=== PATIENT | male | born 1945 | race Caucasian/White ===

== ENCOUNTER → 2018-01-12 | Outpatient (CLI) | payer OTHER ==
[~2018-01-12] MED LIST: ASPEC325 PO; ATOR-22 PO; COENZYME PO; GLC500 PO; MULT-506 PO; NSP500 PO; OMEG10007 PO
--- NOTE | 2018-01-12 10:37 | DIAGNOSTIC IMAGING REPORT ---
HEAD WITHOUT CONTRAST (CT) CLINICAL HISTORY: 72 years-old Male with UNSPECIFIED SYMPTOMS, R/O CVA. Acute strokelike symptoms with aphasia TECHNIQUE: Multiple axial CT images of the head were obtained without contrast. A dose lowering technique was utilized adhering to the principles of ALARA. CT DOSE: 788.63 mGycm COMPARISON: Head CT 03/02/2008. FINDINGS: No acute intracranial hemorrhage, midline shift, intracranial mass, hydrocephalus, territorial ischemia or abnormal extra-axial collection. Moderate degree of ill-defined areas of low-attenuation within the periventricular white matter of the cerebral hemispheres bilaterally have progressed from prior study and suggests chronic microvascular ischemic changes. Cerebral vascular calcifications are seen at the level of the skull base. The calvarium is intact. Small right mastoid effusion. Left mastoid air cells are clear. Mild mucoperiosteal thickening of the ethmoid air cells and maxillary sinuses. Soft tissues and orbits are unremarkable. IMPRESSION: 1. No acute intracranial abnormality identified. 2. Progressively worsened chronic microvascular ischemic changes. 3. Small right mastoid effusion. The above report was generated using voice recognition software. It may contain grammatical, syntax or spelling errors. Electronically signed by: Antonio Whipple M.D. 01/12/2018 10:36 AM Dictated Date/Time: 01/12/2018 10:34 AM
== END | disposition home or self-care (01) ==
LOC: C.CTS 10:17
PROVIDERS: ATTEND Student in an Organized Health Care Education/Training Program
DX: R29.90 Unspecified symptoms and signs involving the nervous system (principal); H93.91 Unspecified disorder of right ear

== ENCOUNTER 2019-11-11 18:52 | Inpatient (IN) ==
[2019-11-11] MEDS ORDERED: SODIUM CHLORIDE 0.9% 1000ML 1,000 ML IV SCH (19:30)
--- NOTE | 2019-11-11 19:51 | XRay Report ---
XR chest 1V portable CLINICAL HISTORY: weakness COMPARISON STUDY: 08/08/2018 FINDINGS: The cardiac and mediastinal contours are normal. There is no evidence of focal pulmonary co nsolidation. There is no evidence of failure. No pleural effusions are visualized.[There is a 4 mm ca lcified left upper lung zone granuloma. IMPRESSION: No active disease in the chest. ACT 112: Negative or not required by law. Electronically signed by: Gordo Green M.D. 11/11/2019 7:50 PM
[2019-11-11 20:08] LABS: Hematocrit (blood only) 41.5 % (42-52); Hemoglobin 14.7 g/dL (14.0-18.0); Mean Corpuscular Hemoglobin 30.9 pg (25-34); Mean Corpuscular Hgb Conc 35.4 g/dL (32-36); Mean Corpuscular Volume 87.4 fL (80-100); Mean Platelet Volume 10.6 fL (7.4-10.4); Platelet Count 133 K/uL (130-400); RDW Coefficient of Variation 12.6 % (11.5-14.5); RDW Standard Deviation 40.4 fL (36.4-46.3); Red Blood Count 4.75 M/uL (4.7-6.1); White Blood Count 13.16 K/uL (4.8-10.8)
[2019-11-11 20:26] LABS: Albumin Level 3.8 gm/dl (3.4-5.0); BUN Creatinine Ratio 8.6 (10-20); Calcium 9.3 mg/dl (8.5-10.1); Creatinine Clr Calc Pharmacy 28.3 ml/min; Est GFR (African American) 32.3; Est GFR (Non-African American) 27.9; Potassium 3.5 mmol/L (3.5-5.1)
--- NOTE | 2019-11-11 20:28 | CT Scan Report ---
CT head/brain wo con CLINICAL HISTORY: weakness, abnormal gait, COMPARISON STUDY: 04/10/2018 TECHNIQUE: Axial CT of the brain is performed from the vertex to the skull base. IV contrast was not administered for this examination. A dose lowering technique was utilized adhering to the principles of ALARA. CT DOSE: 624.14 mGycm FINDINGS: No intra or extra-axial mass lesions are visualized. There is no CT evidence of acute cortical infarc tion. There is no evidence of midline shift. There is no acute hemorrhage. No calvarial fractures ar e visualized. There are patchy white matter hypodensities likely on a small vessel basis. There is an old lacunar i nfarct within the deep white matter of the left parietal region There is no evidence of pathologic ventricular dilatation. There is no evidence of acute sinusitis IMPRESSION: No acute intracranial findings ACT 112: Negative or not required by law. Electronically signed by: Gordo Green M.D. 11/11/2019 8:27 PM
[2019-11-11 20:30] LABS: Basophils # (auto) 0.01 K/uL (0-0.2); Basophils % (auto) 0.1 %; Immature Granulocytes # (auto) 0.04 K/uL (0.00-0.02); Immature Granulocytes % (auto) 0.3 %; Lymphocytes # (auto) 0.51 K/uL (1.2-3.4); Lymphocytes % (auto) 3.9 %; Monocytes # (auto) 0.81 K/uL (0.11-0.59); Monocytes % (auto) 6.2 %; Neutrophils # (auto) 11.79 K/uL (1.4-6.5); Neutrophils % (auto) 89.5 %
[2019-11-11 20:45] LABS: Bilirubin,Total 0.7 mg/dl (0.2-1); Globulin 3.8 gm/dl (2.5-4.0); Thyroid Stimulating Hormone 1.07 uIu/ml (0.300-4.500); Total Protein 7.6 gm/dl (6.4-8.2); Troponin I 0.081 ng/ml (0-0.045)
[2019-11-11 21:23] LABS: Influenza A virus by PCR Neg for Influ A (Neg)
[2019-11-11 21:25] LABS: Appearance Urine Cloudy (Clear); Bacteria Urine Automated Negative (Negative); Bilirubin Urine Negative (Negative); Blood Urine 3+ (Negative); Color Urine Dark Yellow; Epithelial Cell Urine Auto 20-30 /lpf (0-5); Glucose Urine UA 2+ (Negative); Ketones Urine Trace (Negative); Leukocyte Esterase Urine Negative (Negative); Nitrite Urine Negative (Negative); Protein Urine 3+ (Negative); RBC Urine Automated 0-4 /hpf (0-4); Specific Gravity Urine 1.031 (1.000-1.030); Urobilinogen Urine Negative (Negative); pH Urine 5.5 (4.5-7.5)
--- NOTE | 2019-11-11 21:30 | Emergency Department Note ---
Entered by Millie Sloan acting as a scribe for History of Present Illness General Chief complaint: Illness Stated complaint: WEAKNESS,COUGH,FLU LIKE SYMTOMS Time Seen by Provider: 11/11/19 19:16 Source: patient and family Mode of arrival: ambulatory Limitations: no limitations History of Present Illness Provider complaint: Weakness Onset (ago): day(s) 5 Pain Consistency: + other (worsening) Quality: + other (weakness) Associated symptoms: + cough, + loss of appetite and + nausea/vomiting; no chest pain, no fever/chills and no shortness of breath Treatments prior to arrival: none The patient is a 73 year old male with a history of type 2 diabetes, atrial fibrillation on Coumadin, TIA in July 2018, GERD, hypertension, hypercholesterolemia, restless leg syndrome, and arterial stent who presents to the Emergency Room with complaints of worsening weakness starting 5 days ago. The patient reports that he is so weak that he can no longer get out of his chair. He states that he is normally very active, so this is unusual for him. He adds that he stopped taking his regular medication 3 days ago. The patient also complains of a loss of appetite and cough, and his daughter adds that he vomited when he tried to take his medications yesterday. The patient explains that he has still been able to sleep and notes that he feels better when he sleeps. He denies any fevers, shortness of breath, and chest pain, in addition to any recent falls and trauma. He reports that he is currently on Plavix and is a former smoker. He states that Dr. Brooks is his PCP. Home Medications Home Medications Medication Instructions Recorded Confirmed Type aspirin 81 mg PO DAILY 08/08/18 11/11/19 History clopidogrel 75 mg PO DAILY 08/08/18 11/11/19 History metformin 500 mg PO BID 08/08/18 11/11/19 History multivitamin 1 tab PO DAILY 08/08/18 11/11/19 History omeprazole 20 mg PO BID 08/08/18 11/11/19 History metoprolol tartrate 50 mg PO BID #60 tab 08/11/18 11/11/19 Rx niacin 1,000 mg PO DAILY #60 cap 08/11/18 11/11/19 Rx ropinirole 0.25 mg PO HS #0 tab 11/15/18 02/15/20 Rx amitriptyline 10 mg PO HS 11/11/19 11/11/19 History ezetimibe 10 mg PO DAILY 11/11/19 11/11/19 History fenofibrate nanocrystallized 145 mg PO DAILY 11/11/19 11/11/19 History [Tricor] losartan 25 mg PO DAILY 11/11/19 11/11/19 History vardenafil [Levitra] 20 mg PO UD PRN 11/11/19 11/11/19 History Allergies Allergy/AdvReac Type Severity Reaction Status Date / Time atorvastatin Allergy Unknown PER Unverified 09/14/18 14:03 [facility] lovastatin Allergy Unknown PER Unverified 09/14/18 14:03 [facility] niacin Allergy Unknown PER Unverified 08/08/18 23:31 [facility] Ossfamr-Rza-Xcu Reductase Allergy Unknown PER Unverified 09/14/18 14:03 Inhibitor [facility] telithromycin Allergy Unknown PER Unverified 09/14/18 14:03 [facility] STERIODS Allergy Unknown . Uncoded 09/14/18 14:03 Past Med/Surg History Medical History (Updated 11/11/19 @ 21:42 by Renee Duncan MD) GERD (gastroesophageal reflux disease) HTN (hypertension) Hypercholesteremia Mini stroke On Coumadin for atrial fibrillation Presence of arterial stent L leg, unable to relate exact location. TIA (transient ischemic attack) Type II diabetes mellitus Surgical History (Updated 11/11/19 @ 22:26 by Raul Mark MD) H/O vasectomy No significant past surgical history Social History Preferred Language: Macedonian Communication Ability: Effective Tobacco Wrapping Machine Tender Required: No Beliefs That Will Affect Care: None Current Living Situation: Alone Other Information That Helps Us Care for You: No Feels Safe at Home: Yes Safety Concerns: Feels Safe At This Time Smoking Status: Former smoker Hx Alcohol Use: Yes Alcohol type: beer Hx Substance Use: No Review of Systems See HPI for pertinent positives & negatives. and A total of 10 systems reviewed and were otherwise negative Physical Exam Vital Signs Vital Signs - 24 hr 11/11/19 20:53 11/11/19 20:58 11/11/19 21:23 Pulse Rate 113 H 108 H Pulse Rate [Right Finger] 105 H Pulse Rate from SpO2 Sensor 115 H 109 H Pulse Rhythm [Right Finger] Regular Respiratory Rate 26 H 20 24 Respiratory Effort / Characteristics Non-Labored Spontaneous Respiratory Depth Normal Blood Pressure 202/100 H 167/95 H Blood Pressure [Right Arm] 202/100 H Blood Pressure Mean 155 103 Blood Pressure Mean [Right Arm] 134 Pulse Oximetry 96 96 96 Oxygen Delivery Method Room Air Room Air 11/11/19 21:31 11/11/19 22:00 Pulse Rate 110 H 103 H Pulse Rate [Right Finger] Pulse Rate from SpO2 Sensor 110 H 103 H Pulse Rhythm [Right Finger] Respiratory Rate 26 H 26 H Respiratory Effort / Characteristics Respiratory Depth Blood Pressure 166/84 H Blood Pressure [Right Arm] Blood Pressure Mean 101 Blood Pressure Mean [Right Arm] Pulse Oximetry 95 98 Oxygen Delivery Method Room Air Vital signs reviewed. General: Well-appearing male, in no significant distress, generalized weakness. HEENT: No scleral icterus, PERRLA, neck supple. Atraumatic. Cardiovascular: Regular rate and rhythm, no extra sounds. Pulmonary: Clear to auscultation bilaterally, normal work of breathing. Abdomen: Soft, nontender, nondistended, positive bowel sounds. Musculoskeletal: Atraumatic, no peripheral edema. Neurologic: Patient awake alert and oriented x 3 Skin: Warm, dry, no rash Course Course 1920: The patient was evaluated in room B7, and a complete history and physical examination were performed. 2103: I reviewed the patient's case with Dr. Rose Guzman. Dr. Rose will evaluate the patient for further management. Consultations Consultation #1: I reviewed the patient's case with Dr. Rose Guzman. Dr. Rose will evaluate the patient for further management. Time: 21:04 Administered Medications Aspirin (Ecotrin Ectab) 81 mg PO DAILY [facility] Stop: 12/12/19 08:59 Last Admin: 11/12/19 08:35 Dose: 81 mg Documented by: [id number] Clopidogrel Bisulfate (Plavix) 75 mg PO DAILY [facility] Stop: 12/12/19 08:59 Last Admin: 11/12/19 08:35 Dose: 75 mg Documented by: [id number] Sodium Chloride (1/2 Nss) 1,000 mls @ 125 mls/hr IV .Q8H [facility] Stop: 12/12/19 00:00 Last Admin: 11/12/19 17:26 Dose: 125 mls/hr Documented by: [id number] Infusion: 11/12/19 17:26 Dose: 125 mls/hr Documented by: [id number] Admin: 11/12/19 09:44 Dose: 125 mls/hr Documented by: [id number] Infusion: 11/12/19 08:50 Dose: 0 mls/hr Documented by: [id number] Infusion: 11/12/19 00:46 Dose: 125 mls/hr Documented by: [id number] Infusion: 11/12/19 00:15 Dose: 0 mls/hr Documented by: [id number] Admin: 11/12/19 00:15 Dose: 125 mls/hr Documented by: [id number] Insulin Aspart (Novolog Flexpen) 0 units SC ACHS [facility] Stop: 12/12/19 00:00 Last Admin: 11/12/19 17:27 Dose: 2 units Documented by: [id number] Cosigned by: [id number] Admin: 11/12/19 12:11 Dose: Not Given Documented by: [id number] Cosigned by: [id number] Admin: 11/12/19 08:34 Dose: 6 units Documented by: [id number] Cosigned by: [id number] Admin: 11/12/19 00:18 Dose: Not Given Documented by: [id number] Cosigned by: [id number] Metoprolol Tartrate (Lopressor) 50 mg PO BID [facility] Stop: 12/11/19 23:24 Last Admin: 11/12/19 08:35 Dose: 50 mg Documented by: [id number] Admin: 11/12/19 00:11 Dose: 50 mg Documented by: [id number] Multivitamins (Multivitamin Tab) 1 tab PO DAILY [facility] Stop: 12/12/19 08:59 Last Admin: 11/12/19 08:35 Dose: 1 tab Documented by: [id number] Oseltamivir Phosphate (Tamiflu) 30 mg PO DAILY [facility]; Protocol Stop: 11/17/19 08:59 Last Admin: 11/12/19 08:35 Dose: 30 mg Documented by: [id number] Pantoprazole Sodium (Protonix) 40 mg PO BID [facility] Stop: 12/11/19 23:44 Last Admin: 11/12/19 08:35 Dose: 40 mg Documented by: [id number] Admin: 11/12/19 00:11 Dose: 40 mg Documented by: [id number] Discontinued Medications Sodium Chloride (Nss 1000ml) 1,000 mls @ 125 mls/hr IV .Q8H [facility] Stop: 11/12/19 03:29 Last Infusion: 11/11/19 23:38 Dose: 0 mls/hr Documented by: [id number] Admin: 11/11/19 19:55 Dose: 125 mls/hr Documented by: [id number] Sodium Chloride (Nss 1000ml) 500 mls @ 999 mls/hr IV .Q31M ONE Stop: 11/11/19 23:55 Last Infusion: 11/12/19 00:46 Dose: 0 mls/hr Documented by: [id number] Admin: 11/12/19 00:10 Dose: 999 mls/hr Documented by: [id number] Ceftriaxone Sodium 2,000 mg/ (Dextrose) 70 mls @ 100 mls/hr IV ONE ONE Stop: 11/12/19 00:26 Last Infusion: 11/12/19 01:27 Dose: 0 mls/hr Documented by: [id number] Admin: 11/12/19 00:10 Dose: 100 mls/hr Documented by: [id number] Doxycycline Hyclate 100 mg/ (Dextrose) 110 mls @ 50 mls/hr IV NOW STA Stop: 11/12/19 06:09 Last Infusion: 11/12/19 06:34 Dose: 0 mls/hr Documented by: [id number] Admin: 11/12/19 04:18 Dose: 50 mls/hr Documented by: [id number] Cefepime HCl 2,000 mg/ Syringe 20 mls @ 5 mls/min IV 0945 ONE Stop: 11/12/19 09:48 Last Admin: 11/12/19 09:44 Dose: 5 mls/min Documented by: [id number] Vancomycin HCl 2,000 mg/ (Sodium Chloride) 540 mls @ 200 mls/hr IV 1000 ONE Stop: 11/12/19 12:41 Last Infusion: 11/12/19 12:39 Dose: 0 mls/hr Documented by: [id number] Admin: 11/12/19 09:44 Dose: 200 mls/hr Documented by: [id number] Medical Decision Making Differential Diagnosis Differential diagnosis: Etiologies such as metabolic, infection, hypo/hyperglycemia, electrolyte abnormalities, cardiac sources, intracerebral event, toxicologic, neurologic, as well as others were entertained. Medical Records Attestation: I reviewed the patient's medical records. Home Medications Current Medication List: was personally reviewed by me Laboratory Data Attestation: I reviewed the patient's lab results. Result diagrams: 11/12/19 07:15 11/12/19 13:48 Lab Results 11/11/19 11/11/19 11/11/19 Range/Units 19:55 19:55 19:55 WBC 13.16 H (4.8-10.8) K/uL RBC 4.75 (4.7-6.1) M/uL Hgb 14.7 (14.0-18.0) g/dL Hct 41.5 L (42-52) % MCV 87.4 (80-100) fL MCH 30.9 (25-34) pg MCHC 35.4 (32-36) g/dL RDW Std Deviation 40.4 (36.4-46.3) fL RDW Coeff of Brice 12.6 (11.5-14.5) % Plt Count 133 (130-400) K/uL MPV 10.6 H (7.4-10.4) fL Immature Gran % (Auto) 0.3 % Neut % (Auto) 89.5 % Lymph % (Auto) 3.9 % Hardy % (Auto) 6.2 % Eos % (Auto) 0.0 % Baso % (Auto) 0.1 % Immature Gran # (Auto) 0.04 H (0.00-0.02) K/uL Neut # (Auto) 11.79 H (1.4-6.5) K/uL Lymph # (Auto) 0.51 L (1.2-3.4) K/uL Hardy # (Auto) 0.81 H (0.11-0.59) K/uL Eos # (Auto) 0.00 (0-0.5) K/uL Baso # (Auto) 0.01 (0-0.2) K/uL Sodium 137 (136-145) mmol/L Potassium 3.5 (3.5-5.1) mmol/L Chloride 103 (98-107) mmol/L Carbon Dioxide 23 (21-32) mmol/L Anion Gap 10.0 (3-11) BUN 19 H (7-18) mg/dl Creatinine 2.25 H (0.6-1.4) mg/dl Est Cr Clr Drug Dosing 28.3 ml/min Est GFR ( Amer) 32.3 Est GFR (Non-Af Amer) 27.9 BUN/Creatinine Ratio 8.6 L (10-20) Glucose 194 H (70-99) mg/dl Calcium 9.3 (8.5-10.1) mg/dl Total Bilirubin 0.7 (0.2-1) mg/dl AST 50 H (15-37) U/L ALT 41 (12-78) U/L Alkaline Phosphatase 61 (45-117) U/L Troponin I 0.081 H* (0-0.045) ng/ml Total Protein 7.6 (6.4-8.2) gm/dl Albumin 3.8 (3.4-5.0) gm/dl Globulin 3.8 (2.5-4.0) gm/dl Albumin/Globulin Ratio 1.0 (0.9-2) Procalcitonin 16.78 H (0-0.5) ng/ml TSH 1.070 (0.300-4.500) uIu/ml Urine Color Urine Appearance (Clear) Urine pH (4.5-7.5) Ur Specific Derwent (1.000-1.030) Urine Protein (Negative) Urine Glucose (UA) (Negative) Urine Ketones (Negative) Urine Blood (Negative) Urine Nitrite (Negative) Urine Bilirubin (Negative) Urine Urobilinogen (Negative) Ur Leukocyte Esterase (Negative) Urine WBC (Auto) (0-5) /hpf Urine RBC (Auto) (0-4) /hpf U Hyaline Cast (Auto) (0-5) /lpf U Epithel Cells (Auto) (0-5) /lpf Urine Bacteria (Auto) (Negative) Granular Casts (0) /lpf Influenza Type A (PCR) (Neg) Influenza Type B (PCR) (Neg) 11/11/19 11/11/19 Range/Units 20:35 20:55 WBC (4.8-10.8) K/uL RBC (4.7-6.1) M/uL Hgb (14.0-18.0) g/dL Hct (42-52) % MCV (80-100) fL MCH (25-34) pg MCHC (32-36) g/dL RDW Std Deviation (36.4-46.3) fL RDW Coeff of Brice (11.5-14.5) % Plt Count (130-400) K/uL MPV (7.4-10.4) fL Immature Gran % (Auto) % Neut % (Auto) % Lymph % (Auto) % Hardy % (Auto) % Eos % (Auto) % Baso % (Auto) % Immature Gran # (Auto) (0.00-0.02) K/uL Neut # (Auto) (1.4-6.5) K/uL Lymph # (Auto) (1.2-3.4) K/uL Hardy # (Auto) (0.11-0.59) K/uL Eos # (Auto) (0-0.5) K/uL Baso # (Auto) (0-0.2) K/uL Sodium (136-145) mmol/L Potassium (3.5-5.1) mmol/L Chloride (98-107) mmol/L Carbon Dioxide (21-32) mmol/L Anion Gap (3-11) BUN (7-18) mg/dl Creatinine (0.6-1.4) mg/dl Est Cr Clr Drug Dosing ml/min Est GFR ( Amer) Est GFR (Non-Af Amer) BUN/Creatinine Ratio (10-20) Glucose (70-99) mg/dl Calcium (8.5-10.1) mg/dl Total Bilirubin (0.2-1) mg/dl AST (15-37) U/L ALT (12-78) U/L Alkaline Phosphatase (45-117) U/L Troponin I (0-0.045) ng/ml Total Protein (6.4-8.2) gm/dl Albumin (3.4-5.0) gm/dl Globulin (2.5-4.0) gm/dl Albumin/Globulin Ratio (0.9-2) Procalcitonin (0-0.5) ng/ml TSH (0.300-4.500) uIu/ml Urine Color Dark Yellow Urine Appearance Cloudy A (Clear) Urine pH 5.5 (4.5-7.5) Ur Specific Derwent 1.031 H (1.000-1.030) Urine Protein 3+ H (Negative) Urine Glucose (UA) 2+ H (Negative) Urine Ketones Trace H (Negative) Urine Blood 3+ H (Negative) Urine Nitrite Negative (Negative) Urine Bilirubin Negative (Negative) Urine Urobilinogen Negative (Negative) Ur Leukocyte Esterase Negative (Negative) Urine WBC (Auto) 1-5 (0-5) /hpf Urine RBC (Auto) 0-4 (0-4) /hpf U Hyaline Cast (Auto) 1-5 (0-5) /lpf U Epithel Cells (Auto) 20-30 H (0-5) /lpf Urine Bacteria (Auto) Negative (Negative) Granular Casts 5-10 H (0) /lpf Influenza Type A (PCR) Neg for Influ A (Neg) Influenza Type B (PCR) Pos for Influ B A* (Neg) Imaging Data Radiologist's Impression: Radiology results as stated below per my review and the radiologist's interpretation: CT head/brain wo con CLINICAL HISTORY: weakness, abnormal gait, COMPARISON STUDY: 04/10/2018 TECHNIQUE: Axial CT of the brain is performed from the vertex to the skull base. IV contrast was not administered for this examination. A dose lowering technique was utilized adhering to the principles of ALARA. CT DOSE: 624.14 mGycm FINDINGS: No intra or extra-axial mass lesions are visualized. There is no CT evidence of acute cortical infarction. There is no evidence of midline shift. There is no acute hemorrhage. No calvarial fractures are visualized. There are patchy white matter hypodensities likely on a small vessel basis. There is an old lacunar infarct within the deep white matter of the left parietal region There is no evidence of pathologic ventricular dilatation. There is no evidence of acute sinusitis IMPRESSION: No acute intracranial findings ACT 112: Negative or not required by law. Electronically signed by: Gordo Green M.D. 11/11/2019 8:27 PM XR chest 1V portable CLINICAL HISTORY: weakness COMPARISON STUDY: 08/08/2018 FINDINGS: The cardiac and mediastinal contours are normal. There is no evidence of focal pulmonary consolidation. There is no evidence of failure. No pleural effusions are visualized.[There is a 4 mm calcified left upper lung zone granuloma. IMPRESSION: No active disease in the chest. ACT 112: Negative or not required by law. Electronically signed by: Gordo Green M.D. 11/11/2019 7:[address] SCAN OF THE ABDOMEN AND PELVIS WITHOUT CONTRAST CLINICAL HISTORY: Fever, malaise, flulike symptoms. A acute renal failure. COMPARISON STUDY: September 2011 TECHNIQUE: CT scan of the abdomen and pelvis was performed from the lung bases to the proximal femurs. Images are reviewed in the axial, sagittal, and coronal planes. IV contrast was not administered for this examination. A dose lowering technique was utilized adhering to the principles of ALARA. CT DOSE: 979.25 mGycm FINDINGS: Lower chest: There is mild lower lobe bronchial wall thickening with areas of mucous plugging. There are subtle right lower lobe and lingular nodular airspace opacities, statistically infectious/inflammatory Liver: There is hepatic steatosis. No focal hepatic masses are visualized. Gallbladder: Unremarkable. Spleen: Mildly enlarged measuring 14.5 cm. Pancreas: Unremarkable. 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 There is no h ydronephrosis. The right kidney measures 10.3 cm in length. The left kidney measures 7.1 cm in length. Bowel: There are no transition zones indicate bowel obstruction. There is no evidence of acute appendicitis. There is no evidence of acute diverticulitis. Peritoneum: There is no intraperitoneal free air or abdominal ascites. Vasculature: The abdominal aorta is normal in course and caliber. Adenopathy: None Pelvic viscera: There is mild prostatomegaly. Skeletal structures: No destructive osseous lesions are seen. IMPRESSION: 1. No evidence of bowel obstruction. No evidence of free air 2. Hepatic steatosis 3. Mild left renal atrophy. No evidence of hydronephrosis. 4. 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 Mild splenomegaly 6. Mild prostatomegaly 7. No evidence of acute appendicitis. No evidence of acute diverticulitis. 8. Mild lower lobe bronchial wall thickening. Subtle nodular airspace right lower lobe and lingular opacities, likely infectious/inflammatory ACT 112: Negative or not required by law. Electronically signed by: Gordo Green M.D. 11/11/2019 9:32 PM Dictated: 11/11/192123 Transcribed: 11/11/192123 ECG Data Attestation: I personally reviewed and interpreted this ECG as follows: Indication: + weakness Rate (beats per minute): 117 Rhythm: + sinus tachycardia ECG Intervals/blocks: + Prolonged QT (488) ECG Findings: + Other (likely previous anterior infarct, T-wave flattening inferiorly, nonspecific ST change laterally); no PACs and no PVCs Additional Comments: An order was placed for cardiac monitoring and the patient was found to be in a sinus tachycardia at 110 bpm Blood Pressure Blood Pressure Findings: Elevated blood pressure Blood Pressure Disposition: further management by hospitalist DAYANA Narrative This patient was evaluated and appeared to be in no significant distress. IV access was obtained and laboratory work was drawn. The patient was placed on the monitor car operator and found to be in a sinus tachycardia. Patient is noted to be hypertensive. Head CT was performed and reveals no evidence of acute intracranial abnormality. Chest x-ray is negative. Patient's creatinine is 2.26 with a troponin of 0.081 and a white blood cell count of 13.16. Patient was hydrated with normal saline solution. Noncontrast CT of the abdomen pelvis was performed and reveals no evidence of renal obstruction, there is concern over lower bronchial wall thickening and subtle infiltrate. The patient has tested positive for influenza B. Have discussed the case with the hospitalist service who will evaluate the patient for further management. Patient and daughter are aware of the plan and agree. Impression & Plan Acute renal failure, Elevated troponin, Influenza B Discharge Plan Visit Data *Final* Discharge Date/Time: 11/11/19 23:04 Chief Complaint: Illness Stated Complaint: WEAKNESS,COUGH,FLU LIKE SYMTOMS ED Provider: Renee Duncan Discharge Problem: Acute renal failure, Elevated troponin, Influenza B Patient Disposition: Admitted As Inpatient Condition: Good Discharge Instructions Interventions: ED Discharge Assessment Last Done: 11/11/19 23:04 Discharge Problem: Acute renal failure Qualifiers: Acute renal failure type: unspecified Qualified Code(s): N17.9 - Acute kidney failure, unspecified The scribe's documentation has been prepared under my direction and personally reviewed by me in its entirety. I confirm that the note above accurately reflects all work, treatment, procedures, and medical decision making performed by me.
--- NOTE | 2019-11-11 21:33 | CT Scan Report ---
CT SCAN OF THE ABDOMEN AND PELVIS WITHOUT CONTRAST CLINICAL HISTORY: Fever, malaise, flulike symptoms. A acute renal failure. COMPARISON STUDY: September 2011 TECHNIQUE: CT scan of the abdomen and pelvis was performed from the lung bases to the proximal femurs . Images are reviewed in the axial, sagittal, and coronal planes. IV contrast was not administered fo r this examination. A dose lowering technique was utilized adhering to the principles of ALARA. CT DOSE: 979.25 mGycm FINDINGS: Lower chest: There is mild lower lobe bronchial wall thickening with areas of mucous plugging. There are subtle right lower lobe and lingular nodular airspace opacities, statistically infectious/inflamm atory Liver: There is hepatic steatosis. No focal hepatic masses are visualized. Gallbladder: Unremarkable. Spleen: Mildly enlarged measuring 14.5 cm. Pancreas: Unremarkable. 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 There is no hydronephrosis. The right kidney measures 10.3 cm in length. The left kidney measures 7.1 cm in length. Bowel: There are no transition zones indicate bowel obstruction. There is no evidence of acute append icitis. There is no evidence of acute diverticulitis. Peritoneum: There is no intraperitoneal free air or abdominal ascites. Vasculature: The abdominal aorta is normal in course and caliber. Adenopathy: None Pelvic viscera: There is mild prostatomegaly. Skeletal structures: No destructive osseous lesions are seen. IMPRESSION: 1. No evidence of bowel obstruction. No evidence of free air 2. Hepatic steatosis 3. Mild left renal atrophy. No evidence of hydronephrosis. 4. 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 Mild splenomegaly 6. Mild prostatomegaly 7. No evidence of acute appendicitis. No evidence of acute diverticulitis. 8. Mild lower lobe bronchial wall thickening. Subtle nodular airspace right lower lobe and lingular o pacities, likely infectious/inflammatory ACT 112: Negative or not required by law. Electronically signed by: Gordo Green M.D. 11/11/2019 9:32 PM
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
[2019-11-11] MEDS ORDERED: DEXTROSE 50% 50 ML SYRINGE IV PRN (23:25)
[2019-11-11] MEDS ORDERED: GLUCOSE 40% GEL 15 GM TUBE PO PRN (23:25)
[2019-11-11] MEDS ORDERED: SODIUM CHLORIDE 0.9% 1000ML 500 ML IV ONE (23:25)
[2019-11-11] MEDS ORDERED: ACETAMINOPHEN 325 MG TAB PO PRN (23:25)
[2019-11-11] MEDS ORDERED: GLUCAGON FOR INJ 1 MG VIAL SQ PRN (23:25)
[2019-11-11] MEDS ORDERED: GLUCOSE 10 TABS/TUBE PO PRN (23:25)
[2019-11-11] MEDS ORDERED: CARBOHYDRATES FOR HYPOGLYCEMIA PO PRN (23:25)
[2019-11-11] MEDS ORDERED: ONDANSETRON INJ 2 MG/ML 2 ML VIAL IV PRN (23:25)
[2019-11-11] MEDS ORDERED: PNEUMOCOCCAL ADMINISTRATION CHARGE ONE (23:44)
[2019-11-11] MEDS ORDERED: PNEUMOCOCCAL POLYSACCHARIDES 25 MCG/0.5 ML VIAL/SYR IM ONE (23:44)
[2019-11-11] MEDS ORDERED: cefTRIAXone SODIUM 2,000 MG in DEXTROSE 5% 50 ML IV ONE (23:45)
[2019-11-11] MEDS ORDERED: PHARMACY GLYCEMIC MGMT CONSULT PRN (23:59)
[2019-11-12] MEDS: METOPROLOL TARTRATE 50 MG TAB PO SCH ×3 (00:11→20:09)
[2019-11-12] MEDS: PANTOprazole 40 MG TAB PO SCH ×3 (00:11→20:11)
[2019-11-12] MEDS: SODIUM CHLORIDE 0.45 % 1,000 ML IV SCH ×3 (00:15→17:26)
[2019-11-12] MEDS: INSULIN ASPART 100 UNITS/ML 3 ML PEN SC SCH ×5 (00:18→20:11)
--- NOTE | 2019-11-12 02:34 | Communication Note ---
Date of Service: November 12, 2019 Pt with a fall ambulating to restroom this evening. Denies hitting his head, but nursing was concerned this may not be accurate. Reports he felt tangled by the IV pole but was not lightheaded/dizzy. On exam no abrasions/hematoma, A&Ox3 and appearing unchanged. On reassessment 1 hours later pt was confused, and was oriented but with some bizzare behavior (putting watch over IV site) and not following commands as well. No focal neuro deficits, PERLAA. CT-noncon ordered for evaluation. Given positive procal and concern for superimposed PNA, non urg ent CT-chest also ordered.
[2019-11-12] MEDS ORDERED: DOXYCYCLINE HYCLATE 100 MG in DEXTROSE 5% 100 ML IV STA (03:58)
--- NOTE | 2019-11-12 05:15 | Billing Data ---
Date of Service November 11, 2019 Coding Level of Care Code 96438 Initial Inpt Care Lvl 3
--- NOTE | 2019-11-12 07:20 | CT Scan Report ---
CT SCAN OF THE CHEST WITHOUT IV CONTRAST CLINICAL HISTORY: Fall. Generalized weakness. Pneumonia. COMPARISON STUDY: Chest x-ray dated 11/11/2019. Abdominal CT dated 11/11/2019. TECHNIQUE: CT scan of the thorax was performed from the thoracic inlet to the upper abdomen. Images are reviewed in the axial, sagittal, and coronal planes. IV contrast was not administered for this ex amination as per the referring clinician. A dose lowering technique was utilized adhering to the [place] of [place]. CT DOSE: 479.63 mGycm FINDINGS: Thyroid: Imaged portions of the thyroid gland are normal in size and attenuation. Thoracic aorta: There is atherosclerotic calcification of the thoracic aorta. The ascending thoracic aorta is mildly ectatic measuring up to 3.7 cm in diameter. The remainder of the thoracic aorta is no rmal in caliber and the arch demonstrates standard 3-vessel anatomy. Heart: The heart is top normal in size and without pericardial effusion. The coronary arteries are de nsely calcified. Lungs and pleural spaces: There is dense airspace consolidation in the right lower lobe. Milder patch y groundglass consolidation is identified throughout the right upper lobe. Minimal patchy consolidati ve changes seen throughout the left upper lobe and at the left lung base. No pleural effusion is seen . The trachea and central airways are clear. Mild diffuse peribronchial thickening is observed. A lar ge calcified granuloma is again seen at the left apex. Mediastinum: Scattered subcentimeter mediastinal lymph nodes are not pathologically enlarged by size criteria. Aaliyah: Not well assessed without IV contrast. Axillae: There is no axillary lymphadenopathy. Upper abdomen: There is a small hiatal hernia. There is evidence of hepatic steatosis. The partially imaged spleen is enlarged measuring at least 14 cm in length. Skeletal structures: The skeletal structures are osteopenic. No lytic or blastic bony lesions are see n. IMPRESSION: 1. Findings are typical for multifocal pneumonia. This has significantly progressed at the right lung base as compared yesterday's abdominal CT. 2. No pleural effusion is identified. 3. Hepatic steatosis and splenomegaly. 4. Additional findings as above. ACT 112: Negative or not required by law. Electronically signed by: Bryant Graves M.D. 11/12/2019 7:18 AM
--- NOTE | 2019-11-12 07:24 | CT Scan Report ---
CT SCAN OF THE BRAIN WITHOUT IV CONTRAST CLINICAL HISTORY: Fall. Change in mental status. COMPARISON STUDY: CT of the brain dated 11/11/2019. TECHNIQUE: Unenhanced axial CT scan of the brain is performed from the vertex to the skull base. A do se lowering technique was utilized adhering to the principles of ALARA. CT DOSE: 788.63 mGycm FINDINGS: Brain parenchyma: There are age-related involutional changes noting moderate confluent subcortical a nd periventricular microangiopathic change. There is no hemorrhage, mass effect, or evidence of acute territorial ischemia by CT criteria. Chin-white matter differentiation is preserved. No extra-axial fluid collection is seen. Ventricles, sulci, cisterns: Prominent secondary to involutional change. Intracranial vasculature: There is atherosclerotic calcification of the cavernous carotid and vertebr al arteries. Calvarium: Unremarkable. Sinuses and mastoids: There is evidence of previous paranasal sinus surgery. The visualized paranasal sinuses are clear. The mastoid air cells are well pneumatized. Orbits: The bony orbits are grossly intact. IMPRESSION: There is no hemorrhage, mass effect, or evidence of acute territorial ischemia by CT daisy keller. ACT 112: Negative or not required by law. Electronically signed by: Bryant Graves M.D. 11/12/2019 7:23 AM
[2019-11-12 07:39] LABS: Hematocrit (blood only) 38.6 % (42-52); Hemoglobin 13.5 g/dL (14.0-18.0); Mean Corpuscular Hemoglobin 31.3 pg (25-34); Mean Corpuscular Volume 89.4 fL (80-100); Mean Platelet Volume 10.9 fL (7.4-10.4); Platelet Count 108 K/uL (130-400); RDW Coefficient of Variation 12.8 % (11.5-14.5); RDW Standard Deviation 41.6 fL (36.4-46.3); Red Blood Count 4.32 M/uL (4.7-6.1)
[2019-11-12 08:05] LABS: BUN Creatinine Ratio 9.5 (10-20); Calcium 8.8 mg/dl (8.5-10.1); Creatinine Clr Calc Pharmacy 33.3 ml/min; Est GFR (African American) 39.4; Potassium 3.3 mmol/L (3.5-5.1)
[2019-11-12 08:15] LABS: Basophils # (auto) 0.01 K/uL (0-0.2); Basophils % (auto) 0.1 %; Immature Granulocytes # (auto) 0.03 K/uL (0.00-0.02); Immature Granulocytes % (auto) 0.3 %; Lymphocytes % (auto) 8.5 %; Monocytes # (auto) 0.45 K/uL (0.11-0.59); Monocytes % (auto) 4.2 %; Neutrophils # (auto) 9.21 K/uL (1.4-6.5); Neutrophils % (auto) 86.9 %
[2019-11-12] MEDS: MULTIVITAMIN TAB PO SCH (08:35)
[2019-11-12] MEDS: OSELTAMIVIR PHOSPHATE SUSP 30 MG/5 ML UDP PO SCH (08:35)
[2019-11-12] MEDS: CLOPIDOGREL BISULFATE 75 MG TAB PO SCH (08:35)
[2019-11-12] MEDS: ASPIRIN 81 MG ECTAB PO SCH (08:35)
[2019-11-12] MEDS ORDERED: VANCOMYCIN CONSULT ACTIVE PRN ×2 (09:20)
[2019-11-12] MEDS ORDERED: CEFEPIME CONSULT ACTIVE PRN (09:22)
[2019-11-12] MEDS ORDERED: CEFEPIME 2,000 MG in SYRINGE 7.5 ML IV ONE (09:45)
[2019-11-12] MEDS ORDERED: CEFEPIME 2,000 MG/20 ML VIAL IV ONE (09:45)
--- NOTE | 2019-11-12 09:46 | Pharmacy Report ---
Pharmacy Abx Initial Consult - Date of Service November 12, 2019 - Pharmacy Dosing Scope Date of Consult: 11/12/19 Consultation requested by: Dr. Greenberg Pharmacy is consulted to initiate Vancomycin + Cefepim IV dosing therapy, order appropriate labs and adjust drug dose/frequency. - Subjective The patient is a 73 year old M admitted on 11/11/19 22:34. - Objective Height: 5 ft 8 in Weight: 81.6 kg Vital Signs (Past 12hrs): Vital Signs Temp Pulse Pulse Resp BP BP Pulse Ox 11/12/19 07:22 37.3 C 108 H 20 130/77 94 11/12/19 02:01 37.2 C 90 18 175/95 H 93 11/11/19 23:31 36.9 C 103 H 20 189/100 H 96 11/11/19 22:00 103 H 26 H 166/84 H 98 Lab Results (24hrs): Laboratory Tests (24 Hours) 11/12/19 11/12/19 11/11/19 07:15 07:15 19:55 WBC 10.60 Neut # (Auto) 9.21 H Creatinine 1.91 H D Est Cr Clr Drug Dosing 33.3 Procalcitonin 16.78 H 11/11/19 11/11/19 19:55 19:55 WBC 13.16 H Neut # (Auto) 11.79 H Creatinine 2.25 H Est Cr Clr Drug Dosing 28.3 Procalcitonin Micro Results: 11/12/19 07:15 Aerobic Blood Culture - Pending Blood Anaerobic Blood Culture - Pending 11/12/19 00:00 Aerobic Blood Culture - Pending Blood Anaerobic Blood Culture - Pending - Assessment & Plan Assessment 73 year old M with +Flu B and superimposed PNA. Initially ordered doxycycline but therapy broadened to Vanco + Cefepime today. Scr significantly elevated from baseline (1-1.1mg/dl). Scr improving but not yet at baseline. Will start with vanco load and conservative maintenance dose- adjust dose/interval as renal function continues to improve. Plan Vancomycin IV * Modified AUC dosing- will adjust as renal function improves * Loading dose: 2,000 mg (25 mg/kg) * Maintenance dose: 1,500 mg IV (18 mg/kg) every 24 hours * Goal trough level for Pulmonary : 15 to 20 mcg/mL * Will order a trough level once renal function and dose stabilize Cefepime * Target dose is 2gm IV Q8hrs. * For CrCl 30-60 ml.min --> reduce dosing to 2,000mg IV Q12hrs. Pharmacy will continue to follow and will adjust dose/frequency as necessary. Thank you.
[2019-11-12] MEDS ORDERED: VANCOMYCIN HCL 2,000 MG in SODIUM CHLORIDE 0.9% 500 ML IV ONE (10:00)
--- NOTE | 2019-11-12 10:18 | Pharmacy Report ---
Glycemic Control Consultation - Date of Service November 12, 2019 - Scope Scope: Glycemic Pharmacist consulted by Dr Mark on 11/12/19 for glycemic control and to write orders per [facility] inpatient glycemic control protocol - Objective Weight: 81.6 kg Accuchecks BSG (last 24hrs): 11/11/19 11/11/19 11/12/19 19:55 23:27 07:15 Glucose 194 H 130 H POC Glucose 135 H 11/12/19 07:42 Glucose POC Glucose 126 H Laboratory Data (last 24hrs): 11/11/19 11/12/19 19:55 07:15 Potassium 3.5 3.3 L Carbon Dioxide 23 21 Anion Gap 10.0 11.0 Creatinine 2.25 H 1.91 H D Est Cr Clr Drug Dosing 28.3 33.3 - Recent Pertinent Medications Outpatient Anti-diabetic Regimen: * Metformin 500mg PO BID * A1c = 6.3 % 07/2018, updated A1c ordered Risk Factors for Insulin Resistance: * Infection:Influenza B + PNA, IV Vancomycin, Cefepime, Tamiflu * Diet: Type 2 DM - Assessment & Plan Assessment & Plan: ASSESSMENT: * 73-year-old male PMH of TIA, hyperlipidemia, GERD, hypertension, type 2DM, admitted with influenza B and superimposed pneumonia. * Pt is maintained on oral antidiabetic agents as an outpatient * Oral agents are not recommended for inpatient use d/t drug interactions, changing PO intake, and difficulty titrating for acute hyper/hypoglycemia. ADA recommends re-initiating outpatient oral agents 1-2 days prior to discharge if/when appropriate if they were held on admission. * Will hold oral agents for admission and utilize SQ bolus insulin regimen which is the recommended regimen for inpatient glycemic control. * Will initiate weight based insulin dosing for insulin debra patient and titrate based on BSG trends. * Patient euglycemic at this time, will add basal insulin if blood sugars trend up. * ADA & AACE recommend a goal blood sugar range 140-180 mg/dl for the majority of critically ill & non-critically ill patients. However, more stringent targets may be selected in individual cases. Will utilize more stringent goal of 110-140mg/dl based on patient age & comorbidities. Additionally, tighter glycemic control is warranted to facilitate wound/infection healing. PLAN FOR INPATIENT GLYCEMIC CONTROL: * Holding outpatient oral diabetes medications * Bolus insulin * NovoLog per scale ACHS or Q6hrs while NPO * Goal Range: Low 110 mg/dL - High 140 mg/dL * Correction Factor: 30 mg/dL/unit * Nutritional / Prandial insulin per carb ratio of 1 unit per 10 grams CHO consumed * Please note that the plan above was derived based on current level of insulin resistance and hospital stress. These recommendations are appropriate for inpatient admission only. Plan of care upon discharge will need to be reassessed to avoid potential outpatient hypo/hyperglycemia. Thank you.
--- NOTE | 2019-11-12 10:53 | Hospitalist Progress Note ---
Date of Service November 12, 2019 Assessment & Plan (1) Influenza B: Shailesh is a 73-year-old male who was admitted on 11/11/19 for Influenza B and superimposed multifocal bacterial PNA. Metabolic encephalopathy secondary to Influenza B Infection with Superimposed bacterial PNA - Nasal swap + for influenza B on admission (negative for A) CXR on admission negative for consolidation, however Chest CT on 11/12 showed multifocal consolidation indicative of superimposed bacterial PNA - WBC mildly elevated to 13 on admission, procal elevated to 16. WBC normalized to 10 today 11/12 - blood cultures pending - patient received one dose of Rocephin in ED - doxycycline d/c in favor of broad spectrum coverage in the setting of co- influenza infection (and elevated risk for MRD organisms): IV vancomycin and IV cefepime - continue Tamiflu 30 mg daily, dose adjusted for renal function - normal respiratory rate, not requiring supplemental O2 - continue 1/ normal saline at 125 cc/hr - Droplet precautions Acute renal failure Cr elevated to 2.25 on admission; down to 1.97 on 11/12 - baseline creatinine (from 2017) was ~ 1. 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 continue IVF for volume replacement renal dosing of tamiflu and antibiotics; holding home losartan BMP daily Type 2 diabetes, not insulin-dependent Glucose checks AC/at bedtime Hold home oral anti-glycemic's Insulin sliding scale Hypertension BP currently at 130/77 continue metoprolol tartrate 50 mg p.o. twice daily Holding losartan for ARF History of TIA Continue aspirin/Plavix Patient intolerant of statins due to myalgias; on zetia and tricor No focal neuro deficits on exam Hyper triglyceridemia/hyperlipidemia Continue zetia 10 mg daily Continue TriCor 145 mg daily GERD Continue home prtonix DVT prophylaxis: Heparin 5000 sq twice daily Diet: Type II diabetic Disposition: Med/surg Code: Full (2) Acute renal failure: (3) Elevated troponin: (4) TIA (transient ischemic attack): (5) Hypertriglyceridemia: (6) Restless leg syndrome: (7) GERD (gastroesophageal reflux disease): Admission and Anticipated Discharge Date Admission Date: November 11, 2019 Supervising Physician Co-Signing Physician Notes Resident Physician Supervision Note: I independently interviewed and examined the patient and verified the morrison history and physical, reviewed labs and image studies, discussed the case with the resident Dr. Greenberg and agree with the findings and care plan. Subjective No acute events since admission. Patient reports feeling extremely weak. He did have influenza vaccine this season. Review of Systems Review of Systems: All systems reviewed & are unremarkable except as noted in HPI & below Physical Exam Constitutional: WD/WN, vitals as above + ill appearing and cooperative + weakness (patient require assistance to sit up in bed) Eyes: + anicteric sclerae ENMT: external ear and nose normal, oropharynx normal Neck: normal visual inspection and trachea midline Respiratory: normal respiratory effort and symmetric chest movement; no respiratory distress, no labored breathing and not tachypneic Auscultation: + rales (RLL ); no wheezes Cardiovascular: RRR, no murmur, no edema Heart Sounds: normal S1 and normal S2 Gastrointestinal (Abdomen): normal bowel sounds, soft, nontender, no hepatosplenomegaly Inspection/Auscultation: + abdomen distended Skin: no rashes, warm and dry Psychiatric: A+Ox3, euthymic affect Results & Data ([facility]) Vital Signs (Past 12 Hours) Vital Signs Temp Pulse Resp BP Pulse Ox 11/12/19 07:22 37.3 C 108 H 20 130/77 94 11/12/19 02:01 37.2 C 90 18 175/95 H 93 11/11/19 23:31 36.9 C 103 H 20 189/100 H 96 Resident Activity Tracking Resident Involvement: Resident Care Provided Care Provided: Adult Hospital Medicine (1) Acute renal failure Acute renal failure type: unspecified Qualified Code(s): N17.9 - Acute kidney failure, unspecified
--- NOTE | 2019-11-12 14:15 | Electrocardiogram Report ---
Test Reason : Blood Pressure : / mmHG Vent. Rate : 117 BPM Atrial Rate : 117 BPM P-R Int : 136 ms QRS Dur : 086 ms QT Int : 350 ms P-R-T Axes : 037 -02 030 degrees QTc Int : 488 ms Poor data quality, interpretation may be adversely affected Sinus tachycardia Otherwise normal ECG When compared with ECG of 09-AUG-2018 01:25, Vent. rate has increased BY 44 BPM Confirmed by Dax Adkins ([id number]) on 11/12/2019 2:15:16 PM Referred By: REFERRED SELF Confirmed By:Dax Adkins
[2019-11-12 14:17] LABS: BUN Creatinine Ratio 9.3 (10-20); Calcium 8.2 mg/dl (8.5-10.1); Creatinine Clr Calc Pharmacy 32.3 ml/min; Est GFR (Non-African American) 32.7; Potassium 3.3 mmol/L (3.5-5.1)
[2019-11-12] MEDS ORDERED: DOXYCYCLINE HYCLATE 100 MG in DEXTROSE 5% 100 ML IV SCH (16:00)
[2019-11-12] MEDS: ROPINIROLE HCL 0.25 MG TABLET PO SCH (20:09)
[2019-11-12] MEDS: AMITRIPTYLINE HCL 10 MG TAB PO SCH (20:09)
[2019-11-12] MEDS: CEFEPIME 2,000 MG in SYRINGE 7.5 ML IV SCH (21:13)
[2019-11-13] MEDS: SODIUM CHLORIDE 0.45 % 1,000 ML IV SCH ×4 (01:56→20:20)
[2019-11-13] MEDS: HydrALAZINE 10 MG TAB PO PRN (05:57)
[2019-11-13 06:00] LABS: Hemoglobin 11.7 g/dL (14.0-18.0); Mean Corpuscular Hemoglobin 30.7 pg (25-34); Mean Corpuscular Hgb Conc 34.4 g/dL (32-36); Mean Corpuscular Volume 89.2 fL (80-100); RDW Standard Deviation 42.2 fL (36.4-46.3); Red Blood Count 3.81 M/uL (4.7-6.1); White Blood Count 7.79 K/uL (4.8-10.8)
[2019-11-13 06:03] LABS: Estimated Average Glucose 148 mg/dl; Hemoglobin A1C 6.8 % (4.5-5.6)
[2019-11-13 06:23] LABS: Mean Platelet Volume 11.4 fL (7.4-10.4); Platelet Count 98 K/uL (130-400)
[2019-11-13 06:24] LABS: Dohle Bodies Occasional; Immature Granulocytes # (auto) 0.02 K/uL (0.00-0.02); Immature Granulocytes % (auto) 0.3 %; Lymphocytes # (auto) 0.64 K/uL (1.2-3.4); Lymphocytes % (auto) 8.2 %; Monocytes # (auto) 0.38 K/uL (0.11-0.59); Monocytes % (auto) 4.9 %; Neutrophils # (auto) 6.75 K/uL (1.4-6.5); Neutrophils % (auto) 86.6 %; Platelet Estimate Decreased (Normal)
[2019-11-13 06:34] LABS: BUN Creatinine Ratio 10.4 (10-20); Calcium 8.6 mg/dl (8.5-10.1); Creatinine Clr Calc Pharmacy 33.5 ml/min; Est GFR (African American) 39.7; Est GFR (Non-African American) 34.2; Potassium 3.1 mmol/L (3.5-5.1)
[2019-11-13] MEDS: ASPIRIN 81 MG ECTAB PO SCH (08:34)
[2019-11-13] MEDS: METOPROLOL TARTRATE 50 MG TAB PO SCH ×2 (08:34→21:10)
[2019-11-13] MEDS: PANTOprazole 40 MG TAB PO SCH ×2 (08:34→21:10)
[2019-11-13] MEDS: CLOPIDOGREL BISULFATE 75 MG TAB PO SCH (08:35)
[2019-11-13] MEDS: MULTIVITAMIN TAB PO SCH (08:35)
[2019-11-13] MEDS ORDERED: VANCOMYCIN HCL 1,500 MG in SODIUM CHLORIDE 0.9% 500 ML IV SCH (09:00)
--- NOTE | 2019-11-13 09:00 | Pharmacy Report ---
Pharmacy Glycemic Short Note 2 - Date of Service November 13, 2019 - Glycemic Short BSG Results (Last 24 hours): 11/12/19 11/12/19 11/12/19 11:45 13:48 16:48 Glucose 124 H POC Glucose 122 H 119 H 11/12/19 11/13/19 11/13/19 20:04 05:13 08:33 Glucose 105 H POC Glucose 114 H 120 H OUTPATIENT ANTIDIABETIC REGIMEN: * Metformin 500 mg PO BIDM * HbA1c (11/13/19): 6.8% ASSESSMENT: * BSGs well controlled yesterday - ranging 114-135 mg/dL * Patient received 8 units of insulin - all of which was prandial insulin (no basal or correctional insulin administered) * Continues on vancomycin and cefepime for possible bacterial pneumonia in addition to influenza B infection PLAN FOR INPATIENT GLYCEMIC CONTROL: * Hold outpatient oral diabetes medications * Basal insulin * Continue to hold * Bolus insulin * NovoLog per scale ACHS or Q6hrs while NPO * Goal Range: Low 110 mg/dL - High 140 mg/dL * Correction Factor: 30 mg/dL/unit * Nutritional / Prandial insulin per carb ratio of 1 unit per 10 grams CHO consumed PLAN FOR DISCHARGE: * A1c of 6.9% is at goal for patient (less than 7%) * Reasonable to continue outpatient regimen
[2019-11-13] MEDS: OSELTAMIVIR PHOSPHATE SUSP 30 MG/5 ML UDP PO SCH (10:02)
[2019-11-13] MEDS: CEFEPIME 2,000 MG in SYRINGE 7.5 ML IV SCH ×2 (10:04→21:10)
[2019-11-13] MEDS: INSULIN ASPART 100 UNITS/ML 3 ML PEN SC SCH ×4 (10:16→21:58)
--- NOTE | 2019-11-13 16:27 | Hospitalist Progress Note ---
Date of Service November 13, 2019 Assessment & Plan (1) Influenza B: Shailesh is a 73-year-old male who was admitted on 11/11/19 for Influenza B and superimposed multifocal bacterial PNA. Influenza B Infection with Superimposed bacterial PNA: - Nasal swap + for influenza B on admission (negative for A) - continue Tamiflu 30 mg daily, dose adjusted for renal function - CXR on admission negative for consolidation; Chest CT on 11/12 showed multifocal consolidation indicative of superimposed bacterial PNA - procal elevated to 16.78 on admission; repeat today 18.24 - concern that this rise in pro-anne represents non-treatment of underlying atypical pneumonia; repeat pro-anne in AM - nasal MRSA swab negative - continue IV vancomycin and IV cefepime - continue 1/2 normal saline at 125 cc/hr Acute renal failure: - likely pre-renal in origin from reduction in PO intake prior to admission CT of abdomen 11/11 shows 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 continue IVF for volume replacement renal dosing of tamiflu and antibiotics; hold home losartan Type 2 diabetes, not insulin-dependent: Glucose checks AC/at bedtime Hold home oral anti-glycemic's Insulin sliding scale Hypertension: continue metoprolol tartrate 50 mg p.o. twice daily Hold losartan as above History of TIA: Continue aspirin/Plavix Patient intolerant of statins due to myalgias; on zetia and tricor No focal neuro deficits on exam Hyper triglyceridemia/hyperlipidemia: Continue zetia 10 mg daily Continue TriCor 145 mg daily GERD: Continue home prtonix Diet: Carb consistent DVT prophylaxis: Heparin 5000 sq twice daily Code: Full (2) Acute renal failure: (3) Elevated troponin: (4) TIA (transient ischemic attack): (5) Hypertriglyceridemia: (6) Restless leg syndrome: (7) GERD (gastroesophageal reflux disease): Admission and Anticipated Discharge Date Admission Date: November 11, 2019 Supervising Physician Co-Signing Physician Notes I personally examined the patient and verified all morrison points of history and exam, discussed case, and agree with decision making with Dr Hernandez. Feeling better. Back does hurt and he is a little bit of a odd feeling across the top of his head. Otherwise no new complaints. Still has a cough. Vitals noted, in general he is awake and alert pleasant no distress. HEENT normocephalic atraumatic mucous membranes moist. Breathing is unlabored no accessory muscle use good effort. Skin shows no rashes no pallor or icterus. Influenza complicated by secondary overgrowth pneumoniaclinically appears to be improving on current regimen of Tamiflu vancomycin and cefepime. Procalcitonin slightly higher than before, but there was a time. In between that it may have been worsening and is now on the way back down. Continue to follow. Hopefully with ongoing improvement we can look towards home in the next day or so. PT/OT eval and treat. Acute renal failurerelated to aboveimproving nicely, continue p.o. fluids. Hold losartan for now. DVT prophylaxisambulationheparin subcu was considered, but with his platelets being somewhat low and trending down, would hesitate to add anything that could muddy the clinical picture. His thrombocytopenia is likely nonspecific and related to his infections, versus medication side effect, but will follow. Subjective Patient continues to feel improved on a day to day basis; feels like his body aches and strength have returned slowly as he has increased the amount of food and water that he consumes on a daily basis; early on when he got sick, he started to avoid food as it seemed to upset his stomach and did not improve how he was feeling. When he has eaten throughout the day today, the things that were least bothersome to his throat felt the best for how he was doing overall. Review of Systems Review of Systems: All systems reviewed & are unremarkable except as noted in Subjective Physical Exam Constitutional: WD/WN, vitals as above Eyes: PERRL, conjunctivae normal, anicteric sclerae ENMT: external ear and nose normal, oropharynx normal Respiratory: normal respiratory effort; no respiratory distress and no labored breathing Auscultation: + crackles (RLL); no rales and no wheezes Cardiovascular: Rate/Rhythm: regular rate and regular rhythm Heart Sounds: normal S1 and normal S2; no gallop, no murmur and no cardiac rub Vessels: no JVD Gastrointestinal (Abdomen): normal bowel sounds, soft, nontender, no hepatosplenomegaly Results & Data ([facility]) Vital Signs (Past 12 Hours) Vital Signs Temp Pulse Resp BP BP Pulse Ox 11/13/19 15:27 36.8 C 75 17 163/94 H 96 11/13/19 07:08 36.7 C 84 16 177/84 H 95 11/13/19 05:45 83 192/85 H 197/90 H 11/13/19 05:00 37 C 82 16 171/90 H 178/101 H 96 Laboratory Results 11/13/19 11/13/19 11/13/19 Range/Units 12:15 08:33 07:45 WBC (4.8-10.8) K/uL RBC (4.7-6.1) M/uL Hgb (14.0-18.0) g/dL Hct (42-52) % MCV (80-100) fL MCH (25-34) pg MCHC (32-36) g/dL RDW Std Deviation (36.4-46.3) fL RDW Coeff of Brice (11.5-14.5) % Plt Count (130-400) K/uL MPV (7.4-10.4) fL Immature Gran % (Auto) % Neut % (Auto) % Lymph % (Auto) % [place] % (Auto) % Eos % (Auto) % Baso % (Auto) % Immature Gran # (Auto) (0.00-0.02) K/uL Neut # (Auto) (1.4-6.5) K/uL Lymph # (Auto) (1.2-3.4) K/uL [place] # (Auto) (0.11-0.59) K/uL Eos # (Auto) (0-0.5) K/uL Baso # (Auto) (0-0.2) K/uL Dohle Bodies Platelet Estimate (Normal) Sodium (136-145) mmol/L Potassium (3.5-5.1) mmol/L Chloride (98-107) mmol/L Carbon Dioxide (21-32) mmol/L Anion Gap (3-11) BUN (7-18) mg/dl Creatinine (0.6-1.4) mg/dl Est Cr Clr Drug Dosing ml/min Est GFR ( Amer) Est GFR (Non-Af Amer) BUN/Creatinine Ratio (10-20) Glucose (70-99) mg/dl POC Glucose 127 H 120 H (70-99) mg/dl Estimat Average Glucose mg/dl Hemoglobin A1c (4.5-5.6) % Calcium (8.5-10.1) mg/dl Procalcitonin 18.24 H (0-0.5) ng/ml 11/13/19 11/13/19 11/13/19 Range/Units 05:13 05:13 05:13 WBC 7.79 (4.8-10.8) K/uL RBC 3.81 L (4.7-6.1) M/uL Hgb 11.7 L (14.0-18.0) g/dL Hct 34.0 L (42-52) % MCV 89.2 (80-100) fL MCH 30.7 (25-34) pg MCHC 34.4 (32-36) g/dL RDW Std Deviation 42.2 (36.4-46.3) fL RDW Coeff of Brice 13.0 (11.5-14.5) % Plt Count 98 L (130-400) K/uL MPV 11.4 H (7.4-10.4) fL Immature Gran % (Auto) 0.3 % Neut % (Auto) 86.6 % Lymph % (Auto) 8.2 % [place] % (Auto) 4.9 % Eos % (Auto) 0.0 % Baso % (Auto) 0.0 % Immature Gran # (Auto) 0.02 (0.00-0.02) K/uL Neut # (Auto) 6.75 H (1.4-6.5) K/uL Lymph # (Auto) 0.64 L (1.2-3.4) K/uL [place] # (Auto) 0.38 (0.11-0.59) K/uL Eos # (Auto) 0.00 (0-0.5) K/uL Baso # (Auto) 0.00 (0-0.2) K/uL Dohle Bodies Occasional Platelet Estimate Decreased L (Normal) Sodium 137 (136-145) mmol/L Potassium 3.1 L (3.5-5.1) mmol/L Chloride 107 (98-107) mmol/L Carbon Dioxide 22 (21-32) mmol/L Anion Gap 9.0 (3-11) BUN 20 H (7-18) mg/dl Creatinine 1.90 H (0.6-1.4) mg/dl Est Cr Clr Drug Dosing 33.5 ml/min Est GFR ( Amer) 39.7 Est GFR (Non-Af Amer) 34.2 BUN/Creatinine Ratio 10.4 (10-20) Glucose 105 H (70-99) mg/dl POC Glucose (70-99) mg/dl Estimat Average Glucose 148 mg/dl Hemoglobin A1c 6.8 H (4.5-5.6) % Calcium 8.6 (8.5-10.1) mg/dl Procalcitonin (0-0.5) ng/ml 11/12/19 11/12/19 Range/Units 20:04 16:48 WBC (4.8-10.8) K/uL RBC (4.7-6.1) M/uL Hgb (14.0-18.0) g/dL Hct (42-52) % MCV (80-100) fL MCH (25-34) pg MCHC (32-36) g/dL RDW Std Deviation (36.4-46.3) fL RDW Coeff of Brice (11.5-14.5) % Plt Count (130-400) K/uL MPV (7.4-10.4) fL Immature Gran % (Auto) % Neut % (Auto) % Lymph % (Auto) % [place] % (Auto) % Eos % (Auto) % Baso % (Auto) % Immature Gran # (Auto) (0.00-0.02) K/uL Neut # (Auto) (1.4-6.5) K/uL Lymph # (Auto) (1.2-3.4) K/uL [place] # (Auto) (0.11-0.59) K/uL Eos # (Auto) (0-0.5) K/uL Baso # (Auto) (0-0.2) K/uL Dohle Bodies Platelet Estimate (Normal) Sodium (136-145) mmol/L Potassium (3.5-5.1) mmol/L Chloride (98-107) mmol/L Carbon Dioxide (21-32) mmol/L Anion Gap (3-11) BUN (7-18) mg/dl Creatinine (0.6-1.4) mg/dl Est Cr Clr Drug Dosing ml/min Est GFR ( Amer) Est GFR (Non-Af Amer) BUN/Creatinine Ratio (10-20) Glucose (70-99) mg/dl POC Glucose 114 H 119 H (70-99) mg/dl Estimat Average Glucose mg/dl Hemoglobin A1c (4.5-5.6) % Calcium (8.5-10.1) mg/dl Procalcitonin (0-0.5) ng/ml Medications Administered Current Inpatient Medications Acetaminophen (Tylenol) 650 mg PO Q4H PRN PRN Reason: pain/fever Stop: 12/11/19 23:24 Amitriptyline HCl (Elavil) 10 mg PO HS RUPINDER Stop: 12/12/19 20:59 Last Admin: 11/12/19 20:09 Dose: 10 mg Documented by: Aspirin (Ecotrin Ectab) 81 mg PO DAILY RUPINDER Stop: 12/12/19 08:59 Last Admin: 11/13/19 08:34 Dose: 81 mg Documented by: Clopidogrel Bisulfate (Plavix) 75 mg PO DAILY RUPINDER Stop: 12/12/19 08:59 Last Admin: 11/13/19 08:35 Dose: 75 mg Documented by: Dextrose (Dextrose 50%) 25 - 50 ml IV UD PRN; Protocol PRN Reason: Hypoglycemia Protocol Stop: 12/11/19 23:24 Glucagon (Glucagen) 1 mg SQ UD PRN; Protocol PRN Reason: Hypoglycemia Protocol Stop: 12/11/19 23:24 Glucose (Dex4 Glucose) 4 - 8 tabs PO UD PRN; Protocol PRN Reason: Hypoglycemia Protocol Stop: 12/11/19 23:24 Glucose (Glucose 40%) 15 - 30 gm PO UD PRN; Protocol PRN Reason: Hypoglycemia Protocol Stop: 12/11/19 23:24 Hydralazine HCl (Apresoline) 10 mg PO Q6H PRN PRN Reason: hypertension Stop: 12/13/19 05:44 Last Admin: 11/13/19 05:57 Dose: 10 mg Documented by: Sodium Chloride (1/2 Nss) 1,000 mls @ 125 mls/hr IV .Q8H RUPINDER Stop: 12/12/19 00:00 Last Infusion: 11/13/19 14:29 Dose: 125 mls/hr Documented by: Vancomycin HCl 1,500 mg/ (Sodium Chloride) 530 mls @ 200 mls/hr IV DAILY RUPINDER Stop: 11/20/19 08:59 Last Infusion: 11/13/19 14:19 Dose: Infused Documented by: Cefepime HCl 2,000 mg/ Syringe 20 mls @ 5 mls/min IV Q12H [facility]; Protocol Stop: 11/19/19 21:59 Last Admin: 11/13/19 10:04 Dose: 5 mls/min Documented by: Insulin Aspart (Novolog Flexpen) 0 units SC ACHS RUPINDER Stop: 12/12/19 00:00 Last Admin: 11/13/19 13:19 Dose: 5 units Documented by: Metoprolol Tartrate (Lopressor) 50 mg PO BID RUPINDER Stop: 12/11/19 23:24 Last Admin: 11/13/19 08:34 Dose: 50 mg Documented by: Miscellaneous (Carbohydrates For Hypoglycemia) 15 - 30 gm PO UD PRN PRN Reason: Hypoglycemia Protocol Stop: 12/11/19 23:24 Miscellaneous Information (Consult Glycemic Management Pharmacy) 1 ea N/A UD PRN; Protocol PRN Reason: Consult Stop: 12/11/19 23:58 Miscellaneous Information (Consult) 1 ea N/A UD PRN PRN Reason: Consult Stop: 12/12/19 09:19 Miscellaneous Information (Cefepime Consult Active) 1 ea N/A UD PRN PRN Reason: Consult Stop: 12/12/19 09:21 Multivitamins (Multivitamin Tab) 1 tab PO DAILY RUPINDER Stop: 12/12/19 08:59 Last Admin: 11/13/19 08:35 Dose: 1 tab Documented by: Ondansetron HCl (Zofran) 4 mg IV Q6H PRN PRN Reason: Nausea Stop: 12/11/19 23:24 Oseltamivir Phosphate (Tamiflu) 30 mg PO DAILY [facility]; Protocol Stop: 11/17/19 08:59 Last Admin: 11/13/19 10:02 Dose: 30 mg Documented by: Pantoprazole Sodium (Protonix) 40 mg PO BID [facility] Stop: 12/11/19 23:44 Last Admin: 11/13/19 08:34 Dose: 40 mg Documented by: Ropinirole HCl (Requip) 0.25 mg PO HS [facility] Stop: 12/12/19 20:59 Last Admin: 11/12/19 20:09 Dose: 0.25 mg Documented by: Resident Activity Tracking Resident Involvement: Resident Care Provided Care Provided: Adult Hospital Medicine (1) Acute renal failure Acute renal failure type: unspecified Qualified Code(s): N17.9 - Acute kidney failure, unspecified
--- NOTE | 2019-11-13 18:15 | Billing Data ---
Date of Service November 13, 2019 Coding Level of Care Code 06843 Subseq Hosp Care Lvl 3
[2019-11-13] MEDS ORDERED: HEPARIN SOD 5,000 UNIT/0.5 ML VIAL SQ SCH (21:00)
[2019-11-13] MEDS: ROPINIROLE HCL 0.25 MG TABLET PO SCH (21:10)
[2019-11-13] MEDS: AMITRIPTYLINE HCL 10 MG TAB PO SCH (21:10)
[2019-11-14] MEDS: SODIUM CHLORIDE 0.45 % 1,000 ML IV SCH ×3 (03:44→21:51)
[2019-11-14] MEDS: HydrALAZINE 10 MG TAB PO PRN ×3 (04:04→23:31)
[2019-11-14 07:03] LABS: Hematocrit (blood only) 31.9 % (42-52); Hemoglobin 11.1 g/dL (14.0-18.0); Mean Corpuscular Hemoglobin 30.6 pg (25-34); Mean Corpuscular Hgb Conc 34.8 g/dL (32-36); Mean Corpuscular Volume 87.9 fL (80-100); Mean Platelet Volume 10.9 fL (7.4-10.4); Platelet Count 123 K/uL (130-400); RDW Coefficient of Variation 12.6 % (11.5-14.5); RDW Standard Deviation 40.5 fL (36.4-46.3); Red Blood Count 3.63 M/uL (4.7-6.1)
[2019-11-14 07:30] LABS: Basophils # (auto) 0.01 K/uL (0-0.2); Basophils % (auto) 0.1 %; Eosinophils # (auto) 0.02 K/uL (0-0.5); Eosinophils % (auto) 0.3 %; Est GFR (African American) 40.2; Est GFR (Non-African American) 34.7; Immature Granulocytes # (auto) 0.03 K/uL (0.00-0.02); Immature Granulocytes % (auto) 0.4 %; Lymphocytes # (auto) 0.78 K/uL (1.2-3.4); Lymphocytes % (auto) 9.8 %; Monocytes # (auto) 0.62 K/uL (0.11-0.59); Monocytes % (auto) 7.8 %; Neutrophils # (auto) 6.54 K/uL (1.4-6.5); Neutrophils % (auto) 81.6 %; Potassium 3.1 mmol/L (3.5-5.1)
[2019-11-14 07:31] LABS: BUN Creatinine Ratio 11.1 (10-20); Calcium 8.5 mg/dl (8.5-10.1); Creatinine Clr Calc Pharmacy 33.9 ml/min
[2019-11-14] MEDS ORDERED: POTASSIUM CHLORIDE 20 MEQ TABCR PO STA (07:40)
[2019-11-14] MEDS: CLOPIDOGREL BISULFATE 75 MG TAB PO SCH (08:09)
[2019-11-14] MEDS: PANTOprazole 40 MG TAB PO SCH ×2 (08:09→21:54)
[2019-11-14] MEDS: MULTIVITAMIN TAB PO SCH (08:09)
[2019-11-14] MEDS: OSELTAMIVIR PHOSPHATE SUSP 30 MG/5 ML UDP PO SCH (08:09)
[2019-11-14] MEDS: METOPROLOL TARTRATE 50 MG TAB PO SCH ×2 (08:09→21:53)
[2019-11-14] MEDS: ASPIRIN 81 MG ECTAB PO SCH (08:09)
[2019-11-14] MEDS ORDERED: VANCOMYCIN TROUGH ONE (08:30)
[2019-11-14] MEDS: INSULIN ASPART 100 UNITS/ML 3 ML PEN SC SCH ×4 (09:06→22:49)
[2019-11-14] MEDS: CEFEPIME 2,000 MG in SYRINGE 7.5 ML IV SCH (10:39)
[2019-11-14 12:26] LABS: Appearance Urine Clear (Clear); Bacteria Urine Automated Negative (Negative); Bilirubin Urine Negative (Negative); Blood Urine 2+ (Negative); Cast Urine Automated 0 /lpf (0-5); Color Urine Yellow; Glucose Urine UA Negative (Negative); Ketones Urine Negative (Negative); Leukocyte Esterase Urine Negative (Negative); Nitrite Urine Negative (Negative); Protein Urine 1+ (Negative); RBC Urine Automated 0-4 /hpf (0-4); Specific Gravity Urine 1.013 (1.000-1.030); Urobilinogen Urine Negative (Negative)
--- NOTE | 2019-11-14 15:25 | Hospitalist Progress Note ---
Date of Service November 14, 2019 Assessment & Plan (1) Influenza B: Shailesh is a 73-year-old male who was admitted on 11/11/19 for Influenza B and superimposed multifocal bacterial PNA. Influenza B Infection with Superimposed bacterial PNA: - Nasal swap + for influenza B on admission (negative for A) - continue Tamiflu 30 mg daily, dose adjusted for renal function - CXR on admission negative for consolidation; Chest CT on 11/12 showed multifocal consolidation indicative of superimposed bacterial PNA - procal elevated to 16.78 on admission; repeat today 18.24 - nasal MRSA swab negative - started Cefuroxime 500mg BID - continue 1/2 normal saline at 125 cc/hr Acute renal failure: - Cr improved today to 1.88, but not back to baseline; looks like baseline is about 1.0 - continue IVF for volume replacement Type 2 diabetes, not insulin-dependent: Glucose checks AC/at bedtime Hold home oral anti-glycemic's Insulin sliding scale Hypertension: continue metoprolol tartrate 50 mg p.o. twice daily Hold losartan as above History of TIA: Continue aspirin/Plavix Patient intolerant of statins due to myalgias; on zetia and tricor No focal neuro deficits on exam Hyper triglyceridemia/hyperlipidemia: Continue zetia 10 mg daily Continue TriCor 145 mg daily GERD: Continue home prtonix Diet: Carb consistent DVT prophylaxis: Heparin 5000 sq twice daily Code: Full (2) Acute renal failure: (3) Elevated troponin: (4) TIA (transient ischemic attack): (5) Hypertriglyceridemia: (6) Restless leg syndrome: (7) GERD (gastroesophageal reflux disease): Admission and Anticipated Discharge Date Admission Date: November 11, 2019 Supervising Physician Co-Signing Physician Notes I personally examined the patient and verified all morrison points of history and exam, discussed case, and agree with decision making with Dr Hernandez. feeling ok. ongoing headache. otherwise feeling better. discussed labs/renal fxn and plan - expressed understanding. Vitals noted, in general he is awake and alert pleasant no distress. HEENT normocephalic atraumatic mucous membranes moist. Breathing is unlabored no accessory muscle use good effort. Skin shows no rashes no pallor or icterus. Influenza complicated by secondary overgrowth pneumoniaclinically improving. off vanco. finish tamiflu. cefepime -> transition to PO 3rd gen ceph and follow. Acute renal failurerelated to aboveimprovement plateaued - UA and FeNa most c/w mild degree of ATN, although med related nephritis also possible. either way anticipate improvement w fluids/supportive care/time. off all nephrotoxic meds DVT prophylaxisambulationheparin subcu was considered, but with his platelets being somewhat low and trending down, would hesitate to add anything that could muddy the clinical picture. His thrombocytopenia is likely nonspecific and related to his infections, versus medication side effect, but will follow. did trend up today. Subjective Patient continues to feel improved on a day to day basis; was able to get up and walk around with therapists previously and does not continue to feel weak or need additional help with moving around. [place] considerably better after he was able to clean himself up. Review of Systems Review of Systems: All systems reviewed & are unremarkable except as noted in Subjective Physical Exam Constitutional: WD/WN, vitals as above Eyes: PERRL, conjunctivae normal, anicteric sclerae ENMT: external ear and nose normal, oropharynx normal Respiratory: normal respiratory effort; no respiratory distress and no labored breathing Auscultation: + crackles (RLL); no rales and no wheezes Cardiovascular: Rate/Rhythm: regular rate and regular rhythm Heart Sounds: normal S1 and normal S2; no gallop, no murmur and no cardiac rub Vessels: no JVD Gastrointestinal (Abdomen): normal bowel sounds, soft, nontender, no hepatosplenomegaly Results & Data ([facility]) Vital Signs (Past 12 Hours) Vital Signs Temp Pulse Resp BP Pulse Ox 11/14/19 07:10 37.0 C 77 16 160/78 H 97 Laboratory Results 11/14/19 11/14/19 11/14/19 Range/Units 12:27 12:10 12:10 WBC (4.8-10.8) K/uL RBC (4.7-6.1) M/uL Hgb (14.0-18.0) g/dL Hct (42-52) % MCV (80-100) fL MCH (25-34) pg MCHC (32-36) g/dL RDW Std Deviation (36.4-46.3) fL RDW Coeff of Brice (11.5-14.5) % Plt Count (130-400) K/uL MPV (7.4-10.4) fL Immature Gran % (Auto) % Neut % (Auto) % Lymph % (Auto) % [place] % (Auto) % Eos % (Auto) % Baso % (Auto) % Immature Gran # (Auto) (0.00-0.02) K/uL Neut # (Auto) (1.4-6.5) K/uL Lymph # (Auto) (1.2-3.4) K/uL [place] # (Auto) (0.11-0.59) K/uL Eos # (Auto) (0-0.5) K/uL Baso # (Auto) (0-0.2) K/uL Sodium (136-145) mmol/L Potassium (3.5-5.1) mmol/L Chloride (98-107) mmol/L Carbon Dioxide (21-32) mmol/L Anion Gap (3-11) BUN (7-18) mg/dl Creatinine (0.6-1.4) mg/dl Est Cr Clr Drug Dosing ml/min Est GFR ( Amer) Est GFR (Non-Af Amer) BUN/Creatinine Ratio (10-20) Glucose (70-99) mg/dl POC Glucose 120 H (70-99) mg/dl Calcium (8.5-10.1) mg/dl Procalcitonin (0-0.5) ng/ml Urine Color Yellow Urine Appearance Clear (Clear) Urine pH 6.0 (4.5-7.5) Ur Specific Morris 1.013 (1.000-1.030) Urine Protein 1+ H (Negative) Urine Glucose (UA) Negative (Negative) Urine Ketones Negative (Negative) Urine Blood 2+ H (Negative) Urine Nitrite Negative (Negative) Urine Bilirubin Negative (Negative) Urine Urobilinogen Negative (Negative) Ur Leukocyte Esterase Negative (Negative) Urine WBC (Auto) 1-5 (0-5) /hpf Urine RBC (Auto) 0-4 (0-4) /hpf U Hyaline Cast (Auto) 0 (0-5) /lpf U Epithel Cells (Auto) 5-10 H (0-5) /lpf Urine Bacteria (Auto) Negative (Negative) Ur Random Creatinine mg/dl Ur Random Sodium 70 mmol/L 11/14/19 11/14/19 11/14/19 Range/Units 12:10 08:23 06:53 WBC (4.8-10.8) K/uL RBC (4.7-6.1) M/uL Hgb (14.0-18.0) g/dL Hct (42-52) % MCV (80-100) fL MCH (25-34) pg MCHC (32-36) g/dL RDW Std Deviation (36.4-46.3) fL RDW Coeff of Brice (11.5-14.5) % Plt Count (130-400) K/uL MPV (7.4-10.4) fL Immature Gran % (Auto) % Neut % (Auto) % Lymph % (Auto) % [place] % (Auto) % Eos % (Auto) % Baso % (Auto) % Immature Gran # (Auto) (0.00-0.02) K/uL Neut # (Auto) (1.4-6.5) K/uL Lymph # (Auto) (1.2-3.4) K/uL Florence # (Auto) (0.11-0.59) K/uL Eos # (Auto) (0-0.5) K/uL Baso # (Auto) (0-0.2) K/uL Sodium (136-145) mmol/L Potassium (3.5-5.1) mmol/L Chloride (98-107) mmol/L Carbon Dioxide (21-32) mmol/L Anion Gap (3-11) BUN (7-18) mg/dl Creatinine (0.6-1.4) mg/dl Est Cr Clr Drug Dosing ml/min Est GFR ( Amer) Est GFR (Non-Af Amer) BUN/Creatinine Ratio (10-20) Glucose (70-99) mg/dl POC Glucose 116 H (70-99) mg/dl Calcium (8.5-10.1) mg/dl Procalcitonin 9.14 H (0-0.5) ng/ml Urine Color Urine Appearance (Clear) Urine pH (4.5-7.5) Ur Specific Morris (1.000-1.030) Urine Protein (Negative) Urine Glucose (UA) (Negative) Urine Ketones (Negative) Urine Blood (Negative) Urine Nitrite (Negative) Urine Bilirubin (Negative) Urine Urobilinogen (Negative) Ur Leukocyte Esterase (Negative) Urine WBC (Auto) (0-5) /hpf Urine RBC (Auto) (0-4) /hpf U Hyaline Cast (Auto) (0-5) /lpf U Epithel Cells (Auto) (0-5) /lpf Urine Bacteria (Auto) (Negative) Ur Random Creatinine 60.3 mg/dl Ur Random Sodium mmol/L 11/14/19 11/14/19 11/13/19 Range/Units 06:53 06:53 20:38 WBC 8.00 (4.8-10.8) K/uL RBC 3.63 L (4.7-6.1) M/uL Hgb 11.1 L (14.0-18.0) g/dL Hct 31.9 L (42-52) % MCV 87.9 (80-100) fL MCH 30.6 (25-34) pg MCHC 34.8 (32-36) g/dL RDW Std Deviation 40.5 (36.4-46.3) fL RDW Coeff of Brice 12.6 (11.5-14.5) % Plt Count 123 L (130-400) K/uL MPV 10.9 H (7.4-10.4) fL Immature Gran % (Auto) 0.4 % Neut % (Auto) 81.6 % Lymph % (Auto) 9.8 % [place] % (Auto) 7.8 % Eos % (Auto) 0.3 % Baso % (Auto) 0.1 % Immature Gran # (Auto) 0.03 H (0.00-0.02) K/uL Neut # (Auto) 6.54 H (1.4-6.5) K/uL Lymph # (Auto) 0.78 L (1.2-3.4) K/uL [place] # (Auto) 0.62 H (0.11-0.59) K/uL Eos # (Auto) 0.02 (0-0.5) K/uL Baso # (Auto) 0.01 (0-0.2) K/uL Sodium 139 (136-145) mmol/L Potassium 3.1 L (3.5-5.1) mmol/L Chloride 109 H (98-107) mmol/L Carbon Dioxide 22 (21-32) mmol/L Anion Gap 8.0 (3-11) BUN 21 H (7-18) mg/dl Creatinine 1.88 H (0.6-1.4) mg/dl Est Cr Clr Drug Dosing 33.9 ml/min Est GFR ( Amer) 40.2 Est GFR (Non-Af Amer) 34.7 BUN/Creatinine Ratio 11.1 (10-20) Glucose 109 H (70-99) mg/dl POC Glucose 133 H (70-99) mg/dl Calcium 8.5 (8.5-10.1) mg/dl Procalcitonin (0-0.5) ng/ml Urine Color Urine Appearance (Clear) Urine pH (4.5-7.5) Ur Specific Morris (1.000-1.030) Urine Protein (Negative) Urine Glucose (UA) (Negative) Urine Ketones (Negative) Urine Blood (Negative) Urine Nitrite (Negative) Urine Bilirubin (Negative) Urine Urobilinogen (Negative) Ur Leukocyte Esterase (Negative) Urine WBC (Auto) (0-5) /hpf Urine RBC (Auto) (0-4) /hpf U Hyaline Cast (Auto) (0-5) /lpf U Epithel Cells (Auto) (0-5) /lpf Urine Bacteria (Auto) (Negative) Ur Random Creatinine mg/dl Ur Random Sodium mmol/L 11/13/19 Range/Units 17:01 WBC (4.8-10.8) K/uL RBC (4.7-6.1) M/uL Hgb (14.0-18.0) g/dL Hct (42-52) % MCV (80-100) fL MCH (25-34) pg MCHC (32-36) g/dL RDW Std Deviation (36.4-46.3) fL RDW Coeff of Brice (11.5-14.5) % Plt Count (130-400) K/uL MPV (7.4-10.4) fL Immature Gran % (Auto) % Neut % (Auto) % Lymph % (Auto) % [place] % (Auto) % Eos % (Auto) % Baso % (Auto) % Immature Gran # (Auto) (0.00-0.02) K/uL Neut # (Auto) (1.4-6.5) K/uL Lymph # (Auto) (1.2-3.4) K/uL [place] # (Auto) (0.11-0.59) K/uL Eos # (Auto) (0-0.5) K/uL Baso # (Auto) (0-0.2) K/uL Sodium (136-145) mmol/L Potassium (3.5-5.1) mmol/L Chloride (98-107) mmol/L Carbon Dioxide (21-32) mmol/L Anion Gap (3-11) BUN (7-18) mg/dl Creatinine (0.6-1.4) mg/dl Est Cr Clr Drug Dosing ml/min Est GFR ( Amer) Est GFR (Non-Af Amer) BUN/Creatinine Ratio (10-20) Glucose (70-99) mg/dl POC Glucose 145 H (70-99) mg/dl Calcium (8.5-10.1) mg/dl Procalcitonin (0-0.5) ng/ml Urine Color Urine Appearance (Clear) Urine pH (4.5-7.5) Ur Specific [place] (1.000-1.030) Urine Protein (Negative) Urine Glucose (UA) (Negative) Urine Ketones (Negative) Urine Blood (Negative) Urine Nitrite (Negative) Urine Bilirubin (Negative) Urine Urobilinogen (Negative) Ur Leukocyte Esterase (Negative) Urine WBC (Auto) (0-5) /hpf Urine RBC (Auto) (0-4) /hpf U Hyaline Cast (Auto) (0-5) /lpf U Epithel Cells (Auto) (0-5) /lpf Urine Bacteria (Auto) (Negative) Ur Random Creatinine mg/dl Ur Random Sodium mmol/L Medications Administered Current Inpatient Medications Acetaminophen (Tylenol) 650 mg PO Q4H PRN PRN Reason: pain/fever Stop: 12/11/19 23:24 Amitriptyline HCl (Elavil) 10 mg PO HS REPLACED BY [facility] Stop: 12/12/19 20:59 Last Admin: 11/13/19 21:10 Dose: 10 mg Documented by: Aspirin (Ecotrin Ectab) 81 mg PO DAILY REPLACED BY [facility] Stop: 12/12/19 08:59 Last Admin: 11/14/19 08:09 Dose: 81 mg Documented by: Clopidogrel Bisulfate (Plavix) 75 mg PO DAILY REPLACED BY [facility] Stop: 12/12/19 08:59 Last Admin: 11/14/19 08:09 Dose: 75 mg Documented by: Dextrose (Dextrose 50%) 25 - 50 ml IV UD PRN; Protocol PRN Reason: Hypoglycemia Protocol Stop: 12/11/19 23:24 Glucagon (Glucagen) 1 mg SQ UD PRN; Protocol PRN Reason: Hypoglycemia Protocol Stop: 12/11/19 23:24 Glucose (Dex4 Glucose) 4 - 8 tabs PO UD PRN; Protocol PRN Reason: Hypoglycemia Protocol Stop: 12/11/19 23:24 Glucose (Glucose 40%) 15 - 30 gm PO UD PRN; Protocol PRN Reason: Hypoglycemia Protocol Stop: 12/11/19 23:24 Hydralazine HCl (Apresoline) 10 mg PO Q6H PRN PRN Reason: hypertension Stop: 12/13/19 05:44 Last Admin: 11/14/19 04:04 Dose: 10 mg Documented by: Sodium Chloride (1/2 Nss) 1,000 mls @ 125 mls/hr IV .Q8H RUPINDER Stop: 12/12/19 00:00 Last Admin: 11/14/19 12:48 Dose: 125 mls/hr Documented by: Cefepime HCl 2,000 mg/ Syringe 20 mls @ 5 mls/min IV DAILY@0900 REPLACED BY [facility]; Protocol Stop: 11/19/19 21:59 Insulin Aspart (Novolog Flexpen) 0 units SC ACHS REPLACED BY [facility] Stop: 12/12/19 00:00 Last Admin: 11/14/19 12:53 Dose: 3 units Documented by: Metoprolol Tartrate (Lopressor) 50 mg PO BID REPLACED BY [facility] Stop: 12/11/19 23:24 Last Admin: 11/14/19 08:09 Dose: 50 mg Documented by: Miscellaneous (Carbohydrates For Hypoglycemia) 15 - 30 gm PO UD PRN PRN Reason: Hypoglycemia Protocol Stop: 12/11/19 23:24 Miscellaneous Information (Consult Glycemic Management Pharmacy) 1 ea N/A UD PRN; Protocol PRN Reason: Consult Stop: 12/11/19 23:58 Miscellaneous Information (Cefepime Consult Active) 1 ea N/A UD PRN PRN Reason: Consult Stop: 12/12/19 09:21 Multivitamins (Multivitamin Tab) 1 tab PO DAILY RUPINDER Stop: 12/12/19 08:59 Last Admin: 11/14/19 08:09 Dose: 1 tab Documented by: Ondansetron HCl (Zofran) 4 mg IV Q6H PRN PRN Reason: Nausea Stop: 12/11/19 23:24 Oseltamivir Phosphate (Tamiflu) 30 mg PO DAILY REPLACED BY [facility]; Protocol Stop: 11/17/19 08:59 Last Admin: 11/14/19 08:09 Dose: 30 mg Documented by: Pantoprazole Sodium (Protonix) 40 mg PO BID REPLACED BY [facility] Stop: 12/11/19 23:44 Last Admin: 11/14/19 08:09 Dose: 40 mg Documented by: Ropinirole HCl (Requip) 0.25 mg PO HS REPLACED BY [facility] Stop: 12/12/19 20:59 Last Admin: 11/13/19 21:10 Dose: 0.25 mg Documented by: Resident Activity Tracking Resident Involvement: Resident Care Provided Care Provided: Adult Hospital Medicine (1) Acute renal failure Acute renal failure type: unspecified Qualified Code(s): N17.9 - Acute kidney failure, unspecified
--- NOTE | 2019-11-14 16:50 | Billing Data ---
Date of Service November 14, 2019 Coding Level of Care Code 48110 Subseq Hosp Care Lvl 3
[2019-11-14] MEDS: cefUROXime axetil 500 MG TAB PO SCH (20:20)
[2019-11-14] MEDS: AMITRIPTYLINE HCL 10 MG TAB PO SCH (21:53)
[2019-11-14] MEDS: ROPINIROLE HCL 0.25 MG TABLET PO SCH (21:54)
[2019-11-15] MEDS ORDERED: OLANZAPINE 2.5 MG TAB PO STA (01:20)
[2019-11-15] MEDS: SODIUM CHLORIDE 0.45 % 1,000 ML IV SCH (05:51)
[2019-11-15 08:18] LABS: BUN Creatinine Ratio 11.3 (10-20); Creatinine Clr Calc Pharmacy 35.6 ml/min; Est GFR (African American) 42.6; Est GFR (Non-African American) 36.8; Potassium 3.2 mmol/L (3.5-5.1)
[2019-11-15] MEDS: METOPROLOL TARTRATE 50 MG TAB PO SCH ×2 (08:57→21:31)
[2019-11-15] MEDS: cefUROXime axetil 500 MG TAB PO SCH ×2 (08:58→21:32)
[2019-11-15] MEDS: ASPIRIN 81 MG ECTAB PO SCH (08:58)
[2019-11-15] MEDS: PANTOprazole 40 MG TAB PO SCH ×2 (08:58→21:32)
[2019-11-15] MEDS: MULTIVITAMIN TAB PO SCH (08:59)
[2019-11-15] MEDS: CLOPIDOGREL BISULFATE 75 MG TAB PO SCH (08:59)
[2019-11-15] MEDS ORDERED: CEFEPIME 2,000 MG in SYRINGE 7.5 ML IV SCH (09:00)
[2019-11-15] MEDS: INSULIN ASPART 100 UNITS/ML 3 ML PEN SC SCH ×4 (09:02→21:21)
[2019-11-15] MEDS: OSELTAMIVIR PHOSPHATE SUSP 30 MG/5 ML UDP PO SCH (09:06)
--- NOTE | 2019-11-15 11:15 | Hospitalist Progress Note ---
Date of Service November 15, 2019 Assessment & Plan (1) Influenza B: Shailesh is a 73-year-old male who was admitted on 11/11/19 for Influenza B and superimposed multifocal bacterial PNA. Influenza B Infection with Superimposed bacterial PNA: - Nasal swap + for influenza B on admission (negative for A) - completed Tamiflu 30 mg today - CXR on admission negative for consolidation; Chest CT on 11/12 showed multifocal consolidation indicative of superimposed bacterial PNA - procal elevated to 16.78 on admission; down trending on antibiotics - nasal MRSA swab negative - continue Cefuroxime 500mg BID; started Doxycycline 100mg BID - started normal saline at 100 cc/hr Acute renal failure: - Cr improved today to 1.79, but not back to baseline; looks like baseline is about 1.0 - continue IVF for volume replacement - seems likely this change is due to multi-factorial Acute tubular necrosis Type 2 diabetes, not insulin-dependent: - Glucose checks AC/at bedtime - Hold home oral anti-glycemic's - Insulin sliding scale Hypertension: - continue metoprolol tartrate 50 mg p.o. twice daily - started on Norvasc 5mg Daily History of TIA: - Continue aspirin/Plavix - No focal neuro deficits on exam Hyper triglyceridemia/hyperlipidemia: - Continue zetia 10 mg daily - Continue TriCor 145 mg daily GERD: Continue home prtonix Diet: Carb consistent DVT prophylaxis: Heparin 5000 sq twice daily Code: Full (2) Acute renal failure: (3) Elevated troponin: (4) TIA (transient ischemic attack): (5) Hypertriglyceridemia: (6) Restless leg syndrome: (7) GERD (gastroesophageal reflux disease): Admission and Anticipated Discharge Date Admission Date: November 11, 2019 Supervising Physician Co-Signing Physician Notes Resident Physician Supervision Note: I was present with Dr. Garfield Hernandez during the history and exam. I discussed the case with the resident and agree with the findings and plan as documented in the note. Any exceptions or clarifications are listed here: patient mildly confused during our visit. Knew the day of the week but could not tell me the months backwards. c/o weakness. Appetite fair only. Still w/ cough. exam: gen - weak-appearing but NAD and nontoxic heart - RRR, s1 s2 lungs - rales right base, scattered rales left base, no wheeze, no increased work of breathing abd - soft NT ND BS+ ext - no edema psych - oriented x 2 A/P: 1. fluB infection - resolving; finished tamiflu course. 2. b/l community-acquired pneumonia in setting of #1 - resolving; currently on cephalosporin; would add doxy for atypical coverage 3. acute kidney injury - likely ATN in setting of #1, #2 - improving; BMP am 4. thrombocytopenia - recheck CBC in am; likely viral suppression from #1 5. metabolic encephalopathy - 2nd to #1, #2 - supportive care, serial exams, avoid sedatives and benzos 6. HTN - cont to hold ARB; would use amlodipine in shannan cont PT, OT cleared for home, but ideally someone should stay with him for 5-7 days post=d/c as he recovers from the illness hold off on discharge home today potentially d/c home tomorrow Documented By: Chidi Riddle MD Subjective Patient continues to feel improved on a day to day basis; had some reported confusion early on when waking up with nursing staff this morning. Feels like he has not been able to consistently sleep throughout the night, and isn't sure if that is why he is more "groggy" early in the morning. Conversation with daughter Miriam, he is not usually confused early in the morning but previously when he hasn't slept soundly he would have more "groggy days" where he would do much less outside of the house. Review of Systems Review of Systems: All systems reviewed & are unremarkable except as noted in Subjective Physical Exam Constitutional: WD/WN, vitals as above Eyes: PERRL, conjunctivae normal, anicteric sclerae ENMT: external ear and nose normal, oropharynx normal Respiratory: normal respiratory effort; no respiratory distress and no labored breathing Auscultation: + crackles (RLL); no rales and no wheezes Cardiovascular: Rate/Rhythm: regular rate and regular rhythm Heart Sounds: normal S1 and normal S2; no gallop, no murmur and no cardiac rub Vessels: no JVD Gastrointestinal (Abdomen): normal bowel sounds, soft, nontender, no hepatosplenomegaly Psychiatric: Orientation: alert, oriented to person, oriented to place and cooperative; + not oriented to time Thought Process: + clanging (slowed answers, with long deliberations) Results & Data ([facility]) Vital Signs (Past 12 Hours) Vital Signs Temp Pulse Resp BP Pulse Ox 11/15/19 07:10 36.8 C 68 16 177/87 H 96 11/15/19 01:11 82 183/95 H Laboratory Results 11/15/19 11/15/19 11/15/19 Range/Units 11:56 08:19 07:34 Sodium 139 (136-145) mmol/L Potassium 3.2 L (3.5-5.1) mmol/L Chloride 111 H (98-107) mmol/L Carbon Dioxide 20 L (21-32) mmol/L Anion Gap 9.0 (3-11) BUN 20 H (7-18) mg/dl Creatinine 1.79 H (0.6-1.4) mg/dl Est Cr Clr Drug Dosing 35.6 ml/min Est GFR ( Amer) 42.6 Est GFR (Non-Af Amer) 36.8 BUN/Creatinine Ratio 11.3 (10-20) Glucose 102 H (70-99) mg/dl POC Glucose 181 H 116 H (70-99) mg/dl Calcium 9.0 (8.5-10.1) mg/dl Urine Color Urine Appearance (Clear) Urine pH (4.5-7.5) Ur Specific [place] (1.000-1.030) Urine Protein (Negative) Urine Glucose (UA) (Negative) Urine Ketones (Negative) Urine Blood (Negative) Urine Nitrite (Negative) Urine Bilirubin (Negative) Urine Urobilinogen (Negative) Ur Leukocyte Esterase (Negative) Urine WBC (Auto) (0-5) /hpf Urine RBC (Auto) (0-4) /hpf U Hyaline Cast (Auto) (0-5) /lpf U Epithel Cells (Auto) (0-5) /lpf Urine Bacteria (Auto) (Negative) Ur Random Creatinine mg/dl Ur Random Sodium mmol/L 11/14/19 11/14/19 11/14/19 Range/Units 21:19 17:11 12:27 Sodium (136-145) mmol/L Potassium (3.5-5.1) mmol/L Chloride (98-107) mmol/L Carbon Dioxide (21-32) mmol/L Anion Gap (3-11) BUN (7-18) mg/dl Creatinine (0.6-1.4) mg/dl Est Cr Clr Drug Dosing ml/min Est GFR ( Amer) Est GFR (Non-Af Amer) BUN/Creatinine Ratio (10-20) Glucose (70-99) mg/dl POC Glucose 120 H 112 H 120 H (70-99) mg/dl Calcium (8.5-10.1) mg/dl Urine Color Urine Appearance (Clear) Urine pH (4.5-7.5) Ur Specific [place] (1.000-1.030) Urine Protein (Negative) Urine Glucose (UA) (Negative) Urine Ketones (Negative) Urine Blood (Negative) Urine Nitrite (Negative) Urine Bilirubin (Negative) Urine Urobilinogen (Negative) Ur Leukocyte Esterase (Negative) Urine WBC (Auto) (0-5) /hpf Urine RBC (Auto) (0-4) /hpf U Hyaline Cast (Auto) (0-5) /lpf U Epithel Cells (Auto) (0-5) /lpf Urine Bacteria (Auto) (Negative) Ur Random Creatinine mg/dl Ur Random Sodium mmol/L 11/14/19 11/14/19 11/14/19 Range/Units 12:10 12:10 12:10 Sodium (136-145) mmol/L Potassium (3.5-5.1) mmol/L Chloride (98-107) mmol/L Carbon Dioxide (21-32) mmol/L Anion Gap (3-11) BUN (7-18) mg/dl Creatinine (0.6-1.4) mg/dl Est Cr Clr Drug Dosing ml/min Est GFR ( Amer) Est GFR (Non-Af Amer) BUN/Creatinine Ratio (10-20) Glucose (70-99) mg/dl POC Glucose (70-99) mg/dl Calcium (8.5-10.1) mg/dl Urine Color Yellow Urine Appearance Clear (Clear) Urine pH 6.0 (4.5-7.5) Ur Specific [place] 1.013 (1.000-1.030) Urine Protein 1+ H (Negative) Urine Glucose (UA) Negative (Negative) Urine Ketones Negative (Negative) Urine Blood 2+ H (Negative) Urine Nitrite Negative (Negative) Urine Bilirubin Negative (Negative) Urine Urobilinogen Negative (Negative) Ur Leukocyte Esterase Negative (Negative) Urine WBC (Auto) 1-5 (0-5) /hpf Urine RBC (Auto) 0-4 (0-4) /hpf U Hyaline Cast (Auto) 0 (0-5) /lpf U Epithel Cells (Auto) 5-10 H (0-5) /lpf Urine Bacteria (Auto) Negative (Negative) Ur Random Creatinine 60.3 mg/dl Ur Random Sodium 70 mmol/L Medications Administered Current Inpatient Medications Acetaminophen (Tylenol) 650 mg PO Q4H PRN PRN Reason: pain/fever Stop: 12/11/19 23:24 Amitriptyline HCl (Elavil) 10 mg PO HS [facility] Stop: 12/12/19 20:59 Last Admin: 11/14/19 21:53 Dose: 10 mg Documented by: Amlodipine Besylate (Norvasc) 5 mg PO QAM [facility] Stop: 12/15/19 11:29 Aspirin (Ecotrin Ectab) 81 mg PO DAILY [facility] Stop: 12/12/19 08:59 Last Admin: 11/15/19 08:58 Dose: 81 mg Documented by: Cefuroxime Axetil (Ceftin) 500 mg PO BID [facility]; Protocol Stop: 11/21/19 20:59 Last Admin: 11/15/19 08:58 Dose: 500 mg Documented by: Clopidogrel Bisulfate (Plavix) 75 mg PO DAILY [facility] Stop: 12/12/19 08:59 Last Admin: 11/15/19 08:59 Dose: 75 mg Documented by: Dextrose (Dextrose 50%) 25 - 50 ml IV UD PRN; Protocol PRN Reason: Hypoglycemia Protocol Stop: 12/11/19 23:24 Doxycycline Hyclate (Vibramycin) 100 mg PO BID [facility] Stop: 11/22/19 11:59 Glucagon (Glucagen) 1 mg SQ UD PRN; Protocol PRN Reason: Hypoglycemia Protocol Stop: 12/11/19 23:24 Glucose (Dex4 Glucose) 4 - 8 tabs PO UD PRN; Protocol PRN Reason: Hypoglycemia Protocol Stop: 12/11/19 23:24 Glucose (Glucose 40%) 15 - 30 gm PO UD PRN; Protocol PRN Reason: Hypoglycemia Protocol Stop: 12/11/19 23:24 Hydralazine HCl (Apresoline) 10 mg PO Q6H PRN PRN Reason: hypertension Stop: 12/13/19 05:44 Last Admin: 11/14/19 23:31 Dose: 10 mg Documented by: Sodium Chloride (Nss 1000ml) 1,000 mls @ 100 mls/hr IV .Q10H [facility] Stop: 12/15/19 11:14 Last Admin: 11/15/19 11:53 Dose: 100 mls/hr Documented by: Insulin Aspart (Novolog Flexpen) 0 units SC ACHS [facility] Stop: 12/12/19 00:00 Last Admin: 11/15/19 09:02 Dose: 4 units Documented by: Metoprolol Tartrate (Lopressor) 50 mg PO BID [facility] Stop: 12/11/19 23:24 Last Admin: 11/15/19 08:57 Dose: 50 mg Documented by: Miscellaneous (Carbohydrates For Hypoglycemia) 15 - 30 gm PO UD PRN PRN Reason: Hypoglycemia Protocol Stop: 12/11/19 23:24 Miscellaneous Information (Consult Glycemic Management Pharmacy) 1 ea N/A UD PRN; Protocol PRN Reason: Consult Stop: 12/11/19 23:58 Multivitamins (Multivitamin Tab) 1 tab PO DAILY [facility] Stop: 12/12/19 08:59 Last Admin: 11/15/19 08:59 Dose: 1 tab Documented by: Ondansetron HCl (Zofran) 4 mg IV Q6H PRN PRN Reason: Nausea Stop: 12/11/19 23:24 Oseltamivir Phosphate (Tamiflu) 30 mg PO DAILY [facility]; Protocol Stop: 11/17/19 08:59 Last Admin: 11/15/19 09:06 Dose: 30 mg Documented by: Pantoprazole Sodium (Protonix) 40 mg PO BID [facility] Stop: 12/11/19 23:44 Last Admin: 11/15/19 08:58 Dose: 40 mg Documented by: Ropinirole HCl (Requip) 0.25 mg PO HS [facility] Stop: 12/12/19 20:59 Last Admin: 11/14/19 21:54 Dose: 0.25 mg Documented by: Resident Activity Tracking Resident Involvement: Resident Care Provided Care Provided: Adult Hospital Medicine (1) Acute renal failure Acute renal failure type: unspecified Qualified Code(s): N17.9 - Acute kidney failure, unspecified
[2019-11-15] MEDS ORDERED: POTASSIUM CHLORIDE 20 MEQ TABCR PO STA (11:19)
[2019-11-15] MEDS: SODIUM CHLORIDE 0.9% 1000ML 1,000 ML IV SCH ×2 (11:53→21:31)
[2019-11-15] MEDS: AMLODIPINE BESYLATE 5 MG TAB PO SCH (12:10)
[2019-11-15] MEDS: DOXYCYCLINE HYCLATE 100 MG CAP PO SCH ×2 (12:10→21:32)
--- NOTE | 2019-11-15 12:16 | Pharmacy Report ---
Pharmacy Glycemic Sign Off Nt - Date of Service November 15, 2019 - Assessment & Plan ASSESSMENT: * BSG's ranging 105-145 mg/dL over last 48 hours * No basal insulin needed * No changes to Novolog made * No anticipated changes in stressors * Pharmacy signing off now - OK per Dr. Riddle PLAN FOR INPATIENT GLYCEMIC CONTROL: No changes needed to current regimen. * Continue NovoLog per scale ACHS/Q6hrs while NPO * Goal range = 110-140 mg/dl * CF = 30 mg/dl/unit * CR = 1 unit for ever 10 g CHO consumed * Pharmacy is signing off of glycemic consult and will no longer be making adjustments to inpatient regimen. Please feel free to re-consult if needed. Thank you. DISCHARGE RECOMMENDATIONS: * A1c 6.8 % on 11/13/19 * Resume home metformin, assuming renal function adequate
--- NOTE | 2019-11-15 20:48 | Billing Data ---
Date of Service November 15, 2019 Coding Level of Care Code 44218 Subseq Hosp Care Lvl 3
[2019-11-15] MEDS: AMITRIPTYLINE HCL 10 MG TAB PO SCH (21:32)
[2019-11-15] MEDS: ROPINIROLE HCL 0.25 MG TABLET PO SCH (21:32)
[2019-11-16 06:03] LABS: Basophils # (auto) 0.02 K/uL (0-0.2); Basophils % (auto) 0.3 %; Eosinophils # (auto) 0.13 K/uL (0-0.5); Eosinophils % (auto) 1.8 %; Hematocrit (blood only) 33.5 % (42-52); Hemoglobin 11.3 g/dL (14.0-18.0); Immature Granulocytes # (auto) 0.12 K/uL (0.00-0.02); Immature Granulocytes % (auto) 1.7 %; Lymphocytes # (auto) 0.94 K/uL (1.2-3.4); Lymphocytes % (auto) 13.1 %; Mean Corpuscular Hemoglobin 30.1 pg (25-34); Mean Corpuscular Hgb Conc 33.7 g/dL (32-36); Mean Corpuscular Volume 89.3 fL (80-100); Mean Platelet Volume 11.1 fL (7.4-10.4); Monocytes # (auto) 0.81 K/uL (0.11-0.59); Monocytes % (auto) 11.3 %; Neutrophils # (auto) 5.14 K/uL (1.4-6.5); Neutrophils % (auto) 71.8 %; Platelet Count 178 K/uL (130-400); RDW Coefficient of Variation 12.7 % (11.5-14.5); RDW Standard Deviation 41.2 fL (36.4-46.3); Red Blood Count 3.75 M/uL (4.7-6.1); White Blood Count 7.16 K/uL (4.8-10.8)
[2019-11-16 06:35] LABS: BUN Creatinine Ratio 11.3 (10-20); Creatinine Clr Calc Pharmacy 36.4 ml/min; Est GFR (African American) 43.8; Est GFR (Non-African American) 37.8; Potassium 3.7 mmol/L (3.5-5.1)
[2019-11-16] MEDS: SODIUM CHLORIDE 0.9% 1000ML 1,000 ML IV SCH (07:30)
[2019-11-16] MEDS: ASPIRIN 81 MG ECTAB PO SCH (07:32)
[2019-11-16] MEDS: MULTIVITAMIN TAB PO SCH (07:32)
[2019-11-16] MEDS: METOPROLOL TARTRATE 50 MG TAB PO SCH (07:32)
[2019-11-16] MEDS: CLOPIDOGREL BISULFATE 75 MG TAB PO SCH (07:32)
[2019-11-16] MEDS: AMLODIPINE BESYLATE 5 MG TAB PO SCH (07:32)
[2019-11-16] MEDS: PANTOprazole 40 MG TAB PO SCH (07:33)
[2019-11-16] MEDS: cefUROXime axetil 500 MG TAB PO SCH (07:33)
[2019-11-16] MEDS: DOXYCYCLINE HYCLATE 100 MG CAP PO SCH (07:34)
[2019-11-16] MEDS: OSELTAMIVIR PHOSPHATE SUSP 30 MG/5 ML UDP PO SCH (07:38)
[2019-11-16] MEDS: INSULIN ASPART 100 UNITS/ML 3 ML PEN SC SCH ×2 (08:59→13:32)
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
== END 2019-11-16 17:15 | disposition home or self-care (01) | DRG 193 ==
LOC: ED 18:52 → 2W 22:34 → SUATTDRO 22:34 → 2W 23:04 → 3N 11-13 04:55

== ENCOUNTER 2020-09-23 01:53 | Inpatient (IN) ==
[2020-09-23] MEDS ORDERED: NITROGLYCERIN 2% OINTMENT 30GM TUBE EXT STA (02:08)
--- NOTE | 2020-09-23 02:15 | Emergency Department Note ---
History of Present Illness General Chief complaint: Chest Pain Stated complaint: CHEST PAIN Time Seen by Provider: 09/23/20 02:03 Source: patient Mode of arrival: EMS Limitations: no limitations History of Present Illness Provider complaint: Chest pain Onset (ago): week(s) Location: chest Radiation: non-radiation Severity: moderate Pain Consistency: + intermittent Relieved By: + rest and + other (Nitro) Exacerbated By: + movement Associated symptoms: + denies other symptoms Treatments prior to arrival: other (Nitro) This is a 74-year-old male who presents with worsening chest pain. Patient has been having intermittent chest pain over the last month, initially evaluated by his family doctor as an outpatient with echo which was abnormal which led to a stress test. After he had an abnormal stress test he underwent a cardiac catheterization on 09/18/2020 which showed severe three-vessel disease. The cath note reads that the patient should be referred to a tertiary care facility for CABG. Patient states this had not yet been arranged, and patient has no contact done at [facility] what was suggested he go. Patient states he has been having central and nonradiating chest pain with exertion, that is now getting worse and he had pain at rest this evening also. Patient states following the cardiac catheterization he was given metoprolol to take every night at bedtime, as well as given nitro tablets to use as needed. Patient states throughout the day today he used 5-6 nitro tablets. On EMS arrival, they gave him an additional nitro tablet and 4 ASA 81mg. Patient states if he sits or lays totally still he has no pain or discomfort. Patient denies any accompanying symptoms including shortness of breath, dizziness, diaphoresis, nausea or vomiting. Patient denies any accompanying neck or back pain, abdominal pain, or leg swelling. No recent change in bowel or bladder function, no known sick contacts or exposure to Covid. EMR list patient used to be taking blood thinners, he states he has not taken them in quite some time and does not recall why he was taking them. Patient's medication list also includes Levitra, he states he has not taken this in at least a year. Pt seen during a time of high acuity and national emergency pandemic while wearing PPE. Home Medications Medication Instructions Recorded Confirmed Type aspirin 81 mg PO DAILY 08/08/18 09/23/20 History metformin 500 mg PO BID 08/08/18 09/23/20 History multivitamin 1 tab PO DAILY 08/08/18 09/23/20 History omeprazole 20 mg PO BID 08/08/18 09/23/20 History ropinirole 0.25 mg PO HS #0 tab 08/11/18 09/23/20 Rx ezetimibe 10 mg PO DAILY 11/11/19 09/23/20 History fenofibrate nanocrystallized 145 mg PO DAILY 11/11/19 09/23/20 History [Tricor] vardenafil [Levitra] 20 mg PO UD PRN 11/11/19 09/23/20 History amlodipine 10 mg PO DAILY 09/18/20 09/23/20 History cyclobenzaprine 10 mg PO TID PRN 09/18/20 09/23/20 History fluoxetine 10 mg PO DAILY 09/18/20 09/23/20 History isosorbide mononitrate 30 mg PO DAILY #30 tab 09/18/20 09/23/20 Rx lisinopril 10 mg PO DAILY 09/18/20 09/23/20 History metoprolol succinate [Toprol XL] 25 mg PO DAILY #30 tab 09/18/20 09/23/20 Rx nitroglycerin [Nitrostat] 0.4 mg SUBLINGUAL Q5M PRN 09/18/20 09/23/20 History clopidogrel 75 mg PO DAILY 09/23/20 09/23/20 History Allergies Allergy/AdvReac Type Severity Reaction Status Date / Time atorvastatin Allergy Unknown PER Verified 09/23/20 03:42 [facility] lovastatin Allergy Unknown PER Verified 09/23/20 03:42 [facility] niacin Allergy Unknown PER Verified 09/23/20 03:42 [facility] [id number] Reductase Allergy Unknown PER Verified 09/23/20 03:42 Inhibitor [facility] telithromycin Allergy Unknown PER Verified 09/23/20 03:42 [facility] STERIODS Allergy Unknown . Uncoded 09/23/20 03:42 Past Med/Surg History Medical History GERD (gastroesophageal reflux disease) HTN (hypertension) Hypercholesteremia Mini stroke On Coumadin for atrial fibrillation Presence of arterial stent L leg, unable to relate exact location. 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 and A total of 10 systems reviewed and were otherwise negative Physical Exam Vital Signs Vital Signs - 24 hr 09/23/20 01:53 09/23/20 02:00 09/23/20 02:14 Temperature 37.1 C Temperature Source Oral Pulse Rate 76 73 Respiratory Rate 18 20 Blood Pressure 158/85 H 158/85 H Blood Pressure Mean 109 97 Pulse Oximetry 98 98 Oxygen Delivery Method Room Air Sepsis Recent Fever Within 48 Hours No Sepsis New/Unexplained Change in Mental Status No Sepsis Action Taken by Nursing No Action Required 09/23/20 02:30 09/23/20 03:00 09/23/20 03:30 Temperature Temperature Source Pulse Rate 70 62 60 Respiratory Rate 17 18 21 Blood Pressure 140/69 121/72 140/74 Blood Pressure Mean 86 88 89 Pulse Oximetry 98 97 96 Oxygen Delivery Method Sepsis Recent Fever Within 48 Hours Sepsis New/Unexplained Change in Mental Status Sepsis Action Taken by Nursing 09/23/20 04:00 Temperature Temperature Source Pulse Rate 61 Respiratory Rate 21 Blood Pressure 141/73 H Blood Pressure Mean 105 Pulse Oximetry 98 Oxygen Delivery Method Sepsis Recent Fever Within 48 Hours Sepsis New/Unexplained Change in Mental Status Sepsis Action Taken by Nursing GENERAL: alert, well appearing, well nourished, no distress, non-toxic, tattoos EYE EXAM: normal conjunctiva, PERRL and EOM's grossly intact OROPHARYNX: no exudate, no erythema, lips, buccal mucosa, and tongue normal and mucous membranes are moist NECK: supple, no nuchal rigidity, no adenopathy, non-tender LUNGS: Clear to auscultation. Normal chest wall mechanics, no w/r/r HEART: no murmurs, S1 normal and S2 normal, no reproducible chest wall tenderness ABDOMEN: abdomen soft, non-tender, normo-active bowel sounds, no masses, no rebound or guarding. BACK: Back is symmetrical on inspection and there is no deformity, no midline tenderness, no CVA tenderness. SKIN: no rashes and no bruising UPPER EXTREMITIES: upper extremities are grossly normal. FROM, nml pulses b/l. LOWER EXTREMITIES: No pitting edema. FROM, nml pulses b/l. NEURO EXAM: Normal sensorium, cranial nerves II-XII grossly intact, normal speech, no gross weakness of arms, no gross weakness of legs. Gross sensation intact. Course Course 0220: In review of EMR, patient underwent cardiac cath on 09/18/2020 after patrickin emmanuel a positive stress test. Patient found to have severe three-vessel coronary artery disease, 95% proximal LAD, diffuse mid LAD up to 80%, 90% proximal large OM 2, focal 60 to 70% mid RCA. Normal intracardiac filling pressures. Recommendation was for patient to be referred to cardiac surgery for CABG evaluation. Patient's beta-suyapa was increased in the interim, he was to stop taking Plavix however continue his aspirin and statin. 0320: Pt updated on results. 0340: Discussed with Dr. Lynch. Administered Medications Heparin Sodium/Dextrose (Heparin Sodium/Dextrose) 25,000 units in 500 mls @ 0.02 mls/hr IV .Q24H [facility]; Protocol Stop: 10/23/20 03:14 Last Admin: 09/23/20 03:31 Dose: 850 units/hr, 17 mls/hr Documented by: [id number] Cosigned by: [id number] Discontinued Medications Heparin Sodium/Dextrose (Heparin Iv Low Dose *No* Bolus) 1 ea N/A ONE ONE; Protocol Stop: 09/23/20 03:08 Last Admin: 09/23/20 03:31 Dose: Not Given Documented by: [id number] Nitroglycerin (Nitroglycerin 2% Ointment 30gm Tube) 1 inch EXT NOW STA Stop: 09/23/20 02:09 Last Admin: 09/23/20 02:11 Dose: 1 inch Documented by: [id number] Critical Care Time Critical Care Time: Yes Total Critical Care Time: 39 Critical care of 39 min performed to assess and manage high likelihood of life-threatening ACS, involving labs and imaging performed with assessment to evaluate ACS diagnosis with frequent reassessment. This time includes bedside time, treatment discussions with patient/family/consultants, documentation time and excludes procedure time. Medical Decision Making Differential Diagnosis Differential diagnoses includes but is not limited to acute coronary syndrome, myocardial infarction, pericarditis, pulmonary embolus, aortic dissection, pneumonia, pneumothorax, musculoskeletal, shingles, esophageal. Medical Records Attestation: I reviewed the patient's medical records. Home Medications Current Medication List: was personally reviewed by me Laboratory Data Attestation: I reviewed the patient's lab results. Result diagrams: 09/23/20 02:06 09/23/20 02:06 Lab Results 09/23/20 09/23/20 09/23/20 Range/Units 02:06 02:06 02:06 WBC 9.06 (4.8-10.8) K/uL RBC 4.19 L (4.7-6.1) M/uL Hgb 12.7 L (14.0-18.0) g/dL Hct 36.7 L (42-52) % MCV 87.6 (80-100) fL MCH 30.3 (25-34) pg MCHC 34.6 (32-36) g/dL RDW Std Deviation 41.5 (36.4-46.3) fL RDW Coeff of Brice 12.8 (11.5-14.5) % Plt Count 222 (130-400) K/uL MPV 11.3 H (7.4-10.4) fL Immature Gran % (Auto) 0.3 % Neut % (Auto) 67.7 % Lymph % (Auto) 22.8 % Peach % (Auto) 6.8 % Eos % (Auto) 1.8 % Baso % (Auto) 0.6 % Neut # (Auto) 6.13 (1.4-6.5) K/uL Lymph # (Auto) 2.07 (1.2-3.4) K/uL [place]ach # (Auto) 0.62 H (0.11-0.59) K/uL Eos # (Auto) 0.16 (0-0.5) K/uL Baso # (Auto) 0.05 (0-0.2) K/uL Immature Gran # (Auto) 0.03 H (0.00-0.02) K/uL PT 11.0 (9.0-12.0) Seconds INR 1.0 (0.9-1.1) APTT (21.0-31.0) Seconds PTT Ratio Sodium 140 (136-145) mmol/L Potassium 3.4 L (3.5-5.1) mmol/L Chloride 109 H (98-107) mmol/L Carbon Dioxide 23 (21-32) mmol/L Anion Gap 8.0 (3-11) BUN 19 H (7-18) mg/dl Creatinine 1.80 H (0.6-1.4) mg/dl Est Cr Clr Drug Dosing 36.5 ml/min Est GFR ( Amer) 42.0 Est GFR (Non-Af Amer) 36.3 BUN/Creatinine Ratio 10.5 (10-20) Glucose 133 H (70-99) mg/dl Calcium 8.5 (8.5-10.1) mg/dl Magnesium 2.1 (1.8-2.4) mg/dl Total Bilirubin 0.4 (0.2-1) mg/dl AST 22 (15-37) U/L ALT 29 (12-78) U/L Alkaline Phosphatase 65 (45-117) U/L Troponin I < 0.015 (0-0.045) ng/ml NT-Pro-B Natriuret Pep 167 (0-900) pg/ml Total Protein 7.1 (6.4-8.2) gm/dl Albumin 3.7 (3.4-5.0) gm/dl Globulin 3.4 (2.5-4.0) gm/dl Albumin/Globulin Ratio 1.1 (0.9-2) Lipase 326 (73-393) U/L SARS-CoV-2 Ag (Rapid) (Negative) 09/23/20 09/23/20 Range/Units 02:06 03:48 WBC (4.8-10.8) K/uL RBC (4.7-6.1) M/uL Hgb (14.0-18.0) g/dL Hct (42-52) % MCV (80-100) fL MCH (25-34) pg MCHC (32-36) g/dL RDW Std Deviation (36.4-46.3) fL RDW Coeff of Brice (11.5-14.5) % Plt Count (130-400) K/uL MPV (7.4-10.4) fL Immature Gran % (Auto) % Neut % (Auto) % Lymph % (Auto) % [place] % (Auto) % Eos % (Auto) % Baso % (Auto) % Neut # (Auto) (1.4-6.5) K/uL Lymph # (Auto) (1.2-3.4) K/uL [place] # (Auto) (0.11-0.59) K/uL Eos # (Auto) (0-0.5) K/uL Baso # (Auto) (0-0.2) K/uL Immature Gran # (Auto) (0.00-0.02) K/uL PT (9.0-12.0) Seconds INR (0.9-1.1) APTT 28.6 (21.0-31.0) Seconds PTT Ratio 1.0 Sodium (136-145) mmol/L Potassium (3.5-5.1) mmol/L Chloride (98-107) mmol/L Carbon Dioxide (21-32) mmol/L Anion Gap (3-11) BUN (7-18) mg/dl Creatinine (0.6-1.4) mg/dl Est Cr Clr Drug Dosing ml/min Est GFR ( Amer) Est GFR (Non-Af Amer) BUN/Creatinine Ratio (10-20) Glucose (70-99) mg/dl Calcium (8.5-10.1) mg/dl Magnesium (1.8-2.4) mg/dl Total Bilirubin (0.2-1) mg/dl AST (15-37) U/L ALT (12-78) U/L Alkaline Phosphatase (45-117) U/L Troponin I (0-0.045) ng/ml NT-Pro-B Natriuret Pep (0-900) pg/ml Total Protein (6.4-8.2) gm/dl Albumin (3.4-5.0) gm/dl Globulin (2.5-4.0) gm/dl Albumin/Globulin Ratio (0.9-2) Lipase (73-393) U/L SARS-CoV-2 Ag (Rapid) Negative (Negative) Imaging Data My Impression: X-ray: I interpreted the following studies. Chest: A single view study of the chest was reviewed and was negative for cardiomegaly, focal infiltrate, effusion, pulmonary edema, or wide mediastinum. ECG Data Attestation: I personally reviewed and interpreted this ECG as follows: Indication: + chest pain Rate (beats per minute): 61 Rhythm: + normal sinus ECG Intervals/blocks: + Normal QRS and + Normal QT ECG [place]: + Normal ECG ST segments: + Normal ST segments Blood Pressure Blood Pressure Findings: Elevated blood pressure Blood Pressure Disposition: further management by hospitalist DAYANA King This is a 74-year-old male with a recent outpatient evaluation of chest pain resulting in a cardiac catheterization several days ago. Patient was found to have significant three-vessel disease, however was sent home with metoprolol and nitro, and told to call to [facility] this coming week to try and arrange evaluation for possible CABG. Patient states in the interim he has been taking nitro tablets daily, has pain with any movement or exertion, and tonight rolled over in bed and developed pain again also which prompted him to call 911. By the time he arrived in the emergency room, patient was pain-free after receiving aspirin and nitro from EMS. Patient's EKG did not reveal any acute or concerning changes. Chest x-ray performed, labs drawn and sent. I did review EMR including the patient's recent cardiac cath. Patient is not currently scheduled for any evaluation at a tertiary care facility for CABG. It is unclear why this did not take place after the abnormal cardiac cath. Patient hemodynamically stable here. Nitropaste added as a precaution although patient without pain, patient started on a heparin drip, and hospitalist contacted. Patient's troponin negative, a second EKG was performed and also negative. Case discussed with hospitalist here in order to monitor patient's symptoms and kush l signs given he has high risk for dysrhythmia, acute PR, and other complications, in the hopes that cardiology can help arrange evaluation for CABG at a tertiary care facility and likely eventual transfer. At this time I do not suspect occult infectious etiology including pneumonia, pericarditis/m yocarditis, pericardial effusion. I do not suspect PE, dissection, ascending aneurysm, hypertensive emergency. Given patient's recent evaluation and description of symptoms I am concerned he is transitioning from a stable angina to an unstable angina. An order was placed for continuous cardiac monitoring. The monitor shows a rate of 64_ with _normal sinus_ rhythm. Impression & Plan Chest pain, Unstable angina pectoris, CAD (coronary artery disease) Discharge Plan Visit Data Chief Complaint: Chest Pain Stated Complaint: CHEST PAIN ED Provider: Rosmery Celis Discharge Problem: Chest pain, Unstable angina pectoris, CAD (coronary artery disease) Forms Stand Alone Forms: [facility] [place] 1d4 Pty Prescriptions Prescriptions: No Action cyclobenzaprine 10 mg Tablet 10 mg PO TID PRN (Reason: Restless Leg(S)) RF: 0 amlodipine 10 mg Tablet 10 mg PO DAILY RF: 0 lisinopril 10 mg Tablet 10 mg PO DAILY RF: 0 fluoxetine 10 mg Capsule 10 mg PO DAILY RF: 0 nitroglycerin [Nitrostat] 0.4 mg Tablet, Sublingual 0.4 mg sublingual Q5M PRN (Reason: Chest Pain) RF: 0 isosorbide mononitrate 30 mg tablet extended release 24 hr 30 mg PO DAILY Qty: 30 RF: 0 metoprolol succinate [Toprol XL] 25 mg tablet extended release 24 hr 25 mg PO DAILY Qty: 30 RF: 1 multivitamin Tablet 1 tab PO DAILY RF: 0 metformin 500 mg tablet 500 mg PO BID RF: 0 aspirin 81 mg Tablet,Delayed Release (Dr/Ec) 81 mg PO DAILY RF: 0 omeprazole 20 mg capsule,delayed release(DR/EC) 20 mg PO BID RF: 0 ropinirole 0.25 mg tablet 0.25 mg PO HS Qty: 0 RF: 0 ezetimibe 10 mg tablet 10 mg PO DAILY RF: 0 vardenafil [Levitra] 20 mg tablet 20 mg PO UD PRN (Reason: ..) RF: 0 fenofibrate nanocrystallized [Tricor] 145 mg tablet 145 mg PO DAILY RF: 0 clopidogrel 75 mg tablet 75 mg PO DAILY RF: 0 Discharge Problem: Chest pain Qualifiers: Chest pain type: chest pain due to myocardial ischemia Ischemic chest pain type: unstable angina pectoris Qualified Code(s): I20.0 - Unstable angina CAD (coronary artery disease) Qualifiers: Coronary Disease-Associated Artery/Lesion type: [place] artery [place] vs. transplanted heart: [place] heart Associated angina: with unstable angina Qualified Code(s): I25.110 - Atherosclerotic heart disease of [place] coronary artery with unstable angina pectoris
[2020-09-23 02:21] LABS: Basophils # (auto) 0.05 K/uL (0-0.2); Basophils % (auto) 0.6 %; Eosinophils # (auto) 0.16 K/uL (0-0.5); Eosinophils % (auto) 1.8 %; Hematocrit (blood only) 36.7 % (42-52); Hemoglobin 12.7 g/dL (14.0-18.0); Immature Granulocytes # (auto) 0.03 K/uL (0.00-0.02); Immature Granulocytes % (auto) 0.3 %; Lymphocytes # (auto) 2.07 K/uL (1.2-3.4); Lymphocytes % (auto) 22.8 %; Mean Corpuscular Hemoglobin 30.3 pg (25-34); Mean Corpuscular Hgb Conc 34.6 g/dL (32-36); Mean Corpuscular Volume 87.6 fL (80-100); Mean Platelet Volume 11.3 fL (7.4-10.4); Monocytes # (auto) 0.62 K/uL (0.11-0.59); Monocytes % (auto) 6.8 %; Neutrophils # (auto) 6.13 K/uL (1.4-6.5); Neutrophils % (auto) 67.7 %; Platelet Count 222 K/uL (130-400); RDW Coefficient of Variation 12.8 % (11.5-14.5); RDW Standard Deviation 41.5 fL (36.4-46.3); Red Blood Count 4.19 M/uL (4.7-6.1); White Blood Count 9.06 K/uL (4.8-10.8)
[2020-09-23 02:37] LABS: Alanine Aminotransferase 29 U/L (12-78); Albumin Level 3.7 gm/dl (3.4-5.0); Aspartate Aminotransferase 22 U/L (15-37); BUN Creatinine Ratio 10.5 (10-20); Blood Urea Nitrogen 19 mg/dl (7-18); Calcium 8.5 mg/dl (8.5-10.1); Carbon Dioxide 23 mmol/L (21-32); Chloride 109 mmol/L (98-107); Creatinine Clr Calc Pharmacy 36.5 ml/min; Est GFR (Non-African American) 36.3; Glucose 133 mg/dl (70-99); Lipase 326 U/L (73-393); Magnesium 2.1 mg/dl (1.8-2.4); Potassium 3.4 mmol/L (3.5-5.1); Sodium 140 mmol/L (136-145)
[2020-09-23 02:43] LABS: Albumin Globulin Ratio 1.1 (0.9-2); Alkaline Phosphatase 65 U/L (45-117); Bilirubin,Total 0.4 mg/dl (0.2-1); Globulin 3.4 gm/dl (2.5-4.0); NT Pro B Type Natriuretic Pept 167 pg/ml (0-900); Total Protein 7.1 gm/dl (6.4-8.2); Troponin I < 0.015 ng/ml (0-0.045)
[2020-09-23] MEDS ORDERED: Heparin IV Low Dose *NO* Bolus ONE (03:07)
[2020-09-23] MEDS: HEPARIN SODIUM/DEXTROSE 25,000 UNITS/500 ML BAG IV SCH (03:31)
[2020-09-23 03:41] LABS: Partial Thromboplastin Time 28.6 Seconds (21.0-31.0)
--- NOTE | 2020-09-23 04:34 | History & Physical Report ---
Date of Service September 23, 2020 Assessment & Plan (1) Unstable angina pectoris: Shailesh Antonio is a 74 year old man with a past medical history significant for DMII, HTN, HLD, PAD and newly discovered CAD who presents with new unstable angina Unstable Angina Patient presents with sensation of severe central chest pain identical to his previous exertional chest pain relieved by nitroglycerin No ecg changes, troponin levels negative in ED labwork and vitals otherwise unremarkable. Patient with known three vessel disease, anticipate patient will need to be transferred to tertiary care center for CABG Heparin drip started, continuing asa, ramesh inhibitor, and beta suyapa, holding clopidogrel for possible imminent procedure Nitro for chest pain, morphine for severe chest pain, will get ECG with any new chest pain as unstable angina with dynamic ECG changes or positive troponin would prompt more urgent management. HLD Statin intolerance continuing home fibrate and ezetimibe HTN Continuing home amlodipine lisinopril and metoprolol DVT PPx: Heparin drip F/E/N: NPO for possible emergent management of patients chest pain Dispo: Admit for further evaluation of chest pain and will contact cardiology emergently with any ECG changes or troponin elevation and possible transfer to tertiary care facility for CABG Full Code (2) CAD (coronary artery disease): (3) Abnormal stress test: (4) Chest pain: History of Present Illness Chief Complaint: Chest pain at rest Primary Care Provider: Alejandrina Brooks DO By CMS guidelines, a determination that the admission or continued stay is not medically necessary has been made by a member of the UR committee and a physician for this hospital stay, therefore a Code 44 will be completed and the Inpatient admission will be changed to outpatient. Shailesh Antonio is a 71 year old man with a past medical history significant for HTN, HLD, DMII, TIA, peripheral arterial disease (s/p stenting of mid popliteal artery [place] [address] Conti), and newly discovered CAD (Three vessel disease discovered after outpatient catheterization following abnormal echocardiogram ordered by primary care provider for worsening anginal chest pain with exertion). Patient has been having chest pain for some time with exertion, this year he finds he is able to do much less than ever before. He tried to mow his lawn in the fall and could not do it due to crushing substernal chest pain. His primary care provider ordered an echocardiogram which showed left ventricular wall motion abnormality in distribution of LAD. At that time he had never had any resting symptoms. Cardiac catheterization at [facility] on 09/18 showing severe three vessel disease 95% proximal LAD stenosis diffuse mid LAD up to 80%, 90% large OM2 and focal 60-70% mid RCA. Patient was to have elective CABG at [facility] but they have not been able to schedule an appointment for any elective procedures yet. After the catheterization patient was given metoprolol to take nightly and nitroglycerin tablets to take with chest pain. Today he has required about 6 nitro tablets and tonight he started to have symptoms at rest. He describes the pain as a sharp pressure in the center of his chest. He feels this is identical to his usual symptoms when he is exerting himself. He dialed 911 and when paramedics arrived they gave him ASA 324 mg and 1 more nitro, on arrival to ED he was pain free if he stayed completely still, ECG was negative troponins were negative vitals WNL. call out operator cardiollogist was contacted who recommended starting patient on heparin and admitting to our hospital. At time of my visit patient did begin experiencing chest pain just with conversation with me and I obtained a repeat ECG that was negative. He denies shortness of breath, nausea, vomiting, sweating, syncope or pre syncope, or radiation of his pain. He denies any other symptoms on full review of systems. He is a former cigar smoker and does not drink alcohol except on very rare occasions and denies drug use. Allergies Allergy/AdvReac Type Severity Reaction Status Date / Time atorvastatin Allergy Unknown PER Verified 09/23/20 03:42 [facility] lovastatin Allergy Unknown PER Verified 09/23/20 03:42 [facility] niacin Allergy Unknown PER Verified 09/23/20 03:42 [facility] Nwsgnzj-[id number]-Ibf Reductase Allergy Unknown PER Verified 09/23/20 03:42 Inhibitor [facility] telithromycin Allergy Unknown PER Verified 09/23/20 03:42 [facility] STERIODS Allergy Unknown . Uncoded 09/23/20 03:42 Home Medications Medication Instructions Recorded Confirmed Type aspirin 81 mg PO DAILY 08/08/18 09/23/20 History multivitamin 1 tab PO DAILY 08/08/18 09/23/20 History omeprazole 20 mg PO BID 08/08/18 09/23/20 History ropinirole 0.25 mg PO HS #0 tab 08/11/18 09/23/20 Rx ezetimibe 10 mg PO DAILY 11/11/19 09/23/20 History fenofibrate nanocrystallized 145 mg PO DAILY 11/11/19 09/23/20 History [Tricor] amlodipine 10 mg PO DAILY 09/18/20 09/23/20 History fluoxetine 10 mg PO DAILY 09/18/20 09/23/20 History isosorbide mononitrate 30 mg PO DAILY #30 tab 09/18/20 09/23/20 Rx lisinopril 10 mg PO DAILY 09/18/20 09/23/20 History metoprolol succinate [Toprol XL] 25 mg PO DAILY #30 tab 09/18/20 09/23/20 Rx nitroglycerin [Nitrostat] 0.4 mg SUBLINGUAL Q5M PRN 09/18/20 09/23/20 History Past Med/Surg History Medical History GERD (gastroesophageal reflux disease) HTN (hypertension) Hypercholesteremia Mini stroke On Coumadin for atrial fibrillation Presence of arterial stent L leg, unable to relate exact location. TIA (transient ischemic attack) Type II diabetes mellitus Surgical History H/O knee surgery stent behind left knee 2017 H/O vasectomy Hx of colonoscopy 2017 No significant past surgical history Family History Grandfather Colorectal cancer Mother Diabetes Hypertension Brother Stroke Social History Smoking Status: Never smoker Hx Alcohol Use: No Hx Substance Use: No Preferred Language: Samoan Communication Ability: Effective [employer] Supervisor Required: No Beliefs That Will Affect Care: None Current Living Situation: Alone current occupational status: retired Feels Safe at Home: Yes Assistive Devices: Glasses Review of Systems Review of Systems: All systems reviewed & are unremarkable except as noted in HPI & below Physical Exam Physical Exam: Constitutional: Patient appears clearly uncomfortable and has hand over center of his chest, he is able to converse with me but grimaces from time to time. Eyes: PERRLA, EOMMI bilaterally Respiratory: Lung sounds vesicular to auscultation bilaterally, no increased work of breathing Cardiovascular: Heart sounds dual, no murmurs rubs skips or gallops, No lower limb edema, pulses strong and equal bilaterally GI: Abdomen soft non tender, no pulsatile mass appreciated MSK: NAD Neuro: No focal deficits appreciated Results & Data Results & Data ([facility]) Vital Signs (Past 12 Hours) Vital Signs Temp Pulse Resp BP Pulse Ox 09/23/20 04:00 61 21 141/73 H 98 09/23/20 03:30 60 21 140/74 96 09/23/20 03:00 62 18 121/72 97 09/23/20 02:30 70 17 140/69 98 09/23/20 02:00 73 20 158/85 H 98 09/23/20 01:53 37.1 C 76 18 158/85 H 98 Supervising Physician Co-Signing Physician Notes Attending addendum: I have physically seen this patient, have supervised the medical residents activities, and agree with the H&P unless as otherwise noted. Assessment and Plan: Unstable angina/severe three-vessel CAD/hypertension- Nitropaste 1 inch anterior chest wall every 6 hours Continue amlodipine, lisinopril and metoprolol Aspirin 81 mg every morning Continue heparin drip begun in the ED Clopidogrel on hold since cardiac catheterization in anticipation of CABG. Unable to take high-dose statin due to intolerance Daytime team to work on transfer to tertiary care center for CABG Consult cardiology Hyperlipidemia- Continue fenofibrate and Zetia Remainder of orders and notations as noted Resident Activity Tracking Resident Involvement: Resident Care Provided Care Provided: Adult Hospital Medicine (1) CAD (coronary artery disease) Associated angina: with unstable angina Coronary Disease-Associated Artery/Lesion type: [place] artery [place] vs. transplanted heart: [place] heart Qualified Code(s): I25.110 - Atherosclerotic heart disease of [place] coronary artery with unstable angina pectoris (2) Chest pain Chest pain type: chest pain due to myocardial ischemia Ischemic chest pain type: unstable angina pectoris Qualified Code(s): I20.0 - Unstable angina
[2020-09-23] MEDS ORDERED: CARBOHYDRATES FOR HYPOGLYCEMIA PO PRN (05:43)
[2020-09-23] MEDS ORDERED: DEXTROSE 50% 50 ML SYRINGE IV PRN (05:43)
[2020-09-23] MEDS ORDERED: MoRPHine SULFATE 2 MG/ML CARP IV PRN (05:43)
[2020-09-23] MEDS ORDERED: GLUCAGON FOR INJ 1 MG VIAL SQ PRN (05:43)
[2020-09-23] MEDS ORDERED: POLYETHYLENE (MIRALAX) 17 GM PACK PO PRN (05:43)
[2020-09-23] MEDS ORDERED: ACETAMINOPHEN 325 MG TAB PO PRN (05:43)
[2020-09-23] MEDS ORDERED: GLUCOSE 40% GEL 15 GM TUBE PO PRN (05:43)
[2020-09-23] MEDS ORDERED: NITROGLYCERIN SL 0.4 MG/TAB TAB SL PRN (05:43)
[2020-09-23] MEDS ORDERED: ONDANSETRON INJ 2 MG/ML 2 ML VIAL IV PRN (05:43)
[2020-09-23] MEDS ORDERED: GLUCOSE 10 TABS/TUBE PO PRN (05:43)
[2020-09-23] MEDS ORDERED: DC ALL PREVIOUSLY ORDERED DIABETES MEDS ONE (05:43)
[2020-09-23] MEDS ORDERED: Nursing to Pharmacy Communication SCH ×2 (06:00→23:30)
[2020-09-23] MEDS ORDERED: CYCLOBENZAPRINE HCL 10 MG TAB PO PRN (06:03)
[2020-09-23] MEDS: INSULIN ASPART 100 UNITS/ML 3 ML PEN SC SCH ×4 (06:10→23:17)
[2020-09-23] MEDS: PANTOprazole 40 MG TAB PO SCH ×2 (07:51→20:40)
[2020-09-23] MEDS: amLODIPine BESYLATE 5 MG TAB PO SCH (07:51)
[2020-09-23] MEDS: FENOFIBRATE NANOCRYSTALLIZED 145 MG TABLET PO SCH (07:52)
[2020-09-23] MEDS: MULTIVITAMIN TAB PO SCH (07:52)
[2020-09-23] MEDS: METOPROLOL SUCC 25MG EXT REL TAB PO SCH (07:52)
[2020-09-23] MEDS: EZETIMIBE 10 MG TABLET PO SCH (07:52)
[2020-09-23] MEDS: lisinopril 10 MG TAB PO SCH (07:52)
[2020-09-23] MEDS: ISOSORBIDE MONO EXTENDED REL 30 MG TABCR PO SCH (07:52)
[2020-09-23] MEDS: FLUoxetine HCL 10 MG CAP PO SCH (07:52)
[2020-09-23] MEDS: ASPIRIN 81 MG ECTAB PO SCH (07:52)
--- NOTE | 2020-09-23 08:06 | XRay Report ---
XR chest 1V portable CLINICAL HISTORY: Atypical chest pain COMPARISON STUDY: No previous studies for comparison. FINDINGS: The cardiac and mediastinal contours are normal. There is no evidence of focal pulmonary co nsolidation. There is no evidence of failure. No pleural effusions are visualized.[There is a left up per lung zone calcified granuloma. IMPRESSION: No active disease in the chest. ACT 112: Negative or not required by law. Electronically signed by: Gordo Green M.D. 09/23/2020 8:04 AM
--- NOTE | 2020-09-23 08:41 | Hospitalist Progress Note ---
Date of Service September 23, 2020 Assessment & Plan (1) Unstable angina pectoris: Shailesh Antonio is a 74 year old man with a past medical history significant for DMII, HTN, HLD, PAD and newly discovered CAD who presents with unstable angina Patient left heart cath September 18 which showed 95% LAD with a large 80% lesion but distal vasculature was stenosis free. Percent obtuse marginal 2 and a 70% RCA with preserved EF. Recommendation is to transfer to [facility] for revascularization were made by Dr. Agudelo. However at the time the patient states he wanted to go home and try to wait till after the holidays but since he got home he has had almost daily anginal symptoms which are debilitating for him Heparin drip continues, continuing asa, ramesh inhibitor, and beta suyapa, holding clopidogrel for possible imminent procedure Nitro for chest pain, morphine for severe chest pain, elevation in troponin as of this time HLD Statin intolerance continuing home fibrate and ezetimibe HTN Continuing home amlodipine lisinopril and metoprolol Accepting physician at [facility] is Dr. Zamudio, will await for bed availability and transfer via ambulance Full Code (2) CAD (coronary artery disease): (3) Abnormal stress test: (4) Chest pain: Admission and Anticipated Discharge Date Admission Date: September 23, 2020 Subjective Patient an episode of chest discomfort in the a.m. relieved by morphine. He continues on heparin and Nitropaste. He is known have three-vessel coronary disease after a left heart cath September 18. I did personally speak to [facility] and received accepting physician Dr. Zamudio for consideration of revascularization currently we are awaiting bed availability Review of Systems Review of Systems: Mild distress and fatigue no headache, blurry or double vision no speech or swallowing issues no chest pain, pressure or palpitations no shortness of breath, cough or wheezes no abdominal pain, nausea or vomiting, diarrhea or constipation no dysuria, hematuria or frequency no focal joint pain or swelling no back pain, CVA tenderness or radicular pain no bruising, bleeding or rashes no focal signs of weakness or numbness or altered sensation no complaints of anxiety or depression.. Physical Exam Physical Exam: The patient appeared well nourished and normally developed. Vital signs as documented. Head exam is normocephalic atraumatic no scleral icterus Neck is without JVD, thyromegaly, or carotid bruits. Lungs are clear to auscultation, no focal loss of breath sounds Cardiac exam, Rhythm is regular.. No murmurs, rubs or gallops. Abdominal exam reveals normal bowel sounds, soft non tender, no masses Extremities are nonedematous and both pedal pulses are present Neurologic exam is alert and oriented, no focal loss of strength or sensation Skin is without bruises or rashes Psychologically is without concerns for anxiety or depression. Results & Data Results & Data ([facility]) Vital Signs (Past 12 Hours) Vital Signs Temp Pulse Pulse Pulse Resp BP BP 09/23/20 06:49 98.1 F 70 19 112/51 L 09/23/20 05:30 97.9 F 60 20 157/76 H 09/23/20 05:00 63 21 135/73 09/23/20 04:30 59 L 18 134/77 09/23/20 04:00 61 21 141/73 H 09/23/20 03:30 60 21 140/74 09/23/20 03:00 62 18 121/72 09/23/20 02:30 70 17 140/69 09/23/20 02:00 73 20 158/85 H 09/23/20 01:53 98.8 F 76 18 158/85 H Pulse Ox 09/23/20 06:49 97 09/23/20 05:30 97 09/23/20 05:00 97 09/23/20 04:30 96 09/23/20 04:00 98 09/23/20 03:30 96 09/23/20 03:00 97 09/23/20 02:30 98 09/23/20 02:00 98 09/23/20 01:53 98 PG Care Time/CCT Total # of Minutes Spent Total Time Spent with Patient: Total time spent is greater than 50% in coordination of care (as documented) at patient's floor/unit and/or counseling patient: Coding Level of Care Code 50803 Subseq Hosp Care Lvl 3 Diagnoses Unstable angina pectoris I20.0 CAD (coronary artery disease) I25.110 Associated angina: with unstable angina Coronary Disease-Associated Artery/Lesion type: [place] artery [place] vs. transplanted heart: [place] heart Abnormal stress test R94.39 Chest pain I20.0 Chest pain type: chest pain due to myocardial ischemia Ischemic chest pain type: unstable angina pectoris (1) CAD (coronary artery disease) Associated angina: with unstable angina Coronary Disease-Associated Artery/Lesion type: [place] artery [place] vs. transplanted heart: [place] heart Qualified Code(s): I25.110 - Atherosclerotic heart disease of [place] coronary artery with unstable angina pectoris (2) Chest pain Chest pain type: chest pain due to myocardial ischemia Ischemic chest pain type: unstable angina pectoris Qualified Code(s): I20.0 - Unstable angina
[2020-09-23 09:59] LABS: Partial Thromboplastin Ratio 1.4; Partial Thromboplastin Time 39.3 Seconds (21.0-31.0)
--- NOTE | 2020-09-23 11:05 | Communication Note ---
Date of Service: September 23, 2020 By CMS guidelines, a determination that the admission or continued stay is not medically necessary has been made by a member of the UR committee and a physician for this hospital stay, therefore a Code 44 will be completed and the Inpatient admission will be changed to outpatient. Chidi Riddle MD Member, Utilization Review Committee
[2020-09-23] MEDS ORDERED: HEPARIN IV BOLUS 3,000 UNITS in SYRINGE 0 ML IV ONE (12:52)
--- NOTE | 2020-09-23 16:23 | Discharge Summary ---
Date of Service September 24, 2020 Admission HPI Per Admitting Provider By CMS guidelines, a determination that the admission or continued stay is not medically necessary has been made by a member of the UR committee and a physician for this hospital stay, therefore a Code 44 will be completed and the Inpatient admission will be changed to outpatient. Shailesh Antonio is a 71 year old man with a past medical history significant for HTN, HLD, DMII, TIA, peripheral arterial disease (s/p stenting of mid popliteal artery [place] [address] Conti), and newly discovered CAD (Three vessel disease discovered after outpatient catheterization following abnormal echocardiogram ordered by primary care provider for worsening anginal chest pain with exertion). Patient has been having chest pain for some time with exertion, this year he finds he is able to do much less than ever before. He tried to mow his lawn in the fall and could not do it due to crushing substernal chest pain. His primary care provider ordered an echocardiogram which showed left ventricular wall motion abnormality in distribution of LAD. At that time he had never had any resting symptoms. Cardiac catheterization at [facility] on 09/18 showing severe three vessel disease 95% proximal LAD stenosis diffuse mid LAD up to 80%, 90% large OM2 and focal 60-70% mid RCA. Patient was to have elective CABG at [place] but they have not been able to schedule an appointment for any elective pr ocedures yet. After the catheterization patient was given metoprolol to take nightly and nitroglycerin tablets to take with chest pain. Today he has required about 6 nitro tablets and tonight he started to have symptoms at rest. He describes the pain as a sharp pressure in the center of his chest. He feels this is identical to his usual symptoms when he is exerting himself. He dialed 911 and when paramedics arrived they gave him ASA 324 mg and 1 more nitro, on arrival to ED he was pain free if he stayed completely still, ECG was negative troponins were negative vitals WNL. call center support consultant cardiollogist was contacted who recommended starting patient on heparin and admitting to our hospital. At time of my visit patient did begin experiencing chest pain just with conversation with me and I obtained a repeat ECG that was negative. He denies shortness of breath, nausea, vomiting, sweating, syncope or pre syncope, or radiation of his pain. He denies any other symptoms on full review of systems. He is a former cigar smoker and does not drink alcohol except on very rare occasions and denies drug use. Principal Diagnosis Unstable angina Three-vessel coronary disease Discharge Exam The patient appeared well Vital signs as documented. Lungs are clear to auscultation and appear unlabored Cardiac exam, Rhythm is regular.. No murmurs, rubs or gallops. Abdominal exam reveals normal bowel sounds, soft non tender, no masses Extremities are nonedematous and both pedal pulses are normal. Neurologic exam is alert and oriented, no focal loss of strength or sensation Skin is without bruises or rashes Psychologically is without concerns for anxiety or depression. Discharge Data Allergies Allergy/AdvReac Type Severity Reaction Status Date / Time atorvastatin Allergy Unknown PER Verified 09/23/20 03:42 [facility] lovastatin Allergy Unknown PER Verified 09/23/20 03:42 [facility] niacin Allergy Unknown PER Verified 09/23/20 03:42 [facility] [employer] Reductase Allergy Unknown PER Verified 09/23/20 03:42 Inhibitor [facility] telithromycin Allergy Unknown PER Verified 09/23/20 03:42 [facility] STERIODS Allergy Unknown . Uncoded 09/23/20 03:42 Consultations 09/23/20 03:39 ED Decision to Admit Stat 09/23/20 05:43 Consult Cardiology Routine 09/23/20 11:18 Burn CD for patient Stat Hospital Course (1) Unstable angina pectoris: Shailesh Antonio is a 74 year old man with a past medical history significant for DMII, HTN, HLD, PAD and newly discovered CAD who presents with unstable angina Patient left heart cath September 18 which showed 95% LAD with a large 80% lesion but distal vasculature was stenosis free. Percent obtuse marginal 2 and a 70% RCA with preserved EF. Recommendation is to transfer to [facility] for revascularization were made by Dr. Agudelo. However at the time the patient states he wanted to go home and try to wait till after the holidays but since he got home he has had almost daily anginal symptoms which are debilitating for him Heparin drip continues, continuing asa, ramesh inhibitor, and beta suyapa, holding clopidogrel for possible imminent procedure Nitro for chest pain, morphine for severe chest pain, elevation in troponin as of this time HLD Statin intolerance continuing home fibrate and ezetimibe HTN Continuing home amlodipine lisinopril and metoprolol Accepting physician at [facility] is Dr. Zamudio, will await for bed availability and transfer via ambulance Full Code (2) CAD (coronary artery disease): (3) Abnormal stress test: (4) Chest pain: Total Time Total Time Spent Total Time Spent (In Minutes): It required greater than 30 minutes to prepare this patient for discharge Discharge Plan Discharge Items Patient Disposition: Transfer Acute Care Hospital Reason For Visit: UNSTABLE ANGINA Discharge Diagnosis: unstable angina, 3v CAD Activity: Per Instructions section Non-emergency contact: Primary Care Provider and Operational Trainer Call non-emergency contact if: you have any medication questions and your symptoms worsen Follow-up/Referrals: Alejandrina Brooks DO [Primary Care Provider] - Diet: Carb Consistent or DM2 Addtl Attending Provider Instructions: please follow up as directed upon discharge from [facility] Pending Studies at Discharge: No Stand-Alone Forms: [employer] Skilled Items Patient informed of condition?: Yes DNR: No Discharge Level of Care: Other Communicable Disease: No Discharge Prognosis: Other Lines: Peripheral IV Urinary Catheter: No Medications and DC Order Prescriptions: Continued amlodipine 10 mg Tablet 10 mg PO DAILY RF: 0 lisinopril 10 mg Tablet 10 mg PO DAILY RF: 0 fluoxetine 10 mg Capsule 10 mg PO DAILY RF: 0 nitroglycerin [Nitrostat] 0.4 mg Tablet, Sublingual 0.4 mg sublingual Q5M PRN (Reason: Chest Pain) RF: 0 isosorbide mononitrate 30 mg tablet extended release 24 hr 30 mg PO DAILY Qty: 30 RF: 0 metoprolol succinate [Toprol XL] 25 mg tablet extended release 24 hr 25 mg PO DAILY Qty: 30 RF: 1 multivitamin Tablet 1 tab PO DAILY RF: 0 aspirin 81 mg Tablet,Delayed Release (Dr/Ec) 81 mg PO DAILY RF: 0 omeprazole 20 mg capsule,delayed release(DR/EC) 20 mg PO BID RF: 0 ropinirole 0.25 mg tablet 0.25 mg PO HS Qty: 0 RF: 0 ezetimibe 10 mg tablet 10 mg PO DAILY RF: 0 fenofibrate nanocrystallized [Tricor] 145 mg tablet 145 mg PO DAILY RF: 0 Discontinued cyclobenzaprine 10 mg Tablet 10 mg PO TID PRN (Reason: Restless Leg(S)) RF: 0 metformin 500 mg tablet 500 mg PO BID RF: 0 vardenafil [Levitra] 20 mg tablet 20 mg PO UD PRN (Reason: ..) RF: 0 clopidogrel 75 mg tablet 75 mg PO DAILY RF: 0 Discharge Orders: Discharge Order (Routine); Ordered 09/23/20 Ordered By: Shailesh Cutler/Other Patient Handouts: High Blood Sugar (Hyperglycemia), Hypoglycemia (Low Blood Sugar), Managing Type 2 Diabetes, A1C Admission Data Admit Date/Time: 09/23/20 04:41 Attending Provider: Shailesh Peters Admit Provider: Brady Ambrose Primary Care Provider: Alejandrina Brooks Other Providers: Duran Lynch ; Jose M Mcpherson Coding Level of Care Code D/C Day Management >30 mins Diagnoses Unstable angina pectoris I20.0 CAD (coronary artery disease) I25.110 Associated angina: with unstable angina Coronary Disease-Associated Artery/Lesion type: [place] artery [place] vs. transplanted heart: [place] heart Abnormal stress test R94.39 Chest pain I20.0 Chest pain type: chest pain due to myocardial ischemia Ischemic chest pain type: unstable angina pectoris
--- NOTE | 2020-09-23 18:29 | Electrocardiogram Report ---
Test Reason : Blood Pressure : / mmHG Vent. Rate : 071 BPM Atrial Rate : 071 BPM P-R Int : 154 ms QRS Dur : 090 ms QT Int : 402 ms P-R-T Axes : 043 -02 057 degrees QTc Int : 436 ms Normal sinus rhythm Normal ECG When compared with ECG of 11-NOV-2019 20:33, Vent. rate has decreased BY 46 BPM Confirmed by Inocente Mcpherson ([id number]) on 09/23/2020 6:29:32 PM Referred By: REFERRED SELF Confirmed By:Mahad Mcpherson
--- NOTE | 2020-09-23 18:29 | Electrocardiogram Report ---
Test Reason : Blood Pressure : / mmHG Vent. Rate : 061 BPM Atrial Rate : 061 BPM P-R Int : 120 ms QRS Dur : 086 ms QT Int : 432 ms P-R-T Axes : -06 -14 023 degrees QTc Int : 434 ms Normal sinus rhythm Normal ECG When compared with ECG of 23-SEP-2020 01:59, (unconfirmed) No significant change was found Confirmed by Inocente Mcpherson ([id number]) on 09/23/2020 6:29:41 PM Referred By: REFERRED SELF Confirmed By:Mahad Mcpherson
[2020-09-23 19:20] LABS: Partial Thromboplastin Ratio 1.6
[2020-09-23] MEDS: POTASSIUM CHLORIDE CRTAB 20 MEQ TABCR PO SCH (20:41)
[2020-09-23] MEDS ORDERED: rOPINIRole HCL 0.25 MG TABLET PO SCH (21:00)
[2020-09-24 03:26] LABS: Basophils # (auto) 0.04 K/uL (0-0.2); Basophils % (auto) 0.5 %; Eosinophils % (auto) 2.6 %; Hematocrit (blood only) 34.9 % (42-52); Hemoglobin 11.6 g/dL (14.0-18.0); Immature Granulocytes # (auto) 0.02 K/uL (0.00-0.02); Immature Granulocytes % (auto) 0.3 %; Lymphocytes % (auto) 33.1 %; Mean Corpuscular Hemoglobin 29.6 pg (25-34); Mean Corpuscular Hgb Conc 33.2 g/dL (32-36); Mean Platelet Volume 11.1 fL (7.4-10.4); Monocytes # (auto) 0.45 K/uL (0.11-0.59); Neutrophils # (auto) 4.34 K/uL (1.4-6.5); Neutrophils % (auto) 57.5 %; Platelet Count 190 K/uL (130-400); RDW Standard Deviation 41.6 fL (36.4-46.3); Red Blood Count 3.92 M/uL (4.7-6.1); White Blood Count 7.55 K/uL (4.8-10.8)
[2020-09-24] MEDS: HEPARIN SODIUM/DEXTROSE 25,000 UNITS/500 ML BAG IV SCH (03:42)
[2020-09-24 03:44] LABS: BUN Creatinine Ratio 9.1 (10-20); Calcium 8.4 mg/dl (8.5-10.1); Creatinine Clr Calc Pharmacy 28.6 ml/min; Est GFR (African American) 34.5; Est GFR (Non-African American) 29.8; Potassium 3.9 mmol/L (3.5-5.1)
[2020-09-24 03:54] LABS: Partial Thromboplastin Ratio 1.7
[2020-09-24 05:19] LABS: Partial Thromboplastin Time 47.2 Seconds (21.0-31.0)
[2020-09-24 05:47] LABS: Estimated Average Glucose 146 mg/dl; Hemoglobin A1C 6.7 % (4.5-5.6)
[2020-09-24] MEDS: FLUoxetine HCL 10 MG CAP PO SCH (08:03)
[2020-09-24] MEDS: PANTOprazole 40 MG TAB PO SCH (08:03)
[2020-09-24] MEDS: lisinopril 10 MG TAB PO SCH (08:03)
[2020-09-24] MEDS: ISOSORBIDE MONO EXTENDED REL 30 MG TABCR PO SCH (08:03)
[2020-09-24] MEDS: ASPIRIN 81 MG ECTAB PO SCH (08:03)
[2020-09-24] MEDS: MULTIVITAMIN TAB PO SCH (08:03)
[2020-09-24] MEDS: POTASSIUM CHLORIDE CRTAB 20 MEQ TABCR PO SCH (08:03)
[2020-09-24] MEDS: amLODIPine BESYLATE 5 MG TAB PO SCH (08:03)
[2020-09-24] MEDS: EZETIMIBE 10 MG TABLET PO SCH (08:03)
[2020-09-24] MEDS: METOPROLOL SUCC 25MG EXT REL TAB PO SCH (08:03)
[2020-09-24] MEDS: INSULIN ASPART 100 UNITS/ML 3 ML PEN SC SCH ×3 (08:04→17:13)
[2020-09-24] MEDS ORDERED: NORMOSOL-R 1,000 ML IV SCH (09:45)
[2020-09-24] MEDS: FENOFIBRATE NANOCRYSTALLIZED 145 MG TABLET PO SCH (10:22)
[2020-09-24] MEDS ORDERED: MECLIZINE HCL 25 MG TAB PO ONE (17:30)
--- NOTE | 2020-09-24 17:35 | CT Scan Report ---
CT head/brain wo con CLINICAL HISTORY: double vision, dizzy on heparin. EVALUATE FOR HEMORRHAGE COMPARISON STUDY: 11/12/2019 TECHNIQUE: Axial CT of the brain is performed from the vertex to the skull base. IV contrast was not administered for this examination. A dose lowering technique was utilized adhering to the principles of ALARA. CT DOSE: 614.27 mGy.cm FINDINGS: No intra or extra-axial mass lesions are visualized. There is no CT evidence of acute cortical infarc tion. There is no evidence of midline shift. There is no acute hemorrhage. No calvarial fractures ar e visualized. There are moderate white matter hypodensities likely on a small vessel basis. There is no evidence of pathologic ventricular dilatation. There is no evidence of acute sinusitis IMPRESSION: No acute intracranial findings ACT 112: Negative or not required by law. Electronically signed by: Gordo Green M.D. 09/24/2020 5:33 PM
--- NOTE | 2020-09-25 10:50 | Billing Data ---
Date of Service September 25, 2020 Coding Level of Care Code 46615 OBS Care - Level 3
== END 2020-09-24 19:38 | disposition short-term general hospital (02) | DRG 303 ==
LOC: ED 01:53 → SUATTDRO 04:41 → 2S 04:41

== ENCOUNTER 2020-10-10 16:48 | Observation (INO) ==
--- NOTE | 2020-10-10 17:22 | Emergency Department Note ---
Impression & Plan Accidental drug overdose, Fall, Light-headed, Hypotension ED Provider Note NAME: CAIN NAZARIO AGE: 74 SEX: M : 1945 ARRIVES VIA: Ambulance INFORMANT: Patient ED PROVIDER(S): Holger Saleh DO CHIEF COMPLAINT: Dizziness HPI: Patient is a 74-year-old male who presents to the ER for lightheadedness and dizziness. This started earlier today after taking his medications. He was just discharged following bypass and spending about 2 weeks in [place]. He was discharged last night around 7 PM. He got home and he was feeling fine. He woke up he could not keep his new medication bottles open so he took his old medications. He only took 3 pills. Since then he has been lightheaded with changing positions. He denies any focal weakness or numbness. No chest pain or shortness of breath. No belly pain, nausea, vomiting or diarrhea. No dysuria, urgency or frequency. He is supposed to have in-home rehab start tomorrow. ROS: See above HPI for pertinent positives & negatives. A total of 10 systems reviewed and were otherwise negative. PAST MEDICAL HISTORY:See Below PAST SURGICAL HISTORY:See Below FAMILY HISTORY:See Below SOCIAL HISTORY:See Below HOME MEDICATIONS:See Below ALLERGIES:See Below VITALS:See Below PHYSICAL EXAMINATION: GENERAL: Sitting up in bed, alert, well appearing, well nourished, no distress, non-toxic EYE EXAM: normal conjunctiva. OROPHARYNX: mask in place CHEST: Midsternal incisions and ports are clean dry and intact LUNGS: Clear to auscultation. Normal chest wall mechanics HEART: no murmurs, S1 normal and S2 normal ABDOMEN: abdomen soft, non-tender, normo-active bowel sounds, no masses, no rebound or guarding. BACK: Back is symmetrical on inspection and there is no deformity, no midline tenderness, no CVA tenderness. SKIN: no rashes and no bruising UPPER EXTREMITIES: upper extremities are grossly normal. LOWER EXTREMITIES: No pitting edema. Calves are equal bilateral NEURO EXAM: Normal sensorium, cranial nerves II-XII grossly intact, normal speech, no gross weakness of arms, no gross weakness of legs. MEDICAL DECISION MAKING: Patient is a 74-year-old male who was just discharged within the past 24 hours from her she is status post CABG.He got home and he was unable to open his new medication bottles and consequently he took his old. Following this he has felt lightheaded with changing positions. IV was established blood work was obtained and shows a mild leukocytosis. No significant anemia. INR unremarkable. BMP with creatinine LFTs bilirubin troponin was negative. Lipase was elevated at 1500. Covid was negative. Chest x-ray with atelectasis. Patient's pressure upon arrival was 90s. He took 3 medications of his old which he is unsure. The significant changes where the lisinopril has been decreased from 10 to 5 mg per his new medication and he is off of the nitrates which was an extended release. I do favor that he likely took that. Discussed with her she cardiovascular service. They agree with admission and observation. Discussed with hospitalist for further evaluation. Triage Nursing notes reviewed. Limited review of prior medical records performed Vital Signs: reviewed and remarkable for no significant abnormalities Differential diagnosis: Differential diagnosis includes etiologies such as benign positional vertigo, dehydration, hypovolemia, anemia, tumor, infection, hypoglycemia, electrolyte abnormalities, cardiac sources, intracerebral event, toxicologic, neurological, as well as others were entertained. ER treatment provided: See below Diagnostics interpreted by me: ECG: Sinus rhythm rate of 91 Normal axis No PVCs Slightly prolonged QTC Cardiac Monitoring: An order was placed for continuous cardiac monitoring. The monitor shows a rate of 90 with sinus rhythm. Laboratory studies: As stated above and show below. Imaging studies: Chest x-ray as discussed above Consultation(s): Discussed with cardiothoracic surgery at [facility] as stated above discussed with the fellow Discussed with the hospitalist for further evaluation Procedures: none Critical Care: None Past Med/Surg History Medical History GERD (gastroesophageal reflux disease) HTN (hypertension) Hypercholesteremia Mini stroke On Coumadin for atrial fibrillation Presence of arterial stent L leg, unable to relate exact location. TIA (transient ischemic attack) Type II diabetes mellitus Surgical History H/O knee surgery stent behind left knee 2017 H/O vasectomy Hx of colonoscopy 2017 No significant past surgical history Family History Grandfather Colorectal cancer Mother Diabetes Hypertension Brother Stroke Social History Smoking Status: Never smoker Hx Alcohol Use: No Hx Substance Use: No Preferred Language: Wallisian Communication Ability: Effective Coloring Room Man Required: No Beliefs That Will Affect Care: None Current Living Situation: Alone current occupational status: retired Other Information That Helps Us Care for You: No Feels Safe at Home: Yes Safety Concerns: Feels Safe At This Time Assistive Devices: Glasses and Hearing Aid - Bilateral Allergies Allergies Allergy/AdvReac Type Severity Reaction Status Date / Time niacin Allergy Unknown ARTHRALGIAS Verified 10/10/20 18:07 FROM ADVICOR telithromycin Allergy Unknown ARTHRALGIAS Verified 10/10/20 18:07 FROM ADVICOR atorvastatin AdvReac Intermediate Muscle Pain Verified 10/10/20 18:07 lovastatin AdvReac Intermediate ARTHRALGIAS Verified 10/10/20 18:07 FROM ADVICOR [id number] Reductase AdvReac Intermediate Muscle Pain Verified 10/10/20 18:07 Inhibitor STERIODS Allergy Unknown Unknown Uncoded 10/10/20 18:07 Home Meds Home Medications Medication Instructions Recorded Confirmed aspirin 81 mg PO DAILY 08/08/18 10/10/20 multivitamin 1 tab PO DAILY 08/08/18 10/10/20 omeprazole 40 mg PO DAILY 08/08/18 10/10/20 ezetimibe 10 mg PO DAILY 11/11/19 10/10/20 fenofibrate nanocrystallized 145 mg PO DAILY 11/11/19 10/10/20 [Tricor] amlodipine 10 mg PO DAILY 09/18/20 10/10/20 fluoxetine 10 mg PO DAILY 09/18/20 10/10/20 acetaminophen [Tylenol Extra 1,000 mg PO Q6H PRN 10/10/20 10/10/20 Strength] apixaban [Eliquis] 5 mg PO BID 10/10/20 10/10/20 carboxymethylcellulose sodium 1 drp OPL HS 10/10/20 10/10/20 [Refresh] cyclobenzaprine 10 mg PO TID PRN 10/10/20 10/10/20 gabapentin 300 mg PO TID 10/10/20 10/10/20 lisinopril 5 mg PO DAILY 10/10/20 10/10/20 metoprolol tartrate 25 mg PO TID 10/10/20 10/10/20 prednisone 40 mg PO DAILY 10/10/20 10/10/20 Previous Rx's Medication Instructions Recorded ropinirole 0.25 mg PO HS #0 tab 08/11/18 Results & Data (ED) Vital Signs Vital Signs - 24 hr 10/10/20 16:56 Temperature 36.7 C Temperature Source Oral Pulse Rate 97 H Pulse Rhythm Regular Pulse Strength Normal Respiratory Rate 21 Respiratory Effort / Characteristics Non-Labored Respiratory Depth Normal Respiratory Pattern Regular Blood Pressure 125/74 Blood Pressure Mean 91 Blood Pressure Position Lying Pulse Oximetry 96 Oxygen Delivery Method Room Air Sepsis Recent Fever Within 48 Hours No Sepsis New/Unexplained Change in Mental Status N/A Sepsis Action Taken by Nursing No Action Required Laboratory Data Result diagrams: 10/10/20 17:00 10/10/20 17:00 Lab Results 10/10/20 10/10/20 10/10/20 Range/Units 17:00 17:00 17:00 WBC 13.92 H (4.8-10.8) K/uL RBC 3.79 L (4.7-6.1) M/uL Hgb 11.4 L (14.0-18.0) g/dL Hct 33.9 L (42-52) % MCV 89.4 (80-100) fL MCH 30.1 (25-34) pg MCHC 33.6 (32-36) g/dL RDW Std Deviation 43.0 (36.4-46.3) fL RDW Coeff of Brice 13.3 (11.5-14.5) % Plt Count 563 H (130-400) K/uL MPV 10.7 H (7.4-10.4) fL Immature Gran % (Auto) 1.2 % Neut % (Auto) 73.8 % Lymph % (Auto) 17.9 % Gregory % (Auto) 5.7 % Eos % (Auto) 1.0 % Baso % (Auto) 0.4 % Neut # (Auto) 10.27 H (1.4-6.5) K/uL Lymph # (Auto) 2.49 (1.2-3.4) K/uL Gregory # (Auto) 0.80 H (0.11-0.59) K/uL Eos # (Auto) 0.14 (0-0.5) K/uL Baso # (Auto) 0.05 (0-0.2) K/uL Immature Gran # (Auto) 0.17 H (0.00-0.02) K/uL PT 11.9 (9.0-12.0) Seconds INR 1.1 (0.9-1.1) APTT 29.8 (21.0-31.0) Seconds PTT Ratio 1.1 Sodium 137 (136-145) mmol/L Potassium 3.9 (3.5-5.1) mmol/L Chloride 106 (98-107) mmol/L Carbon Dioxide 22 (21-32) mmol/L Anion Gap 9.0 (3-11) BUN 35 H (7-18) mg/dl Creatinine 1.71 H (0.6-1.4) mg/dl Est Cr Clr Drug Dosing 35.4 ml/min Est GFR ( Amer) 44.7 Est GFR (Non-Af Amer) 38.6 BUN/Creatinine Ratio 20.7 H (10-20) Glucose 154 H (70-99) mg/dl Calcium 9.2 (8.5-10.1) mg/dl Total Bilirubin 0.4 (0.2-1) mg/dl AST 46 H (15-37) U/L ALT 78 (12-78) U/L Alkaline Phosphatase 136 H (45-117) U/L Troponin I 0.019 (0-0.045) ng/ml Total Protein 7.3 (6.4-8.2) gm/dl Albumin 3.3 L (3.4-5.0) gm/dl Globulin 4.0 (2.5-4.0) gm/dl Albumin/Globulin Ratio 0.8 L (0.9-2) Lipase 1535 H (73-393) U/L Administered Medications Apixaban (Apixaban 5 Mg Tablet) 5 mg PO BID RUPINDER Stop: 11/09/20 22:14 Last Admin: 10/10/20 22:33 Dose: 5 mg Documented by: [id number] Gabapentin (Gabapentin 300 Mg Cap) 300 mg PO TID RUPINDER Stop: 11/09/20 22:29 Last Admin: 10/10/20 22:33 Dose: 300 mg Documented by: [id number] Sodium Chloride (Nss 1000ml) 1,000 mls @ 75 mls/hr IV .[id number] [facility] Stop: 11/09/20 21:58 Last Admin: 10/10/20 22:31 Dose: 75 mls/hr Documented by: [id number] Metoprolol Tartrate (Metoprolol Tartrate 25 Mg Tab) 25 mg PO TID [facility] Stop: 11/09/20 22:29 Last Admin: 10/10/20 22:33 Dose: 25 mg Documented by: [id number] Ropinirole HCl (Ropinirole Hcl 0.25 Mg Tablet) 0.25 mg PO DAILY@1900 [facility] Stop: 11/09/20 22:29 Last Admin: 10/10/20 22:33 Dose: 0.25 mg Documented by: [id number] Discontinued Medications Sodium Chloride (Nss 1000ml) 500 mls @ 999 mls/hr IV .Q31M ONE Stop: 10/10/20 18:09 Last Infusion: 10/10/20 18:26 Dose: 0 mls/hr Documented by: [id number] Admin: 10/10/20 17:53 Dose: 999 mls/hr Documented by: [id number] Discharge Plan Visit Data Chief Complaint: Illness Stated Complaint: DIZZINESS, FALL ED Provider: Holger Saleh Discharge Problem: Accidental drug overdose, Fall, Light-headed, Hypotension Patient Disposition: Admitted As Inpatient Discharge Instructions Interventions: ED Discharge Assessment Last Done: 10/10/20 21:20 Discharge Problem: Accidental drug overdose Qualifiers: Encounter type: initial encounter Qualified Code(s): T50.901A - Poisoning by unspecified drugs, medicaments and biological substances, accidental (unintentional), initial encounter Fall Qualifiers: Encounter type: initial encounter Qualified Code(s): W19.XXXA - Unspecified fall, initial encounter Hypotension Qualifiers: Hypotension type: unspecified hypotension type Qualified Code(s): I95.9 - Hypotension, unspecified
[2020-10-10 17:25] LABS: Basophils # (auto) 0.05 K/uL (0-0.2); Basophils % (auto) 0.4 %; Eosinophils # (auto) 0.14 K/uL (0-0.5); Hematocrit (blood only) 33.9 % (42-52); Hemoglobin 11.4 g/dL (14.0-18.0); Immature Granulocytes # (auto) 0.17 K/uL (0.00-0.02); Immature Granulocytes % (auto) 1.2 %; Lymphocytes # (auto) 2.49 K/uL (1.2-3.4); Lymphocytes % (auto) 17.9 %; Mean Corpuscular Hemoglobin 30.1 pg (25-34); Mean Corpuscular Hgb Conc 33.6 g/dL (32-36); Mean Corpuscular Volume 89.4 fL (80-100); Mean Platelet Volume 10.7 fL (7.4-10.4); Monocytes % (auto) 5.7 %; Neutrophils # (auto) 10.27 K/uL (1.4-6.5); Neutrophils % (auto) 73.8 %; Platelet Count 563 K/uL (130-400); RDW Coefficient of Variation 13.3 % (11.5-14.5); Red Blood Count 3.79 M/uL (4.7-6.1); White Blood Count 13.92 K/uL (4.8-10.8)
[2020-10-10] MEDS ORDERED: SODIUM CHLORIDE 0.9% 1000ML 500 ML IV ONE (17:39)
[2020-10-10 17:40] LABS: INR 1.1 (0.9-1.1); Partial Thromboplastin Ratio 1.1; Partial Thromboplastin Time 29.8 Seconds (21.0-31.0); Prothrombin Time 11.9 Seconds (9.0-12.0)
[2020-10-10 17:47] LABS: Albumin Level 3.3 gm/dl (3.4-5.0); BUN Creatinine Ratio 20.7 (10-20); Calcium 9.2 mg/dl (8.5-10.1); Creatinine Clr Calc Pharmacy 35.4 ml/min; Est GFR (African American) 44.7; Est GFR (Non-African American) 38.6; Potassium 3.9 mmol/L (3.5-5.1)
[2020-10-10 17:51] LABS: Albumin Globulin Ratio 0.8 (0.9-2); Bilirubin,Total 0.4 mg/dl (0.2-1); Total Protein 7.3 gm/dl (6.4-8.2); Troponin I 0.019 ng/ml (0-0.045)
--- NOTE | 2020-10-10 17:53 | XRay Report ---
XR chest 1V portable CLINICAL HISTORY: Chest Pain COMPARISON STUDY: Chest radiograph September 23, 2020. FINDINGS: There is mild elevation of the left hemidiaphragm. Interval median sternotomy is noted. The re are mediastinal surgical clips. Note is made of mild cardiomegaly. A small left pleural effusion i s noted. There is left basilar consolidation. Pulmonary vascular congestion. No pneumothorax is prese nt. Calcified granuloma within the left upper lobe is incidentally noted. There may be mild right bas ilar opacity. IMPRESSION: 1. Interval median sternotomy. Small left pleural effusion. Left basilar opacity which is suspicious for consolidation although atelectasis could appear similar. Right basilar opacity which may reflect consolidation or atelectasis. Radiographic follow up is recommended. 2. Pulmonary vascular congestion without overt pulmonary edema. ACT 112: Negative or not required by law. Electronically signed by: Ronny Sanderson M.D. 10/10/2020 5:51 PM
--- NOTE | 2020-10-10 18:15 | CT Scan Report ---
CT OF THE HEAD WITHOUT CONTRAST CLINICAL HISTORY: dizzy COMPARISON STUDY: Head CT September 24, 2020. CT DOSE: 537.48 mGy.cm TECHNIQUE: Helical axial images of the head were obtained without IV contrast. Automated exposure con trol was utilized for the study. A dose lowering technique was utilized adhering to the principles o f ALARA. FINDINGS: No acute intracranial hemorrhage, midline shift or mass effect is present. White matter hyp odensities are unchanged. The ventricular system is unremarkable. The basal cisterns are patent. No e xtra-axial collections are present. There are no findings to suggest acute dural sinus thrombosis or acute territorial infarct. No significant calvarial abnormalities are present. Visualized portions of the sinuses and mastoid air cells are clear. IMPRESSION: No acute intracranial findings. No change in appearance of the brain. ACT 112: Negative or not required by law. Electronically signed by: Ronny Sanderson M.D. 10/10/2020 6:13 PM
--- NOTE | 2020-10-10 19:06 | History & Physical Report ---
Date of Service October 10, 2020 Assessment & Plan (1) Fall: I suspect the patient's fall is from hypotension due to taking the incorrect blood pressure medications-it is suspected he continue to take his usual dose of lisinopril 10 mg daily as well as his previous isosorbide which was discontinued at [facility]. We will therefore proceed as follows: Patient be placed in the hospital as an observation. We will provide gentle hydration. Monitor his vitals as well as check orthostatic vitals For blood pressure the patient now takes lisinopril 5 mg daily as well as metoprolol 25 mg 3 times daily. In addition he takes amlodipine 10 mg daily. For the present time we will only continue his metoprolol we will hold the other 2 medications until we are certain his blood pressure remains stable. We will obtain physical and Occupational Therapy consultations as well as involve discharge planning to ensure safe disposition. Left pleural effusion that is small as noted on his chest x-ray. I suspect this is likely due to to the harvesting of his left internal mammary artery from his recent surgery. Tomorrow may be prudent to ask pulmonary to review the chest x- ray to see if this effusion is large enough to warrant thoracentesis. Patient takes Eliquis so no further DVT prevention will be needed Discussed CODE STATUS with this man in the event of cardiopulmonary arrest he wishes to be a level 1 full code (2) Postoperative atrial fibrillation: During postoperative period from CABG Continue metoprolol 25 3 times daily and Eliquis 5 mg p.o. twice daily Follow-up with cardiology Is in a sinus rhythm here on ECG (3) Restless leg syndrome: Continue home ropinirole (4) Hypertriglyceridemia: Continue home Zetia and TriCor Lipase is elevated here, but he has no abdominal pain whatsoever (5) DM (diabetes mellitus): Hemoglobin A1c 6.7% in 08/2020 Accu-Cheks and NovoLog sliding scale here especially as he is on a short course of prednisone He previously was on metformin but this is not on his home medication list- suspect because creatinine is 1.7 at baseline now Need to consider further medication as an outpatient with PCP (6) CKD (chronic kidney disease) stage 3, GFR 30-59 ml/min: Creatinine baseline 1.7 which is where he is at now -Avoid nephrotoxins -renally dose meds when appropriate -follow BMP in the morning (7) CAD (coronary artery disease): Status post recent three-vessel CABG Continue aspirin, metoprolol, Eliquis He is intolerant of statins Continue Zetia and TriCor (8) GERD (gastroesophageal reflux disease): Continue PPI (9) HTN (hypertension): Blood pressures were low upon arrival as noted above Holding home amlodipine and lisinopril for now but can restart in the morning if blood pressures become elevated Continue metoprolol titrate 25 mg p.o. 3 times daily (10) Depression: Continue fluoxetine (11) S/P CABG x 3: With recent prolonged hospitalization status post CABG Doing much better now, wound is healing Continue on short course of prednisone and gabapentin both of which were prescribed upon discharge from [facility] yesterday presumably for pain, but question if is being treated for pericarditis? (12) Elevated lipase: Lipase elevated at 1500 and LFTs mildly elevated He has no abdominal pain at all, no nausea and Likely secondary to recent cardiothoracic surgery Follow lipase in the morning (13) DVT prophylaxis: Dianaquis Disposition admit to medical floor with telemetry on observation PT/OT consultations Likely discharge to home versus rehab tomorrow History of Present Illness Chief Complaint: I fell down at home Primary Care Provider: Alejandrina Brooks, This is a 74-year-old male who recently underwent coronary artery bypass grafting [facility]. Patient says that his procedure was performed on September 26, 2020. He notes he was in the hospital for approximately 2 weeks. He reported that his postoperative course was complicated by atrial fibrillation and there is also concern that he may have had a stroke but he notes after further testing this was not the case. He was discharged home on October 09, 2020. He presented to [facility] emergency department after suffering a fall earlier today. Patient says that he became confused with his prescribed medications and thinks he may have taken the incorrect blood pressure medicines. He could not tell me exactly which medicines he took. Prior to falling he says he barely became lightheaded. He said the room was not spinning, he did not suffer any chest pain, he was not short of breath, and he did not experience any palpitations. Denied any strokelike symptoms such as visual loss or extremity weakness. He also did not experience any dysarthria. He presented to the emergency department where CT scan of the head showed that he had no acute intracranial process. Chest x-ray was performed that showed previous median sternotomy, no evidence of pneumonia or CHF, however a small left pleural effusion was noted. Labs revealed a white blood cell count of 13.9, hemoglobin and hematocrit were 11.4 and 33.9, platelet count was noted to be 563,000. Coagulation studies were noted to be normal. Chemistry profile showed sodium was 137 and potassium was 3.9. His BUN and creatinine was noted to be 35 and 1.7. Upon review of records his creatinine was noted to be near baseline. The treating emergency room physician did discuss with the cardiothoracic fellow at [facility]. He noted that there were some changes made in the patient's blood pressure medications and in light of the patient's history felt that he may have taken the incorrect blood pressure medications resulting in the symptoms he experienced. The emergency room physician did report the patient's blood pressure improved with administration of IV fluids. Was further reported that at [facility] they recommended acute inpatient rehab however the patient opted to be discharged home with home rehab. At the time of my exam the patient was resting comfortably in bed in no distress. Allergies Allergy/AdvReac Type Severity Reaction Status Date / Time niacin Allergy Unknown ARTHRALGIAS Verified 10/10/20 18:07 FROM ADVICOR telithromycin Allergy Unknown ARTHRALGIAS Verified 10/10/20 18:07 FROM ADVICOR atorvastatin AdvReac Intermediate Muscle Pain Verified 10/10/20 18:07 lovastatin AdvReac Intermediate ARTHRALGIAS Verified 10/10/20 18:07 FROM ADVICOR Voklvhg-Mki-Wip Reductase AdvReac Intermediate Muscle Pain Verified 10/10/20 18:07 Inhibitor STERIODS Allergy Unknown Unknown Uncoded 10/10/20 18:07 Home Medications Medication Instructions Recorded Confirmed Type aspirin 81 mg PO DAILY 08/08/18 10/10/20 History multivitamin 1 tab PO DAILY 08/08/18 10/10/20 History omeprazole 40 mg PO DAILY 08/08/18 10/10/20 History ropinirole 0.25 mg PO HS #0 tab 08/11/18 10/10/20 Rx ezetimibe 10 mg PO DAILY 11/11/19 10/10/20 History fenofibrate nanocrystallized 145 mg PO DAILY 11/11/19 10/10/20 History [Tricor] amlodipine 10 mg PO DAILY 09/18/20 10/10/20 History fluoxetine 10 mg PO DAILY 09/18/20 10/10/20 History acetaminophen [Tylenol Extra 1,000 mg PO Q6H PRN 10/10/20 10/10/20 History Strength] apixaban [Eliquis] 5 mg PO BID 10/10/20 10/10/20 History carboxymethylcellulose sodium 1 drp OPL HS 10/10/20 10/10/20 History [Refresh] cyclobenzaprine 10 mg PO TID PRN 10/10/20 10/10/20 History gabapentin 300 mg PO TID 10/10/20 10/10/20 History lisinopril 5 mg PO DAILY 10/10/20 10/10/20 History metoprolol tartrate 25 mg PO TID 10/10/20 10/10/20 History prednisone 40 mg PO DAILY 10/10/20 10/10/20 History Past Med/Surg History Medical History (Updated 10/10/20 @ 23:30 by Geneva Hernandez MD) CAD (coronary artery disease) CKD (chronic kidney disease) stage 3, GFR 30-59 ml/min Depression DM (diabetes mellitus) GERD (gastroesophageal reflux disease) HTN (hypertension) Hypercholesteremia Hypertriglyceridemia Mini stroke Postoperative atrial fibrillation Presence of arterial stent L leg, unable to relate exact location. Restless leg syndrome TIA (transient ischemic attack) Type II diabetes mellitus Surgical History (Updated 10/10/20 @ 23:28 by Geneva Hernandez MD) H/O knee surgery stent behind left knee 2017 H/O vasectomy History of angioplasty of peripheral vessel LLE angiogram with BUSINESS SUPPORT ADMINISTRATOR popliteal 05/23/2018 Hx of colonoscopy 2017 S/P CABG x 3 Family History Grandfather Colorectal cancer Mother Diabetes Hypertension Brother Stroke Social History Smoking Status: Never smoker Hx Alcohol Use: No Hx Substance Use: No Preferred Language: Romanian Communication Ability: Effective Assistant 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 Required: No Beliefs That Will Affect Care: None Current Living Situation: Alone current occupational status: retired Other Information That Helps Us Care for You: No Feels Safe at Home: Yes Safety Concerns: Feels Safe At This Time Assistive Devices: Glasses and Hearing Aid - Bilateral Review of Systems Constitutional: no fever and no body aches Eyes: no diplopia Ear, Nose, Mouth, Throat: no ear pain Respiratory: no cough and no dyspnea Cardiovascular: no chest pain, no palpitations and no syncope Gastrointestinal: no abdominal pain, no nausea and no vomiting Genitourinary: no dysuria Musculoskeletal: no back pain Integumentary: no rash Neurologic: no localized weakness Physical Exam Physical Exam: Patient sternum is grossly stable by exam. His median sternotomy incision is healing well without signs of infection Constitutional: well developed and well nourished; no acute distress Eyes: no conjunctival abnormality ENMT: Ears: no hearing impairment Neck: trachea midline Respiratory: normal respiratory effort; no respiratory distress and no labored breathing Breath sounds are decreased at left base Cardiovascular: Rate/Rhythm: regular rate and regular rhythm Gastrointestinal (Abdomen): Percussion/Palpation: abdomen soft; abdomen nontender Musculoskeletal: No calf tenderness. Patient has several well-healing longitudinal incisions on his left lower extremity from saphenous vein harvest sites Skin: normal turgor Neurologic: CN's II-XI intact bilaterally and moves all extremities Psychiatric: A+Ox3, euthymic affect Results & Data Results & Data ([facility]) Vital Signs (Past 12 Hours) Vital Signs Temp Pulse Resp BP Pulse Ox 10/10/20 16:56 36.7 C 97 H 21 125/74 96 Laboratory Results 10/10/20 10/10/20 10/10/20 Range/Units 21:54 19:55 19:55 WBC (4.8-10.8) K/uL RBC (4.7-6.1) M/uL Hgb (14.0-18.0) g/dL Hct (42-52) % MCV (80-100) fL MCH (25-34) pg MCHC (32-36) g/dL RDW Std Deviation (36.4-46.3) fL RDW Coeff of Brice (11.5-14.5) % Plt Count (130-400) K/uL MPV (7.4-10.4) fL Immature Gran % (Auto) % Neut % (Auto) % Lymph % (Auto) % [place] % (Auto) % Eos % (Auto) % Baso % (Auto) % Neut # (Auto) (1.4-6.5) K/uL Lymph # (Auto) (1.2-3.4) K/uL [place] # (Auto) (0.11-0.59) K/uL Eos # (Auto) (0-0.5) K/uL Baso # (Auto) (0-0.2) K/uL Immature Gran # (Auto) (0.00-0.02) K/uL PT (9.0-12.0) Seconds INR (0.9-1.1) APTT (21.0-31.0) Seconds PTT Ratio Sodium (136-145) mmol/L Potassium (3.5-5.1) mmol/L Chloride (98-107) mmol/L Carbon Dioxide (21-32) mmol/L Anion Gap (3-11) BUN (7-18) mg/dl Creatinine (0.6-1.4) mg/dl Est Cr Clr Drug Dosing ml/min Est GFR ( Amer) Est GFR (Non-Af Amer) BUN/Creatinine Ratio (10-20) Glucose (70-99) mg/dl POC Glucose 166 H (70-99) mg/dl Calcium (8.5-10.1) mg/dl Total Bilirubin (0.2-1) mg/dl AST (15-37) U/L ALT (12-78) U/L Alkaline Phosphatase (45-117) U/L Troponin I (0-0.045) ng/ml Total Protein (6.4-8.2) gm/dl Albumin (3.4-5.0) gm/dl Globulin (2.5-4.0) gm/dl Albumin/Globulin Ratio (0.9-2) Lipase (73-393) U/L COVID-19 Eval Order Covid19 IDNow [facility] SARS-CoV-2, RNA, NAAT NEGATIVE (NEGATIVE) 10/10/20 10/10/20 10/10/20 Range/Units 17:00 17:00 17:00 WBC 13.92 H (4.8-10.8) K/uL RBC 3.79 L (4.7-6.1) M/uL Hgb 11.4 L (14.0-18.0) g/dL Hct 33.9 L (42-52) % MCV 89.4 (80-100) fL MCH 30.1 (25-34) pg MCHC 33.6 (32-36) g/dL RDW Std Deviation 43.0 (36.4-46.3) fL RDW Coeff of Brice 13.3 (11.5-14.5) % Plt Count 563 H (130-400) K/uL MPV 10.7 H (7.4-10.4) fL Immature Gran % (Auto) 1.2 % Neut % (Auto) 73.8 % Lymph % (Auto) 17.9 % [place] % (Auto) 5.7 % Eos % (Auto) 1.0 % Baso % (Auto) 0.4 % Neut # (Auto) 10.27 H (1.4-6.5) K/uL Lymph # (Auto) 2.49 (1.2-3.4) K/uL [place] # (Auto) 0.80 H (0.11-0.59) K/uL Eos # (Auto) 0.14 (0-0.5) K/uL Baso # (Auto) 0.05 (0-0.2) K/uL Immature Gran # (Auto) 0.17 H (0.00-0.02) K/uL PT 11.9 (9.0-12.0) Seconds INR 1.1 (0.9-1.1) APTT 29.8 (21.0-31.0) Seconds PTT Ratio 1.1 Sodium 137 (136-145) mmol/L Potassium 3.9 (3.5-5.1) mmol/L Chloride 106 (98-107) mmol/L Carbon Dioxide 22 (21-32) mmol/L Anion Gap 9.0 (3-11) BUN 35 H (7-18) mg/dl Creatinine 1.71 H (0.6-1.4) mg/dl Est Cr Clr Drug Dosing 35.4 ml/min Est GFR ( Amer) 44.7 Est GFR (Non-Af Amer) 38.6 BUN/Creatinine Ratio 20.7 H (10-20) Glucose 154 H (70-99) mg/dl POC Glucose (70-99) mg/dl Calcium 9.2 (8.5-10.1) mg/dl Total Bilirubin 0.4 (0.2-1) mg/dl AST 46 H (15-37) U/L ALT 78 (12-78) U/L Alkaline Phosphatase 136 H (45-117) U/L Troponin I 0.019 (0-0.045) ng/ml Total Protein 7.3 (6.4-8.2) gm/dl Albumin 3.3 L (3.4-5.0) gm/dl Globulin 4.0 (2.5-4.0) gm/dl Albumin/Globulin Ratio 0.8 L (0.9-2) Lipase 1535 H (73-393) U/L COVID-19 Eval Order SARS-CoV-2, RNA, NAAT (NEGATIVE) Diagnostic Findings CT OF THE HEAD WITHOUT CONTRAST CLINICAL HISTORY: dizzy COMPARISON STUDY: Head CT September 24, 2020. CT DOSE: 537.48 mGy.cm TECHNIQUE: Helical axial images of the head were obtained without IV contrast. Automated exposure control was utilized for the study. A dose lowering technique was utilized adhering to the principles of ALARA. FINDINGS: No acute intracranial hemorrhage, midline shift or mass effect is present. White matter hypodensities are unchanged. The ventricular system is unremarkable. The basal cisterns are patent. No extra-axial collections are present. There are no findings to suggest acute dural sinus thrombosis or acute territorial infarct. No significant calvarial abnormalities are present. Visualized portions of the sinuses and mastoid air cells are clear. IMPRESSION: No acute intracranial findings. No change in appearance of the brain. XR chest 1V portable CLINICAL HISTORY: Chest Pain COMPARISON STUDY: Chest radiograph September 23, 2020. FINDINGS: There is mild elevation of the left hemidiaphragm. Interval median sternotomy is noted. There are mediastinal surgical clips. Note is made of mild cardiomegaly. A small left pleural effusion is noted. There is left basilar consolidation. Pulmonary vascular congestion. No pneumothorax is present. Calcified granuloma within the left upper lobe is incidentally noted. There may be mild right basilar opacity. IMPRESSION: 1. Interval median sternotomy. Small left pleural effusion. Left basilar opacity which is suspicious for consolidation although atelectasis could appear similar. Right basilar opacity which may reflect consolidation or atelectasis. Radiographic follow up is recommended. 2. Pulmonary vascular congestion without overt pulmonary edema. Supervising Physician Co-Signing Physician Notes PA Supervision Note: I personally saw and examined the patient. I verified all morrison points and agree with SHAUN Marquez with the following exceptions and/or additions: This patient is a 74-year-old male with a history of recent CABG in 2 weeks stay at [facility] after surgery for postoperative complications. Records not available for review but patient reports a possible stroke as well as postoperative atrial fibrillation. He is also on prednisone and gabapentin which suggest perhaps he had a bit of a postoperative pericarditis and chest pain. He presents to the ER after feeling very lightheaded after not being able to take his new medications, he opened up bottles of his old medications and took them. During his hospitalization, his isosorbide and lisinopril were either discontinued or decreased in dose and is thought that perhaps he took these doses instead. He was given gentle IV fluids in the ER and had significant improvement. He was extremely frustrated that he had to stay in the hospital and was hoping to be sent home, however given recent prolonged hospitalization for serious illness status post CABG, it was best to bring him in on observation he was finally agreeable to this. He denies any chest pain other than some soreness in a musculoskeletal sense from his CABG. He denies any shortness of breath or cough. No fevers. No abdominal pains or diarrhea. History and ROS reviewed in depth Vitals reviewed Gen: AAOx3, NAD HEENT: Anicteric sclerae, EOMI CV: RRR intermittent possible rub auscultated, no murmur, nl S1S2 Pulm: CTAB no wcr except some diminished lung sounds at the left base Abd: +BS soft NT ND no masses or hernias Ext: No edema, 2+ DP pulses Skin: No rashes, warm/dry Neuro: Full strength throughout After eval is reviewed Radiology studies reviewed ECG reviewed 74-year-old male with history as above, here with lightheadedness and hypotension likely secondary to accidental overdose on antihypertensives. Already much improved with gentle IV fluids, but bring in on observation due to multiple comorbidities and recent prolonged hospital stay. Check orthostatics Gently hydrate with IV fluids and holding lisinopril and amlodipine as above Continue other home medications. He does have a possible pericardial rub auscultated on examination-suspect he may have had some sort of Leighann syndrome given that he is on prednisone? Fortunately, blood pressures are now much improved We will obtain limited echo to assess for pericardial effusion and consult cardiology Monitor on telemetry PG Care Time/CCT Total # of Minutes Spent Total Time Spent with Patient: Total time spent is greater than 50% in coordination of care (as documented) at patient's floor/unit and/or counseling patient: Coding Level of Care Code 78164 OBS Care - Level 3 Diagnoses Fall W19.XXXA Postoperative atrial fibrillation I97.89; I48.91 Restless leg syndrome G25.81 Hypertriglyceridemia E78.1 DM (diabetes mellitus) E11.9 CKD (chronic kidney disease) stage 3, GFR 30-59 ml/min N18.30 CAD (coronary artery disease) I25.110 Associated angina: with unstable angina Coronary Disease-Associated Artery/Lesion type: [place] artery [place] vs. transplanted heart: [place] heart GERD (gastroesophageal reflux disease) K21.9 HTN (hypertension) I10 Depression F32.9 S/P CABG x 3 Z95.1 Elevated lipase R74.8 DVT prophylaxis Z29.9 (1) CAD (coronary artery disease) Associated angina: with unstable angina Coronary Disease-Associated Artery/Lesion type: [place] artery [place] vs. transplanted heart: [place] heart Qualified Code(s): I25.110 - Atherosclerotic heart disease of [place] coronary artery with unstable angina pectoris
[2020-10-10] MEDS ORDERED: SODIUM CHLORIDE 0.9% 1000ML 1,000 ML IV SCH (21:59)
[2020-10-10] MEDS ORDERED: CYCLOBENZAPRINE HCL 10 MG TAB PO PRN (22:03)
[2020-10-10] MEDS ORDERED: ACETAMINOPHEN 500 MG TAB PO PRN (22:06)
[2020-10-10] MEDS ORDERED: rOPINIRole HCL 0.25 MG TABLET PO SCH (22:30)
[2020-10-10] MEDS: APIXABAN 5 MG TABLET PO SCH (22:33)
[2020-10-10] MEDS: GABAPENTIN 300 MG CAP PO SCH (22:33)
[2020-10-10] MEDS: METOPROLOL TARTRATE 25 MG TAB PO SCH (22:33)
[2020-10-10] MEDS ORDERED: GLUCOSE 40% GEL 15 GM TUBE PO PRN (23:26)
[2020-10-10] MEDS ORDERED: CARBOHYDRATES FOR HYPOGLYCEMIA PO PRN (23:26)
[2020-10-10] MEDS ORDERED: DEXTROSE 50% 50 ML SYRINGE IV PRN (23:26)
[2020-10-10] MEDS ORDERED: GLUCOSE 10 TABS/TUBE PO PRN (23:26)
[2020-10-10] MEDS ORDERED: GLUCAGON FOR INJ 1 MG VIAL SQ PRN (23:26)
[2020-10-11] MEDS ORDERED: MELATONIN 3 MG TAB PO PRN (01:33)
[2020-10-11 07:23] LABS: Basophils # (auto) 0.07 K/uL (0-0.2); Basophils % (auto) 0.5 %; Eosinophils # (auto) 0.23 K/uL (0-0.5); Eosinophils % (auto) 1.7 %; Hemoglobin 10.4 g/dL (14.0-18.0); Immature Granulocytes # (auto) 0.16 K/uL (0.00-0.02); Immature Granulocytes % (auto) 1.2 %; Lymphocytes # (auto) 2.58 K/uL (1.2-3.4); Lymphocytes % (auto) 18.6 %; Mean Corpuscular Hemoglobin 29.4 pg (25-34); Mean Corpuscular Hgb Conc 32.5 g/dL (32-36); Mean Corpuscular Volume 90.4 fL (80-100); Mean Platelet Volume 10.5 fL (7.4-10.4); Monocytes # (auto) 1.02 K/uL (0.11-0.59); Monocytes % (auto) 7.3 %; Neutrophils # (auto) 9.84 K/uL (1.4-6.5); Neutrophils % (auto) 70.7 %; Platelet Count 404 K/uL (130-400); RDW Coefficient of Variation 13.4 % (11.5-14.5); Red Blood Count 3.54 M/uL (4.7-6.1)
[2020-10-11] MEDS ORDERED: INSULIN ASPART 100 UNITS/ML 3 ML PEN SC SCH ×2 (07:30→08:00)
[2020-10-11] MEDS ORDERED: PERFLUTREN LIPID MICROSPHERE (DEFINITY) IV ONE (07:51)
[2020-10-11 07:55] LABS: Albumin Level 2.7 gm/dl (3.4-5.0); BUN Creatinine Ratio 20.1 (10-20); Calcium 8.9 mg/dl (8.5-10.1); Creatinine Clr Calc Pharmacy 40.9 ml/min; Est GFR (African American) 53.3; Magnesium 1.9 mg/dl (1.8-2.4); Potassium 4.3 mmol/L (3.5-5.1)
[2020-10-11 08:04] LABS: Albumin Globulin Ratio 0.8 (0.9-2); Bilirubin,Total 0.4 mg/dl (0.2-1); Globulin 3.3 gm/dl (2.5-4.0)
[2020-10-11] MEDS: APIXABAN 5 MG TABLET PO SCH (08:24)
[2020-10-11] MEDS: GABAPENTIN 300 MG CAP PO SCH (08:25)
[2020-10-11] MEDS: METOPROLOL TARTRATE 25 MG TAB PO SCH (08:32)
--- NOTE | 2020-10-11 08:49 | Cardiology Consultation ---
Date of Consultation Patient was admitted to the hospital secondary to a fall after taking too much blood pressure medicine. He was discharged from [facility] on the and took medicine not only from his discharge but also what he was taking before his discharge. He had orthostatic symptoms if he was not sitting or laying down. He did stand up and have a fall and hit his head while on apixaban. This led to his family bring him to the hospital. This morning he is feeling much better he denies any lightheadedness or dizziness. Denies any shortness of breath talking in sentences. He denies any orthopnea. He does have some chest discomfort when he takes a deep breath or if he coughs or sneezes. His appetite remains so-so as would be expected 2 weeks post open heart surgery. He has no lower extremity edema or abdominal distention. He is awake alert and oriented x3 he is in no acute distress. HEENT 2+ carotid upstrokes no evidence of carotid bruits Lungs: Decreased breath sounds in the bases bilaterally no rales rhonchi or wheezing Heart regular rate and rhythm no appreciable murmurs rubs or gallops Abdomen soft nontender nondistended positive bowel sounds Extremities no clubbing cyanosis or edema Psychiatric his affect appeared appropriate Skin his median sternotomy incision and chest tube sites are well-healed without erythema or drainage Cardiac catheterization August 2020 1. Severe three-vessel coronary artery disease -95% proximal LAD, diffuse mid LAD up to 80% 90% proximal large OM 2 Focal 60 to 70% mid RCA (FFR 0.80). 2. Normal intracardiac filling pressure EKG this admission was reviewed sinus rhythm PACs no acute ST-T changes His chest x-ray was reviewed which reveals a small postoperative pleural effusion which is expected His labs from this admission were reviewed Impressions: 1. Hypotension secondary to taking too much blood pressure medicine 2. Status post coronary bypass grafting x3 at [facility] 09/26/2020 3. Normal LV systolic function postoperatively with an EF in the range of 60 to 65% 4 postoperative atrial fibrillation maintaining sinus rhythm 5. Chronic kidney disease stage III with a baseline creatinine of 1.7 6. 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 Diabetes mellitus type 2 8. Hyperlipidemia intolerant of statins on Zetia 9. Hypertriglyceridemia on fenofibrate (we will need to adjust the dose for his renal function in the office in 2 weeks) You can stop his IV fluids which I already did. He can ambulate in the hallway and as long as he ambulates safely he can be discharged home. I would try to simplify his medical regimen from a blood pressure standpoint and would prefer that his blood pressure be actually on the higher side than the lower side at this point. I am already scheduled to see him in the office in 12 days and impressed upon him if he has any issues with his medications or concerns to let us know. He should continue with his prednisone dosing through October 16 and then it can be discontinued. this was not prescribed for pericarditis but rather Salinas's palsy. There was a concern he may have had a stroke while at [facility] but an MRI of his head was negative. From a blood pressure medicine standpoint I would discharge him on metoprolol 25 mg 3 times daily along with lisinopril 5 mg daily. he will remain on apixaban 5 mg twice daily his Zetia 10 mg daily and his fenofibrate. I would not continue his amlodipine for now it can reinitiated as his appetite improves and as we need to add blood pressure medicine as an outpatient. All this was discussed with the nursing staff as well as the primary service October 11, 2020 History of Present Illness Attending Physician: Faith Bush MD Allergies Allergy/AdvReac Type Severity Reaction Status Date / Time niacin Allergy Unknown ARTHRALGIAS Verified 10/10/20 18:07 FROM ADVICOR telithromycin Allergy Unknown ARTHRALGIAS Verified 10/10/20 18:07 FROM ADVICOR atorvastatin AdvReac Intermediate Muscle Pain Verified 10/10/20 18:07 lovastatin AdvReac Intermediate ARTHRALGIAS Verified 10/10/20 18:07 FROM ADVICOR Xksahvw-Uzq-Eau Reductase AdvReac Intermediate Muscle Pain Verified 10/10/20 18:07 Inhibitor STERIODS Allergy Unknown Unknown Uncoded 10/10/20 18:07 Home Medications Medication Instructions Recorded Confirmed Type aspirin 81 mg PO DAILY 08/08/18 10/10/20 History multivitamin 1 tab PO DAILY 08/08/18 10/10/20 History omeprazole 40 mg PO DAILY 08/08/18 10/10/20 History ropinirole 0.25 mg PO HS #0 tab 08/11/18 10/10/20 Rx ezetimibe 10 mg PO DAILY 11/11/19 10/10/20 History fenofibrate nanocrystallized 145 mg PO DAILY 11/11/19 10/10/20 History [Tricor] amlodipine 10 mg PO DAILY 09/18/20 10/10/20 History fluoxetine 10 mg PO DAILY 09/18/20 10/10/20 History acetaminophen [Tylenol Extra 1,000 mg PO Q6H PRN 10/10/20 10/10/20 History Strength] apixaban [Eliquis] 5 mg PO BID 10/10/20 10/10/20 History carboxymethylcellulose sodium 1 drp OPL HS 10/10/20 10/10/20 History [Refresh] cyclobenzaprine 10 mg PO TID PRN 10/10/20 10/10/20 History gabapentin 300 mg PO TID 10/10/20 10/10/20 History lisinopril 5 mg PO DAILY 10/10/20 10/10/20 History metoprolol tartrate 25 mg PO TID 10/10/20 10/10/20 History prednisone 40 mg PO DAILY 10/10/20 10/10/20 History Patient History Medical History CAD (coronary artery disease) CKD (chronic kidney disease) stage 3, GFR 30-59 ml/min Depression DM (diabetes mellitus) GERD (gastroesophageal reflux disease) HTN (hypertension) Hypercholesteremia Hypertriglyceridemia Mini stroke Postoperative atrial fibrillation Presence of arterial stent L leg, unable to relate exact location. Restless leg syndrome TIA (transient ischemic attack) Type II diabetes mellitus Surgical History H/O knee surgery stent behind left knee 2017 H/O vasectomy History of angioplasty of peripheral vessel LLE angiogram with CONSULTANT DIETITIAN popliteal 05/23/2018 Hx of colonoscopy 2017 S/P CABG x 3 Family History Grandfather Colorectal cancer Mother Diabetes Hypertension Brother Stroke Social History Smoking Status: Never smoker Hx Alcohol Use: No Hx Substance Use: No Preferred Language: Malay Communication Ability: Effective Transfer Man Required: No Beliefs That Will Affect Care: None Current Living Situation: Alone current occupational status: retired Other Information That Helps Us Care for You: No Feels Safe at Home: Yes Safety Concerns: Feels Safe At This Time Assistive Devices: Glasses and Hearing Aid - Bilateral Results & Data ([facility]) Vital Signs (Past 12 Hours) Vital Signs Temp Pulse Pulse Resp BP Pulse Ox 10/11/20 07:00 36.5 C 69 18 132/63 98 10/11/20 03:17 36.6 C 68 17 118/75 94 10/10/20 23:22 36.8 C 101 H 18 94/54 L 96 10/10/20 21:45 36.5 C 101 H 20 150/82 H 97
[2020-10-11] MEDS ORDERED: MULTIVITAMIN TAB PO SCH (09:00)
[2020-10-11] MEDS ORDERED: FENOFIBRATE NANOCRYSTALLIZED 145 MG TABLET PO SCH (09:00)
[2020-10-11] MEDS ORDERED: FLUoxetine HCL 10 MG CAP PO SCH (09:00)
[2020-10-11] MEDS ORDERED: ASPIRIN 81 MG ECTAB PO SCH (09:00)
[2020-10-11] MEDS ORDERED: PANTOprazole 40 MG TAB PO SCH (09:00)
[2020-10-11] MEDS ORDERED: EZETIMIBE 10 MG TABLET PO SCH (09:00)
[2020-10-11] MEDS ORDERED: predniSONE 20 MG TAB PO SCH (09:00)
--- NOTE | 2020-10-11 09:50 | XCELERA ---
[id number]
--- NOTE | 2020-10-11 11:26 | Med Student Discharge Summary ---
Date of Service October 11, 2020 Admission HPI Per Admitting Provider This is a 74-year-old male who recently underwent coronary artery bypass grafting [facility]. Patient says that his procedure was performed on September 26, 2020. He notes he was in the hospital for approximately 2 weeks. He reported that his postoperative course was complicated by atrial fibrillation and there is also concern that he may have had a stroke but he notes after further testing this was not the case. He was discharged home on October 09, 2020. He presented to [facility] emergency department after suffering a fall earlier today. Patient says that he became confused with his prescribed medications and thinks he may have taken the incorrect blood pressure medicines. He could not tell me exactly which medicines he took. Prior to falling he says he barely became lightheaded. He said the room was not spinning, he did not suffer any chest pain, he was not short of breath, and he did not experience any palpitations. Denied any strokelike symptoms such as visual loss or extremity weakness. He also did not experience any dysarthria. He presented to the emergency department where CT scan of the head showed that he had no acute intracranial process. Chest x-ray was performed that showed previous median sternotomy, no evidence of pneumonia or CHF, however a small left pleural effusion was noted. Labs revealed a white blood cell count of 13.9, hemoglobin and hematocrit were 11.4 and 33.9, platelet count was noted to be 563,000. Coagulation studies were noted to be normal. Chemistry profile showed sodium was 137 and potassium was 3.9. His BUN and creatinine was noted to be 35 and 1.7. Upon review of records his creatinine was noted to be near baseline. The treating emergency room physician did discuss with the cardiothoracic fellow at [facility]. He noted that there were some changes made in the patient's blood pressure medications and in light of the patient's history felt that he may have taken the incorrect blood pressure medications resulting in the symptoms he experienced. The emergency room physician did report the patient's blood pressure improved with administration of IV fluids. Was further reported that at [facility] they recommended acute inpatient rehab however the patient opted to be discharged home with home rehab. At the time of my exam the patient was resting comfortably in bed in no di stress. Admission Exam (Per Admitting) Constitutional ADMITTING EXAM: Constitutional: well developed and well nourished; no acute distress Eyes: no conjunctival abnormality ENMT: Ears: no hearing impairment Neck: trachea midline Respiratory: normal respiratory effort; no respiratory distress and no labored breathing Breath sounds are decreased at left base Cardiovascular: Rate/Rhythm: regular rate and regular rhythm Gastrointestinal (Abdomen): Percussion/Palpation: abdomen soft; abdomen nontender Musculoskeletal: No calf tenderness. Patient has several well-healing longitudinal incisions on his left lower extremity from saphenous vein harvest sites Skin: normal turgor Neurologic: CN's II-XI intact bilaterally and moves all extremities Psychiatric: A+Ox3, euthymic affect DISCHARGE EXAM: General: well developed, well nourished, NAD, lying comfortably in hospital bed, conversational Respiratory: Clear to auscultation b/l, no wheezes, rhonchi or rales, no labored breathing with good air movement Cardiovascular: RRR, no murmurs, gallops or rubs, no lower extremity edema, no JVD Abdomen: Soft, nontender, nondistended Skin: warm, dry, midsternal vertical incisions clean dry and intact Neuro: Alert and oriented X3 Psych: speech nl rate and volume, thought process linear, appropriate affect Discharge Data Consultations 10/10/20 18:16 ED Decision to Admit Stat 10/10/20 21:59 Consult Case Management - Discharge Planning Stat 10/10/20 22:59 Consult Case Management - Discharge Planning Routine 10/10/20 23:36 Consult Cardiology Routine Hospital Course (1) Hypotension: Mr. Antonio is a 50-gd[age]-yto-male with a pmhx of multivessel CAD (s/p CABG 09/25/20), post-op afib, [place] palsy (dx 10/07) HTN, HLD, TIA CKD stage III, DM II, GERD, depression, and RLS who presented on 10/11 for an episode of dizziness and a fall (no LOC) at home most likely secondary to a hypotensive episode from confusion over recent change to blood pressure medications. # Dizziness/Fall -When pt got home from [facility] he had trouble opening his new pill bottles so ended up taking his old medications. -D/c'd from [facility] on 10/09 after prolonged hospital stay for CABG after complications where he developed afib and concerns of stroke though MRI was negative. -Upon d/c from [facility] his Lisinopril was changed from 10 mg->5mg and Nitroglycerin was stopped. Pt was also d/c'd with Metoprolol 25 mg TID, Amlodipine 10 mg, Eliquis 5 mg BID, and Asprin 81 mg, Prednisone 40 mg X7 days (started on 10/07 for [place] Palsy s/p CABG) -In the ED, he was found to be hypotensive at 94/54, and had afib which converted to normal sinus rhythm overnight. He was given fluids and is now normotensive. -There was initial concern of pericarditis but clinical sx are not suggestive of this and ECHO was done which should no effusion. EKG sinus rhythm PACs no acute ST-T changes -COVID negative, X-ray small effusion which expected s/p CABG, elevated lipases but no abdominal sx and downtrending. WBC mildly elevated. -Cardiology was consulted and recommended to hold Amlodipine for now given hypotensive episode. Will reassess in outpatient Cardiology visit. -Pt feeling well this am with hypotensive sx resolved (10/11) and is able to ambulate -Daughter has set up home nursing and PT/OT who can help with administering medication -To follow up with Dr. Brooks and Dr. Small as outpatient. Pt. has scheduled appointments. #Afib Developed afib s/p CABG. Found to have afib on this admission that converted to sinus rhythm overnight (10/10) -Continue Metoprolol 25 mg TID and Eliquis 5 mg BID Discharge Plan Discharge Items Patient Disposition: Home - Home Health Services Reason For Visit: SYNCOPE Discharge Diagnosis: syncope Activity: Per Instructions section Non-emergency contact: Primary Care Provider and [facility] Call non-emergency contact if: you have any medication questions and your symptoms worsen Follow-up/Referrals: Bebo Small DO [Physician] - (Scheduled for appointment in 12 days) Alejandrina Brooks DO [Primary Care Provider] - (Scheduled for 10/16/20) Diet: Carb Consistent or DM2 and Heart Healthy Addtl Attending Provider Instructions: You were admitted to the hospital for lightheadedness and syncope. You were held overnight to monitor your heart rate and blood pressure since you just had heart surgery not too long ago. Some of your blood pressure medications were held, and your blood pressure improved. It is likely that you passed out at home due to blood pressure medications, so we made some changes to your medicines for your discharge. You will continue your metoprolol, 25 milligrams every 8 hours. You will continue your lisinopril 5 milligrams once daily in the morning. You should not take your amlodipine until you talk about it with Dr. Brooks and Dr. Small. Please have the home health nurses check your blood pressure and check this document for your medication list for discharge. Make sure you stay hydrated and eat a Heart Healthy diet at home to help prevent low blood pressure when standing and walking. You should continue your prednisone 40 milligrams daily for your Salinas's palsy; this medication will stop on 10/16. You will continue your aspirin and Eliquis medications. Of note, you did have an elevated lipase while admitted, which can be a marker of pancreas inflammation. You did not have any belly pain or GI issues, so this is something that your primary care doctor can follow up on when you see her on the . If you have recurrence of your symptoms, or chest pain, trouble breathing, ple ase call your [facility] and seek urgent medical evaluation. Pending Studies at Discharge: No Stand-Alone Forms: [facility] [employer], Smoking Cessation Medications and DC Order Prescriptions: Continued fluoxetine 10 mg Capsule 10 mg PO DAILY RF: 0 cyclobenzaprine 10 mg Tablet 10 mg PO TID PRN (Reason: MUSCLE SPASMS) RF: 0 prednisone 20 mg tablet 40 mg PO DAILY RF: 0 acetaminophen [Tylenol Extra Strength] 500 mg Tablet 1,000 mg PO Q6H PRN (Reason: Pain) RF: 0 gabapentin 300 mg Capsule 300 mg PO TID RF: 0 lisinopril 5 mg Tablet 5 mg PO DAILY RF: 0 carboxymethylcellulose sodium 1 % Drops, Liquid Gel 1 drp OPL HS RF: 0 metoprolol tartrate 25 mg Tablet 25 mg PO TID RF: 0 Eliquis 5 mg Tablet 5 mg PO BID RF: 0 multivitamin Tablet 1 tab PO DAILY RF: 0 aspirin 81 mg Tablet,Delayed Release (Dr/Ec) 81 mg PO DAILY RF: 0 omeprazole 20 mg capsule,delayed release(DR/EC) 40 mg PO DAILY RF: 0 ropinirole 0.25 mg tablet 0.25 mg PO HS Qty: 0 RF: 0 ezetimibe 10 mg tablet 10 mg PO DAILY RF: 0 fenofibrate nanocrystallized [Tricor] 145 mg tablet 145 mg PO DAILY RF: 0 Discontinued amlodipine 10 mg Tablet 10 mg PO DAILY RF: 0 Discharge Orders: Discharge Order (Routine); Ordered 10/11/20 Ordered By: Sonia Joseph Admission Data Admit Date/Time: 10/10/20 19:18 Attending Provider: Faith Bush Admit Provider: Geneva Hernandez Primary Care Provider: Alejandrina Brooks Other Providers: Geneva Hernandez ; Bebo Small Other Interventions: Discharge Summary Assessment (RN) Last Done: 10/11/20 11:05 Supervising Attestation Medical Student Supervision Note: I was personally present during medical student patient encounter and independently interviewed and examined the patient and verified the morrison history and physical, reviewed labs and image studies, discussed the case with Mary Silva and agree with the findings and care plan. Feeling at baseline on discharge. Ambulated with walker - baseline before admission. Transient a fib episode. converted spontaneously - continue b suyapa and anticoagulation. d/susi amlodipine to avoid hypotension.
[2020-10-11] MEDS ORDERED: ARTIFICIAL TEARS OPL SCH (21:00)
--- NOTE | 2020-10-11 22:43 | Electrocardiogram Report ---
Test Reason : Blood Pressure : / mmHG Vent. Rate : 091 BPM Atrial Rate : 091 BPM P-R Int : 144 ms QRS Dur : 086 ms QT Int : 360 ms P-R-T Axes : 045 -10 067 degrees QTc Int : 443 ms Sinus rhythm with Premature supraventricular complexes Possible Left atrial enlargement Abnormal ECG When compared with ECG of 23-SEP-2020 04:21, Premature supraventricular complexes are now Present Vent. rate has increased BY 30 BPM T wave amplitude has increased in Anterior leads Confirmed by Jayesh Randolph ([id number]) on 10/11/2020 10:42:59 PM Referred By: REFERRED SELF Confirmed By:Jayesh Randolph
[2020-10-12] MEDS ORDERED: lisinopril 5 MG TAB PO SCH (09:00)
== END 2020-10-11 12:03 | disposition home health service (06) ==
LOC: 2S 16:48 → ED 16:48 → SUATTDRO 19:18 → 2S 21:20

== ENCOUNTER 2020-10-21 20:12 | Observation (INO) ==
--- NOTE | 2020-10-21 20:19 | Emergency Department Note ---
Impression & Plan Atrial fibrillation with rapid ventricular response, Acute dehydration ED Provider Note NAME: CAIN NAZARIO AGE: 74 SEX: M : 1945 ARRIVES VIA: Ambulance INFORMANT: Patient, ED PROVIDER(S): Severo Garcia MD Chief Complaint: Fall, dizziness HPI: Patient does present after some dizziness and associated fall just prior to arrival. Patient states that he had taken his evening medicines and eventually got dizzy sometime later to where he had a fall striking the left side of his head. Patient did have a recent CABG completed at [facility] at the end of August. The patient denies any chest pains but has had some shortness of breath is felt increasing thirst. Patient denies any nausea vomiting or chest pains. The patient denies lower extremity swelling. Patient does admit to not feeling so well over the last 2 to 3 days. The patient denies loss of taste or smell. Patient denies any recent travel with the exception of his time at [place] for his procedure. Patient denies any palpitations. The patient states he has been compliant with his medications. Patient did have an a recent admission on October 10 and subsequent discharged on the due to concern for fall and lightheadedness. Patient did have an echocardiogram completed which showed normal LV function with some mild aortic valve sclerosis. No evidence of any pericardial effusion at that time. Patient was to hold his amlodipine at the time of discharge. Patient only recently developed A. fib status post CABG currently anticoagulated on Eliquis 5 mg twice dailyto be taken metoprolol 25 3 times daily. The patient did not take his evening medications. ROS: See HPI for pertinent positives and negatives. A total of 10 systems were reviewed and otherwise negative. Past medical history: See below Surgical history: See below Social history: See below Physical Exam: GENERAL: Mildly ill in appearance, wearing glasses and a mask. EYE EXAM: Normal conjunctiva. PERRL, no anisocoria and EOM's grossly intact w/o pain. Head: Abrasion to left side of head no active bleeding. Chest: Healing midline sternotomy scar without drainage crepitus erythema or fluctuance. NECK: Supple, no nuchal rigidity, no adenopathy, non-tender. No signs of meningismus. LUNGS: Clear to auscultation. Normal chest wall mechanics. HEART: Tachycardic and irregularly irregular, no MRG. ABDOMEN: Abdomen soft, non-tender, normo-active bowel sounds, no masses, no rebound or guarding. BACK: No CVA TTP. SKIN: No rashes and no bruising. UPPER EXTREMITIES: Upper extremities are grossly normal. LOWER EXTREMITIES: Grossly normal, no edema. Negative Homans' sign bilaterally. NEURO EXAM: A&O x3, cranial nerves II-XII grossly intact, normal speech, moves all 4 extremities on command w/o issue. Differential diagnoses: Benign positional vertigo, dehydration, hypovolemia, anemia, tumor, infection, hypoglycemia, electrolyte abnormalities, cardiac sources, intracerebral event, toxicologic, neurologic, as well as other pathologies. Course: Patient was seen and evaluated the bedside. Full history physical exam was performed. EKG: Indication: Dizziness A. fib with RVR, rate 112, normal QRS. Normal axis. Imaging Studies: Radiology results as stated below per my review in the radiologist's interpretation: CT OF THE HEAD WITHOUT CONTRAST CLINICAL HISTORY: s/p fall to L side COMPARISON STUDY: Head CT October 10, 2020. CT DOSE: 537.48 mGy.cm TECHNIQUE: Helical axial images of the head were obtained without IV contrast. Automated exposure control was utilized for the study. A dose lowering technique was utilized adhering to the principles of ALARA. FINDINGS: No acute intracranial hemorrhage, midline shift or mass effect is present. The ventricular system is unremarkable. The basal cisterns are patent. No extra-axial collections are present. White matter hypodensities are unchanged. There are no findings to suggest acute dural sinus thrombosis or acute territorial infarct. No significant calvarial abnormalities are present. Visualized portions of the sinuses and mastoid air cells are clear. IMPRESSION: 1. No acute intracranial findings. No change in appearance of the brain. 2. No calvarial fracture. ACT 112: Negative or not required by law. Electronically signed by: Ronny Sanderson M.D. 10/21/2020 9:09 PM Dictated: 10/21/202102 Transcribed: 10/21/202102 Cardiac monitoring: An order was placed for continuous cardiac monitoring. The monitor shows a rate of 115 with irregularly regular rhythm. MDM: Patient was seen due to concern for dizziness and fall. Blood work is obtained the patient was given IV fluids. EKG troponin BMP obtained along with CT the head. Patient's EKG does show A. fib with RVR. Given the patient's feeling of thirst and clear breath sounds with no lower extremity swelling the patient was ordered IV fluids. The patient does have white count of 18's the patient was empirically ordered antibiotics with a lactate. Chest x-ray appears unchanged from prior. Patient does have very mild LUDWIN but kidney function at virtual baseline. Troponin is detectable but not elevated. BNP is elevated but the patient clinically does appear dry. This may be related to the patient's A. fib. Lactate of 2.6. Flu RSV and Covid negative. Did speak the on-call hospitalist Dr. Velez. The patient was admitted to the medicine service. Upon reassessment the patient was looking and feeling improved. Medicine team has started the patient on amiodarone. Past Med/Surg History Medical History Accidental drug overdose CAD (coronary artery disease) CKD (chronic kidney disease) stage 3, GFR 30-59 ml/min Depression DM (diabetes mellitus) GERD (gastroesophageal reflux disease) HTN (hypertension) Hypercholesteremia Hypertriglyceridemia Hypotension Mini stroke Postoperative atrial fibrillation Presence of arterial stent L leg, unable to relate exact location. Restless leg syndrome TIA (transient ischemic attack) Type II diabetes mellitus Surgical History H/O knee surgery stent behind left knee 2017 H/O vasectomy History of angioplasty of peripheral vessel LLE angiogram with [employer] popliteal 05/23/2018 Hx of colonoscopy 2017 S/P CABG x 3 Family History Grandfather Colorectal cancer Mother Diabetes Hypertension Brother Stroke Social History Smoking Status: Former smoker Tobacco Type: Cigars Hx Alcohol Use: No Hx Substance Use: No Preferred Language: Sinhala Communication Ability: Effective Medical Researcher Required: No Beliefs That Will Affect Care: None Current Living Situation: Alone current occupational status: retired Feels Safe at Home: Yes Assistive Devices: Glasses and Hearing Aid - Bilateral Allergies Allergies Allergy/AdvReac Type Severity Reaction Status Date / Time niacin Allergy Unknown ARTHRALGIAS Verified 10/10/20 18:07 FROM ADVICOR telithromycin Allergy Unknown ARTHRALGIAS Verified 10/10/20 18:07 FROM ADVICOR atorvastatin AdvReac Intermediate Muscle Pain Verified 10/10/20 18:07 lovastatin AdvReac Intermediate ARTHRALGIAS Verified 10/10/20 18:07 FROM ADVICOR Iklamis-Cwp-Grd Reductase AdvReac Intermediate Muscle Pain Verified 10/10/20 18:07 Inhibitor STERIODS Allergy Unknown Unknown Uncoded 10/10/20 18:07 Home Meds Home Medications Medication Instructions Recorded Confirmed aspirin 81 mg PO DAILY 08/08/18 10/21/20 multivitamin 1 tab PO DAILY 08/08/18 10/21/20 omeprazole 40 mg PO DAILY 08/08/18 10/21/20 ezetimibe 10 mg PO DAILY 11/11/19 10/21/20 fenofibrate nanocrystallized 145 mg PO DAILY 11/11/19 10/21/20 [Tricor] fluoxetine 10 mg PO DAILY 09/18/20 10/21/20 Eliquis 5 mg PO BID 10/10/20 10/21/20 acetaminophen [Tylenol Extra 1,000 mg PO Q6H PRN 10/10/20 10/21/20 Strength] carboxymethylcellulose sodium 1 drp OPL HS 10/10/20 10/21/20 cyclobenzaprine 10 mg PO TID PRN 10/10/20 10/21/20 gabapentin 300 mg PO TID 10/10/20 10/21/20 lisinopril 5 mg PO DAILY 10/10/20 10/21/20 metoprolol tartrate 25 mg PO TID 10/10/20 10/21/20 Previous Rx's Medication Instructions Recorded ropinirole 0.25 mg PO HS #0 tab 08/11/18 Results & Data (ED) Vital Signs Vital Signs - 24 hr 10/21/20 20:20 10/21/20 20:22 10/21/20 20:25 Temperature Temperature Source Pulse Rate 129 H 105 H 139 H Pulse Rate from SpO2 Sensor 100 H Pulse Rhythm Irregular Respiratory Rate 23 33 H 25 H Respiratory Effort / Characteristics Spontaneous Short of Breath SOB on Exertion Respiratory Pattern Regular Blood Pressure 101/70 101/70 Blood Pressure Mean 80 80 Blood Pressure Position Lying Pulse Oximetry 99 99 Oxygen Delivery Method Room Air Room Air Room Air Sepsis Recent Fever Within 48 Hours No Sepsis New/Unexplained Change in Mental Status N/A Sepsis Action Taken by Nursing Physician Notified 10/21/20 20:28 10/21/20 20:30 10/21/20 20:40 Temperature Temperature Source Pulse Rate 120 H 126 H Pulse Rate from SpO2 Sensor 90 114 H Pulse Rhythm Respiratory Rate 34 H 35 H Respiratory Effort / Characteristics Respiratory Pattern Blood Pressure Blood Pressure Mean Blood Pressure Position Pulse Oximetry 99 99 99 Oxygen Delivery Method Room Air Room Air Room Air Sepsis Recent Fever Within 48 Hours Sepsis New/Unexplained Change in Mental Status Sepsis Action Taken by Nursing 10/21/20 20:50 10/21/20 21:03 10/21/20 21:10 Temperature Temperature Source Pulse Rate 86 119 H 132 H Pulse Rate from SpO2 Sensor 102 H Pulse Rhythm Respiratory Rate 33 H 15 32 H Respiratory Effort / Characteristics Respiratory Pattern Blood Pressure Blood Pressure Mean Blood Pressure Position Pulse Oximetry 99 Oxygen Delivery Method Room Air Room Air Room Air Sepsis Recent Fever Within 48 Hours Sepsis New/Unexplained Change in Mental Status Sepsis Action Taken by Nursing 10/21/20 21:20 10/21/20 21:25 10/21/20 21:30 Temperature Temperature Source Pulse Rate 88 145 H 95 H Pulse Rate from SpO2 Sensor 87 117 H 73 Pulse Rhythm Respiratory Rate 16 33 H 26 H Respiratory Effort / Characteristics Respiratory Pattern Blood Pressure 116/82 128/77 Blood Pressure Mean 93 94 Blood Pressure Position Pulse Oximetry 99 100 99 Oxygen Delivery Method Room Air Room Air Room Air Sepsis Recent Fever Within 48 Hours Sepsis New/Unexplained Change in Mental Status Sepsis Action Taken by Nursing 10/21/20 21:31 10/21/20 22:00 10/21/20 22:01 Temperature Temperature Source Pulse Rate 82 127 H 118 H Pulse Rate from SpO2 Sensor 82 122 H 110 H Pulse Rhythm Respiratory Rate 31 H 24 24 Respiratory Effort / Characteristics Respiratory Pattern Blood Pressure 119/88 Blood Pressure Mean 98 Blood Pressure Position Pulse Oximetry 99 99 99 Oxygen Delivery Method Sepsis Recent Fever Within 48 Hours Sepsis New/Unexplained Change in Mental Status Sepsis Action Taken by Nursing 10/21/20 22:13 10/21/20 22:30 10/21/20 22:31 Temperature 36.4 C L Temperature Source Oral Pulse Rate 78 124 H Pulse Rate from SpO2 Sensor 80 116 H Pulse Rhythm Respiratory Rate 28 H 24 Respiratory Effort / Characteristics Respiratory Pattern Blood Pressure 123/74 Blood Pressure Mean 90 Blood Pressure Position Pulse Oximetry 100 99 Oxygen Delivery Method Sepsis Recent Fever Within 48 Hours Sepsis New/Unexplained Change in Mental Status Sepsis Action Taken by Nursing 10/21/20 23:00 10/21/20 23:01 10/21/20 23:30 Temperature Temperature Source Pulse Rate 120 H 108 H 130 H Pulse Rate from SpO2 Sensor 93 H 110 H 120 H Pulse Rhythm Respiratory Rate 25 H 23 22 Respiratory Effort / Characteristics Respiratory Pattern Blood Pressure 121/63 124/87 Blood Pressure Mean 82 99 Blood Pressure Position Pulse Oximetry 100 100 98 Oxygen Delivery Method Sepsis Recent Fever Within 48 Hours Sepsis New/Unexplained Change in Mental Status Sepsis Action Taken by Usp Medications Current Medication List: was personally reviewed by me Laboratory Data Attestation: I reviewed the patient's lab results. Result diagrams: 10/21/20 20:44 10/21/20 20:44 Lab Results 10/21/20 10/21/20 10/21/20 Range/Units 20:44 20:44 20:44 WBC 18.47 H (4.8-10.8) K/uL RBC 4.72 (4.7-6.1) M/uL Hgb 14.2 (14.0-18.0) g/dL Hct 41.9 L (42-52) % MCV 88.8 (80-100) fL MCH 30.1 (25-34) pg MCHC 33.9 (32-36) g/dL RDW Std Deviation 45.9 (36.4-46.3) fL RDW Coeff of Brice 14.2 (11.5-14.5) % Plt Count 270 (130-400) K/uL MPV 12.0 H (7.4-10.4) fL Immature Gran % (Auto) 1.0 % Neut % (Auto) 79.5 % Lymph % (Auto) 11.4 % Lucas % (Auto) 6.7 % Eos % (Auto) 1.2 % Baso % (Auto) 0.2 % Neut # (Auto) 14.69 H (1.4-6.5) K/uL Lymph # (Auto) 2.10 (1.2-3.4) K/uL Lucas # (Auto) 1.23 H (0.11-0.59) K/uL Eos # (Auto) 0.23 (0-0.5) K/uL Baso # (Auto) 0.04 (0-0.2) K/uL Immature Gran # (Auto) 0.18 H (0.00-0.02) K/uL PT 11.9 (9.0-12.0) Seconds INR 1.1 (0.9-1.1) Sodium 135 L (136-145) mmol/L Potassium 4.0 (3.5-5.1) mmol/L Chloride 103 (98-107) mmol/L Carbon Dioxide 21 (21-32) mmol/L Anion Gap 11.0 (3-11) BUN 28 H (7-18) mg/dl Creatinine 1.95 H (0.6-1.4) mg/dl Est Cr Clr Drug Dosing 31.1 ml/min Est GFR ( Amer) 38.2 Est GFR (Non-Af Amer) 32.9 BUN/Creatinine Ratio 14.3 (10-20) Glucose 154 H (70-99) mg/dl Lactate (0.4-2.0) mmol/L Calcium 9.4 (8.5-10.1) mg/dl Phosphorus 2.9 (2.5-4.9) mg/dl Magnesium 2.0 (1.8-2.4) mg/dl Total Bilirubin 0.5 (0.2-1) mg/dl AST 19 (15-37) U/L ALT 37 (12-78) U/L Alkaline Phosphatase 110 (45-117) U/L Troponin I 0.026 (0-0.045) ng/ml NT-Pro-B Natriuret Pep 2261 H (0-900) pg/ml Total Protein 7.2 (6.4-8.2) gm/dl Albumin 3.5 (3.4-5.0) gm/dl Globulin 3.7 (2.5-4.0) gm/dl Albumin/Globulin Ratio 1.0 (0.9-2) TSH 2.150 (0.300-4.500) uIu/ml COVID-19 Eval Order SARS-CoV-2 (PCR) (Negative) Influenza Type A (PCR) (Neg) Influenza Type B (PCR) (Neg) RSV (RT-PCR) (Neg) 10/21/20 10/21/20 10/21/20 Range/Units 21:27 21:27 21:36 WBC (4.8-10.8) K/uL RBC (4.7-6.1) M/uL Hgb (14.0-18.0) g/dL Hct (42-52) % MCV (80-100) fL MCH (25-34) pg MCHC (32-36) g/dL RDW Std Deviation (36.4-46.3) fL RDW Coeff of Brice (11.5-14.5) % Plt Count (130-400) K/uL MPV (7.4-10.4) fL Immature Gran % (Auto) % Neut % (Auto) % Lymph % (Auto) % Lucas % (Auto) % Eos % (Auto) % Baso % (Auto) % Neut # (Auto) (1.4-6.5) K/uL Lymph # (Auto) (1.2-3.4) K/uL Lucas # (Auto) (0.11-0.59) K/uL Eos # (Auto) (0-0.5) K/uL Baso # (Auto) (0-0.2) K/uL Immature Gran # (Auto) (0.00-0.02) K/uL PT (9.0-12.0) Seconds INR (0.9-1.1) Sodium (136-145) mmol/L Potassium (3.5-5.1) mmol/L Chloride (98-107) mmol/L Carbon Dioxide (21-32) mmol/L Anion Gap (3-11) BUN (7-18) mg/dl Creatinine (0.6-1.4) mg/dl Est Cr Clr Drug Dosing ml/min Est GFR ( Amer) Est GFR (Non-Af Amer) BUN/Creatinine Ratio (10-20) Glucose (70-99) mg/dl Lactate 2.6 H* (0.4-2.0) mmol/L Calcium (8.5-10.1) mg/dl Phosphorus (2.5-4.9) mg/dl Magnesium (1.8-2.4) mg/dl Total Bilirubin (0.2-1) mg/dl AST (15-37) U/L ALT (12-78) U/L Alkaline Phosphatase (45-117) U/L Troponin I (0-0.045) ng/ml NT-Pro-B Natriuret Pep (0-900) pg/ml Total Protein (6.4-8.2) gm/dl Albumin (3.4-5.0) gm/dl Globulin (2.5-4.0) gm/dl Albumin/Globulin Ratio (0.9-2) TSH (0.300-4.500) uIu/ml COVID-19 Eval Order CovFluRsv at [facility] SARS-CoV-2 (PCR) NEGATIVE (Negative) Influenza Type A (PCR) Negative (Neg) Influenza Type B (PCR) Negative (Neg) RSV (RT-PCR) Negative (Neg) Administered Medications Amiodarone HCl/Dextrose (Nexterone / D5w) 360 mg in 200 mls @ 33.333 mls/hr IV ONE ONE Stop: 10/22/20 05:44 Last Admin: 10/21/20 23:44 Dose: 33.3 mls/hr Documented by: [id number] Cosigned by: [id number] Discontinued Medications Sodium Chloride (Nss) 500 mls @ 999 mls/hr IV .Q31M RUPINDER Stop: 10/21/20 21:00 Last Infusion: 10/21/20 23:22 Dose: 0 mls/hr Documented by: [id number] Admin: 10/21/20 22:43 Dose: 999 mls/hr Documented by: [id number] Vancomycin HCl 2,000 mg/ (Sodium Chloride) 540 mls @ 200 mls/hr IV NOW ONE Stop: 10/21/20 23:42 Last Admin: 10/21/20 22:42 Dose: 200 mls/hr Documented by: [id number] Piperacillin Sod/Tazobactam Sod (Zosyn) 4.5 gm in 120 mls @ 240 mls/hr IV NOW ONE Stop: 10/21/20 21:30 Last Infusion: 10/21/20 22:53 Dose: 0 mls/hr Documented by: [id number] Admin: 10/21/20 22:11 Dose: 240 mls/hr Documented by: [id number] Sodium Chloride (Nss 1000ml) 1,000 mls @ 999 mls/hr IV .Q1H1M ONE Stop: 10/21/20 22:01 Last Infusion: 10/21/20 22:39 Dose: 0 mls/hr Documented by: [id number] Admin: 10/21/20 21:32 Dose: 999 mls/hr Documented by: [id number] Sodium Chloride (Nss) 500 mls @ 999 mls/hr IV .Q31M ONE Stop: 10/21/20 21:31 Last Infusion: 10/21/20 23:22 Dose: 0 mls/hr Documented by: [id number] Admin: 10/21/20 22:43 Dose: 999 mls/hr Documented by: [id number] Amiodarone HCl/Dextrose (Nexterone / D5w) 150 mg in 100 mls @ 600 mls/hr IV NOW STA Stop: 10/21/20 23:44 Last Admin: 10/21/20 23:44 Dose: 600 mls/hr Documented by: [id number] Cosigned by: [id number] Discharge Plan Visit Data Chief Complaint: Fall Stated Complaint: FALL/DIZZY ED Provider: Severo Garcia Discharge Problem: Atrial fibrillation with rapid ventricular response, Acute dehydration Forms Stand Alone Forms: [facility] Prescriptions Prescriptions: No Action fluoxetine 10 mg Capsule 10 mg PO DAILY RF: 0 cyclobenzaprine 10 mg Tablet 10 mg PO TID PRN (Reason: Muscle Spasm) RF: 0 acetaminophen [Tylenol Extra Strength] 500 mg Tablet 1,000 mg PO Q6H PRN (Reason: Pain) RF: 0 gabapentin 300 mg Capsule 300 mg PO TID RF: 0 lisinopril 5 mg Tablet 5 mg PO DAILY RF: 0 carboxymethylcellulose sodium 1 % Drops, Liquid Gel 1 drp OPL HS RF: 0 metoprolol tartrate 25 mg Tablet 25 mg PO TID RF: 0 Eliquis 5 mg Tablet 5 mg PO BID RF: 0 multivitamin Tablet 1 tab PO DAILY RF: 0 aspirin 81 mg Tablet,Delayed Release (Dr/Ec) 81 mg PO DAILY RF: 0 omeprazole 20 mg capsule,delayed release(DR/EC) 40 mg PO DAILY RF: 0 ropinirole 0.25 mg tablet 0.25 mg PO HS Qty: 0 RF: 0 ezetimibe 10 mg tablet 10 mg PO DAILY RF: 0 fenofibrate nanocrystallized [Tricor] 145 mg tablet 145 mg PO DAILY RF: 0
[2020-10-21] MEDS ORDERED: SODIUM CHLORIDE 0.9% 500 ML IV SCH (20:30)
[2020-10-21 20:54] LABS: Basophils # (auto) 0.04 K/uL (0-0.2); Basophils % (auto) 0.2 %; Eosinophils # (auto) 0.23 K/uL (0-0.5); Eosinophils % (auto) 1.2 %; Hematocrit (blood only) 41.9 % (42-52); Hemoglobin 14.2 g/dL (14.0-18.0); Immature Granulocytes # (auto) 0.18 K/uL (0.00-0.02); Lymphocytes % (auto) 11.4 %; Mean Corpuscular Hemoglobin 30.1 pg (25-34); Mean Corpuscular Hgb Conc 33.9 g/dL (32-36); Mean Corpuscular Volume 88.8 fL (80-100); Monocytes # (auto) 1.23 K/uL (0.11-0.59); Monocytes % (auto) 6.7 %; Neutrophils # (auto) 14.69 K/uL (1.4-6.5); Neutrophils % (auto) 79.5 %; Platelet Count 270 K/uL (130-400); RDW Coefficient of Variation 14.2 % (11.5-14.5); RDW Standard Deviation 45.9 fL (36.4-46.3); Red Blood Count 4.72 M/uL (4.7-6.1); White Blood Count 18.47 K/uL (4.8-10.8)
[2020-10-21] MEDS ORDERED: PIPERACILL/TAZOBAC CONSULT ACTIVE PRN (21:01)
[2020-10-21] MEDS ORDERED: PIPERACILLIN/TAZOBACTAM 4.5 GM/120 ML BAG IV ONE (21:01)
[2020-10-21] MEDS ORDERED: VANCOMYCIN HCL 2,000 MG in SODIUM CHLORIDE 0.9% 500 ML IV ONE (21:01)
[2020-10-21] MEDS ORDERED: VANCOMYCIN CONSULT ACTIVE PRN (21:01)
[2020-10-21] MEDS ORDERED: SODIUM CHLORIDE 0.9% 1000ML 1,000 ML IV ONE (21:01)
[2020-10-21] MEDS ORDERED: SODIUM CHLORIDE 0.9% 500 ML IV ONE (21:01)
[2020-10-21 21:06] LABS: INR 1.1 (0.9-1.1); Prothrombin Time 11.9 Seconds (9.0-12.0)
--- NOTE | 2020-10-21 21:10 | CT Scan Report ---
CT OF THE HEAD WITHOUT CONTRAST CLINICAL HISTORY: s/p fall to L side COMPARISON STUDY: Head CT October 10, 2020. CT DOSE: 537.48 mGy.cm TECHNIQUE: Helical axial images of the head were obtained without IV contrast. Automated exposure con trol was utilized for the study. A dose lowering technique was utilized adhering to the principles o f ALARA. FINDINGS: No acute intracranial hemorrhage, midline shift or mass effect is present. The ventricular system is unremarkable. The basal cisterns are patent. No extra-axial collections are present. White matter hypodensities are unchanged. There are no findings to suggest acute dural sinus thrombosis or acute territorial infarct. No significant calvarial abnormalities are present. Visualized portions of the sinuses and mastoid air cells are clear. IMPRESSION: 1. No acute intracranial findings. No change in appearance of the brain. 2. No calvarial fracture. ACT 112: Negative or not required by law. Electronically signed by: Ronny Sanderson M.D. 10/21/2020 9:09 PM
[2020-10-21 21:18] LABS: Albumin Level 3.5 gm/dl (3.4-5.0); BUN Creatinine Ratio 14.3 (10-20); Calcium 9.4 mg/dl (8.5-10.1); Creatinine Clr Calc Pharmacy 31.1 ml/min; Est GFR (African American) 38.2; Est GFR (Non-African American) 32.9
[2020-10-21 21:28] LABS: Bilirubin,Total 0.5 mg/dl (0.2-1); Globulin 3.7 gm/dl (2.5-4.0); Phosphorus 2.9 mg/dl (2.5-4.9); Thyroid Stimulating Hormone 2.15 uIu/ml (0.300-4.500); Total Protein 7.2 gm/dl (6.4-8.2); Troponin I 0.026 ng/ml (0-0.045)
[2020-10-21 22:20] LABS: Influenza A virus by PCR Negative (Neg); Influenza B virus by PCR Negative (Neg); RSV by PCR Negative (Neg); SARS CoV2 RNA(COVID-19) InHosp NEGATIVE (Negative)
--- NOTE | 2020-10-21 23:18 | History & Physical Report ---
Date of Service October 21, 2020 Assessment & Plan (1) Atrial flutter with rapid ventricular response: Atrial flutter with rapid ventricular response noted in ED tonight/postop A. fib status post CABG x3/CAD/hypertension- Patient had been placed on metoprolol tartrate 25 mg p.o. 3 times daily for rate control for postop A. fib in August. We will continue with hold parameters. Hold lisinopril 5 mg p.o. daily Patient symptoms of generalized weakness since surgery, and tendency toward fal ling, may be secondary to being in and out of atrial flutter with RVR. Place on amiodarone bolus then drip per protocol. Continue Eliquis 5 mg p.o. twice daily and aspirin 81 mg daily We will consult cardiology in a.m. Present on Admission?: Yes (2) Postoperative atrial fibrillation: See above Present on Admission?: Yes (3) S/P CABG x 3: See above Status post surgery end of August Present on Admission?: Yes (4) CAD (coronary artery disease): See above Present on Admission?: Yes (5) HTN (hypertension): See above Present on Admission?: Yes (6) Acute dehydration: Received 1.5 L normal saline in ED. Present on Admission?: Yes (7) Hypertriglyceridemia: Continue Zetia and TriCor Present on Admission?: Yes (8) GERD (gastroesophageal reflux disease): Change omeprazole to pantoprazole per formulary interchange Present on Admission?: Yes History of Present Illness Chief Complaint: The patient presents to the emergency department with generalized weakness, dizziness and a fall just prior to arrival. Primary Care Provider: Alejandrina Brooks DO The patient is a 74-year-old male with a past medical history including atrial fibrillation with RVR that began status post CABG, status post CABG x3, depression, TIA, restless leg syndrome, hypertriglyceridemia, diabetes mellitus, CKD stage III, CAD, GERD and hypertension. The patient was admitted for similar symptoms from October 10-October 11, 2020, and at that time was thought to be due to confusion regarding timing of medications. While in the emergency department, it was noted that patient was in and out of atrial flutter with RVR with rates variable from 80-140, and decision was made to start the patient on amiodarone bolus/drip at that time. Patient was COVID-19 negative while in the ED this evening. Allergies Allergy/AdvReac Type Severity Reaction Status Date / Time niacin Allergy Unknown ARTHRALGIAS Verified 10/10/20 18:07 FROM ADVICOR telithromycin Allergy Unknown ARTHRALGIAS Verified 10/10/20 18:07 FROM ADVICOR atorvastatin AdvReac Intermediate Muscle Pain Verified 10/10/20 18:07 lovastatin AdvReac Intermediate ARTHRALGIAS Verified 10/10/20 18:07 FROM ADVICOR Qmbbowm-Eba-Rej Reductase AdvReac Intermediate Muscle Pain Verified 10/10/20 18:07 Inhibitor STERIODS Allergy Unknown Unknown Uncoded 10/10/20 18:07 Home Medications Medication Instructions Recorded Confirmed Type aspirin 81 mg PO DAILY 08/08/18 10/21/20 History multivitamin 1 tab PO DAILY 08/08/18 10/21/20 History omeprazole 40 mg PO DAILY 08/08/18 10/21/20 History ropinirole 0.25 mg PO HS #0 tab 08/11/18 10/21/20 Rx ezetimibe 10 mg PO DAILY 11/11/19 10/21/20 History fenofibrate nanocrystallized 145 mg PO DAILY 11/11/19 10/21/20 History [Tricor] fluoxetine 10 mg PO DAILY 09/18/20 10/21/20 History Eliquis 5 mg PO BID 10/10/20 10/21/20 History acetaminophen [Tylenol Extra 1,000 mg PO Q6H PRN 10/10/20 10/21/20 History Strength] carboxymethylcellulose sodium 1 drp OPL HS 10/10/20 10/21/20 History cyclobenzaprine 10 mg PO TID PRN 10/10/20 10/21/20 History gabapentin 300 mg PO TID 10/10/20 10/21/20 History lisinopril 5 mg PO DAILY 10/10/20 10/21/20 History metoprolol tartrate 25 mg PO TID 10/10/20 10/21/20 History Past Med/Surg History Medical History Accidental drug overdose CAD (coronary artery disease) CKD (chronic kidney disease) stage 3, GFR 30-59 ml/min Depression DM (diabetes mellitus) GERD (gastroesophageal reflux disease) HTN (hypertension) Hypercholesteremia Hypertriglyceridemia Hypotension Mini stroke Postoperative atrial fibrillation Presence of arterial stent L leg, unable to relate exact location. Restless leg syndrome TIA (transient ischemic attack) Type II diabetes mellitus Surgical History H/O knee surgery stent behind left knee 2017 H/O vasectomy History of angioplasty of peripheral vessel LLE angiogram with CAR PRE COOLER popliteal 05/23/2018 Hx of colonoscopy 2017 S/P CABG x 3 Family History Grandfather Colorectal cancer Mother Diabetes Hypertension Brother Stroke Social History Smoking Status: Never smoker Tobacco Type: Cigars Hx Alcohol Use: No Hx Substance Use: No Preferred Language: Sinhala Communication Ability: Effective Medical Record Technician Required: No Beliefs That Will Affect Care: None Current Living Situation: Alone current occupational status: retired Other Information That Helps Us Care for You: No Feels Safe at Home: Yes Safety Concerns: Feels Safe At This Time Assistive Devices: Glasses and Hearing Aid - Bilateral Review of Systems Review of Systems: The patient denies chest pain, palpitations, shortness of breath, dyspnea on exertion, cough, lower extremity swelling, sore throat, fevers, chills, sweats, nausea, vomiting, diarrhea , constipation, abdominal pain, pelvic pain, blood in urine or stool, dysuria, urinary frequency or urgency, memory loss, loss of consciousness, rash, abnormal bruising or bleeding, focal weakness, numbness or tingling in arms or legs, generalized arthralgias or myalgias, back or neck pain, or night sweats. The review of systems is otherwise negative other than for that already noted above, and at least 10 systems have been reviewed. Physical Exam Physical Exam: The patient is awake, alert and oriented 3, well developed and well nourished, normocephalic and atraumatic, lying in bed and in no acute distress. HEENT--PERRL, EOMI, mucous membranes and oropharynx dry. Neck--supple. No JVD. No bruits. Thyroid normal, trachea midline, no adenopathy. Heart--intermittently tachycardic and regular. No murmurs, rubs or gallops. Lungs--decreased breath sounds at bases, left greater than right. No respiratory distress, no accessory muscle use. Abdomen--normal bowel sounds and soft. Nontender. Nondistended, no hernias or masses, no organomegaly. Extremities--no cyanosis or clubbing. No edema. Dermatologic--normal skin turgor, normal color, no abnormal lymph nodes, no rash. Neurologic--cranial nerves II through XII grossly intact. Rheumatologic--normal range of motion. Psychiatric--normal affect. Results & Data Results & Data ([facility]) Vital Signs (Past 12 Hours) Vital Signs Temp Pulse Resp BP Pulse Ox 10/21/20 22:13 97.5 F L 10/21/20 21:30 95 H 26 H 128/77 99 10/21/20 21:25 145 H 33 H 116/82 100 10/21/20 21:20 88 16 99 10/21/20 21:10 132 H 32 H 99 10/21/20 21:03 119 H 15 10/21/20 20:50 86 33 H 10/21/20 20:40 126 H 35 H 99 10/21/20 20:30 120 H 34 H 99 10/21/20 20:28 99 10/21/20 20:25 139 H 25 H 101/70 99 10/21/20 20:22 105 H 33 H 99 10/21/20 20:20 129 H 23 101/70 Laboratory Results Laboratory Results WBC 18.47 K/uL (4.8-10.8) H 10/21/20 20:44 RBC 4.72 M/uL (4.7-6.1) 10/21/20 20:44 Hgb 14.2 g/dL (14.0-18.0) 10/21/20 20:44 Hct 41.9 % (42-52) L 10/21/20 20:44 MCV 88.8 fL (80-100) 10/21/20 20:44 MCH 30.1 pg (25-34) 10/21/20 20:44 MCHC 33.9 g/dL (32-36) 10/21/20 20:44 RDW Std Deviation 45.9 fL (36.4-46.3) 10/21/20 20:44 RDW Coeff of Brice 14.2 % (11.5-14.5) 01/25/21 20:44 Plt Count 270 K/uL (130-400) 10/21/20 20:44 MPV 12.0 fL (7.4-10.4) H 10/21/20 20:44 Immature Gran % (Auto) 1.0 % 10/21/20 20:44 Neut % (Auto) 79.5 % 10/21/20 20:44 Lymph % (Auto) 11.4 % 10/21/20 20:44 [place] % (Auto) 6.7 % 10/21/20 20:44 Eos % (Auto) 1.2 % 10/21/20 20:44 Baso % (Auto) 0.2 % 10/21/20 20:44 Neut # (Auto) 14.69 K/uL (1.4-6.5) H 10/21/20 20:44 Lymph # (Auto) 2.10 K/uL (1.2-3.4) 10/21/20 20:44 [place] # (Auto) 1.23 K/uL (0.11-0.59) H 10/21/20 20:44 Eos # (Auto) 0.23 K/uL (0-0.5) 10/21/20 20:44 Baso # (Auto) 0.04 K/uL (0-0.2) 10/21/20 20:44 Immature Gran # (Auto) 0.18 K/uL (0.00-0.02) H 10/21/20 20:44 PT 11.9 Seconds (9.0-12.0) 10/21/20 20:44 INR 1.1 (0.9-1.1) 10/21/20 20:44 Sodium 135 mmol/L (136-145) L 10/21/20 20:44 Potassium 4.0 mmol/L (3.5-5.1) 10/21/20 20:44 Chloride 103 mmol/L (98-107) 10/21/20 20:44 Carbon Dioxide 21 mmol/L (21-32) 10/21/20 20:44 Anion Gap 11.0 (3-11) 10/21/20 20:44 BUN 28 mg/dl (7-18) H 10/21/20 20:44 Creatinine 1.95 mg/dl (0.6-1.4) H 10/21/20 20:44 Est Cr Clr Drug Dosing 31.1 ml/min 10/21/20 20:44 Est GFR ( Amer) 38.2 10/21/20 20:44 Est GFR (Non-Af Amer) 32.9 10/21/20 20:44 BUN/Creatinine Ratio 14.3 (10-20) 10/21/20 20:44 Glucose 154 mg/dl (70-99) H 10/21/20 20:44 Lactate 1.9 mmol/L (0.4-2.0) 10/21/20 23:33 Calcium 9.4 mg/dl (8.5-10.1) 10/21/20 20:44 Phosphorus 2.9 mg/dl (2.5-4.9) 10/21/20 20:44 Magnesium 2.0 mg/dl (1.8-2.4) 10/21/20 20:44 Total Bilirubin 0.5 mg/dl (0.2-1) 10/21/20 20:44 AST 19 U/L (15-37) 10/21/20 20:44 ALT 37 U/L (12-78) 10/21/20 20:44 Alkaline Phosphatase 110 U/L (45-117) 10/21/20 20:44 Troponin I 0.026 ng/ml (0-0.045) 10/21/20 20:44 NT-Pro-B Natriuret Pep 2261 pg/ml (0-900) H 10/21/20 20:44 Total Protein 7.2 gm/dl (6.4-8.2) 10/21/20 20:44 Albumin 3.5 gm/dl (3.4-5.0) 10/21/20 20:44 Globulin 3.7 gm/dl (2.5-4.0) 10/21/20 20:44 Albumin/Globulin Ratio 1.0 (0.9-2) 10/21/20 20:44 TSH 2.150 uIu/ml (0.300-4.500) 10/21/20 20:44 COVID-19 Eval Order CovFluRsv at [facility] 10/21/20 21: SARS-CoV-2 (PCR) NEGATIVE (Negative) 10/21/20 21: Influenza Type A (PCR) Negative (Neg) 10/21/20 21:27 Influenza Type B (PCR) Negative (Neg) 10/21/20 21:27 RSV (RT-PCR) Negative (Neg) 10/21/20 21:27 Diagnostic Findings [facility], [id number] CT Scan Report Patient: CAIN NAZARIO EAdmit Date: 10/21/20MR#: [id number]: [id number] RDAcct ID:[id number]: Date: 1945[facility] Zip: [place], [place] [address]Lax: 74Location: EDSex: MRoom/Bed:Att Phy:Diagnosis: FALL/DIZZYPri Phy: Alejandrina BrooksDOlegOOlegService Date: 10/21/20Fa Phy:Interpreting Phy: Ronny Sanderson MDAdmit Phy: Ordering Phy: Severo Garcia MD cc: ~ CT OF THE HEAD WITHOUT CONTRAST CLINICAL HISTORY: s/p fall to L side COMPARISON STUDY: Head CT October 10, 2020. CT DOSE: 537.48 mGy.cm TECHNIQUE: Helical axial images of the head were obtained without IV contrast. Automated exposure control was utilized for the study. A dose lowering technique was utilized adhering to the principles of ALARA. FINDINGS: No acute intracranial hemorrhage, midline shift or mass effect is present. The ventricular system is unremarkable. The basal cisterns are patent. No extra-axial collections are present. White matter hypodensities are unchanged. There are no findings to suggest acute dural sinus thrombosis or acute territorial infarct. No significant calvarial abnormalities are present. Visualized portions of the sinuses and mastoid air cells are clear. IMPRESSION: 1. No acute intracranial findings. No change in appearance of the brain. 2. No calvarial fracture. ACT 112: Negative or not required by law. Electronically signed by: Ronny Sanderson M.D. 10/21/2020 9:09 PM Dictated: 10/21/202102Transcribed: 10/21/202102 Code Status & VTE Plan Code Status Full code VTE Prophylaxis Plan VTE Prophylaxis will be ordered: Yes PG Care Time/CCT Total # of Minutes Spent Total Time Spent with Patient: Total time spent is greater than 50% in coordination of care (as documented) at patient's floor/unit and/or counseling patient: Coding Level of Care Code 14002 Initial Inpt Care Lvl 3 Diagnoses Atrial flutter with rapid ventricular response I48.92 Postoperative atrial fibrillation I97.89; I48.91 S/P CABG x 3 Z95.1 CAD (coronary artery disease) I25.110 Associated angina: with unstable angina Coronary Disease-Associated Artery/Lesion type: [place] artery [place] vs. transplanted heart: [place] heart HTN (hypertension) I10 Acute dehydration E86.0 Hypertriglyceridemia E78.1 GERD (gastroesophageal reflux disease) K21.9 (1) CAD (coronary artery disease) Associated angina: with unstable angina Coronary Disease-Associated Artery/Lesion type: [place] artery [place] vs. transplanted heart: [place] heart Qualified Code(s): I25.110 - Atherosclerotic heart disease of [place] coronary artery with unstable angina pectoris
[2020-10-21] MEDS ORDERED: 0.2 MICRON FILTER SET 1 EA IV ONE (23:20)
[2020-10-21] MEDS ORDERED: AMIODARONE IV BOLUS & DRIP IV STA (23:20)
[2020-10-21] MEDS ORDERED: STAT IV Infusion **Titration per Protocol STA (23:20)
[2020-10-21] MEDS ORDERED: AMIODARONE / D5W 150 MG/100 ML BAG IV STA (23:35)
[2020-10-21] MEDS ORDERED: AMIODARONE / D5W 360 MG/200 ML BAG IV ONE (23:45)
[2020-10-22] MEDS ORDERED: ONDANSETRON INJ 2 MG/ML 2 ML VIAL IV PRN (00:15)
[2020-10-22] MEDS ORDERED: CYCLOBENZAPRINE HCL 10 MG TAB PO PRN (00:15)
[2020-10-22] MEDS ORDERED: ACETAMINOPHEN 325 MG TAB PO PRN (00:15)
[2020-10-22] MEDS: APIXABAN 5 MG TABLET PO SCH ×3 (02:55→21:40)
[2020-10-22 03:21] LABS: Appearance Urine Clear (Clear); Bacteria Urine Automated Negative (Negative); Bilirubin Urine Negative (Negative); Blood Urine Negative (Negative); Color Urine Yellow; Glucose Urine UA Negative (Negative); Ketones Urine Negative (Negative); Leukocyte Esterase Urine Negative (Negative); Nitrite Urine Negative (Negative); Protein Urine 1+ (Negative); RBC Urine Automated 0-4 /hpf (0-4); Specific Gravity Urine 1.022 (1.000-1.030); Urobilinogen Urine Negative (Negative)
[2020-10-22] MEDS: AMIODARONE / D5W 360 MG/200 ML BAG IV SCH ×2 (05:21→16:42)
[2020-10-22 05:33] LABS: Basophils # (auto) 0.04 K/uL (0-0.2); Basophils % (auto) 0.3 %; Eosinophils # (auto) 0.24 K/uL (0-0.5); Eosinophils % (auto) 1.7 %; Hematocrit (blood only) 36.8 % (42-52); Hemoglobin 12.3 g/dL (14.0-18.0); Immature Granulocytes # (auto) 0.16 K/uL (0.00-0.02); Immature Granulocytes % (auto) 1.2 %; Lymphocytes # (auto) 2.41 K/uL (1.2-3.4); Lymphocytes % (auto) 17.5 %; Mean Corpuscular Hemoglobin 29.8 pg (25-34); Mean Corpuscular Hgb Conc 33.4 g/dL (32-36); Mean Corpuscular Volume 89.1 fL (80-100); Mean Platelet Volume 11.6 fL (7.4-10.4); Monocytes # (auto) 0.95 K/uL (0.11-0.59); Monocytes % (auto) 6.9 %; Neutrophils # (auto) 10.01 K/uL (1.4-6.5); Neutrophils % (auto) 72.4 %; Platelet Count 186 K/uL (130-400); RDW Coefficient of Variation 14.3 % (11.5-14.5); RDW Standard Deviation 46.5 fL (36.4-46.3); Red Blood Count 4.13 M/uL (4.7-6.1); White Blood Count 13.81 K/uL (4.8-10.8)
[2020-10-22 06:06] LABS: Albumin Level 2.9 gm/dl (3.4-5.0); BUN Creatinine Ratio 14.4 (10-20); Calcium 8.1 mg/dl (8.5-10.1); Creatinine Clr Calc Pharmacy 36.1 ml/min; Est GFR (African American) 45.7; Est GFR (Non-African American) 39.4; Potassium 3.7 mmol/L (3.5-5.1)
[2020-10-22 06:12] LABS: Albumin Globulin Ratio 0.9 (0.9-2); Bilirubin,Total 0.5 mg/dl (0.2-1); Globulin 3.1 gm/dl (2.5-4.0); Troponin I 0.024 ng/ml (0-0.045)
--- NOTE | 2020-10-22 07:41 | XRay Report ---
SINGLE VIEW CHEST CLINICAL HISTORY: Generalized weakness. FINDINGS: An AP, portable, upright chest radiograph is compared to study dated 10/10/2020 and correlat ed with chest CT dated 11/12/2019. The examination is degraded by portable technique and patient rotat ion. The patient is status post midline sternotomy. The heart is enlarged noting atherosclerotic calc ification of the thoracic aorta. The pulmonary vasculature is noncongested a calcified granuloma is a gain seen in the left upper lobe. There is elevation of the left hemidiaphragm. There is left basilar consolidation and a small left pleural effusion. The right lung appears clear. Apical scarring is ob served. No pneumothorax is seen. The skeletal structures are osteopenic. The bony thorax is grossly i ntact. IMPRESSION: 1. Cardiomegaly without radiographic evidence of congestive failure. 2. There is left basilar consolidation and a small left pleural effusion. Correlate clinically for ev idence of pneumonia/aspiration pneumonitis. This has modestly cleared as compared to 10/10/2020. Tato nued follow-up to complete resolution is recommended. ACT 112: Negative or not required by law. Electronically signed by: Bryant Graves M.D. 10/22/2020 7:39 AM
[2020-10-22] MEDS: EZETIMIBE 10 MG TABLET PO SCH (08:12)
[2020-10-22] MEDS: GABAPENTIN 300 MG CAP PO SCH ×3 (08:12→21:41)
[2020-10-22] MEDS: PANTOprazole 40 MG TAB PO SCH (08:12)
[2020-10-22] MEDS: ASPIRIN 81 MG ECTAB PO SCH (08:12)
[2020-10-22] MEDS: MULTIVITAMIN TAB PO SCH (08:12)
[2020-10-22] MEDS: METOPROLOL TARTRATE 25 MG TAB PO SCH ×3 (08:12→16:24)
[2020-10-22] MEDS: FLUoxetine HCL 10 MG CAP PO SCH (08:12)
[2020-10-22] MEDS ORDERED: FENOFIBRATE NANOCRYSTALLIZED 145 MG TABLET PO SCH (09:00)
[2020-10-22] MEDS ORDERED: POTASSIUM CHLORIDE CRTAB 20 MEQ TABCR PO STA (09:03)
--- NOTE | 2020-10-22 09:59 | Cardiology Consultation ---
Date of Consultation The patient did not sleep at all all night. He was sleeping very soundly this morning and I did not wake him because of that. I was able to perform an exam without him waking. The history is therefore obtained from the nursing staff as well as the chart. He had recurrent lightheadedness and dizziness and hit his head similar to what he had in his previous admission earlier this month. 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 He appears prerenal on his laboratory studies it is unclear as to whether he just does not have an appetite. In addition I believe he is living on his own although he has family locally to assist him. His episode of lightheadedness and dizziness previously was thought to be the fact that he took too much blood pressure medicine which he admits to. October 22, 2020 History of Present Illness Attending Physician: Geneva Hernandez MD Allergies Allergy/AdvReac Type Severity Reaction Status Date / Time niacin Allergy Unknown ARTHRALGIAS Verified 10/10/20 18:07 FROM ADVICOR telithromycin Allergy Unknown ARTHRALGIAS Verified 10/10/20 18:07 FROM ADVICOR atorvastatin AdvReac Intermediate Muscle Pain Verified 10/10/20 18:07 lovastatin AdvReac Intermediate ARTHRALGIAS Verified 10/10/20 18:07 FROM ADVICOR Cihiehv-Zfo-Vey Reductase AdvReac Intermediate Muscle Pain Verified 10/10/20 18:07 Inhibitor STERIODS Allergy Unknown Unknown Uncoded 10/10/20 18:07 Home Medications Medication Instructions Recorded Confirmed Type aspirin 81 mg PO DAILY 08/08/18 10/21/20 History multivitamin 1 tab PO DAILY 08/08/18 10/21/20 History omeprazole 40 mg PO DAILY 08/08/18 10/21/20 History ropinirole 0.25 mg PO HS #0 tab 08/11/18 10/21/20 Rx ezetimibe 10 mg PO DAILY 11/11/19 10/21/20 History fenofibrate nanocrystallized 145 mg PO DAILY 11/11/19 10/21/20 History [Tricor] fluoxetine 10 mg PO DAILY 09/18/20 10/21/20 History Eliquis 5 mg PO BID 10/10/20 10/21/20 History acetaminophen [Tylenol Extra 1,000 mg PO Q6H PRN 10/10/20 10/21/20 History Strength] carboxymethylcellulose sodium 1 drp OPL HS 10/10/20 10/21/20 History cyclobenzaprine 10 mg PO TID PRN 10/10/20 10/21/20 History gabapentin 300 mg PO TID 10/10/20 10/21/20 History lisinopril 5 mg PO DAILY 10/10/20 10/21/20 History metoprolol tartrate 25 mg PO TID 10/10/20 10/21/20 History Patient History Medical History Accidental drug overdose CAD (coronary artery disease) CKD (chronic kidney disease) stage 3, GFR 30-59 ml/min Depression DM (diabetes mellitus) GERD (gastroesophageal reflux disease) HTN (hypertension) Hypercholesteremia Hypertriglyceridemia Hypotension Mini stroke Postoperative atrial fibrillation Presence of arterial stent L leg, unable to relate exact location. Restless leg syndrome TIA (transient ischemic attack) Type II diabetes mellitus Surgical History H/O knee surgery stent behind left knee 2017 H/O vasectomy History of angioplasty of peripheral vessel LLE angiogram with NEEDLE STRAIGHTENER popliteal 05/23/2018 Hx of colonoscopy 2017 S/P CABG x 3 Family History Grandfather Colorectal cancer Mother Diabetes Hypertension Brother Stroke Social History Smoking Status: Never smoker Tobacco Type: Cigars Hx Alcohol Use: No Hx Substance Use: No Preferred Language: Malay Communication Ability: Effective Special Events Manager Required: No Beliefs That Will Affect Care: None Current Living Situation: Alone current occupational status: retired Feels Safe at Home: Yes Assistive Devices: Glasses and Hearing Aid - Bilateral Results & Data ([facility]) Vital Signs (Past 12 Hours) Vital Signs Temp Pulse Pulse Resp BP BP Pulse Ox 10/22/20 08:00 36.8 C 70 70 20 164/90 H 95 10/22/20 03:01 36.8 C 101 H 24 120/71 99 10/22/20 00:49 100 H 10/22/20 00:17 36.4 C L 115 H 23 149/76 H 99 10/21/20 23:30 130 H 22 124/87 98 10/21/20 23:01 108 H 23 100 10/21/20 23:00 120 H 25 H 121/63 100 10/21/20 22:31 124 H 24 99 10/21/20 22:30 78 28 H 123/74 100 10/21/20 22:13 36.4 C L 10/21/20 22:01 118 H 24 99 10/21/20 22:00 127 H 24 119/88 99 HEENT 2+ carotid upstrokes no evidence of carotid bruits Lungs: Decreased breath sounds in the bases bilaterally no rales rhonchi or wheezing Heart regular rate and rhythm no appreciable murmurs rubs or gallops Abdomen soft nontender nondistended positive bowel sounds Extremities no clubbing cyanosis or edema Psychiatric his affect appeared appropriate Skin his median sternotomy incision and chest tube sites are well-healed without erythema or drainage Cardiac catheterization August 2020 1. Severe three-vessel coronary artery disease -95% proximal LAD, diffuse mid LAD up to 80% 90% proximal large OM 2 Focal 60 to 70% mid RCA (FFR 0.80). 2. Normal intracardiac filling pressure His EKG was reviewed His chest x-ray was reviewed His labs from this admission were reviewed Impressions: 1. Hypotension secondary to dehydration and atrial flutter 2. Status post coronary bypass grafting x3 at [facility] 09/26/2020 3. Normal LV systolic function postoperatively with an EF in the range of 60 to 65% 4 postoperative atrial fibrillation maintaining sinus rhythm 5. Chronic kidney disease stage III with a baseline creatinine of 1.7 6. 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 Diabetes mellitus type 2 8. Hyperlipidemia intolerant of statins on Zetia 9. Hypertriglyceridemia on fenofibrate--with his renal function the dose should be reduced to 54 mg He is back in sinus rhythm this morning. I would continue with IV amiodarone for the next 24 hours. We will start p.o. amiodarone today and overlap for the 24-hour. We will have to watch though if he is having nausea at home and not eating and drinking well amiodarone very well may make this worse. He needs a social work program coordinator consult determine how well he is living on his own and recovering post bypass surgery I think there is some limitations to him being on his own and being successful with that. He may need to live with family until he recovers. He can remain on the rest of his medical regiment. At this point he is on anticoagulation. with the fact that he hit his head twice (negative CT scans of his head x2) and in sinus rhythm with amiodarone we will have to weigh the long- term risks and benefits of anticoagulation and the risk of falls. If his blood pressure is low I would stop his lisinopril. He should remain on a PPI with his aspirin and his anticoagulation.
[2020-10-22] MEDS ORDERED: AMIODARONE 200 MG TAB PO ONE (10:15)
--- NOTE | 2020-10-22 10:35 | Electrocardiogram Report ---
Test Reason : Blood Pressure : / mmHG Vent. Rate : 112 BPM Atrial Rate : 111 BPM P-R Int : 000 ms QRS Dur : 092 ms QT Int : 400 ms P-R-T Axes : 000 000 100 degrees QTc Int : 546 ms Atrial fibrillation with rapid ventricular response Prolonged QT Abnormal ECG When compared with ECG of 10-OCT-2020 16:53, Atrial fibrillation has replaced Sinus rhythm Confirmed by Inocente Mcpherson ([id number]) on 10/22/2020 10:35:00 AM Referred By: REFERRED SELF Confirmed By:Mahad Mcpherson
--- NOTE | 2020-10-22 11:27 | Electrocardiogram Report ---
Test Reason : Blood Pressure : / mmHG Vent. Rate : 073 BPM Atrial Rate : 073 BPM P-R Int : 146 ms QRS Dur : 146 ms QT Int : 524 ms P-R-T Axes : 060 -07 -12 degrees QTc Int : 577 ms Normal sinus rhythm Possible Left atrial enlargement Left ventricular hypertrophy with QRS widening Inferior infarct , age undetermined Abnormal ECG Confirmed by Inocente Mcpherson ([id number]) on 10/22/2020 11:26:37 AM Referred By: REFERRED SELF Confirmed By:Mahad Mcpherson
--- NOTE | 2020-10-22 15:32 | CT Scan Report ---
CT OF THE CHEST WITHOUT IV CONTRAST CLINICAL HISTORY: f/u LLL opacity,effusion,s/p CABG 3 weeks ago COMPARISON STUDY: Chest CT November 12, 2019. Chest radiograph October 21, 2020. CT DOSE: 419.98 mGy.cm TECHNIQUE: Axial images of the chest were obtained without IV contrast. Images were reviewed in the axial, sagittal, and coronal planes. IV contrast was not administered for this examination. Automat ed exposure control was utilized for the study. A dose lowering technique was utilized adhering to t he principles of ALARA. FINDINGS: Note is made of median sternotomy wires and postoperative findings consistent with bypass grafting. Mild infiltration within the operative bed is expected in the early postoperative setting. There is mild cardiomegaly. There is no significant pericardial effusion. No pneumothorax is present. A small left pleural effusion is noted. Note is made of extensive left lower lobe airspace opacity w ith volume loss. There is elevation of the left hemidiaphragm. There is also lingular airspace opacit y. These findings favor atelectasis. There are mild groundglass opacities within the right lung, most pronounced within the right upper lobe. Central airways are patent. There is no right pleural effusi on. No thoracic lymphadenopathy is present. There are no suspicious lesions within the bony thorax. A calcified granuloma within the left upper lobe is incidentally noted. A 3 mm right upper lobe nodule on image [id number] of July 12, 2020. This is likely benign. Visualized portions of the upper abdomen are unremarkable on this unenhanced exam IMPRESSION: 1. Small left pleural effusion with left lower lobe airspace opacity with volume loss. This favors at electasis. 2. Minimal groundglass opacities within the right lung which favor an infectious process. 3. Status post median sternotomy and coronary artery bypass grafting. Minimal infiltration and fluid within the operative bed which is within normal limits in the early postoperative setting. ACT 112: Negative or not required by law. Electronically signed by: Ronny Sanderson M.D. 10/22/2020 3:31 PM
[2020-10-22] MEDS: AMIODARONE 200 MG TAB PO SCH (16:43)
--- NOTE | 2020-10-22 17:14 | Hospitalist Progress Note ---
Date of Service October 22, 2020 Assessment & Plan (1) Atrial flutter with rapid ventricular response: Pt is 3.5 weeks postop CABG x3, had post-op Afib in [place] as well and placed on Eliquis at that time. Patient had been placed on metoprolol tartrate 25 mg p.o. 3 times daily for rate control Patient symptoms of generalized weakness since surgery, and tendency toward falling, may be secondary to being in and out of atrial flutter with RVR vs dehydration? Was started on amiodarone bolus/gtt and now converted to sinus rhythm Was given IVFs but now stopped -Appreciate Cardiology consultation -start po amiodarone 400bid and continue gtt for 24 more hours -Continue Eliquis 5 mg p.o. twice daily -can dc lisinopril if BPs too low -Changed metoprolol tartrate to 25 bid -continue tele monitoring (2) Postoperative atrial fibrillation: Postoperative atrial fibrillation/flutter, a complication of care (3) S/P CABG x 3: See above Status post surgery end of August With small left pleural effusion and possible paralysis of the left phrenic nerve with associated atelectasis most likely Follow-up with cardiothoracic surgery as planned (4) CAD (coronary artery disease): Status post CABG Continue aspirin, Eliquis, fenofibrate, metoprolol Intolerant of statins (5) HTN (hypertension): Blood pressures low upon arrival but now increased after receiving IV fluids Continue metoprolol Holding home lisinopril Of note, his amlodipine was discontinued upon last admission (6) Acute dehydration: Received 1.5 L normal saline in ED, BUN and creatinine are now improved No further IV fluids needed Likely contributed to hypotension and fall (7) Fall: Likely due to hypotension, dehydration Sustained a hematoma and abrasion to the left side of the scalp CT head negative PT/OT consults ordered (8) Hypertriglyceridemia: Continue fenofibrate but lower the dose for renal dosing (9) GERD (gastroesophageal reflux disease): Continue PPI (10) 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 Causing significant left lower lobe and left lingula atelectasis Follow-up with the cardiothoracic surgery Pulmonology consulted-recommends hypertonic saline, incentive spirometry, albuterol nebulizers Opacity is atelectasis and not pneumonia-no further antibiotics indicated espec ially as procalcitonin is negative Leukocytosis is improved and likely was due to stress response (11) Pleural effusion, left: Noted above, no suspicion of parapneumonic effusion Expected postoperative from CABG (12) CKD (chronic kidney disease) stage 3, GFR 30-59 ml/min: Acute kidney failure, POA, resolving/resolved Creatinine down to 1.6 which is around his baseline from 1.9 on admission Resolved with IV fluid hydration -Avoid nephrotoxins -renally dose meds when appropriate -follow BMP (13) DM (diabetes mellitus): Hemoglobin A1c 6.7% here He is not on medication for this at home Follow-up with PCP (14) Restless leg syndrome: No new issues Continue home Requip (15) Depression: No new issues Continue home fluoxetine 10 mg daily (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 Had an MRI of the brain that was reportedly normal at that time also Check Lyme titer (17) Leukocytosis: 18,000 on admission now reduced to 13,000 Procalcitonin is negative, remains afebrile Was treated with 1 dose of Zosyn and vancomycin for possible pneumonia upon admission but this has been discontinued Follow CBC in the morning (18) Metabolic acidosis: Serum bicarbonate is mildly low at 19-he runs chronically low normal Lactate was elevated upon admission which is now improved with IV fluid hydration Follow BMP in the morning (19) DVT prophylaxis: Eliquis Disposition-continued stay in PCU PT/OT consultations Admission and Anticipated Discharge Date Admission Date: October 21, 2020 Subjective Pt c/p being very tired. but denies any chest pain or SOB. He reports yesterday he felt very lightheaded when his heart was racing and he also felt SOB at that time. He denies any fevers/chills/sweats at home. I noted his left face to be drooping a bit today and he said that is the side of his face that he had Salinas's Palsy on 2 weeks ago at [facility]. Doesn't feel weak in his cheek and he no longer is dribbling fluids out the left side of his mouth when he drinks like before. Denies any headache or lighheadedness now. BPs are now slightly increased. He reports he was drinking 4 water bottles a day at home and does not think he was dehydrated. He has a home visiting RN that helped him organize his pills after discharge last time. Tele with Afib-converted to NSR this AM in which he remains. I discussed his care with the PULM. Review of Systems Review of Systems: All systems reviewed & are unremarkable except as noted in HPI & below moved his bowels this AM but had been constipated x 3 days Physical Exam Constitutional: WD/WN, vitals as above Eyes: + anicteric sclerae and EOM intact bilaterally ENMT: external ear and nose normal, oropharynx normal Neck: trachea midline, no thyromegaly Respiratory: normal respiratory effort Auscultation: + diminished lung sounds (at left lower lung field); no crackles and no wheezes Cardiovascular: RRR, no murmur, no edema Chest (Breasts): Chest: + abnormal inspection of chest (mid-sternal wound scabbed over,no erythema) Gastrointestinal (Abdomen): normal bowel sounds, soft, nontender, no hepatosplenomegaly Musculoskeletal: Extremities: extremities normal to inspection; no cyanosis and no clubbing Skin: no rashes, warm and dry Neurologic: moves all extremities and awake; + CN's not intact (very mild left 7th nerve palsy) and no focal motor deficits (full strength throughout all extremities) Motor/Sensory: no tremor Psychiatric: A+Ox3, euthymic affect Lymphatic: no lymphedema Results & Data Results & Data ([facility]) Vital Signs (Past 12 Hours) Vital Signs Temp Pulse Pulse Resp BP Pulse Ox 10/22/20 16:00 36.6 C 56 L 54 L 20 124/66 96 10/22/20 11:00 37.0 C 70 64 20 163/83 H 96 10/22/20 08:00 36.8 C 70 70 20 164/90 H 95 Laboratory Results 10/22/20 10/22/20 10/22/20 Range/Units Unknown 14:57 14:57 WBC (4.8-10.8) K/uL RBC (4.7-6.1) M/uL Hgb (14.0-18.0) g/dL Hct (42-52) % MCV (80-100) fL MCH (25-34) pg MCHC (32-36) g/dL RDW Std Deviation (36.4-46.3) fL RDW Coeff of Brice (11.5-14.5) % Plt Count (130-400) K/uL MPV (7.4-10.4) fL Immature Gran % (Auto) % Neut % (Auto) % Lymph % (Auto) % [place] % (Auto) % Eos % (Auto) % Baso % (Auto) % Neut # (Auto) (1.4-6.5) K/uL Lymph # (Auto) (1.2-3.4) K/uL [place] # (Auto) (0.11-0.59) K/uL Eos # (Auto) (0-0.5) K/uL Baso # (Auto) (0-0.2) K/uL Immature Gran # (Auto) (0.00-0.02) K/uL PT (9.0-12.0) Seconds INR (0.9-1.1) Sodium (136-145) mmol/L Potassium (3.5-5.1) mmol/L Chloride (98-107) mmol/L Carbon Dioxide (21-32) mmol/L Anion Gap (3-11) BUN (7-18) mg/dl Creatinine (0.6-1.4) mg/dl Est Cr Clr Drug Dosing ml/min Est GFR ( Amer) Est GFR (Non-Af Amer) BUN/Creatinine Ratio (10-20) Glucose (70-99) mg/dl Lactate (0.4-2.0) mmol/L Calcium (8.5-10.1) mg/dl Phosphorus (2.5-4.9) mg/dl Magnesium (1.8-2.4) mg/dl Total Bilirubin (0.2-1) mg/dl AST (15-37) U/L ALT (12-78) U/L Alkaline Phosphatase (45-117) U/L Troponin I (0-0.045) ng/ml NT-Pro-B Natriuret Pep (0-900) pg/ml Total Protein (6.4-8.2) gm/dl Albumin (3.4-5.0) gm/dl Globulin (2.5-4.0) gm/dl Albumin/Globulin Ratio (0.9-2) Procalcitonin (0-0.5) ng/ml TSH (0.300-4.500) uIu/ml Urine Color Yellow Urine Appearance Clear (Clear) Urine pH 7.0 (4.5-7.5) Ur Specific Surveyor 1.022 (1.000-1.030) Urine Protein 1+ H (Negative) Urine Glucose (UA) Negative (Negative) Urine Ketones Negative (Negative) Urine Blood Negative (Negative) Urine Nitrite Negative (Negative) Urine Bilirubin Negative (Negative) Urine Urobilinogen Negative (Negative) Ur Leukocyte Esterase Negative (Negative) Urine WBC (Auto) 1-5 (0-5) /hpf Urine RBC (Auto) 0-4 (0-4) /hpf U Hyaline Cast (Auto) 1-5 (0-5) /lpf U Epithel Cells (Auto) 5-10 H (0-5) /lpf Urine Bacteria (Auto) Negative (Negative) Nasal Screen MRSA (PCR) (Negative) Lyme Disease IgG Ab Negative (Negative) Lyme IgG (Western Blot) Pending Lyme IgG 18 kDa Band Pending Lyme IgG 23 kDa Band Pending Lyme IgG 28 kDa Band Pending Lyme IgG 30 kDa Band Pending Lyme IgG 39 kDa Band Pending Lyme IgG 41 kDa Band Pending Lyme IgG 45 kDa Band Pending Lyme IgG 58 kDa Band Pending Lyme IgG 66 kDa Band Pending Lyme IgG 93 kDa Band Pending Lyme IgM Ab (WB) Pending Lyme Disease IgM Ab Equivocal A (Negative) Lyme IgM 23 kDa Band Pending Lyme IgM 39 kDa Band Pending Lyme IgM 41 kDa Band Pending COVID-19 Eval Order SARS-CoV-2 (PCR) (Negative) Hepatitis C Ab Screen (Neg) Influenza Type A (PCR) (Neg) Influenza Type B (PCR) (Neg) RSV (RT-PCR) (Neg) 10/22/20 10/22/20 10/22/20 Range/Units 14:57 14:57 12:47 WBC (4.8-10.8) K/uL RBC (4.7-6.1) M/uL Hgb (14.0-18.0) g/dL Hct (42-52) % MCV (80-100) fL MCH (25-34) pg MCHC (32-36) g/dL RDW Std Deviation (36.4-46.3) fL RDW Coeff of Brice (11.5-14.5) % Plt Count (130-400) K/uL MPV (7.4-10.4) fL Immature Gran % (Auto) % Neut % (Auto) % Lymph % (Auto) % [place] % (Auto) % Eos % (Auto) % Baso % (Auto) % Neut # (Auto) (1.4-6.5) K/uL Lymph # (Auto) (1.2-3.4) K/uL [place] # (Auto) (0.11-0.59) K/uL Eos # (Auto) (0-0.5) K/uL Baso # (Auto) (0-0.2) K/uL Immature Gran # (Auto) (0.00-0.02) K/uL PT (9.0-12.0) Seconds INR (0.9-1.1) Sodium (136-145) mmol/L Potassium (3.5-5.1) mmol/L Chloride (98-107) mmol/L Carbon Dioxide (21-32) mmol/L Anion Gap (3-11) BUN (7-18) mg/dl Creatinine (0.6-1.4) mg/dl Est Cr Clr Drug Dosing ml/min Est GFR ( Amer) Est GFR (Non-Af Amer) BUN/Creatinine Ratio (10-20) Glucose (70-99) mg/dl Lactate 1.6 (0.4-2.0) mmol/L Calcium (8.5-10.1) mg/dl Phosphorus (2.5-4.9) mg/dl Magnesium (1.8-2.4) mg/dl Total Bilirubin (0.2-1) mg/dl AST (15-37) U/L ALT (12-78) U/L Alkaline Phosphatase (45-117) U/L Troponin I 0.017 (0-0.045) ng/ml NT-Pro-B Natriuret Pep (0-900) pg/ml Total Protein (6.4-8.2) gm/dl Albumin (3.4-5.0) gm/dl Globulin (2.5-4.0) gm/dl Albumin/Globulin Ratio (0.9-2) Procalcitonin 0.07 (0-0.5) ng/ml TSH (0.300-4.500) uIu/ml Urine Color Urine Appearance (Clear) Urine pH (4.5-7.5) Ur Specific Surveyor (1.000-1.030) Urine Protein (Negative) Urine Glucose (UA) (Negative) Urine Ketones (Negative) Urine Blood (Negative) Urine Nitrite (Negative) Urine Bilirubin (Negative) Urine Urobilinogen (Negative) Ur Leukocyte Esterase (Negative) Urine WBC (Auto) (0-5) /hpf Urine RBC (Auto) (0-4) /hpf U Hyaline Cast (Auto) (0-5) /lpf U Epithel Cells (Auto) (0-5) /lpf Urine Bacteria (Auto) (Negative) Nasal Screen MRSA (PCR) (Negative) Lyme Disease IgG Ab (Negative) Lyme IgG (Western Blot) Lyme IgG 18 kDa Band Lyme IgG 23 kDa Band Lyme IgG 28 kDa Band Lyme IgG 30 kDa Band Lyme IgG 39 kDa Band Lyme IgG 41 kDa Band Lyme IgG 45 kDa Band Lyme IgG 58 kDa Band Lyme IgG 66 kDa Band Lyme IgG 93 kDa Band Lyme IgM Ab (WB) Lyme Disease IgM Ab (Negative) Lyme IgM 23 kDa Band Lyme IgM 39 kDa Band Lyme IgM 41 kDa Band COVID-19 Eval Order SARS-CoV-2 (PCR) (Negative) Hepatitis C Ab Screen (Neg) Influenza Type A (PCR) (Neg) Influenza Type B (PCR) (Neg) RSV (RT-PCR) (Neg) 10/22/20 10/22/20 10/22/20 Range/Units 04:40 04:40 04:40 WBC 13.81 H (4.8-10.8) K/uL RBC 4.13 L (4.7-6.1) M/uL Hgb 12.3 L (14.0-18.0) g/dL Hct 36.8 L (42-52) % MCV 89.1 (80-100) fL MCH 29.8 (25-34) pg MCHC 33.4 (32-36) g/dL RDW Std Deviation 46.5 H (36.4-46.3) fL RDW Coeff of Brice 14.3 (11.5-14.5) % Plt Count 186 (130-400) K/uL MPV 11.6 H (7.4-10.4) fL Immature Gran % (Auto) 1.2 % Neut % (Auto) 72.4 % Lymph % (Auto) 17.5 % [place] % (Auto) 6.9 % Eos % (Auto) 1.7 % Baso % (Auto) 0.3 % Neut # (Auto) 10.01 H (1.4-6.5) K/uL Lymph # (Auto) 2.41 (1.2-3.4) K/uL [place] # (Auto) 0.95 H (0.11-0.59) K/uL Eos # (Auto) 0.24 (0-0.5) K/uL Baso # (Auto) 0.04 (0-0.2) K/uL Immature Gran # (Auto) 0.16 H (0.00-0.02) K/uL PT (9.0-12.0) Seconds INR (0.9-1.1) Sodium 138 (136-145) mmol/L Potassium 3.7 (3.5-5.1) mmol/L Chloride 109 H (98-107) mmol/L Carbon Dioxide 19 L (21-32) mmol/L Anion Gap 10.0 (3-11) BUN 24 H (7-18) mg/dl Creatinine 1.68 H (0.6-1.4) mg/dl Est Cr Clr Drug Dosing 36.1 ml/min Est GFR ( Amer) 45.7 Est GFR (Non-Af Amer) 39.4 BUN/Creatinine Ratio 14.4 (10-20) Glucose 128 H (70-99) mg/dl Lactate (0.4-2.0) mmol/L Calcium 8.1 L (8.5-10.1) mg/dl Phosphorus (2.5-4.9) mg/dl Magnesium 2.0 (1.8-2.4) mg/dl Total Bilirubin 0.5 (0.2-1) mg/dl AST 17 (15-37) U/L ALT 28 (12-78) U/L Alkaline Phosphatase 90 (45-117) U/L Troponin I 0.024 (0-0.045) ng/ml NT-Pro-B Natriuret Pep (0-900) pg/ml Total Protein 6.0 L (6.4-8.2) gm/dl Albumin 2.9 L (3.4-5.0) gm/dl Globulin 3.1 (2.5-4.0) gm/dl Albumin/Globulin Ratio 0.9 (0.9-2) Procalcitonin (0-0.5) ng/ml TSH (0.300-4.500) uIu/ml Urine Color Urine Appearance (Clear) Urine pH (4.5-7.5) Ur Specific Surveyor (1.000-1.030) Urine Protein (Negative) Urine Glucose (UA) (Negative) Urine Ketones (Negative) Urine Blood (Negative) Urine Nitrite (Negative) Urine Bilirubin (Negative) Urine Urobilinogen (Negative) Ur Leukocyte Esterase (Negative) Urine WBC (Auto) (0-5) /hpf Urine RBC (Auto) (0-4) /hpf U Hyaline Cast (Auto) (0-5) /lpf U Epithel Cells (Auto) (0-5) /lpf Urine Bacteria (Auto) (Negative) Nasal Screen MRSA (PCR) (Negative) Lyme Disease IgG Ab (Negative) Lyme IgG (Western Blot) Lyme IgG 18 kDa Band Lyme IgG 23 kDa Band Lyme IgG 28 kDa Band Lyme IgG 30 kDa Band Lyme IgG 39 kDa Band Lyme IgG 41 kDa Band Lyme IgG 45 kDa Band Lyme IgG 58 kDa Band Lyme IgG 66 kDa Band Lyme IgG 93 kDa Band Lyme IgM Ab (WB) Lyme Disease IgM Ab (Negative) Lyme IgM 23 kDa Band Lyme IgM 39 kDa Band Lyme IgM 41 kDa Band COVID-19 Eval Order SARS-CoV-2 (PCR) (Negative) Hepatitis C Ab Screen Neg (Neg) Influenza Type A (PCR) (Neg) Influenza Type B (PCR) (Neg) RSV (RT-PCR) (Neg) 10/21/20 10/21/20 10/21/20 Range/Units 23:55 23:33 21:36 WBC (4.8-10.8) K/uL RBC (4.7-6.1) M/uL Hgb (14.0-18.0) g/dL Hct (42-52) % MCV (80-100) fL MCH (25-34) pg MCHC (32-36) g/dL RDW Std Deviation (36.4-46.3) fL RDW Coeff of Brice (11.5-14.5) % Plt Count (130-400) K/uL MPV (7.4-10.4) fL Immature Gran % (Auto) % Neut % (Auto) % Lymph % (Auto) % [place] % (Auto) % Eos % (Auto) % Baso % (Auto) % Neut # (Auto) (1.4-6.5) K/uL Lymph # (Auto) (1.2-3.4) K/uL [place] # (Auto) (0.11-0.59) K/uL Eos # (Auto) (0-0.5) K/uL Baso # (Auto) (0-0.2) K/uL Immature Gran # (Auto) (0.00-0.02) K/uL PT (9.0-12.0) Seconds INR (0.9-1.1) Sodium (136-145) mmol/L Potassium (3.5-5.1) mmol/L Chloride (98-107) mmol/L Carbon Dioxide (21-32) mmol/L Anion Gap (3-11) BUN (7-18) mg/dl Creatinine (0.6-1.4) mg/dl Est Cr Clr Drug Dosing ml/min Est GFR ( Amer) Est GFR (Non-Af Amer) BUN/Creatinine Ratio (10-20) Glucose (70-99) mg/dl Lactate 1.9 2.6 H* (0.4-2.0) mmol/L Calcium (8.5-10.1) mg/dl Phosphorus (2.5-4.9) mg/dl Magnesium (1.8-2.4) mg/dl Total Bilirubin (0.2-1) mg/dl AST (15-37) U/L ALT (12-78) U/L Alkaline Phosphatase (45-117) U/L Troponin I (0-0.045) ng/ml NT-Pro-B Natriuret Pep (0-900) pg/ml Total Protein (6.4-8.2) gm/dl Albumin (3.4-5.0) gm/dl Globulin (2.5-4.0) gm/dl Albumin/Globulin Ratio (0.9-2) Procalcitonin (0-0.5) ng/ml TSH (0.300-4.500) uIu/ml Urine Color Urine Appearance (Clear) Urine pH (4.5-7.5) Ur Specific Surveyor (1.000-1.030) Urine Protein (Negative) Urine Glucose (UA) (Negative) Urine Ketones (Negative) Urine Blood (Negative) Urine Nitrite (Negative) Urine Bilirubin (Negative) Urine Urobilinogen (Negative) Ur Leukocyte Esterase (Negative) Urine WBC (Auto) (0-5) /hpf Urine RBC (Auto) (0-4) /hpf U Hyaline Cast (Auto) (0-5) /lpf U Epithel Cells (Auto) (0-5) /lpf Urine Bacteria (Auto) (Negative) Nasal Screen MRSA (PCR) Negative (Negative) Lyme Disease IgG Ab (Negative) Lyme IgG (Western Blot) Lyme IgG 18 kDa Band Lyme IgG 23 kDa Band Lyme IgG 28 kDa Band Lyme IgG 30 kDa Band Lyme IgG 39 kDa Band Lyme IgG 41 kDa Band Lyme IgG 45 kDa Band Lyme IgG 58 kDa Band Lyme IgG 66 kDa Band Lyme IgG 93 kDa Band Lyme IgM Ab (WB) Lyme Disease IgM Ab (Negative) Lyme IgM 23 kDa Band Lyme IgM 39 kDa Band Lyme IgM 41 kDa Band COVID-19 Eval Order SARS-CoV-2 (PCR) (Negative) Hepatitis C Ab Screen (Neg) Influenza Type A (PCR) (Neg) Influenza Type B (PCR) (Neg) RSV (RT-PCR) (Neg) 10/21/20 10/21/20 10/21/20 Range/Units 21:27 21:27 20:44 WBC (4.8-10.8) K/uL RBC (4.7-6.1) M/uL Hgb (14.0-18.0) g/dL Hct (42-52) % MCV (80-100) fL MCH (25-34) pg MCHC (32-36) g/dL RDW Std Deviation (36.4-46.3) fL RDW Coeff of Brice (11.5-14.5) % Plt Count (130-400) K/uL MPV (7.4-10.4) fL Immature Gran % (Auto) % Neut % (Auto) % Lymph % (Auto) % [place] % (Auto) % Eos % (Auto) % Baso % (Auto) % Neut # (Auto) (1.4-6.5) K/uL Lymph # (Auto) (1.2-3.4) K/uL [place] # (Auto) (0.11-0.59) K/uL Eos # (Auto) (0-0.5) K/uL Baso # (Auto) (0-0.2) K/uL Immature Gran # (Auto) (0.00-0.02) K/uL PT (9.0-12.0) Seconds INR (0.9-1.1) Sodium 135 L (136-145) mmol/L Potassium 4.0 (3.5-5.1) mmol/L Chloride 103 (98-107) mmol/L Carbon Dioxide 21 (21-32) mmol/L Anion Gap 11.0 (3-11) BUN 28 H (7-18) mg/dl Creatinine 1.95 H (0.6-1.4) mg/dl Est Cr Clr Drug Dosing 31.1 ml/min Est GFR ( Amer) 38.2 Est GFR (Non-Af Amer) 32.9 BUN/Creatinine Ratio 14.3 (10-20) Glucose 154 H (70-99) mg/dl Lactate (0.4-2.0) mmol/L Calcium 9.4 (8.5-10.1) mg/dl Phosphorus 2.9 (2.5-4.9) mg/dl Magnesium 2.0 (1.8-2.4) mg/dl Total Bilirubin 0.5 (0.2-1) mg/dl AST 19 (15-37) U/L ALT 37 (12-78) U/L Alkaline Phosphatase 110 (45-117) U/L Troponin I 0.026 (0-0.045) ng/ml NT-Pro-B Natriuret Pep 2261 H (0-900) pg/ml Total Protein 7.2 (6.4-8.2) gm/dl Albumin 3.5 (3.4-5.0) gm/dl Globulin 3.7 (2.5-4.0) gm/dl Albumin/Globulin Ratio 1.0 (0.9-2) Procalcitonin (0-0.5) ng/ml TSH 2.150 (0.300-4.500) uIu/ml Urine Color Urine Appearance (Clear) Urine pH (4.5-7.5) Ur Specific Surveyor (1.000-1.030) Urine Protein (Negative) Urine Glucose (UA) (Negative) Urine Ketones (Negative) Urine Blood (Negative) Urine Nitrite (Negative) Urine Bilirubin (Negative) Urine Urobilinogen (Negative) Ur Leukocyte Esterase (Negative) Urine WBC (Auto) (0-5) /hpf Urine RBC (Auto) (0-4) /hpf U Hyaline Cast (Auto) (0-5) /lpf U Epithel Cells (Auto) (0-5) /lpf Urine Bacteria (Auto) (Negative) Nasal Screen MRSA (PCR) (Negative) Lyme Disease IgG Ab (Negative) Lyme IgG (Western Blot) Lyme IgG 18 kDa Band Lyme IgG 23 kDa Band Lyme IgG 28 kDa Band Lyme IgG 30 kDa Band Lyme IgG 39 kDa Band Lyme IgG 41 kDa Band Lyme IgG 45 kDa Band Lyme IgG 58 kDa Band Lyme IgG 66 kDa Band Lyme IgG 93 kDa Band Lyme IgM Ab (WB) Lyme Disease IgM Ab (Negative) Lyme IgM 23 kDa Band Lyme IgM 39 kDa Band Lyme IgM 41 kDa Band COVID-19 Eval Order CovFluRsv at [facility] SARS-CoV-2 (PCR) NEGATIVE (Negative) Hepatitis C Ab Screen (Neg) Influenza Type A (PCR) Negative (Neg) Influenza Type B (PCR) Negative (Neg) RSV (RT-PCR) Negative (Neg) 10/21/20 10/21/20 Range/Units 20:44 20:44 WBC 18.47 H (4.8-10.8) K/uL RBC 4.72 (4.7-6.1) M/uL Hgb 14.2 (14.0-18.0) g/dL Hct 41.9 L (42-52) % MCV 88.8 (80-100) fL MCH 30.1 (25-34) pg MCHC 33.9 (32-36) g/dL RDW Std Deviation 45.9 (36.4-46.3) fL RDW Coeff of Brice 14.2 (11.5-14.5) % Plt Count 270 (130-400) K/uL MPV 12.0 H (7.4-10.4) fL Immature Gran % (Auto) 1.0 % Neut % (Auto) 79.5 % Lymph % (Auto) 11.4 % [place] % (Auto) 6.7 % Eos % (Auto) 1.2 % Baso % (Auto) 0.2 % Neut # (Auto) 14.69 H (1.4-6.5) K/uL Lymph # (Auto) 2.10 (1.2-3.4) K/uL [place] # (Auto) 1.23 H (0.11-0.59) K/uL Eos # (Auto) 0.23 (0-0.5) K/uL Baso # (Auto) 0.04 (0-0.2) K/uL Immature Gran # (Auto) 0.18 H (0.00-0.02) K/uL PT 11.9 (9.0-12.0) Seconds INR 1.1 (0.9-1.1) Sodium (136-145) mmol/L Potassium (3.5-5.1) mmol/L Chloride (98-107) mmol/L Carbon Dioxide (21-32) mmol/L Anion Gap (3-11) BUN (7-18) mg/dl Creatinine (0.6-1.4) mg/dl Est Cr Clr Drug Dosing ml/min Est GFR ( Amer) Est GFR (Non-Af Amer) BUN/Creatinine Ratio (10-20) Glucose (70-99) mg/dl Lactate (0.4-2.0) mmol/L Calcium (8.5-10.1) mg/dl Phosphorus (2.5-4.9) mg/dl Magnesium (1.8-2.4) mg/dl Total Bilirubin (0.2-1) mg/dl AST (15-37) U/L ALT (12-78) U/L Alkaline Phosphatase (45-117) U/L Troponin I (0-0.045) ng/ml NT-Pro-B Natriuret Pep (0-900) pg/ml Total Protein (6.4-8.2) gm/dl Albumin (3.4-5.0) gm/dl Globulin (2.5-4.0) gm/dl Albumin/Globulin Ratio (0.9-2) Procalcitonin (0-0.5) ng/ml TSH (0.300-4.500) uIu/ml Urine Color Urine Appearance (Clear) Urine pH (4.5-7.5) Ur Specific Surveyor (1.000-1.030) Urine Protein (Negative) Urine Glucose (UA) (Negative) Urine Ketones (Negative) Urine Blood (Negative) Urine Nitrite (Negative) Urine Bilirubin (Negative) Urine Urobilinogen (Negative) Ur Leukocyte Esterase (Negative) Urine WBC (Auto) (0-5) /hpf Urine RBC (Auto) (0-4) /hpf U Hyaline Cast (Auto) (0-5) /lpf U Epithel Cells (Auto) (0-5) /lpf Urine Bacteria (Auto) (Negative) Nasal Screen MRSA (PCR) (Negative) Lyme Disease IgG Ab (Negative) Lyme IgG (Western Blot) Lyme IgG 18 kDa Band Lyme IgG 23 kDa Band Lyme IgG 28 kDa Band Lyme IgG 30 kDa Band Lyme IgG 39 kDa Band Lyme IgG 41 kDa Band Lyme IgG 45 kDa Band Lyme IgG 58 kDa Band Lyme IgG 66 kDa Band Lyme IgG 93 kDa Band Lyme IgM Ab (WB) Lyme Disease IgM Ab (Negative) Lyme IgM 23 kDa Band Lyme IgM 39 kDa Band Lyme IgM 41 kDa Band COVID-19 Eval Order SARS-CoV-2 (PCR) (Negative) Hepatitis C Ab Screen (Neg) Influenza Type A (PCR) (Neg) Influenza Type B (PCR) (Neg) RSV (RT-PCR) (Neg) Diagnostic Findings CT OF THE CHEST WITHOUT IV CONTRAST CLINICAL HISTORY: f/u LLL opacity,effusion,s/p CABG 3 weeks ago COMPARISON STUDY: Chest CT November 12, 2019. Chest radiograph October 21, 2020. CT DOSE: 419.98 mGy.cm TECHNIQUE: Axial images of the chest were obtained without IV contrast. Images were reviewed in the axial, sagittal, and coronal planes. IV contrast was not administered for this examination. Automated exposure control was utilized for the study. A dose lowering technique was utilized adhering to the principles of ALARA. FINDINGS: Note is made of median sternotomy wires and postoperative findings consistent with bypass grafting. Mild infiltration within the operative bed is expected in the early postoperative setting. There is mild cardiomegaly. There is no significant pericardial effusion. No pneumothorax is present. A small left pleural effusion is noted. Note is made of extensive left lower lobe airspace opacity with volume loss. There is elevation of the left hemidiaphragm. There is also lingular airspace opacity. These findings favor atelectasis. There are mild groundglass opacities within the right lung, most pronounced within the right upper lobe. Central airways are patent. There is no right pleural effusion. No thoracic lymphadenopathy is present. There are no suspicious lesions within the bony thorax. A calcified granuloma within the left upper lobe is incidentally noted. A 3 mm right upper lobe nodule on image [id number] of July 12, 2020. This is likely benign. Visualized portions of the upper abdomen are unremarkable on this unenhanced exam IMPRESSION: 1. Small left pleural effusion with left lower lobe airspace opacity with volume loss. This favors atelectasis. 2. Minimal groundglass opacities within the right lung which favor an infectious process. 3. Status post median sternotomy and coronary artery bypass grafting. Minimal infiltration and fluid within the operative bed which is within normal limits in the early postoperative setting. PG Care Time/CCT Total # of Minutes Spent Total Time Spent with Patient: Total time spent is greater than 50% in coordination of care (as documented) at patient's floor/unit and/or counseling patient: Coding Level of Care Code 13937 Subseq Hosp Care Lvl 3 Diagnoses Atrial flutter with rapid ventricular response I48.92 Postoperative atrial fibrillation I97.89; I48.91 S/P CABG x 3 Z95.1 CAD (coronary artery disease) I25.110 Associated angina: with unstable angina Coronary Disease-Associated Artery/Lesion type: rampart artery [place] vs. 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 transplanted heart: rampart heart Qualified Code(s): I25.110 - Atherosclerotic heart disease of rampart coronary artery with unstable angina pectoris
--- NOTE | 2020-10-22 17:56 | Pulmonary Consultation ---
Date of Consultation October 22, 2020 Assessment & Plan (1) Diaphragmatic paralysis: I suspect the patient's left lower lobe atelectasis is related to his paretic left hemidiaphragm. This is likely secondary to his recent coronary artery bypass grafting. There are no specific interventions for unilateral hemidiaphragmatic paralysis. I would recommend utilizing incentive spirometry, flutter valve and increasing ambulation. I am going to order hypertonic nebulization twice daily to help improve his airway clearance. I would recommend having a follow-up chest x-ray in 2 to 3 weeks to make certain there is not an increasing pleural effusion. The pleural effusion currently is very small and likely not contributing to symptoms significantly. I am not concerned of infection at this time as his procalcitonin is within normal limits. He does not look septic. I would recommend following up with his cardiothoracic surgeon at [facility] regarding his heavy diaphragmatic paralysis. Additionally I am going to order 5 mg nightly melatonin. We discussed appropriate sleep hygiene. I personally discussed the case with the bedside RN and the hospitalist. Pulmonary will continue to follow along with you. Thank you for the consult. (2) Atelectasis of left lung: (3) Pleural effusion, left: (4) Atrial flutter with rapid ventricular response: (5) Atrial fibrillation with rapid ventricular response: (6) S/P CABG x 3: History of Present Illness Reason for Consultation: Hypoxia with left-sided infiltrate Requesting Physician: Dr. Geneva Hernandez Attending Physician: Geneva Hernandez MD History of Present Illness 74-year-old male with a past medical history CABG x3 in August 2020, atrial fibrillation, TIA, restless leg syndrome, insomnia, hypertriglyceridemia, diabetes mellitus, GERD and history of tobacco abuse presenting to the hospital due to palpitations and shortness of breath. He was admitted yesterday on 10/21/2020. Patient notes that he was very anxious yesterday and short of breath. He feels that his breath is very shallow. He denies any cough. He denies any fevers or chills. He feels his breathing has improved substantially today. He is currently on an amiodarone drip and his heart rate is better contr olled with a heart rate has 59. He is in atrial fibrillation currently. Additionally he has had recurrent lightheadedness dizziness. He had a fall at home and hit the left side of his head. CT head was negative. Pulmonary is consulted for a left-sided infiltrate on chest x-ray. I recommended a CT chest which was completed. CT chest demonstrated left lower lobe atelectasis and a small pleural effusion on the left. He notes that after his coronary artery bypass grafting, he was given an pillow and was encouraged to cough frequently. He was using an incentive spirometer at home intermittently. He notes that his sleep has been very poor lately and he has had trouble falling asleep. This was particularly problematic during his hospitalization at [facility] after his coronary artery bypass grafting. Patient notes he has a history of smoking cigars for 20 years. He quit several years ago. 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 He also was in the serving in the branch of the [employer]. He was never deployed outside [facility]. Procalcitonin was obtained and was within normal limits. WBC count today is 13,800. Creatinine is 1.68. Lactate was 2.6 on presentation and has normalized. UA on 10/22/2019 with no evidence of UTI. Allergies Allergy/AdvReac Type Severity Reaction Status Date / Time niacin Allergy Unknown ARTHRALGIAS Verified 10/10/20 18:07 FROM ADVICOR telithromycin Allergy Unknown ARTHRALGIAS Verified 10/10/20 18:07 FROM ADVICOR atorvastatin AdvReac Intermediate Muscle Pain Verified 10/10/20 18:07 lovastatin AdvReac Intermediate ARTHRALGIAS Verified 10/10/20 18:07 FROM ADVICOR Shjckks-Pzt-Lug Reductase AdvReac Intermediate Muscle Pain Verified 10/10/20 18:07 Inhibitor STERIODS Allergy Unknown Unknown Uncoded 10/10/20 18:07 Home Medications Medication Instructions Recorded Confirmed Type aspirin 81 mg PO DAILY 08/08/18 10/21/20 History multivitamin 1 tab PO DAILY 08/08/18 10/21/20 History omeprazole 40 mg PO DAILY 08/08/18 10/21/20 History ropinirole 0.25 mg PO HS #0 tab 08/11/18 10/21/20 Rx ezetimibe 10 mg PO DAILY 11/11/19 10/21/20 History fenofibrate nanocrystallized 145 mg PO DAILY 11/11/19 10/21/20 History [Tricor] fluoxetine 10 mg PO DAILY 09/18/20 10/21/20 History Eliquis 5 mg PO BID 10/10/20 10/21/20 History acetaminophen [Tylenol Extra 1,000 mg PO Q6H PRN 10/10/20 10/21/20 History Strength] carboxymethylcellulose sodium 1 drp OPL HS 10/10/20 10/21/20 History cyclobenzaprine 10 mg PO TID PRN 10/10/20 10/21/20 History gabapentin 300 mg PO TID 10/10/20 10/21/20 History lisinopril 5 mg PO DAILY 10/10/20 10/21/20 History metoprolol tartrate 25 mg PO TID 10/10/20 10/21/20 History Patient History Medical History Accidental drug overdose CAD (coronary artery disease) CKD (chronic kidney disease) stage 3, GFR 30-59 ml/min Depression DM (diabetes mellitus) GERD (gastroesophageal reflux disease) HTN (hypertension) Hypercholesteremia Hypertriglyceridemia Hypotension Mini stroke Postoperative atrial fibrillation Presence of arterial stent L leg, unable to relate exact location. Restless leg syndrome TIA (transient ischemic attack) Type II diabetes mellitus Surgical History H/O knee surgery stent behind left knee 2017 H/O vasectomy History of angioplasty of peripheral vessel LLE angiogram with [employer] popliteal 05/23/2018 Hx of colonoscopy 2017 S/P CABG x 3 Family History Grandfather Colorectal cancer Mother Diabetes Hypertension Brother Stroke Social History Smoking Status: Never smoker Tobacco Type: Cigars Hx Alcohol Use: No Hx Substance Use: No Preferred Language: Ukrainian Communication Ability: Effective Hand Cigar Making Supervisor Required: No Beliefs That Will Affect Care: None Current Living Situation: Alone current occupational status: retired Feels Safe at Home: Yes Assistive Devices: Glasses and Hearing Aid - Bilateral Review of Systems Review of Systems: All systems reviewed & are unremarkable except as noted in HPI & below Physical Exam Constitutional: WD/WN, vitals as above Eyes: PERRL, conjunctivae normal, anicteric sclerae ENMT: external ear and nose normal, oropharynx normal Neck: trachea midline, no thyromegaly Respiratory: Diminished lung sounds at the left lung base. Otherwise clear. Cardiovascular: Rate/Rhythm: + bradycardic and + irregularly irregular Heart Sounds: normal S1 and normal S2 Healing surgical incision in the midline noted. Gastrointestinal (Abdomen): normal bowel sounds, soft, nontender, no hepatosplenomegaly Musculoskeletal: no cyanosis or clubbing, extremities motor strength 5/5 Skin: no rashes, warm and dry Neurologic: PERRL, EOMI, accommodation nl, no face palsy, no dysarthria Psychiatric: A+Ox3, euthymic affect Results & Data Results & Data ([facility]) Vital Signs (Past 12 Hours) Vital Signs Temp Pulse Pulse Resp BP Pulse Ox 10/22/20 16:00 97.9 F 56 L 54 L 20 124/66 96 10/22/20 11:00 98.6 F 70 64 20 163/83 H 96 10/22/20 08:00 98.2 F 70 70 20 164/90 H 95 I personally reviewed his vital signs, labs. I personally reviewed his chest x- ray and CT chest which demonstrated left-sided lower lobe atelectasis with effusion. Sternal wires noted as well. PG Care Time/CCT Total # of Minutes Spent Total Time Spent with Patient: Total time spent is greater than 50% in coordination of care (as documented) at patient's floor/unit and/or counseling patient: Coding Level of Care Code 67447 Inpt Consult Level 5 Diagnoses Diaphragmatic paralysis J98.6 Atelectasis of left lung J98.11 Pleural effusion, left J90 Atrial flutter with rapid ventricular response I48.92 Atrial fibrillation with rapid ventricular response I48.91 S/P CABG x 3 Z95.1
[2020-10-22] MEDS ORDERED: MELATONIN 3 MG TAB PO PRN (18:02)
[2020-10-22 18:15] LABS: Lyme Ab IgG w/WB Rflx Negative (Negative)
[2020-10-22 18:27] LABS: Lyme Ab IgM w/WB Rflx Equivocal (Negative)
[2020-10-22] MEDS ORDERED: ALBUT/IPRATROP 3MG/0.5MG NEB 3 ML VIAL ONE (19:07)
[2020-10-22] MEDS: SODIUM CHLOR 7% 4 ML NEB NEB SCH (19:39)
[2020-10-22] MEDS: ALBUT/IPRATROP 3MG/0.5MG NEB 3 ML VIAL NEB SCH (19:46)
[2020-10-22] MEDS ORDERED: MELATONIN 3 MG TAB PO SCH (21:00)
[2020-10-22] MEDS ORDERED: rOPINIRole HCL 0.25 MG TABLET PO SCH (21:00)
[2020-10-22] MEDS ORDERED: ARTIFICIAL TEARS OP SCH (21:00)
[2020-10-23 05:02] LABS: Basophils # (auto) 0.04 K/uL (0-0.2); Basophils % (auto) 0.3 %; Eosinophils # (auto) 0.38 K/uL (0-0.5); Eosinophils % (auto) 2.8 %; Hemoglobin 11.3 g/dL (14.0-18.0); Immature Granulocytes # (auto) 0.08 K/uL (0.00-0.02); Immature Granulocytes % (auto) 0.6 %; Lymphocytes # (auto) 1.98 K/uL (1.2-3.4); Lymphocytes % (auto) 14.6 %; Mean Corpuscular Hemoglobin 29.4 pg (25-34); Mean Corpuscular Hgb Conc 32.3 g/dL (32-36); Mean Corpuscular Volume 90.9 fL (80-100); Mean Platelet Volume 11.8 fL (7.4-10.4); Monocytes # (auto) 0.79 K/uL (0.11-0.59); Monocytes % (auto) 5.8 %; Neutrophils # (auto) 10.31 K/uL (1.4-6.5); Neutrophils % (auto) 75.9 %; Platelet Count 172 K/uL (130-400); RDW Coefficient of Variation 14.6 % (11.5-14.5); RDW Standard Deviation 48.1 fL (36.4-46.3); Red Blood Count 3.85 M/uL (4.7-6.1); White Blood Count 13.58 K/uL (4.8-10.8)
[2020-10-23] MEDS: AMIODARONE / D5W 360 MG/200 ML BAG IV SCH (05:17)
[2020-10-23 05:28] LABS: Albumin Level 2.9 gm/dl (3.4-5.0); BUN Creatinine Ratio 10.6 (10-20); Calcium 8.4 mg/dl (8.5-10.1); Creatinine Clr Calc Pharmacy 38.6 ml/min; Est GFR (African American) 49.6; Est GFR (Non-African American) 42.8; Magnesium 2.1 mg/dl (1.8-2.4); Potassium 4.1 mmol/L (3.5-5.1)
[2020-10-23 05:30] LABS: Bilirubin,Total 0.4 mg/dl (0.2-1); Total Protein 5.9 gm/dl (6.4-8.2)
[2020-10-23] MEDS: SODIUM CHLOR 7% 4 ML NEB NEB SCH (07:45)
[2020-10-23] MEDS: ALBUT/IPRATROP 3MG/0.5MG NEB 3 ML VIAL NEB SCH (07:45)
[2020-10-23] MEDS: GABAPENTIN 300 MG CAP PO SCH ×2 (07:53→13:38)
[2020-10-23] MEDS: AMIODARONE 200 MG TAB PO SCH ×2 (07:53→17:14)
[2020-10-23] MEDS: FLUoxetine HCL 10 MG CAP PO SCH (07:53)
[2020-10-23] MEDS: EZETIMIBE 10 MG TABLET PO SCH (07:53)
[2020-10-23] MEDS: MULTIVITAMIN TAB PO SCH (07:53)
[2020-10-23] MEDS: APIXABAN 5 MG TABLET PO SCH (07:53)
[2020-10-23] MEDS: ASPIRIN 81 MG ECTAB PO SCH (07:54)
[2020-10-23] MEDS: PANTOprazole 40 MG TAB PO SCH (07:54)
--- NOTE | 2020-10-23 08:10 | Cardiology Progress Note ---
Date of Service October 23, 2020 Assessment & Plan Admission and Anticipated Discharge Date Admission Date: October 21, 2020 Subjective He is feeling much better this morning. He has an appetite. He notes at home has been very constipated and has not been eating although he has been drinking. Even with the amount of fluids he has been taking any notes that his urine has been concentrated. He does describe the other night feeling relatively well he all of a sudden stood up and did not feel well and had to sit down. I do wonder if this was initiation of his atrial flutter and with the loss of his atrial kick he became symptomatic. He remains in sinus rhythm he denies any palpitations or fluttering or feeling his heart racing. He has no chest pain or chest pressure. He denies any shortness of breath. He has no lower extremity edema. Results & Data ([facility]) Vital Signs (Past 12 Hours) Vital Signs Temp Pulse Resp BP Pulse Ox 10/23/20 07:49 80 20 92 10/23/20 04:00 36.9 C 58 L 18 147/77 H 97 HEENT 2+ carotid upstrokes no evidence of carotid bruits Lungs: Decreased breath sounds in the left base, no rales rhonchi or wheezing Heart regular rate and rhythm no appreciable murmurs rubs or gallops Abdomen soft nontender nondistended positive bowel sounds Extremities no clubbing cyanosis or edema Psychiatric his affect appeared appropriate Cardiac catheterization August 2020 1. Severe three-vessel coronary artery disease -95% proximal LAD, diffuse mid LAD up to 80% 90% proximal large OM 2 Focal 60 to 70% mid RCA (FFR 0.80). 2. Normal intracardiac filling pressure His EKG was reviewed His chest x-ray was reviewed His labs were reviewed Impressions: 1. Hypotension secondary to dehydration and atrial flutter 2. Status post coronary bypass grafting x3 at [facility] 09/26/2020 3. Normal LV systolic function postoperatively with an EF in the range of 60 to 65% 4 postoperative atrial fibrillation and atrial flutter 5. Chronic kidney disease stage III with a baseline creatinine of 1.7 6. Postoperative Salinas's palsy which has resolved 7. Diabetes mellitus type 2 8. Hyperlipidemia intolerant of statins on Zetia 9. Hypertriglyceridemia on fenofibrate--with his renal function the dose should be reduced to 48 mg He is maintaining sinus rhythm on on a combination of IV and p.o. amiodarone. His IV amiodarone can be discontinued once his current bag finishes out. He should remain on 400 mg of amiodarone twice daily for 4 additional days and then reduce the dose to 400 mg daily times a month and then 200 mg thereafter. He will remain on his Eliquis. I did reduce his beta-blockers as he was on the Toprol tartrate 3 times daily at home 25 mg I reduced it to 25 mg twice daily as 1 can expect bradycardia associated with amiodarone. We did discuss a bowel regimen if he has additional constipation we also discussed the need to stay well-hydrated and if his urine is anything more than light yellow he is not drinking enough. He was supposed to be seen in the office today we will cancel that appointment and arrange for a follow-up in the next 7 to 10 days. If he is ambulating this afternoon and feels well as he has home care in place and plans to spend the weekend with his family he could be discharged home from my standpoint.
[2020-10-23] MEDS ORDERED: METOPROLOL TARTRATE 25 MG TAB PO SCH (09:00)
[2020-10-23] MEDS ORDERED: FENOFIBRATE NANOCRYSTALLIZED 48 MG TABLET PO SCH (09:00)
--- NOTE | 2020-10-23 10:00 | Electrocardiogram Report ---
Test Reason : Blood Pressure : / mmHG Vent. Rate : 069 BPM Atrial Rate : 069 BPM P-R Int : 156 ms QRS Dur : 094 ms QT Int : 450 ms P-R-T Axes : 036 -08 053 degrees QTc Int : 483 ms Normal sinus rhythm Possible Left atrial enlargement Prolonged QT Abnormal ECG When compared with ECG of 22-OCT-2020 07:02, Significant changes have occurred Confirmed by Inocente Mcpherson ([id number]) on 10/23/2020 9:59:36 AM Referred By: REFERRED SELF Confirmed By:Mahad Mcpherson
[2020-10-23] MEDS ORDERED: DOXYCYCLINE HYCLATE 100 MG CAP PO SCH (13:30)
--- NOTE | 2020-10-23 13:44 | Discharge Summary ---
Date of Service October 23, 2020 Admission HPI Per Admitting Provider The patient is a 74-year-old male with a past medical history including atrial fibrillation with RVR that began status post CABG, status post CABG x3, depression, TIA, restless leg syndrome, hypertriglyceridemia, diabetes mellitus, CKD stage III, CAD, GERD and hypertension. The patient was admitted for similar symptoms from October 10-October 11, 2020, and at that time was thought to be due to confusion regarding timing of medications. While in the emergency department, it was noted that patient was in and out of atrial flutter with RVR with rates variable from 80-140, and decision was made to start the patient on amiodarone bolus/drip at that time. Patient was COVID-19 negative while in the ED this evening. Principal Diagnosis Rapid atrial flutter/fibrillation, Fall, Dehydration Salinas's Palsy, Suspected Lyme Disease Discharge Exam Constitutional WD/WN, vitals as above Eyes + anicteric sclerae and EOM intact bilaterally ENMT external ear and nose normal, oropharynx normal Neck trachea midline, no thyromegaly Respiratory normal respiratory effort Auscultation: + diminished lung sounds (at left lower lung field); no crackles and no wheezes Cardiovascular RRR, no murmur, no edema Chest (Breasts) Chest: + abnormal inspection of chest (mid-sternal wound scabbed over,no erythema) Gastrointestinal (Abdomen) normal bowel sounds, soft, nontender, no hepatosplenomegaly Musculoskeletal Extremities: extremities normal to inspection; no cyanosis and no clubbing Skin no rashes, warm and dry Neurologic moves all extremities and awake; + CN's not intact (very mild left 7th nerve palsy) and no focal motor deficits (full strength throughout all extremities) Motor/Sensory: no tremor Psychiatric A+Ox3, euthymic affect Lymphatic no lymphedema Discharge Data Allergies Allergy/AdvReac Type Severity Reaction Status Date / Time niacin Allergy Unknown ARTHRALGIAS Verified 10/10/20 18:07 FROM ADVICOR telithromycin Allergy Unknown ARTHRALGIAS Verified 10/10/20 18:07 FROM ADVICOR atorvastatin AdvReac Intermediate Muscle Pain Verified 10/10/20 18:07 lovastatin AdvReac Intermediate ARTHRALGIAS Verified 10/10/20 18:07 FROM ADVICOR Zghbpxj-Amq-Buw Reductase AdvReac Intermediate Muscle Pain Verified 10/10/20 18:07 Inhibitor STERIODS Allergy Unknown Unknown Uncoded 10/10/20 18:07 Consultations 10/22/20 00:15 Consult Cardiology Routine Consult Case Management - Discharge Planning Routine 10/22/20 10:09 Consult Case Management - Discharge Planning Routine 10/22/20 14:36 Consult Pulmonology Routine Ordered Studies 10/21/20 20:30 CT head/brain wo con Stat 10/22/20 14:34 CT chest diagnostic wo con Urgent CXR ECHO Hospital Course (1) Atrial flutter with rapid ventricular response: Pt is 3.5 weeks postop CABG x3, had post-op Afib in [place] as well and placed on Eliquis at that time. Patient had been placed on metoprolol tartrate 25 mg p.o. 3 times daily for rate control Patient symptoms of generalized weakness since surgery, and tendency toward falling, may be secondary to being in and out of atrial flutter with RVR vs dehydration? Was started on amiodarone bolus/gtt and converted to sinus rhythm Was given IVFs but then stopped. He is tolerating po intake and no longer dehydrated -Appreciate Cardiology consultation -started po amiodarone 400bid and transitioned off amiodarone gtt -continue 400 bid x 4 more days, then 400mg qday x 1 month, then drop down to 200mg once daily -Continue Eliquis 5 mg p.o. twice daily -can dc lisinopril as was causing BPs to be too low -Changed metoprolol tartrate to 25 bid (down from tid) F/u outpt Cardiology (2) Postoperative atrial fibrillation: Postoperative atrial fibrillation/flutter, a complication of care (3) S/P CABG x 3: See above Status post surgery end of August With small left pleural effusion and possible paralysis of the left phrenic nerve with associated atelectasis most likely Follow-up with cardiothoracic surgery as planned tomorrow for virtual visit (4) CAD (coronary artery disease): Status post CABG, no chest pains here, troponin neg Continue aspirin, Eliquis, fenofibrate, metoprolol Intolerant of statins (5) HTN (hypertension): Blood pressures low upon arrival but now increased after receiving IV fluids Continue metoprolol at lower dose dc home lisinopril Of note, his amlodipine was discontinued upon last admission (6) Acute dehydration: Received 1.5 L normal saline in ED, BUN and creatinine are now improved No further IV fluids needed Likely contributed to hypotension and fall (7) Fall: Likely due to hypotension, dehydration Sustained a hematoma and abrasion to the left side of the scalp CT head negative PT/OT consults ordered and ok with home with home PT/OT (8) Hypertriglyceridemia: Continue fenofibrate but lower the dose for renal dosing (9) GERD (gastroesophageal reflux disease): Continue PPI (10) 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 Causing significant left lower lobe and left lingula atelectasis Follow-up with the cardiothoracic surgery Pulmonology consulted-recommends hypertonic saline, incentive spirometry, albuterol nebulizers given x 1 day Opacity is atelectasis and not pneumonia-no further antibiotics indicated especially as procalcitonin is negative Leukocytosis is improved and likely was due to stress response He is not SOB, no hypoxia (11) Pleural effusion, left: Noted above, no suspicion of parapneumonic effusion Expected postoperative from CABG (12) CKD (chronic kidney disease) stage 3, GFR 30-59 ml/min: Acute kidney failure, POA, resolving/resolved Creatinine down to 1.57 which is around his baseline from 1.9 on admission Resolved with IV fluid hydration -Avoid nephrotoxins -renally dose meds when appropriate -follow BMP -dcd lisinopril (13) DM (diabetes mellitus): Hemoglobin A1c 6.7% here He is not on medication for this at home Follow-up with PCP (14) Restless leg syndrome: No new issues Continue home Requip (15) Depression: No new issues Continue home fluoxetine 10 mg daily (16) 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 Had an MRI of the brain that was reportedly normal at that time also Check Lyme titer--> equivocal IgM -start doxy 100mg po bid and f/u on outpt Western Blot with PCP (17) Leukocytosis: 18,000 on admission now reduced to 13,000 Procalcitonin is negative, remains afebrile Was treated with 1 dose of Zosyn and vancomycin for possible pneumonia upon admission but this has been discontinued Follow CBC as an outpt May be residual from recent steroid burst too fo rBell's Palsy? (18) Metabolic acidosis: Serum bicarbonate is mildly low at 19-he runs chronically low normal Lactate was elevated upon admission which is now improved with IV fluid hydration now resolved (19) DVT prophylaxis: Claire Disposition-stable for dc to home with home health, he plans on living with his daughter for a short stay Total Time Total Time Spent Total Time Spent (In Minutes): 45 min Total Time Includes: Examination of the Patient, Discharge Planning, Medication Reconciliation, Communication With Other Providers (Cardiology) and Other Discharge Plan Discharge Items Patient Disposition: Home - Home Health Services Reason For Visit: WEAKNESS, FALL, POST CABG A-FIB, PAROXYSMAL A-FL Discharge Diagnosis: Rapid atrial flutter/fibrillation, Dehydration, Fall, Salinas's Palsy, suspected Lyme disease Condition on Discharge: Good Activity: As commented below Exercise/Sports: Gradually increase as tolerated Exercise Comment: with home PT/OT Non-emergency contact: Primary Care Provider Call non-emergency contact if: you have any medication questions and your symptoms worsen Follow-up/Referrals: Alejandrina Brooks DO [Primary Care Provider] - 10/28/20 10:30 am Diet: Carb Consistent or DM2 and Heart Healthy Addtl Attending Provider Instructions: You were admitted with a fall likely from rapid atrial flutter/fibrillation and dehydration. Please try to stay hydrated, keep your bowels moving after discharge. You were started on a new medication to keep your heart in a normal rhythm called amiodarone. This is to be taken 400mg twice a day x 4 more days, then 400mg once daily x 1 month, then down to 200mg once daily. Your metoprolol dose was lowered to just twice a day from 3 times a day. Your lisinopril will be STOPPED for now to prevent low blood pressure. Your Salinas's palsy is still present and your Lyme disease test came back borderline positive. A confirmatory test for Lyme disease is pending and will take about a week to come back. In the meantime, you will be prescribed doxycycline as an antibiotic to treat Lyme. If your Lyme test comes back negative, then you can stop the doxycycline. Follow up with your Whiskey Filterer and PCP within 1-2 weeks. Pending Studies at Discharge: Yes Stand-Alone Forms: My [facility] Medications and DC Order Prescriptions: New doxycycline hyclate 100 mg Capsule 100 mg PO BID Qty: 60 RF: 0 fenofibrate nanocrystallized 48 mg Tablet 48 mg PO DAILY Qty: 30 RF: 0 amiodarone 200 mg Tablet 400 mg PO BIDM Qty: 38 RF: 0 melatonin 3 mg Tablet 3 mg PO HS PRN (Reason: sleep) Qty: 30 RF: 0 docusate sodium 100 mg capsule 100 mg PO BID Qty: 60 RF: 0 polyethylene glycol 3350 [Miralax] 17 gram/dose powder 17 g PO DAILY Qty: 119 RF: 0 Continued fluoxetine 10 mg Capsule 10 mg PO DAILY RF: 0 acetaminophen [Tylenol Extra Strength] 500 mg Tablet 1,000 mg PO Q6H PRN (Reason: Pain) RF: 0 gabapentin 300 mg Capsule 300 mg PO TID RF: 0 carboxymethylcellulose sodium 1 % Drops, Liquid Gel 1 drp OPL HS RF: 0 Eliquis 5 mg Tablet 5 mg PO BID RF: 0 multivitamin Tablet 1 tab PO DAILY RF: 0 aspirin 81 mg Tablet,Delayed Release (Dr/Ec) 81 mg PO DAILY RF: 0 omeprazole 20 mg capsule,delayed release(DR/EC) 40 mg PO DAILY RF: 0 ropinirole 0.25 mg tablet 0.25 mg PO HS Qty: 0 RF: 0 ezetimibe 10 mg tablet 10 mg PO DAILY RF: 0 Changed metoprolol tartrate 25 mg Tablet 25 mg PO BID Qty: 0 RF: 0 Discontinued cyclobenzaprine 10 mg Tablet 10 mg PO TID PRN (Reason: Muscle Spasm) RF: 0 lisinopril 5 mg Tablet 5 mg PO DAILY RF: 0 fenofibrate nanocrystallized [Tricor] 145 mg tablet 145 mg PO DAILY RF: 0 Discharge Orders: Discharge Order (Routine); Ordered 10/23/20 Ordered By: Geneva Hernandez Admission Data Admit Date/Time: 10/21/20 23:17 Attending Provider: Geneva Hernandez Admit Provider: Duran Lynch Primary Care Provider: Alejandrina Brooks Other Providers: Bebo Small ; [place] ; Anderson Jordan Coding Level of Care Code D/C Day Management >30 mins Diagnoses Atrial flutter with rapid ventricular response I48.92 Postoperative atrial fibrillation I97.89; I48.91 S/P CABG x 3 Z95.1 CAD (coronary artery disease) I25.110 Associated angina: with unstable angina Coronary Disease-Associated Artery/Lesion type: [place] artery [place] vs. 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
[2020-10-23 15:21] VITALS: TEMP 97.5; O2SAT 97
[2020-10-23 17:23] VITALS: BP 126/71; PULSE 62
[2020-10-25 06:47] LABS: 18KDIGG Band NON-REACTIVE; 23KDIGG Band NON-REACTIVE; 23KDIGM Band NON-REACTIVE; 28KDIGG Band NON-REACTIVE; 30KDIGG Band REACTIVE; 39KDIGG Band NON-REACTIVE; 39KDIGM Band NON-REACTIVE; 41KDIGG Band REACTIVE; 41KDIGM Band NON-REACTIVE; 45KDIGG Band REACTIVE; 58KDIGG Band NON-REACTIVE; 66KDIGG Band NON-REACTIVE; 93KDIGG Band NON-REACTIVE; Lyme Antibodies, WB IgG NEGATIVE (NEGATIVE); Lyme Antibodies, WB IgM NEGATIVE (NEGATIVE)
== END 2020-10-23 19:05 | disposition home health service (06) ==
LOC: ED 20:12 → SUATTDRO 23:17 → INTOOBSV 23:17 → 1E 23:17 → 2S 10-23 11:26
DX: I25.110 Atherosclerotic heart disease of native coronary artery with unstable angina pectoris; G25.81 Restless legs syndrome; E86.0 Dehydration; I25.10 Atherosclerotic heart disease of native coronary artery without angina pectoris; E11.22 Type 2 diabetes mellitus with diabetic chronic kidney disease; G51.0 Bell's palsy; Z79.01 Long term (current) use of anticoagulants; Z20.822 Contact with and (suspected) exposure to COVID-19; E87.2 Acidosis; J98.6 Disorders of diaphragm; I95.9 Hypotension, unspecified; Z88.8 Allergy status to other drugs, medicaments and biological substances; E78.00 Pure hypercholesterolemia, unspecified; K21.9 Gastro-esophageal reflux disease without esophagitis; I12.9 Hypertensive chronic kidney disease with stage 1 through stage 4 chronic kidney disease, or unspecified chronic kidney disease; I97.89 Other postprocedural complications and disorders of the circulatory system, not elsewhere classified; J98.11 Atelectasis; Z87.891 Personal history of nicotine dependence; Z79.899 Other long term (current) drug therapy; D72.829 Elevated white blood cell count, unspecified; Z86.73 Personal history of transient ischemic attack (TIA), and cerebral infarction without residual deficits; N18.30 Chronic kidney disease, stage 3 unspecified; Z95.5 Presence of coronary angioplasty implant and graft; E78.1 Pure hyperglyceridemia; I48.92 Unspecified atrial flutter; Z79.82 Long term (current) use of aspirin; I48.91 Unspecified atrial fibrillation

== ENCOUNTER 2021-01-16 23:46 | Inpatient (IN) ==
--- NOTE | 2021-01-17 00:02 | Emergency Department Note ---
Impression & Plan Acute left-sided weakness ED Provider Note NAME: CAIN NAZARIO AGE: 75 SEX: M : 1945 ARRIVES VIA: Walk-In INFORMANT: Patient, ED PROVIDER(S): Amando Winslow MD CHIEF COMPLAINT: weakness HPI: This is a 75-year-old male who presents emergency department over concerns of the patient was weak this evening. The patient reports he called his daughter who came over to the house and noticed that the patient was using a walker to get around which she notes is not normal. The patient reports left- sided weakness. He reports a history of TIAs as well as CABG. He is currently on Eliquis. ROS: See above HPI for pertinent positives & negatives. A total of 10 systems reviewed and were otherwise negative. PAST MEDICAL HISTORY: See Below PAST SURGICAL HISTORY: See Below FAMILY HISTORY: See Below SOCIAL HISTORY: See Below HOME MEDICATIONS: See Below ALLERGIES: See Below VITALS: See Below PHYSICAL EXAMINATION: VITAL SIGNS - Vital signs and nursing notes were reviewed. GENERAL - 75-year-old male appearing stated age who is in no acute distress. Communicates well with provider and answers questions appropriately. SKIN - Without rashes. HEAD - NC/AT. EYES - PERRL with EOMI bilaterally. Sclera anicteric. Palpebral conjunctiva pink and moist with no injection noted. EARS - No deformities of external structures noted on gross examination bilaterally. NOSE - Midline and without cyanosis. No epistaxis or purulent drainage noted. Septum midline without deviation or septal hematoma noted. MOUTH/OROPHARYNX - Without perioral cyanosis. Buccal mucosa pink and moist and without leukoplakia. Tongue midline with equal elevation of palate bilaterally. No tonsillar hypertrophy, erythema, or exudates noted. NECK - Neck with FROM. Supple to palpation. No nuchal rigidity. LUNGS - Chest wall symmetric without accessory muscle use, intercostals retractions, or central cyanosis. Normal vesicular breath sounds CTA B/L. No wheezes, rales, or rhonchi appreciated. CARDIAC - RRR with S1/S2. No murmur, rubs, or gallops appreciated. ABDOMEN - Abdominal contour without pulsations or visible masses. BS normoactive all four quadrants. No tenderness, palpable masses, h epatosplenomegaly, or ascites noted. EXTREMITIES - No clubbing or peripheral cyanosis. No pretibial edema present. +3/5 radial, posterior tibial, and dorsalis pedis pulses palpated throughout. +5/5 strength noted in UE/LE bilaterally. NEUROLOGIC - Cranial nerves II through XII grossly intact. Sensory intact to light touch throughout. Patellar reflexes +2/4. PSYCH - A&Ox3 and cooperates fully with examiner. Pt is very pleasant and interacts well with examiner. MEDICAL DECISION MAKING: Patient was seen and evaluated as above in room A11. Review was performed of nursing notes and vital signs. I did review pertinent previous visits and patient history. After obtaining a thorough history and physical examination the above work up was performed. This 75-year-old male who presents emergency department complaining of left- sided weakness. He reports the left-sided weakness has been ongoing since 8 PM last evening. A stroke alert was initiated however the patient's symptoms are very low and I do not feel he would benefit from TPA. CT of the head and CTA of the head did not show any evidence of acute CVA. Based on the patient's symptoms as well as the CTA I did discuss the case with the hospitalist service who did agree to admit patient. While in the department, I personally reevaluated the patient several times and each time the patient was found to be resting comfortably. The patient was educated upon management, educated upon todays findings/results, educated upon importance of follow up from today's visit, educated upon symptoms in which to return, had questions answered prior to discharge, verbalized understanding, and was discharged home in good condition. An order was placed for continuous cardiac monitoring. The monitor shows a rate of 94 with Normal SInus rhythm. The patient was evaluated during a period of high volume and high acuity during the global COVID-19 pandemic, and that diagnosis was suspected/considered upon their initial presentation. Their evaluation, treatment and testing was consistent with current guidelines for patients who present with complaints or symptoms that may be related to COVID-19. Patient was seen while provider was wearing PPE. Triage Nursing notes reviewed. Prior medical records reviewed Vital Signs: reviewed and remarkable for no significant abnormalities Differential diagnosis: Infection, dehydration, metabolic abnormality, hypo/hyperglycemia, electrolyte disturbance, anemia, hypoxia, cardiac sources, intracerebral event, toxicologic, neurologic, as well as other pathologies. ER treatment provided: See below Diagnostics interpreted by me: ECG: EKG shows a normal sinus rhythm inferior infarct no ST elevation or depression QTC is 474 ventricular rate is 100 when compared to EKG 11/27/2020 it is unchanged. Laboratory studies: As stated above and show below. Imaging studies: See below Consultation(s): Stroke Neurology Hospitalist service Past Med/Surg History Medical History Accidental drug overdose Atelectasis 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 Restless leg syndrome TIA (transient ischemic attack) Type II diabetes mellitus Surgical History H/O knee surgery stent behind left knee 2017 H/O vasectomy History of angioplasty of peripheral vessel LLE angiogram with WHEEL INSPECTOR popliteal 05/23/2018 Hx of colonoscopy 2017 S/P CABG x 3 Family History Grandfather Colorectal cancer Mother Diabetes Hypertension Brother Stroke Social History Smoking Status: Former smoker Tobacco Type: Cigarettes Second Hand Exposure: No; Do You Dip or Chew Tobacco: No; Hx Alcohol Use: Yes Alcohol type: beer Hx Substance Use: No Preferred Language: Welsh Communication Ability: Effective Traffic Engineer Required: No Beliefs That Will Affect Care: None marital status: Single Current Living Situation: Alone current occupational status: retired Other Information That Helps Us Care for You: No Feels Safe at Home: Yes Safety Concerns: Feels Safe At This Time Assistive Devices: Glasses Allergies Allergies Allergy/AdvReac Type Severity Reaction Status Date / Time niacin Allergy Unknown ARTHRALGIAS Verified 01/17/21 00:14 FROM ADVICOR telithromycin Allergy Unknown ARTHRALGIAS Verified 01/17/21 00:14 FROM ADVICOR atorvastatin AdvReac Intermediate Muscle Pain Verified 01/17/21 00:14 lovastatin AdvReac Intermediate ARTHRALGIAS Verified 01/17/21 00:14 FROM ADVICOR [id number] Reductase AdvReac Intermediate Muscle Pain Verified 01/17/21 00:14 Inhibitor STERIODS Allergy Unknown Unknown Uncoded 01/17/21 00:14 Home Meds Home Medications Medication Instructions Recorded Confirmed aspirin 81 mg PO QAM 08/08/18 01/17/21 multivitamin 1 tab PO QAM 08/08/18 01/17/21 ezetimibe 10 mg PO QAM 11/11/19 01/17/21 fenofibrate nanocrystallized 48 mg PO QAM 11/27/20 01/17/21 apixaban [Eliquis] 5 mg PO BID 01/17/21 01/17/21 ferrous sulfate 325 mg PO QAM 01/17/21 01/17/21 lisinopril 20 mg PO QAM 01/17/21 01/17/21 metoprolol succinate 25 mg PO QPM 01/17/21 01/17/21 omeprazole 20 mg PO QAM 01/17/21 01/17/21 ropinirole 0.5 mg PO QPM 01/17/21 01/17/21 Results & Data (ED) Vital Signs Vital Signs - 24 hr 01/16/21 23:49 01/17/21 00:29 01/17/21 00:36 Temperature 36.7 C Temperature Source Temporal Artery Scan Pulse Rate 113 H Pulse Rate [Right] 94 H Pulse Rhythm [Right] Regular Pulse Strength [Right] Normal Respiratory Rate 16 16 Respiratory Effort / Characteristics Non-Labored Spontaneous Non-Labored Spontaneous Respiratory Depth Normal Normal Blood Pressure 125/79 Blood Pressure [Right Arm] 131/73 Blood Pressure Mean 94 Blood Pressure Mean [Right Arm] 92 Blood Pressure Position [Right Arm] Lying Pulse Oximetry 98 98 98 Oxygen Delivery Method Room Air Room Air Room Air Sepsis Recent Fever Within 48 Hours No Sepsis New/Unexplained Change in Mental Status No Sepsis Action Taken by Nursing No Action Required Laboratory Data Result diagrams: 01/19/21 06:15 01/19/21 06:15 Lab Results 01/17/21 01/17/21 01/17/21 Range/Units 00:13 00:14 00:14 WBC 9.23 (4.8-10.8) K/uL RBC 4.75 (4.7-6.1) M/uL Hgb 14.4 (14.0-18.0) g/dL Hct 41.7 L (42-52) % MCV 87.8 (80-100) fL MCH 30.3 (25-34) pg MCHC 34.5 (32-36) g/dL RDW Std Deviation 46.8 H (36.4-46.3) fL RDW Coeff of Brice 14.4 (11.5-14.5) % Plt Count 187 (130-400) K/uL MPV 11.3 H (7.4-10.4) fL Immature Gran % (Auto) 0.7 % Neut % (Auto) 70.3 % Lymph % (Auto) 18.6 % Meagher % (Auto) 8.2 % Eos % (Auto) 1.8 % Baso % (Auto) 0.4 % Neut # (Auto) 6.48 (1.4-6.5) K/uL Lymph # (Auto) 1.72 (1.2-3.4) K/uL Meagher # (Auto) 0.76 H (0.11-0.59) K/uL Eos # (Auto) 0.17 (0-0.5) K/uL Baso # (Auto) 0.04 (0-0.2) K/uL Immature Gran # (Auto) 0.06 H (0.00-0.02) K/uL PT 10.6 (9.0-12.0) Seconds INR 1.0 (0.9-1.1) APTT 29.3 (21.0-31.0) Seconds PTT Ratio 1.1 Sodium 140 (136-145) mmol/L Potassium 4.1 (3.5-5.1) mmol/L Chloride 112 H (98-107) mmol/L Carbon Dioxide 23 (21-32) mmol/L Anion Gap 6.0 (3-11) BUN 24 H (7-18) mg/dl Creatinine 2.00 H (0.6-1.4) mg/dl Est Cr Clr Drug Dosing 29.8 ml/min Est GFR ( Amer) 36.7 Est GFR (Non-Af Amer) 31.7 BUN/Creatinine Ratio 12.0 (10-20) Glucose 170 H (70-99) mg/dl POC Glucose (70-99) mg/dl Estimat Average Glucose mg/dl Hemoglobin A1c (4.5-5.6) % Calcium 9.0 (8.5-10.1) mg/dl Phosphorus 3.1 (2.5-4.9) mg/dl Magnesium 2.2 (1.8-2.4) mg/dl Total Bilirubin 0.3 (0.2-1) mg/dl AST 16 (15-37) U/L ALT 25 (12-78) U/L Alkaline Phosphatase 67 (45-117) U/L Total Creatine Kinase 79 (39-308) U/L CK-MB (CK-2) 1.2 (0.5-3.6) ng/ml CK/CKMB % Calc 1.5 (0-3.0) Troponin I < 0.015 (0-0.045) ng/ml Total Protein 6.8 (6.4-8.2) gm/dl Albumin 3.7 (3.4-5.0) gm/dl Globulin 3.1 (2.5-4.0) gm/dl Albumin/Globulin Ratio 1.2 (0.9-2) Triglycerides (0-150) mg/dl Cholesterol (0-200) mg/dl LDL Cholesterol, Calc mg/dl VLDL Cholesterol, Calc mg/dl HDL Cholesterol mg/dl Cholesterol/HDL Ratio Lipase 204 (73-393) U/L Urine Color Urine Appearance (Clear) Urine pH (4.5-7.5) Ur Specific [place] (1.000-1.030) Urine Protein (Negative) Urine Glucose (UA) (Negative) Urine Ketones (Negative) Urine Blood (Negative) Urine Nitrite (Negative) Urine Bilirubin (Negative) Urine Urobilinogen (Negative) Ur Leukocyte Esterase (Negative) Nasal Screen MRSA (PCR) (Negative) COVID-19 Eval Order SARS-CoV-2 (PCR) (Negative) Influenza Type A (PCR) (Neg) Influenza Type B (PCR) (Neg) RSV (RT-PCR) (Neg) 01/17/21 01/17/21 01/17/21 Range/Units 00:19 00:19 01:21 WBC (4.8-10.8) K/uL RBC (4.7-6.1) M/uL Hgb (14.0-18.0) g/dL Hct (42-52) % MCV (80-100) fL MCH (25-34) pg MCHC (32-36) g/dL RDW Std Deviation (36.4-46.3) fL RDW Coeff of Brice (11.5-14.5) % Plt Count (130-400) K/uL MPV (7.4-10.4) fL Immature Gran % (Auto) % Neut % (Auto) % Lymph % (Auto) % Meagher % (Auto) % Eos % (Auto) % Baso % (Auto) % Neut # (Auto) (1.4-6.5) K/uL Lymph # (Auto) (1.2-3.4) K/uL Meagher # (Auto) (0.11-0.59) K/uL Eos # (Auto) (0-0.5) K/uL Baso # (Auto) (0-0.2) K/uL Immature Gran # (Auto) (0.00-0.02) K/uL PT (9.0-12.0) Seconds INR (0.9-1.1) APTT (21.0-31.0) Seconds PTT Ratio Sodium (136-145) mmol/L Potassium (3.5-5.1) mmol/L Chloride (98-107) mmol/L Carbon Dioxide (21-32) mmol/L Anion Gap (3-11) BUN (7-18) mg/dl Creatinine (0.6-1.4) mg/dl Est Cr Clr Drug Dosing ml/min Est GFR ( Amer) Est GFR (Non-Af Amer) BUN/Creatinine Ratio (10-20) Glucose (70-99) mg/dl POC Glucose (70-99) mg/dl Estimat Average Glucose mg/dl Hemoglobin A1c (4.5-5.6) % Calcium (8.5-10.1) mg/dl Phosphorus (2.5-4.9) mg/dl Magnesium (1.8-2.4) mg/dl Total Bilirubin (0.2-1) mg/dl AST (15-37) U/L ALT (12-78) U/L Alkaline Phosphatase (45-117) U/L Total Creatine Kinase (39-308) U/L CK-MB (CK-2) (0.5-3.6) ng/ml CK/CKMB % Calc (0-3.0) Troponin I (0-0.045) ng/ml Total Protein (6.4-8.2) gm/dl Albumin (3.4-5.0) gm/dl Globulin (2.5-4.0) gm/dl Albumin/Globulin Ratio (0.9-2) Triglycerides (0-150) mg/dl Cholesterol (0-200) mg/dl LDL Cholesterol, Calc mg/dl VLDL Cholesterol, Calc mg/dl HDL Cholesterol mg/dl Cholesterol/HDL Ratio Lipase (73-393) U/L Urine Color Yellow Urine Appearance Clear (Clear) Urine pH 5.5 (4.5-7.5) Ur Specific [place] > 1.045 H (1.000-1.030) Urine Protein Negative (Negative) Urine Glucose (UA) Negative (Negative) Urine Ketones Negative (Negative) Urine Blood Negative (Negative) Urine Nitrite Negative (Negative) Urine Bilirubin Negative (Negative) Urine Urobilinogen Negative (Negative) Ur Leukocyte Esterase Negative (Negative) Nasal Screen MRSA (PCR) (Negative) COVID-19 Eval Order [facility]sv at [facility] SARS-CoV-2 (PCR) NEGATIVE (Negative) Influenza Type A (PCR) Negative (Neg) Influenza Type B (PCR) Negative (Neg) RSV (RT-PCR) Negative (Neg) 01/17/21 01/17/21 01/17/21 Range/Units 02:25 04:38 04:38 WBC 8.17 (4.8-10.8) K/uL RBC 4.35 L (4.7-6.1) M/uL Hgb 13.0 L (14.0-18.0) g/dL Hct 38.2 L (42-52) % MCV 87.8 (80-100) fL MCH 29.9 (25-34) pg MCHC 34.0 (32-36) g/dL RDW Std Deviation 46.4 H (36.4-46.3) fL RDW Coeff of Brice 14.3 (11.5-14.5) % Plt Count 167 (130-400) K/uL MPV 11.6 H (7.4-10.4) fL Immature Gran % (Auto) 0.5 % Neut % (Auto) 63.4 % Lymph % (Auto) 25.5 % Meagher % (Auto) 7.3 % Eos % (Auto) 2.8 % Baso % (Auto) 0.5 % Neut # (Auto) 5.18 (1.4-6.5) K/uL Lymph # (Auto) 2.08 (1.2-3.4) K/uL Meagher # (Auto) 0.60 H (0.11-0.59) K/uL Eos # (Auto) 0.23 (0-0.5) K/uL Baso # (Auto) 0.04 (0-0.2) K/uL Immature Gran # (Auto) 0.04 H (0.00-0.02) K/uL PT (9.0-12.0) Seconds INR (0.9-1.1) APTT (21.0-31.0) Seconds PTT Ratio Sodium 140 (136-145) mmol/L Potassium 4.4 (3.5-5.1) mmol/L Chloride 112 H (98-107) mmol/L Carbon Dioxide 24 (21-32) mmol/L Anion Gap 4.0 (3-11) BUN 23 H (7-18) mg/dl Creatinine 1.77 H (0.6-1.4) mg/dl Est Cr Clr Drug Dosing 33.7 ml/min Est GFR ( Amer) 42.6 Est GFR (Non-Af Amer) 36.8 BUN/Creatinine Ratio 13.1 (10-20) Glucose 103 H (70-99) mg/dl POC Glucose (70-99) mg/dl Estimat Average Glucose mg/dl Hemoglobin A1c (4.5-5.6) % Calcium 8.4 L (8.5-10.1) mg/dl Phosphorus (2.5-4.9) mg/dl Magnesium (1.8-2.4) mg/dl Total Bilirubin (0.2-1) mg/dl AST (15-37) U/L ALT (12-78) U/L Alkaline Phosphatase (45-117) U/L Total Creatine Kinase (39-308) U/L CK-MB (CK-2) (0.5-3.6) ng/ml CK/CKMB % Calc (0-3.0) Troponin I (0-0.045) ng/ml Total Protein (6.4-8.2) gm/dl Albumin (3.4-5.0) gm/dl Globulin (2.5-4.0) gm/dl Albumin/Globulin Ratio (0.9-2) Triglycerides 544 H (0-150) mg/dl Cholesterol 174 (0-200) mg/dl LDL Cholesterol, Calc mg/dl VLDL Cholesterol, Calc mg/dl HDL Cholesterol 22 mg/dl Cholesterol/HDL Ratio 8 Lipase (73-393) U/L Urine Color Urine Appearance (Clear) Urine pH (4.5-7.5) Ur Specific [place] (1.000-1.030) Urine Protein (Negative) Urine Glucose (UA) (Negative) Urine Ketones (Negative) Urine Blood (Negative) Urine Nitrite (Negative) Urine Bilirubin (Negative) Urine Urobilinogen (Negative) Ur Leukocyte Esterase (Negative) Nasal Screen MRSA (PCR) Negative (Negative) COVID-19 Eval Order SARS-CoV-2 (PCR) (Negative) Influenza Type A (PCR) (Neg) Influenza Type B (PCR) (Neg) RSV (RT-PCR) (Neg) 01/17/21 01/17/21 01/17/21 Range/Units 04:38 07:41 11:11 WBC (4.8-10.8) K/uL RBC (4.7-6.1) M/uL Hgb (14.0-18.0) g/dL Hct (42-52) % MCV (80-100) fL MCH (25-34) pg MCHC (32-36) g/dL RDW Std Deviation (36.4-46.3) fL RDW Coeff of Brice (11.5-14.5) % Plt Count (130-400) K/uL MPV (7.4-10.4) fL Immature Gran % (Auto) % Neut % (Auto) % Lymph % (Auto) % Meagher % (Auto) % Eos % (Auto) % Baso % (Auto) % Neut # (Auto) (1.4-6.5) K/uL Lymph # (Auto) (1.2-3.4) K/uL Meagher # (Auto) (0.11-0.59) K/uL Eos # (Auto) (0-0.5) K/uL Baso # (Auto) (0-0.2) K/uL Immature Gran # (Auto) (0.00-0.02) K/uL PT (9.0-12.0) Seconds INR (0.9-1.1) APTT (21.0-31.0) Seconds PTT Ratio Sodium (136-145) mmol/L Potassium (3.5-5.1) mmol/L Chloride (98-107) mmol/L Carbon Dioxide (21-32) mmol/L Anion Gap (3-11) BUN (7-18) mg/dl Creatinine (0.6-1.4) mg/dl Est Cr Clr Drug Dosing ml/min Est GFR ( Amer) Est GFR (Non-Af Amer) BUN/Creatinine Ratio (10-20) Glucose (70-99) mg/dl POC Glucose 130 H 116 H (70-99) mg/dl Estimat Average Glucose 148 mg/dl Hemoglobin A1c 6.8 H (4.5-5.6) % Calcium (8.5-10.1) mg/dl Phosphorus (2.5-4.9) mg/dl Magnesium (1.8-2.4) mg/dl Total Bilirubin (0.2-1) mg/dl AST (15-37) U/L ALT (12-78) U/L Alkaline Phosphatase (45-117) U/L Total Creatine Kinase (39-308) U/L CK-MB (CK-2) (0.5-3.6) ng/ml CK/CKMB % Calc (0-3.0) Troponin I (0-0.045) ng/ml Total Protein (6.4-8.2) gm/dl Albumin (3.4-5.0) gm/dl Globulin (2.5-4.0) gm/dl Albumin/Globulin Ratio (0.9-2) Triglycerides (0-150) mg/dl Cholesterol (0-200) mg/dl LDL Cholesterol, Calc mg/dl VLDL Cholesterol, Calc mg/dl HDL Cholesterol mg/dl Cholesterol/HDL Ratio Lipase (73-393) U/L Urine Color Urine Appearance (Clear) Urine pH (4.5-7.5) Ur Specific [place] (1.000-1.030) Urine Protein (Negative) Urine Glucose (UA) (Negative) Urine Ketones (Negative) Urine Blood (Negative) Urine Nitrite (Negative) Urine Bilirubin (Negative) Urine Urobilinogen (Negative) Ur Leukocyte Esterase (Negative) Nasal Screen MRSA (PCR) (Negative) COVID-19 Eval Order SARS-CoV-2 (PCR) (Negative) Influenza Type A (PCR) (Neg) Influenza Type B (PCR) (Neg) RSV (RT-PCR) (Neg) 01/17/21 01/17/21 01/18/21 Range/Units 16:47 20:14 05:37 WBC 8.75 (4.8-10.8) K/uL RBC 4.60 L (4.7-6.1) M/uL Hgb 13.8 L (14.0-18.0) g/dL Hct 40.1 L (42-52) % MCV 87.2 (80-100) fL MCH 30.0 (25-34) pg MCHC 34.4 (32-36) g/dL RDW Std Deviation 46.2 (36.4-46.3) fL RDW Coeff of Brice 14.5 (11.5-14.5) % Plt Count 167 (130-400) K/uL MPV 11.6 H (7.4-10.4) fL Immature Gran % (Auto) 0.3 % Neut % (Auto) 71.3 % Lymph % (Auto) 17.0 % Meagher % (Auto) 7.4 % Eos % (Auto) 3.7 % Baso % (Auto) 0.3 % Neut # (Auto) 6.23 (1.4-6.5) K/uL Lymph # (Auto) 1.49 (1.2-3.4) K/uL Meagher # (Auto) 0.65 H (0.11-0.59) K/uL Eos # (Auto) 0.32 (0-0.5) K/uL Baso # (Auto) 0.03 (0-0.2) K/uL Immature Gran # (Auto) 0.03 H (0.00-0.02) K/uL PT (9.0-12.0) Seconds INR (0.9-1.1) APTT (21.0-31.0) Seconds PTT Ratio Sodium (136-145) mmol/L Potassium (3.5-5.1) mmol/L Chloride (98-107) mmol/L Carbon Dioxide (21-32) mmol/L Anion Gap (3-11) BUN (7-18) mg/dl Creatinine (0.6-1.4) mg/dl Est Cr Clr Drug Dosing ml/min Est GFR ( Amer) Est GFR (Non-Af Amer) BUN/Creatinine Ratio (10-20) Glucose (70-99) mg/dl POC Glucose 128 H 141 H (70-99) mg/dl Estimat Average Glucose mg/dl Hemoglobin A1c (4.5-5.6) % Calcium (8.5-10.1) mg/dl Phosphorus (2.5-4.9) mg/dl Magnesium (1.8-2.4) mg/dl Total Bilirubin (0.2-1) mg/dl AST (15-37) U/L ALT (12-78) U/L Alkaline Phosphatase (45-117) U/L Total Creatine Kinase (39-308) U/L CK-MB (CK-2) (0.5-3.6) ng/ml CK/CKMB % Calc (0-3.0) Troponin I (0-0.045) ng/ml Total Protein (6.4-8.2) gm/dl Albumin (3.4-5.0) gm/dl Globulin (2.5-4.0) gm/dl Albumin/Globulin Ratio (0.9-2) Triglycerides (0-150) mg/dl Cholesterol (0-200) mg/dl LDL Cholesterol, Calc mg/dl VLDL Cholesterol, Calc mg/dl HDL Cholesterol mg/dl Cholesterol/HDL Ratio Lipase (73-393) U/L Urine Color Urine Appearance (Clear) Urine pH (4.5-7.5) Ur Specific [place] (1.000-1.030) Urine Protein (Negative) Urine Glucose (UA) (Negative) Urine Ketones (Negative) Urine Blood (Negative) Urine Nitrite (Negative) Urine Bilirubin (Negative) Urine Urobilinogen (Negative) Ur Leukocyte Esterase (Negative) Nasal Screen MRSA (PCR) (Negative) COVID-19 Eval Order SARS-CoV-2 (PCR) (Negative) Influenza Type A (PCR) (Neg) Influenza Type B (PCR) (Neg) RSV (RT-PCR) (Neg) 01/18/21 01/18/21 01/18/21 Range/Units 05:37 07:15 11:15 WBC (4.8-10.8) K/uL RBC (4.7-6.1) M/uL Hgb (14.0-18.0) g/dL Hct (42-52) % MCV (80-100) fL MCH (25-34) pg MCHC (32-36) g/dL RDW Std Deviation (36.4-46.3) fL RDW Coeff of Brice (11.5-14.5) % Plt Count (130-400) K/uL MPV (7.4-10.4) fL Immature Gran % (Auto) % Neut % (Auto) % Lymph % (Auto) % Meagher % (Auto) % Eos % (Auto) % Baso % (Auto) % Neut # (Auto) (1.4-6.5) K/uL Lymph # (Auto) (1.2-3.4) K/uL Meagher # (Auto) (0.11-0.59) K/uL Eos # (Auto) (0-0.5) K/uL Baso # (Auto) (0-0.2) K/uL Immature Gran # (Auto) (0.00-0.02) K/uL PT (9.0-12.0) Seconds INR (0.9-1.1) APTT (21.0-31.0) Seconds PTT Ratio Sodium 140 (136-145) mmol/L Potassium 4.1 (3.5-5.1) mmol/L Chloride 112 H (98-107) mmol/L Carbon Dioxide 22 (21-32) mmol/L Anion Gap 6.0 (3-11) BUN 21 H (7-18) mg/dl Creatinine 1.56 H (0.6-1.4) mg/dl Est Cr Clr Drug Dosing 38.3 ml/min Est GFR ( Amer) 49.6 Est GFR (Non-Af Amer) 42.8 BUN/Creatinine Ratio 13.6 (10-20) Glucose 126 H (70-99) mg/dl POC Glucose 115 H 148 H (70-99) mg/dl Estimat Average Glucose mg/dl Hemoglobin A1c (4.5-5.6) % Calcium 8.8 (8.5-10.1) mg/dl Phosphorus (2.5-4.9) mg/dl Magnesium (1.8-2.4) mg/dl Total Bilirubin (0.2-1) mg/dl AST (15-37) U/L ALT (12-78) U/L Alkaline Phosphatase (45-117) U/L Total Creatine Kinase (39-308) U/L CK-MB (CK-2) (0.5-3.6) ng/ml CK/CKMB % Calc (0-3.0) Troponin I (0-0.045) ng/ml Total Protein (6.4-8.2) gm/dl Albumin (3.4-5.0) gm/dl Globulin (2.5-4.0) gm/dl Albumin/Globulin Ratio (0.9-2) Triglycerides (0-150) mg/dl Cholesterol (0-200) mg/dl LDL Cholesterol, Calc mg/dl VLDL Cholesterol, Calc mg/dl HDL Cholesterol mg/dl Cholesterol/HDL Ratio Lipase (73-393) U/L Urine Color Urine Appearance (Clear) Urine pH (4.5-7.5) Ur Specific [place] (1.000-1.030) Urine Protein (Negative) Urine Glucose (UA) (Negative) Urine Ketones (Negative) Urine Blood (Negative) Urine Nitrite (Negative) Urine Bilirubin (Negative) Urine Urobilinogen (Negative) Ur Leukocyte Esterase (Negative) Nasal Screen MRSA (PCR) (Negative) COVID-19 Eval Order SARS-CoV-2 (PCR) (Negative) Influenza Type A (PCR) (Neg) Influenza Type B (PCR) (Neg) RSV (RT-PCR) (Neg) Administered Medications Apixaban (Apixaban 5 Mg Tablet) 5 mg PO BID [facility] Stop: 02/17/21 20:59 Last Admin: 01/20/21 08:59 Dose: 5 mg Documented by: [id number] Admin: 01/19/21 20:30 Dose: 5 mg Documented by: [id number] Admin: 01/19/21 07:52 Dose: 5 mg Documented by: [id number] Admin: 01/18/21 20:35 Dose: 5 mg Documented by: [id number] Aspirin (Aspirin 81 Mg Ectab) [facility] [place]: 02/16/21 08:59 Last Admin: 01/20/21 09:00 Dose: 81 mg Documented by: [id number] Admin: 01/19/21 07:52 Dose: 81 mg Documented by: [id number] Admin: 01/18/21 08:15 Dose: 81 mg Documented by: [id number] Admin: 01/17/21 08:13 Dose: 81 mg Documented by: [id number] Ezetimibe (Ezetimibe 10 Mg Tablet) 10 mg PO [facility] Stop: 02/16/21 08:59 Last Admin: 01/20/21 09:00 Dose: 10 mg Documented by: [id number] Admin: 01/19/21 07:52 Dose: 10 mg Documented by: [id number] Admin: 01/18/21 08:15 Dose: 10 mg Documented by: [id number] Admin: 01/17/21 08:13 Dose: 10 mg Documented by: [id number] Fenofibrate (Fenofibrate Nanocrystallized 48 Mg Tablet) 48 mg PO [facility] Stop: 02/16/21 08:59 Last Admin: 01/20/21 08:59 Dose: 48 mg Documented by: [id number] Admin: 01/19/21 07:52 Dose: 48 mg Documented by: [id number] Admin: 01/18/21 08:15 Dose: 48 mg Documented by: [id number] Admin: 01/17/21 08:13 Dose: 48 mg Documented by: [id number] Ferrous Sulfate (Ferrous Sulfate 325 Mg Tab) 325 mg PO [facility] Stop: 02/19/21 10:59 Last Admin: 01/20/21 11:30 Dose: 325 mg Documented by: [id number] Insulin Aspart (Insulin Aspart 100 Units/Ml 3 Ml Pen) 0 units SC [facility] Stop: 02/16/21 07:29 Last Admin: 01/20/21 12:16 Dose: 5 units Documented by: [id number] Cosigned by: [id number] Admin: 01/20/21 09:02 Dose: 2 units Documented by: [id number] Cosigned by: [id number] Admin: 01/19/21 21:02 Dose: 1 units Documented by: [id number] Cosigned by: [id number] Admin: 01/19/21 17:29 Dose: Not Given Documented by: [id number] Admin: 01/19/21 11:50 Dose: Not Given Documented by: [id number] Admin: 01/19/21 07:58 Dose: Not Given Documented by: [id number] Admin: 01/18/21 20:57 Dose: Not Given Documented by: [id number] Cosigned by: [id number] Admin: 01/18/21 17:22 Dose: Not Given Documented by: [id number] Admin: 01/18/21 12:17 Dose: Not Given Documented by: [id number] Admin: 01/18/21 08:22 Dose: Not Given Documented by: [id number] Admin: 01/17/21 21:45 Dose: Not Given Documented by: [id number] Cosigned by: [id number] Admin: 01/17/21 18:04 Dose: Not Given Documented by: [id number] Admin: 01/17/21 14:10 Dose: Not Given Documented by: [id number] Admin: 01/17/21 07:53 Dose: Not Given Documented by: [id number] Melatonin (Melatonin 3 Mg Tab) 3 mg PO HS PRN PRN Reason: Sleep Stop: 02/16/21 21:55 Last Admin: 01/19/21 00:06 Dose: 3 mg Documented by: [id number] Admin: 01/17/21 23:39 Dose: 3 mg Documented by: [id number] Metoprolol Tartrate (Metoprolol Tartrate 25 Mg Tab) 25 mg PO BID RUPINDER Stop: 02/18/21 20:59 Last Admin: 01/20/21 08:59 Dose: 25 mg Documented by: [id number] Admin: 01/19/21 21:02 Dose: 25 mg Documented by: [id number] Pantoprazole Sodium (Pantoprazole 40 Mg Tab) 40 mg PO QAM RUPINDER Stop: 02/16/21 08:59 Last Admin: 01/20/21 09:00 Dose: 40 mg Documented by: [id number] Admin: 01/19/21 07:52 Dose: 40 mg Documented by: [id number] Admin: 01/18/21 08:15 Dose: 40 mg Documented by: [id number] Admin: 01/17/21 08:13 Dose: 40 mg Documented by: [id number] Polyethylene Glycol (Polyethylene (Miralax) 17 Gm Pack) 17 gm PO DAILY PRN PRN Reason: Constipation Stop: 02/18/21 15:45 Last Admin: 01/19/21 16:46 Dose: 17 gm Documented by: [id number] Ropinirole HCl (Ropinirole Hcl 0.25 Mg Tablet) 0.5 mg PO QPM RUPINDER Stop: 02/16/21 20:59 Last Admin: 01/19/21 20:30 Dose: 0.5 mg Documented by: [id number] Admin: 01/18/21 20:34 Dose: 0.5 mg Documented by: [id number] Admin: 01/17/21 21:25 Dose: 0.5 mg Documented by: [id number] Discontinued Medications Gadobutrol (Gadobutrol 65ml Vial) 7.5 ml IV ONCE ONE Stop: 01/17/21 09:41 Last Admin: 01/17/21 09:40 Dose: 7.5 ml Documented by: [id number] Magnesium Sulfate/Dextrose (Magnesium Sulfate / D5w) 1 gm in 100 mls @ 100 mls/hr IV NOW STA Stop: 01/17/21 01:11 Last Infusion: 01/17/21 01:04 Dose: 0 mls/hr Documented by: [id number] Admin: 01/17/21 00:38 Dose: 100 mls/hr Documented by: [id number] Sodium Chloride (Nss) 500 mls @ 999 mls/hr IV .Q31M ONE Stop: 01/17/21 00:42 Last Infusion: 01/17/21 01:04 Dose: 0 mls/hr Documented by: [id number] Admin: 01/17/21 00:38 Dose: 999 mls/hr Documented by: [id number] Lorazepam (Ativan) 0.5 mg in 1 mls @ 1 mls/min IV NOW STA Stop: 01/17/21 08:27 Last Admin: 01/17/21 08:52 Dose: 1 mls/min Documented by: [id number] Ioversol (Optiray 350 500ml) 125 ml IV ONCE ONE Stop: 01/17/21 00:14 Last Admin: 01/17/21 00:14 Dose: 119 ml Documented by: [id number] Lisinopril (Lisinopril 5 Mg Tab) [facility] Stop: 02/19/21 08:59 Last Admin: 01/20/21 08:59 Dose: 5 mg Documented by: [id number] Lisinopril (Lisinopril 5 Mg Tab) 5 mg PO NOW ONE Stop: 01/20/21 10:53 Last Admin: 01/20/21 11:30 Dose: 5 mg Documented by: [id number] Ropinirole HCl (Ropinirole Hcl 0.25 Mg Tablet) 0.5 mg PO NOW STA Stop: 01/17/21 02:07 Last Admin: 01/17/21 02:19 Dose: 0.5 mg Documented by: [id number] Discharge Plan Visit Data Chief Complaint: Chest Pain Stated Complaint: CHEST PAIN,LEFT ARM AND NECK HARD TO MOVE ED Provider: Amando Winslow Discharge Problem: Acute left-sided weakness Patient Disposition: Admitted As Inpatient Discharge Instructions Interventions: ED Discharge Assessment Last Done: 01/17/21 02:17
[2021-01-17] MEDS ORDERED: MAGNESIUM SULFATE / D5W 1 GM/100 ML BAG IV STA (00:12)
[2021-01-17] MEDS ORDERED: SODIUM CHLORIDE 0.9% 500 ML IV ONE (00:12)
[2021-01-17] MEDS ORDERED: OPTIRAY 350 500ml IV ONE (00:13)
[2021-01-17 00:21] LABS: Basophils # (auto) 0.04 K/uL (0-0.2); Basophils % (auto) 0.4 %; Eosinophils # (auto) 0.17 K/uL (0-0.5); Eosinophils % (auto) 1.8 %; Hematocrit (blood only) 41.7 % (42-52); Hemoglobin 14.4 g/dL (14.0-18.0); Immature Granulocytes # (auto) 0.06 K/uL (0.00-0.02); Immature Granulocytes % (auto) 0.7 %; Lymphocytes # (auto) 1.72 K/uL (1.2-3.4); Lymphocytes % (auto) 18.6 %; Mean Corpuscular Hemoglobin 30.3 pg (25-34); Mean Corpuscular Hgb Conc 34.5 g/dL (32-36); Mean Corpuscular Volume 87.8 fL (80-100); Mean Platelet Volume 11.3 fL (7.4-10.4); Monocytes # (auto) 0.76 K/uL (0.11-0.59); Monocytes % (auto) 8.2 %; Neutrophils # (auto) 6.48 K/uL (1.4-6.5); Neutrophils % (auto) 70.3 %; Platelet Count 187 K/uL (130-400); RDW Coefficient of Variation 14.4 % (11.5-14.5); RDW Standard Deviation 46.8 fL (36.4-46.3); Red Blood Count 4.75 M/uL (4.7-6.1); White Blood Count 9.23 K/uL (4.8-10.8)
[2021-01-17 00:39] LABS: Alanine Aminotransferase 25 U/L (12-78); Albumin Level 3.7 gm/dl (3.4-5.0); Aspartate Aminotransferase 16 U/L (15-37); Blood Urea Nitrogen 24 mg/dl (7-18); Carbon Dioxide 23 mmol/L (21-32); Chloride 112 mmol/L (98-107); Creatinine Clr Calc Pharmacy 29.8 ml/min; Est GFR (African American) 36.7; Est GFR (Non-African American) 31.7; Glucose 170 mg/dl (70-99); Lipase 204 U/L (73-393); Potassium 4.1 mmol/L (3.5-5.1); Sodium 140 mmol/L (136-145)
[2021-01-17 00:44] LABS: Albumin Globulin Ratio 1.2 (0.9-2); Alkaline Phosphatase 67 U/L (45-117); Bilirubin,Total 0.3 mg/dl (0.2-1); Creatine Kinase 79 U/L (39-308); Creatine Kinase MB 1.2 ng/ml (0.5-3.6); Globulin 3.1 gm/dl (2.5-4.0); Total Protein 6.8 gm/dl (6.4-8.2); Troponin I < 0.015 ng/ml (0-0.045)
[2021-01-17 00:59] LABS: Partial Thromboplastin Ratio 1.1; Partial Thromboplastin Time 29.3 Seconds (21.0-31.0); Prothrombin Time 10.6 Seconds (9.0-12.0)
[2021-01-17 01:24] LABS: Influenza A virus by PCR Negative (Neg); Influenza B virus by PCR Negative (Neg); RSV by PCR Negative (Neg); SARS CoV2 RNA(COVID-19) InHosp NEGATIVE (Negative)
[2021-01-17 01:30] LABS: Appearance Urine Clear (Clear); Bilirubin Urine Negative (Negative); Blood Urine Negative (Negative); Color Urine Yellow; Glucose Urine UA Negative (Negative); Ketones Urine Negative (Negative); Leukocyte Esterase Urine Negative (Negative); Nitrite Urine Negative (Negative); Protein Urine Negative (Negative); Specific Gravity Urine > 1.045 (1.000-1.030); Urobilinogen Urine Negative (Negative); pH Urine 5.5 (4.5-7.5)
[2021-01-17] MEDS ORDERED: rOPINIRole HCL 0.25 MG TABLET PO STA (02:06)
--- NOTE | 2021-01-17 02:27 | History & Physical Report ---
Date of Service January 17, 2021 Assessment & Plan (1) Left-sided weakness: Patient with weakness of LUE that began at appx 20:30 last night. Symptoms are waxing and waning. Also states that his "legs feel rubbery", bilaterally. History of CAD s/p CABG, HTN/HLP/DM/CKD and prior TIA -Admit to medical with telemetry -Check MRI brain, 2 D echo -PT/OT evaluation -Neuro consultation appreciated Case was discussed with Neurology team at [facility] - Dr. Padilla who thinks patient may be a candidate for neuro-intervention in the future. Case to be discussed with interventionalist, Dr. Justice. Present on Admission?: Yes (2) HTN (hypertension): Blood pressure well controlled at present -Hold Lisinopril and Metoprolol to allow for permissive hypertension -Continue to monitor Present on Admission?: Yes (3) GERD (gastroesophageal reflux disease): Chronic. Stable -Continue Omeprazole Present on Admission?: Yes (4) CAD (coronary artery disease): Patient with CAD s/p CABG x 3V performed at [facility] in August 2020 (MUNIZ to LAD and SVG to RCA and SVG to OM). Patient has seen Cardiology at [facility] in followup on 10/30/20. He denies chest pain, palpitations. Troponin is negative. EKG with NSR, no acute ischemic changes. -Admission to medical with telemetry monitoring -Continue ASA 81mg po daily -Continue Ezetimibe and Fenofibrate -Hold Lisinopril and Metoprolol for now to allow for permissive hypertension in setting of possible TIA/CVA -2D echo as above Present on Admission?: Yes (5) CKD (chronic kidney disease) stage 3, GFR 30-59 ml/min: BUN=24, Cr=2 which is near baseline -Avoid nephrotoxic agents -Monitor renal function Present on Admission?: Yes (6) DM (diabetes mellitus): Diet controlled. HgBA1C in August 2020 = 6.7. Blood sugar currently within target range - 120 -ISS -Goal blood sugar 140 - 180 Present on Admission?: Yes (7) Hypertriglyceridemia: Chronic. Patient is statin-intolerant -Continue Fenofibrate -Continue Ezetimibe Present on Admission?: Yes (8) Restless leg syndrome: Chronic. Patient states that his symptoms have been very severe lately -Continue Ropinirole, consider increased dosing Present on Admission?: Yes (9) Atrial fibrillation: Patient with post-operative atrial flutter previously on Amiodarone which has since been discontinued. Currently in NSR. Anticoagulated with Eliquis 5mg po BID -Hold Eliquis 5mg po BID for now -Holding Metoprolol for now F/E/N - Heplock. Electrolytes WNL, check Mg and PO4 x 1 and replete as needed, Heart heatlhy/AHA diet as tolerated Ppx - Patient on Apixaban Code - Full per discussion with patient Dispo -Admit to medical with telemetry Present on Admission?: Yes History of Present Illness Chief Complaint: LUE weakness Primary Care Provider: DO Shailesh Muñoz Marisela is a pleasant 75yo C male with history of CAD s/p CABG x 3V performed August 2020 at [facility], TIA x 2, CKD/DM/HTN/HLP. Patient was watching TV this evening at tried to corn picker the remote with his LUE and states that it felt heavy and poorly coordinated. He has had intermittent weakness of the LUE. Also states that his legs felt "rubbery" and he had unsteady balance. He has pain in the left neck. He denies MERAZ, visual disturbance No additional complaints at this time. Allergies Allergy/AdvReac Type Severity Reaction Status Date / Time niacin Allergy Unknown ARTHRALGIAS Verified 01/17/21 00:14 FROM ADVICOR telithromycin Allergy Unknown ARTHRALGIAS Verified 01/17/21 00:14 FROM ADVICOR atorvastatin AdvReac Intermediate Muscle Pain Verified 01/17/21 00:14 lovastatin AdvReac Intermediate ARTHRALGIAS Verified 01/17/21 00:14 FROM ADVICOR [id number]-[id number]-Mzp Reductase AdvReac Intermediate Muscle Pain Verified 01/17/21 00:14 Inhibitor STERIODS Allergy Unknown Unknown Uncoded 01/17/21 00:14 Home Medications Medication Instructions Recorded Confirmed Type aspirin 81 mg PO QAM 08/08/18 01/17/21 History multivitamin 1 tab PO QAM 08/08/18 01/17/21 History ezetimibe 10 mg PO QAM 11/11/19 01/17/21 History fenofibrate nanocrystallized 48 mg PO QAM 11/27/20 01/17/21 History apixaban [Eliquis] 5 mg PO BID 01/17/21 01/17/21 History ferrous sulfate 325 mg PO QAM 01/17/21 01/17/21 History lisinopril 20 mg PO QAM 01/17/21 01/17/21 History metoprolol succinate 25 mg PO QPM 01/17/21 01/17/21 History omeprazole 20 mg PO QAM 01/17/21 01/17/21 History ropinirole 0.5 mg PO QPM 01/17/21 01/17/21 History Past Med/Surg History Medical History Accidental drug overdose Atelectasis 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 Restless leg syndrome TIA (transient ischemic attack) Type II diabetes mellitus Surgical History H/O knee surgery stent behind left knee 2017 H/O vasectomy History of angioplasty of peripheral vessel LLE angiogram with [facility] popliteal 05/23/2018 Hx of colonoscopy 2017 S/P CABG x 3 Family History Grandfather Colorectal cancer Mother Diabetes Hypertension Brother Stroke Social History Smoking Status: Former smoker Tobacco Type: Cigarettes Second Hand Exposure: No; Do You Dip or Chew Tobacco: No; Hx Alcohol Use: Yes Alcohol type: beer Hx Substance Use: No Preferred Language: Lithuanian Communication Ability: Effective Popcorn Vendor Required: No Beliefs That Will Affect Care: None marital status: / Current Living Situation: Alone current occupational status: retired Other Information That Helps Us Care for You: No Feels Safe at Home: Yes Safety Concerns: Feels Safe At This Time Assistive Devices: Glasses, Hearing Aid - Left and Hearing Aid - Right Review of Systems Review of Systems: All systems reviewed & are unremarkable except as noted in HPI & below Denies MERAZ, visual disturbance, speech difficulty Denies CP/Palpitations/Abdominal pain/nausea/vomiting/diarrhea/constipation Physical Exam Physical Exam: General: patient resting comfortably, NAD, non-toxic in appearance, AA&O x 4, anxious Skin: warm, dry, intact, no rashes or lesions HEENT: NC/AT, PERRL, EOMI, anicteric sclera, conjunctiva without injection, external ear normal to inspection and nontender, nares patent, moist mucus membranes, dentition intact, no oropharyngeal lesions, neck supple, trachea midline, no LAD, no thyromegaly, no JVD Heart: +S1/S2, regular, no m/r/g, well healed sternotomy scar with stable sternum on palpation Lungs: equal air entry bilaterally, no rales/rhonchi/wheezes Abd: +BS, soft, NT/ND, no masses/organomegaly/ascites Ext: warm, 2+ pulses in UE/LE bilaterally, no clubbing/cyanosis or edema Neuro: Pt AA&O x 4, speech clear, no facial droop, CN II - XII initact, sensation to light touch intact, MS in LUE diminished 4/5, [id number] LUE with dysmetria, +Left drift Results & Data Results & Data ([facility]) Vital Signs (Past 12 Hours) Vital Signs Temp Pulse Pulse Resp BP BP Pulse Ox 01/17/21 01:01 89 18 138/68 99 01/17/21 00:36 94 H 16 131/73 98 01/17/21 00:29 98 01/16/21 23:49 36.7 C 113 H 16 125/79 98 Laboratory Results Lab Results 01/17/21 01/17/21 01/17/21 Range/Units 00:13 00:14 00:14 WBC 9.23 (4.8-10.8) K/uL RBC 4.75 (4.7-6.1) M/uL Hgb 14.4 (14.0-18.0) g/dL Hct 41.7 L (42-52) % MCV 87.8 (80-100) fL MCH 30.3 (25-34) pg MCHC 34.5 (32-36) g/dL RDW Std Deviation 46.8 H (36.4-46.3) fL RDW Coeff of Brice 14.4 (11.5-14.5) % Plt Count 187 (130-400) K/uL MPV 11.3 H (7.4-10.4) fL Immature Gran % (Auto) 0.7 % Neut % (Auto) 70.3 % Lymph % (Auto) 18.6 % [place] % (Auto) 8.2 % Eos % (Auto) 1.8 % Baso % (Auto) 0.4 % Neut # (Auto) 6.48 (1.4-6.5) K/uL Lymph # (Auto) 1.72 (1.2-3.4) K/uL [place] # (Auto) 0.76 H (0.11-0.59) K/uL Eos # (Auto) 0.17 (0-0.5) K/uL Baso # (Auto) 0.04 (0-0.2) K/uL Immature Gran # (Auto) 0.06 H (0.00-0.02) K/uL PT 10.6 (9.0-12.0) Seconds INR 1.0 (0.9-1.1) APTT 29.3 (21.0-31.0) Seconds PTT Ratio 1.1 Sodium 140 (136-145) mmol/L Potassium 4.1 (3.5-5.1) mmol/L Chloride 112 H (98-107) mmol/L Carbon Dioxide 23 (21-32) mmol/L Anion Gap 6.0 (3-11) BUN 24 H (7-18) mg/dl Creatinine 2.00 H (0.6-1.4) mg/dl Est Cr Clr Drug Dosing 29.8 ml/min Est GFR ( Amer) 36.7 Est GFR (Non-Af Amer) 31.7 BUN/Creatinine Ratio 12.0 (10-20) Glucose 170 H (70-99) mg/dl Calcium 9.0 (8.5-10.1) mg/dl Total Bilirubin 0.3 (0.2-1) mg/dl AST 16 (15-37) U/L ALT 25 (12-78) U/L Alkaline Phosphatase 67 (45-117) U/L Total Creatine Kinase 79 (39-308) U/L CK-MB (CK-2) 1.2 (0.5-3.6) ng/ml CK/CKMB % Calc 1.5 (0-3.0) Troponin I < 0.015 (0-0.045) ng/ml Total Protein 6.8 (6.4-8.2) gm/dl Albumin 3.7 (3.4-5.0) gm/dl Globulin 3.1 (2.5-4.0) gm/dl Albumin/Globulin Ratio 1.2 (0.9-2) Lipase 204 (73-393) U/L Urine Color Urine Appearance (Clear) Urine pH (4.5-7.5) Ur Specific [place] (1.000-1.030) Urine Protein (Negative) Urine Glucose (UA) (Negative) Urine Ketones (Negative) Urine Blood (Negative) Urine Nitrite (Negative) Urine Bilirubin (Negative) Urine Urobilinogen (Negative) Ur Leukocyte Esterase (Negative) COVID-19 Eval Order SARS-CoV-2 (PCR) (Negative) Influenza Type A (PCR) (Neg) Influenza Type B (PCR) (Neg) RSV (RT-PCR) (Neg) 01/17/21 01/17/21 01/17/21 Range/Units 00:19 00:19 01:21 WBC (4.8-10.8) K/uL RBC (4.7-6.1) M/uL Hgb (14.0-18.0) g/dL Hct (42-52) % MCV (80-100) fL MCH (25-34) pg MCHC (32-36) g/dL RDW Std Deviation (36.4-46.3) fL RDW Coeff of Brice (11.5-14.5) % Plt Count (130-400) K/uL MPV (7.4-10.4) fL Immature Gran % (Auto) % Neut % (Auto) % Lymph % (Auto) % [place] % (Auto) % Eos % (Auto) % Baso % (Auto) % Neut # (Auto) (1.4-6.5) K/uL Lymph # (Auto) (1.2-3.4) K/uL [place] # (Auto) (0.11-0.59) K/uL Eos # (Auto) (0-0.5) K/uL Baso # (Auto) (0-0.2) K/uL Immature Gran # (Auto) (0.00-0.02) K/uL PT (9.0-12.0) Seconds INR (0.9-1.1) APTT (21.0-31.0) Seconds PTT Ratio Sodium (136-145) mmol/L Potassium (3.5-5.1) mmol/L Chloride (98-107) mmol/L Carbon Dioxide (21-32) mmol/L Anion Gap (3-11) BUN (7-18) mg/dl Creatinine (0.6-1.4) mg/dl Est Cr Clr Drug Dosing ml/min Est GFR ( Amer) Est GFR (Non-Af Amer) BUN/Creatinine Ratio (10-20) Glucose (70-99) mg/dl Calcium (8.5-10.1) mg/dl Total Bilirubin (0.2-1) mg/dl AST (15-37) U/L ALT (12-78) U/L Alkaline Phosphatase (45-117) U/L Total Creatine Kinase (39-308) U/L CK-MB (CK-2) (0.5-3.6) ng/ml CK/CKMB % Calc (0-3.0) Troponin I (0-0.045) ng/ml Total Protein (6.4-8.2) gm/dl Albumin (3.4-5.0) gm/dl Globulin (2.5-4.0) gm/dl Albumin/Globulin Ratio (0.9-2) Lipase (73-393) U/L Urine Color Yellow Urine Appearance Clear (Clear) Urine pH 5.5 (4.5-7.5) Ur Specific [place] > 1.045 H (1.000-1.030) Urine Protein Negative (Negative) Urine Glucose (UA) Negative (Negative) Urine Ketones Negative (Negative) Urine Blood Negative (Negative) Urine Nitrite Negative (Negative) Urine Bilirubin Negative (Negative) Urine Urobilinogen Negative (Negative) Ur Leukocyte Esterase Negative (Negative) COVID-19 Eval Order [facility]Rsv at [facility] SARS-CoV-2 (PCR) NEGATIVE (Negative) Influenza Type A (PCR) Negative (Neg) Influenza Type B (PCR) Negative (Neg) RSV (RT-PCR) Negative (Neg) Diagnostic Findings CT Head: no acute intracranial hemorrhage. Severe confluent white matter hypoattenuation is similar to prior, likely related to chronic small vessel ischemic disease. CTA Head: No evidence of vessel occlusion. Moderate to severe stenosis of bilaterl MCA M1 segments and left MCA M2 inferior division. [place] anterior cerebral artery and there is moderate to severe stenosis at its distal A2 segment. Moderate stenosis of basilar artery. These stenoses are new or significantly progressed from prior. Severe stenosis of right posterior cerebral artery P1/P2 segment is improved from prior. Severe stenosis of left posterior cerebral artery P1 segment similar to prior. Mural calcifications of bilateral cavernous and supraclinoid internal carotid arteries and of the left vertebral artery. Mild resulting stenosis of the supraclinoid segments and moderate stenosis of th eleft vertebral artery V4 segment. CTA Neck: No evidence of vascular occlusion. Atherosclerotic plaque of the carotid bifurcations w/o HD significant stenosis. Mural calcifications at bilateral vertebral artery origins with mild resulting stenosis on right posterior sternotomy. Biapical scarring calcified granuloma in JUNAID PG Care Time/CCT Total # of Minutes Spent Total Time Spent with Patient: Total time spent is greater than 50% in coordination of care (as documented) at patient's floor/unit and/or counseling patient: Coding Level of Care Code 97852 OBS Care - Level 3 Diagnoses Left-sided weakness R53.1 HTN (hypertension) I10 Hypertension type: essential hypertension GERD (gastroesophageal reflux disease) K21.9 Esophagitis presence: esophagitis presence not specified CAD (coronary artery disease) I25.110 Associated angina: with unstable angina Coronary Disease-Associated Artery/Lesion type: [place] artery [place] vs. transplanted heart: [place] heart CKD (chronic kidney disease) stage 3, GFR 30-59 ml/min N18.30 Chronic kidney disease stage 3 subtype: unspecified whether 3a or 3b DM (diabetes mellitus) E11.9 Diabetes mellitus complication status: without complication Diabetes mellitus terminal clerk insulin use: without terminal clerk use Diabetes mellitus type: type 2 Hypertriglyceridemia E78.1 Restless leg syndrome G25.81 Atrial fibrillation I48.0 Atrial fibrillation type: paroxysmal (1) DM (diabetes mellitus) Diabetes mellitus complication status: without complication Diabetes mellitus terminal clerk insulin use: without terminal clerk use Diabetes mellitus type: type 2 Qualified Code(s): E11.9 - Type 2 diabetes mellitus without complications (2) CKD (chronic kidney disease) stage 3, GFR 30-59 ml/min Chronic kidney disease stage 3 subtype: unspecified whether 3a or 3b Qualified Code(s): N18.30 - Chronic kidney disease, stage 3 unspecified (3) CAD (coronary artery disease) Associated angina: with unstable angina Coronary Disease-Associated Artery/Lesion type: [place] artery [place] vs. transplanted heart: [place] heart Qualified Code(s): I25.110 - Atherosclerotic heart disease of [place] coronary artery with unstable angina pectoris (4) Atrial fibrillation Atrial fibrillation type: paroxysmal Qualified Code(s): I48.0 - Paroxysmal atrial fibrillation (5) GERD (gastroesophageal reflux disease) Esophagitis presence: esophagitis presence not specified Qualified Code(s): K21.9 - Gastro-esophageal reflux disease without esophagitis (6) HTN (hypertension) Hypertension type: essential hypertension Qualified Code(s): I10 - Essential (primary) hypertension
[2021-01-17] MEDS ORDERED: CARBOHYDRATES FOR HYPOGLYCEMIA PO PRN (02:39)
[2021-01-17] MEDS ORDERED: ACETAMINOPHEN 325 MG TAB PO PRN (02:39)
[2021-01-17] MEDS ORDERED: GLUCOSE 10 TABS/TUBE PO PRN (02:39)
[2021-01-17] MEDS ORDERED: ONDANSETRON INJ 2 MG/ML 2 ML VIAL IV PRN (02:39)
[2021-01-17] MEDS ORDERED: GLUCOSE 40% GEL 15 GM TUBE PO PRN (02:39)
[2021-01-17] MEDS ORDERED: DEXTROSE 50% 50 ML SYRINGE IV PRN (02:39)
[2021-01-17] MEDS ORDERED: GLUCAGON FOR INJ 1 MG VIAL SQ PRN (02:39)
[2021-01-17 03:00] LABS: Magnesium 2.2 mg/dl (1.8-2.4); Phosphorus 3.1 mg/dl (2.5-4.9)
[2021-01-17 04:56] LABS: Basophils # (auto) 0.04 K/uL (0-0.2); Basophils % (auto) 0.5 %; Eosinophils # (auto) 0.23 K/uL (0-0.5); Eosinophils % (auto) 2.8 %; Hematocrit (blood only) 38.2 % (42-52); Immature Granulocytes # (auto) 0.04 K/uL (0.00-0.02); Immature Granulocytes % (auto) 0.5 %; Lymphocytes # (auto) 2.08 K/uL (1.2-3.4); Lymphocytes % (auto) 25.5 %; Mean Corpuscular Hemoglobin 29.9 pg (25-34); Mean Corpuscular Volume 87.8 fL (80-100); Mean Platelet Volume 11.6 fL (7.4-10.4); Monocytes % (auto) 7.3 %; Neutrophils # (auto) 5.18 K/uL (1.4-6.5); Neutrophils % (auto) 63.4 %; Platelet Count 167 K/uL (130-400); RDW Coefficient of Variation 14.3 % (11.5-14.5); RDW Standard Deviation 46.4 fL (36.4-46.3); Red Blood Count 4.35 M/uL (4.7-6.1); White Blood Count 8.17 K/uL (4.8-10.8)
[2021-01-17 05:14] LABS: BUN Creatinine Ratio 13.1 (10-20); Calcium 8.4 mg/dl (8.5-10.1); Creatinine Clr Calc Pharmacy 33.7 ml/min; Est GFR (African American) 42.6; Est GFR (Non-African American) 36.8; Potassium 4.4 mmol/L (3.5-5.1)
[2021-01-17 06:23] LABS: Estimated Average Glucose 148 mg/dl; Hemoglobin A1C 6.8 % (4.5-5.6)
--- NOTE | 2021-01-17 06:54 | CT Scan Report ---
CT head/brain wo con CLINICAL HISTORY: Stroke Like Symptoms COMPARISON STUDY: 10/21/2020 TECHNIQUE: Axial CT of the brain is performed from the vertex to the skull base. IV contrast was not administered for this examination. A dose lowering technique was utilized adhering to the principles of ALARA. CT DOSE: FINDINGS: No intra or extra-axial mass lesions are visualized. There is no CT evidence of acute cortical infarc tion. There is no evidence of midline shift. There is no acute hemorrhage. No calvarial fractures ar e visualized. There are moderate white matter hypodensities likely on a small vessel basis. There is no evidence of pathologic ventricular dilatation. There is no evidence of acute sinusitis IMPRESSION: No acute intracranial findings ACT 112: Negative or not required by law. Electronically signed by: Gordo Green M.D. 01/17/2021 6:53 AM
--- NOTE | 2021-01-17 07:14 | CT Scan Report ---
CT angio neck with con CLINICAL HISTORY: Stroke Like Symptoms COMPARISON STUDY: 08/09/2018 TECHNIQUE: CT angiography was performed from the aortic arch to the skull base. MIP imaging was perfo rmed. The patient was scanned in a dynamic helical fashion during intravenous administration of 119 c c of Optiray. A dose lowering technique was utilized adhering to the principles of ALARA. CT DOSE: 1353.81 mGy.cm Technique: CT angiogram of the carotid and vertebral arteries was obtained using intravenous contrast and 3-D reconstruction. NASCET criteria was utilized. Findings: There is a 45% diameter stenosis of the right internal carotid artery at the skull base. This remain similar to the prior study. There is no dissection or occlusion. The left carotid revealed no evidence of hemodynamic significant stenosis. There is no evidence of an eurysm. There is no evidence of dissection. There is calcific plaque at the level of the left carotid bifurcation without evidence of a hemodynamically significant stenosis There are bilateral distal vertebral artery stenoses, similar to the prior study. There is a proximal basilar artery stenosis. IMPRESSION: 1. Stable 45% diameter stenosis of the distal right internal carotid the level the skull base 2. Persistent bilateral distal vertebral artery stenotic lesions. 3. Proximal basilar artery stenosis. ACT 112: Negative or not required by law. Electronically signed by: Gordo Green M.D. 01/17/2021 7:13 AM
--- NOTE | 2021-01-17 07:25 | CT Scan Report ---
HEAD CTA HISTORY: Left-sided weakness. Stroke Like Symptoms TECHNIQUE: Multiaxial CT images of the head were performed both before and after the intravenous admi nistration of contrast to evaluate the major cerebral vessels. Maximum intensity projection images we re also obtained. A dose lowering technique was utilized adhering to the principles of ALARA. COMPARISON: Head CT 08/09/2018. FINDINGS: There is no mass, hematoma, midline shift, or acute infarct. There is moderate focal stenos is within the mid basilar artery. Moderate to severe stenosis within the distal right vertebral arter y and moderate stenosis within the distal left vertebral artery. Moderate focal stenosis seen within the distal A2 segment. Moderate to severe stenosis within the proximal bilateral M1 segments and at t he takeoff of the left MCA M2 inferior division. These are new or progressed compared to prior studie s. Severe stenosis within the left P1 segment, similar to prior. Calcifications within the bilateral carotid siphons are again noted. Focal area of incomplete filling within the right transverse sinus. However, the remaining dural venous sinuses are patent. No definite thrombus at this location. This i s likely transient. IMPRESSION: Multifocal areas of stenosis within the redding of [place] and distal vertebral arteries as described a barbara. This has progressed in the interval. No areas of focal vascular occlusion. ACT 112: Negative or not required by law. Electronically signed by: Chris Oliveira M.D. 01/17/2021 7:23 AM
--- NOTE | 2021-01-17 07:40 | XRay Report ---
XR chest 1V portable HISTORY: Atypical Chest Pain COMPARISON: 11/27/2020. FINDINGS: No pneumothorax. No change in the trace left pleural effusion and left basilar linear densi ties. This suggests subsegmental atelectasis or scarring. There are low lung volumes with slight elev ation the left hemidiaphragm, unchanged. The heart remains mildly enlarged. There are poststernotomy changes. Stable calcified granuloma within the left upper lobe. No evidence for pulmonary edema. The right lung is clear. IMPRESSION: No significant change compared to the prior study. Stable left basilar density/effusion. ACT 112: Negative or not required by law. Electronically signed by: Chris Oliveira M.D. 01/17/2021 7:39 AM
[2021-01-17] MEDS: INSULIN ASPART 100 UNITS/ML 3 ML PEN SC SCH ×4 (07:53→21:45)
[2021-01-17] MEDS: PANTOprazole 40 MG TAB PO SCH (08:13)
[2021-01-17] MEDS: ASPIRIN 81 MG ECTAB PO SCH (08:13)
[2021-01-17] MEDS: FENOFIBRATE NANOCRYSTALLIZED 48 MG TABLET PO SCH (08:13)
[2021-01-17] MEDS: EZETIMIBE 10 MG TABLET PO SCH (08:13)
--- NOTE | 2021-01-17 08:20 | Hospitalist Progress Note ---
Date of Service January 17, 2021 Assessment & Plan (1) Left-sided weakness: Patient with weakness of LUE that began at appx 20:30 last night. Symptoms are waxing and waning. Also states that his "legs feel rubbery", bilaterally. History of CAD s/p CABG, HTN/HLP/DM/CKD and prior TIA CTA 01/16/21 IMPRESSION: Multifocal areas of stenosis within the [place] of [place] and distal vertebral arteries as described above. This has progressed in the interval. No areas of focal vascular occlusion. 1. Stable 45% diameter stenosis of the distal right internal carotid the level the skull base 2. Persistent bilateral distal vertebral artery stenotic lesions. 3. Proximal basilar artery stenosis. MRI brain, IMPRESSION: 1. There is a 1.6 cm focus of restricted diffusion in the right smith radiata consistent with acute to subacute ischemia. 2. No additional foci of restricted diffusion are identified. 3. There is no hemorrhage or mass effect. 4. Senescent changes as above Echo relatively normal no parodoxicall embolism -PT/OT evaluation -Neuro consultation appreciated Case was discussed with Neurology [place] [facility] [place] Padilla who thinks patient may be a candidate for neuro-intervention in the future. Case to be discussed with interventionalist, Dr. Justice. (2) HTN (hypertension): Blood pressure well controlled at present -Hold Lisinopril and Metoprolol to allow for permissive hypertension -Continue to monitor (3) GERD (gastroesophageal reflux disease): Chronic. Stable -Continue Omeprazole (4) CAD (coronary artery disease): Patient with CAD s/p CABG x 3V performed at [facility] [place] (MUNIZ to LAD and SVG to RCA and SVG to OM). Patient has seen Cardiology at [facility] in followup on 10/30/20. He denies chest pain, palpitations. Troponin is negative. EKG with NSR, no acute ischemic changes. -Admission to medical with telemetry monitoring -Continue ASA 81mg po daily -Continue Ezetimibe and Fenofibrate -Hold Lisinopril and Metoprolol for now to allow for permissive hypertension in setting of possible TIA/CVA (5) CKD (chronic kidney disease) stage 3, GFR 30-59 ml/min: BUN=24, Cr=2 which is near baseline -Avoid nephrotoxic agents -Monitor renal function (6) DM (diabetes mellitus): Diet controlled. HgBA1C in August 2020 = 6.7. Blood sugar currently within target range - 120 -ISS -Goal blood sugar 140 - 180 (7) Hypertriglyceridemia: Chronic. Patient is statin-intolerant -Continue Fenofibrate -Continue Ezetimibe (8) Restless leg syndrome: Chronic. Patient states that his symptoms have been very severe lately -Continue Ropinirole, consider increased dosing (9) Atrial fibrillation: Patient with post-operative atrial flutter previously on Amiodarone which has since been discontinued. Currently in NSR. Anticoagulated with Eliquis 5mg po BID -Hold Eliquis 5mg po BID for now -Holding Metoprolol for now F/E/N - Heplock. Electrolytes WNL, check Mg and PO4 x 1 and replete as needed, Heart heatlhy/AHA diet as tolerated Ppx - Patient on Apixaban Code - Full per discussion with patient Dispo -Admit to medical with telemetry Admission and Anticipated Discharge Date Admission Date: January 17, 2021 Review of Systems Review of Systems: Mild distress and fatigue no headache, blurry or double vision mild speech changes no swallowing issues no chest pain, pressure or palpitations no shortness of breath, cough or wheezes no abdominal pain, nausea or vomiting, diarrhea or constipation no dysuria, hematuria or frequency no focal joint pain or swelling no back pain, CVA tenderness or radicular pain no bruising, bleeding or rashes focal weakness of left side no complaints of anxiety or depression. Physical Exam Physical Exam: The patient appeared well nourished and normally developed. Vital signs as documented. Head exam is normocephalic atraumatic no scleral icterus no facial drooping Neck is without JVD, thyromegaly, or carotid bruits. Lungs are clear to auscultation, no focal loss of breath sounds Cardiac exam, Rhythm is regular.. No murmurs, rubs or gallops. Abdominal exam reveals normal bowel sounds, soft non tender, no masses Extremities are nonedematous and both pedal pulses are present Neurologic exam is alert and oriented, left hand and leg weakness, dischronation and some mild speech issues Skin is without bruises or rashes Psychologically is without concerns for anxiety or depression Results & Data Results & Data ([facility]) Vital Signs (Past 12 Hours) Vital Signs Temp Pulse Pulse Resp BP BP Pulse Ox 01/17/21 02:34 97.7 F 75 20 149/97 H 98 01/17/21 02:14 86 18 100/64 94 01/17/21 01:01 89 18 138/68 99 01/17/21 00:36 94 H 16 131/73 98 01/17/21 00:29 98 01/16/21 23:49 98.1 F 113 H 16 125/79 98 PG Care Time/CCT Total # of Minutes Spent Total Time Spent with Patient: Total time spent is greater than 50% in cook house supervisor rdination of care (as documented) at patient's floor/unit and/or counseling patient: Coding Level of Care Code 95613 Subseq Hosp Care Lvl 3 Diagnoses Left-sided weakness R53.1 HTN (hypertension) I10 Hypertension type: essential hypertension GERD (gastroesophageal reflux disease) K21.9 Esophagitis presence: esophagitis presence not specified CAD (coronary artery disease) I25.110 Associated angina: with unstable angina Coronary Disease-Associated Artery/Lesion type: [place] artery [place] vs. transplanted heart: [place] heart CKD (chronic kidney disease) stage 3, GFR 30-59 ml/min N18.30 Chronic kidney disease stage 3 subtype: unspecified whether 3a or 3b DM (diabetes mellitus) E11.9 Diabetes mellitus complication status: without complication Diabetes mellitus halfway insulin use: without emt intermediate use Diabetes mellitus type: type 2 Hypertriglyceridemia E78.1 Restless leg syndrome G25.81 Atrial fibrillation I48.0 Atrial fibrillation type: paroxysmal (1) DM (diabetes mellitus) Diabetes mellitus complication status: without complication Diabetes mellitus emt intermediate insulin use: without emt intermediate use Diabetes mellitus type: type 2 Qualified Code(s): E11.9 - Type 2 diabetes mellitus without complications (2) CKD (chronic kidney disease) stage 3, GFR 30-59 ml/min Chronic kidney disease stage 3 subtype: unspecified whether 3a or 3b Qualified Code(s): N18.30 - Chronic kidney disease, stage 3 unspecified (3) CAD (coronary artery disease) Associated angina: with unstable angina Coronary Disease-Associated Artery/Lesion type: [place] artery [place] vs. transplanted heart: [place] heart Qualified Code(s): I25.110 - Atherosclerotic heart disease of [place] coronary artery with unstable angina pectoris (4) Atrial fibrillation Atrial fibrillation type: paroxysmal Qualified Code(s): I48.0 - Paroxysmal atrial fibrillation (5) GERD (gastroesophageal reflux disease) Esophagitis presence: esophagitis presence not specified Qualified Code(s): K21.9 - Gastro-esophageal reflux disease without esophagitis (6) HTN (hypertension) Hypertension type: essential hypertension Qualified Code(s): I10 - Essential (primary) hypertension
[2021-01-17] MEDS ORDERED: LORazepam 0.5 MG/1 ML VIAL IV STA (08:26)
[2021-01-17] MEDS ORDERED: GADOBUTROL 65ML VIAL IV ONE (09:40)
--- NOTE | 2021-01-17 09:49 | Magnetic Resonance Report ---
MRI OF THE BRAIN COMBO CLINICAL HISTORY: Strokelike symptoms. Left upper extremity weakness. Left-sided neck pain. COMPARISON STUDY: CT of the brain dated 01/17/2021 TECHNIQUE: MRI of the brain was performed utilizing various T1 and T2-weighted sequences in the axial , sagittal, and coronal planes. Contrast-enhanced sequences were acquired following the administratio n of 7.5 cc of Gadavist. The examination is degraded by motion artifact. FINDINGS: Brain parenchyma: There is a 1.6 cm focus of restricted diffusion identified in the right smith radi kenneth consistent with acute to subacute ischemia. No additional foci of restricted diffusion are identi fied. There is age-related involutional change noting advanced confluent subcortical and periventricu lar microangiopathic disease. A small chronic infarct is noted in the left cerebellar hemisphere. The re is no hemorrhage or mass effect. No enhancing mass lesion is identified on the postcontrast images . Chin-white matter differentiation is preserved. No extra-axial fluid collection is seen. The cerebe llar tonsils are normal in configuration. Ventricles, sulci, and cisterns: Prominent secondary to involutional change. Pituitary and sella: Unremarkable. Intracranial vasculature: Normal flow voids are maintained at the skull base. Orbits: The bony orbits are grossly intact. Orbital contents are normal in appearance. Sinuses and mastoids: Clear. Calvarium: Unremarkable. Cervical cord: Partially visualized cervical spinal cord is normal in morphology and signal intensity . IMPRESSION: 1. There is a 1.6 cm focus of restricted diffusion in the right smith radiata consistent with acute to subacute ischemia. 2. No additional foci of restricted diffusion are identified. 3. There is no hemorrhage or mass effect. 4. Senescent changes as above. ACT 112: Negative or not required by law. Electronically signed by: Bryant Graves M.D. 01/17/2021 9:47 AM
--- NOTE | 2021-01-17 10:46 | Neurology Consultation ---
Date of Consultation January 17, 2021 Assessment & Plan (1) Stroke: (2) Cerebrovascular disease: Acute ischemic stroke within the right smith radiata presenting with a mild to moderate left hemiparesis. Patient has a stable 45% stenosis of the distal right internal carotid artery at the skull base as well as significant intracranial cerebrovascular disease. History also notable for atrial fibrillation, on Eliquis, coronary artery disease, diabetes mellitus, and hypertriglyceridemia. He is also taking daily low-dose aspirin and Zetia. Would continue with Eliquis, daily low-dose aspirin, and Zetia. Consultation with PT/OT/speech therapy. Would recommend outpatient consultation with the stroke specialist at [facility], Dr. Padilla, as it was suggested that he may be an appropriate candidate for procedural intervention going forward. The 45% stenosis of the right internal carotid artery would not require surgical intervention at this time. Angioplasty and stenting of intracranial vessels is considered experimental and decisions should be made on a [id number] basis at a qualified stroke center. No further immediate recommendations. History of Present Illness Reason for Consultation: Stroke Requesting Physician: Kim Giang DO Attending Physician: Shailesh Peters MD History of Present Illness The patient is a 75-year-old male with a chief complaint of mild to moderate left-sided weakness that began last night. The symptom was initially intermittent but has become more persistent. He has had some associated difficulty with walking. No associated vision disturbance or change in speech. Past medical history notable for atrial fibrillation, on Eliquis, diabetes mellitus, coronary artery disease and hypertension. Patient is also prescribed daily low-dose aspirin and Zetia. A CT of the head was unremarkable. A CT angiogram of the head reveals multifocal stenosis within the [place] of [place] and distal vertebral arteries. A CTA of the neck reveals a 45% stenosis of the distal right internal carotid artery at the skull base. There is bilateral distal vertebral artery stenosis and a proximal basilar artery stenosis as well. The patient did not qualify for TPA. The admitting physician had discussed his case with the stroke specialist at [facility]. He may be considered an appropriate candidate for a procedural intervention at [facility] going forward. If follow-up brain MRI completed this morning reveals an acute 1.6 cm infarct within the right smith radiata. I reviewed the corresponding images and agree. Allergies Allergy/AdvReac Type Severity Reaction Status Date / Time niacin Allergy Unknown ARTHRALGIAS Verified 01/17/21 00:14 FROM ADVICOR telithromycin Allergy Unknown ARTHRALGIAS Verified 01/17/21 00:14 FROM ADVICOR atorvastatin AdvReac Intermediate Muscle Pain Verified 01/17/21 00:14 lovastatin AdvReac Intermediate ARTHRALGIAS Verified 01/17/21 00:14 FROM ADVICOR [id number] Reductase AdvReac Intermediate Muscle Pain Verified 01/17/21 00:14 Inhibitor STERIODS Allergy Unknown Unknown Uncoded 01/17/21 00:14 Home Medications Medication Instructions Recorded Confirmed Type aspirin 81 mg PO QAM 08/08/18 01/17/21 History multivitamin 1 tab PO QAM 08/08/18 01/17/21 History ezetimibe 10 mg PO QAM 11/11/19 01/17/21 History fenofibrate nanocrystallized 48 mg PO QAM 11/27/20 01/17/21 History apixaban [Eliquis] 5 mg PO BID 01/17/21 01/17/21 History ferrous sulfate 325 mg PO QAM 01/17/21 01/17/21 History lisinopril 20 mg PO QAM 01/17/21 01/17/21 History metoprolol succinate 25 mg PO QPM 01/17/21 01/17/21 History omeprazole 20 mg PO QAM 01/17/21 01/17/21 History ropinirole 0.5 mg PO QPM 01/17/21 01/17/21 History Patient History Medical History Accidental drug overdose Atelectasis 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 Restless leg syndrome TIA (transient ischemic attack) Type II diabetes mellitus Surgical History H/O knee surgery stent behind left knee 2017 H/O vasectomy History of angioplasty of peripheral vessel LLE angiogram with [facility] popliteal 05/23/2018 Hx of colonoscopy 2017 S/P CABG x 3 Family History Grandfather Colorectal cancer Mother Diabetes Hypertension Brother Stroke Social History Smoking Status: Former smoker Tobacco Type: Cigarettes Second Hand Exposure: No; Hx Alcohol Use: Yes Alcohol type: beer Hx Substance Use: No Preferred Language: Green[place]ic Communication Ability: Effective Commission Auditor Required: No Beliefs That Will Affect Care: None marital status: / Current Living Situation: Alone current occupational status: retired Feels Safe at Home: Yes Assistive Devices: Glasses Review of Systems Constitutional: no fever and no chills Eyes: no blind spots and no diplopia Ear, Nose, Mouth, Throat: no hearing loss Respiratory: no cough and no dyspnea Cardiovascular: no chest pain and no palpitations Gastrointestinal: no nausea and no vomiting Genitourinary: no dysuria Musculoskeletal: no myalgia Integumentary: no rash and no lesions Neurologic: as per Subjective / HPI Psychiatric: no depression and no anxiety Hematologic / Lymphatic: no easy bleeding and no easy bruising Exam (Neuro) Constitutional: well developed and well nourished; no acute distress Eyes: normal visual cardona by confrontation, PERRL, normal accommodation and EOM intact bilaterally; no fundoscopic abnormality, no nystagmus and no papilledema Cardiovascular: Vessels: normal carotid upstroke; no carotid bruit Neurologic: Oriented to:: Person, Place and Time Memory: Short Term Intact and Remote Intact Attention: Span Intact and Concentration Intact Language: Naming Objects and Repeating Phrases Speech Fluency: negative Dysarthria Speech Aphasia: negative Aphasia Fund of Knowledge: Current Events, Past History and Vocabulary Cranial Nerves: Normal II (Visual cardona full to confrontation, visual acuity normal), III, IV, (Pupils equal round reactive to light and accommodation, eye movements normal), V (Facial sensation intact), VIII (Hearing intact), IX, X (Palate elevates to midline), XI (Shoulder shrug intact) and XII (Tongue protrudes to midline); Abnorm VII (There is slight left lower facial weakness noted) Motor Strength: Pronator Drift and Hemiparesis (Mild) Laterality: Left; negative Normal Lower Extremities and Normal Upper Extremities Motor Tone: Normal Lower Extremities and Normal Upper Extremities Muscle Bulk/Involuntary Movements: No Involuntary Mo vements; negative Muscle Atrophy Sensation: Light Touch Intact, Pain/Temperature Intact, Vibration Intact and Proprioception Intact Co ordination: Normal; negative Limited Balance, Dysdiadochokinesia, Finger-Nose Abnormal (Left) and Heel-Christensen Abnormal (Left) Deep Tendon Reflexes: Rt Triceps: 2+, Lt Triceps: 2+, Rt Biceps: 2+, Lt Biceps: 2+, Rt Brachioradialis: 2+, Lt Brachioradialis: 2+, Rt Patellar: 2+, Lt Patellar: 2+, Rt Ankle: 1+ and Lt Ankle: 1+ Special Tests: negative Babinski Present Details: Gait not tested in the context of patient's current medical/neurological status. Results & Data ([facility]) Vital Signs (Past 12 Hours) Vital Signs Temp Pulse Pulse Resp BP BP Pulse Ox 01/17/21 08:00 36.6 C 75 70 16 138/75 94 01/17/21 07:45 73 15 01/17/21 07:30 78 14 01/17/21 07:15 75 16 01/17/21 07:00 72 21 01/17/21 02:34 36.5 C 75 20 149/97 H 98 01/17/21 02:14 86 18 100/64 94 01/17/21 01:01 89 18 138/68 99 01/17/21 00:36 94 H 16 131/73 98 01/17/21 00:29 98 01/16/21 23:49 36.7 C 113 H 16 125/79 98 Laboratory Results WBC 8.17, hemoglobin 13.0, hematocrit 38.2, platelet count 167, sodium 140, potassium 4.4, BUN 23, creatinine 1.77, glucose 103, hemoglobin A1c 6.8, total CK 79, troponin less than 0.015, triglycerides 544, cholesterol 174, HDL 22, TSH 3.[address] of the head negative for hemorrhage or acute process. CTA of the head reveals moderate focal stenosis within the mid basilar artery, moderate to sev ere stenosis within the distal right vertebral artery and moderate stenosis within the distal left vertebral artery. There is moderate focal stenosis seen within the distal A2 segment. Moderate to severe stenosis within the proximal bilateral M1 segments and at the takeoff of the left MCA M2 inferior division. The stenoses are progressive compared with a prior study done in 2018. There is severe stenosis within the left P1 segment, similar to prior. CTA of the neck reveals a stable 45% stenosis of the distal right internal carotid artery at the level of the skull base, persistent bilateral distal vertebral artery stenotic lesions, and a proximal basilar artery stenosis. MRI of the brain reveals a 1.6 cm focus of restricted diffusion within the right smith radiata consistent with an acute to subacute infarct. There is chronic subcortical and periventricular microangiopathic disease. There is a small chronic infarct within the left cerebellar hemisphere. These findings were observed by the interpreting radiologist. I reviewed the images as well and agree. An electrocardiogram reveals a normal sinus rhythm, 87 bpm, possible left atrial enlargement. An echocardiogram completed October 11, 2020 reveals normal left ventricular systolic function, mild sclerosis of the aortic valve, normal left and right atrial sizes. Coding Level of Care Code 46277 Initial In Care Lvl 3 Diagnoses Stroke I63.9 Cerebrovascular disease I67.9
--- NOTE | 2021-01-17 12:07 | XCELERA ---
[id number]
--- NOTE | 2021-01-17 16:17 | Electrocardiogram Report ---
Test Reason : Blood Pressure : / mmHG Vent. Rate : 100 BPM Atrial Rate : 100 BPM P-R Int : 148 ms QRS Dur : 090 ms QT Int : 368 ms P-R-T Axes : 027 -04 056 degrees QTc Int : 474 ms Normal sinus rhythm possible Inferior infarct (cited on or before 27-NOV-2020) Abnormal ECG When compared with ECG of 27-NOV-2020 14:55, No significant change was found Confirmed by Inocente Mcpherson ([id number]) on 01/17/2021 4:17:18 PM Referred By: REFERRED SELF Confirmed By:Mahad Mcpherson
[2021-01-17] MEDS: rOPINIRole HCL 0.25 MG TABLET PO SCH (21:25)
[2021-01-17] MEDS: MELATONIN 3 MG TAB PO PRN (23:39)
[2021-01-18 05:55] LABS: Basophils # (auto) 0.03 K/uL (0-0.2); Basophils % (auto) 0.3 %; Eosinophils # (auto) 0.32 K/uL (0-0.5); Eosinophils % (auto) 3.7 %; Hematocrit (blood only) 40.1 % (42-52); Hemoglobin 13.8 g/dL (14.0-18.0); Immature Granulocytes # (auto) 0.03 K/uL (0.00-0.02); Immature Granulocytes % (auto) 0.3 %; Lymphocytes # (auto) 1.49 K/uL (1.2-3.4); Mean Corpuscular Hgb Conc 34.4 g/dL (32-36); Mean Corpuscular Volume 87.2 fL (80-100); Mean Platelet Volume 11.6 fL (7.4-10.4); Monocytes # (auto) 0.65 K/uL (0.11-0.59); Monocytes % (auto) 7.4 %; Neutrophils # (auto) 6.23 K/uL (1.4-6.5); Neutrophils % (auto) 71.3 %; Platelet Count 167 K/uL (130-400); RDW Coefficient of Variation 14.5 % (11.5-14.5); RDW Standard Deviation 46.2 fL (36.4-46.3); White Blood Count 8.75 K/uL (4.8-10.8)
[2021-01-18 06:30] LABS: BUN Creatinine Ratio 13.6 (10-20); Calcium 8.8 mg/dl (8.5-10.1); Creatinine Clr Calc Pharmacy 38.3 ml/min; Est GFR (African American) 49.6; Est GFR (Non-African American) 42.8; Potassium 4.1 mmol/L (3.5-5.1)
[2021-01-18] MEDS: PANTOprazole 40 MG TAB PO SCH (08:15)
[2021-01-18] MEDS: FENOFIBRATE NANOCRYSTALLIZED 48 MG TABLET PO SCH (08:15)
[2021-01-18] MEDS: ASPIRIN 81 MG ECTAB PO SCH (08:15)
[2021-01-18] MEDS: EZETIMIBE 10 MG TABLET PO SCH (08:15)
[2021-01-18] MEDS: INSULIN ASPART 100 UNITS/ML 3 ML PEN SC SCH ×4 (08:22→20:57)
--- NOTE | 2021-01-18 16:48 | Hospitalist Progress Note ---
Date of Service January 18, 2021 Assessment & Plan (1) Left-sided weakness: Patient with weakness of LUE that began at appx 20:30 last night. Symptoms are waxing and waning. Also states that his "legs feel rubbery", bilaterally. History of CAD s/p CABG, HTN/HLP/DM/CKD and prior TIA CTA 01/16/21 IMPRESSION: Multifocal areas of stenosis within the [place] of [place] and distal vertebral arteries as described above. This has progressed in the interval. No areas of focal vascular occlusion. 1. Stable 45% diameter stenosis of the distal right internal carotid the level the skull base 2. Persistent bilateral distal vertebral artery stenotic lesions. 3. Proximal basilar artery stenosis. MRI brain, IMPRESSION: 1. There is a 1.6 cm focus of restricted diffusion in the right smith radiata consistent with acute to subacute ischemia. 2. No additional foci of restricted diffusion are identified. 3. There is no hemorrhage or mass effect. 4. Senescent changes as above Echo relatively normal no parodoxicall embolism -PT/OT evaluation patient will persist with PT OT evaluation likely home with outpatient rehabilitation recommended -Neuro consultation appreciated Case was discussed with Neurology team at [facility] - Dr. Padilla who thinks patient may be a candidate for neuro-intervention in the future. Case to be discussed with interventionalist, Dr. Justice. (2) HTN (hypertension): Blood pressure well controlled at present -Hold Lisinopril and Metoprolol to allow for permissive hypertension -Continue to monitor (3) GERD (gastroesophageal reflux disease): Chronic. Stable -Continue Omeprazole (4) CAD (coronary artery disease): Patient with CAD s/p CABG x 3V performed at [facility] in August 2020 (MUNIZ to LAD and SVG to RCA and SVG to OM). Patient has seen Cardiology at [facility] in followup on 10/30/20. He denies chest pain, palpitations. Troponin is negative. EKG with NSR, no acute ischemic changes. -Admission to medical with telemetry monitoring -Continue ASA 81mg po daily -Continue Ezetimibe and Fenofibrate -Hold Lisinopril and Metoprolol for now to allow for permissive hypertension in setting of possible TIA/CVA (5) CKD (chronic kidney disease) stage 3, GFR 30-59 ml/min: BUN=24, Cr=2 which is near baseline -Avoid nephrotoxic agents -Monitor renal function (6) DM (diabetes mellitus): Diet controlled. HgBA1C in August 2020 = 6.7. Blood sugar currently within target range - 120 -ISS -Goal blood sugar 140 - 180 (7) Hypertriglyceridemia: Chronic. Patient is statin-intolerant -Continue Fenofibrate -Continue Ezetimibe (8) Restless leg syndrome: Chronic. Patient states that his symptoms have been very severe lately -Continue Ropinirole, consider increased dosing (9) Atrial fibrillation: Patient with post-operative atrial flutter previously on Amiodarone which has since been discontinued. Currently in NSR. Anticoagulated with Eliquis 5mg po BID -Hold Eliquis 5mg po BID for now -Holding Metoprolol for now F/E/N - Heplock. Electrolytes WNL, check Mg and PO4 x 1 and replete as needed, Heart heatlhy/AHA diet as tolerated Ppx - Patient on Apixaban Code - Full per discussion with patient Dispo -Admit to medical with telemetry Admission and Anticipated Discharge Date Admission Date: January 17, 2021 Subjective Patient is much more fluent speech today is still bothered by left hand clumsiness and left leg weakness. He is to come to the fact he may go to his daughter's house for rehabilitation afterwards but he wishes not to go to an inpatient rehab center. He will participate in outpatient rehab center Review of Systems Review of Systems: Mild distress and persistent fatigue no headache, blurry or double vision no speech or swallowing issues no chest pain, pressure or palpitations no shortness of breath, cough or wheezes no abdominal pain, nausea or vomiting, diarrhea or constipation no dysuria, hematuria or frequency no focal joint pain or swelling no back pain, CVA tenderness or radicular pain no bruising, bleeding or rashes Patient notes no clumsiness or endpoint dysmetria of his left hand and arm and also clumsiness of his left leg no complaints of anxiety or depression.. Physical Exam Physical Exam: The patient appeared well nourished and normally developed. Is obvious is he has got left-sided weakness but no facial drooping Vital signs as documented. Head exam is normocephalic atraumatic no scleral icterus Neck is without JVD, thyromegaly, or carotid bruits. Lungs are clear to auscultation, no focal loss of breath sounds Cardiac exam, Rhythm is regular.. No murmurs, rubs or gallops. Abdominal exam reveals normal bowel sounds, soft non tender, no masses Extremities are nonedematous and both pedal pulses are present Neurologic exam is alert and oriented, his hand strength is good against gravity but probably 4/5 he has difficulty with end point discrimination when trying to do [id number] or actually point or grab things. His left foot is also weekend as well as his general left leg muscles. Skin is without bruises or rashes Psychologically is without concerns for anxiety or depression Results & Data Results & Data ([facility]) Vital Signs (Past 12 Hours) Vital Signs Temp Pulse Pulse Resp BP Pulse Ox 01/18/21 15:03 109 H 01/18/21 15:00 96.4 F L 92 H 20 160/90 H 96 01/18/21 11:51 97.9 F 92 H 20 152/84 H 94 01/18/21 07:41 97.5 F L 67 100 H 20 137/77 96 PG Care Time/CCT Total # of Minutes Spent Total Time Spent with Patient: Total time spent is greater than 50% in coordination of care (as documented) at patient's floor/unit and/or counseling patient: Coding Level of Care Code 25201 Subseq Hosp Care Lvl 2 Diagnoses Left-sided weakness R53.1 HTN (hypertension) I10 Hypertension type: essential hypertension GERD (gastroesophageal reflux disease) K21.9 Esophagitis presence: esophagitis presence not specified CAD (coronary artery disease) I25.110 Associated angina: with unstable angina Coronary Disease-Associated Artery/Lesion type: [place] artery [place] vs. transplanted heart: [place] heart CKD (chronic kidney disease) stage 3, GFR 30-59 ml/min N18.30 Chronic kidney disease stage 3 subtype: unspecified whether 3a or 3b DM (diabetes mellitus) E11.9 Diabetes mellitus type: type 2 Diabetes mellitus care home insulin use: without manager intermediate use Diabetes mellitus complication status: without complication Hypertriglyceridemia E78.1 Restless leg syndrome G25.81 Atrial fibrillation I48.0 Atrial fibrillation type: paroxysmal (1) HTN (hypertension) Hypertension type: essential hypertension Qualified Code(s): I10 - Essential (primary) hypertension (2) GERD (gastroesophageal reflux disease) Esophagitis presence: esophagitis presence not specified Qualified Code(s): K21.9 - Gastro-esophageal reflux disease without esophagitis (3) CAD (coronary artery disease) Associated angina: with unstable angina Coronary Disease-Associated Artery/Lesion type: [place] artery [place] vs. transplanted heart: [place] heart Qualified Code(s): I25.110 - Atherosclerotic heart disease of [place] coronary artery with unstable angina pectoris (4) CKD (chronic kidney disease) stage 3, GFR 30-59 ml/min Chronic kidney disease stage 3 subtype: unspecified whether 3a or 3b Qualified Code(s): N18.30 - Chronic kidney disease, stage 3 unspecified (5) DM (diabetes mellitus) Diabetes mellitus type: type 2 Diabetes mellitus care home insulin use: without care home use Diabetes mellitus complication status: without complication Qualified Code(s): E11.9 - Type 2 diabetes mellitus without co mplications (6) Atrial fibrillation Atrial fibrillation type: paroxysmal Qualified Code(s): I48.0 - Paroxysmal atrial fibrillation
[2021-01-18] MEDS: rOPINIRole HCL 0.25 MG TABLET PO SCH (20:34)
[2021-01-18] MEDS: APIXABAN 5 MG TABLET PO SCH (20:35)
[2021-01-19] MEDS: MELATONIN 3 MG TAB PO PRN (00:06)
[2021-01-19 06:27] LABS: Basophils # (auto) 0.05 K/uL (0-0.2); Basophils % (auto) 0.6 %; Eosinophils # (auto) 0.32 K/uL (0-0.5); Eosinophils % (auto) 3.8 %; Hematocrit (blood only) 41.9 % (42-52); Hemoglobin 14.2 g/dL (14.0-18.0); Immature Granulocytes # (auto) 0.03 K/uL (0.00-0.02); Immature Granulocytes % (auto) 0.4 %; Lymphocytes # (auto) 1.88 K/uL (1.2-3.4); Lymphocytes % (auto) 22.4 %; Mean Corpuscular Hemoglobin 29.6 pg (25-34); Mean Corpuscular Hgb Conc 33.9 g/dL (32-36); Mean Corpuscular Volume 87.3 fL (80-100); Mean Platelet Volume 11.4 fL (7.4-10.4); Monocytes # (auto) 0.66 K/uL (0.11-0.59); Monocytes % (auto) 7.8 %; Neutrophils # (auto) 5.47 K/uL (1.4-6.5); Platelet Count 155 K/uL (130-400); RDW Coefficient of Variation 14.1 % (11.5-14.5); White Blood Count 8.41 K/uL (4.8-10.8)
[2021-01-19 06:58] LABS: BUN Creatinine Ratio 13.4 (10-20); Creatinine Clr Calc Pharmacy 34.7 ml/min; Est GFR (African American) 44.1; Potassium 3.9 mmol/L (3.5-5.1)
[2021-01-19] MEDS: EZETIMIBE 10 MG TABLET PO SCH (07:52)
[2021-01-19] MEDS: ASPIRIN 81 MG ECTAB PO SCH (07:52)
[2021-01-19] MEDS: FENOFIBRATE NANOCRYSTALLIZED 48 MG TABLET PO SCH (07:52)
[2021-01-19] MEDS: PANTOprazole 40 MG TAB PO SCH (07:52)
[2021-01-19] MEDS: APIXABAN 5 MG TABLET PO SCH ×2 (07:52→20:30)
[2021-01-19] MEDS: INSULIN ASPART 100 UNITS/ML 3 ML PEN SC SCH ×4 (07:58→21:02)
--- NOTE | 2021-01-19 09:30 | Neurology Progress Note ---
Date of Service January 19, 2021 Assessment & Plan (1) Stroke: Acute ischemic stroke within the right smith radiata resulting in a persistent mild to moderate left hemiparesis, arm greater than leg, occurring in the context of atrial fibrillation on Eliquis, diabetes mellitus, coronary artery disease, and hypertension, also on daily low-dose aspirin and medication for dyslipidemia. Patient has significant intracranial cerebrovascular disease as well which has been progressive over the past few years based on recent CT angiography of the head and neck. He also has a 45% stenosis of the distal right internal carotid artery at the skull base. His case was reviewed by the stroke specialist at [facility] at the time of presentation and it was suggested that he may benefit from a procedure/intervention going forward. Intracranial cerebrovascular disease can be treated on the case by case basis. Medical management remains the standard of care, however. Continue medical management. Plan for outpatient consultation with stroke specialist at [facility] for additional recommendations regarding potential intervention/treatment of intracranial cerebrovascular disease. PT/OT No further immediate recommendations. Admission and Anticipated Discharge Date Admission Date: January 18, 2021 Subjective Follow-up for stroke The patient continues to complain of of a moderate degree of left-sided weakness affecting the arm and leg, actually feels slightly worse this morning, no headache, slurred speech, vision change, or other associated neurologic symptoms. Does have an acute right smith radiata ischemic infarct identified on recent brain MRI. Also has a 45% stenosis of the distal right internal carotid artery at the skull base and significant intracranial cerebrovascular disease, atrial fibrillation, on Eliquis, CAD, diabetes mellitus, and hypertriglyceridemia. Patient is on Eliquis, daily low-dose aspirin, and medication for dyslipidemia. His echocardiogram was negative for cardioembolic source. Review of Systems Eyes: no blind spots and no diplopia Neurologic: + localized weakness and + restless legs; no headache(s) Results & Data ([facility]) Vital Signs (Past 12 Hours) Vital Signs Temp Pulse Pulse Resp BP BP Pulse Ox 01/19/21 07:31 99 H 01/19/21 07:00 36.8 C 88 18 144/94 H 95 01/19/21 03:00 37 C 90 20 119/77 97 01/19/21 01:26 99 H 01/18/21 23:00 37.2 C 101 H 20 135/79 94 Exam (Neuro) Neurologic: Oriented to:: Person, Place and Time Memory: Short Term Intact and Remote Intact Attention: Span Intact and Concentration Intact Speech Fluency: negative Dysarthria Speech Aphasia: negative Aphasia Fund of Knowledge: Current Events, Past History and Vocabulary Cranial Nerves: Normal II and III, IV, ; Abnorm VII (Flattening of the left nasolabial fold) Motor Strength: Hemiparesis (Moderate) Laterality: Left; negative Normal Lower Extremities and Normal Upper Extremities Muscle Bulk/Involuntary Movements: No Involuntary Movements Coordination: Finger-Nose Abnormal Laterality: Left and Heel-Christensen Abnormal Laterality: Left Coding Level of Care Code 50640 Subseq Hosp Care Lvl 2 Diagnoses Stroke I63.9
[2021-01-19] MEDS ORDERED: POLYETHYLENE (MIRALAX) 17 GM PACK PO PRN (15:46)
--- NOTE | 2021-01-19 16:04 | Hospitalist Progress Note ---
Date of Service January 19, 2021 Assessment & Plan (1) Left-sided weakness: Patient with weakness of LUE that began at appx 20:30 last night. Symptoms are waxing and waning. Also states that his "legs feel rubbery", bilaterally. History of CAD s/p CABG, HTN/HLP/DM/CKD and prior TIA CTA 01/16/21 IMPRESSION: Multifocal areas of stenosis within the [place] of [place] and distal vertebral arteries as described above. This has progressed in the interval. No areas of focal vascular occlusion. 1. Stable 45% diameter stenosis of the distal right internal carotid the level the skull base 2. Persistent bilateral distal vertebral artery stenotic lesions. 3. Proximal basilar artery stenosis. MRI brain, IMPRESSION: 1. There is a 1.6 cm focus of restricted diffusion in the right smith radiata consistent with acute to subacute ischemia. 2. No additional foci of restricted diffusion are identified. 3. There is no hemorrhage or mass effect. 4. Senescent changes as above Echo relatively normal no patent foramrnparodoxicall embolism -PT/OT evaluation patient will persist with PT OT evaluation likely home with outpatient rehabilitation recommended -Neuro consultation appreciated Case was discussed with Neurology team [place] [facility] [place]. Padilla who thinks patient may be a candidate for neuro-intervention in the future. Case to be discussed with interventionalist, Dr. Justice. (2) HTN (hypertension): Blood pressure creeping up will restart metoprolol and consider lisinopril starting 01/20/21 (3) GERD (gastroesophageal reflux disease): Chronic. Stable -Continue Omeprazole (4) CAD (coronary artery disease): Patient with CAD s/p CABG x 3V performed at [facility] [place] August 2020 (MUNIZ to LAD and SVG to RCA and SVG to OM). Patient has seen Cardiology at [facility] in followup on 10/30/20. He denies chest pain, palpitations. Troponin is negative. EKG with NSR, no acute ischemic changes. -Admission to medical with telemetry monitoring -Continue ASA 81mg po daily -Continue Ezetimibe and Fenofibrate -resume blood pressure control for secondary risk prevention (5) CKD (chronic kidney disease) stage 3, GFR 30-59 ml/min: BUN=24, Cr=2 which is near baseline -Avoid nephrotoxic agents -Monitor renal function (6) DM (diabetes mellitus): Diet controlled. HgBA1C in August 2020 = 6.7. Blood sugar currently within target range - 120 -ISS -Goal blood sugar 140 - 180 (7) Hypertriglyceridemia: Chronic. Patient is statin-intolerant -Continue Fenofibrate -Continue Ezetimibe (8) Restless leg syndrome: Chronic. Patient states that his symptoms have been very severe lately -Continue Ropinirole, (9) Atrial fibrillation: Patient with post-operative atrial flutter previously on Amiodarone which has since been discontinued. Currently in NSR. Anticoagulated with Eliquis 5mg po BID -Hold Eliquis 5mg po BID for now -Holding Metoprolol for now F/E/N - Heplock. Electrolytes WNL, check Mg and PO4 x 1 and replete as needed, Heart heatlhy/AHA diet as tolerated Ppx - Patient on Apixaban Code - Full per discussion with patient Dispo -pts poor ambulation status limits him going to [facility] for rehab in the past the family states he was denied for acute rehab, I suggest we re try in this case Admission and Anticipated Discharge Date Admission Date: January 18, 2021 Subjective Follow-up for stroke, blood pressure is not well controlled The patient continues to complain of of a moderate degree of left-sided weakness affecting the arm and leg, actually feels slightly worse this morning, no headache, slurred speech, vision change, or other associated neurologic symptoms. Does have an acute right smith radiata ischemic infarct identified on recent brain MRI. Also has a 45% stenosis of the distal right internal carotid artery at the skull base and significant intracranial cerebrovascular disease, atrial fibrillation, on Eliquis, CAD, diabetes mellitus, and hypertriglyceridemia. Patient is on Eliquis, daily low-dose aspirin, and medication for dyslipidemia. His echocardiogram was negative for cardioembolic source. Review of Systems Review of Systems: Mild distress and persistent fatigue no headache, blurry or double vision no speech or swallowing issues no chest pain, pressure or palpitations no shortness of breath, cough or wheezes no abdominal pain, nausea or vomiting, diarrhea or constipation no dysuria, hematuria or frequency no focal joint pain or swelling no back pain, CVA tenderness or radicular pain no bruising, bleeding or rashes Patient notes no clumsiness or endpoint dysmetria of his left hand and arm and also clumsiness of his left leg no complaints of anxiety or depression.. Physical Exam Physical Exam: The patient appeared well nourished and normally developed. Is obvious is he has got left-sided weakness but no facial drooping Vital signs as documented. Head exam is normocephalic atraumatic no scleral icterus Neck is without JVD, thyromegaly, or carotid bruits. Lungs are clear to auscultation, no focal loss of breath sounds Cardiac exam, Rhythm is regular.. No murmurs, rubs or gallops. Abdominal exam reveals normal bowel sounds, soft non tender, no masses Extremities are nonedematous and both pedal pulses are present Neurologic exam is alert and oriented, his hand strength is good against gravity but probably 4/5 he has difficulty with end point discrimination when trying to do [id number] or actually point or grab things. His left foot is also weekend as well as his general left leg muscles. Skin is without bruises or rashes Psychologically is without concerns for anxiety or depression Results & Data Results & Data ([facility]) Vital Signs (Past 12 Hours) Vital Signs Temp Pulse Pulse Pulse Resp BP Pulse Ox 01/19/21 15:00 97.3 F L 103 H 18 162/95 H 97 01/19/21 11:00 97.7 F 109 H 18 142/90 H 97 01/19/21 07:31 99 H 01/19/21 07:00 98.2 F 88 18 144/94 H 95 PG Care Time/CCT Total # of Minutes Spent Total Time Spent with Patient: Total time spent is greater than 50% in coordinat ion of care (as documented) at patient's floor/unit and/or counseling patient: Coding Level of Care Code 76555 Subseq Hosp Care Lvl 3 Diagnoses Left-sided weakness R53.1 HTN (hypertension) I10 Hypertension type: essential hypertension GERD (gastroesophageal reflux disease) K21.9 Esophagitis presence: esophagitis presence not specified CAD (coronary artery disease) I25.110 Associated angina: with unstable angina Coronary Disease-Associated Artery/Lesion type: [place] artery [place] vs. transplanted heart: [place] heart CKD (chronic kidney disease) stage 3, GFR 30-59 ml/min N18.30 Chronic kidney disease stage 3 subtype: unspecified whether 3a or 3b DM (diabetes mellitus) E11.9 Diabetes mellitus type: type 2 Diabetes mellitus mcfp insulin use: without mcfp use Diabetes mellitus complication status: without complication Hypertriglyceridemia E78.1 Restless leg syndrome G25.81 Atrial fibrillation I48.0 Atrial fibrillation type: paroxysmal (1) HTN (hypertension) Hypertension type: essential hypertension Qualified Code(s): I10 - Essential (primary) hypertension (2) GERD (gastroesophageal reflux disease) Esophagitis presence: esophagitis presence not specified Qualified Code(s): K21.9 - Gastro-esophageal reflux disease without esophagitis (3) CAD (coronary artery disease) Associated angina: with unstable angina Coronary Disease-Associated Artery/Lesion type: [place] artery [place] vs. transplanted heart: [place] heart Qualified Code(s): I25.110 - Atherosclerotic heart disease of [place] coronary artery with unstable angina pectoris (4) CKD (chronic kidney disease) stage 3, GFR 30-59 ml/min Chronic kidney disease stage 3 subtype: unspecified whether 3a or 3b Qualified Code(s): N18.30 - Chronic kidney disease, stage 3 unspecified (5) DM (diabetes mellitus) Diabetes mellitus type: type 2 Diabetes mellitus mcfp insulin use: without mcfp use Diabetes mellitus complication status: without complication Qualified Code(s): E11.9 - Type 2 diabetes mellitus without complications (6) Atrial fibrillation Atrial fibrillation type: paroxysmal Qualified Code(s): I48.0 - Paroxysmal atrial fibrillation
[2021-01-19] MEDS: rOPINIRole HCL 0.25 MG TABLET PO SCH (20:30)
[2021-01-19] MEDS: METOPROLOL TARTRATE 25 MG TAB PO SCH (21:02)
[2021-01-20] MEDS: METOPROLOL TARTRATE 25 MG TAB PO SCH ×2 (08:59→20:55)
[2021-01-20] MEDS: FENOFIBRATE NANOCRYSTALLIZED 48 MG TABLET PO SCH (08:59)
[2021-01-20] MEDS: APIXABAN 5 MG TABLET PO SCH ×2 (08:59→20:55)
[2021-01-20] MEDS: ASPIRIN 81 MG ECTAB PO SCH (09:00)
[2021-01-20] MEDS: PANTOprazole 40 MG TAB PO SCH (09:00)
[2021-01-20] MEDS ORDERED: lisinopril 5 MG TAB PO SCH (09:00)
[2021-01-20] MEDS: EZETIMIBE 10 MG TABLET PO SCH (09:00)
[2021-01-20] MEDS: INSULIN ASPART 100 UNITS/ML 3 ML PEN SC SCH ×4 (09:02→20:55)
[2021-01-20] MEDS ORDERED: lisinopril 5 MG TAB PO ONE (10:52)
--- NOTE | 2021-01-20 10:53 | Hospitalist Progress Note ---
Date of Service January 20, 2021 Assessment & Plan (1) Left-sided weakness: Patient with weakness of LUE that began at appx 20:30 last night. Symptoms are waxing and waning. Also states that his "legs feel rubbery", bilaterally. History of CAD s/p CABG, HTN/HLP/DM/CKD and prior TIA #Left-sided weakness diagnosed with acute ischemic stroke within the right smith radiata He was in his normal state of health and experience letter personally with his extremity weakness subsequently was brought to the hospital CT demonstrating moderate white matter hypodensities in no acute intracranial findings, CTA demonstrating multifocal areas of stenosis within the [place] and 45% stenosis distal right internal carotid artery, MRI demonstrating a 1.6 cm focus of restricted diffusion in the right smith radiata consistent with persistent acute ischemia. The patient did not qualify for TPA and was admitted for further evaluation and management. patient with history of significant intracranial cerebrovascular disease has been progressive over the past few years.Also with 45% stenosis of distal right internal carotid artery, case was reviewed with stroke specialist at [facility] recommending outpatient consultation for potential intervention in the future. Echo demonstrated no acute abnormalities, no patent foramen ovale, no paradoxical embolism. Neurology was consulted recommending outpatient consultation with [facility]. PT OT consulted recommending SNF on discharge -Neurology consulted following recommendations -PT OT speech consulted following herniations -Supportive care anticipate SNF on discharge #Hypertension Long history of, blood pressures been creeping up while hospitalized, metoprolol restarted, -10 mg of lisinopril today -> adequate control, will continue at 10 for now #GERD Chronic. Stable -Continue Omeprazole #CAD Patient with CAD s/p CABG x 3V performed at [facility] in August 2020 (MUNIZ to LAD and SVG to RCA and SVG to OM). Patient has seen Cardiology at [facility] in followup on 10/30/20. He denies chest pain, palpitations. Troponin is negative. EKG with NSR, no acute ischemic changes. -Admission to medical with telemetry monitoring -Continue ASA 81mg po daily -Continue Ezetimibe and Fenofibrate -resume blood pressure control for secondary risk prevention #CKD BUN=24, Cr=2 which is near baseline -CR:2->1.77->1.56->1.72 -Avoid nephrotoxic agents -Monitor renal function #DM Diet controlled. HgBA1C in August 2020 = 6.7. Blood sugar currently within target range - 120 -ISS -Goal blood sugar 140 - 180 #Hypertriglyceridemia Chronic. Patient is statin-intolerant -Continue Fenofibrate -Continue Ezetimibe #Restless leg syndrome Chronic. Patient states that his symptoms have been very severe lately -Continue Ropinirole, #Atrial fibrillation Patient with post-operative atrial flutter previously on Amiodarone which has since been discontinued. Currently in NSR. Anticoagulated with Eliquis 5mg po BID -Resumed Eliquis 5 mg p.o. twice daily per neuro recs FENa: Heart healthy diet Code Status: Full code DVT PPX: Apixaban PT/OT: Ordered recommending SNF Dispo: Pending placement Luis Giang MD PGY 2, FCM This chart was completed utilizing [employer] voice recognition software. Grammatical errors, random word insertions, pronoun errors, and in complete sentences are an occasional consequence of the system. Any questions or concerns about the content, text, or information contained within the body of this dictation should be addressed directly to the physician for clarification. (2) HTN (hypertension): (3) GERD (gastroesophageal reflux disease): (4) CAD (coronary artery disease): (5) CKD (chronic kidney disease) stage 3, GFR 30-59 ml/min: (6) DM (diabetes mellitus): (7) Hypertriglyceridemia: (8) Restless leg syndrome: (9) Atrial fibrillation: Admission and Anticipated Discharge Date Admission Date: January 18, 2021 Supervising Physician Co-Signing Physician Notes I personally examined the patient and verified all morrison points of history and exam, discussed case, and agree with decision making with Dr Giang. Feeling about the sameongoing left-sided weakness. No new symptomslater in the day has a little bit of waxing and waning of left arm symptoms, but all in t he same distribution. Vitals noted, in general he is awake and alert pleasant no distress. HEENT normocephalic atraumatic mucous membranes moist. Neuro shows left-sided weakness. He notes this is not new. Strokesecondary risk reduction and rehab. Stable for rehab once bed available. Subjective Patient sitting up in bed this morning in no acute distress. Patient is tolerating his diet, voiding, stooling slept well overnight. Patient is to continue to progress forward with his care, agreeable to rehab. All questions answered, acute concerns related to rehab placement. Physical Exam Physical Exam: General: In no acute distress, left-sided hemiparalysis arm greater than leg HEENT: Normocephalic atraumatic Neck: Normal visual inspection, trachea midline Cardiac: Regular rate and rhythm I did not appreciate significant murmurs rubs or gallops, normal S1, normal S2 Respiratory: Clear to auscultation bilaterally with symmetrical chest management Neuro: Alert and oriented x4 answering 4-5 some difficulty with [id number] crampings left foot weak with generalized leg muscle weakness as well, CN II through XII grossly intact Psych: Alert and oriented x4, calm and cooperative with the interview Results & Data Results & Data ([facility]) Vital Signs (Past 12 Hours) Vital Signs Temp Pulse Pulse Resp BP Pulse Ox 01/20/21 08:40 73 01/20/21 06:49 36.8 C 72 20 146/88 H 96 01/20/21 03:58 36.5 C 71 18 136/77 96 01/19/21 23:58 84 01/19/21 22:56 36.7 C 90 18 168/101 H 95 Laboratory Results 01/20/21 01/19/21 01/19/21 Range/Units 07:24 20:01 16:56 POC Glucose 118 H 181 H 118 H (70-99) mg/dl 01/19/21 Range/Units 11:39 POC Glucose 151 H (70-99) mg/dl Medications Administered Current Inpatient Medications Acetaminophen (Acetaminophen 325 Mg Tab) 650 mg PO Q4H PRN PRN Reason: pain/fever Stop: 02/16/21 02:38 Apixaban (Apixaban 5 Mg Tablet) 5 mg PO BID RUPINDER Stop: 02/17/21 20:59 Last Admin: 01/20/21 08:59 Dose: 5 mg Documented by: Aspirin (Aspirin 81 Mg Ectab) 81 mg PO QAM RUPINDER Stop: 02/16/21 08:59 Last Admin: 01/20/21 09:00 Dose: 81 mg Documented by: Dextrose (Dextrose 50% 50 Ml Syringe) 25 - 50 ml IV UD PRN; Protocol PRN Reason: Hypoglycemia Protocol Stop: 02/16/21 02:38 Ezetimibe (Ezetimibe 10 Mg Tablet) 10 mg PO QAM [facility] Stop: 02/16/21 08:59 Last Admin: 01/20/21 09:00 Dose: 10 mg Documented by: Fenofibrate (Fenofibrate Nanocrystallized 48 Mg Tablet) 48 mg PO QAM [facility] Stop: 02/16/21 08:59 Last Admin: 01/20/21 08:59 Dose: 48 mg Documented by: Glucagon (Glucagon For Inj 1 Mg Vial) 1 mg SQ UD PRN; Protocol PRN Reason: Hypoglycemia Protocol Stop: 02/16/21 02:38 Glucose (Glucose 10 Tabs/Tube) 4 - 8 tabs PO UD PRN; Protocol PRN Reason: Hypoglycemia Protocol Stop: 02/16/21 02:38 Glucose (Glucose 40% Gel 15 Gm Tube) 15 - 30 gm PO UD PRN; Protocol PRN Reason: Hypoglycemia Protocol Stop: 02/16/21 02:38 Insulin Aspart (Insulin Aspart 100 Units/Ml 3 Ml Pen) 0 units SC ACHS [facility] Stop: 02/16/21 07:29 Last Admin: 01/20/21 09:02 Dose: 2 units Documented by: Lisinopril (Lisinopril 5 Mg Tab) [facility] [place] Stop: 02/19/21 08:59 Last Admin: 01/20/21 08:59 Dose: 5 mg Documented by: Melatonin (Melatonin 3 Mg Tab) 3 mg PO HS PRN PRN Reason: Sleep Stop: 02/16/21 21:55 Last Admin: 01/19/21 00:06 Dose: 3 mg Documented by: Metoprolol Tartrate (Metoprolol Tartrate 25 Mg Tab) 25 mg PO BID [facility] Stop: 02/18/21 20:59 Last Admin: 01/20/21 08:59 Dose: 25 mg Documented by: Miscellaneous (Carbohydrates For Hypoglycemia ) 15 - 30 gm PO UD PRN PRN Reason: Hypoglycemia Protocol Stop: 02/16/21 02:38 Ondansetron HCl (Ondansetron Inj 2 Mg/Ml 2 Ml Vial) 4 mg IV Q6H PRN PRN Reason: Nausea Stop: 02/16/21 02:38 Pantoprazole Sodium (Pantoprazole 40 Mg Tab) 40 [facility] [place] Stop: 02/16/21 08:59 Last Admin: 01/20/21 09:00 Dose: 40 mg Documented by: Polyethylene Glycol (Polyethylene (Miralax) 17 Gm Pack) 17 gm PO DAILY PRN PRN Reason: Constipation Stop: 02/18/21 15:45 Last Admin: 01/19/21 16:46 Dose: 17 gm Documented by: Ropinirole HCl (Ropinirole Hcl 0.25 Mg Tablet) 0.5 mg PO QPM RUPINDER Stop: 02/16/21 20:59 Last Admin: 01/19/21 20:30 Dose: 0.5 mg Documented by: Resident Activity Tracking Resident Involvement: Resident Care Provided Care Provided: Adult Hospital Medicine (1) DM (diabetes mellitus) Diabetes mellitus complication status: without complication Diabetes mellitus retirement insulin use: without retirement use Diabetes mellitus type: type 2 Qualified Code(s): E11.9 - Type 2 diabetes mellitus without complications (2) CKD (chronic kidney disease) stage 3, GFR 30-59 ml/min Chronic kidney disease stage 3 subtype: unspecified whether 3a or 3b Qualified Code(s): N18.30 - Chronic kidney disease, stage 3 unspecified (3) CAD (coronary artery disease) Associated angina: with unstable angina Coronary Disease-Associated Artery/Lesion type: [place] artery [place] vs. transplanted heart: [place] heart Qualified Code(s): I25.110 - Atherosclerotic heart disease of [place] coronary artery with unstable angina pectoris (4) Atrial fibrillation Atrial fibrillation type: paroxysmal Qualified Code(s): I48.0 - Paroxysmal atrial fibrillation (5) GERD (gastroesophageal reflux disease) Esophagitis presence: esophagitis presence not specified Qualified Code(s): K21.9 - Gastro-esophageal reflux disease without esophagitis (6) HTN (hypertension) Hypertension type: essential hypertension Qualified Code(s): I10 - Essential (primary) hypertension
[2021-01-20] MEDS: FERROUS SULFATE 325 MG TAB PO SCH (11:30)
--- NOTE | 2021-01-20 17:48 | Billing Data ---
Date of Service January 20, 2021 Coding Level of Care Code 85308 Subseq Hosp Care Lvl 3
--- NOTE | 2021-01-20 20:05 | CT Scan Report ---
CT head/brain wo con CLINICAL HISTORY: 75 years-old Male with worsening left hemiparesis. Acute strokelike symptoms TECHNIQUE: Multiple axial CT images of the head were obtained without contrast. A dose lowering tech nique was utilized adhering to the principles of ALARA. CT DOSE: 853.38 mGy.cm COMPARISON: Head CT 01/17/2021, 10/21/2020 FINDINGS: No acute intracranial hemorrhage, midline shift, intracranial mass, hydrocephalus, territorial ischem ia or abnormal extra-axial collection. Age-related involutional changes. Patchy white matter hypodens ities suggestive of chronic microvascular ischemic disease. Ill-defined area of decreased attenuation in the right frontal lobe smith radiata measures 1.5 cm image 19 series 2 which has progressed from comparison. Cerebral vascular calcifications. The calvarium is intact. The paranasal sinuses, mastoid air cells, and middle ear cavities are clear . IMPRESSION: 1. No acute intracranial hemorrhage or midline shift. 2. Ill-defined 1.5 cm focus of decreased attenuation within the smith radiata of the right frontal l obe is suggestive of a small acute infarct. ACT 112: Negative or not required by law. The above report was generated using voice recognition software. It may contain grammatical, syntax o r spelling errors. Electronically signed by: Antonio Whipple M.D. 01/20/2021 8:04 PM
[2021-01-20] MEDS: rOPINIRole HCL 0.25 MG TABLET PO SCH (20:55)
[2021-01-21] MEDS: FENOFIBRATE NANOCRYSTALLIZED 48 MG TABLET PO SCH (07:52)
[2021-01-21] MEDS: lisinopril 10 MG TAB PO SCH (07:52)
[2021-01-21] MEDS: EZETIMIBE 10 MG TABLET PO SCH (07:52)
[2021-01-21] MEDS: FERROUS SULFATE 325 MG TAB PO SCH (07:53)
[2021-01-21] MEDS: PANTOprazole 40 MG TAB PO SCH (07:53)
[2021-01-21] MEDS: APIXABAN 5 MG TABLET PO SCH ×2 (07:53→20:40)
[2021-01-21] MEDS: METOPROLOL TARTRATE 25 MG TAB PO SCH ×2 (07:53→20:40)
[2021-01-21] MEDS: ASPIRIN 81 MG ECTAB PO SCH (07:53)
[2021-01-21] MEDS: INSULIN ASPART 100 UNITS/ML 3 ML PEN SC SCH ×4 (07:54→20:41)
[2021-01-21 07:57] LABS: Basophils # (auto) 0.05 K/uL (0-0.2); Basophils % (auto) 0.6 %; Eosinophils # (auto) 0.21 K/uL (0-0.5); Eosinophils % (auto) 2.4 %; Hematocrit (blood only) 44.1 % (42-52); Immature Granulocytes # (auto) 0.03 K/uL (0.00-0.02); Immature Granulocytes % (auto) 0.3 %; Lymphocytes # (auto) 1.79 K/uL (1.2-3.4); Lymphocytes % (auto) 20.2 %; Mean Corpuscular Hemoglobin 29.6 pg (25-34); Mean Platelet Volume 11.4 fL (7.4-10.4); Monocytes # (auto) 0.62 K/uL (0.11-0.59); Neutrophils # (auto) 6.17 K/uL (1.4-6.5); Neutrophils % (auto) 69.5 %; Platelet Count 166 K/uL (130-400); RDW Coefficient of Variation 14.4 % (11.5-14.5); RDW Standard Deviation 45.2 fL (36.4-46.3); Red Blood Count 5.07 M/uL (4.7-6.1); White Blood Count 8.87 K/uL (4.8-10.8)
--- NOTE | 2021-01-21 08:18 | Hospitalist Progress Note ---
Date of Service January 21, 2021 Assessment & Plan (1) Left-sided weakness: Patient with weakness of LUE that began at appx 20:30 last night. Symptoms are waxing and waning. Also states that his "legs feel rubbery", bilaterally. History of CAD s/p CABG, HTN/HLP/DM/CKD and prior TIA #Left-sided weakness diagnosed with acute ischemic stroke within the right smith radiata He was in his normal state of health and experience letter personally with his extremity weakness subsequently was brought to the hospital CT demonstrating moderate white matter hypodensities in no acute intracranial findings, CTA demonstrating multifocal areas of stenosis within the [place] and 45% stenosis distal right internal carotid artery, MRI demonstrating a 1.6 cm focus of restricted diffusion in the right smith radiata consistent with persistent acute ischemia. The patient did not qualify for TPA and was admitted for further evaluation and management. patient with history of significant intracranial cerebrovascular disease has been progressive over the past few years.Also with 45% stenosis of distal right internal carotid artery, case was reviewed with stroke specialist at [facility] [place] outpatient consultation for potential intervention in the future. Echo demonstrated no acute abnormalities, no patent foramen ovale, no paradoxical embolism. Neurology was consulted recommending outpatient consultation with [facility]. PT OT consulted recommending SNF on discharge. 01/20 patient endorsing left-sided weakness that which waxes and wanes in nature, patient was repeatedly reassessed throughout the day demonstrating a waxing and waning nature of his left-sided weakness. CT scan obtained in the evening demonstrated no from prior CT scan. -Neurology consulted following recommendations -PT OT speech consulted following herniations -Supportive care anticipate SNF on discharge #Hypertension Long history of, blood pressures been creeping up while hospitalized, metoprolol restarted, -10 mg of lisinopril today -> adequate control, will continue at 10 for now #GERD Chronic. Stable -Continue Omeprazole #CAD Patient with CAD s/p CABG x 3V performed at [facility] [place] August [place] (MUNIZ to LAD and SVG to RCA and SVG to OM). Patient has seen Cardiology at [facility] in followup on 10/30/20. He denies chest pain, palpitations. Troponin is negative. EKG with NSR, no acute ischemic changes. -Admission to medical with telemetry monitoring -Continue ASA 81mg po daily -Continue Ezetimibe and Fenofibrate -resume blood pressure control for secondary risk prevention #CKD BUN=24, Cr=2 which is near baseline -CR:2->1.77->1.56->1.72->1.83 -Avoid nephrotoxic agents -Monitor renal function #DM Diet controlled. HgBA1C in August 2020 = 6.7. Blood sugar currently within target range - 120 -ISS -Goal blood sugar 140 - 180 #Hypertriglyceridemia Chronic. Patient is statin-intolerant -Continue Fenofibrate -Continue Ezetimibe #Restless leg syndrome Chronic. Patient states that his symptoms have been very severe lately -Continue Ropinirole, #Atrial fibrillation Patient with post-operative atrial flutter previously on Amiodarone which has since been discontinued. Currently in NSR. Anticoagulated with Eliquis 5mg po BID -Resumed Eliquis 5 mg p.o. twice daily per neuro recs FENa: Heart healthy diet Code Status: Full code DVT PPX: Apixaban PT/OT: Ordered recommending SNF Dispo: Pending placement Luis Giang MD PGY 2, FCM This chart was completed utilizing [employer] voice recognition software. Grammatical errors, random word insertions, pronoun errors, and in complete sentences are an occasional consequence of the system. Any questions or concerns about the content, text, or information contained within the body of this dictation should be addressed directly to the physician for clarification. (2) HTN (hypertension): (3) GERD (gastroesophageal reflux disease): (4) CAD (coronary artery disease): (5) CKD (chronic kidney disease) stage 3, GFR 30-59 ml/min: (6) DM (diabetes mellitus): (7) Hypertriglyceridemia: (8) Restless leg syndrome: (9) Atrial fibrillation: Admission and Anticipated Discharge Date Admission Date: January 18, 2021 Supervising Physician Co-Signing Physician Notes I personally examined the patient and verified all morrison points of history and exam, discussed case, and agree with decision making with Dr Giang. feeling about the same w L sided weakness. frustrated but also looking forward to rehab - really wants to get started nacho. Vitals noted, in general he is awake and alert pleasant no distress. HEENT normocephalic atraumatic mucous membranes moist. Neuro shows left-sided weakness - ~1-2/5 at foot/toes, nearly absent at knee flex/ex, ~1/5 hip flex. fingers ~2/5 arm absent. sensation intact throughout. strokesecondary risk reduction and rehab. encouraged to try to do as much as he can/work with weakened areas as best he can. rehab once approved. Subjective Patient lying in bed this morning in no acute distress. Patient is having significant denial about his stroke. We have reviewed his stroke symptoms several times, likely future course, how his symptoms will wax and wane, and how a likely take weeks to months before he achieves a semblance of normal function. When I attempted to use the teach back method and had the patient explain to me his understanding of our conversation he was unable to verbalize that he had a stroke. I am concerned about his ongoing denial, however I am hopeful upon discharge to SNF and participation rehab there will be improvement. All questions answered, acute concerns relate placement Physical Exam Physical Exam: General: In no acute distress, left-sided hemiparalysis arm greater than leg HEENT: Normocephalic atraumatic Neck: Normal visual inspection, trachea midline Cardiac: Regular rate and rhythm I did not appreciate significant murmurs rubs or gallops, normal S1, normal S2 Respiratory: Clear to auscultation bilaterally with symmetrical chest management Neuro: alert and oriented x4, left-sided hemiparesis with waxing and waning severity, at times able to resist gravity, at times flaccid paralysis. Psych: calm and cooperative with the interview Results & Data Results & Data ([facility]) Vital Signs (Past 12 Hours) Vital Signs Temp Pulse Pulse Resp BP BP Pulse Ox 01/21/21 07:36 36.5 C 56 L 16 112/73 98 01/21/21 03:16 36.6 C 66 17 110/62 94 01/21/21 00:00 87 Resident Activity Tracking Resident Involvement: Resident Care Provided Care Provided: Adult Hospital Medicine (1) DM (diabetes mellitus) Diabetes mellitus complication status: without complication Diabetes mellitus fdc insulin use: without predatory animal exterminator use Diabetes mellitus type: type 2 Qualified Code(s): E11.9 - Type 2 diabetes mellitus without complications (2) CKD (chronic kidney disease) stage 3, GFR 30-59 ml/min Chronic kidney disease stage 3 subtype: unspecified whether 3a or 3b Qualified Code(s): N18.30 - Chronic kidney disease, stage 3 unspecified (3) CAD (coronary artery disease) Associated angina: with unstable angina Coronary Disease-Associated Arter y/Lesion type: [place] artery [place] vs. transplanted heart: [place] heart Qualified Code(s): I25.110 - Atherosclerotic heart disease of [place] coronary artery with unstable angina pectoris (4) Atrial fibrillation Atrial fibrillation type: paroxysmal Qualified Code(s): I48.0 - Paroxysmal atrial fibrillation (5) GERD (gastroesophageal reflux disease) Esophagitis presence: esophagitis presence not specified Qualified Code(s): K21.9 - Gastro-esophageal reflux disease without esophagitis (6) HTN (hypertension) Hypertension type: essential hypertension Qualified Code(s): I10 - Essential (primary) hypertension
[2021-01-21 08:21] LABS: BUN Creatinine Ratio 12.8 (10-20); Calcium 9.4 mg/dl (8.5-10.1); Creatinine Clr Calc Pharmacy 32.6 ml/min; Est GFR (African American) 40.9; Est GFR (Non-African American) 35.3; Potassium 3.7 mmol/L (3.5-5.1)
[2021-01-21] MEDS ORDERED: lisinopril 20 MG TAB PO SCH (09:00)
--- NOTE | 2021-01-21 17:57 | Billing Data ---
Date of Service January 21, 2021 Coding Level of Care Code 90461 Subseq Hosp Care Lvl 2
[2021-01-21] MEDS: rOPINIRole HCL 0.25 MG TABLET PO SCH (20:41)
--- NOTE | 2021-01-22 08:21 | Hospitalist Progress Note ---
Date of Service January 22, 2021 Assessment & Plan (1) Left-sided weakness: Patient with weakness of LUE that began at appx 20:30 last night. Symptoms are waxing and waning. Also states that his "legs feel rubbery", bilaterally. History of CAD s/p CABG, HTN/HLP/DM/CKD and prior TIA #Left-sided weakness diagnosed with acute ischemic stroke within the right smith radiata He was in his normal state of health and experience letter personally with his extremity weakness subsequently was brought to the hospital CT demonstrating moderate white matter hypodensities in no acute intracranial findings, CTA demonstrating multifocal areas of stenosis within the [place] and 45% stenosis distal right internal carotid artery, MRI demonstrating a 1.6 cm focus of restricted diffusion in the right smith radiata consistent with persistent acute ischemia. The patient did not qualify for TPA and was admitted for further evaluation and management. patient with history of significant intracranial cerebrovascular disease has been progressive over the past few years.Also with 45% stenosis of distal right internal carotid artery, case was reviewed with stroke specialist at [facility] recommending outpatient consultation for potential intervention in the future. Echo demonstrated no acute abnormalities, no patent foramen ovale, no paradoxical embolism. Neurology was consulted recommending outpatient consultation with [facility]. PT OT consulted recommending SNF on discharge. 01/20 patient endorsing left-sided weakness that which waxes and wanes in nature, patient was repeatedly reassessed throughout the day demonstrating a waxing and waning nature of his left-sided weakness. CT scan obtained in the evening demonstrated no from prior CT scan. -Neurology consulted following recommendations -appreciate reassment -PT OT speech consulted following herniations -Supportive care anticipate SNF on discharge #Hypertension Long history of, blood pressures been creeping up while hospitalized, metoprolol restarted, -10 mg of lisinopril today -> adequate control, will continue at 10 for now #GERD Chronic. Stable -Continue Omeprazole #CAD Patient with CAD s/p CABG x 3V performed at [facility] in August 2020 (MUNIZ to LAD and SVG to RCA and SVG to OM). Patient has seen Cardiology at [facility] in followup on 10/30/20. He denies chest pain, palpitations. Troponin is negative. EKG with NSR, no acute ischemic changes. -Admission to medical with telemetry monitoring -Continue ASA 81mg po daily -Continue Ezetimibe and Fenofibrate -resume blood pressure control for secondary risk prevention #CKD BUN=24, Cr=2 which is near baseline -CR:2->1.77->1.56->1.72->1.83 -Avoid nephrotoxic agents -Monitor renal function #DM Diet controlled. HgBA1C in August 2020 = 6.7. Blood sugar currently within target range - 120 -ISS -Goal blood sugar 140 - 180 #Hypertriglyceridemia Chronic. Patient is statin-intolerant -Continue Fenofibrate -Continue Ezetimibe #Restless leg syndrome Chronic. Patient states that his symptoms have been very severe lately. Reported leg spasms left lower extremity last night question whether is related to restless leg syndrome versus recent neurological insult. -Continue Ropinirole, #Atrial fibrillation Patient with post-operative atrial flutter previously on Amiodarone which has since been discontinued. Currently in NSR. Anticoagulated with Eliquis 5mg po BID -Resumed Eliquis 5 mg p.o. twice daily per neuro recs #Constipation Patient reporting constipation. -Twice daily MiraLAX scheduled FENa: Heart healthy diet Code Status: Full code DVT PPX: Apixaban PT/OT: Ordered recommending SNF Dispo: Pending placement Luis Giang MD PGY 2, FCM This chart was completed utilizing [employer] voice recognition software. Grammatical errors, random word insertions, pronoun errors, and in complete sentences are an occasional consequence of the system. Any questions or concerns about the content, text, or information contained within the body of this dictation should be addressed directly to the physician for clarification. (2) HTN (hypertension): (3) GERD (gastroesophageal reflux disease): (4) CAD (coronary artery disease): (5) CKD (chronic kidney disease) stage 3, GFR 30-59 ml/min: (6) DM (diabetes mellitus): (7) Hypertriglyceridemia: (8) Restless leg syndrome: (9) Atrial fibrillation: Admission and Anticipated Discharge Date Admission Date: January 18, 2021 Supervising Physician Co-Signing Physician Notes I personally examined the patient and verified all morrison points of history and exam, discussed case, and agree with decision making with Dr Giang. Left-sided weakness worse today. Also has a bit of a facial droop. May be slightly thicker speech. Has had no difficulty eating, no coughing or choking. Vitals noted, in general he is awake and alert pleasant no distress. HEENT normocephalic atraumatic mucous membranes moist. Breathing unlabored no accessory muscle use good effort. Skin shows no rashes no pallor or icterus. Neuro shows left-sided facial droop that does not really correct, left arm and leg now with very dense weakness and not even really any voluntary muscle twitch, sensation is still intact everywhere. strokegiven distribution of stroke, and evolution of symptoms, I suspect either waxing and waning in the same vascular distribution, or possibly even a degree of silvio-infarct edema causing slightly worse silvio-infarct appearing deficits. Unfortunately there does not appear to be a lot that we can do to remedy the situation, as much is help him through it. We will ask neurology to see him again just to ensure there is nothing else that we could be doing to help. Continue anticoagulation and antiplatelet, continue PT/OT, work towards rehab once approved. Subjective Patient lying in bed this morning in no acute distress, reporting some pain in his left lower extremity last night describing as a muscle spasm. Patient tolerating his diet, voiding, reporting constipation, Slept well overnight. Acute concerns related to placement, all questions answered. Physical Exam Physical Exam: General: In no acute distress, left-sided hemiparalysis arm gr eater than leg HEENT: Normocephalic atraumatic Neck: Normal visual inspection, trachea midline Cardiac: Regular rate and rhythm I did not appreciate significant murmurs rubs or gallops, normal S1, normal S2 Respiratory: Clear to auscultation bilaterally with symmetrical chest management Neuro: alert and oriented x4, left-sided hemiparesis with waxing and waning severity, at times able to resist gravity, at times flaccid paralysis. Psych: calm and cooperative with the interview Results & Data Results & Data ([facility]) Vital Signs (Past 12 Hours) Vital Signs Temp Pulse Pulse Resp BP BP Pulse Ox 01/22/21 07:29 76 01/22/21 07:28 36.8 C 67 18 121/79 94 01/22/21 03:24 36.7 C 70 18 103/58 L 96 01/21/21 23:41 70 01/21/21 22:48 36.8 C 74 17 115/67 95 Laboratory Results 01/22/21 01/21/21 01/21/21 Range/Units 07:38 20:14 16:21 Sodium (136-145) mmol/L Potassium (3.5-5.1) mmol/L Chloride (98-107) mmol/L Carbon Dioxide (21-32) mmol/L Anion Gap (3-11) BUN (7-18) mg/dl Creatinine (0.6-1.4) mg/dl Est Cr Clr Drug Dosing ml/min Est GFR ( Amer) Est GFR (Non-Af Amer) BUN/Creatinine Ratio (10-20) Glucose (70-99) mg/dl POC Glucose 120 H 139 H 144 H (70-99) mg/dl Calcium (8.5-10.1) mg/dl 01/21/21 01/21/21 Range/Units 11:22 07:23 Sodium 137 (136-145) mmol/L Potassium 3.7 (3.5-5.1) mmol/L Chloride 109 H (98-107) mmol/L Carbon Dioxide 21 (21-32) mmol/L Anion Gap 8.0 (3-11) BUN 24 H (7-18) mg/dl Creatinine 1.83 H (0.6-1.4) mg/dl Est Cr Clr Drug Dosing 32.6 ml/min Est GFR ( Amer) 40.9 Est GFR (Non-Af Amer) 35.3 BUN/Creatinine Ratio 12.8 (10-20) Glucose 117 H (70-99) mg/dl POC Glucose 166 H (70-99) mg/dl Calcium 9.4 (8.5-10.1) mg/dl Medications Administered Current Inpatient Medications Acetaminophen (Acetaminophen 325 Mg Tab) 650 mg PO Q4H PRN PRN Reason: pain/fever Stop: 02/16/21 02:38 Apixaban (Apixaban 5 Mg Tablet) 5 mg PO BID RUPINDER Stop: 02/17/21 20:59 Last Admin: 01/21/21 20:40 Dose: 5 mg Documented by: Aspirin (Aspirin 81 Mg Ectab) 81 mg PO QAM [facility] Stop: 02/16/21 08:59 Last Admin: 01/21/21 07:53 Dose: 81 mg Documented by: Dextrose (Dextrose 50% 50 Ml Syringe) 25 - 50 ml IV UD PRN; Protocol PRN Reason: Hypoglycemia Protocol Stop: 02/16/21 02:38 Ezetimibe ([facility]im[facility] 10 Mg Tablet) [facility]: 02/16/21 08:59 Last Admin: 01/21/21 07:52 Dose: 10 mg Documented by: Fenofibrate (Fenofibrate Nanocrystallized 48 Mg Tablet) 48 mg PO QAM [facility] Stop: 02/16/21 08:59 Last Admin: 01/21/21 07:52 Dose: 48 mg Documented by: Ferrous Sulfate (Ferrous Sulfate 325 Mg Tab) 325 mg PO QAM [facility] Stop: 02/19/21 10:59 Last Admin: 01/21/21 07:53 Dose: 325 mg Documented by: Glucagon (Glucagon For Inj 1 Mg Vial) 1 mg SQ UD PRN; Protocol PRN Reason: Hypoglycemia Protocol Stop: 02/16/21 02:38 Glucose (Glucose 10 Tabs/Tube) 4 - 8 tabs PO UD PRN; Protocol PRN Reason: Hypoglycemia Protocol Stop: 02/16/21 02:38 Glucose (Glucose 40% Gel 15 Gm Tube) 15 - 30 gm PO UD PRN; Protocol PRN Reason: Hypoglycemia Protocol Stop: 02/16/21 02:38 Insulin Aspart (Insulin Aspart 100 Units/Ml 3 Ml Pen) 0 units SC ACHS [facility] Stop: 02/16/21 07:29 Last Admin: 01/21/21 20:41 Dose: Not Given Documented by: Lisinopril (Lisinopril 10 Mg Tab) [facility] Stop: 02/20/21 08:59 Last Admin: 01/21/21 07:52 Dose: 10 mg Documented by: Melatonin (Melatonin 3 Mg Tab) 3 mg PO HS PRN PRN Reason: Sleep Stop: 02/16/21 21:55 Last Admin: 01/19/21 00:06 Dose: 3 mg Documented by: Metoprolol Tartrate (Metoprolol Tartrate 25 Mg Tab) 25 mg PO BID [facility] Stop: 02/18/21 20:59 Last Admin: 01/21/21 20:40 Dose: 25 mg Documented by: Miscellaneous (Carbohydrates For Hypoglycemia ) 15 - 30 gm PO UD PRN PRN Reason: Hypoglycemia Protocol Stop: 02/16/21 02:38 Ondansetron HCl (Ondansetron Inj 2 Mg/Ml 2 Ml Vial) 4 mg IV Q6H PRN PRN Reason: Nausea Stop: 02/16/21 02:38 Pantoprazole Sodium (Pantoprazole 40 Mg Tab) 40 mg PO QAM RUPINDER Stop: 02/16/21 08:59 Last Admin: 01/21/21 07:53 Dose: 40 mg Documented by: Polyethylene Glycol (Polyethylene (Miralax) 17 Gm Pack) 17 gm PO DAILY PRN PRN Reason: Constipation Stop: 02/18/21 15:45 Last Admin: 01/19/21 16:46 Dose: 17 gm Documented by: Polyethylene Glycol (Polyethylene (Miralax) 17 Gm Pack) 17 gm PO BID RUPINDER Stop: 02/21/21 08:59 Ropinirole HCl (Ropinirole Hcl 0.25 Mg Tablet) 0.5 mg PO QPM RUPINDER Stop: 02/16/21 20:59 Last Admin: 01/21/21 20:41 Dose: 0.5 mg Documented by: Resident Activity Tracking Resident Involvement: Resident Care Provided Care Provided: Adult [facility] Medicine (1) DM (diabetes mellitus) Diabetes mellitus complication status: without complication Diabetes mellitus termite exterminator insulin use: without termite exterminator use Diabetes mellitus type: type 2 Qualified Code(s): E11.9 - Type 2 diabetes mellitus without complications (2) CKD (chronic kidney disease) stage 3, GFR 30-59 ml/min Chronic kidney disease stage 3 subtype: unspecified whether 3a or 3b Qualified Code(s): N18.30 - Chronic kidney disease, stage 3 unspecified (3) CAD (coronary artery disease) Associated angina: with unstable angina Coronary Disease-Associated Artery/Lesion type: [place] artery [place] vs. transplanted heart: [place] heart Qualified Code(s): I25.110 - Atherosclerotic heart disease of [place] coronary artery with unstable angina pectoris (4) Atrial fibrillation Atrial fibrillation type: paroxysmal Qualified Code(s): I48.0 - Paroxysmal atrial fibrillation (5) GERD (gastroesophageal reflux disease) Esophagitis presence: esophagitis presence not specified Qualified Code(s): K21.9 - Gastro-esophageal reflux disease without esophagitis (6) HTN (hypertension) Hypertension type: essential hypertension Qualified Code(s): I10 - Essential (primary) hypertension
[2021-01-22] MEDS: ASPIRIN 81 MG ECTAB PO SCH (08:44)
[2021-01-22] MEDS: EZETIMIBE 10 MG TABLET PO SCH (08:44)
[2021-01-22] MEDS: FERROUS SULFATE 325 MG TAB PO SCH (08:44)
[2021-01-22] MEDS: FENOFIBRATE NANOCRYSTALLIZED 48 MG TABLET PO SCH (08:44)
[2021-01-22] MEDS: PANTOprazole 40 MG TAB PO SCH (08:45)
[2021-01-22] MEDS: lisinopril 10 MG TAB PO SCH (08:45)
[2021-01-22] MEDS: APIXABAN 5 MG TABLET PO SCH ×2 (08:45→20:21)
[2021-01-22] MEDS: METOPROLOL TARTRATE 25 MG TAB PO SCH ×2 (08:45→20:21)
[2021-01-22] MEDS: INSULIN ASPART 100 UNITS/ML 3 ML PEN SC SCH ×4 (08:47→20:40)
[2021-01-22] MEDS: POLYETHYLENE (MIRALAX) 17 GM PACK PO SCH ×2 (10:38→20:24)
[2021-01-22] MEDS ORDERED: BACLOFEN 10 MG TAB PO PRN (16:00)
--- NOTE | 2021-01-22 16:02 | Neurology Progress Note ---
Date of Service January 22, 2021 Assessment & Plan (1) Acute left-sided weakness: (2) Stroke: Shailesh Antonio is a 75 yo man w/ PMH of DM, HTN, HLD, GERD, CAD s/p CABG, h/o TIA, CKDIII, and Afib on apixaban who p/t [facility] on 01/17/21 with acute onset of left sided weakness. [employer] ~8pm on 01/16/21. Symptom localization: right centrum semiovale Stroke mechanism: cardioembolic vs lacunar/lipohyalinosis, cannot rule out hypercoagulable given stroke occurred while on apixaban (lacunar strokes are oft en stuttering with waxing/waning symptoms over several days before plateauing) Stroke WorkUp: - CT head: initial showed no hemorrhage or hypodensity. Repeat on 01/20 shows new hypodensities in the right centrum semiovale/smith radiata and right parietal lobes. - CTA head/neck: mild right ICA stenosis, diffuse intracranial atherosclerosis of both anterior and posterior circulation - MRI brain: subacute infarct in the right centrum semiovale/smith radiata, old infarct in the left cerebellum - TTE: EF 60-65%, mild aortic sclerosis without aortic stenosis, no intra-atrial shunt - Telemetry: Afib - A1c: 6.8 - FLP: unable to calculate 2/2 hyperTG - Troponin, TSH: negative, WNL Stroke Management: - Continuous cardiac monitoring - Vitals, Neurochecks, NIHSS per unit routine - BP parameters: SBP CAP 220, hold home anti-hypertensives for permissive HTN, IV Labetalol/Hydralazine PRN - Repeat MRI brain w/o to r/o new stroke as there does appear to be another hypodensity on the most recent CTH not seen on the MRI brain (requests PO sedation for this, imaging ordered) - Consult speech, PT, OT for supportive management - Will treatment counselor concerning stroke education, smoking cessation, healthy diet, physical activity, weight loss - Follow up with PCP for assistance with outpatient goals (BP <130/80, LDL <70, A1c <7) - Follow up in neurology clinic in 6-8 weeks with SHAUN Stovall - For post-stroke spasms, can start baclofen 10mg qhs to see if this is helpful for him and consider a knee/foot brace to help with positioning while in the bed as the angle his leg is in is causing him pain (baclofen ordered prn) Secondary Stroke Prevention: - Antiplatelet: ASA 81mg po daily (due to cardiac history) - Anticoagulation: continue apixaban - Statin: continue ezetimibe/fenofibrate. Consider starting vascepa and/or Repatha for hyperTG/HLD given diffuse intracranial atherosclerosis to maximize medical therapy HTN: - BP parameters, as above - Restart home medications with goal of lowering BP to normotension over next 1- 2 days FEN/GI: - Diet: Cardiac HH diet and PO meds given absence of bulbar signs or symptoms - Monitor lytes and replete PRN Glucose Control: - Sliding scale insulin and accuchecks per primary team to avoid hyperglycemia Thank you for this interesting consult. Plan of care was discussed with primary team. Please call with any questions. (3) Atrial fibrillation: Admission and Anticipated Discharge Date Admission Date: January 18, 2021 Subjective NAEs overnight. He reports that his left sided symptoms have fluctuated the last few days but now notes left sided facial droop and left sided weakness that has been persistent. Also reports having muscle spasms in his LLE that were painful and kept him awake last night. Review of Systems Review of Systems: 14 point review of systems completed and negative except as in HPI. Results & Data ([facility]) Vital Signs (Past 12 Hours) Vital Signs Temp Pulse Pulse Resp BP Pulse Ox 01/22/21 11:14 36.4 C L 71 18 109/69 96 01/22/21 07:29 76 01/22/21 07:28 36.8 C 67 18 121/79 94 Exam (Neuro) 2 Physical Exam: General Exam: GEN: NAD, sitting down in examination bed. HEENT: No conjunctival injection, no rhinorrhea. CV: RRR on monitor, no significant edema. PULM: Nonlabored respirations on room air. Neuro Exam: MS: Awake and Alert. Oriented to person, place, and date. Speech fluent and appropriate without dysarthria or paraphasic errors. Language intact including naming, comprehension, repetition. Cognition and memory grossly intact. Attention intact. No neglect. CN: Visual rankin full, + blink to threat bilaterally. No extinction to double simultaneous stimuli. PERRLA OU. EOMI without nystagmus. Facial sensation intact to LT. Left FP. Hearing intact to conversation. Shoulder shrug normal in the right, minimal in the left. MOTOR: Normal bulk, flaccid tone in LUE/LLE. RUE strength 5/5 at deltoids, biceps, triceps, wrist flexors and extensors; LUE flaccid. RLE strength 5/5 at iliopsoas, hamstrings, quadriceps, tibialis anterior, and gastrocnemius; LLE flaccid. REFLEXES: 1+ at biceps, triceps, brachioradialis, 1+ patella, and absent Achilles bilaterally. Flexor plantar responses bilaterally. SENSORY: Intact to LT throughout, no extinction to double simultaneous stimuli. COORDINATION: No dysmetria or ataxia on [id number] in the RUE. GAIT: Deferred due to physical status. NIH STROKE SCALE 1A. Level of Consciousness (0-3) = 0 1B. LOC Questions (0-2) = 0 1C. LOC Commands (0-2) = 0 2. Best Horizontal Gaze (0-2) = 0 3. Visual Rankin (0-3) = 0 4. Facial Palsy (0-3) = 3 5. Motor Arm Right (0-4) = 0 Left (0-4) = 4 6. Motor Leg Right (0-4) = 0 Left (0-4) = 4 7. Limb Ataxia (0-2) = 0 8. Sensory (0-2) = 0 9. Best Language (0-3) = 0 10. Dysarthria (0-2) = 0 11. Extinction and Inattention (0-2) = 0 NIHSS TOTAL = 11 PG Care Time/CCT Total # of Minutes Spent Total Time Spent with Patient: Total time spent is greater than 50% in coordination of care (as documented) at patient's floor/unit and/or counseling patient: Coding Level of Care Code 55634 Subseq Hosp Care Lvl 3 Diagnoses Acute left-sided weakness R53.1 Stroke I63.9 Atrial fibrillation I48.0 Atrial fibrillation type: paroxysmal (1) Atrial fibrillation Atrial fibrillation type: paroxysmal Qualified Code(s): I48.0 - Paroxysmal atrial fibrillation
--- NOTE | 2021-01-22 16:23 | Billing Data ---
Date of Service January 22, 2021 Coding Level of Care Code 24546 Subseq Hosp Care Lvl 3
[2021-01-22] MEDS: rOPINIRole HCL 0.25 MG TABLET PO SCH (20:21)
[2021-01-22] MEDS ORDERED: LORazepam 0.5 MG TAB PO PRN (21:02)
--- NOTE | 2021-01-23 07:51 | Discharge Summary ---
Date of Service January 23, 2021 Admission HPI Per Admitting Provider Shailesh Antonio is a pleasant 75yo C male with history of CAD s/p CABG x 3V performed August 2020 at [facility], TIA x 2, CKD/DM/HTN/HLP. 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 He has had intermittent weakness of the LUE. Also states that his legs felt "rubbery" and he had unsteady balance. He has pain in the left neck. He denies MERAZ, visual disturbance No additional complaints at this time. Admission Exam Per Admitting Provider General: patient resting comfortably, NAD, non-toxic in appearance, AA&O x 4, anxious Skin: warm, dry, intact, no rashes or lesions HEENT: NC/AT, PERRL, EOMI, anicteric sclera, conjunctiva without injection, external ear normal to inspection and nontender, nares patent, moist mucus membranes, dentition intact, no oropharyngeal lesions, neck supple, trachea midline, no LAD, no thyromegaly, no JVD Heart: +S1/S2, regular, no m/r/g, well healed sternotomy scar with stable sternum on palpation Lungs: equal air entry bilaterally, no rales/rhonchi/wheezes Abd: +BS, soft, NT/ND, no masses/organomegaly/ascites Ext: warm, 2+ pulses in UE/LE bilaterally, no clubbing/cyanosis or edema Neuro: Pt AA&O x 4, speech clear, no facial droop, CN II - XII initact, sensation to light touch intact, MS in LUE diminished 4/5, [id number] LUE with dysmetria, +Left drift Principal Diagnosis Stroke Discharge Exam General: In no acute distress, left-sided hemiparalysis arm greater than leg HEENT: Normocephalic atraumatic Neck: Normal visual inspection, trachea midline Cardiac: Regular rate and rhythm I did not appreciate significant murmurs rubs or gallops, normal S1, normal S2 Respiratory: Clear to auscultation bilaterally with symmetrical chest management Neuro: alert and oriented x4, left-sided hemiparesis with waxing and waning severity, at times able to resist gravity, at times flaccid paralysis. Psych: calm and cooperative with the interview Discharge Data Allergies Allergy/AdvReac Type Severity Reaction Status Date / Time niacin Allergy Unknown ARTHRALGIAS Verified 01/17/21 00:14 FROM ADVICOR telithromycin Allergy Unknown ARTHRALGIAS Verified 01/17/21 00:14 FROM ADVICOR atorvastatin AdvReac Intermediate Muscle Pain Verified 01/17/21 00:14 lovastatin AdvReac Intermediate ARTHRALGIAS Verified 01/17/21 00:14 FROM ADVICOR Ivsujge-Wlx-Lcm Reductase AdvReac Intermediate Muscle Pain Verified 01/17/21 00:14 Inhibitor STERIODS Allergy Unknown Unknown Uncoded 01/17/21 00:14 Consultations 01/17/21 01:36 ED Decision to Admit Stat 01/17/21 02:39 Consult Neurology Routine Ordered Studies 01/17/21 00:10 CT angio head w con Urgent CT angio neck with con Urgent CT head/brain wo con Urgent 01/17/21 02:39 MR brain wo/w con Routine 01/20/21 19:07 CT head/brain wo con Stat 01/22/21 16:01 MR brain wo con Routine Hospital Course (1) Left-sided weakness: *Outpatient PCP to follow-up on FELICITA and antiphospholipid labs. ensure routine screening exams have been performed* Patient with weakness of LUE that began at appx 20:30 last night. Symptoms are waxing and waning. Also states that his "legs feel rubbery", bilaterally. History of CAD s/p CABG, HTN/HLP/DM/CKD and prior TIA #Left-sided weakness diagnosed with acute ischemic stroke within the right co david radiata He was in his normal state of health and experience letter personally with his extremity weakness subsequently was brought to the hospital CT demonstrating moderate white matter hypodensities in no acute intracranial findings, CTA demonstrating multifocal areas of stenosis within the [place] and 45% stenosis distal right internal carotid artery, MRI demonstrating a 1.6 cm focus of restricted diffusion in the right smith radiata consistent with persistent acute ischemia. The patient did not qualify for TPA and was admitted for further evaluation and management. patient with history of significant intracranial cerebrovascular disease has been progressive over the past few years.Also with 45% stenosis of distal right internal carotid artery, case was reviewed with stroke specialist at [facility] recommending outpatient consultation for potential intervention in the future. Echo demonstrated no acute abnormalities, no patent foramen ovale, no paradoxical embolism. Neurology was consulted recommending outpatient consultation with [facility]. PT OT consulted recommending SNF on discharge. 01/20 patient endorsing left-sided weakness that which waxes and wanes in nature, patient was repeatedly reassessed throughout the day demonstrating a waxing and waning nature of his left-sided weakness. Neurology consulted on 01/22 with fluctuating symptoms. Recommending baclofen for lower legs spasms and repeat brain MRI. -Neurology consulted following recommendations -Baclofen for spasms -MRI Demonstrated increase in the extent of 1.9 cm acute to subacute infarct within the right smith radiata, otherwise unchanged appearance of the brain, extensive small vessel disease. -PT OT speech consulted #Hypertension Long history of, blood pressures been creeping up while hospitalized, metoprolol restarted, -10 mg of lisinopril daily #GERD Chronic. Stable -Continue Omeprazole #CAD Patient with CAD s/p CABG x 3V performed at [facility] in August 2020 (MUNIZ to LAD and SVG to RCA and SVG to OM). Patient has seen Cardiology at [facility] in followup on 10/30/20. He denies chest pain, palpitations. Troponin is negative. EKG with NSR, no acute ischemic changes. -Monitored on telemetry without acute event -Continue ASA 81mg po daily -Continue Ezetimibe and Fenofibrate -resume blood pressure control for secondary risk prevention #CKD BUN=24, Cr=2 which is near baseline -CR:2->1.77->1.56->1.72->1.83 -Avoid nephrotoxic agents -Monitor renal function #DM Diet controlled. HgBA1C in August 2020 = 6.7. Blood sugar currently within target range - 120 -ISS -Goal blood sugar 140 - 180 #Hypertriglyceridemia Chronic. Patient is statin-intolerant -Continue Fenofibrate -Continue Ezetimibe #Restless leg syndrome Chronic. Patient states that his symptoms have been very severe lately. Reported leg spasms left lower extremity last night question whether is related to restless leg syndrome versus recent neurological insult. -Continue Ropinirole, #Atrial fibrillation Patient with post-operative atrial flutter previously on Amiodarone which has since been discontinued. Currently in NSR. Anticoagulated with Eliquis 5mg po BID -Resumed Eliquis 5 mg p.o. twice daily per neuro recs #Constipation Patient reporting constipation. -Twice daily MiraLAX scheduled FENa: Heart healthy diet Code Status: Full code DVT PPX: Apixaban PT/OT: Ordered recommending SNF Dispo: Pending placement Luis Giang MD PGY 2, FCM This chart was completed utilizing [employer] voice recognition software. Grammatical errors, random word insertions, pronoun errors, and in complete sentences are an occasional consequence of the system. Any questions or concerns about the content, text, or information contained within the body of this dictation should be addressed directly to the physician for clarification. (2) HTN (hypertension): (3) GERD (gastroesophageal reflux disease): (4) CAD (coronary artery disease): (5) CKD (chronic kidney disease) stage 3, GFR 30-59 ml/min: (6) DM (diabetes mellitus): (7) Hypertriglyceridemia: (8) Restless leg syndrome: (9) Atrial fibrillation: Total Time Total Time Spent Total Time Spent (In Minutes): <30 Discharge Plan Discharge Items Patient Disposition: Transfer Inpatient Rehab Fac Reason For Visit: ? TIA VS CVA Discharge Diagnosis: Stroke Activity: Resume your previous activity Non-emergency contact: Primary Care Provider and Neurologist Call non-emergency contact if: you have any medication questions, your pain is not controlled and your temperature is above 101 Follow-up/Referrals: Alejandrina Brooks DO [Primary Care Provider] - Diet: Carb Consistent or DM2 and Heart Healthy Addtl Attending Provider Instructions: Patient with weakness of LUE that began at appx 20:30 last night. Symptoms are waxing and waning. Also states that his "legs feel rubbery", bilaterally. History of CAD s/p CABG, HTN/HLP/DM/CKD and prior TIA #Left-sided weakness diagnosed with acute ischemic stroke within the right smith radiata He was in his normal state of health and experience letter personally with his extremity weakness subsequently was brought to the hospital CT demonstrating moderate white matter hypodensities in no acute intracranial findings, CTA demonstrating multifocal areas of stenosis within the [place] and 45% stenosis distal right internal carotid artery, MRI demonstrating a 1.6 cm focus of restricted diffusion in the right smith radiata consistent with persistent acute ischemia. The patient did not qualify for TPA and was admitted for further evaluation and management. patient with history of significant intrac ranial cerebrovascular disease has been progressive over the past few years.Also with 45% stenosis of distal right internal carotid artery, case was reviewed with stroke specialist at [facility] recommending outpatient consultation for potential intervention in the future. Echo demonstrated no acute abnormalities, no patent foramen ovale, no paradoxical embolism. Neurology was consulted recommending ou tpatient consultation with [facility]. PT OT consulted recommending SNF on discharge. 01/20 patient endorsing left-sided weakness that which waxes and wanes in nature, patient was repeatedly reassessed throughout the day demonstrating a waxing and waning nature of his left-sided weakness. Neurology consulted on 01/22 with fluctuating symptoms. Recommending baclofen for lower legs spasms and repeat brain MRI. -Neurology consulted following recommendations -Baclofen for spasms -MRI Demonstrated -PT OT speech consulted #Hypertension Long history of, blood pressures been creeping up while hospitalized, metoprolol restarted, -10 mg of lisinopril daily #GERD Chronic. Stable -Continue Omeprazole #CAD Patient with CAD s/p CABG x 3V performed at [facility] in August 2020 (MUNIZ to LAD and SVG to RCA and SVG to OM). Patient has seen Cardiology at [facility] in followup on 10/30/20. He denies chest pain, palpitations. Troponin is negative. EKG with NSR, no acute ischemic changes. -Monitored on telemetry without acute event -Continue ASA 81mg po daily -Continue Ezetimibe and Fenofibrate -resume blood pressure control for secondary risk prevention #CKD BUN=24, Cr=2 which is near baseline -CR:2->1.77->1.56->1.72->1.83 -Avoid nephrotoxic agents -Monitor renal function #DM Diet controlled. HgBA1C in August 2020 = 6.7. Blood sugar currently within target range - 120 -ISS -Goal blood sugar 140 - 180 #Hypertriglyceridemia Chronic. Patient is statin-intolerant -Continue Fenofibrate -Continue Ezetimibe #Restless leg syndrome Chronic. Patient states that his symptoms have been very severe lately. Reported leg spasms left lower extremity last night question whether is related to restless leg syndrome versus recent neurological insult. -Continue Ropinirole, #Atrial fibrillation Patient with post-operative atrial flutter previously on Amiodarone which has since been discontinued. Currently in NSR. Anticoagulated with Eliquis 5mg po BID -Resumed Eliquis 5 mg p.o. twice daily per neuro recs #Constipation Patient reporting constipation. -Twice daily MiraLAX scheduled FENa: Heart healthy diet Code Status: Full code DVT PPX: Apixaban PT/OT: Ordered recommending SNF Dispo: Pending placement Luis Giang MD PGY 2, FCM This chart was completed utilizing [employer] voice recognition software. Grammatical errors, random word insertions, pronoun errors, and in complete sentences are an occasional consequence of the system. Any questions or concerns about the content, text, or information contained within the body of this dictation should be addressed directly to the physician for clarification. Pending Studies at Discharge: No Stand-Alone Forms: My [facility] Skilled Items Patient informed of condition?: Yes DNR: No Discharge Level of Care: Skilled Communicable Disease: No Discharge Prognosis: Improving Lines: None Urinary Catheter: No Medications and DC Order Prescriptions: New baclofen 10 mg Tablet 10 mg PO QPM PRN (Reason: spasm) Qty: 30 RF: 0 Continued multivitamin Tablet 1 tab PO QAM RF: 0 aspirin 81 mg Tablet,Delayed Release (Dr/Ec) 81 mg PO QAM RF: 0 ezetimibe 10 mg tablet 10 mg PO QAM RF: 0 fenofibrate nanocrystallized 48 mg tablet 48 mg PO QAM RF: 0 metoprolol succinate 25 mg tablet extended release 24 hr 25 mg PO QPM RF: 0 ropinirole 0.25 mg tablet 0.5 mg PO QPM RF: 0 ferrous sulfate 325 mg (65 mg iron) Tablet 325 mg PO QAM RF: 0 omeprazole 20 mg capsule,delayed release(DR/EC) 20 mg PO QAM RF: 0 Eliquis 5 mg tablet 5 mg PO BID RF: 0 Changed lisinopril 20 mg tablet 10 mg PO QAM Qty: 0 RF: 0 Discharge Orders: Discharge Order (Routine); Ordered 01/23/21 Ordered By: Luis Cutler/Other Patient Handouts: High Blood Sugar (Hyperglycemia), Hypoglycemia (Low Blood Sugar), Managing Type 2 Diabetes, 5 Steps for Eating Healthier, Managing Diabetes: The A1C Test Admission Data Admit Date/Time: 01/18/21 16:48 Attending Provider: Holger Rowland Admit Provider: Kim Giang Primary Care Provider: Alejandrina Brooks Other Providers: Kim Giang ; Jj Napoles ; Shailesh Peters ; [facility] Other Interventions: Discharge Summary Assessment (RN) Last Done: 01/23/21 15:13 Supervising Physician Co-Signing Physician Notes I personally examined the patient and verified all morrison points of history and exam, discussed case, and agree with decision making with Dr Giang. Feeling about the same as far as left-sided weakness. No other new complaints. MRI noted, neuro input noted. Finally approved for rehab. Vitals noted, in general he is awake and alert pleasant no distress. HEENT normocephalic atraumatic mucous membranes moist. Breathing unlabored no accessory muscle use good effort. Skin shows no rashes no pallor or icterus. Neuro shows left-sided facial droop that does not really correct, left arm and leg with very dense weakness, sensation is still intact everywhere. strokecontinue secondary risk reduction with anticoagulation, antiplatelets. Given that he seems to have had a stroke breakthrough, agree with neurology that secondary work-up, while likely low yield given his high probability of just having intracranial atherosclerosis, he is worthwhile. Outpatient work-up as relates to malignancy screening, and antiphospholipid antibodies. Continue current care, stable for rehab. Otherwise as above Resident Activity Tracking Resident Involvement: Resident Care Provided Care Provided: Adult Hospital Medicine
[2021-01-23] MEDS: EZETIMIBE 10 MG TABLET PO SCH (08:31)
[2021-01-23] MEDS: PANTOprazole 40 MG TAB PO SCH (08:31)
[2021-01-23] MEDS: METOPROLOL TARTRATE 25 MG TAB PO SCH (08:32)
[2021-01-23] MEDS: FENOFIBRATE NANOCRYSTALLIZED 48 MG TABLET PO SCH (08:32)
[2021-01-23] MEDS: FERROUS SULFATE 325 MG TAB PO SCH (08:32)
[2021-01-23] MEDS: lisinopril 10 MG TAB PO SCH (08:32)
[2021-01-23] MEDS: ASPIRIN 81 MG ECTAB PO SCH (08:32)
[2021-01-23] MEDS: INSULIN ASPART 100 UNITS/ML 3 ML PEN SC SCH ×2 (08:33→13:04)
[2021-01-23] MEDS: APIXABAN 5 MG TABLET PO SCH (08:33)
[2021-01-23] MEDS: POLYETHYLENE (MIRALAX) 17 GM PACK PO SCH (08:37)
[2021-01-23 11:19] LABS: Basophils # (auto) 0.05 K/uL (0-0.2); Basophils % (auto) 0.6 %; Eosinophils # (auto) 0.17 K/uL (0-0.5); Eosinophils % (auto) 1.9 %; Hemoglobin 14.6 g/dL (14.0-18.0); Immature Granulocytes # (auto) 0.02 K/uL (0.00-0.02); Immature Granulocytes % (auto) 0.2 %; Lymphocytes # (auto) 1.59 K/uL (1.2-3.4); Lymphocytes % (auto) 17.8 %; Mean Corpuscular Hemoglobin 29.5 pg (25-34); Mean Corpuscular Volume 86.9 fL (80-100); Mean Platelet Volume 11.7 fL (7.4-10.4); Monocytes # (auto) 0.57 K/uL (0.11-0.59); Monocytes % (auto) 6.4 %; Neutrophils # (auto) 6.51 K/uL (1.4-6.5); Neutrophils % (auto) 73.1 %; Platelet Count 179 K/uL (130-400); RDW Coefficient of Variation 14.5 % (11.5-14.5); RDW Standard Deviation 45.6 fL (36.4-46.3); Red Blood Count 4.95 M/uL (4.7-6.1); White Blood Count 8.91 K/uL (4.8-10.8)
[2021-01-23 11:41] LABS: BUN Creatinine Ratio 18.5 (10-20); Calcium 9.1 mg/dl (8.5-10.1); Creatinine Clr Calc Pharmacy 30.9 ml/min; Est GFR (African American) 38.4; Est GFR (Non-African American) 33.1
--- NOTE | 2021-01-23 12:30 | Magnetic Resonance Report ---
MRI OF THE BRAIN WITHOUT CONTRAST CLINICAL HISTORY: f/u stroke. COMPARISON STUDY: MRI of the brain January 17, 2021. Head CT January 20, 2021. TECHNIQUE: Utilizing a 1.5 Lila magnet and dedicated coil, multiplanar, multiecho imaging of the bra in was performed without IV contrast. FINDINGS: A 1.9 cm round focus of restricted diffusion within the right smith radiata has increased in extent since MRI of January 17, 2021 when measured 1.6 cm. Associated T2 hyperintensity consistent w ith cytotoxic edema has increased. There is no mass effect. There is no hemorrhage. No additional acu te to subacute infarcts are present. Ventricular system is stable. Basilar cisterns are patent. There are nodular axial collections. No intracranial masses are identified on this unenhanced exam. Extens dyllan white matter T2 hyperintense foci are unchanged since previous MRI. These suggest small vessel di sease. Probable old lacunar infarcts within left cerebellar hemisphere are noted. Calvarial signal is normal. Orbits are unremarkable on this unenhanced exam. There is no evidence for sinusitis. There a re postoperative findings within the sinuses. IMPRESSION: 1. Increase in extent of a 1.9 cm acute to subacute infarct within the right smith radiata since MRI of January 17, 2021. 2. Otherwise, unchanged appearance of the brain. Extensive small vessel disease. ACT 112: Negative or not required by law. Electronically signed by: Ronny Sanderson M.D. 01/23/2021 12:29 PM
--- NOTE | 2021-01-23 13:03 | Neurology Progress Note ---
Date of Service January 23, 2021 Assessment & Plan (1) Acute left-sided weakness: (2) Stroke: Shailesh Antonio is a 75 yo man w/ PMH of DM, HTN, HLD, GERD, CAD s/p CABG, h/o TIA, CKDIII, and Afib on apixaban who p/t [facility] on 01/17/21 with acute onset of left sided weakness. BOTTLER ~8pm on 01/16/21. Symptom localization: right centrum semiovale Stroke mechanism: cardioembolic vs lacunar/lipohyalinosis, cannot rule out hypercoagulable given stroke occurred while on apixaban (lacunar strokes are oft en stuttering with waxing/waning symptoms over several days before plateauing) Stroke WorkUp: - CT head: initial showed no hemorrhage or hypodensity. Repeat on 01/20 shows new hypodensities in the right centrum semiovale/smith radiata and right parietal lobes. - CTA head/neck: mild right ICA stenosis, diffuse intracranial atherosclerosis of both anterior and posterior circulation - MRI brain: subacute infarct in the right centrum semiovale/smith radiata, old infarct in the left cerebellum. Repeat MRI brain shows slight extension of known right CS/CR infarct, no new infarcts. - TTE: EF 60-65%, mild aortic sclerosis without aortic stenosis, no intra-atrial shunt - Telemetry: Afib - A1c: 6.8 - FLP: unable to calculate 2/2 hyperTG - Troponin, TSH: negative, WNL - Hypercoagulability panel: pending - Outpatient malignancy workup (skin cancer screening, colon cancer screening): pending Stroke Management: - Continuous cardiac monitoring - Vitals, Neurochecks, NIHSS per unit routine - BP parameters: SBP CAP 180, restart home anti-hypertensives for goal normotension - Consult speech, PT, OT for supportive management - Will outreach counselor concerning stroke education, smoking cessation, healthy diet, physical activity, weight loss - Follow up with PCP for assistance with outpatient goals (BP <130/80, LDL <70, A1c <7) - Follow up in neurology clinic in 6-8 weeks with SHAUN Stovall - For post-stroke spasms, can start baclofen 10mg qhs to see if this is helpful for him and consider a knee/foot brace to help with positioning while in the bed as the angle his leg is in is causing him pain (baclofen ordered prn) Secondary Stroke Prevention: - Antiplatelet: ASA 81mg po daily (due to cardiac history) - Anticoagulation: continue apixaban - Statin: continue ezetimibe/fenofibrate. Consider starting vascepa and/or Repatha for hyperTG/HLD given diffuse intracranial atherosclerosis to maximize medical therapy HTN: - BP parameters, as above - Restart home medications with goal of lowering BP to normotension over next 1- 2 days FEN/GI: - Diet: Cardiac HH diet and PO meds given absence of bulbar signs or symptoms - Monitor lytes and replete PRN Glucose Control: - Sliding scale insulin and accuchecks per primary team to avoid hyperglycemia Thank you for this interesting consult. Plan of care was discussed with primary team. Please call with any questions. (3) Atrial fibrillation: Admission and Anticipated Discharge Date Admission Date: January 18, 2021 Subjective NAEs overnight. Very drowsy this afternoon after getting sedation for his MRI. Review of Systems Review of Systems: Difficult to assess 2/2 drowsiness Results & Data ([facility]) Vital Signs (Past 12 Hours) Vital Signs Temp Pulse Pulse Pulse Resp BP Pulse Ox 01/23/21 11:30 36.6 C 64 18 115/75 97 01/23/21 07:30 36.3 C L 75 18 153/80 H 95 01/23/21 07:09 58 L 01/23/21 04:08 36.7 C 56 L 18 118/59 L 96 Exam (Neuro) Physical Exam: General Exam: GEN: NAD, sitting down in examination bed. HEENT: No conjunctival injection, no rhinorrhea. CV: RRR on monitor, no significant edema. PULM: Nonlabored respirations on room air. Neuro Exam: MS: Drowsy, required frequent stimulation to stay awake that he attributed to getting sedation for the MRI. Speech fluent and appropriate without dysarthria or paraphasic errors. Language intact including naming, comprehension, repetition. CN: Left FP. Hearing intact to conversation. Shoulder shrug normal in the right, minimal in the left. MOTOR: Normal bulk, flaccid tone in LUE/LLE. RUE strength 5/5 at deltoids, biceps, triceps, wrist flexors and extensors; LUE flaccid. RLE strength 5/5 at iliopsoas, hamstrings, quadriceps, tibialis anterior, and gastrocnemius; LLE flaccid. REFLEXES: 1+ at biceps, triceps, brachioradialis, 1+ patella, and absent Achilles bilaterally. Flexor plantar responses bilaterally. SENSORY: Intact to LT throughout, no extinction to double simultaneous stimuli. COORDINATION: No dysmetria or ataxia on [id number] in the RUE. GAIT: Deferred due to physical status. NIH STROKE SCALE 1A. Level of Consciousness (0-3) = 0 1B. LOC Questions (0-2) = 0 1C. LOC Commands (0-2) = 0 2. Best Horizontal Gaze (0-2) = 0 3. Visual Rankin (0-3) = 0 4. Facial Palsy (0-3) = 3 5. Motor Arm Right (0-4) = 0 Left (0-4) = 4 6. Motor Leg Right (0-4) = 0 Left (0-4) = 4 7. Limb Ataxia (0-2) = 0 8. Sensory (0-2) = 0 9. Best Language (0-3) = 0 10. Dysarthria (0-2) = 0 11. Extinction and Inattention (0-2) = 0 NIHSS TOTAL = 11 PG Care Time/CCT Total # of Minutes Spent Total Time Spent with Patient: Total time spent is greater than 50% in coordination of care (as documented) at patient's floor/unit and/or counseling patient: Coding Level of Care Code 75271 Subseq Hosp Care Lvl 2 Diagnoses Acute left-sided weakness R53.1 Stroke I63.9 Atrial fibrillation I48.0 Atrial fibrillation type: paroxysmal (1) Atrial fibrillation Atrial fibrillation type: paroxysmal Qualified Code(s): I48.0 - Paroxysmal atrial fibrillation
--- NOTE | 2021-01-23 16:19 | Billing Data ---
Date of Service January 23, 2021 Coding Level of Care Code D/C Day Management <30 mins
[2021-01-28 10:52] LABS: Anti Nuclear Antibody Screen POSITIVE (NEGATIVE); B2 Glycoprotein IgA <9 SAU (<=20); B2 Glycoprotein IgG <9 SGU (<=20); B2 Glycoprotein IgM <9 SMU (<=20); Phosphatidylserine IgG <10 U/mL (<10); Phosphatidylserine IgM <25 U/mL (<25)
[2021-01-28 14:31] LABS: DRVVT Neutralization (Reflex) Negative (Negative)
[2021-01-28 14:36] LABS: ANA Titer 1:40 titer
== END 2021-01-23 16:59 | DRG 65 ==
LOC: ED 23:46 → 1E 23:46 → SUATTDRO 01-17 01:52 → 2N 01-17 01:53 → 1E 01-17 02:17 → SUATTDRO 01-18 16:48

== ENCOUNTER 2021-01-27 10:39 | Observation (INO) ==
[~2021-01-27 10:39] MED LIST changes: -ASPEC325 PO; -ATOR-22 PO; -COENZYME PO; -GLC500 PO; -MULT-506 PO; -NSP500 PO; -OMEG10007 PO; +OPTIRAY 350 500ml IV ONE
--- NOTE | 2021-01-27 11:11 | CT Scan Report ---
CT head/brain wo con, CT angio neck with con, CT angio head w con CLINICAL HISTORY: 75 years-old Male with Stroke Like Symptoms. Acute strokelike symptoms TECHNIQUE: Multiple axial CT images of the head were obtained without contrast. CTA head and neck was also obtained following the intravenous administration of 120 mL Optiray 320. 3-D coronal and sagitt al MIPS were obtained from the axial data set and were symmetric for review. All measurements were ob tained according to NASCET criteria. A dose lowering technique was utilized adhering to the principle s of ALARA. CT DOSE: 1241.44 mGy.cm COMPARISON: CTA head and neck of same day, head CT 01/20/2021, brain MRI 01/23/2021, CTA head and neck 01/17/2021. 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 Cerebral vascular calcifications. The calvarium is intact. Trace right mastoid effusion. Left mastoid air cells are clear. Unremarkabl e orbits. CTA HEAD AND NECK: Imaged opacified pulmonary artery is unremarkable. Moderate mixed plaque of the thoracic aorta and pr oximal great vessels. Small shoulder plaque involves the proximal aspect of the left subclavian arter y. Innominate and imaged subclavian arteries are patent. Mild atheromatous plaque of the distal commo n carotid arteries. Moderate mixed plaque of the carotid bulbs and proximal cervical segments of the internal carotid arteries, left greater than right results in less than 50% stenosis bilaterally. The re is unchanged multifocal luminal irregularity of the distal cervical segment and proximal petrous s egment of the right internal carotid artery resulting in approximately 50% stenosis on image 343. Abilio cified plaque of the cavernous and supraclinoid segments. Mild and moderate multifocal luminal narrow ing of the middle and anterior cerebral arteries is unchanged. Dominant left vertebral artery. Multif ocal luminal narrowing of the distal vertebral arteries is also stable. Moderate narrowing of the mid basilar artery is stable. Unchanged mild to moderate multifocal luminal narrowing of the posterior c erebral arteries. No aneurysm, dissection, high-grade stenosis or arterial occlusion identified. Cere bral venous sinuses are patent. No abnormal intracranial enhancement. No pneumothorax. Prior median sternotomy with incomplete bony healing of the sternotomy site. Unremar kable soft tissues. Multilevel degenerative changes of the spine. IMPRESSION: 1. No acute intracranial abnormality. 2. Expected evolutionary changes of the small subacute infarct of the smith radiata right frontal lo be. 3. Age-related involutional changes with chronic microvascular ischemic disease. 4. Unchanged CTA of the head and neck which is stable from the 01/17/2021 exam with multifocal mild an d moderate luminal narrowing. No new high-grade stenosis or arterial occlusion identified. ACT 112: Negative or not required by law. The above report was generated using voice recognition software. It may contain grammatical, syntax o r spelling errors. Electronically signed by: Antonio Whipple M.D. 01/27/2021 11:10 AM
--- NOTE | 2021-01-27 11:13 | XRay Report ---
XR chest 1V portable CLINICAL HISTORY: Stroke Like Symptoms COMPARISON STUDY: 01/17/2021 FINDINGS: There are postsurgical changes of a midline sternotomy. The heart is the upper limits of no rmal in size. There is no acute parenchymal consolidation. There is stable subsegmental left lower lo be atelectatic changes. There is a calcified left upper lung zone granuloma.[There are no significant pleural effusions. IMPRESSION: No significant change from the prior study. Stable left basilar opacities, likely represe nting subsegmental atelectasis ACT 112: Negative or not required by law. Electronically signed by: Gordo Green M.D. 01/27/2021 11:12 AM
[2021-01-27 11:19] LABS: Basophils # (auto) 0.04 K/uL (0-0.2); Basophils % (auto) 0.6 %; Eosinophils # (auto) 0.08 K/uL (0-0.5); Eosinophils % (auto) 1.1 %; Hematocrit (blood only) 43.1 % (42-52); Hemoglobin 14.5 g/dL (14.0-18.0); Immature Granulocytes # (auto) 0.02 K/uL (0.00-0.02); Immature Granulocytes % (auto) 0.3 %; Lymphocytes # (auto) 0.99 K/uL (1.2-3.4); Lymphocytes % (auto) 13.9 %; Mean Corpuscular Hemoglobin 29.5 pg (25-34); Mean Corpuscular Hgb Conc 33.6 g/dL (32-36); Mean Corpuscular Volume 87.6 fL (80-100); Mean Platelet Volume 11.5 fL (7.4-10.4); Monocytes # (auto) 0.58 K/uL (0.11-0.59); Monocytes % (auto) 8.1 %; Neutrophils # (auto) 5.43 K/uL (1.4-6.5); Platelet Count 164 K/uL (130-400); RDW Coefficient of Variation 14.4 % (11.5-14.5); RDW Standard Deviation 46.1 fL (36.4-46.3); Red Blood Count 4.92 M/uL (4.7-6.1); White Blood Count 7.14 K/uL (4.8-10.8)
[2021-01-27 11:32] LABS: INR 1.2 (0.9-1.1); Partial Thromboplastin Ratio 1.3; Prothrombin Time 11.8 Seconds (9.0-12.0)
[2021-01-27 11:37] LABS: Alanine Aminotransferase 22 U/L (12-78); Albumin Level 3.7 gm/dl (3.4-5.0); Aspartate Aminotransferase 12 U/L (15-37); BUN Creatinine Ratio 20.8 (10-20); Blood Urea Nitrogen 41 mg/dl (7-18); Calcium 8.9 mg/dl (8.5-10.1); Carbon Dioxide 23 mmol/L (21-32); Chloride 107 mmol/L (98-107); Est GFR (African American) 37.4; Est GFR (Non-African American) 32.3; Glucose 154 mg/dl (70-99); Magnesium 2.5 mg/dl (1.8-2.4); Potassium 4.6 mmol/L (3.5-5.1); Sodium 136 mmol/L (136-145)
[2021-01-27 11:42] LABS: Albumin Globulin Ratio 1.2 (0.9-2); Alkaline Phosphatase 70 U/L (45-117); Bilirubin,Total 0.4 mg/dl (0.2-1); Globulin 3.1 gm/dl (2.5-4.0); Total Protein 6.8 gm/dl (6.4-8.2); Troponin I < 0.015 ng/ml (0-0.045)
--- NOTE | 2021-01-27 11:47 | Emergency Department Note ---
Impression & Plan Acute CVA (cerebrovascular accident), Acute alteration in mental status ED Provider Note NAME: CAIN NAZARIO AGE: 75 SEX: M : 1945 ARRIVES VIA: Ambulance INFORMANT: Patient, the patient's daughter, EMS ED PROVIDER(S): Horacio Erwin DO CHIEF COMPLAINT: Strokelike symptoms HPI: The patient is a 75-year-old male who presented to the emergency department for an evaluation of strokelike symptoms. The patient was recently our facility and diagnosed with a stroke. He was discharged to [facility] for inpatient rehab. The patient's last known well time was 4 AM. He was checked on at that time and given morning medications and appeared to be at his baseline. The patient was checked on again later in the morning. The patient was found to be very obtunded and did not appear to be able to answer questions. 911 was called and the patient was presenting to the emergency department. The patient was made a stroke alert prior to arrival after the prehospital personnel called and the patient went directly to CAT scan. Upon my evaluation the patient was able to follow commands but appears to have significant difficulty speaking. He denies having any headache or chest pain. He denies having any recent trauma. The patient has been compliant with his outpatient medication regimen which includes Eliquis. ROS: See above HPI for pertinent positives & negatives. A total of 10 systems reviewed and were otherwise negative. PAST MEDICAL HISTORY: See Below PAST SURGICAL HISTORY: See Below FAMILY HISTORY: See Below SOCIAL HISTORY: See Below HOME MEDICATIONS: See Below ALLERGIES: See Below VITALS: See Below PHYSICAL EXAMINATION: GENERAL: The patient is awake to loud verbal commands. He is slow to answer questions and only answers yes or no questions. He does not appear to be able t o speak full sentences. EYES: The conjunctivae are clear. The pupils are round and reactive. EARS, NOSE, MOUTH AND THROAT: The nose is without any evidence of any deformity. NECK: The neck is nontender and supple. RESPIRATORY: Normal respiratory effort is noted there is no evidence of wheezing rhonchi or rales CARDIOVASCULAR: Regular rate and rhythm noted there no murmurs rubs or gallops normal S1 normal S2. GASTROINTESTINAL: The abdomen is soft. Abdomen is nontender. MUSCULOSKELETAL/EXTREMITIES: There is no evidence of gross deformity full range of motion is noted in the hips and shoulders. SKIN: There is no obvious evidence of any rash. There are no petechiae, pallor or cyanosis noted. NEUROLOGIC: The patient is awake to verbal commands. He has no gaze preference. He has significant left-sided weakness compared to the right. This appears to be in his upper and lower extremities. MEDICAL DECISION MAKING: The patient is a 75-year-old male who presented to the emergency department as a stroke alert. The patient had a stroke last week and presented to our facility at that time. The patient does take oral anticoagulation. The patient was discharged from our facility. He did have some evolution of his stroke noted on MRI prior to discharge. The patient's last known well time was 4:00 this morning when he was checked on and given morning medications. The patient was reevaluated in the later afternoon he was found to be obtunded and had significant difficulty speaking. The patient was made a stroke alert prior to arrival and taken directly to CAT scan. The patient was found to be near aphasic but was able to answer very simple yes/no questions. His weakness on his left side appears to be consistent with his previous stroke. The patient had no gaze preference. The patient's daughter came to the emergency department and states that his aphasia is new compared to previous. The patient's CAT scan shows no acute disease including no hemorrhagic component or new stroke. CT angiography did not show any new occlusion but does show some mild to moderate stenosis. I discussed the patient's condition with the on-call [facility] hospitalist group. They were able to determine the patient was started on baclofen and some of this could be due to medication reaction as the patient's symptoms were slowly improving while he was in the emergency department. At this time further neuro imaging is pending. Triage Nursing notes reviewed. Prior medical records reviewed Vital Signs: reviewed and remarkable for elevated blood pressure. Differential diagnosis: Infection, dehydration, metabolic abnormality, hypo/hyperglycemia, electrolyte disturbance, anemia, hypoxia, cardiac sources, intracerebral event, toxicologic, neurologic, as well as other pathologies. ER treatment provided: See below Diagnostics interpreted by me: ECG: EKG was obtained in the emergency department. My interpretation is normal sinus rhythm at 87 bpm. There is no ectopy. There is no acute ST segment abnormalities noted. This was compared to a tracing from January 162020. No significant changes were noted. Cardiac Monitoring: An order was placed for continuous cardiac monitoring. The monitor shows a rate of 89 bpm with sinus rhythm. Laboratory studies: As stated above and show below. Imaging studies: See below Consultation(s): I discussed this case with Dr. Hernandez who is on-call for the [facility] hospitalist group. They will evaluate the patient in the emergency department. ED COURSE: The patient was made a stroke alert prior to arrival. He was not a TPA candidate given his current use of Eliquis. He was also not inside the 3-hour window and does have a history of a recent ischemic stroke. He was also not found to have a large vessel occlusion. Angiography appears unchanged from previous. He does not appear to be a candidate for mechanical thrombectomy. Past Med/Surg History Medical History Accidental drug overdose Atelectasis 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 Restless leg syndrome TIA (transient ischemic attack) Type II diabetes mellitus Surgical History H/O knee surgery stent behind left knee 2017 H/O vasectomy History of angioplasty of peripheral vessel LLE angiogram with [employer] popliteal 05/23/2018 Hx of colonoscopy 2017 S/P CABG x 3 Family History Grandfather Colorectal cancer Mother Diabetes Hypertension Brother Stroke Social History Smoking Status: Unknown if ever smoked Tobacco Type: Cigarettes Second Hand Exposure: No; Hx Alcohol Use: Yes Alcohol type: beer Hx Substance Use: No Preferred Language: Bermudian Communication Ability: Effective 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 Required: No Beliefs That Will Affect Care: None marital status: Single Current Living Situation: Alone current occupational status: retired Feels Safe at Home: Yes Assistive Devices: None Allergies Allergies Allergy/AdvReac Type Severity Reaction Status Date / Time niacin Allergy Unknown ARTHRALGIAS Verified 01/27/21 13:55 FROM ADVICOR telithromycin Allergy Unknown ARTHRALGIAS Verified 01/27/21 13:55 FROM ADVICOR atorvastatin AdvReac Intermediate Muscle Pain Verified 01/27/21 13:55 lovastatin AdvReac Intermediate ARTHRALGIAS Verified 01/27/21 13:55 FROM ADVICOR [id number] Reductase AdvReac Intermediate Muscle Pain Verified 01/27/21 13:55 Inhibitor STERIODS Allergy Unknown Unknown Uncoded 01/27/21 13:55 Home Meds Home Medications Medication Instructions Recorded Confirmed aspirin 81 mg PO QAM 08/08/18 01/27/21 multivitamin 1 tab PO QAM 08/08/18 01/27/21 ezetimibe 10 mg PO QAM 11/11/19 01/27/21 fenofibrate nanocrystallized 48 mg PO QAM 11/27/20 01/27/21 Eliquis 5 mg PO BID 01/17/21 01/27/21 ferrous sulfate 325 mg PO QAM 01/17/21 01/27/21 metoprolol succinate 25 mg PO QPM 01/17/21 01/27/21 omeprazole 20 mg PO QAM 01/17/21 01/27/21 ropinirole 0.5 mg PO QPM 01/17/21 01/27/21 cholecalciferol (vitamin D3) 2,000 unit PO QAM 01/27/21 01/27/21 [Vitamin D3] docusate sodium 100 mg PO BID 01/27/21 01/27/21 insulin regular human [Humulin R 1 sliding scale dose SUBCUT 01/27/21 01/27/21 Regular U-100 Insuln] USEASDIRECTD pantoprazole 40 mg PO QAM 01/27/21 01/27/21 Previous Rx's Medication Instructions Recorded baclofen 10 mg PO QPM PRN #30 tab 01/23/21 lisinopril 10 mg PO QAM #0 tab 01/23/21 Results & Data (ED) Vital Signs Vital Signs - 24 hr 01/27/21 10:39 01/27/21 10:57 01/27/21 11:17 Pulse Rate 82 82 61 Pulse Rate from SpO2 Sensor 82 61 Respiratory Rate 18 18 23 Respiratory Effort / Characteristics Non-Labored Spontaneous Respiratory Depth Normal Respiratory Pattern Regular Blood Pressure 179/89 H 179/89 H 171/94 H Blood Pressure Mean 119 119 119 Pulse Oximetry 99 98 97 Oxygen Delivery Method Room Air Sepsis Recent Fever Within 48 Hours No Sepsis New/Unexplained Change in Mental Status No Sepsis Action Taken by Nursing No Action Required 01/27/21 11:30 01/27/21 11:46 01/27/21 12:16 Pulse Rate 61 63 60 Pulse Rate from SpO2 Sensor 61 62 61 Respiratory Rate 21 24 20 Respiratory Effort / Characteristics Respiratory Depth Respiratory Pattern Blood Pressure 165/88 H 169/60 H 122/67 Blood Pressure Mean 113 96 85 Pulse Oximetry 98 100 99 Oxygen Delivery Method Sepsis Recent Fever Within 48 Hours Sepsis New/Unexplained Change in Mental Status Sepsis Action Taken by Nursing 01/27/21 12:31 01/27/21 12:46 Pulse Rate 59 L 62 Pulse Rate from SpO2 Sensor 58 L 62 Respiratory Rate 17 17 Respiratory Effort / Characteristics Respiratory Depth Respiratory Pattern Blood Pressure 146/66 H 125/79 Blood Pressure Mean 92 94 Pulse Oximetry 99 98 Oxygen Delivery Method Sepsis Recent Fever Within 48 Hours Sepsis New/Unexplained Change in Mental Status Sepsis Action Taken by Jail Medications Current Medication List: was personally reviewed by me Laboratory Data Attestation: I reviewed the patient's lab results. Result diagrams: 01/27/21 11:06 01/27/21 11:06 Lab Results 01/27/21 01/27/21 01/27/21 Range/Units 11:06 11:06 11:06 WBC 7.14 (4.8-10.8) K/uL RBC 4.92 (4.7-6.1) M/uL Hgb 14.5 (14.0-18.0) g/dL Hct 43.1 (42-52) % MCV 87.6 (80-100) fL MCH 29.5 (25-34) pg MCHC 33.6 (32-36) g/dL RDW Std Deviation 46.1 (36.4-46.3) fL RDW Coeff of Brice 14.4 (11.5-14.5) % Plt Count 164 (130-400) K/uL MPV 11.5 H (7.4-10.4) fL Immature Gran % (Auto) 0.3 % Neut % (Auto) 76.0 % Lymph % (Auto) 13.9 % [place] % (Auto) 8.1 % Eos % (Auto) 1.1 % Baso % (Auto) 0.6 % Neut # (Auto) 5.43 (1.4-6.5) K/uL Lymph # (Auto) 0.99 L (1.2-3.4) K/uL [place] # (Auto) 0.58 (0.11-0.59) K/uL Eos # (Auto) 0.08 (0-0.5) K/uL Baso # (Auto) 0.04 (0-0.2) K/uL Immature Gran # (Auto) 0.02 (0.00-0.02) K/uL PT 11.8 (9.0-12.0) Seconds INR 1.2 H (0.9-1.1) APTT 34.0 H (21.0-31.0) Seconds PTT Ratio 1.3 Sodium 136 (136-145) mmol/L Potassium 4.6 (3.5-5.1) mmol/L Chloride 107 (98-107) mmol/L Carbon Dioxide 23 (21-32) mmol/L Anion Gap 6.0 (3-11) BUN 41 H (7-18) mg/dl Creatinine 1.97 H (0.6-1.4) mg/dl Est Cr Clr Drug Dosing Not Reportable Est GFR ( Amer) 37.4 Est GFR (Non-Af Amer) 32.3 BUN/Creatinine Ratio 20.8 H (10-20) Glucose 154 H (70-99) mg/dl POC Glucose (70-99) mg/dl Calcium 8.9 (8.5-10.1) mg/dl Magnesium 2.5 H (1.8-2.4) mg/dl Total Bilirubin 0.4 (0.2-1) mg/dl AST 12 L (15-37) U/L ALT 22 (12-78) U/L Alkaline Phosphatase 70 (45-117) U/L Troponin I < 0.015 (0-0.045) ng/ml Total Protein 6.8 (6.4-8.2) gm/dl Albumin 3.7 (3.4-5.0) gm/dl Globulin 3.1 (2.5-4.0) gm/dl Albumin/Globulin Ratio 1.2 (0.9-2) Urine Color Urine Appearance (Clear) Urine pH (4.5-7.5) Ur Specific [place] (1.000-1.030) Urine Protein (Negative) Urine Glucose (UA) (Negative) Urine Ketones (Negative) Urine Blood (Negative) Urine Nitrite (Negative) Urine Bilirubin (Negative) Urine Urobilinogen (Negative) Ur Leukocyte Esterase (Negative) COVID-19 Eval Order SARS-CoV-2 (PCR) (Negative) Influenza Type A (PCR) (Neg) Influenza Type B (PCR) (Neg) RSV (RT-PCR) (Neg) 01/27/21 01/27/21 01/27/21 Range/Units 11:07 11:45 11:45 WBC (4.8-10.8) K/uL RBC (4.7-6.1) M/uL Hgb (14.0-18.0) g/dL Hct (42-52) % MCV (80-100) fL MCH (25-34) pg MCHC (32-36) g/dL RDW Std Deviation (36.4-46.3) fL RDW Coeff of Brice (11.5-14.5) % Plt Count (130-400) K/uL MPV (7.4-10.4) fL Immature Gran % (Auto) % Neut % (Auto) % Lymph % (Auto) % [place] % (Auto) % Eos % (Auto) % Baso % (Auto) % Neut # (Auto) (1.4-6.5) K/uL Lymph # (Auto) (1.2-3.4) K/uL [place] # (Auto) (0.11-0.59) K/uL Eos # (Auto) (0-0.5) K/uL Baso # (Auto) (0-0.2) K/uL Immature Gran # (Auto) (0.00-0.02) K/uL PT (9.0-12.0) Seconds INR (0.9-1.1) APTT (21.0-31.0) Seconds PTT Ratio Sodium (136-145) mmol/L Potassium (3.5-5.1) mmol/L Chloride (98-107) mmol/L Carbon Dioxide (21-32) mmol/L Anion Gap (3-11) BUN (7-18) mg/dl Creatinine (0.6-1.4) mg/dl Est Cr Clr Drug Dosing Est GFR ( Amer) Est GFR (Non-Af Amer) BUN/Creatinine Ratio (10-20) Glucose (70-99) mg/dl POC Glucose 153 H (70-99) mg/dl Calcium (8.5-10.1) mg/dl Magnesium (1.8-2.4) mg/dl Total Bilirubin (0.2-1) mg/dl AST (15-37) U/L ALT (12-78) U/L Alkaline Phosphatase (45-117) U/L Troponin I (0-0.045) ng/ml Total Protein (6.4-8.2) gm/dl Albumin (3.4-5.0) gm/dl Globulin (2.5-4.0) gm/dl Albumin/Globulin Ratio (0.9-2) Urine Color Urine Appearance (Clear) Urine pH (4.5-7.5) Ur Specific [place] (1.000-1.030) Urine Protein (Negative) Urine Glucose (UA) (Negative) Urine Ketones (Negative) Urine Blood (Negative) Urine Nitrite (Negative) Urine Bilirubin (Negative) Urine Urobilinogen (Negative) Ur Leukocyte Esterase (Negative) COVID-19 Eval Order [facility]Rsv at [facility] SARS-CoV-2 (PCR) NEGATIVE (Negative) Influenza Type A (PCR) Negative (Neg) Influenza Type B (PCR) Negative (Neg) RSV (RT-PCR) Negative (Neg) 01/27/21 Range/Units 12:15 WBC (4.8-10.8) K/uL RBC (4.7-6.1) M/uL Hgb (14.0-18.0) g/dL Hct (42-52) % MCV (80-100) fL MCH (25-34) pg MCHC (32-36) g/dL RDW Std Deviation (36.4-46.3) fL RDW Coeff of Brice (11.5-14.5) % Plt Count (130-400) K/uL MPV (7.4-10.4) fL Immature Gran % (Auto) % Neut % (Auto) % Lymph % (Auto) % [place] % (Auto) % Eos % (Auto) % Baso % (Auto) % Neut # (Auto) (1.4-6.5) K/uL Lymph # (Auto) (1.2-3.4) K/uL [place] # (Auto) (0.11-0.59) K/uL Eos # (Auto) (0-0.5) K/uL Baso # (Auto) (0-0.2) K/uL Immature Gran # (Auto) (0.00-0.02) K/uL PT (9.0-12.0) Seconds INR (0.9-1.1) APTT (21.0-31.0) Seconds PTT Ratio Sodium (136-145) mmol/L Potassium (3.5-5.1) mmol/L Chloride (98-107) mmol/L Carbon Dioxide (21-32) mmol/L Anion Gap (3-11) BUN (7-18) mg/dl Creatinine (0.6-1.4) mg/dl Est Cr Clr Drug Dosing Est GFR ( Amer) Est GFR (Non-Af Amer) BUN/Creatinine Ratio (10-20) Glucose (70-99) mg/dl POC Glucose (70-99) mg/dl Calcium (8.5-10.1) mg/dl Magnesium (1.8-2.4) mg/dl Total Bilirubin (0.2-1) mg/dl AST (15-37) U/L ALT (12-78) U/L Alkaline Phosphatase (45-117) U/L Troponin I (0-0.045) ng/ml Total Protein (6.4-8.2) gm/dl Albumin (3.4-5.0) gm/dl Globulin (2.5-4.0) gm/dl Albumin/Globulin Ratio (0.9-2) Urine Color Yellow Urine Appearance Clear (Clear) Urine pH 5.0 (4.5-7.5) Ur Specific [place] > 1.045 H (1.000-1.030) Urine Protein Negative (Negative) Urine Glucose (UA) Negative (Negative) Urine Ketones Negative (Negative) Urine Blood Negative (Negative) Urine Nitrite Negative (Negative) Urine Bilirubin Negative (Negative) Urine Urobilinogen Negative (Negative) Ur Leukocyte Esterase Negative (Negative) COVID-19 Eval Order SARS-CoV-2 (PCR) (Negative) Influenza Type A (PCR) (Neg) Influenza Type B (PCR) (Neg) RSV (RT-PCR) (Neg) Administered Medications Discontinued Medications Aspirin (Aspirin 300 Mg Supp) 300 mg SC ONE ONE Stop: 01/27/21 12:52 Last Admin: 01/27/21 13:43 Dose: 300 mg Documented by: [id number] Ioversol (Optiray 350 500ml) 120 ml IV ONCE ONE Stop: 01/27/21 10:38 Last Admin: 01/27/21 10:38 Dose: 120 ml Documented by: [id number] Imaging Data Radiologist's Impression: Chest X-Ray 01/27/21 10:33 XR chest 1V portable CLINICAL HISTORY: Stroke Like Symptoms COMPARISON STUDY: 01/17/2021 FINDINGS: There are postsurgical changes of a midline sternotomy. The heart is the upper limits of normal in size. There is no acute parenchymal consolidation. There is stable subsegmental left lower lobe atelectatic changes. There is a calcified left upper lung zone granuloma.[There are no significant pleural effusions. IMPRESSION: No significant change from the prior study. Stable left basilar opacities, likely representing subsegmental atelectasis ACT 112: Negative or not required by law. Electronically signed by: Gordo Green M.D. 01/27/2021 11:[address] 01/27/21 10:33 CT head/brain wo con, CT angio neck with con, CT angio head w con CLINICAL HISTORY: 75 years-old Male with Stroke Like Symptoms. Acute strokelike symptoms TECHNIQUE: Multiple axial CT images of the head were obtained without contrast. CTA head and neck was also obtained following the intravenous administration of 120 mL Optiray 320. 3-D coronal and sagittal MIPS were obtained from the axial data set and were symmetric for review. All measurements were obtained according to NASCET criteria. A dose lowering technique was utilized adhering to the principles of ALARA. CT DOSE: 1241.44 mGy.cm COMPARISON: CTA head and neck of same day, head CT 01/20/2021, brain MRI , CTA head and neck 01/17/2021. FINDINGS: CT HEAD: No acute intracranial hemorrhage, midline shift, intracranial mass, hydrocepha louis, acute territorial infarct or abnormal extra-axial collection.Subacute infarct of the smith radiata right frontal lobe measure 1.6 cm demonstrates expected evolutionary changes. Age-related involutional changes with chronic microvascular ischemic disease. Cerebral vascular calcifications. The calvarium is intact. Trace right mastoid effusion. Left mastoid air cells are clear. Unremarkable orbits. CTA HEAD AND NECK: Imaged opacified pulmonary artery is unremarkable. Moderate mixed plaque of the thoracic aorta and proximal great vessels. Small shoulder plaque involves the proximal aspect of the left subclavian artery. Innominate and imaged subclavian arteries are patent. Mild atheromatous plaque of the distal common carotid arteries. Moderate mixed plaque of the carotid bulbs and proximal cervical segments of the internal carotid arteries, left greater than right results in less than 50% stenosis bilaterally. There is unchanged multifocal luminal irregularity of the distal cervical segment and proximal petrous segment of the right internal carotid artery resulting in approximately 50% stenosis on image 343. Calcified plaque of the cavernous and supraclinoid segments. Mild and moderate multifocal luminal narrowing of the middle and anterior cerebral arteries is unchanged. Dominant left vertebral artery. Multifocal luminal narrowing of the distal vertebral arteries is also stable. Moderate narrowing of the mid basilar artery is stable. Unchanged mild to moderate multifocal luminal narrowing of the posterior cerebral arteries. No aneurysm, dissection, high- grade stenosis or arterial occlusion identified. Cerebral venous sinuses are patent. No abnormal intracranial enhancement. No pneumothorax. Prior median sternotomy with incomplete bony healing of the sternotomy site. Unremarkable soft tissues. Multilevel degenerative changes of the spine. IMPRESSION: 1. No acute intracranial abnormality. 2. Expected evolutionary changes of the small subacute infarct of the smith radiata right frontal lobe. 3. Age-related involutional changes with chronic microvascular ischemic disease. 4. Unchanged CTA of the head and neck which is stable from the 01/17/2021 exam with multifocal mild and moderate luminal narrowing. No new high-grade stenosis or arterial occlusion identified. ACT 112: Negative or not required by law. The above report was generated using voice recognition software. It may contain grammatical, syntax or spelling errors. Electronically signed by: Antonio Whipple M.D. 01/27/2021 11:10 AM Head CTA 01/27/21 10:33 CT head/brain wo con, CT angio neck with con, CT angio head w con CLINICAL HISTORY: 75 years-old Male with Stroke Like Symptoms. Acute strokelike symptoms TECHNIQUE: Multiple axial CT images of the head were obtained without contrast. CTA head and neck was also obtained following the intravenous administration of 120 mL Optiray 320. 3-D coronal and sagittal MIPS were obtained from the axial data set and were symmetric for review. All measurements were obtained according to NASCET criteria. A dose lowering technique was utilized adhering to the principles of ALARA. CT DOSE: 1241.44 mGy.cm COMPARISON: CTA head and neck of same day, head CT 01/20/2021, brain MRI 01/23/2021, CTA head and neck 01/17/2021. 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 Age-related involutional changes with chronic microvascular ischemic disease. Cerebral vascular calcifications. The calvarium is intact. Trace right mastoid effusion. Left mastoid air cells are clear. Unremarkable orbits. CTA HEAD AND NECK: Imaged opacified pulmonary artery is unremarkable. Moderate mixed plaque of the thoracic aorta and proximal great vessels. Small shoulder plaque involves the proximal aspect of the left subclavian artery. Innominate and imaged subclavian arteries are patent. Mild atheromatous plaque of the distal common carotid arteries. Moderate mixed plaque of the carotid bulbs and proximal cervical segments of the internal carotid arteries, left greater than right results in less than 50% stenosis bilaterally. There is unchanged multifocal luminal irregularity of the distal cervical segment and proximal petrous segment of the right internal carotid artery resulting in approximately 50% stenosis on image 343. Calcified plaque of the cavernous and supraclinoid segments. Mild and moderate multifocal luminal narrowing of the middle and anterior cerebral arteries is unchanged. Dominant left vertebral artery. Multifocal luminal narrow ing of the distal vertebral arteries is also stable. Moderate narrowing of the mid basilar artery is stable. Unchanged mild to moderate multifocal luminal narrowing of the posterior cerebral arteries. No aneurysm, dissection, high- grade stenosis or arterial occlusion identified. Cerebral venous sinuses are patent. No abnormal intracranial enhancement. No pneumothorax. Prior median sternotomy with incomplete bony healing of the sternotomy site. Unremarkable soft tissues. Multilevel degenerative changes of the spine. IMPRESSION: 1. No acute intracranial abnormality. 2. Expected evolutionary changes of the small subacute infarct of the smith radiata right frontal lobe. 3. Age-related involutional changes with chronic microvascular ischemic disease. 4. Unchanged CTA of the head and neck which is stable from the 01/17/2021 exam with multifocal mild and moderate luminal narrowing. No new high-grade stenosis or arterial occlusion identified. ACT 112: Negative or not required by law. The above report was generated using voice recognition software. It may contain grammatical, syntax or spelling errors. Electronically signed by: Antonio Whipple M.D. 01/27/2021 11:10 AM Neck CTA 01/27/21 10:33 CT head/brain wo con, CT angio neck with con, CT angio head w con CLINICAL HISTORY: 75 years-old Male with Stroke Like Symptoms. Acute strokelike symptoms TECHNIQUE: Multiple axial CT images of the head were obtained without contrast. CTA head and neck was also obtained following the intravenous administration of 120 mL Optiray 320. 3-D coronal and sagittal MIPS were obtained from the axial data set and were symmetric for review. All measurements were obtained according to NASCET criteria. A dose lowering technique was utilized adhering to the principles of ALARA. CT DOSE: 1241.44 mGy.cm COMPARISON: CTA head and neck of same day, head CT 01/20/2021, brain MRI 01/23/2021, CTA head and neck 01/17/2021. 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 Age-related involutional changes with chronic microvascular ischemic disease. Cerebral vascular calcifications. The calvarium is intact. Trace right mastoid effusion. Left mastoid air cells are clear. Unremarkable orbits. CTA HEAD AND NECK: Imaged opacified pulmonary artery is unremarkable. Moderate mixed plaque of the thoracic aorta and proximal great vessels. Small shoulder plaque involves the proximal aspect of the left subclavian artery. Innominate and imaged subclavian arteries are patent. Mild atheromatous plaque of the distal common carotid arteries. Moderate mixed plaque of the carotid bulbs and proximal cervical segments of the internal carotid arteries, left greater than right results in less than 50% stenosis bilaterally. There is unchanged multifocal luminal irreg ularity of the distal cervical segment and proximal petrous segment of the right internal carotid artery resulting in approximately 50% stenosis on image 343. Calcified plaque of the cavernous and supraclinoid segments. Mild and moderate multifocal luminal narrowing of the middle and anterior cerebral arteries is unchanged. Dominant left vertebral artery. Multifocal luminal narrowing of the distal vertebral arteries is also stable. Moderate narrowing of the mid basilar artery is stable. Unchanged mild to moderate multifocal luminal narrowing of the posterior cerebral arteries. No aneurysm, dissection, high-grade stenosis or arterial occlusion identified. Cerebral venous sinuses are patent. No abnormal intracranial enhancement. No pneumothorax. Prior median sternotomy with incomplete bony healing of the sternotomy site. Unremarkable soft tissues. Multilevel degenerative changes of the spine. IMPRESSION: 1. No acute intracranial abnormality. 2. Expected evolutionary changes of the small subacute infarct of the smith radiata right frontal lobe. 3. Age-related involutional changes with chronic microvascular ischemic disease. 4. Unchanged CTA of the head and neck which is stable from the 01/17/2021 exam with multifocal mild and moderate luminal narrowing. No new high-grade stenosis or arterial occlusion identified. ACT 112: Negative or not required by law. The above report was generated using voice recognition software. It may contain grammatical, syntax or spelling errors. Electronically signed by: Antonio Whipple M.D. 01/27/2021 11:10 AM Discharge Plan Visit Data Chief Complaint: Stroke Alert Stated Complaint: STROKE ALERT ED Provider: Horacio Erwin Discharge Problem: Acute CVA (cerebrovascular accident), Acute alteration in mental status Patient Disposition: Admitted As Inpatient Condition: Good Discharge Instructions Interventions: ED Discharge Assessment Last Done: 01/27/21 14:55
[2021-01-27 12:26] LABS: Appearance Urine Clear (Clear); Bilirubin Urine Negative (Negative); Blood Urine Negative (Negative); Color Urine Yellow; Glucose Urine UA Negative (Negative); Ketones Urine Negative (Negative); Leukocyte Esterase Urine Negative (Negative); Nitrite Urine Negative (Negative); Protein Urine Negative (Negative); Specific Gravity Urine > 1.045 (1.000-1.030); Urobilinogen Urine Negative (Negative)
--- NOTE | 2021-01-27 12:30 | History & Physical Report ---
Date of Service January 27, 2021 Assessment & Plan (1) Encephalopathy: Acute- likely related to polypharmacy - Baclofen held as this is likely the offending agent in the setting of LUDWIN - Will need to re-evaluate his leg pain and RLS - Hold Ropinirole as well - Neurological exam improving and clearing of drowsiness - no evidence of hypoxia - bicarb normal with no gap - normal glucose (2) Stroke: As per HPI- exam more consistent with polypharmacy - will get MRI of the brain to ensure no extension of CVA - rectal aspirin until cleared by speech - Hold LIZZIE - Continue Metoprolol for rate and rhythm control - currently NSR (3) CKD (chronic kidney disease) stage 3, GFR 30-59 ml/min: (4) LUDWIN (acute kidney injury): LUDWIN stage II on CKD III - baseline BUN 20-36, MOVING CONSULTANT 1.5-1.9 - Hold LIZZIE- UA pending follow protein and RBC - Appears pre-renal at this time. D5LR at 80 cc per hour - avoid further nephrotoxic agents and if needed minimize exposure time - support with IVF until able to take PO (5) Left-sided weakness: Appears at his baseline - after patient mentation improved, he was able to participate better in exam - left leg and left arm still unable to resist past gravity (6) Atrial fibrillation: Currently in NSR - Continue Eliquis- speech therapy to clear swallow screen (7) Depression: Patient was tearful on exam because he was concerned about 's care - Once his mentation improves consider further evaluation and treatment (8) Restless leg syndrome: Follow during hospitalization- no acute needs at this time (9) Hypertriglyceridemia: Statin intolerant- Consider starting Vascepa and/or Repatha with neurology recommendations: - Patient is now at [facility]- continue avenues through PCP (10) DM (diabetes mellitus): Most recent hemoglobin A1c 6.8% Check glucose every 6 while n.p.o. and add supplemental insulin if becomes hyperglycemic Is currently n.p.o. (11) HTN (hypertension): Blood pressures are mildly elevated Holding home lisinopril for LUDWIN Continue Toprol-XL 25 mg (12) GERD (gastroesophageal reflux disease): Continue PPI (13) CAD (coronary artery disease): History of CABG, no acute issues Continue TX aspirin, metoprolol, intolerant of statins History of Present Illness Primary Care Provider: Alejandrina Brooks, DO 75 YOM recently discharged for acute CVA to [facility]. He was found this morning confused, weak, and out of his bed. His past medical history of CAD with 3V CABG, AFIB on Eliquis (is in NSR) CKD III, GERD, HTN, HLD, hypotension, TIA, RLS, DM II. His most recent CVA right centrum semiovale/smith radiata, old infarct in the left cerebellum, and post CVA mri brain imaging showed slight extension of known right CS/CR infarct. Patient was started on ropinirole and baclofen prior to discharge for his restless legs and spasms of the left side. As above the patient was brought to the emergency room via EMS for alteration/obtundation and worsening weakness. The patient is accompanied by his daughter. She states that his speech has been getting more slow and interrupted since discharge from the hospital. She noticed it more on Wednesday. On Wednesday the patient was also confused and disoriented on where he was and why he was there. She also reports that he has been so tired that he has been falling asleep while at rehab. The patient was drowsy and falling asleep during my examination. He had a CT of the head and CTA of the neck done in the emergency room which shows no changes from previous week's imaging. Patient will be admitted for medication adjustment, repeat MRI of the brain, Neurology consult, and optimize medical management. Allergies Allergy/AdvReac Type Severity Reaction Status Date / Time niacin Allergy Unknown ARTHRALGIAS Verified 01/27/21 13:55 FROM ADVICOR telithromycin Allergy Unknown ARTHRALGIAS Verified 01/27/21 13:55 FROM ADVICOR atorvastatin AdvReac Intermediate Muscle Pain Verified 01/27/21 13:55 lovastatin AdvReac Intermediate ARTHRALGIAS Verified 01/27/21 13:55 FROM ADVICOR Oaimpqa-Zar-Xaj Reductase AdvReac Intermediate Muscle Pain Verified 01/27/21 13:55 Inhibitor STERIODS Allergy Unknown Unknown Uncoded 01/27/21 13:55 Home Medications Medication Instructions Recorded Confirmed Type aspirin 81 mg PO QAM 08/08/18 01/27/21 History multivitamin 1 tab PO QAM 08/08/18 01/27/21 History ezetimibe 10 mg PO QAM 11/11/19 01/27/21 History fenofibrate nanocrystallized 48 mg PO QAM 11/27/20 01/27/21 History Eliquis 5 mg PO BID 01/17/21 01/27/21 History ferrous sulfate 325 mg PO QAM 01/17/21 01/27/21 History metoprolol succinate 25 mg PO QPM 01/17/21 01/27/21 History omeprazole 20 mg PO QAM 01/17/21 01/27/21 History ropinirole 0.5 mg PO QPM 01/17/21 01/27/21 History baclofen 10 mg PO QPM PRN #30 tab 01/23/21 01/27/21 Rx lisinopril 10 mg PO QAM #0 tab 01/23/21 01/27/21 Rx cholecalciferol (vitamin D3) 2,000 unit PO QAM 01/27/21 01/27/21 History [Vitamin D3] docusate sodium 100 mg PO BID 01/27/21 01/27/21 History insulin regular human [Humulin R 1 sliding scale dose SUBCUT 01/27/21 01/27/21 History Regular U-100 Insuln] USEASDIRECTD pantoprazole 40 mg PO QAM 01/27/21 01/27/21 History Past Med/Surg History Medical History Accidental drug overdose Atelectasis 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 Restless leg syndrome TIA (transient ischemic attack) Type II diabetes mellitus Surgical History H/O knee surgery stent behind left knee 2017 H/O vasectomy History of angioplasty of peripheral vessel LLE angiogram with COMPLIANCE SPEC popliteal 05/23/2018 Hx of colonoscopy 2017 S/P CABG x 3 Family History Grandfather Colorectal cancer Mother Diabetes Hypertension Brother Stroke Social History Smoking Status: Former smoker Tobacco Type: Cigarettes Second Hand Exposure: No; Do You Dip or Chew Tobacco: No; Tobacco Cessation Education Requested by Patient: No Hx Alcohol Use: Yes Alcohol type: beer Hx Substance Use: No Preferred Language: Slovak Communication Ability: Effective Geospatial Scientist Required: No Beliefs That Will Affect Care: None marital status: Single Current Living Situation: Alone current occupational status: retired Other Information That Helps Us Care for You: No Feels Safe at Home: Yes Assistive Devices: None Review of Systems Review of Systems: REVIEW OF SYSTEMS: Constitutional: (+) fatigue and drowsiness, No fever, sweats or chills Eyes: No diplopia, no worsening or blurred vision ENT: normal hearing, no trouble swallowing Respiratory: No cough, sputum, dyspnea at rest or on exertion Cardiovascular: No chest pain, tightness or palpitations Abdomen: No pain, nausea, vomiting, diarrhea or constipation Musculoskeletal: (+) left sided weakness. No joint pain, calf pain, swelling Neurologic: (+) weakness, numbness/tingling, balance problems Psychiatric: (+) depression, No anxiety Skin: No rash or itch Physical Exam Physical Exam: PHYSICAL EXAM: General: drowsy, alert when awake, no apparent distress Head: Normocephalic, atraumatic ENT: no pharyngeal exudate, mucous membranes moist Neuro: NIHSS-8, PERRLA, EOMI, AAO x 3, speech slow, slurred, but is appropriate, strength intact right upper and lower 5/5, left side 1/5, sensation intact and equal all extremities and dermatomes, left sided drift, finger to nose on right side no overshoot, but is delayed, unable to perform on left side. Sensation is present and intact bilateral left and right to all dermatomes. No neglect Chest: equal rise and fall of the chest, no accessory muscle use, no heaves or thrills, Clear to auscultation, on room air, Cardiac: Regular rate and rhythm, telemetry reviewed, S1S2 with systolic murmur, skin warm dry, cap refill <3 seconds, peripheral pulses +2 no JVD, no JVD, no edema, no carotid bruit GI: NABS x 4 quadrants, soft, nontender to palpation, no rebound, guarding or tenderness : Spontaneously voiding, no pain, no CVA tenderness, Extremities: Normal inspection, no peripheral edema or erythema, calfs nontender to palpation Psych: Normal mood and affect Skin: no rash or erythema Results & Data Results & Data ([facility]) Vital Signs (Past 12 Hours) Vital Signs Pulse Resp BP Pulse Ox 01/27/21 12:16 60 20 122/67 99 01/27/21 11:46 63 24 169/60 H 100 01/27/21 11:30 61 21 165/88 H 98 01/27/21 11:17 61 23 171/94 H 97 01/27/21 10:57 82 18 179/89 H 98 01/27/21 10:39 82 18 179/89 H 99 Laboratory Results Abnormal lab results 01/27/21 01/27/21 01/27/21 Range/Units 11:06 11:06 11:06 MPV 11.5 H (7.4-10.4) fL Lymph # (Auto) 0.99 L (1.2-3.4) K/uL INR 1.2 H (0.9-1.1) APTT 34.0 H (21.0-31.0) Seconds BUN 41 H (7-18) mg/dl Creatinine 1.97 H (0.6-1.4) mg/dl BUN/Creatinine Ratio 20.8 H (10-20) Glucose 154 H (70-99) mg/dl POC Glucose (70-99) mg/dl Magnesium 2.5 H (1.8-2.4) mg/dl AST 12 L (15-37) U/L Ur Specific [place] (1.000-1.030) 01/27/21 01/27/21 Range/Units 11:07 12:15 MPV (7.4-10.4) fL Lymph # (Auto) (1.2-3.4) K/uL INR (0.9-1.1) APTT (21.0-31.0) Seconds BUN (7-18) mg/dl Creatinine (0.6-1.4) mg/dl BUN/Creatinine Ratio (10-20) Glucose (70-99) mg/dl POC Glucose 153 H (70-99) mg/dl Magnesium (1.8-2.4) mg/dl AST (15-37) U/L Ur Specific [place] > 1.045 H (1.000-1.030) Diagnostic Findings MRI OF THE BRAIN WITHOUT CONTRAST---01/23/21 CLINICAL HISTORY: f/u stroke. COMPARISON STUDY: MRI of the brain January 17, 2021. Head CT January 20, 2021. TECHNIQUE: Utilizing a 1.5 Lila magnet and dedicated coil, multiplanar, multiecho imaging of the brain was performed without IV contrast. FINDINGS: A 1.9 cm round focus of restricted diffusion within the right smith radiata has increased in extent since MRI of January 17, 2021 when measured 1.6 cm. Associated T2 hyperintensity consistent with cytotoxic edema has increased. There is no mass effect. There is no hemorrhage. No additional acute to subacute infarcts are present. Ventricular system is stable. Basilar cisterns are patent. There are nodular axial collections. No intracranial masses are identified on this unenhanced exam. Extensive white matter T2 hyperintense foci are unchanged since previous MRI. These suggest small vessel disease. Probable old lacunar infarcts within left cerebellar hemisphere are noted. Calvarial signal is normal. Orbits are unremarkable on this unenhanced exam. There is no evidence for sinusitis. There are postoperative findings within the sinuses. IMPRESSION: 1. Increase in extent of a 1.9 cm acute to subacute infarct within the right smith radiata since MRI of January 17, 2021. 2. Otherwise, unchanged appearance of the brain. Extensive small vessel disease. CT head/brain wo con, CT angio neck with con, CT angio head w con CLINICAL HISTORY: 75 years-old Male with Stroke Like Symptoms. Acute strokelike symptoms TECHNIQUE: Multiple axial CT images of the head were obtained without contrast. CTA head and neck was also obtained following the intravenous administration of 120 mL Optiray 320. 3-D coronal and sagittal MIPS were obtained from the axial data set and were symmetric for review. All measurements were obtained according to NASCET criteria. A dose lowering technique was utilized adhering to the principles of ALARA. CT DOSE: 1241.44 mGy.cm COMPARISON: CTA head and neck of same day, head CT 01/20/2021, brain MRI 01/23/2021, CTA head and neck 01/17/2021. 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 Age-related involutional changes with chronic microvascular ischemic disease. Cerebral vascular calcifications. The calvarium is intact. Trace right mastoid effusion. Left mastoid air cells are clear. Unremarkable orbits. CTA HEAD AND NECK: Imaged opacified pulmonary artery is unremarkable. Moderate mixed plaque of the thoracic aorta and proximal great vessels. Small shoulder plaque involves the proximal aspect of the left subclavian artery. Innominate and imaged subclavian arteries are patent. Mild atheromatous plaque of the distal common carotid arteries. Moderate mixed plaque of the carotid bulbs and proximal cervical segments of the internal carotid arteries, left greater than right results in less than 50% stenosis bilaterally. There is unchanged multifocal luminal irregularity of the distal cervical segment and proximal petrous segment of the right internal carotid artery resulting in approximately 50% stenosis on image 343. Calcified plaque of the cavernous and supraclinoid segments. Mild and moderate multifocal luminal narrowing of the middle and anterior cerebral arteries is unchanged. Dominant left vertebral artery. Multifocal luminal narrowing of the distal vertebral arteries is also stable. Moderate narrowing of the mid basilar artery is stable. Unchanged mild to moderate multifocal luminal narrowing of the posterior cerebral arteries. No aneurysm, dissection, high- grade stenosis or arterial occlusion identified. Cerebral venous sinuses are patent. No abnormal intracranial enhancement. No pneumothorax. Prior median sternotomy with incomplete bony healing of the sternotomy site. Unremarkable soft tissues. Multilevel degenerative changes of the spine. IMPRESSION: 1. No acute intracranial abnormality. 2. Expected evolutionary changes of the small subacute infarct of the smith radiata right frontal lobe. 3. Age-related involutional changes with chronic microvascular ischemic disease. 4. Unchanged CTA of the head and neck which is stable from the 01/17/2021 exam with multifocal mild and moderate luminal narrowing. No new high-grade stenosis or arterial occlusion identified. XR chest 1V portable CLINICAL HISTORY: Stroke Like Symptoms COMPARISON STUDY: 01/17/2021 FINDINGS: There are postsurgical changes of a midline sternotomy. The heart is the upper limits of normal in size. There is no acute parenchymal consolidation. There is stable subsegmental left lower lobe atelectatic changes. There is a calcified left upper lung zone granuloma.[There are no significant pleural effusions. IMPRESSION: No significant change from the prior study. Stable left basilar opacities, likely representing subsegmental atelectasis CLINICAL HISTORY: Stroke Like Symptoms COMPARISON STUDY: 01/17/2021 FINDINGS: There are postsurgical changes of a midline sternotomy. The heart is the upper limits of normal in size. There is no acute parenchymal consolidation. There is stable subsegmental left lower lobe atelectatic changes. There is a calcified left upper lung zone granuloma.[There are no significant pleural effusions. IMPRESSION: No significant change from the prior study. Stable left basilar opacities, likely representing subsegmental atelectasis Medications Administered Discontinued Medications Ioversol (Optiray 350 500ml) 120 ml IV ONCE ONE Stop: 01/27/21 10:38 Last Admin: 01/27/21 10:38 Dose: 120 ml Documented by: [id number] ECG Additional Comments: Test Reason : Blood Pressure : / mmHG Vent. Rate : 087 BPM Atrial Rate : 087 BPM P-R Int : 172 ms QRS Dur : 094 ms QT Int : 408 ms P-R-T Axes : 033 -15 028 degrees QTc Int : 490 ms Normal sinus rhythm Normal ECG When compared with ECG of 16-JAN-2021 23:57, No significant change was found Confirmed by Scar Strauss ([id number]) on 01/27/2021 12:41:21 PM Code Status & VTE Plan Code Status CODE: FULL VTE: SCD's, Eliquis Supervising Physician Co-Signing Physician Notes QUALITY CONTROL DIRECTOR Supervision note: I have personally seen and examined the patient and discussed and verified the morrison points of the history and physical along with the plan with STACEY Roberts with the following exceptions and/or additions: Patient presents to the ER with lethargy and as a stroke alert. His left-sided weakness is the same as it has been since discharge from the hospital. He recently has been increased on baclofen dosing to 3 times daily and Requip was also a new drug added within the last week. He has been at [facility] for rehab after his recent stroke. Denies any pain or shortness of breath, no other issues. When I saw him, he was alert and awake, conversing, and even recalled that I had seen him previously and he remembered that I was a doctor in the [place]. Apparently when he first came in, he was obtunded. History and ROS reviewed as above Vitals reviewed Gen: AAOx3, NAD HEENT: Anicteric sclerae, EOMI CV: RRR no mgr nl S1S2 Pulm: CTAB no wcr Abd: +BS soft NT ND no masses or hernias Ext: No edema, 2+ DP pulses Skin: No rashes, warm/dry Neuro: 1/5 strength throughout upper and lower extremity on the left, sensation intact to light touch and temperature throughout upper and lower extremities, CN II through XII intact Laboratory values and imaging reviewed ECG reviewed with normal sinus rhythm 75-year-old male with recent CVA with history of CAD, CKD stage III, atrial fibrillation on Eliquis, HTN, GERD, RLS, PAD status post angioplasty and stent of popliteal artery, here with acute likely toxic encephalopathy secondary to baclofen in the setting of acute kidney injury. Seems to be improved since admission but remains somewhat lethargic -Discontinue baclofen and hold ropinirole as well Continue with gentle hydration, keep n.p.o. until consistently more alert and able to swallow Repeat brain MRI to assess for recurrent stroke although focal weakness on the left side seems at baseline compared to last admission as per patient and his daughter Consult neurology PG Care Time/CCT Total # of Minutes Spent Total Time Spent with Patient: Total time spent is greater than 50% in coordination of care (as documented) at patient's floor/unit and/or counseling patient: Coding Level of Care Code 27132 Initial Inpt Care Lvl 3 Diagnoses Encephalopathy G93.40 Stroke I63.49 CVA mechanism: embolism Precerebral and cerebral artery: other cerebral artery CKD (chronic kidney disease) stage 3, GFR 30-59 ml/min N18.30 Chronic kidney disease stage 3 subtype: unspecified whether 3a or 3b LUDWIN (acute kidney injury) N17.9 Left-sided weakness R53.1 Atrial fibrillation I48.0 Atrial fibrillation type: paroxysmal Depression F32.9 Depression Type: unspecified Restless leg syndrome G25.81 Hypertriglyceridemia E78.1 DM (diabetes mellitus) E11.9 Diabetes mellitus type: type 2 Diabetes mellitus terminal operations supervisor insulin use: without senior care use Diabetes mellitus complication status: without complication HTN (hypertension) I10 Hypertension type: essential hypertension GERD (gastroesophageal reflux disease) K21.9 Esophagitis presence: esophagitis presence not specified CAD (coronary artery disease) I25.110 Associated angina: with unstable angina Coronary Disease-Associated Artery/Lesion type: [place] artery [place] vs. transplanted heart: [place] heart (1) CKD (chronic kidney disease) stage 3, GFR 30-59 ml/min Chronic kidney disease stage 3 subtype: unspecified whether 3a or 3b Qualified Code(s): N18.30 - Chronic kidney disease, stage 3 unspecified (2) Atrial fibrillation Atrial fibrillation type: paroxysmal Qualified Code(s): I48.0 - Paroxysmal atrial fibrillation (3) Depression Depression Type: unspecified Qualified Code(s): F32.9 - Major depressive disorder, single episode, unspecified (4) Stroke CVA mechanism: embolism Precerebral and cerebral artery: other cerebral artery Qualified Code(s): I63.49 - Cerebral infarction due to embolism of other cerebral artery (5) DM (diabetes mellitus) Diabetes mellitus type: type 2 Diabetes mellitus senior care insulin use: without terminal operations supervisor use Diabetes mellitus complication status: without co mplication Qualified Code(s): E11.9 - Type 2 diabetes mellitus without complications (6) HTN (hypertension) Hypertension type: essential hypertension Qualified Code(s): I10 - Essential (primary) hypertension (7) GERD (gastroesophageal reflux disease) Esophagitis presence: esophagitis presence not specified Qualified Code(s): K21.9 - Gastro-esophageal reflux disease without esophagitis (8) CAD (coronary artery disease) Associated angina: with unstable angina Coronary Disease-Associated Artery/Lesion type: [place] artery [place] vs. transplanted heart: [place] heart Qualified Code(s): I25.110 - Atherosclerotic heart disease of [place] coronary artery with unstable angina pectoris
--- NOTE | 2021-01-27 12:41 | Electrocardiogram Report ---
Test Reason : Blood Pressure : / mmHG Vent. Rate : 087 BPM Atrial Rate : 087 BPM P-R Int : 172 ms QRS Dur : 094 ms QT Int : 408 ms P-R-T Axes : 033 -15 028 degrees QTc Int : 490 ms Normal sinus rhythm Normal ECG When compared with ECG of 16-JAN-2021 23:57, No significant change was found Confirmed by Scar Strauss ([id number]) on 01/27/2021 12:41:21 PM Referred By: REFERRED SELF Confirmed By:Scar Strauss
[2021-01-27] MEDS ORDERED: ASPIRIN 300 MG SUPP PR ONE (12:51)
[2021-01-27 12:56] LABS: Influenza A virus by PCR Negative (Neg); Influenza B virus by PCR Negative (Neg); RSV by PCR Negative (Neg); SARS CoV2 RNA(COVID-19) InHosp NEGATIVE (Negative)
[2021-01-27] MEDS ORDERED: GLUCOSE 40% GEL 15 GM TUBE PO PRN (15:15)
[2021-01-27] MEDS ORDERED: POLYETHYLENE (MIRALAX) 17 GM PACK PO PRN (15:15)
[2021-01-27] MEDS ORDERED: ONDANSETRON INJ 2 MG/ML 2 ML VIAL IV PRN (15:15)
[2021-01-27] MEDS ORDERED: DEXTROSE 50% 50 ML SYRINGE IV PRN (15:15)
[2021-01-27] MEDS ORDERED: CARBOHYDRATES FOR HYPOGLYCEMIA PO PRN (15:15)
[2021-01-27] MEDS ORDERED: GLUCOSE 10 TABS/TUBE PO PRN (15:15)
[2021-01-27] MEDS ORDERED: GLUCAGON FOR INJ 1 MG VIAL SQ PRN (15:15)
[2021-01-27] MEDS ORDERED: PHARMACIST DISCHARGE MED REC CONSULT PRN (15:15)
[2021-01-27] MEDS ORDERED: D5W AND LACTATED RINGERS 1,000 ML IV ONE (15:30)
[2021-01-27] MEDS ORDERED: LORazepam 0.25 MG/0.5 ML VIAL IV PRN (19:25)
[2021-01-27] MEDS ORDERED: rOPINIRole HCL 0.25 MG TABLET PO SCH (21:00)
[2021-01-27] MEDS: METOPROLOL SUCC 25MG EXT REL TAB PO SCH (21:10)
[2021-01-27] MEDS: APIXABAN 5 MG TABLET PO SCH (21:10)
[2021-01-28] MEDS ORDERED: D5W AND LACTATED RINGERS 1,000 ML IV SCH (05:30)
[2021-01-28 06:34] LABS: Basophils # (auto) 0.05 K/uL (0-0.2); Basophils % (auto) 0.7 %; Eosinophils # (auto) 0.22 K/uL (0-0.5); Eosinophils % (auto) 2.9 %; Hemoglobin 15.1 g/dL (14.0-18.0); Immature Granulocytes # (auto) 0.02 K/uL (0.00-0.02); Immature Granulocytes % (auto) 0.3 %; Lymphocytes # (auto) 1.32 K/uL (1.2-3.4); Lymphocytes % (auto) 17.7 %; Mean Corpuscular Hemoglobin 29.4 pg (25-34); Mean Corpuscular Hgb Conc 33.6 g/dL (32-36); Mean Corpuscular Volume 87.5 fL (80-100); Mean Platelet Volume 11.9 fL (7.4-10.4); Monocytes # (auto) 0.65 K/uL (0.11-0.59); Monocytes % (auto) 8.7 %; Neutrophils # (auto) 5.21 K/uL (1.4-6.5); Neutrophils % (auto) 69.7 %; Platelet Count 157 K/uL (130-400); RDW Coefficient of Variation 14.6 % (11.5-14.5); Red Blood Count 5.14 M/uL (4.7-6.1); White Blood Count 7.47 K/uL (4.8-10.8)
[2021-01-28 06:42] LABS: INR 1.1 (0.9-1.1); Prothrombin Time 11.2 Seconds (9.0-12.0)
[2021-01-28 07:21] LABS: BUN Creatinine Ratio 18.7 (10-20); Calcium 9.1 mg/dl (8.5-10.1); Est GFR (African American) 45.4; Est GFR (Non-African American) 39.1; Magnesium 2.3 mg/dl (1.8-2.4)
--- NOTE | 2021-01-28 08:01 | Magnetic Resonance Report ---
MR brain wo con HISTORY: 75 years-old Male CVA vs. TIA acute strokelike symptoms COMPARISON: CT head, CTA head and neck 01/27/2021, brain MRI 01/23/2021 TECHNIQUE: Multiplanar multisequence MRI of the brain was obtained without the use of IV contrast. FINDINGS: Subacute infarct of the smith radiata right frontal lobe measures 1.9 x 1.4 cm on image 15 with pers istent mildly decreased signal on ADC map and increased T2/FLAIR signal. This is unchanged in size fr om the most recent comparison. No new acute or subacute infarct identified. Age-related involutional changes. Extensive white matter T2 hyperintense foci are unchanged suggestive of advanced chronic sylwia rovascular ischemic disease. No acute intracranial hemorrhage, midline shift, abnormal extra axial co llection, hydrocephalus or intracranial mass. Study is mildly motion degraded. Cerebral venous sinuse s and major arterial flow voids are patent. The skull, orbits and soft tissues are unremarkable. IMPRESSION: 1. Unchanged size and appearance of the subacute infarct of the right frontal lobe smith radiata, 1. 9 x 1.4 cm. 2. Age-related involutional changes with chronic microvascular ischemic disease. ACT 112: Negative or not required by law. The above report was generated using voice recognition software. It may contain grammatical, syntax o r spelling errors. Electronically signed by: Antonio Whipple M.D. 01/28/2021 7:59 AM
--- NOTE | 2021-01-28 08:56 | Hospitalist Progress Note ---
Date of Service January 28, 2021 Assessment & Plan (1) Encephalopathy: Acute- likely related to polypharmacy/toxic encephalopathy - Baclofen held as this is likely the offending agent in the setting of LUDWIN - Will need to re-evaluate his leg pain and RLS will use low-dose diazepam and B complex vitamins. B complex vitamin C take a while to work - Hold Ropinirole as well - Neurological exam improving and clearing of drowsiness -Patient's glucose is elevated however he wishes not to be on a diabetic diet he is on sliding scale insulin at this time (2) Stroke: MRI of the brain 01/27/21 IMPRESSION: 1. Unchanged size and appearance of the subacute infarct of the right frontal lobe smith radiata, 1.9 x 1.4 cm. 2. Age-related involutional changes with chronic microvascular ischemic disease. - rectal aspirin until cleared by speech - Hold LIZZIE - Continue Metoprolol for rate and rhythm control - currently NSR (3) CKD (chronic kidney disease) stage 3, GFR 30-59 ml/min: (4) LUDWIN (acute kidney injury): LUDWIN stage II on CKD III resolved - - Hold LIZZIE- D5LR at 80 cc per hour DC IV fluids in the evening of 01/28/2021, as patient is taking p.o. well - avoid further nephrotoxic agents and if needed minimize exposure time (5) Left-sided weakness: Appears at his baseline - after patient mentation improved, he was able to participate better in exam - left leg and left arm still unable to resist past gravity (6) Atrial fibrillation: Currently in NSR - Continue Eliquis- speech therapy to clear swallow screen (7) Depression: This has resolved when he found out he has no further worsening of his stroke (8) Restless leg syndrome: Follow during hospitalization-initiating vitamin B complex and as needed diazepam for severe spasm (9) Hypertriglyceridemia: Statin intolerant- Consider starting Vascepa and/or Repatha with neurology recommendations: - [facility] is [facility]- [facility] through PCP (10) DM (diabetes mellitus): Most recent hemoglobin A1c 6.8% Check glucose every 6 while n.p.o. sliding scale insulin was begun patient refuses diabetic diet (11) HTN (hypertension): Blood pressures are mildly elevated Held home lisinopril for LUDWIN Continue Toprol-XL 25 mg (12) GERD (gastroesophageal reflux disease): Continue PPI (13) CAD (coronary artery disease): History of CABG, Patient with CAD s/p CABG x [place] [facility]MUNIZ to LAD and SVG to RCA and SVG to OM). Patient has seen Cardiology [place] [facility] [place] 10/30/20. no acute issues Continue AK aspirin, metoprolol, intolerant of statins Admission and Anticipated Discharge Date Admission Date: January 27, 2021 Subjective Patient is been his usual self he continues to be complains of restless leg issues and leg cramping which likely led to some of the medications use which led to some of the toxic encephalopathy he had on presentation. To this end we will try low-dose of diazepam as needed and B complex vitamins. Voiding baclofen in the future Review of Systems Review of Systems: Mild distress and fatigue no headache, blurry or double vision no speech or swallowing issues no chest pain, pressure or palpitations no shortness of breath, cough or wheezes no abdominal pain, nausea or vomiting, diarrhea or constipation no dysuria, hematuria or frequency no focal joint pain or swelling no back pain, CVA tenderness or radicular pain no bruising, bleeding or rashes Left hemiparesis and left facial drooping are still present no complaints of anxiety or depression.. Physical Exam Physical Exam: The patient appeared well nourished and normally developed. Vital signs as documented. Head exam is normocephalic atraumatic Neck is without JVD, thyromegaly, or carotid bruits. Lungs are clear to auscultation, no focal loss of breath sounds Cardiac exam, Rhythm is regular.. No murmurs, rubs or gallops. Abdominal exam reveals normal bowel sounds, soft non tender, no masses Extremities are nonedematous and both pedal pulses are present Neurologic exam is alert and oriented, left hemiparesis and left facial drooping with patient has no issues with swallowing and was cleared by speech Skin is without bruises or rashes Psychologically is without concerns for anxiety or depression Results & Data Results & [facility] ([facility]) Vital Signs (Past 12 Hours) Vital Signs Temp Pulse Pulse Resp BP Pulse Ox 01/28/21 07:10 70 01/28/21 06:19 141/94 H 01/28/21 06:11 97.3 F L 76 25 H 180/120 H 97 01/28/21 03:08 97.5 F L 60 18 130/78 97 01/27/21 23:34 62 01/27/21 23:28 98.2 F 60 18 138/80 92 PG Care Time/CCT Total # of Minutes Spent Total Time Spent with Patient: Total time spent is greater than 50% in coordination of care (as documented) at patient's floor/unit and/or counseling patient: Coding Level of Care Code 68112 Subseq Hosp Care Lvl 3 Diagnoses Encephalopathy G93.40 Stroke I63.49 CVA mechanism: embolism Precerebral and cerebral artery: other cerebral artery CKD (chronic kidney disease) stage 3, GFR 30-59 ml/min N18.30 Chronic kidney disease stage 3 subtype: unspecified whether 3a or 3b LUDWIN (acute kidney injury) N17.9 Left-sided weakness R53.1 Atrial fibrillation I48.0 Atrial fibrillation type: paroxysmal Depression F32.9 Depression Type: unspecified Restless leg syndrome G25.81 Hypertriglyceridemia E78.1 DM (diabetes mellitus) E11.9 Diabetes mellitus complication status: without complication Diabetes mellitus jail insulin use: without jail use Diabetes mellitus type: type 2 HTN (hypertension) I10 Hypertension type: essential hypertension GERD (gastroesophageal reflux disease) K21.9 Esophagitis presence: esophagitis presence not specified CAD (coronary artery disease) I25.110 Associated angina: with unstable angina Coronary Disease-Associated Artery/Lesion type: [place] artery [place] vs. 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 transplanted heart: [place] heart Qualified Code(s): I25.110 - Atherosclerotic heart disease of [place] coronary artery with unstable angina pectoris (4) Atrial fibrillation Atrial fibrillation type: paroxysmal Qualified Code(s): I48.0 - Paroxysmal atrial fibrillation (5) Depression Depression Type: unspecified Qualified Code(s): F32.9 - Major depressive disorder, single episode, unspecified (6) GERD (gastroesophageal reflux disease) Esophagitis presence: esophagitis presence not specified Qualified Code(s): K21.9 - Gastro-esophageal reflux disease without esophagitis (7) HTN (hypertension) Hypertension type: essential hypertension Qualified Code(s): I10 - Essential (primary) hypertension (8) Stroke CVA mechanism: embolism Precerebral and cerebral artery: other cerebral artery Qualified Code(s): I63.49 - Cerebral infarction due to embolism of other cerebral artery
[2021-01-28] MEDS ORDERED: ASPIRIN 81 MG ECTAB PO SCH (09:00)
[2021-01-28] MEDS: PANTOprazole 40 MG TAB PO SCH (09:56)
[2021-01-28] MEDS: EZETIMIBE 10 MG TABLET PO SCH (09:56)
[2021-01-28] MEDS: FENOFIBRATE NANOCRYSTALLIZED 48 MG TABLET PO SCH (09:56)
[2021-01-28] MEDS: FERROUS SULFATE 325 MG TAB PO SCH (09:56)
[2021-01-28] MEDS: APIXABAN 5 MG TABLET PO SCH ×2 (09:57→20:34)
--- NOTE | 2021-01-28 09:59 | Neurology Consultation ---
Date of Consultation January 28, 2021 Assessment & Plan (1) Acute CVA (cerebrovascular accident): (2) Left hemiplegia: (3) Salinas's palsy: (4) Cerebrovascular disease: (5) Acute alteration in mental status: this patient had acute right centrum semiovale stroke January 17. He has left hemiplegia secondary to this , but currently no other neurologic deficits including sensory, vision, speech, or mentation. The patient had this stroke despite Eliquis and aspirin. He has had atrial fibrillation in the past but he has been in normal sinus rhythm since January 17. The patient has significant stroke risk factors including hypertension, diabetes, and dyslipidemia. He quit cigarette smoking in the past. More importantly, currently, he has multiple, significant stenoses in the major cerebral vessels bilaterally (middle, anterior, and posterior cerebral arteries). Patient had a history of left Salinas's palsy early this year. He has some left over slight weakness of the forehead and corner of the mouth but does not have synkinesis present. I believe the patient's alteration in mental status has to do with cerebral perfusion. If he gets hypotensive he will have altered mental status easily given his vasculopathy and stenoses. Hypertension could do the same thing with vasospasm. At least currently his mental status is at baseline. Recommendations: 1. discontinue aspirin and initiate clopidogrel 75 mg daily. 2. Continue Eliquis. 3. Increase activity as able and continue speech, physical, and occupational therapy. The patient continues to be a rehab hospital candidate. Unfortunately has not made much improvement with his hemiplegia. 4. consider mild permissive hypertension (mean arterial pressure of 100-105) 5. Consider 2nd opinion at [facility] stroke program to see if there is anything can be done by about his intracranial vascular issues. Overall I spent a total of 120 minutes with this case including review of records, review of MRI filled, direct evaluation the patient at bedside, and discussion of the case with the patient and RN at bedside and Dr. Peters, including differential diagnosis and treatment options. History of Present Illness Reason for Consultation: Patient is a 75-year-old, who I was asked to see at the request of Dr. Hernandez, neurologic consultation regarding previous stroke acute confusion. This patient has a longstanding history of hypertension, dyslipidemia, and type 2 diabetes (for 3-4 years. Addition patient had peripheral arterial disease post left popliteal angioplasty for claudication in April of 2018. In January of 2018 he was having episodes of confusion that were labeled as "TIAs. He had artery been on 81 mg aspirin tablet a day and clopidogrel was added to this. By July of 2018 he was admitted with acute confusion and speech issue. He was given IV tPA but MRI of the brain showed no stroke. He had some hypertension was discharged on aspirin and Plavix. Over time I believe the Plavix was discontinued and he remained on aspirin alone. In August of 2020 the patient was admitted with chest pain and was noted to have coronary artery disease. On September 26, 2020 he had a 3 vessel coronary artery bypass graft at [facility]. During that hospitalization it was complicated by atrial fibrillation and a left Salinas's palsy. MRI did not show a stroke apparently. He was discharged on October 09. On October 10 he was admitted to our hospital for a fall. He was noted to have hypotension and was in normal sinus rhythm. BRADFORD was unremarkable. On October 21 he was noted be in atrial fibrillation and was given amiodarone. I believe he has been in normal sinus rhythm ever since. The patient did quite well following this and was very active in November and early December including being outside cutting the grass. He was on Eliquis and aspirin. On January 17, he was sitting watching TV and reach for the remote. He could not raise the remote and he could not walk. The weakness persisted and he was taken to the hospital. He was noted to have left hemiparesis. CT angiography of the head and neck revealed multiple areas of mild to moderate stenosis in the middle cerebral arteries, anterior cerebral arteries, and posterior cerebral arteries bilaterally. There was a 50% stenosis in the distal right internal carotid artery. He saw Dr. Napoles and MRI of the brain revealed a 1.6 cm right smith radiata acute stroke . He was kept on Eliquis and aspirin. Bradford was unremarkable and hemoglobin A1c was 6.8. By January 22 was concerned that his left side was weaker any was not getting better. There is concern of some left facial droop and a repeat MRI showed no new stroke but they labeled the size of the right smith radiata stroke as 1.9 cm. He had some leg spasms and was given baclofen as needed. He was discharged on January 23 to [facility]. The patient was noted on January 27 to be well at 0400. later in the morning he was found to be "obtunded". He later was aroused and could answer but had some speech difficulties. He arrived to the emergency room 1039 with no fever, pulse of 82 and normal sinus rhythm, respiratory rate of 18, blood pressure 179/82, and O2 saturation 99%. On exam he had a left talib paresis and had some word- finding difficulties. He was following commands. CBC and Chem profile were unremarkable except for glucose of 154 and elevated BUN and creatinine of 41 and 1.97. Urinalysis was unremarkable. CT scan of the head showed 1.6 cm old right centrum semiovale stroke as before. CT angiography of the head and neck was the same as January 17 with no changes. MRI of the brain showed no change compared to the previous study as well and a 1.9 cm right centrum semiovale subacute stroke was noted. This morning the patient has no confusion or speech issues. He denies numbness, tingling, pain, double vision, headaches, tremor, memory issues, or depression. He still has significant weakness of the left arm and leg. Attending Physician: Shailesh Peters MD Allergies Allergy/AdvReac Type Severity Reaction Status Date / Time niacin Allergy Unknown ARTHRALGIAS Verified 01/27/21 13:55 FROM ADVICOR telithromycin Allergy Unknown ARTHRALGIAS Verified 01/27/21 13:55 FROM ADVICOR atorvastatin AdvReac Intermediate Muscle Pain Verified 01/27/21 13:55 lovastatin AdvReac Intermediate ARTHRALGIAS Verified 01/27/21 13:55 FROM ADVICOR Helqzmt-Lyw-Wvw Reductase AdvReac Intermediate Muscle Pain Verified 01/27/21 13:55 Inhibitor STERIODS Allergy Unknown Unknown Uncoded 01/27/21 13:55 Home Medications Medication Instructions Recorded Confirmed Type aspirin 81 mg PO QAM 08/08/18 01/27/21 History multivitamin 1 tab PO QAM 08/08/18 01/27/21 History ezetimibe 10 mg PO QAM 11/11/19 01/27/21 History fenofibrate nanocrystallized 48 mg PO QAM 11/27/20 01/27/21 History Eliquis 5 mg PO BID 01/17/21 01/27/21 History ferrous sulfate 325 mg PO QAM 01/17/21 01/27/21 History metoprolol succinate 25 mg PO QPM 01/17/21 01/27/21 History omeprazole 20 mg PO QAM 01/17/21 01/27/21 History ropinirole 0.5 mg PO QPM 01/17/21 01/27/21 History baclofen 10 mg PO QPM PRN #30 tab 01/23/21 01/27/21 Rx lisinopril 10 mg PO QAM #0 tab 01/23/21 01/27/21 Rx cholecalciferol (vitamin D3) 2,000 unit PO QAM 01/27/21 01/27/21 History [Vitamin D3] docusate sodium 100 mg PO BID 01/27/21 01/27/21 History insulin regular human [Humulin R 1 sliding scale dose SUBCUT 01/27/21 01/27/21 History Regular U-100 Insuln] USEASDIRECTD pantoprazole 40 mg PO QAM 01/27/21 01/27/21 History Patient History Medical History Accidental drug overdose Atelectasis 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 popliteal 05/23/2018 Hx of colonoscopy 2017 S/P CABG x 3 Family History Grandfather Colorectal cancer Mother Diabetes Hypertension Brother Stroke Social History Smoking Status: Former smoker Tobacco Type: Cigarettes Second Hand Exposure: No; Do You Dip or Chew Tobacco: No; Tobacco Cessation Education Requested by Patient: No Hx Alcohol Use: Yes Alcohol type: beer Hx Substance Use: No Preferred Language: Mongolian Communication Ability: Effective Mechanical Systems 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 Required: No Beliefs That Will Affect Care: None marital status: Single Current Living Situation: Alone current occupational status: retired Other Information That Helps Us Care for You: No Feels Safe at Home: Yes Assistive Devices: None Review of Systems Constitutional: + fatigue and + increased appetite; no fever and no weakness Eyes: no diplopia, no eye pain and no worsening vision Ear, Nose, Mouth, Throat: + hearing loss; no ear pain, no tinnitus, no dizziness, no hoarseness and no dysphagia Respiratory: no cough and no dyspnea Cardiovascular: no chest pain, no palpitations and no lightheadedness Gastrointestinal: no abdominal pain, no nausea and no vomiting Genitourinary: no dysuria and no urinary incontinence Musculoskeletal: no back pain, no neck pain, no radicular pain, no joint pain and no myalgia Integumentary: no rash and no lesions Neurologic: + localized weakness; no gait abnormality, no generalized weakness, no tingling, no numbness, no tremor(s), no abnormal movements, no headache(s), no abnormal speech, no confusion and no memory loss Psychiatric: no depression, no irritability, no anxiety, no difficulty concentrating, no confusion and no hallucinations Endocrine: no fatigue and no flushing Hematologic / Lymphatic: no easy bleeding and no easy bruising Allergy / Immunological: no urticaria and no problem reported Exam (Neuro) Physical Exam: The patient is right-handed. The patient is awake, alert, and attentive. Speech is normal without any aphasia or dysarthria. he can name objects, repeat phrases, and has normal spontaneous speech. He can read. Mentation and thought processes are intact, with orientation to person, place and time, and normal fund of knowledge. Attention and concentration are normal. Mood and affect are normal and appropriate. General appearance and grooming are normal. Short and long-term memory seem intact. Pupils are 3 mm bilaterally and reactive to light. Extraocular eye muscles are intact without nystagmus. Visual acuity and visual cardona seem normal grossly to confrontation. There are no deficits to sensation in the face in all 3 distributions of the fifth cranial nerve bilaterally. Corneal reflexes are positive bilaterally. there is slight droop of the corner of the mouth on the left but it moves well with voluntary smile. He has slight weakness of the forehead on the left. There is no synkinesis present. Hearing seems mildly decreased bilaterally. Palate moves well without asymmetry. There is normal sternocleidomastoid and strength bilaterally. trapezius strength is normal in the right and 4/5 on the left. Tongue is midline with good strength bilaterally. Gait Is not tested but stance is poor and he leans to the left. With outstretched arms there is no drift on the right. There are no resting, postural, or action tremors. There is no ataxia with finger to nose testing on the right. There is good facility in the right hand. No other abnormal involuntary movements are noted. Motor strength is 5/5 diffusely in the right upper extremity including deltoids, biceps, triceps, brachioradialis, wrist flexors and extensors, milk powder grinder, and intrinsic hand muscles. Motor strength is 5/5 diffusely right lower extremity, including hip flexors, quadriceps, hamstrings, gastrocnemius, tibialis anterior, tibialis posterior, and Peroneii muscles. motor strength is 0/5 diffusely in the left arm and leg, except for some 1/5 proximally in both limbs. Toe extensors are normal on the right and there is good bulk in the extensor digitorum brevis muscles bilaterally. The limbs have good tone without rigidity or spasticity on the right. there is decreased tone in the left arm and leg. There is no atrophy noted in the muscles. Muscle bulk is normal, there is no tenderness to palpation, no myotonia to percussion, and no fasciculations seen. Sensory examination is intact to touch and pin throughout all 4 limbs diffusely. Reflexes are 2/4 in the biceps, triceps, and quadriceps tendons bilaterally. the left maybe slightly brisker than the right. Brachioradialis and Achilles tendon reflexes are absent bilaterally. There is no clonus bilaterally. Toes are downgoing with plantar stimulation On the right and upgoing with plantar stimulation on the left. Peripheral pulses are present and of normal quality distally in all 4 limbs. There is no peripheral edema noted in the limbs. Results & Data ([facility]) Vital Signs (Past 12 Hours) Vital Signs Temp Pulse Pulse Resp BP Pulse Ox 01/28/21 07:10 70 01/28/21 06:19 141/94 H 01/28/21 06:11 36.3 C L 76 25 H 180/120 H 97 01/28/21 03:08 36.4 C L 60 18 130/78 97 01/27/21 23:34 62 01/27/21 23:28 36.8 C 60 18 138/80 92 PG Care Time/CCT Total # of Minutes Spent Total Time Spent with Patient: Total time spent is greater than 50% in coordination of care (as documented) at patient's floor/unit and/or counseling patient: Coding Level of Care Code 90243 OBS Care - Level 3 Diagnoses Acute CVA (cerebrovascular accident) I63.9 Left hemiplegia G81.94 Salinas's palsy G51.0 Cerebrovascular disease I67.9 Acute alteration in mental status R41.82 Time Spent (min) 120 Comment Add modifiers as needed for the time.
[2021-01-28] MEDS ORDERED: GLUCOSE 40% GEL 15 GM TUBE PO PRN (11:54)
[2021-01-28] MEDS ORDERED: GLUCAGON FOR INJ 1 MG VIAL SQ PRN (11:54)
[2021-01-28] MEDS ORDERED: GLUCOSE 10 TABS/TUBE PO PRN (11:54)
[2021-01-28] MEDS ORDERED: CARBOHYDRATES FOR HYPOGLYCEMIA PO PRN (11:54)
[2021-01-28] MEDS ORDERED: DEXTROSE 50% 50 ML SYRINGE IV PRN (11:54)
[2021-01-28] MEDS: INSULIN ASPART 100 UNITS/ML 3 ML PEN SC SCH ×3 (12:53→20:35)
[2021-01-28] MEDS ORDERED: diazePAM 2 MG TABLET PO PRN (16:24)
[2021-01-28] MEDS ORDERED: CLOPIDOGREL BISULFATE 75 MG TAB PO ONE (16:26)
[2021-01-28] MEDS: VITAMIN B COMPLEX TAB PO SCH (16:44)
[2021-01-28] MEDS: METOPROLOL SUCC 25MG EXT REL TAB PO SCH (20:34)
[2021-01-29] MEDS ORDERED: rOPINIRole HCL 0.25 MG TABLET PO STA (02:23)
[2021-01-29 07:28] LABS: Basophils # (auto) 0.04 K/uL (0-0.2); Basophils % (auto) 0.5 %; Eosinophils # (auto) 0.23 K/uL (0-0.5); Eosinophils % (auto) 2.9 %; Hemoglobin 14.8 g/dL (14.0-18.0); Immature Granulocytes # (auto) 0.02 K/uL (0.00-0.02); Immature Granulocytes % (auto) 0.3 %; Lymphocytes # (auto) 1.16 K/uL (1.2-3.4); Lymphocytes % (auto) 14.6 %; Mean Corpuscular Hemoglobin 30.2 pg (25-34); Mean Corpuscular Hgb Conc 34.4 g/dL (32-36); Mean Corpuscular Volume 87.8 fL (80-100); Mean Platelet Volume 11.9 fL (7.4-10.4); Monocytes # (auto) 0.59 K/uL (0.11-0.59); Monocytes % (auto) 7.4 %; Neutrophils % (auto) 74.3 %; Platelet Count 187 K/uL (130-400); RDW Coefficient of Variation 14.3 % (11.5-14.5); RDW Standard Deviation 46.2 fL (36.4-46.3); White Blood Count 7.94 K/uL (4.8-10.8)
[2021-01-29] MEDS: INSULIN ASPART 100 UNITS/ML 3 ML PEN SC SCH ×4 (07:37→20:37)
[2021-01-29 07:38] LABS: INR 1.1 (0.9-1.1); Prothrombin Time 11.5 Seconds (9.0-12.0)
[2021-01-29] MEDS: CLOPIDOGREL BISULFATE 75 MG TAB PO SCH (07:50)
[2021-01-29] MEDS: APIXABAN 5 MG TABLET PO SCH ×2 (07:50→20:36)
[2021-01-29] MEDS: VITAMIN B COMPLEX TAB PO SCH (07:51)
[2021-01-29] MEDS: PANTOprazole 40 MG TAB PO SCH (07:51)
[2021-01-29] MEDS: FERROUS SULFATE 325 MG TAB PO SCH (07:51)
[2021-01-29] MEDS: FENOFIBRATE NANOCRYSTALLIZED 48 MG TABLET PO SCH (07:51)
[2021-01-29] MEDS: EZETIMIBE 10 MG TABLET PO SCH (07:51)
[2021-01-29 08:03] LABS: BUN Creatinine Ratio 14.4 (10-20); Calcium 9.5 mg/dl (8.5-10.1); Creatinine Clr Calc Pharmacy 36.4 ml/min; Est GFR (African American) 40.6; Est GFR (Non-African American) 35.1; Magnesium 2.1 mg/dl (1.8-2.4); Potassium 4.1 mmol/L (3.5-5.1)
[2021-01-29 08:07] LABS: Ferritin 65.2 ng/ml (8-388)
[2021-01-29 08:13] LABS: Folate (Folic Acid) > 20.00 ng/ml (>5.38); Vitamin B12 688 pg/ml (193-986)
--- NOTE | 2021-01-29 17:08 | Hospitalist Progress Note ---
Date of Service January 29, 2021 Assessment & Plan (1) Encephalopathy: Acute-RESOLVED likely related to polypharmacy/toxic encephalopathy - Baclofen held as this is likely the offending agent in the setting of LUDWIN - Will need to re-evaluate his leg pain and RLS will use low-dose diazepam and B complex vitamins. B complex vitamin C take a while to work - Hold Ropinirole as well - Neurological exam improving and clearing of drowsiness -Patient's glucose is elevated however he wishes not to be on a diabetic diet he is on sliding scale insulin at this time (2) Stroke: MRI of the brain 01/27/21 IMPRESSION: 1. Unchanged size and appearance of the subacute infarct of the right frontal lobe smith radiata, 1.9 x 1.4 cm. 2. Age-related involutional changes with chronic microvascular ischemic disease. - speech cleared swallowing aspirin changed to plavix - restart LIZZIE - Continue Metoprolol for rate and rhythm control - currently NSR (3) CKD (chronic kidney disease) stage 3, GFR 30-59 ml/min: (4) LUDWIN (acute kidney injury): LUDWIN stage II on CKD III resolved - - stop ivf restart lizzie i - avoid further nephrotoxic agents and if needed minimize exposure time (5) Left-sided weakness: Appears at his baseline - after patient mentation improved, he was able to participate better in exam - left leg and left arm still unable to resist past gravity (6) Atrial fibrillation: Currently in NSR - Continue Eliquis- speech therapy to clear swallow screen (7) Depression: This has resolved when he found out he has no further worsening of his stroke (8) Restless leg syndrome: Follow during hospitalization-initiating vitamin B complex and as needed diazepam for severe spasm (9) Hypertriglyceridemia: Statin intolerant- Consider starting Vascepa and/or Repatha with neurology recommendations: - Patient is now at [facility]- continue avenues through PCP (10) DM (diabetes mellitus): Most recent hemoglobin A1c 6.8% sliding scale insulin was begun patient refuses diabetic diet (11) HTN (hypertension): Blood pressures are mildly elevated restart lizzie i Continue Toprol-XL 25 mg (12) GERD (gastroesophageal reflux disease): Continue PPI (13) CAD (coronary artery disease): History of CABG, Patient with CAD s/p CABG x 3V performed at [facility] in August 2020 (MUNIZ to LAD and SVG to RCA and SVG to OM). Patient has seen Cardiology at [facility] in followup on 10/30/20. no acute issues Continue plavix, metoprolol, intolerant of statins Admission and Anticipated Discharge Date Admission Date: January 27, 2021 Subjective Patient is been his usual self he continues to be complains of restless leg issues and leg cramping which likely led to some of the medications use which led to some of the toxic encephalopathy he had on presentation. He did not have luck with diazepam as needed and B complex vitamins. Will restart requip add melatonin and continue aVoiding baclofen in the future Review of Systems Review of Systems: Mild distress and fatigue no headache, blurry or double vision no speech or swallowing issues no chest pain, pressure or palpitations no shortness of breath, cough or wheezes no abdominal pain, nausea or vomiting, diarrhea or constipation no dysuria, hematuria or frequency no focal joint pain or swelling no back pain, CVA tenderness or radicular pain no bruising, bleeding or rashes Left hemiparesis and left facial drooping are still present no complaints of anxiety or depression.. Physical Exam Physical Exam: The patient appeared well nourished and normally developed. Vital signs as documented. Head exam is normocephalic atraumatic Neck is without JVD, thyromegaly, or carotid bruits. Lungs are clear to auscultation, no focal loss of breath sounds Cardiac exam, Rhythm is regular.. No murmurs, rubs or gallops. Abdominal exam reveals normal bowel sounds, soft non tender, no masses Extremities are nonedematous and both pedal pulses are present Neurologic exam is alert and oriented, left hemiparesis and left facial drooping with patient has no issues with swallowing and was cleared by speech Skin is without bruises or rashes Psychologically is without concerns for anxiety or depression Results & Data Results & Data ([facility]) Vital Signs (Past 12 Hours) Vital Signs Temp Pulse Pulse Resp BP BP Pulse Ox 01/29/21 14:24 97.7 F 63 20 158/79 H 95 01/29/21 14:20 102 H 01/29/21 12:16 97.9 F 84 20 151/95 H 97 01/29/21 10:52 108 H 01/29/21 07:22 74 01/29/21 06:30 97.9 F 77 20 136/65 96 PG Care Time/CCT Total # of Minutes Spent Total Time Spent with Patient: Total time spent is greater than 50% in coordination of care (as documented) at patient's floor/unit and/or counseling patient: Coding Level of Care Code 19529 Subseq Hosp Care Lvl 3 Diagnoses Encephalopathy G93.40 Stroke I63.49 CVA mechanism: embolism Precerebral and cerebral artery: other cerebral artery CKD (chronic kidney disease) stage 3, GFR 30-59 ml/min N18.30 Chronic kidney disease stage 3 subtype: unspecified whether 3a or 3b LUDWIN (acute kidney injury) N17.9 Left-sided weakness R53.1 Atrial fibrillation I48.0 Atrial fibrillation type: paroxysmal Depression F32.9 Depression Type: unspecified Restless leg syndrome G25.81 Hypertriglyceridemia E78.1 DM (diabetes mellitus) E11.9 Diabetes mellitus complication status: without complication Diabetes mellitus snf insulin use: without superintendent container terminal use Diabetes mellitus type: type 2 HTN (hypertension) I10 Hypertension type: essential hypertension GERD (gastroesophageal reflux disease) K21.9 Esophagitis presence: esophagitis presence not specified CAD (coronary artery disease) I25.110 Associated angina: with unstable angina Coronary Disease-Associated Artery/Lesion type: [place] artery [place] vs. transplanted heart: [place] heart (1) DM (diabetes mellitus) Diabetes mellitus complication status: without complication Diabetes mellitus superintendent container terminal insulin use: without superintendent container terminal use Diabetes mellitus type: type 2 Qualified Code(s): E11.9 - Type 2 diabetes mellitus without complications (2) CKD (chronic kidney disease) stage 3, GFR 30-59 ml/min Chronic kidney disease stage 3 subtype: unspecified whether 3a or 3b Qualified Code(s): N18.30 - Chronic kidney disease, stage 3 unspecified (3) CAD (coronary artery disease) Associated angina: with unstable angina Coronary Disease-Associated Art essence/Lesion type: [place] artery [place] vs. transplanted heart: [place] heart Qualified Code(s): I25.110 - Atherosclerotic heart disease of [place] coronary artery with unstable angina pectoris (4) Atrial fibrillation Atrial fibrillation type: paroxysmal Qualified Code(s): I48.0 - Paroxysmal atrial fibrillation (5) Depression Depression Type: unspecified Qualified Code(s): F32.9 - Major depressive disorder, single episode, unspecified (6) GERD (gastroesophageal reflux disease) Esophagitis presence: esophagitis presence not specified Qualified Code(s): K21.9 - Gastro-esophageal reflux disease without esophagitis (7) HTN (hypertension) Hypertension type: essential hypertension Qualified Code(s): I10 - Essential (primary) hypertension (8) Stroke CVA mechanism: embolism Precerebral and cerebral artery: other cerebral artery Qualified Code(s): I63.49 - Cerebral infarction due to embolism of other cerebral artery
[2021-01-29] MEDS: METOPROLOL SUCC 25MG EXT REL TAB PO SCH (20:36)
[2021-01-29] MEDS ORDERED: MELATONIN 3 MG TAB PO SCH (21:00)
[2021-01-30 05:55] LABS: Basophils # (auto) 0.04 K/uL (0-0.2); Basophils % (auto) 0.4 %; Eosinophils # (auto) 0.25 K/uL (0-0.5); Eosinophils % (auto) 2.8 %; Hematocrit (blood only) 43.4 % (42-52); Hemoglobin 14.7 g/dL (14.0-18.0); Immature Granulocytes # (auto) 0.02 K/uL (0.00-0.02); Immature Granulocytes % (auto) 0.2 %; Lymphocytes % (auto) 19.1 %; Mean Corpuscular Hemoglobin 29.5 pg (25-34); Mean Corpuscular Hgb Conc 33.9 g/dL (32-36); Mean Corpuscular Volume 87.1 fL (80-100); Mean Platelet Volume 11.3 fL (7.4-10.4); Monocytes # (auto) 0.77 K/uL (0.11-0.59); Monocytes % (auto) 8.6 %; Neutrophils # (auto) 6.14 K/uL (1.4-6.5); Neutrophils % (auto) 68.9 %; Platelet Count 168 K/uL (130-400); RDW Coefficient of Variation 14.1 % (11.5-14.5); Red Blood Count 4.98 M/uL (4.7-6.1); White Blood Count 8.92 K/uL (4.8-10.8)
[2021-01-30 06:07] LABS: INR 1.2 (0.9-1.1); Prothrombin Time 11.7 Seconds (9.0-12.0)
[2021-01-30 06:26] LABS: Potassium 3.9 mmol/L (3.5-5.1)
[2021-01-30 06:27] LABS: BUN Creatinine Ratio 14.8 (10-20); Calcium 9.8 mg/dl (8.5-10.1); Creatinine Clr Calc Pharmacy 37.7 ml/min; Est GFR (African American) 42.3; Est GFR (Non-African American) 36.5; Magnesium 1.9 mg/dl (1.8-2.4)
[2021-01-30] MEDS: INSULIN ASPART 100 UNITS/ML 3 ML PEN SC SCH ×2 (08:02→11:34)
[2021-01-30] MEDS: VITAMIN B COMPLEX TAB PO SCH (08:13)
[2021-01-30] MEDS: PANTOprazole 40 MG TAB PO SCH (08:13)
[2021-01-30] MEDS: EZETIMIBE 10 MG TABLET PO SCH (08:13)
[2021-01-30] MEDS: FERROUS SULFATE 325 MG TAB PO SCH (08:13)
[2021-01-30] MEDS: FENOFIBRATE NANOCRYSTALLIZED 48 MG TABLET PO SCH (08:13)
[2021-01-30] MEDS: CLOPIDOGREL BISULFATE 75 MG TAB PO SCH (08:13)
[2021-01-30] MEDS: APIXABAN 5 MG TABLET PO SCH (08:14)
[2021-01-30] MEDS ORDERED: lisinopril 10 MG TAB PO SCH (09:00)
--- NOTE | 2021-01-30 15:29 | Discharge Summary ---
Date of Service January 30, 2021 Admission HPI Per Admitting Provider 75 YOM recently discharged for acute CVA to [facility]. He was found this morning confused, weak, and out of his bed. His past medical history of CAD with 3V CABG, AFIB on Eliquis (is in NSR) CKD III, GERD, HTN, HLD, hypotension, TIA, RLS, DM II. His most recent CVA right centrum semiovale/smith radiata, old infarct in the left cerebellum, and post CVA mri brain imaging showed slight extension of known right CS/CR infarct. Patient was started on ropinirole and baclofen prior to discharge for his restless legs and spasms of the left side. As above the patient was brought to the emergency room via EMS for alt eration/obtundation and worsening weakness. The patient is accompanied by his daughter. She states that his speech has been getting more slow and interrupted since discharge from the hospital. She noticed it more on Wednesday. On Wednesday the patient was also confused and disoriented on where he was and why he was there. She also reports that he has been so tired that he has been falling asleep while at rehab. The patient was drowsy and falling asleep during my examination. He had a CT of the head and CTA of the neck done in the emergency room which shows no changes from previous week's imaging. Patient will be admitted for medication adjustment, repeat MRI of the brain, Neurology consult, and optimize medical management. Principal Diagnosis toxic encephalopathy recent cva restless leg syndrome Discharge Exam The patient appeared well Vital signs as documented. Lungs are clear to auscultation and appear unlabored Cardiac exam, Rhythm is regular.. No murmurs, rubs or gallops. Abdominal exam reveals normal bowel sounds, soft non tender, no masses Extremities are nonedematous and both pedal pulses are normal. Neurologic exam is alert and oriented, left-sided hemiplegia and left facial drooping Skin is without bruises or rashes Psychologically is without concerns for anxiety or depression. Discharge Data Allergies Allergy/AdvReac Type Severity Reaction Status Date / Time niacin Allergy Unknown ARTHRALGIAS Verified 01/27/21 13:55 FROM ADVICOR telithromycin Allergy Unknown ARTHRALGIAS Verified 01/27/21 13:55 FROM ADVICOR atorvastatin AdvReac Intermediate Muscle Pain Verified 01/27/21 13:55 lovastatin AdvReac Intermediate ARTHRALGIAS Verified 01/27/21 13:55 FROM ADVICOR Cicamgt-Rbf-Gxb Reductase AdvReac Intermediate Muscle Pain Verified 01/27/21 13:55 Inhibitor STERIODS Allergy Unknown Unknown Uncoded 01/27/21 13:55 Consultations 01/27/21 11:30 ED Decision to Admit Stat 01/27/21 15:15 Consult Neurology Routine Ordered Studies 01/27/21 10:33 CT angio head w con Stat CT angio neck with con Stat CT head/brain wo con Stat 01/27/21 12:27 MR brain wo con Routine Hospital Course (1) Encephalopathy: Acute-RESOLVED likely related to polypharmacy/toxic encephalopathy - Baclofen held as this is likely the offending agent in the setting of LUDWIN - Will need to re-evaluate his leg pain and RLS will use low-dose diazepam and B complex vitamins. B complex may take a while to work -Restarted ropinirole without RETREAD OPERATOR changes and with improvement of his restless leg syndrome - Neurological exam resolved returned to baseline -Patient's glucose is elevated however he wishes not to be on a diabetic diet he is on sliding scale insulin at this time (2) Stroke: MRI of the brain 01/27/21 IMPRESSION: 1. Unchanged size and appearance of the subacute infarct of the right frontal lobe smith radiata, 1.9 x 1.4 cm. 2. Age-related involutional changes with chronic microvascular ischemic disease. - speech cleared swallowing aspirin changed to plavix based upon neurology recommendations - restart LIZZIE - Continue Metoprolol for rate and rhythm control - currently NSR (3) CKD (chronic kidney disease) stage 3, GFR 30-59 ml/min: (4) LUDWIN (acute kidney injury): LUDWIN stage II on CKD III resolved - - stop ivf restart lizzie i - avoid further nephrotoxic agents and if needed minimize exposure time (5) Left-sided weakness: Appears at his baseline - after patient mentation improved, he was able to participate better in exam - left leg and left arm still unable to resist past gravity (6) Atrial fibrillation: Currently in NSR - Continue Eliquis- speech therapy to clear swallow screen (7) Depression: This has resolved when he found out he has no further worsening of his stroke (8) Restless leg syndrome: Follow during hospitalization-initiating vitamin B complex (9) Hypertriglyceridemia: Statin intolerant- Consider starting Vascepa and/or Repatha with neurology recommendations: - Patient is now at [facility]- continue avenues through PCP (10) DM (diabetes mellitus): Most recent hemoglobin A1c 6.8% patient refuses diabetic diet (11) HTN (hypertension): Blood pressures are mildly elevated restart lizzie i Continue Toprol-XL 25 mg (12) GERD (gastroesophageal reflux disease): Continue PPI (13) CAD (coronary artery disease): History of CABG, Patient with CAD s/p CABG x [place] [facility]MUNIZ to LAD and SVG to RCA and SVG to OM). Patient [place] Card[place] [facility] [place]. no acute issues Continue plavix, metoprolol, intolerant of statins Total Time Total Time Spent Total Time Spent (In Minutes): It required greater than 30 minutes to prepare this patient for discharge Discharge Plan Discharge Items Patient Disposition: Transfer Inpatient Rehab Fac Reason For Visit: R/O STROKE Discharge Diagnosis: toxic encephalopathy subacute stroke Condition on Discharge: Good Activity: Per Instructions section Activity Comment: PT/OT eval and treat at [facility] Non-emergency contact: Primary Care Provider and Neurologist Call non-emergency contact if: you have any medication questions and your symptoms worsen Follow-up/Referrals: Alejandrina Brooks DO [Primary Care Provider] - Diet: Regular Diet Comment: pt does not want to be on a low carbohydrate diet Addtl Attending Provider Instructions: please be conservative in treating RLS as the pt has untoward medication affects to muscle relaxants pt did do well with melatonin hs and requip along with vitamin b complex to help his RLS Pending Studies at Discharge: No Stand-Alone Forms: My [facility] Skilled Items Patient informed of condition?: Yes DNR: No Discharge Level of Care: Acute rehab Communicable Disease: No Discharge Prognosis: Stable Lines: None Urinary Catheter: No Medications and DC Order Prescriptions: New clopidogrel 75 mg Tablet 75 mg PO QAM Qty: 30 RF: 0 melatonin 3 mg Tablet 3 mg PO HS Qty: 30 RF: 0 vitamin B complex [Vitamins B Complex] Capsule 1 tab PO QAM Qty: 30 RF: 0 Continued multivitamin Tablet 1 tab PO QAM RF: 0 ezetimibe 10 mg tablet 10 mg PO QAM RF: 0 fenofibrate nanocrystallized 48 mg tablet 48 mg PO QAM RF: 0 pantoprazole 40 mg Tablet,Delayed Release (Dr/Ec) 40 mg PO QAM RF: 0 Humulin R Regular U-100 Insuln 100 unit/mL Solution 1 sliding scale dose SUBCUT USEASDIRECTD RF: 0 docusate sodium 100 mg Capsule 100 mg PO BID RF: 0 cholecalciferol (vitamin D3) [Vitamin D3] 50 mcg (2,000 unit) Capsule 2,000 unit PO QAM RF: 0 metoprolol succinate 25 mg tablet extended release 24 hr 25 mg PO QPM RF: 0 ropinirole 0.25 mg tablet 0.5 mg PO QPM RF: 0 ferrous sulfate 325 mg (65 mg iron) Tablet 325 mg PO QAM RF: 0 omeprazole 20 mg capsule,delayed release(DR/EC) 20 mg PO QAM RF: 0 Eliquis 5 mg tablet 5 mg PO BID RF: 0 lisinopril 20 mg tablet 10 mg PO QAM Qty: 0 RF: 0 Discontinued aspirin 81 mg Tablet,Delayed Release (Dr/Ec) 81 mg PO QAM RF: 0 baclofen 10 mg Tablet 10 mg PO QPM PRN (Reason: spasm) Qty: 30 RF: 0 Discharge Orders: Discharge Order (Routine); Ordered 01/30/21 Ordered By: Shailesh Peters Admission Data Admit Date/Time: 01/27/21 12:59 Attending Provider: Shailesh Peters Admit Provider: Geneva Hernandez Primary Care Provider: Alejandrina Brooks Other Providers: Geneva Hernandez ; Macario Sims ; [facility] Coding Level of Care Code D/C Day Management >30 mins Diagnoses Encephalopathy G93.40 Stroke I63.49 CVA mechanism: embolism Precerebral and cerebral artery: other cerebral artery CKD (chronic kidney disease) stage 3, GFR 30-59 ml/min N18.30 Chronic kidney disease stage 3 subtype: unspecified whether 3a or 3b LUDWIN (acute kidney injury) N17.9 Left-sided weakness R53.1 Atrial fibrillation I48.0 Atrial fibrillation type: paroxysmal Depression F32.9 Depression Type: unspecified Restless leg syndrome G25.81 Hypertriglyceridemia E78.1 DM (diabetes mellitus) E11.9 Diabetes mellitus type: type 2 Diabetes mellitus intermission coordinator insulin use: without intermission coordinator use Diabetes mellitus complication status: without complication HTN (hypertension) I10 Hypertension type: essential hypertension GERD (gastroesophageal reflux disease) K21.9 Esophagitis presence: esophagitis presence not specified CAD (coronary artery disease) I25.110 Associated angina: with unstable angina Coronary Disease-Associated Artery/Lesion type: [place] artery [place] vs. transplanted heart: [place] heart
== END 2021-01-30 18:25 ==
LOC: ED 10:39 → 2W 10:39 → SUATTDRO 12:59 → 2W 14:55

== ENCOUNTER 2021-03-16 19:10 | Observation (INO) ==
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
[2021-03-16] MEDS ORDERED: ONDANSETRON INJ 2 MG/ML 2 ML VIAL IV STA (20:13)
[2021-03-16] MEDS ORDERED: SODIUM CHLORIDE 0.9% 1000ML 1,000 ML IV STA (20:13)
[2021-03-16 21:11] LABS: Basophils # (auto) 0.02 K/uL (0-0.2); Basophils % (auto) 0.2 %; Eosinophils # (auto) 0.11 K/uL (0-0.5); Eosinophils % (auto) 1.1 %; Hematocrit (blood only) 40.4 % (42-52); Hemoglobin 13.9 g/dL (14.0-18.0); Immature Granulocytes # (auto) 0.03 K/uL (0.00-0.02); Immature Granulocytes % (auto) 0.3 %; Lymphocytes % (auto) 15.1 %; Mean Corpuscular Hemoglobin 30.5 pg (25-34); Mean Corpuscular Hgb Conc 34.4 g/dL (32-36); Mean Corpuscular Volume 88.8 fL (80-100); Monocytes # (auto) 0.58 K/uL (0.11-0.59); Monocytes % (auto) 5.8 %; Neutrophils # (auto) 7.68 K/uL (1.4-6.5); Neutrophils % (auto) 77.5 %; Platelet Count 206 K/uL (130-400); RDW Coefficient of Variation 14.2 % (11.5-14.5); RDW Standard Deviation 46.3 fL (36.4-46.3); Red Blood Count 4.55 M/uL (4.7-6.1); White Blood Count 9.92 K/uL (4.8-10.8)
[2021-03-16 21:18] LABS: Alanine Aminotransferase 27 U/L (12-78); Albumin Level 3.5 gm/dl (3.4-5.0); Aspartate Aminotransferase 21 U/L (15-37); BUN Creatinine Ratio 18.7 (10-20); Blood Urea Nitrogen 36 mg/dl (7-18); Calcium 9.6 mg/dl (8.5-10.1); Carbon Dioxide 22 mmol/L (21-32); Chloride 110 mmol/L (98-107); Creatinine Clr Calc Pharmacy 31.4 ml/min; Est GFR (African American) 39.1 ml/min; Est GFR (Non-African American) 33.7 ml/min; Glucose 177 mg/dl (70-99); Potassium 3.6 mmol/L (3.5-5.1); Sodium 141 mmol/L (136-145)
[2021-03-16 21:28] LABS: Albumin Globulin Ratio 1.1 (0.9-2); Alkaline Phosphatase 70 U/L (45-117); Bilirubin,Total 0.3 mg/dl (0.2-1); Globulin 3.3 gm/dl (2.5-4.0); Total Protein 6.8 gm/dl (6.4-8.2); Troponin I < 0.015 ng/ml (0-0.045)
[2021-03-16 22:11] LABS: Appearance Urine Clear (Clear); Bilirubin Urine Negative (Negative); Blood Urine Negative (Negative); Color Urine Yellow; Glucose Urine UA Negative (Negative); Ketones Urine Negative (Negative); Leukocyte Esterase Urine Negative (Negative); Nitrite Urine Negative (Negative); Protein Urine Negative (Negative); Specific Gravity Urine 1.021 (1.000-1.030); Urobilinogen Urine Negative (Negative)
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
[2021-03-17] MEDS ORDERED: MoRPHine SULFATE 2 MG/ML CARP IV STA (01:03)
[2021-03-17] MEDS ORDERED: ACETAMINOPHEN 1,000 MG/100 ML VIAL IV STA (01:50)
[2021-03-17] MEDS ORDERED: ONDANSETRON INJ 2 MG/ML 2 ML VIAL IV PRN (03:24)
[2021-03-17] MEDS ORDERED: MAGNESIUM HYDROXIDE SUSP 30 ML UDC PO PRN (03:24)
[2021-03-17] MEDS ORDERED: ACETAMINOPHEN 325 MG TAB PO PRN (03:24)
[2021-03-17] MEDS ORDERED: ACETAMINOPHEN 325 MG TAB PO STA (03:24)
[2021-03-17] MEDS ORDERED: ACETAMINOPHEN 325 MG TAB ONE (03:37)
[2021-03-17] MEDS ORDERED: CYCLOBENZAPRINE HCL 10 MG TAB PO STA (04:51)
[2021-03-17] MEDS: MELATONIN 3 MG TAB PO PRN (04:58)
[2021-03-17] MEDS: APIXABAN 5 MG TABLET PO SCH ×2 (04:58→19:56)
--- NOTE | 2021-03-17 07:18 | CT Scan Report ---
CT head/brain wo con CLINICAL HISTORY: 75 years-old Male with fall, anticoagulated. Acute head injury status post fall TECHNIQUE: Multiple axial CT images of the head were obtained without contrast. A dose lowering tech nique was utilized adhering to the principles of ALARA. CT DOSE: 614.27 mGy.cm COMPARISON: 02/17/2021 FINDINGS: No acute intracranial hemorrhage, midline shift, intracranial mass, hydrocephalus, territorial ischem ia or abnormal extra-axial collection. Age-related involutional changes. White matter hypodensities s uggestive of chronic microvascular ischemic disease. Chronic lacunar infarct of the periventricular w mike matter of the right frontal lobe on image 20. Cerebral vascular calcifications. The calvarium is intact. The paranasal sinuses, mastoid air cells, and middle ear cavities are clear . IMPRESSION: No acute intracranial abnormality or calvarial fracture. ACT 112: Negative or not required by law. The above report was generated using voice recognition software. It may contain grammatical, syntax o r spelling errors. Electronically signed by: Edmar Whipple M.D. 03/17/2021 7:16 AM
[2021-03-17 08:04] LABS: Basophils # (auto) 0.02 K/uL (0-0.2); Basophils % (auto) 0.2 %; Hematocrit (blood only) 39.3 % (42-52); Hemoglobin 13.3 g/dL (14.0-18.0); Immature Granulocytes # (auto) 0.04 K/uL (0.00-0.02); Immature Granulocytes % (auto) 0.4 %; Lymphocytes # (auto) 1.94 K/uL (1.2-3.4); Lymphocytes % (auto) 20.2 %; Mean Corpuscular Hemoglobin 29.9 pg (25-34); Mean Corpuscular Hgb Conc 33.8 g/dL (32-36); Mean Corpuscular Volume 88.3 fL (80-100); Monocytes # (auto) 0.79 K/uL (0.11-0.59); Monocytes % (auto) 8.2 %; Neutrophils # (auto) 6.71 K/uL (1.4-6.5); Platelet Count 175 K/uL (130-400); RDW Coefficient of Variation 14.4 % (11.5-14.5); RDW Standard Deviation 46.8 fL (36.4-46.3); Red Blood Count 4.45 M/uL (4.7-6.1)
--- NOTE | 2021-03-17 08:15 | CT Scan Report ---
CT chest diagnostic wo con CLINICAL HISTORY: Left-sided chest pain status post trauma COMPARISON STUDY: 10/22/2020 CT DOSE: 428.66 mGy.cm TECHNIQUE: CT of the thorax was performed from the thoracic inlet to the lung bases. Images are revi ewed in the axial, sagittal, and coronal planes. IV contrast was not administered for this examinatio n. A dose lowering technique was utilized adhering to the principles of ALARA. FINDINGS: Thyroid: Imaged portions of the thyroid gland are normal in appearance. Thoracic aorta: There is mild dilatation of the ascending thoracic aorta which measures 37 mm. Heart: There are postsurgical changes of a midline sternotomy. Coronary calcifications are present. Lungs and pleural spaces: There are no pleural effusions. There is no pneumothorax. There is an area of left lower lobe atelectasis/consolidation with air bronchograms. This was present on the prior amauri dy. The left pleural effusion has resolved. There is mild elevation left hemidiaphragm. There is a le ft upper lobe calcified granuloma. There is a stable 4 mm right upper lobe pulmonary nodule as visual ized on image #122 sequence 4 Mediastinum: There is no mediastinal lymphadenopathy. Aaliyah: There is no evidence of pathologic hilar adenopathy given the limitations of a noncontrast stud y Axilla: There is no evidence of pathologic axillary lymphadenopathy. Upper abdomen: Partially visualized upper abdominal viscera is within normal limits. Skeletal structures: There is a nondisplaced fracture the left sixth rib laterally IMPRESSION: 1. Stable 4 mm right upper lobe pulmonary nodule 2. Interval resolution of the previously identified left pleural effusion 3. Persistent left lower lobe atelectasis/consolidation 4. Nondisplaced left sixth rib fracture laterally. 5. No pneumothorax ACT 112: Negative or not required by law. Electronically signed by: Gordo Green M.D. 03/17/2021 8:13 AM
[2021-03-17 08:35] LABS: Calcium 8.9 mg/dl (8.5-10.1); Creatinine Clr Calc Pharmacy 34.3 ml/min; Est GFR (African American) 43.5 ml/min; Est GFR (Non-African American) 37.5 ml/min; Potassium 3.9 mmol/L (3.5-5.1)
--- NOTE | 2021-03-17 08:36 | XRay Report ---
XR chest 1V portable CLINICAL HISTORY: fall COMPARISON STUDY: February 17, 2021 FINDINGS: No pneumothorax. No pleural effusion. Redemonstration of linear densities at the left lower lung associated with elevation of the left talib diaphragm which could represent atelectasis or scarring. Stable calcified opacity at the left upper lung region. Cardiomediastinal silhouette is within normal limits in size. No significant pulmonary vascular congestion.. Aorta is calcified. Surgical aleyda are again seen at the cardiomediastinal region. Osseous structures: Degenerative changes of the spine. IMPRESSION: 1. Atelectasis/scarring at the left base. Stable elevation of the left hemidiaphragm represents volu me loss. ACT 112: Negative or not required by law. The above report was generated using voice recognition software. It may contain grammatical, syntax o r spelling errors. Electronically signed by: Shilpa Knight DO 03/17/2021 8:35 AM
--- NOTE | 2021-03-17 08:42 | XRay Report ---
XR finger(s) LT min 2V CLINICAL HISTORY: L thumb pain, fall COMPARISON: None. DISCUSSION: No acute fracture or dislocation seen. Severe degenerative changes at the first carpometacarpal joint is seen with subchondral sclerosis, joint space narrowing and periarticular ossified fragments. Also degenerative changes of the interphalangeal joints are noted. Soft tissue edema is seen. IMPRESSION: As above. ACT 112: Negative or not required by law. The above report was generated using voice recognition software. It may contain grammatical, syntax o r spelling errors. Electronically signed by: Shilpa Knight DO 03/17/2021 8:40 AM
[2021-03-17] MEDS: EZETIMIBE 10 MG TABLET PO SCH (08:56)
[2021-03-17] MEDS: CLOPIDOGREL BISULFATE 75 MG TAB PO SCH (08:56)
[2021-03-17] MEDS: CHOLECALCIFEROL 1,000 UNITS 25 MCG TAB PO SCH (08:56)
[2021-03-17] MEDS: FERROUS SULFATE 325 MG TAB PO SCH (08:57)
[2021-03-17] MEDS: LIDOCAINE 5% 1 PATCH TD SCH (08:57)
[2021-03-17] MEDS: FENOFIBRATE NANOCRYSTALLIZED 48 MG TABLET PO SCH (08:57)
[2021-03-17] MEDS: lisinopril 10 MG TAB PO SCH (08:57)
[2021-03-17] MEDS: POLYETHYLENE (MIRALAX) 17 GM PACK PO SCH (08:57)
[2021-03-17] MEDS: PANTOprazole 40 MG TAB PO SCH (08:57)
[2021-03-17] MEDS ORDERED: NON-FORMULARY MEDICATION (Omeprazole 20 mg capsule,delayed release(DR/EC)) PO SCH (09:00)
[2021-03-17] MEDS: MoRPHine SULFATE 2 MG/ML CARP IV PRN ×2 (09:07→19:51)
[2021-03-17] MEDS: DOCUSATE SODIUM/SENNA 50/8.6MG TAB PO SCH (13:24)
--- NOTE | 2021-03-17 14:14 | Electrocardiogram Report ---
Test Reason : Blood Pressure : / mmHG Vent. Rate : 122 BPM Atrial Rate : 122 BPM P-R Int : 154 ms QRS Dur : 092 ms QT Int : 320 ms P-R-T Axes : 043 024 050 degrees QTc Int : 456 ms Sinus tachycardia Otherwise normal ECG When compared with ECG of 17-FEB-2021 15:42, No significant change was found Confirmed by Horacio Penaloza ([id number]) on 03/17/2021 2:13:45 PM Referred By: REFERRED SELF Confirmed By:Horacio Penaloza
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
--- NOTE | 2021-03-17 18:50 | Billing Data ---
Date of Service March 17, 2021 Coding Level of Care Code 48229 Subseq Hosp Care Lvl 1
[2021-03-17] MEDS: METOPROLOL SUCC 25MG EXT REL TAB PO SCH (19:56)
[2021-03-17] MEDS: rOPINIRole HCL 0.25 MG TABLET PO SCH (19:56)
[2021-03-17] MEDS: ACETAMINOPHEN 325 MG TAB PO SCH (20:22)
[2021-03-18] MEDS: MoRPHine SULFATE 2 MG/ML CARP IV PRN (04:51)
--- NOTE | 2021-03-18 05:55 | Billing Data ---
Date of Service March 18, 2021 Coding Level of Care Code 77376 OBS Care - Level 3
[2021-03-18] MEDS: LIDOCAINE 5% 1 PATCH TD SCH (08:03)
[2021-03-18] MEDS: CLOPIDOGREL BISULFATE 75 MG TAB PO SCH (08:03)
[2021-03-18] MEDS: FENOFIBRATE NANOCRYSTALLIZED 48 MG TABLET PO SCH (08:04)
[2021-03-18] MEDS: APIXABAN 5 MG TABLET PO SCH ×2 (08:04→20:45)
[2021-03-18] MEDS: CHOLECALCIFEROL 1,000 UNITS 25 MCG TAB PO SCH (08:04)
[2021-03-18] MEDS: FERROUS SULFATE 325 MG TAB PO SCH (08:04)
[2021-03-18] MEDS: EZETIMIBE 10 MG TABLET PO SCH (08:05)
[2021-03-18] MEDS: lisinopril 10 MG TAB PO SCH (08:05)
[2021-03-18] MEDS: PANTOprazole 40 MG TAB PO SCH (08:05)
[2021-03-18] MEDS: POLYETHYLENE (MIRALAX) 17 GM PACK PO SCH (08:06)
[2021-03-18] MEDS: ACETAMINOPHEN 325 MG TAB PO SCH ×3 (08:07→20:47)
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
[2021-03-18] MEDS: DOCUSATE SODIUM/SENNA 50/8.6MG TAB PO SCH (14:23)
--- NOTE | 2021-03-18 17:38 | Billing Data ---
Date of Service March 18, 2021 Coding Level of Care Code 39802 Subseq Hosp Care Lvl 2
[2021-03-18] MEDS: METOPROLOL SUCC 25MG EXT REL TAB PO SCH (20:45)
[2021-03-18] MEDS: rOPINIRole HCL 0.25 MG TABLET PO SCH (20:45)
[2021-03-18] MEDS: MELATONIN 3 MG TAB PO PRN (20:47)
[2021-03-19] MEDS: MoRPHine SULFATE 2 MG/ML CARP IV PRN ×2 (03:42→13:50)
[2021-03-19] MEDS: APIXABAN 5 MG TABLET PO SCH (08:47)
[2021-03-19] MEDS: CHOLECALCIFEROL 1,000 UNITS 25 MCG TAB PO SCH (08:47)
[2021-03-19] MEDS: CLOPIDOGREL BISULFATE 75 MG TAB PO SCH (08:47)
[2021-03-19] MEDS: POLYETHYLENE (MIRALAX) 17 GM PACK PO SCH (08:49)
[2021-03-19] MEDS: lisinopril 10 MG TAB PO SCH (08:49)
[2021-03-19] MEDS: LIDOCAINE 5% 1 PATCH TD SCH (08:49)
[2021-03-19] MEDS: EZETIMIBE 10 MG TABLET PO SCH (08:50)
[2021-03-19] MEDS: FENOFIBRATE NANOCRYSTALLIZED 48 MG TABLET PO SCH (08:50)
[2021-03-19] MEDS: FERROUS SULFATE 325 MG TAB PO SCH (08:50)
[2021-03-19] MEDS: PANTOprazole 40 MG TAB PO SCH (08:50)
[2021-03-19] MEDS: ACETAMINOPHEN 325 MG TAB PO SCH ×2 (08:54→13:48)
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
[2021-03-19] MEDS: DOCUSATE SODIUM/SENNA 50/8.6MG TAB PO SCH (11:37)
[2021-03-19 13:10] VITALS: BP 112/70; PULSE 68; TEMP 98.4; O2SAT 97
--- NOTE | 2021-03-19 18:26 | Billing Data ---
Date of Service March 19, 2021 Coding Level of Care Code D/C Day Management <30 mins
== END 2021-03-19 14:20 | disposition home or self-care (01) ==
LOC: ED 19:10 → 2N 19:10 → SUATTDRO 22:56 → 2N 03-17 02:57

== ENCOUNTER 2021-07-03 22:31 | Inpatient (IN) ==
[2021-07-03] MEDS ORDERED: SODIUM CHLORIDE 0.9% 1000ML 1,000 ML IV SCH (23:30)
--- NOTE | 2021-07-03 23:30 | Emergency Department Note ---
Impression & Plan Generalized weakness, Ambulatory dysfunction, Diarrhea ED Provider Note Name: CAIN NAZARIO Age: 75 Sex: M Arrives Via: Walk-In Informant: Patient, Daughter ED Provider: Braden Cowan MD Chief Complaint: weakness Impression: As Per Impressions Above Medical Decision Makin yr old male who I had just evaluated a few hours earlier in ED for weakness. Patient with large left sided stroke 6 months ago and since has been in rehab/snf until today when he got home. Too weak to get around at home and came in to ED. Has had persistent diarrhea for the last 2 weeks without clear etiology (did have positive Cdiff but on pcr was negative). Initially had felt better with IV fluids and after discussion he was to attempt trying to see how he did back at home but this did not work out. I re-evaluated patient on return and other than tired he is not septic appearing nor evidence of PE, acs, dissection, etc. He is just too weak to be at home. At this point there is no way to place back in rehab given the hour of the night and thus hospitalist co nsulted for further management & evaluation. Prior Medical Record and Triage/Nursing Notes reviewed by Me Additional history obtained from chart Differentials:Infection, dehydration, metabolic abnormality, hypo/hyperglycemia, electrolyte disturbance, anemia, hypoxia, cardiac sources, intracerebral event, toxicologic, neurologic, as well as other pathologies. Vital Signs: reviewed and remarkable for no significant abnormalities Interventions: See Below Labs:Reviewed and remarkable for no significant abnormalities Imaging:See Below Consults:Dr Rahat FITZGERALD Hospitalist Plan: Disposition:Hospitalization. Condition: Good History of Present Illness:75 yr old male arrives for evaluation of weakness. Patient with worsening weakness over last few weeks which he attributes to dehydration from diarrhea in setting of severe limitations secondary to left sided cva 6 months ago. He was seen earlier in the day, given IV fluids and had been feeling much improved, however on getting home this evening, too weak to get up his stairs. He denies any specific pain, headache, nor other acute symptoms. No falls nor head injuries and denies headache. No medications Prior to arrival other than iv fluids. Exertion makes worse, rest makes better. ROS: See above HPI for pertinent positives & negatives. A total of 10 systems reviewed and were otherwise negative. Past Medical History:See Below Past Surgical History:See Below Family History:See Below Social History:See Below Home Medications:See Below Allergies:See Below Vitals:Blood Pressure: 118/71, Pulse 79, RR 16, T 37.1C, O2 98% on RA Physical Exam: GENERAL: Patient is tired appearing and in minimal distress. EYES: No scleral icterus, unremarkable pupils. ENT: Mucous membranes moist, no nasal congestion. NECK: No masses appreciated, nomeningismus, trachea is midline. RESPIRATORY: No dyspnea. Clear to auscultation and equal bilaterally. No wheeze, no rhonchi. CARDIOVASCULAR: Regular rate and rhythm.No murmurs, rubs, gallops appreciated. GASTROINTESTINAL: Abdomen soft, non-tender, no peritonitis.Bowel sounds positive.No masses appreciated. BACK: No midline tenderness, no CVA tenderness EXTREMITIES: Normal motion all extremities, no cyanosis, no edema. Left leg in stirrup NEUROLOGIC: Left arm, leg and facial weakness, some movement left leg and left upper arm. Otherwise alert and oriented SKIN: No rash, no jaundice, no diaphoresis. 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 popliteal 05/23/2018 Hx of colonoscopy 2017 S/P CABG x 3 Family History Diabetes Mother Colorectal cancer Grandfather Hypertension Mother Stroke Brother Social History Smoking Status: Former smoker Tobacco Type: Cigarettes Smoking End Date: QUIT 8 YEARS AGO; Second Hand Exposure: No; Tobacco Cessation Education Requested by Patient: No Hx Alcohol Use: No Hx Substance Use: No Preferred Language: Nepali Communication Ability: Effective [employer] Direction Specialist Required: No Beliefs That Will Affect Care: None marital status: Single Current Living Situation: Alone Current Living Situation Comment: JUST DISCHARGED FROM [facility] TO HOME ALONE current occupational status: retired Other Information That Helps Us Care for You: No Feels Safe at Home: Yes Safety Concerns: Feels Safe At This Time Assistive Devices: Walker Assistive Devices Comment: HEARING AIDS NOT AT HOSPITAL Allergies Allergies Allergy/AdvReac Type Severity Reaction Status Date / Time Corticosteroids Allergy Unknown Unknown Verified 07/04/21 00:05 (Glucocorticoids) niacin Allergy Unknown ARTHRALGIAS Verified 07/04/21 00:05 FROM ADVICOR telithromycin Allergy Unknown ARTHRALGIAS Verified 07/04/21 00:05 FROM ADVICOR atorvastatin AdvReac Intermediate Muscle Pain Verified 07/04/21 00:05 lovastatin AdvReac Intermediate ARTHRALGIAS Verified 07/04/21 00:05 FROM ADVICOR [id number]-[id number]-Vac Reductase AdvReac Intermediate Muscle Pain Verified 07/04/21 00:05 Inhibitor Home Meds Home Medications Medication Instructions Recorded Confirmed ezetimibe 10 mg tablet 10 mg PO QAM 11/11/19 07/04/21 fenofibrate nanocrystallized 48 mg 48 mg PO QAM 11/27/20 07/04/21 tablet apixaban 5 mg tablet (Eliquis) 5 mg PO BID 01/17/21 07/04/21 ferrous sulfate 325 mg (65 mg 325 mg PO AMPM 01/17/21 07/04/21 iron) tablet metoprolol succinate 25 mg 25 mg PO HS 01/17/21 07/04/21 tablet,extended release 24 hr cholecalciferol (vitamin D3) 50 2,000 unit PO QAM 01/27/21 07/04/21 mcg (2,000 unit) capsule (Vitamin D3) docusate sodium 100 mg capsule 100 mg PO TID 01/27/21 07/04/21 ropinirole 0.5 mg tablet 0.5 mg PO HS 02/17/21 07/04/21 aspirin 81 mg tablet,delayed 81 mg PO DAILY 03/16/21 07/04/21 release (Aspirin Low Dose) multivitamin with minerals 1 tab PO DAILY 03/16/21 07/04/21 omeprazole 20 mg capsule,delayed 20 mg PO BID 03/16/21 07/04/21 release fluoxetine 40 mg capsule 40 mg PO DAILY 07/04/21 07/04/21 lisinopril 10 mg tablet 10 mg PO DAILY 07/04/21 07/04/21 Previous Rx's Medication Instructions Recorded clopidogrel 75 mg tablet 75 mg PO QAM #30 tab 01/29/21 vitamin B complex (Vitamins B 1 tab PO QAM #30 cap 01/30/21 Complex) Results & Data (ED) Vital Signs Vital Signs - 24 hr 07/03/21 22:33 07/04/21 02:00 07/04/21 03:26 Temperature 36.0 C L 36.9 C Temperature Source Temporal Artery Scan Oral Pulse Rate 85 Pulse Rate [Right Finger] 74 87 Respiratory Rate 20 20 Respiratory Effort / Characteristics Non-Labored Spontaneous Non-Labored Spontaneous Non-Labored Spontaneous SOB on Exertion Respiratory Depth Normal Normal Normal Respiratory Pattern Regular Blood Pressure 134/68 Blood Pressure [Right Arm] 153/75 H 176/95 H Blood Pressure Mean 90 Blood Pressure Mean [Right Arm] 101 122 Blood Pressure Position [Right Arm] Lying Lying Pulse Oximetry 99 99 98 Oxygen Delivery Method Room Air Room Air Room Air Sepsis Recent Fever Within 48 Hours No Sepsis New/Unexplained Change in Mental Status N/A Sepsis Action Taken by Nursing No Action Required 07/04/21 07:36 Temperature 36.4 C L Temperature Source Oral Pulse Rate Pulse Rate [Right Finger] 95 H Respiratory Rate 16 Respiratory Effort / Characteristics Respiratory Depth Normal Respiratory Pattern Blood Pressure Blood Pressure [Right Arm] 134/83 Blood Pressure Mean Blood Pressure Mean [Right Arm] 100 Blood Pressure Position [Right Arm] Lying Pulse Oximetry 98 Oxygen Delivery Method Room Air Sepsis Recent Fever Within 48 Hours Sepsis New/Unexplained Change in Mental Status Sepsis Action Taken by Nursing Laboratory Data Result diagrams: 07/03/21 23:50 07/03/21 23:50 Lab Results 07/03/21 07/03/21 07/04/21 Range/Units 23:50 23:50 05:32 WBC 11.37 H (4.8-10.8) K/uL RBC 4.56 L (4.7-6.1) M/uL Hgb 14.3 (14.0-18.0) g/dL Hct 41.4 L (42-52) % MCV 90.8 (80-100) fL MCH 31.4 (25-34) pg MCHC 34.5 (32-36) g/dL RDW Std Deviation 42.8 (36.4-46.3) fL RDW Coeff of Birce 13.0 (11.5-14.5) % Plt Count 175 (130-400) K/uL MPV 11.9 H (7.4-10.4) fL Immature Gran % (Auto) 0.4 % Neut % (Auto) 77.1 % Lymph % (Auto) 12.8 % [place] % (Auto) 9.1 % Eos % (Auto) 0.4 % Baso % (Auto) 0.2 % Neut # (Auto) 8.77 H (1.4-6.5) K/uL Lymph # (Auto) 1.45 (1.2-3.4) K/uL [place] # (Auto) 1.03 H (0.11-0.59) K/uL Eos # (Auto) 0.05 (0-0.5) K/uL Baso # (Auto) 0.02 (0-0.2) K/uL Immature Gran # (Auto) 0.05 H (0.00-0.02) K/uL Sodium 137 (136-145) mmol/L Potassium 4.0 (3.5-5.1) mmol/L Chloride 110 H (98-107) mmol/L Carbon Dioxide 21 (21-32) mmol/L Anion Gap 6.0 (3-11) BUN 36 H (7-18) mg/dl Creatinine 1.52 H (0.6-1.4) mg/dl Est Cr Clr Drug Dosing Not Reportable Est GFR ( Amer) 51.2 ml/min Est GFR (Non-Af Amer) 44.2 ml/min BUN/Creatinine Ratio 23.6 H (10-20) Glucose 121 H (70-99) mg/dl POC Glucose (70-99) mg/dl Calcium 9.1 (8.5-10.1) mg/dl Phosphorus 3.0 (2.5-4.9) mg/dl Total Creatine Kinase 105 (39-308) U/L Vitamin B12 389 (193-986) pg/ml TSH 0.992 (0.300-4.500) uIu/ml Stool Occult Bld Scrn (Negative) Stl C. diff Tox B Gene (Neg) Stl C.difficile Tox A&B (Negative) Hepatitis C Ab Screen (Neg) 07/04/21 07/04/21 07/04/21 Range/Units 05:32 05:54 07:54 WBC (4.8-10.8) K/uL RBC (4.7-6.1) M/uL Hgb (14.0-18.0) g/dL Hct (42-52) % MCV (80-100) fL MCH (25-34) pg MCHC (32-36) g/dL RDW Std Deviation (36.4-46.3) fL RDW Coeff of Brice (11.5-14.5) % Plt Count (130-400) K/uL MPV (7.4-10.4) fL Immature Gran % (Auto) % Neut % (Auto) % Lymph % (Auto) % [place] % (Auto) % Eos % (Auto) % Baso % (Auto) % Neut # (Auto) (1.4-6.5) K/uL Lymph # (Auto) (1.2-3.4) K/uL [place] # (Auto) (0.11-0.59) K/uL Eos # (Auto) (0-0.5) K/uL Baso # (Auto) (0-0.2) K/uL Immature Gran # (Auto) (0.00-0.02) K/uL Sodium (136-145) mmol/L Potassium (3.5-5.1) mmol/L Chloride (98-107) mmol/L Carbon Dioxide (21-32) mmol/L Anion Gap (3-11) BUN (7-18) mg/dl Creatinine (0.6-1.4) mg/dl Est Cr Clr Drug Dosing Est GFR ( Amer) ml/min Est GFR (Non-Af Amer) ml/min BUN/Creatinine Ratio (10-20) Glucose (70-99) mg/dl POC Glucose 103 H 95 (70-99) mg/dl Calcium (8.5-10.1) mg/dl Phosphorus (2.5-4.9) mg/dl Total Creatine Kinase (39-308) U/L Vitamin B12 (193-986) pg/ml TSH (0.300-4.500) uIu/ml Stool Occult Bld Scrn (Negative) Stl C. diff Tox B Gene (Neg) Stl C.difficile Tox A&B (Negative) Hepatitis C Ab Screen Neg (Neg) 07/04/21 07/04/21 07/04/21 Range/Units 11:40 11:40 12:09 WBC (4.8-10.8) K/uL RBC (4.7-6.1) M/uL Hgb (14.0-18.0) g/dL Hct (42-52) % MCV (80-100) fL MCH (25-34) pg MCHC (32-36) g/dL RDW Std Deviation (36.4-46.3) fL RDW Coeff of Brice (11.5-14.5) % Plt Count (130-400) K/uL MPV (7.4-10.4) fL Immature Gran % (Auto) % Neut % (Auto) % Lymph % (Auto) % [place] % (Auto) % Eos % (Auto) % Baso % (Auto) % Neut # (Auto) (1.4-6.5) K/uL Lymph # (Auto) (1.2-3.4) K/uL [place] # (Auto) (0.11-0.59) K/uL Eos # (Auto) (0-0.5) K/uL Baso # (Auto) (0-0.2) K/uL Immature Gran # (Auto) (0.00-0.02) K/uL Sodium (136-145) mmol/L Potassium (3.5-5.1) mmol/L Chloride (98-107) mmol/L Carbon Dioxide (21-32) mmol/L Anion Gap (3-11) BUN (7-18) mg/dl Creatinine (0.6-1.4) mg/dl Est Cr Clr Drug Dosing Est GFR ( Amer) ml/min Est GFR (Non-Af Amer) ml/min BUN/Creatinine Ratio (10-20) Glucose (70-99) mg/dl POC Glucose 105 H (70-99) mg/dl Calcium (8.5-10.1) mg/dl Phosphorus (2.5-4.9) mg/dl Total Creatine Kinase (39-308) U/L Vitamin B12 (193-986) pg/ml TSH (0.300-4.500) uIu/ml Stool Occult Bld Scrn Negative (Negative) Stl C. diff Tox B Gene Positive Cdiff Gene H (Neg) Stl C.difficile Tox A&B Negative Cdiff Toxin (Negative) Hepatitis C Ab Screen (Neg) Administered Medications Apixaban (Apixaban 5 Mg Tablet) 5 mg PO BID [facility] Stop: 08/03/21 08:59 Last Admin: 07/04/21 11:08 Dose: 5 mg Documented by: [id number] Aspirin (Aspirin 81 Mg Ectab) 81 mg PO DAILY [facility] Stop: 08/03/21 08:59 Last Admin: 07/04/21 11:09 Dose: 81 mg Documented by: [id number] Clopidogrel Bisulfate (Clopidogrel Bisulfate 75 Mg Tab) [facility] [place]: 08/03/21 08:59 Last Admin: 07/04/21 11:09 Dose: 75 mg Documented by: [id number] Ezetimibe (Ezetimibe 10 Mg Tablet) [facility] [place] Stop: 08/03/21 08:59 Last Admin: 07/04/21 11:09 Dose: 10 mg Documented by: [id number] Fenofibrate (Fenofibrate Nanocrystallized 48 Mg Tablet) [facility] [place] Stop: 08/03/21 08:59 Last Admin: 07/04/21 11:09 Dose: 48 mg Documented by: [id number] Fluoxetine HCl (Fluoxetine Hcl 20 Mg Cap) 40 mg PO DAILY [facility] Stop: 08/03/21 08:59 Last Admin: 07/04/21 11:08 Dose: 40 mg Documented by: [id number] Lisinopril (Lisinopril 10 Mg Tab) 10 mg PO DAILY [facility] Stop: 08/03/21 08:59 Last Admin: 07/04/21 11:08 Dose: 10 mg Documented by: [id number] Ondansetron HCl (Ondansetron Inj 2 Mg/Ml 2 Ml Vial) 4 mg IV Q6H PRN PRN Reason: Nausea Stop: 08/03/21 03:18 Last Admin: 07/04/21 06:00 Dose: 4 mg Documented by: [id number] Vitamin B Complex (Vitamin B Complex Tab) 1 tab PO QAM [facility] Stop: 08/03/21 08:59 Last Admin: 07/04/21 11:09 Dose: 1 tab Documented by: [id number] Discontinued Medications Famotidine (Famotidine 40 Mg Tablet) 40 mg PO QAM [facility] Stop: 08/03/21 08:59 Last Admin: 07/04/21 11:10 Dose: 40 mg Documented by: [id number] Sodium Chloride (Nss 1000ml) 1,000 mls @ 125 mls/hr IV .Q8H [facility]UPINDER Stop: 08/02/21 23:29 Last Infusion: 07/04/21 03:46 Dose: 0 mls/hr Documented by: [id number] Admin: 07/04/21 00:26 Dose: 125 mls/hr Documented by: [id number] Imaging Data Radiologist's Impression: Head CT 07/03/21 23:[address] DOSE: 537.48 mGy.cm HISTORY: weakness, on eliquis TECHNIQUE: Multiaxial CT images of the head were performed without the use of intravenous contrast. Automated exposure control was utilized for this study. A dose lowering technique was utilized adhering to the principles of ALARA. Comparison: Head CT 03/16/2021. Findings: The paranasal sinuses and mastoid air cells are clear. The calvarium and skull base are intact. There is no mass, hematoma, midline shift, acute infarct. White matter hypodensity is nonspecific but suggestive of microvascular ischemic change. The ventricles and sulci demonstrate mild age-related involutional changes. Old right basal ganglia infarct, unchanged. Impression: No significant change compared to the prior study. No acute intracranial abnormality. ACT 112: Negative or not required by law. Electronically signed by: Chris Oliveira M.D. 07/04/2021 7:05 AM Discharge Plan Visit Data Chief Complaint: Weakness Stated Complaint: WEAKNESS, CANT WALK, L LEG ELSIE ED Provider: Braden Cowan Discharge Problem: Generalized weakness, Ambulatory dysfunction, Diarrhea Patient Disposition: Admitted As Inpatient Discharge Instructions Interventions: ED Discharge Assessment Last Done: 07/04/21 02:55
[2021-07-04 00:04] LABS: Basophils # (auto) 0.02 K/uL (0-0.2); Basophils % (auto) 0.2 %; Eosinophils # (auto) 0.05 K/uL (0-0.5); Eosinophils % (auto) 0.4 %; Hematocrit (blood only) 41.4 % (42-52); Hemoglobin 14.3 g/dL (14.0-18.0); Immature Granulocytes # (auto) 0.05 K/uL (0.00-0.02); Immature Granulocytes % (auto) 0.4 %; Lymphocytes # (auto) 1.45 K/uL (1.2-3.4); Lymphocytes % (auto) 12.8 %; Mean Corpuscular Hemoglobin 31.4 pg (25-34); Mean Corpuscular Hgb Conc 34.5 g/dL (32-36); Mean Corpuscular Volume 90.8 fL (80-100); Mean Platelet Volume 11.9 fL (7.4-10.4); Monocytes # (auto) 1.03 K/uL (0.11-0.59); Monocytes % (auto) 9.1 %; Neutrophils # (auto) 8.77 K/uL (1.4-6.5); Neutrophils % (auto) 77.1 %; Platelet Count 175 K/uL (130-400); RDW Standard Deviation 42.8 fL (36.4-46.3); Red Blood Count 4.56 M/uL (4.7-6.1); White Blood Count 11.37 K/uL (4.8-10.8)
[2021-07-04 00:20] LABS: BUN Creatinine Ratio 23.6 (10-20); Blood Urea Nitrogen 36 mg/dl (7-18); Calcium 9.1 mg/dl (8.5-10.1); Carbon Dioxide 21 mmol/L (21-32); Chloride 110 mmol/L (98-107); Est GFR (African American) 51.2 ml/min; Est GFR (Non-African American) 44.2 ml/min; Glucose 121 mg/dl (70-99); Sodium 137 mmol/L (136-145)
--- NOTE | 2021-07-04 01:55 | History & Physical Report ---
Date of Service July 04, 2021 Assessment & Plan (1) Diarrhea: Plan: Patient reports 2 weeks of profuse, watery diarrhea. No recent antibiotic use. He has been in the hospital as well as rehab and [facility] care home. -Check stool for c. diff -Check stool culture -IVF and electrolyte repletion (2) Physical deconditioning: Plan: Patient reports weakness and debility. Difficulty with ambulation. He has had a prolonged medical course over the last 6 months. -PT/OT evaluation (3) HTN (hypertension): Plan: Blood pressure elevated. Presently 176/95 -Continue Metoprolol, Lisinopril (4) GERD (gastroesophageal reflux disease): Plan: Chronic. -Continue Pepcid (5) Atrial fibrillation: Plan: Chronic. Rate controlled on Metoprolol. Anticoagulated on Eliquis -Continue Eliquis and Metoprolol (6) Stroke: Plan: Patient with recent CVA with left sided deficit -Continue ASA, Plavix -Continue Zetia (7) Pressure ulcer of right buttock: Plan: Turn q 2 hours Skin care (8) Restless leg syndrome: Plan: Chronic -Continue Ropinirole 0.5mg po qHS (9) CKD (chronic kidney disease) stage 3, GFR 30-59 ml/min: Plan: Near baseline -Continue to monitor BUN, Cr, electrolytes and UOP -Avoid nephrotoxic agents -Renal dosing where needed (10) Depression: Plan: Chronic -Continue Fluoxetine History of Present Illness Chief Complaint: weakness, diarrhea Primary Care Provider: Alejandrina Brooks DO Shailesh Antonio is a 75yo male presenting with generalized weakness, difficulty ambulating and deconditioning. Patient had an acute CVA appx 6 months ago with residual left sided deficit. He spent time at [facility]. He returned to his home yesterday. He reports 14 days of profuse, green, watery diarrhea. He has at least one watery bowel movement/day. He states that after he eats food he feels that it just sits in his stomach. Then he develops lower abodominal pain and has an episode of diarrhea. He denies fever, chills, nausea, vomiting, bloody diarrhea. No recent illness or antibiotic use. No close contacts with diarrhea or travel. Patient was seen in the ER earlier today for this complaint. He had a negative workup therefore was discharged home. He states that he was unable to climb the stairs due to weakness therefore returned to the ER. Feels that his strength was improving and he was getting around better prior to diarrhea starting 2 weeks ago and now he has lost a considerable amount of strength. States he is unable to ambulate or perform his ADLs due to weakness. Allergies Allergy/AdvReac Type Severity Reaction Status Date / Time Corticosteroids Allergy Unknown Unknown Verified 07/04/21 00:05 (Glucocorticoids) niacin Allergy Unknown ARTHRALGIAS Verified 07/04/21 00:05 FROM ADVICOR telithromycin Allergy Unknown ARTHRALGIAS Verified 07/04/21 00:05 FROM ADVICOR atorvastatin AdvReac Intermediate Muscle Pain Verified 07/04/21 00:05 lovastatin AdvReac Intermediate ARTHRALGIAS Verified 07/04/21 00:05 FROM ADVICOR Dgwrlli-[id number]-Lrb Reductase AdvReac Intermediate Muscle Pain Verified 07/04/21 00:05 Inhibitor Home Medications Medication Instructions Recorded Confirmed Type ezetimibe 10 mg tablet 10 mg PO QAM 11/11/19 07/04/21 History fenofibrate nanocrystallized 48 mg 48 mg PO QAM 11/27/20 07/04/21 History tablet apixaban 5 mg tablet (Eliquis) 5 mg PO BID 01/17/21 07/04/21 History ferrous sulfate 325 mg (65 mg 325 mg PO AMPM 01/17/21 07/04/21 History iron) tablet metoprolol succinate 25 mg 25 mg PO HS 01/17/21 07/04/21 History tablet,extended release 24 hr cholecalciferol (vitamin D3) 50 2,000 unit PO QAM 01/27/21 07/04/21 History mcg (2,000 unit) capsule (Vitamin D3) docusate sodium 100 mg capsule 100 mg PO TID 01/27/21 07/04/21 History clopidogrel 75 mg tablet 75 mg PO QAM #30 tab 01/29/21 07/04/21 Rx vitamin B complex (Vitamins B 1 tab PO QAM #30 cap 01/30/21 07/04/21 Rx Complex) ropinirole 0.5 mg tablet 0.5 mg PO HS 02/17/21 07/04/21 History aspirin 81 mg tablet,delayed 81 mg PO DAILY 03/16/21 07/04/21 History release (Aspirin Low Dose) multivitamin with minerals 1 tab PO DAILY 03/16/21 07/04/21 History omeprazole 20 mg capsule,delayed 20 mg PO BID 03/16/21 07/04/21 History release fluoxetine 40 mg capsule 40 mg PO DAILY 07/04/21 07/04/21 History lisinopril 10 mg tablet 10 mg PO DAILY 07/04/21 07/04/21 History Past Med/Surg History Medical History (Updated 07/04/21 @ 06:50 by Kim Giang DO) Accidental drug overdose Atelectasis of left lung after open heart surgery Salinas's palsy CAD (coronary artery disease) CKD (chronic kidney disease) stage 3, GFR 30-59 ml/min CVA (cerebral vascular accident) january 2021 Depression Diaphragmatic paralysis GERD (gastroesophageal reflux disease) HTN (hypertension) Hypercholesteremia Hypertriglyceridemia Hypotension Pleural effusion, left after open heart surgery Presence of arterial stent L leg, unable to relate exact location. Restless leg syndrome TIA (transient ischemic attack) Type II diabetes mellitus Surgical History H/O knee surgery stent behind left knee 2017 H/O vasectomy History of angioplasty of peripheral vessel LLE angiogram with [employer] popliteal 05/23/2018 Hx of colonoscopy 2017 S/P CABG x 3 Family History Diabetes Mother Colorectal cancer Grandfather Hypertension Mother Stroke Brother Social History Smoking Status: Former smoker Tobacco Type: Cigarettes Smoking End Date: QUIT 8 YEARS AGO; Second Hand Exposure: No; Tobacco Cessation Education Requested by Patient: No Hx Alcohol Use: No Hx Substance Use: No Preferred Language: Barbadian Communication Ability: Effective Health And Wellness Instructor Required: No Beliefs That Will Affect Care: None marital status: Unknown Current Living Situation: Alone Current Living Situation Comment: JUST DISCHARGED FROM [facility] TO HOME ALONE current occupational status: retired Other Information That Helps Us Care for You: No Feels Safe at Home: Yes Safety Concerns: Feels Safe At This Time Assistive Devices: Glasses Assistive Devices Comment: HEARING AIDS NOT AT HOSPITAL Review of Systems Review of Systems: All systems reviewed & are unremarkable except as noted in HPI & below he denies fever, chills, chest pain, SOB, palpitations, vomiting, melena/hematochezia, dysuria Physical Exam Physical Exam: General: patient resting comfortably, NAD, ill and fatigued in appearance, AA&O x 4 Skin: warm, dry, intact, no rashes or lesions HEENT: NC/AT, PERRL, EOMI, anicteric sclera, conjunctiva without injection, external ear normal to inspection and nontender, nares patent, dry mucus membranes, dentition intact, no oropharyngeal lesions, neck supple, trachea midline, no LAD, no thyromegaly, no JVD Heart: +S1/S2, irregularly irregular, no m/r/g Lungs: equal air entry bilaterally, no rales/rhonchi/wheezes Abd: +BS, soft, NT/ND, no masses/organomegaly/ascites Ext: warm, 2+ pulses in UE/LE bilaterally, no clubbing/cyanosis or edema Neuro: left sided weakness of UE/LE baseline Results & Data Results & Data ([facility]) Vital Signs (Past 12 Hours) Vital Signs Temp Pulse Resp BP Pulse Ox 07/03/21 22:33 36.0 C L 85 20 134/68 99 Laboratory Results Laboratory Results WBC 11.37 K/uL (4.8-10.8) H 07/03/21 23:50 RBC 4.56 M/uL (4.7-6.1) L 07/03/21 23:50 Hgb 14.3 g/dL (14.0-18.0) 07/03/21 23:50 Hct 41.4 % (42-52) L 07/03/21 23:50 MCV 90.8 fL (80-100) 07/03/21 23:50 MCH 31.4 pg (25-34) 07/03/21 23:50 MCHC 34.5 g/dL (32-36) 07/03/21 23:50 RDW Std Deviation 42.8 fL (36.4-46.3) 07/03/21 23:50 RDW Coeff of Brice 13.0 % (11.5-14.5) 07/03/21 23:50 Plt Count 175 K/uL (130-400) 07/03/21 23:50 MPV 11.9 fL (7.4-10.4) H 07/03/21 23:50 Immature Gran % (Auto) 0.4 % 07/03/21 23:50 Neut % (Auto) 77.1 % 07/03/21 23:50 Lymph % (Auto) 12.8 % 07/03/21 23:50 [place] % (Auto) 9.1 % 07/03/21 23:50 Eos % (Auto) 0.4 % 07/03/21 23:50 Baso % (Auto) 0.2 % 07/03/21 23:50 Neut # (Auto) 8.77 K/uL (1.4-6.5) H 07/03/21 23:50 Lymph # (Auto) 1.45 K/uL (1.2-3.4) 07/03/21 23:50 [place] # (Auto) 1.03 K/uL (0.11-0.59) H 07/03/21 23:50 Eos # (Auto) 0.05 K/uL (0-0.5) 07/03/21 23:50 Baso # (Auto) 0.02 K/uL (0-0.2) 07/03/21 23:50 Immature Gran # (Auto) 0.05 K/uL (0.00-0.02) H 07/03/21 23:50 Sodium 137 mmol/L (136-145) 07/03/21 23:50 Potassium 4.0 mmol/L (3.5-5.1) 07/03/21 23:50 Chloride 110 mmol/L (98-107) H 07/03/21 23:50 Carbon Dioxide 21 mmol/L (21-32) 07/03/21 23:50 Anion Gap 6.0 (3-11) 07/03/21 23:50 BUN 36 mg/dl (7-18) H 07/03/21 23:50 Creatinine 1.52 mg/dl (0.6-1.4) H 07/03/21 23:50 Est Cr Clr Drug Dosing Not Reportable 07/03/21 23:50 Est GFR ( Amer) 51.2 ml/min 07/03/21 23:50 Est GFR (Non-Af Amer) 44.2 ml/min 07/03/21 23:50 BUN/Creatinine Ratio 23.6 (10-20) H 07/03/21 23:50 Glucose 121 mg/dl (70-99) H 07/03/21 23:50 Calcium 9.1 mg/dl (8.5-10.1) 07/03/21 23:50 Phosphorus 3.0 mg/dl (2.5-4.9) 07/03/21 23:50 Total Creatine Kinase 105 U/L (39-308) 07/03/21 23:50 TSH 0.992 uIu/ml (0.300-4.500) 07/03/21 23:50 Code Status & VTE Plan VTE Prophylaxis Plan VTE Prophylaxis will be ordered: Yes PG Care Time/CCT Total # of Minutes Spent Total Time Spent with Patient: Total time spent is greater than 50% in coordination of care (as documented) at patient's floor/unit and/or counseling patient: Coding Level of Care Code INT OBSERVATION CARE 70M LVL 3 Diagnoses HTN (hypertension) I10 Hypertension type: essential hypertension GERD (gastroesophageal reflux disease) K21.9 Esophagitis presence: esophagitis presence not specified Atrial fibrillation I48.0 Atrial fibrillation type: paroxysmal Stroke I63.49 CVA mechanism: embolism Precerebral and cerebral artery: other cerebral artery Diarrhea R19.7 Diarrhea type: unspecified type Pressure ulcer of right buttock L89.319 Pressure injury stage: unspecified pressure injury stage Restless leg syndrome G25.81 CKD (chronic kidney disease) stage 3, GFR 30-59 ml/min N18.30 Chronic kidney disease stage 3 subtype: unspecified whether 3a or 3b Depression F32.9 Depression Type: unspecified Physical deconditioning R53.81 (1) HTN (hypertension) Hypertension type: essential hypertension Qualified Code(s): I10 - Essential (primary) hypertension (2) GERD (gastroesophageal reflux disease) Esophagitis presence: esophagitis presence not specified Qualified Code(s): K21.9 - Gastro-esophageal reflux disease without esophagitis (3) Atrial fibrillation Atrial fibrillation type: paroxysmal Qualified Code(s): I48.0 - Paroxysmal atrial fibrillation (4) Stroke CVA mechanism: embolism Precerebral and cerebral artery: other cerebral artery Qualified Code(s): I63.49 - Cerebral infarction due to embolism of other cerebral artery (5) Diarrhea Diarrhea type: unspecified type Qualified Code(s): R19.7 - Diarrhea, unspecified (6) Pressure ulcer of right buttock Pressure injury stage: unspecified pressure injury stage Qualified Code(s): L89.319 - Pressure ulcer of right buttock, unspecified stage (7) CKD (chronic kidney disease) stage 3, GFR 30-59 ml/min Chronic kidney disease stage 3 subtype: unspecified whether 3a or 3b Qualified Code(s): N18.30 - Chronic kidney disease, stage 3 unspecified (8) Depression Depression Type: unspecified Qualified Code(s): F32.9 - Major depressive disorder, single episode, unspecified
[2021-07-04] MEDS ORDERED: ONDANSETRON INJ 2 MG/ML 2 ML VIAL IV PRN (03:19)
[2021-07-04 03:48] LABS: Creatine Kinase 105 U/L (39-308); Thyroid Stimulating Hormone 0.992 uIu/ml (0.300-4.500)
--- NOTE | 2021-07-04 07:06 | CT Scan Report ---
HEAD CT NONCONTRAST CT DOSE: 537.48 mGy.cm HISTORY: weakness, on eliquis TECHNIQUE: Multiaxial CT images of the head were performed without the use of intravenous contrast. A utomated exposure control was utilized for this study. A dose lowering technique was utilized adheri ng to the principles of ALARA. Comparison: Head CT 03/16/2021. Findings: The paranasal sinuses and mastoid air cells are clear. The calvarium and skull base are int act. There is no mass, hematoma, midline shift, acute infarct. White matter hypodensity is nonspecifi c but suggestive of microvascular ischemic change. The ventricles and sulci demonstrate mild age-rela melo involutional changes. Old right basal ganglia infarct, unchanged. Impression: No significant change compared to the prior study. No acute intracranial abnormality. ACT 112: Negative or not required by law. Electronically signed by: Chris Oliveira M.D. 07/04/2021 7:05 AM
[2021-07-04] MEDS ORDERED: FAMOTIDINE 40 MG TABLET PO SCH (09:00)
[2021-07-04] MEDS: FLUoxetine HCL 20 MG CAP PO SCH (11:08)
[2021-07-04] MEDS: lisinopril 10 MG TAB PO SCH (11:08)
[2021-07-04] MEDS: APIXABAN 5 MG TABLET PO SCH ×2 (11:08→20:26)
[2021-07-04] MEDS: CLOPIDOGREL BISULFATE 75 MG TAB PO SCH (11:09)
[2021-07-04] MEDS: FENOFIBRATE NANOCRYSTALLIZED 48 MG TABLET PO SCH (11:09)
[2021-07-04] MEDS: VITAMIN B COMPLEX TAB PO SCH (11:09)
[2021-07-04] MEDS: EZETIMIBE 10 MG TABLET PO SCH (11:09)
[2021-07-04] MEDS: ASPIRIN 81 MG ECTAB PO SCH (11:09)
--- NOTE | 2021-07-04 13:02 | Hospitalist Progress Note ---
Date of Service July 04, 2021 Assessment & Plan (1) Diarrhea: Plan: Shailesh Antonio is a 75 yo male with PMHx significant for CKD3 (Cr 1.7 - 1.8), CAD s/p CABG x3, and h/o CVA 6 months ago (with residual L-sided deficits, returned from rehab the day before admission) who was admitte d to [facility] on 07/04 for diarrhea and weight loss. Diarrhea, Weight Loss, Decreased Appetite, Generalized Weakness Symptoms most likely due to viral vs bacterial GI illness but malignancy cannot be ruled out at this time. - c-diff toxin negative (gene positive), stool cultures pending - FOBT negative, last Colonoscopy in 2017 (several polyps removed) - CT head unremarkable - plan for CT A/P for further evaluation, if stool culture negative - encourage PO intake Chronic Deconditioning In setting of last CABG ~9 months ago and debilitating CVA 6 months ago, with prolonged course of rehab. - PT/OT consulted - recommend acute rehab on discharge - CM to assist with disposition planning Atrial Fibrillation Chronic. Rate controlled on Metoprolol. Anticoagulated on Eliquis -Continue Eliquis and Metoprolol HTN -continue home Toprol XL and Lisinopril GERD - continue Pepcid H/o CVA Patient with recent CVA with left sided deficit -Continue ASA, Plavix -Continue Zetia CKDIII Cr at baseline. - Avoid nephrotoxic agents, renal dosing where needed Right Buttock Pressure Ulcer - wound care consulted RLS Chronic. - Continue Ropinirole 0.5mg PO QHS Depression Chronic. - Continue Fluoxetine FEN/GI: Heart-healthy/DM2 diet DVT Prophylaxis: Eliquis Code Status: full code Disposition: med/surg (2) Physical deconditioning: Plan: (3) HTN (hypertension): (4) GERD (gastroesophageal reflux disease): (5) Atrial fibrillation: (6) Stroke: (7) Pressure ulcer of right buttock: (8) Restless leg syndrome: (9) CKD (chronic kidney disease) stage 3, GFR 30-59 ml/min: (10) Depression: Admission and Anticipated Discharge Date Admission Date: July 04, 2021 Supervising Physician Co-Signing Physician Notes I also saw the patient with the resident physician and confirmed morrison portions of the history and physical examination. I agree with the impression and plan as noted in the resident documentation. Pleasant 75-year-old male brought in for observation earlier this morning after what sounds to be a 2-week history of progressive weakness, difficulty with ambulation, decreased appetite with weight loss, and progressive loose, watery, nonbloody stools.This morning, he describes having minimal appetite. When he does eat, he describes a sensation of feeling full and nauseous after minimal in take. EXAM 134/83, 95, 16, 36.4, 90% room air Alert and oriented. No distress appreciated while he lies in bed. HEENT grossly unremarkable. Mucous membranes are moist. Neck is supple. Heart regular with somewhat frequent ectopy. Lungs clear with nonlabored respirations The abdomen is soft and nontender. DATA White blood cell count 7.3, hemoglobin 14.3 BUN 36, creatinine 1.52 CT scan of the head and chest x-ray were unremarkable. Stool studies are pending. IMP/PLAN Weakness Change in bowel habits Weight loss Stool studies are pending If nondiagnostic, consider CT scan of the abdomen and pelvis Increase Pepcid to 40 mg twice daily May need gastroenterology consultation Additional per resident documentation Subjective Patient reports 20-25 pound weight loss in the last several weeks. Also reports decreased appetite, progressive generalized weakness, and occasional burning general stomach pain that has accompanied his diarrhea. Reports that last Colonoscopy was in 2017 and was unremarkable besides for a few "benign polyps" that were removed. Denies hematochezia or melena. Denies recent respiratory or urinary symptoms. Denies fever/chills or B symptoms. Review of Systems Review of Systems: All systems reviewed & are unremarkable except as noted in HPI & below Physical Exam Physical Exam: General: A&Ox3. NAD. Cooperative. Pale. HEENT: Atraumatic, normocephalic. Pulm: CTAB A&P. -wheezes, -rales, -rhonchi. Symmetrical chest rise. No increase work of breathing. No respiratory distress. Cardiac: RRR, -mrg. Radial pulses intact and symmetrical. Abdominal: soft, non-tender, non-distended, BS x 4 Skin: warm, dry, no rash Results & Data Results & Data ([facility]) Vital Signs (Past 12 Hours) Vital Signs Temp Pulse Resp BP Pulse Ox 07/04/21 07:36 36.4 C L 95 H 16 134/83 98 07/04/21 03:26 36.9 C 87 20 176/95 H 98 07/04/21 02:00 74 153/75 H 99 Resident Activity Tracking Resident Involvement: Resident Care Provided Care Provided: Adult Hospital Medicine (1) Pressure ulcer of right buttock Pressure injury stage: unspecified pressure injury stage Qualified Code(s): L89.319 - Pressure ulcer of right buttock, unspecified stage (2) CKD (chronic kidney disease) stage 3, GFR 30-59 ml/min Chronic kidney disease stage 3 subtype: unspecified whether 3a or 3b Qualified Code(s): N18.30 - Chronic kidney disease, stage 3 unspecified (3) Atrial fibrillation Atrial fibrillation type: paroxysmal Qualified Code(s): I48.0 - Paroxysmal atrial fibrillation (4) Depression Depression Type: unspecified Qualified Code(s): F32.9 - Major depressive disorder, single episode, unspecified (5) Diarrhea Diarrhea type: unspecified type Qualified Code(s): R19.7 - Diarrhea, unspecified (6) GERD (gastroesophageal reflux disease) Esophagitis presence: esophagitis presence not specified Qualified Code(s): K21.9 - Gastro-esophageal reflux disease without esophagitis (7) HTN (hypertension) Hypertension type: essential hypertension Qualified Code(s): I10 - Essential (primary) hypertension (8) Stroke CVA mechanism: embolism Precerebral and cerebral artery: other cerebral ar gayle Qualified Code(s): I63.49 - Cerebral infarction due to embolism of other cerebral artery
[2021-07-04 14:20] LABS: Cdiff Antigen Positive; Cdiff Toxin A+B Negative Cdiff Toxin (Negative)
[2021-07-04] MEDS: METOPROLOL SUCC 25MG EXT REL TAB PO SCH (20:26)
[2021-07-04] MEDS: rOPINIRole HCL 0.25 MG TABLET PO SCH (20:27)
[2021-07-04] MEDS: PANTOprazole 40 MG TAB PO SCH (20:30)
[2021-07-05 06:46] LABS: Basophils # (auto) 0.04 K/uL (0-0.2); Basophils % (auto) 0.5 %; Eosinophils # (auto) 0.14 K/uL (0-0.5); Eosinophils % (auto) 1.8 %; Hematocrit (blood only) 39.2 % (42-52); Hemoglobin 13.4 g/dL (14.0-18.0); Immature Granulocytes # (auto) 0.02 K/uL (0.00-0.02); Immature Granulocytes % (auto) 0.3 %; Lymphocytes # (auto) 1.76 K/uL (1.2-3.4); Lymphocytes % (auto) 22.2 %; Mean Corpuscular Hemoglobin 30.9 pg (25-34); Mean Corpuscular Hgb Conc 34.2 g/dL (32-36); Mean Corpuscular Volume 90.5 fL (80-100); Mean Platelet Volume 12.2 fL (7.4-10.4); Monocytes # (auto) 0.68 K/uL (0.11-0.59); Monocytes % (auto) 8.6 %; Neutrophils # (auto) 5.28 K/uL (1.4-6.5); Neutrophils % (auto) 66.6 %; Platelet Count 156 K/uL (130-400); RDW Standard Deviation 43.4 fL (36.4-46.3); Red Blood Count 4.33 M/uL (4.7-6.1); White Blood Count 7.92 K/uL (4.8-10.8)
--- NOTE | 2021-07-05 06:52 | Electrocardiogram Report ---
Test Reason : Blood Pressure : / mmHG Vent. Rate : 074 BPM Atrial Rate : 074 BPM P-R Int : 162 ms QRS Dur : 094 ms QT Int : 430 ms P-R-T Axes : 063 002 054 degrees QTc Int : 477 ms Sinus rhythm with Premature atrial complexes Otherwise normal ECG When compared with ECG of 03-JUL-2021 18:54, (unconfirmed) Premature atrial complexes are now Present Confirmed by Inocente Mcpherson ([id number]) on 07/05/2021 6:52:31 AM Referred By: REFERRED SELF Confirmed By:Mahad Mcpherson
[2021-07-05 07:19] LABS: Albumin Level 3.2 gm/dl (3.4-5.0); BUN Creatinine Ratio 17.3 (10-20); Bilirubin Direct 0.1 mg/dl (0-0.2); Bilirubin,Total 0.5 mg/dl (0.2-1); Calcium 9.1 mg/dl (8.5-10.1); Creatinine Clr Calc Pharmacy 47.4 ml/min; Est GFR (African American) 64.2 ml/min; Est GFR (Non-African American) 55.4 ml/min; Potassium 3.9 mmol/L (3.5-5.1); Total Protein 6.1 gm/dl (6.4-8.2)
--- NOTE | 2021-07-05 08:01 | Hospitalist Progress Note ---
Date of Service July 05, 2021 Assessment & Plan (1) Diarrhea: Plan: Shailesh Antonio is a 75 yo male with PMHx significant for CKD3 (Cr 1.7 - 1.8), CAD s/p CABG x3, and h/o CVA 6 months ago (with residual L-sided deficits, returned from rehab the day before admission) who was admitte d to [facility] on 07/04 for diarrhea and weight loss. Diarrhea, Weight Loss, Decreased Appetite, Generalized Weakness Symptoms most likely due to viral vs bacterial GI illness but malignancy cannot be ruled out at this time. - Appetite and diarrhea improving since admission - c-diff toxin negative (gene positive), stool cultures pending - FOBT negative, last Colonoscopy in 2017 (several polyps removed) - CT head unremarkable - Stool Cx negative - CT A/P with no acute findings - encourage PO intake Chronic Deconditioning In setting of last CABG ~9 months ago and debilitating CVA 6 months ago, with prolonged course of rehab. - PT/OT consulted - recommend acute rehab on discharge - CM to assist with disposition planning Atrial Fibrillation Chronic. Rate controlled on Metoprolol. Anticoagulated on Eliquis -Continue Eliquis and Metoprolol HTN -continue home Toprol XL and Lisinopril GERD - continue Pepcid H/o CVA Patient with recent CVA with left sided deficit -Continue ASA, Plavix -Continue Zetia CKDIII Cr at baseline. - Avoid nephrotoxic agents, renal dosing where needed - CT A/P with finding of moderate to severe atrophy of the left kidney, which has progressively worsened from 11/11/2019 and demonstrates decreased perfusion secondary to high-grade stenosis of left renal artery - Kidney function and blood pressure stable at this time - Patient sees [facility] Nephro as outpatient, consider consult vs curbside discussion for possible outpatient f/u of this Right Buttock Pressure Ulcer - wound care consulted RLS Chronic. - Continue Ropinirole 0.5mg PO QHS Depression Chronic. - Continue Fluoxetine FEN/GI: Heart-healthy/DM2 diet DVT Prophylaxis: Eliquis Code Status: full code Disposition: med/surg (2) Physical deconditioning: Plan: (3) HTN (hypertension): (4) GERD (gastroesophageal reflux disease): (5) Atrial fibrillation: (6) Stroke: (7) Pressure ulcer of right buttock: (8) Restless leg syndrome: (9) CKD (chronic kidney disease) stage 3, GFR 30-59 ml/min: (10) Depression: Admission and Anticipated Discharge Date Admission Date: July 04, 2021 Supervising Physician Co-Signing Physician Notes I also saw the patient with the resident physician and confirmed morrison portions of the history and physical examination. I agree with the impression and plan as noted in the resident documentation. Patient notes that he tolerated breakfast and his meals last evening after I saw him better than he had anticipated. Denied any nausea or vomiting. He also tolerated the oral contrast solution for his CT scan without much difficulty. He did have a couple of loose bowel movements, similar to what he was having previously. Denies any abdominal pain or cramping. EXAM 129/83, 65, 18, 36.3, 100% on room air Alert and oriented. No distress appreciated while he lies in bed. HEENT grossly unremarkable. Mucous membranes are moist. Neck is supple. Heart regular with some ectopy. Lungs clear with nonlabored respirations The abdomen is soft and nontender. DATA WBC 7.92, hemoglobin 13.4 BUN 22, creatinine 1.26 CT scan of the abdomen pelvis shows no acute abdominal process. It does demonstrate moderate to severe atrophy of the left kidney, progressively worsened compared to October 2019. Stool studies were negative. IMP/PLAN Weakness Change in bowel habits Weight loss Atrophy of the left kidney, question left renal artery stenosis PT/OT to evaluate; given the patient's weakness, suspect will need additional inpatient rehabilitation Continue Protonix twice daily; this seems to be helping his upper GI symptoms, appetite is improved. He follows with nephrology as an outpatient; with respect to atrophy of left kidney and question of renal artery stenosis, at this point his serum creatinine is stable and is really been no issues with his blood pressures. Review outpatient nephrology records; unsure if this needs addressed during hospitalization or as outpatient. Additional per resident documentation Subjective No acute events overnight. Patient reports feeling somewhat better, though he still does feel quite weak. He mentions that appetite and diarrhea are both improving. Understands that rehabilitation will likely be a necessity given his significant weakness. Denies fever, chills, nausea, vomiting, abdominal pain, chest pain, palpitations, shortness of breath, cough. Review of Systems Review of Systems: Per subjective Physical Exam Physical Exam: General: A&Ox3. NAD. Cooperative. Pale. HEENT: Atraumatic, normocephalic. Pulm: CTAB A&P. -wheezes, -rales, -rhonchi. Symmetrical chest rise. No increase work of breathing. No respiratory distress. Cardiac: RRR, -mrg. Radial pulses intact and symmetrical. Abdominal: soft, non-tender, non-distended, BS x 4 Skin: warm, dry, no rash Results & Data Results & Data ([facility]) Vital Signs (Past 12 Hours) Vital Signs Temp Pulse Resp BP Pulse Ox 07/05/21 06:23 36.3 C L 65 18 129/83 100 07/04/21 23:58 36.9 C 63 18 108/66 99 Resident Activity Tracking Resident Involvement: Resident Care Provided Care Provided: Adult Hospital Medicine (1) Diarrhea Diarrhea type: unspecified type Qualified Code(s): R19.7 - Diarrhea, unspecified (2) HTN (hypertension) Hypertension type: essential hypertension Qualified Code(s): I10 - Essential (primary) hypertension (3) GERD (gastroesophageal reflux disease) Esophagitis presence: esophagitis presence not specified Qualified Code(s): K21.9 - Gastro-esophageal reflux disease without esophagitis (4) Atrial fibrillation Atrial fibrillation type: paroxysmal Qualified Code(s): I48.0 - Paroxysmal atrial fibrillation (5) Stroke CVA mechanism: embolism Precerebral and cerebral artery: other cerebral artery Qualified Code(s): I63.49 - Cerebral infarction due to embolism of other cerebral artery (6) Pressure ulcer of right buttock Pressure injury stage: unspecified pressure injury stage Qualified Code(s): L89.319 - Pressure ulcer of right buttock, unspecified stage (7) CKD (chronic kidney disease) stage 3, GFR 30-59 ml/min Chronic kidney disease stage 3 subtype: unspecified whether 3a or 3b Quali fied Code(s): N18.30 - Chronic kidney disease, stage 3 unspecified (8) Depression Depression Type: unspecified Qualified Code(s): F32.9 - Major depressive disorder, single episode, unspecified
[2021-07-05] MEDS ORDERED: OPTIRAY 320 100ml IV ONE (09:02)
[2021-07-05] MEDS: PANTOprazole 40 MG TAB PO SCH ×2 (09:21→20:05)
[2021-07-05] MEDS: APIXABAN 5 MG TABLET PO SCH ×2 (09:22→20:05)
[2021-07-05] MEDS: FLUoxetine HCL 20 MG CAP PO SCH (09:22)
[2021-07-05] MEDS: FENOFIBRATE NANOCRYSTALLIZED 48 MG TABLET PO SCH (09:23)
[2021-07-05] MEDS: lisinopril 10 MG TAB PO SCH (09:23)
[2021-07-05] MEDS: VITAMIN B COMPLEX TAB PO SCH (09:23)
[2021-07-05] MEDS: CLOPIDOGREL BISULFATE 75 MG TAB PO SCH (09:23)
[2021-07-05] MEDS: ASPIRIN 81 MG ECTAB PO SCH (09:23)
[2021-07-05] MEDS: EZETIMIBE 10 MG TABLET PO SCH (09:24)
--- NOTE | 2021-07-05 11:19 | CT Scan Report ---
ABDOMEN AND PELVIS CT WITH IV AND ORAL CONTRAST CT DOSE: 317.92 mGy.cm HISTORY: Acute diarrhea with weight loss weight loss, diarrhea, abd burning TECHNIQUE: Multiaxial CT images of the abdomen and pelvis were performed following the IV administrat ion of 94 cc of Optiray and oral contrast. A dose lowering technique was utilized adhering to the pr inciples of DOLORES. COMPARISON STUDY: Chest CT 03/16/2021, CT abdomen and pelvis 11/11/2019 FINDINGS: Prior median sternotomy. Mild cardiomegaly. Coronary artery and mitral annular calcifications. Subseg mental bibasilar groundglass densities favor atelectasis. No pneumatosis or pneumoperitoneum. Left up per extremity positioning limits the study. The spleen measures the upper limits of normal in size at 13 cm. Unremarkable pancreas, gallbladder, and right adrenal gland. Unchanged left adrenal gland myolipoma. Suggested hepatic steatosis. Portal vein. Unremarkable right kidney. No hydronephrosis. Left kidney measures up to 7.6 cm and demonstrate s progressive atrophy compared to the 04/10/2020 exam. There is also decreased enhancement of the left kidney compared to the right with minimal flow seen within the proximal left renal artery. Left silvio nephric edema. Prostamegaly. Moderate bladder wall thickening suggestive of chronic bladder outlet ob struction. Atherosclerosis of the aorta without aneurysm or dissection. There is no adenopathy. No bowel obstruction or bowel wall thickening. Normal appendix. No ascites or mesenteric inflammation . Unremarkable soft tissues. Degenerative changes of the spine, pelvis and hips. Healing subacute non displaced fracture lateral left sixth and seventh ribs. IMPRESSION: 1. Moderate to severe atrophy of the left kidney has progressively worsened from 11/11/2019 and demons trates decreased perfusion secondary to high-grade stenosis of the left renal artery. 2. No bowel obstruction or bowel wall thickening. 3. Prostamegaly with chronic bladder outlet obstruction. 4. Healing subacute nondisplaced fractures of the lateral left sixth and seventh ribs. 5. Additional findings as above. ACT 112: Negative or not required by law. The above report was generated using voice recognition software. It may contain grammatical, syntax o r spelling errors. Electronically signed by: Edmar Whipple M.D. 07/05/2021 11:17 AM
[2021-07-05] MEDS: rOPINIRole HCL 0.25 MG TABLET PO SCH (20:05)
[2021-07-05] MEDS: METOPROLOL SUCC 25MG EXT REL TAB PO SCH (20:05)
[2021-07-06 08:06] LABS: BUN Creatinine Ratio 14.9 (10-20); Calcium 9.3 mg/dl (8.5-10.1); Est GFR (African American) 52.5 ml/min; Est GFR (Non-African American) 45.3 ml/min; Potassium 3.9 mmol/L (3.5-5.1)
[2021-07-06] MEDS ORDERED: GABAPENTIN 100 MG CAP PO ONE (08:15)
[2021-07-06] MEDS: lisinopril 10 MG TAB PO SCH (08:21)
[2021-07-06] MEDS: FENOFIBRATE NANOCRYSTALLIZED 48 MG TABLET PO SCH (08:21)
[2021-07-06] MEDS: CLOPIDOGREL BISULFATE 75 MG TAB PO SCH (08:22)
[2021-07-06] MEDS: ASPIRIN 81 MG ECTAB PO SCH (08:23)
[2021-07-06] MEDS: VITAMIN B COMPLEX TAB PO SCH (08:23)
[2021-07-06] MEDS: FLUoxetine HCL 20 MG CAP PO SCH (08:23)
[2021-07-06] MEDS: APIXABAN 5 MG TABLET PO SCH ×2 (08:24→20:38)
[2021-07-06] MEDS: EZETIMIBE 10 MG TABLET PO SCH (08:24)
[2021-07-06] MEDS: PANTOprazole 40 MG TAB PO SCH ×2 (08:24→20:38)
--- NOTE | 2021-07-06 11:45 | Hospitalist Progress Note ---
Date of Service July 06, 2021 Assessment & Plan (1) Diarrhea: Plan: Shailesh Antonio is a 75 yo male with PMHx significant for CKD3 (Cr 1.7 - 1.8), CAD s/p CABG x3, and h/o CVA 6 months ago (with residual L-sided deficits, returned from rehab the day before admission) who was admitted to [facility] on 07/04 for diarrhea and weight loss. Diarrhea, Weight Loss Symptoms most likely due to viral GI illness. Overall weight loss likely also due to chronic deconditioning in setting of CABG and CVA in the last 9 months. Bacterial illness unlikely given negative c-diff toxin and negative stool culture. Malignancy unlikely given unremarkable CT A/P. - Appetite improving since admission, diarrhea resolved - c-diff toxin negative (gene positive), stool cultures no growth to date - FOBT negative, last Colonoscopy in 2017 (several polyps removed) - CT head unremarkable - CT A/P with no acute findings - encourage PO intake Chronic Deconditioning In setting of last CABG ~9 months ago and debilitating CVA 6 months ago, with prolonged course of rehab. Likely contributing to weight loss as stated above. - PT/OT consulted - recommend acute rehab on discharge - CM consulted to assist with disposition planning Left Renal Artery Stenosis Severe stenosis, decreased perfusion of kidney and associated severe atrophy. CKDIII as stated below; this likely is contributing. - sees Dr. Mercado as outpatient; recommend f/u with him in 1-2 weeks to address this CKDIII Baseline Cr 1.7 - 1.8. Currently better than baseline. - continue to monitor kidney function daily Atrial Fibrillation Chronic. Rate controlled on Metoprolol. Anticoagulated on Eliquis - Continue Eliquis and Metoprolol HTN - continue home Toprol XL and Lisinopril GERD - continue Pepcid H/o CVA Patient with recent CVA and left sided deficits. -Continue ASA, Plavix -Continue Zetia Right Buttock Pressure Ulcer - wound care consulted RLS Chronic. Symptoms were not adequately controlled last night. - Continue Ropinirole 0.5mg PO QHS, consider increasing dose if continues to have breakthrough nocturnal symptoms while hospitalized Depression Chronic. - Continue Fluoxetine FEN/GI: Heart-healthy/DM2 diet DVT Prophylaxis: Eliquis Code Status: full code Disposition: med/surg (2) Physical deconditioning: Plan: (3) HTN (hypertension): (4) GERD (gastroesophageal reflux disease): (5) Atrial fibrillation: (6) Stroke: (7) Pressure ulcer of right buttock: (8) Restless leg syndrome: (9) CKD (chronic kidney disease) stage 3, GFR 30-59 ml/min: (10) Depression: Admission and Anticipated Discharge Date Admission Date: July 04, 2021 Supervising Physician Co-Signing Physician Notes I also saw the patient with the resident physician and confirmed morrison portions of the history and physical examination. I agree with the impression and plan as noted in the resident documentation. Upon exam this morning, he is seated in the bedside chair. He continues to improve in terms of his appetite and diet; tolerating full diet without nausea. Reports no bowel movements. EXAM 103/67, 68, 16, 36.6, 90% on room air Alert and oriented. HEENT grossly unremarkable. Mucous membranes are moist. Neck is supple. Heart regular. Lungs clear with nonlabored respirations The abdomen is soft and nontender. DATA BUN 22, creatinine 1.49 CT scan of the abdomen pelvis shows no acute abdominal process. It does demonstrate moderate to severe atrophy of the left kidney, progressively worsened compared to October 2019. Stool studies were negative. IMP/PLAN Weakness Loose stools, resolved Weight loss secondary to decreased appetite, improving Atrophy of the left kidney, left renal artery stenosis PT/OT to evaluate; given the patient's weakness, suspect will need additional inpatient rehabilitation Continue Protonix twice daily; this seems to be helping his upper GI symptoms, appetite is improved. He follows with nephrology as an outpatient; with respect to atrophy of left kidney and question of renal artery stenosis, at this point his serum creatinine is stable and is really been no issues with his blood pressures. Additional per resident documentation Subjective Patient had persistent RLS symptoms this morning despite regular Ropinirole QHS; received Gabapentin 100mg PO x1 this AM which improved symptoms. Reports that diarrhea has resolved and has had no BMs for >24 hours. No N/V or abdominal pain. Appetite is better. Improving overall. Amenable to rehab. Denies fever/chills, chest pain, palpitations, cough, SOB, rash. Review of Systems Review of Systems: All systems reviewed & are unremarkable except as noted in HPI & below Physical Exam Physical Exam: General: A&Ox3. NAD. Cooperative. HEENT: Atraumatic, normocephalic. Pulm: CTAB A&P. -wheezes, -rales, -rhonchi. Symmetrical chest rise. No increase work of breathing. No respiratory distress. Cardiac: RRR, -mrg. Radial pulses intact and symmetrical. Abdominal: soft, non-tender, non-distended, BS x 4 Skin: warm, dry, no rash Results & Data Results & Data ([facility]) Vital Signs (Past 12 Hours) Vital Signs Temp Pulse Resp BP Pulse Ox 07/06/21 07:19 36.6 C 68 16 103/67 98 Resident Activity Tracking Resident Involvement: Resident Care Provided Care Provided: Adult [facility] Medicine (1) Pressure ulcer of right buttock Pressure injury stage: unspecified pressure injury stage Qualified Code(s): L89.319 - Pressure ulcer of right buttock, unspecified stage (2) CKD (chronic kidney disease) stage 3, GFR 30-59 ml/min Chronic kidney disease stage 3 subtype: unspecified whether 3a or 3b Qualified Code(s): N18.30 - Chronic kidney disease, stage 3 unspecified (3) Atrial fibrillation Atrial fibrillation type: paroxysmal Qualified Code(s): I48.0 - Paroxysmal atrial fibrillation (4) Depression Depression Type: unspecified Qualified Code(s): F32.9 - Major depressive disorder, single episode, unspecified (5) Diarrhea Diarrhea type: unspecified type Qualified Code(s): R19.7 - Diarrhea, unspecified (6) GERD (gastroesophageal reflux disease) Esophagitis presence: esophagitis presence not specified Qualified Code(s): K21.9 - Gastro-esophageal reflux disease without esophagitis (7) HTN (hypertension) Hypertension type: essential hypertension Qualified Code(s): I10 - Essential (primary) hypertension (8) Stroke CVA mechanism: embolism Precerebral and cerebral artery: other cerebral artery Qualified Code(s): I63.49 - Cerebral infarction due to embolism of other cerebral artery
[2021-07-06] MEDS: rOPINIRole HCL 1 MG TABLET PO SCH (20:38)
[2021-07-06] MEDS: METOPROLOL SUCC 25MG EXT REL TAB PO SCH (20:38)
[2021-07-07 06:34] LABS: Basophils # (auto) 0.02 K/uL (0-0.2); Basophils % (auto) 0.2 %; Eosinophils # (auto) 0.18 K/uL (0-0.5); Eosinophils % (auto) 2.1 %; Hemoglobin 13.9 g/dL (14.0-18.0); Immature Granulocytes # (auto) 0.02 K/uL (0.00-0.02); Immature Granulocytes % (auto) 0.2 %; Lymphocytes # (auto) 1.48 K/uL (1.2-3.4); Lymphocytes % (auto) 16.9 %; Mean Corpuscular Hemoglobin 31.4 pg (25-34); Mean Corpuscular Hgb Conc 34.8 g/dL (32-36); Mean Corpuscular Volume 90.3 fL (80-100); Monocytes # (auto) 0.69 K/uL (0.11-0.59); Monocytes % (auto) 7.9 %; Neutrophils # (auto) 6.36 K/uL (1.4-6.5); Neutrophils % (auto) 72.7 %; Platelet Count 161 K/uL (130-400); RDW Coefficient of Variation 12.7 % (11.5-14.5); RDW Standard Deviation 41.9 fL (36.4-46.3); Red Blood Count 4.43 M/uL (4.7-6.1); White Blood Count 8.75 K/uL (4.8-10.8)
[2021-07-07 06:55] LABS: BUN Creatinine Ratio 19.8 (10-20); Est GFR (African American) 50.8 ml/min; Est GFR (Non-African American) 43.8 ml/min; Potassium 3.9 mmol/L (3.5-5.1)
[2021-07-07] MEDS: ACETAMINOPHEN 325 MG TAB PO PRN ×2 (07:43→23:35)
[2021-07-07] MEDS: FLUoxetine HCL 20 MG CAP PO SCH (09:17)
[2021-07-07] MEDS: PANTOprazole 40 MG TAB PO SCH ×2 (09:17→19:45)
[2021-07-07] MEDS: EZETIMIBE 10 MG TABLET PO SCH (09:17)
[2021-07-07] MEDS: lisinopril 10 MG TAB PO SCH (09:17)
[2021-07-07] MEDS: APIXABAN 5 MG TABLET PO SCH ×2 (09:17→19:45)
[2021-07-07] MEDS: VITAMIN B COMPLEX TAB PO SCH (09:18)
[2021-07-07] MEDS: ASPIRIN 81 MG ECTAB PO SCH (09:18)
[2021-07-07] MEDS: FENOFIBRATE NANOCRYSTALLIZED 48 MG TABLET PO SCH (09:18)
[2021-07-07] MEDS: CLOPIDOGREL BISULFATE 75 MG TAB PO SCH (09:19)
--- NOTE | 2021-07-07 10:26 | Hospitalist Progress Note ---
Date of Service July 07, 2021 Assessment & Plan (1) Diarrhea: Plan: Shailesh Antonio is a 75 yo male with PMHx significant for CKD3 (Cr 1.7 - 1.8), CAD s/p CABG x3, and h/o CVA 6 months ago (with residual L-sided deficits, returned from rehab the day before admission) who was admitted to [facility] on 07/04 for diarrhea and weight loss. Diarrhea, Weight Loss Symptoms most likely due to viral GI illness. Overall weight loss likely also due to chronic deconditioning in setting of CABG and CVA in the last 9 months. Bacterial illness unlikely given negative c-diff toxin and negative stool culture. Malignancy unlikely given unremarkable CT A/P. - Appetite improving since admission, diarrhea resolved - c-diff toxin negative (gene positive), stool cultures no growth to date - FOBT negative, last Colonoscopy in 2017 (several polyps removed) - CT head unremarkable - CT A/P with no acute findings - encourage PO intake Chronic Deconditioning In setting of last CABG ~9 months ago and debilitating CVA 6 months ago, with prolonged course of rehab. Likely contributing to weight loss as stated above. - PT/OT consulted - recommend acute rehab on discharge - CM consulted to assist with disposition planning Left Renal Artery Stenosis Severe stenosis, decreased perfusion of kidney and associated severe atrophy. CKDIII as stated below; this likely is contributing. - sees Dr. Mercado as outpatient; recommend f/u with him in 1-2 weeks to address this CKDIII Baseline Cr 1.7 - 1.8. Currently better than baseline. - continue to monitor kidney function daily Atrial Fibrillation Chronic. Rate controlled on Metoprolol. Anticoagulated on Eliquis - Continue Eliquis and Metoprolol HTN - continue home Toprol XL and Lisinopril GERD - continue Pepcid H/o CVA Patient with recent CVA and left sided deficits. -Continue ASA, Plavix -Continue Zetia Right Buttock Pressure Ulcer - wound care consulted RLS Chronic. Symptoms adequately controlled with increased Ropinorole dose. - Continue Ropinirole 1mg PO QHS Depression Chronic. - Continue Fluoxetine FEN/GI: Heart-healthy/DM2 diet DVT Prophylaxis: Eliquis Code Status: full code Disposition: med/surg (2) Physical deconditioning: (3) HTN (hypertension): (4) GERD (gastroesophageal reflux disease): (5) Atrial fibrillation: (6) Stroke: (7) Pressure ulcer of right buttock: (8) Restless leg syndrome: (9) CKD (chronic kidney disease) stage 3, GFR 30-59 ml/min: (10) Depression: Admission and Anticipated Discharge Date Admission Date: July 04, 2021 Supervising Physician Co-Signing Physician Notes I personally examined the patient and verified all morrison points of history and exam, discussed case, and agree with decision making with Dr Melgar No new complaints. Waiting on rehab placement. Vitals noted, in general he is awake and alert pleasant no distress. HEENT normocephalic atraumatic mucous membranes moist. Breathing unlabored no accessory muscle use good effort. Skin shows no rashes no pallor or icterus. Eating well. Acute on chronic deconditioning and overall weight loss/weaknessongoing PT/OT eval and treat, will need rehab. Otherwise as above. Subjective No acute events overnight. Reports that diarrhea has resolved and has had no BMs for ~2 days. No N/V or abdominal pain. Appetite continues to improve; improving overall. Amenable to rehab. Denies fever/chills, chest pain, palpitations, cough, SOB, rash. Review of Systems Review of Systems: All systems reviewed & are unremarkable except as noted in HPI & below Physical Exam Physical Exam: General: A&Ox3. NAD. Cooperative. HEENT: Atraumatic, normocephalic. Pulm: CTAB A&P. -wheezes, -rales, -rhonchi. Symmetrical chest rise. No increase work of breathing. No respiratory distress. Cardiac: RRR, -mrg. Radial pulses intact and symmetrical. Abdominal: soft, non-tender, non-distended, BS x 4 Skin: warm, dry, no rash Results & Data Results & Data ([facility]) Vital Signs (Past 12 Hours) Vital Signs Temp Pulse Resp BP Pulse Ox 07/07/21 07:23 36.4 C L 69 16 152/84 H 97 07/06/21 23:00 36.8 C 73 18 115/75 97 Resident Activity Tracking Resident Involvement: Resident Care Provided Care Provided: Adult Hospital Medicine (1) Pressure ulcer of right buttock Pressure injury stage: unspecified pressure injury stage Qualified Code(s): L89.319 - Pressure ulcer of right buttock, unspecified stage (2) CKD (chronic kidney disease) stage 3, GFR 30-59 ml/min Chronic kidney disease stage 3 subtype: unspecified whether 3a or 3b Qualified Code(s): N18.30 - Chronic kidney disease, stage 3 unspecified (3) Atrial fibrillation Atrial fibrillation type: paroxysmal Qualified Code(s): I48.0 - Paroxysmal atrial fibrillation (4) Depression Depression Type: unspecified Qualified Code(s): F32.9 - Major depressive disorder, single episode, unspecified (5) Diarrhea Diarrhea type: unspecified type Qualified Code(s): R19.7 - Diarrhea, unspecified (6) GERD (gastroesophageal reflux disease) Esophagitis presence: esophagitis presence not specified Qualified Code(s): K21.9 - Gastro-esophageal reflux disease without esophagitis (7) HTN (hypertension) Hypertension type: essential hypertension Qualified Code(s): I10 - Essential (primary) hypertension (8) Stroke CVA mechanism: embolism Precerebral and cerebral artery: other cerebral artery Qualified Code(s): I63.49 - Cerebral infarction due to embolism of other cerebral artery
--- NOTE | 2021-07-07 18:55 | Billing Data ---
Date of Service July 07, 2021 Coding Level of Care Code 81940 Subseq Hosp Care Lvl 1
[2021-07-07] MEDS: rOPINIRole HCL 1 MG TABLET PO SCH (19:45)
[2021-07-07] MEDS: METOPROLOL SUCC 25MG EXT REL TAB PO SCH (19:45)
[2021-07-08 06:54] LABS: Basophils # (auto) 0.04 K/uL (0-0.2); Basophils % (auto) 0.5 %; Eosinophils # (auto) 0.16 K/uL (0-0.5); Hematocrit (blood only) 40.8 % (42-52); Hemoglobin 13.9 g/dL (14.0-18.0); Immature Granulocytes # (auto) 0.03 K/uL (0.00-0.02); Immature Granulocytes % (auto) 0.4 %; Lymphocytes # (auto) 1.83 K/uL (1.2-3.4); Lymphocytes % (auto) 23.2 %; Mean Corpuscular Hemoglobin 31.1 pg (25-34); Mean Corpuscular Hgb Conc 34.1 g/dL (32-36); Mean Corpuscular Volume 91.3 fL (80-100); Mean Platelet Volume 12.1 fL (7.4-10.4); Monocytes # (auto) 0.62 K/uL (0.11-0.59); Monocytes % (auto) 7.8 %; Neutrophils # (auto) 5.22 K/uL (1.4-6.5); Neutrophils % (auto) 66.1 %; Platelet Count 169 K/uL (130-400); RDW Standard Deviation 43.4 fL (36.4-46.3); Red Blood Count 4.47 M/uL (4.7-6.1)
[2021-07-08 07:11] LABS: BUN Creatinine Ratio 19.7 (10-20); Calcium 9.1 mg/dl (8.5-10.1); Creatinine Clr Calc Pharmacy 37.3 ml/min; Est GFR (African American) 48.1 ml/min; Est GFR (Non-African American) 41.5 ml/min; Magnesium 2.1 mg/dl (1.8-2.4)
[2021-07-08] MEDS: APIXABAN 5 MG TABLET PO SCH ×2 (08:14→19:44)
[2021-07-08] MEDS: FLUoxetine HCL 20 MG CAP PO SCH (08:14)
[2021-07-08] MEDS: EZETIMIBE 10 MG TABLET PO SCH (08:14)
[2021-07-08] MEDS: FENOFIBRATE NANOCRYSTALLIZED 48 MG TABLET PO SCH (08:14)
[2021-07-08] MEDS: ASPIRIN 81 MG ECTAB PO SCH (08:14)
[2021-07-08] MEDS: CLOPIDOGREL BISULFATE 75 MG TAB PO SCH (08:14)
[2021-07-08] MEDS: PANTOprazole 40 MG TAB PO SCH ×2 (08:15→19:45)
[2021-07-08] MEDS: lisinopril 10 MG TAB PO SCH (08:16)
[2021-07-08] MEDS: VITAMIN B COMPLEX TAB PO SCH (08:18)
[2021-07-08] MEDS ORDERED: POLYETHYLENE (MIRALAX) 17 GM PACK PO STA (08:35)
[2021-07-08] MEDS ORDERED: POLYETHYLENE (MIRALAX) 17 GM PACK PO PRN (08:35)
--- NOTE | 2021-07-08 08:37 | Hospitalist Progress Note ---
Date of Service July 08, 2021 Assessment & Plan (1) Diarrhea: Plan: Shailesh Antonio is a 75 yo male with PMHx significant for CKD3 (Cr 1.7 - 1.8), CAD s/p CABG x3, and h/o CVA 6 months ago (with residual L-sided deficits, returned from rehab the day before admission) who was admitted to [facility] on 07/04 for diarrhea and weight loss. Diarrhea, resolved; Weight Loss Symptoms most likely due to viral GI illness. Overall weight loss likely also due to chronic deconditioning in setting of CABG and CVA in the last 9 months. Bacterial illness unlikely given negative c-diff toxin and negative stool culture. Malignancy unlikely given unremarkable CT A/P. - Appetite improving since admission, diarrhea resolved - c-diff toxin negative (gene positive), stool cultures no growth to date - FOBT negative, last Colonoscopy in 2016 (several polyps removed) - CT head unremarkable - CT A/P with no acute findings - encourage PO intake Chronic Deconditioning In setting of last CABG ~9 months ago and debilitating CVA 6 months ago, with prolonged course of rehab. Likely contributing to weight loss as stated above. - PT/OT consulted - recommend acute rehab - CM consulted - referral made to [facility] and pending Left Renal Artery Stenosis Severe stenosis, decreased perfusion of kidney and associated severe atrophy. CKDIII as stated below; this likely is contributing. - sees Dr. Mercado as outpatient; recommend f/u with him in 1-2 weeks to address this CKDIII Baseline Cr 1.7 - 1.8. Currently better than baseline. - continue to monitor kidney function daily Atrial Fibrillation Chronic. Rate controlled on Metoprolol. Anticoagulated on Eliquis. - Continue Eliquis and Metoprolol HTN - continue home Toprol XL and Lisinopril GERD - continue Pepcid H/o CVA Patient with recent CVA and left sided deficits. - Continue ASA, Plavix - Continue Zetia Right Buttock Pressure Ulcer - wound care consulted RLS Chronic. Symptoms adequately controlled with increased Ropinirole dose. - Continue Ropinirole 1mg PO QHS Depression Chronic. - Continue Fluoxetine FEN/GI: Heart-healthy/DM2 diet DVT Prophylaxis: Eliquis Code Status: full code Disposition: med/surg, referral made to [facility] - pending (2) Physical deconditioning: (3) HTN (hypertension): (4) GERD (gastroesophageal reflux disease): (5) Atrial fibrillation: (6) Stroke: (7) Pressure ulcer of right buttock: (8) Restless leg syndrome: (9) CKD (chronic kidney disease) stage 3, GFR 30-59 ml/min: (10) Depression: Admission and Anticipated Discharge Date Admission Date: July 04, 2021 Supervising Physician Co-Signing Physician Notes I personally examined the patient and verified all morrison points of history and exam, discussed case, and agree with decision making with Dr Melgar No new complaints. Still waiting on rehab placement. Vitals noted, in general he is awake and alert pleasant no distress. HEENT normocephalic atraumatic mucous membranes moist. Breathing unlabored no accessory muscle use good effort. Skin shows no rashes no pallor or icterus. Eating well. Acute on chronic deconditioning and overall weight loss/weakness acutely brought on by viral gastroenteritis, chronic weakness largely relating back to deconditioning from bypass surgery, as well as left-sided hemiplegia following CVA, compounded by may be mild protein calorie malnutritionongoing PT/OT eval and treat, will need rehab. Otherwise as above. Subjective No acute events overnight. Reports that diarrhea has resolved and has had no BMs for ~3 days. Passing gas. No N/V or abdominal pain. Appetite continues to improve; improving overall. Amenable to rehab. Denies fever/chills, chest pain, palpitations, cough, SOB, rash. Review of Systems Review of Systems: All systems reviewed & are unremarkable except as noted in HPI & below Physical Exam Physical Exam: General: A&Ox3. NAD. Cooperative. HEENT: Atraumatic, normocephalic. Pulm: CTAB A&P. -wheezes, -rales, -rhonchi. Symmetrical chest rise. No increase work of breathing. No respiratory distress. Cardiac: RRR, -mrg. Radial pulses intact and symmetrical. Abdominal: soft, non-tender, non-distended, BS x 4 Skin: warm, dry, no rash Results & Data Results & Data ([facility]) Vital Signs (Past 12 Hours) Vital Signs Temp Pulse Pulse Resp BP Pulse Ox 07/08/21 08:17 59 L 136/81 07/08/21 00:05 36.3 C L 78 16 103/61 98 Resident Activity Tracking Resident Involvement: Resident Care Provided Care Provided: Adult Hospital Medicine (1) Pressure ulcer of right buttock Pressure injury stage: unspecified pressure injury stage Qualified Code(s): L89.319 - Pressure ulcer of right buttock, unspecified stage (2) CKD (chronic kidney disease) stage 3, GFR 30-59 ml/min Chronic kidney disease stage 3 subtype: unspecified whether 3a or 3b Qualified Code(s): N18.30 - Chronic kidney disease, stage 3 unspecified (3) Atrial fibrillation Atrial fibrillation type: paroxysmal Qualified Code(s): I48.0 - Paroxysmal atrial fibrillation (4) Depression Depression Type: unspecified Qualified Code(s): F32.9 - Major depressive disorder, single episode, unspecified (5) Diarrhea Diarrhea type: unspecified type Qualified Code(s): R19.7 - Diarrhea, unspecified (6) GERD (gastroesophageal reflux disease) Esophagitis presence: esophagitis presence not specified Qualified Code(s): K21.9 - Gastro-esophageal reflux disease without esophagitis (7) HTN (hypertension) Hypertension type: essential hypertension Qualified Code(s): I10 - Essential (primary) hypertension (8) Stroke CVA mechanism: embolism Precerebral and cerebral artery: other cerebral artery Qualified Code(s): I63.49 - Cerebral infarction due to embolism of other cerebral artery
--- NOTE | 2021-07-08 18:29 | Billing Data ---
Date of Service July 08, 2021 Coding Level of Care Code 05551 Subseq Hosp Care Lvl 1
[2021-07-08] MEDS: rOPINIRole HCL 1 MG TABLET PO SCH (19:45)
[2021-07-08] MEDS: METOPROLOL SUCC 25MG EXT REL TAB PO SCH (19:45)
[2021-07-09 07:34] LABS: BUN Creatinine Ratio 16.6 (10-20); Calcium 9.4 mg/dl (8.5-10.1); Creatinine Clr Calc Pharmacy 36.8 ml/min; Est GFR (African American) 47.4 ml/min; Est GFR (Non-African American) 40.9 ml/min; Magnesium 2.1 mg/dl (1.8-2.4); Potassium 3.9 mmol/L (3.5-5.1)
[2021-07-09] MEDS: CLOPIDOGREL BISULFATE 75 MG TAB PO SCH (08:56)
[2021-07-09] MEDS: APIXABAN 5 MG TABLET PO SCH ×2 (08:56→20:50)
[2021-07-09] MEDS: PANTOprazole 40 MG TAB PO SCH ×2 (08:56→20:50)
[2021-07-09] MEDS: EZETIMIBE 10 MG TABLET PO SCH (08:56)
[2021-07-09] MEDS: FENOFIBRATE NANOCRYSTALLIZED 48 MG TABLET PO SCH (08:56)
[2021-07-09] MEDS: ASPIRIN 81 MG ECTAB PO SCH (08:56)
[2021-07-09] MEDS: lisinopril 10 MG TAB PO SCH (08:56)
[2021-07-09] MEDS: VITAMIN B COMPLEX TAB PO SCH (08:56)
[2021-07-09] MEDS: FLUoxetine HCL 20 MG CAP PO SCH (08:57)
--- NOTE | 2021-07-09 09:15 | Hospitalist Progress Note ---
Date of Service July 09, 2021 Assessment & Plan (1) Diarrhea: Plan: Shailesh Antonio is a 75 yo male with PMHx significant for CKD3 (Cr 1.7 - 1.8), CAD s/p CABG x3, and h/o CVA 6 months ago (with residual L-sided deficits, returned from rehab the day before admission) who was admitted to [facility] on 07/04 for diarrhea and weight loss. Diarrhea, resolved; Weight Loss Symptoms most likely due to viral GI illness. Overall weight loss likely also due to chronic deconditioning in setting of CABG and CVA in the last 9 months. Bacterial illness unlikely given negative c-diff toxin and negative stool culture. Malignancy unlikely given unremarkable CT A/P. - Appetite improving since admission, diarrhea resolved - c-diff toxin negative (gene positive), stool cultures no growth to date - FOBT negative, last Colonoscopy in 2017 (several polyps removed) - CT head unremarkable - CT A/P with no acute findings - encourage PO intake - delivery consultant consulted - appreciate recs Chronic Deconditioning In setting of last CABG ~9 months ago and debilitating CVA 6 months ago, with prolonged course of rehab. Likely contributing to weight loss as stated above. - PT/OT consulted - recommend acute rehab - CM consulted - referral made to [facility] and pending Left Renal Artery Stenosis Severe stenosis, decreased perfusion of kidney and associated severe atrophy. CKDIII as stated below; this likely is contributing. - sees Dr. Mercado as outpatient; recommend f/u with him in 1-2 weeks to address this CKDIII Baseline Cr 1.7 - 1.8. Currently better than baseline. - continue to monitor kidney function daily Atrial Fibrillation Chronic. Rate controlled on Metoprolol. Anticoagulated on Eliquis. - Continue Eliquis and Metoprolol HTN - continue home Toprol XL and Lisinopril GERD - continue Pepcid H/o CVA Patient with recent CVA and residual left sided deficits. - Continue ASA, Plavix - Continue Zetia Right Buttock Pressure Ulcer - wound care consulted to manage, no signs cellulitis RLS Chronic. Symptoms adequately controlled with increased Ropinirole dose. - Continue Ropinirole 1mg PO QHS Depression Chronic. - Continue Fluoxetine FEN/GI: Heart-healthy/DM2 diet DVT Prophylaxis: Eliquis Code Status: full code Disposition: med/surg, referral made to [facility] - pending (2) Physical deconditioning: (3) HTN (hypertension): (4) GERD (gastroesophageal reflux disease): (5) Atrial fibrillation: (6) Stroke: (7) Pressure ulcer of right buttock: (8) Restless leg syndrome: (9) CKD (chronic kidney disease) stage 3, GFR 30-59 ml/min: (10) Depression: Admission and Anticipated Discharge Date Admission Date: July 04, 2021 Supervising Physician Co-Signing Physician Notes I personally examined the patient and verified all morrison points of history and exam, discussed case, and agree with decision making with Dr Melgar Sleeping comfortably. Discussed with case managementthey are having to cast a wider net for placement options. Vitals noted, resting comfortably no distress. HEENT normocephalic atraumatic. Breathing unlabored no accessory muscle use good effort. Skin shows no rashes no pallor or icterus. Eating well. Acute on chronic deconditioning and overall weight loss/weakness acutely brought on by viral gastroenteritis, chronic weakness largely relating back to deconditioning from bypass surgery, as well as left-sided hemiplegia following CVA, compounded by may be mild protein calorie malnutritionongoing PT/OT eval and treat, will need rehab/subacute rehab, but placement has been difficult. Otherwise as above. Subjective No acute events overnight. Diarrhea resolved x4 days, had formed BM yesterday. No N/V or abdominal pain. Appetite continues to improve; improving overall. Amenable to rehab. Denies fever/chills, chest pain, palpitations, cough, SOB, rash. Review of Systems Review of Systems: All systems reviewed & are unremarkable except as noted in HPI & below Physical Exam Physical Exam: General: A&Ox3. NAD. Cooperative. HEENT: Atraumatic, normocephalic. Pulm: CTAB A&P. -wheezes, -rales, -rhonchi. Symmetrical chest rise. No increase work of breathing. No respiratory distress. Cardiac: RRR, -mrg. Radial pulses intact and symmetrical. Abdominal: soft, non-tender, non-distended, BS x 4 Skin: warm, dry, no rash Results & Data Results & Data ([facility]) Vital Signs (Past 12 Hours) Vital Signs Temp Pulse Pulse Resp BP Pulse Ox 07/09/21 07:46 36.5 C 58 L 16 121/74 99 07/08/21 23:00 36.5 C 65 18 122/78 97 Resident Activity Tracking Resident Involvement: Resident Care Provided Care Provided: Adult Hospital Medicine (1) Pressure ulcer of right buttock Pressure injury stage: unspecified pressure injury stage Qualified Code(s): L89.319 - Pressure ulcer of right buttock, unspecified stage (2) CKD (chronic kidney disease) stage 3, GFR 30-59 ml/min Chronic kidney disease stage 3 subtype: unspecified whether 3a or 3b Qualified Code(s): N18.30 - Chronic kidney disease, stage 3 unspecified (3) Atrial fibrillation Atrial fibrillation type: paroxysmal Qualified Code(s): I48.0 - Paroxysmal atrial fibrillation (4) Depression Depression Type: unspecified Qualified Code(s): F32.9 - Major depressive disorder, single episode, unspecified (5) Diarrhea Diarrhea type: unspecified type Qualified Code(s): R19.7 - Diarrhea, unspecified (6) GERD (gastroesophageal reflux disease) Esophagitis presence: esophagitis presence not specified Qualified Code(s): K21.9 - Gastro-esophageal reflux disease without esophagitis (7) HTN (hypertension) Hypertension type: essential hypertension Qualified Code(s): I10 - Essential (primary) hypertension (8) Stroke CVA mechanism: embolism Precerebral and cerebral artery: other cerebral artery Qualified Code(s): I63.49 - Cerebral infarction due to embolism of other cerebral artery
--- NOTE | 2021-07-09 16:57 | Billing Data ---
Date of Service July 09, 2021 Coding Level of Care Code 72995 Subseq Hosp Care Lvl 1
[2021-07-09] MEDS: MIRTAZAPINE TAB 15 MG TAB PO SCH (20:49)
[2021-07-09] MEDS: METOPROLOL SUCC 25MG EXT REL TAB PO SCH (20:50)
[2021-07-09] MEDS: rOPINIRole HCL 1 MG TABLET PO SCH (20:51)
[2021-07-10] MEDS: ACETAMINOPHEN 325 MG TAB PO PRN (06:28)
[2021-07-10 06:51] LABS: BUN Creatinine Ratio 18.7 (10-20); Calcium 9.2 mg/dl (8.5-10.1); Creatinine Clr Calc Pharmacy 35.9 ml/min; Est GFR (Non-African American) 39.7 ml/min; Magnesium 2.1 mg/dl (1.8-2.4); Potassium 3.8 mmol/L (3.5-5.1)
[2021-07-10] MEDS: lisinopril 10 MG TAB PO SCH (09:41)
[2021-07-10] MEDS: VITAMIN B COMPLEX TAB PO SCH (09:41)
[2021-07-10] MEDS: CLOPIDOGREL BISULFATE 75 MG TAB PO SCH (09:41)
[2021-07-10] MEDS: FENOFIBRATE NANOCRYSTALLIZED 48 MG TABLET PO SCH (09:41)
[2021-07-10] MEDS: FLUoxetine HCL 20 MG CAP PO SCH (09:41)
[2021-07-10] MEDS: APIXABAN 5 MG TABLET PO SCH ×2 (09:42→21:00)
[2021-07-10] MEDS: EZETIMIBE 10 MG TABLET PO SCH (09:42)
[2021-07-10] MEDS: PANTOprazole 40 MG TAB PO SCH ×2 (09:42→21:01)
[2021-07-10] MEDS: ASPIRIN 81 MG ECTAB PO SCH (09:43)
--- NOTE | 2021-07-10 10:14 | Hospitalist Progress Note ---
Date of Service July 10, 2021 Assessment & Plan (1) Diarrhea: Plan: Shailesh Antonio is a 75 yo male with PMHx significant for CKD3 (Cr 1.7 - 1.8), CAD s/p CABG x3, and h/o CVA 6 months ago (with residual L-sided deficits, returned from rehab the day before admission) who was admitted to [facility] on 07/04 for diarrhea and weight loss. Diarrhea, resolved; Weight Loss Symptoms most likely due to viral GI illness. Overall weight loss likely also due to chronic deconditioning in setting of CABG and CVA in the last 9 months. Bacterial illness unlikely given negative c-diff toxin and negative stool culture. Malignancy unlikely given unremarkable CT A/P. - Appetite improving since admission, diarrhea resolved - c-diff toxin negative (gene positive), stool cultures no growth to date - FOBT negative, last Colonoscopy in 2016 (several polyps removed) - CT head unremarkable - CT A/P with no acute findings - encourage PO intake - bar tacker consulted - appreciate recs - added nightly Mirtazapine 15mg to assist with appetite Chronic Deconditioning In setting of last CABG ~9 months ago and debilitating CVA 6 months ago, with prolonged course of rehab. Likely contributing to weight loss as stated above. - PT/OT consulted - recommend acute rehab - CM consulted - referrals made and pending Left Renal Artery Stenosis Severe stenosis, decreased perfusion of kidney and associated severe atrophy. CKDIII as stated below; this likely is contributing. - sees Dr. Mercado as outpatient; recommend f/u with him in 1-2 weeks to address this CKDIII Baseline Cr 1.7 - 1.8. Currently better than baseline. - continue to monitor kidney function daily Atrial Fibrillation Chronic. Rate controlled on Metoprolol. Anticoagulated on Eliquis. - Continue Eliquis and Metoprolol HTN - continue home Toprol XL and Lisinopril GERD - continue Pepcid H/o CVA Patient with recent CVA and residual left sided deficits. - Continue ASA, Plavix - Continue Zetia Right Buttock Pressure Ulcer - wound care consulted to manage, no signs cellulitis RLS Chronic. Symptoms adequately controlled with increased Ropinirole dose. - Continue Ropinirole 1mg PO QHS Depression Chronic. - Continue Fluoxetine FEN/GI: Heart-healthy/DM2 diet DVT Prophylaxis: Eliquis Code Status: full code Disposition: med/surg, referrals made and pending (2) Physical deconditioning: (3) HTN (hypertension): (4) GERD (gastroesophageal reflux disease): (5) Atrial fibrillation: (6) Stroke: (7) Pressure ulcer of right buttock: (8) Restless leg syndrome: (9) CKD (chronic kidney disease) stage 3, GFR 30-59 ml/min: (10) Depression: Admission and Anticipated Discharge Date Admission Date: July 04, 2021 Supervising Physician Co-Signing Physician Notes I personally examined the patient and verified all morrison points of history and exam, discussed case, and agree with decision making with Dr Melgar Went to see patient twice today, first time he was getting cleaned up, second time sleeping comfortably. No new issues have arisen, unfortunately still waiting on placement. Vitals noted, resting comfortably no distress. HEENT normocephalic atraumatic. Breathing unlabored no accessory muscle use good effort. Skin shows no rashes no pallor or icterus. Eating well. Acute on chronic deconditioning and overall weight loss/weakness acutely brought on by viral gastroenteritis, chronic weakness largely relating back to deconditioning from bypass surgery, as well as left-sided hemiplegia following CVA, compounded by may be mild protein calorie malnutritionongoing PT/OT eval and treat, will need rehab/subacute rehab, but placement has been difficult. Otherwise as above. Subjective No acute events overnight. Diarrhea resolved x4 days, had formed BM yesterday. No N/V or abdominal pain. Appetite continues to improve; improving overall. Amenable to rehab. Denies fever/chills, chest pain, palpitations, cough, SOB, rash. Review of Systems Review of Systems: All systems reviewed & are unremarkable except as noted in HPI & below Physical Exam Physical Exam: General: A&Ox3. NAD. Cooperative. HEENT: Atraumatic, normocephalic. Pulm: CTAB A&P. -wheezes, -rales, -rhonchi. Symmetrical chest rise. No increase work of breathing. No respiratory distress. Cardiac: RRR, -mrg. Radial pulses intact and symmetrical. Abdominal: soft, non-tender, non-distended, BS x 4 Skin: warm, dry, no rash Results & Data Results & Data ([facility]) Vital Signs (Past 12 Hours) Vital Signs Temp Pulse Resp BP Pulse Ox 07/10/21 08:55 36.5 C 75 18 116/74 97 07/10/21 00:44 36.4 C L 80 20 155/98 H 97 Resident Activity Tracking Resident Involvement: Resident Care Provided Care Provided: Adult Hospital Medicine (1) Pressure ulcer of right buttock Pressure injury stage: unspecified pressure injury stage Qualified Code(s): L89.319 - Pressure ulcer of right buttock, unspecified stage (2) CKD (chronic kidney disease) stage 3, GFR 30-59 ml/min Chronic kidney disease stage 3 subtype: unspecified whether 3a or 3b Qualified Code(s): N18.30 - Chronic kidney disease, stage 3 unspecified (3) Atrial fibrillation Atrial fibrillation type: paroxysmal Qualified Code(s): I48.0 - Paroxysmal atrial fibrillation (4) Depression Depression Type: unspecified Qualified Code(s): F32.9 - Major depressive disorder, single episode, unspecified (5) Diarrhea Diarrhea type: unspecified type Qualified Code(s): R19.7 - Diarrhea, unspecified (6) GERD (gastroesophageal reflux disease) Esophagitis presence: esophagitis presence not specified Qualified Code(s): K21.9 - Gastro-esophageal reflux disease without esophagitis (7) HTN (hypertension) Hypertension type: essential hypertension Qualified Code(s): I10 - Essential (primary) hypertension (8) Stroke CVA mechanism: embolism Precerebral and cerebral artery: other cerebral artery Qualified Code(s): I63.49 - Cerebral infarction due to embolism of other cerebral artery
--- NOTE | 2021-07-10 16:51 | Billing Data ---
Date of Service July 10, 2021 Coding Level of Care Code 66190 Subseq Hosp Care Lvl 1
[2021-07-10] MEDS: rOPINIRole HCL 1 MG TABLET PO SCH (21:00)
[2021-07-10] MEDS: MIRTAZAPINE TAB 15 MG TAB PO SCH (21:01)
[2021-07-10] MEDS: METOPROLOL SUCC 25MG EXT REL TAB PO SCH (21:01)
[2021-07-11 06:51] LABS: BUN Creatinine Ratio 23.3 (10-20); Calcium 9.5 mg/dl (8.5-10.1); Creatinine Clr Calc Pharmacy 35.1 ml/min; Est GFR (African American) 44.7 ml/min; Est GFR (Non-African American) 38.6 ml/min; Magnesium 2.2 mg/dl (1.8-2.4)
--- NOTE | 2021-07-11 07:33 | Hospitalist Progress Note ---
Date of Service July 11, 2021 Assessment & Plan (1) Diarrhea: Plan: Shailesh Antonio is a 75 yo male with PMHx significant for CKD3 (Cr 1.7 - 1.8), CAD s/p CABG x3, and h/o CVA 6 months ago (with residual L-sided deficits, returned from rehab the day before admission) who was admitted to [facility] on 07/04 for diarrhea and weight loss. Diarrhea, resolved; Weight Loss Symptoms most likely due to viral GI illness. Overall weight loss likely also due to chronic deconditioning in setting of CABG and CVA in the last 9 months. Bacterial illness unlikely given negative c-diff toxin and negative stool culture. Malignancy unlikely given unremarkable CT A/P. - Appetite improving since admission, diarrhea resolved - c-diff toxin negative (gene positive), stool cultures no growth to date - FOBT negative, last Colonoscopy in 2016 (several polyps removed) - CT head unremarkable - CT A/P with no acute findings - encourage PO intake - sole splitter consulted - appreciate recs - continue nightly Mirtazapine 15mg to assist with appetite Chronic Deconditioning In setting of last CABG ~9 months ago and debilitating CVA 6 months ago, with prolonged course of rehab. Likely contributing to weight loss as stated above. - PT/OT consulted - recommend acute rehab - CM consulted - referrals made and pending Left Renal Artery Stenosis Severe stenosis, decreased perfusion of kidney and associated severe atrophy. CKDIII as stated below; this likely is contributing. - sees Dr. Mercado as outpatient; recommend f/u with him in 1-2 weeks to address this CKDIII Baseline Cr 1.7 - 1.8. Currently at baseline. - continue to monitor daily while hospitalized Atrial Fibrillation Chronic. Rate controlled on Metoprolol. Anticoagulated on Eliquis. - Continue Eliquis and Metoprolol HTN - continue home Toprol XL and Lisinopril GERD - continue Pepcid H/o CVA Patient with recent CVA and residual left sided deficits. - Continue ASA, Plavix - Continue Zetia Right Buttock Pressure Ulcer - wound care consulted to manage, no signs cellulitis RLS Chronic. Symptoms adequately controlled with increased Ropinirole dose. - Continue Ropinirole 1mg PO QHS Depression Chronic. - Continue Fluoxetine FEN/GI: Heart-healthy/DM2 diet DVT Prophylaxis: Eliquis Code Status: full code Disposition: med/surg, referrals made and pending (2) Physical deconditioning: (3) HTN (hypertension): (4) GERD (gastroesophageal reflux disease): (5) Atrial fibrillation: (6) Stroke: (7) Pressure ulcer of right buttock: (8) Restless leg syndrome: (9) CKD (chronic kidney disease) stage 3, GFR 30-59 ml/min: (10) Depression: Admission and Anticipated Discharge Date Admission Date: July 04, 2021 Supervising Physician Co-Signing Physician Notes I personally examined the patient and verified all morrison points of history and exam, discussed case, and agree with decision making with Dr Melgar Main acute complaint is that he is having left sided leg spasms and contracturesflexing at the hip involuntarily, at times it is uncomfortable, at other times its inconvenient (1 time his leg spontaneously kicked up and knocked his urine drug while he was trying to void). No other new complaints. Vitals noted, in general he is awake and alert pleasant no distress. HEENT normocephalic atraumatic mucous membranes moist. Breathing unlabored no accessory muscle use good effort. Skin shows no rashes no pallor or icterus. Musculoskeletal/osteopathic shows left sided hip flexor regionpiriformis, as well as most of his left quadriceps muscle high in tone, psoas region tender, quad not, decreased range of motioncounterstrain to psoas region, LAS to quadwith improvement in symptoms/tissue texture. He has maybe 1 out of 5 strength with voluntary flexion of his left leg, probably 2 to maybe 3 out of 5 with extension. Acute on chronic deconditioning and overall weight loss/weakness acutely brought on by viral gastroenteritis, chronic weakness largely relating back to deconditioning from bypass surgery, as well as left-sided hemiplegia following CVA, compounded by may be mild protein calorie malnutritionongoing PT/OT eval and treat, will need rehab/subacute rehab, but placement has been difficult. Stable to transfer when this is approved/available, otherwise as above. Left leg spasmsrelated to stroke weakness. Suspect the spasms are getting worse because he is getting more deconditioned while we have him in the hospital waiting on rehab. Suspect more therapy would help with this. In the meantime, trial of OMT to try to loosen the muscles, so that hopefully they will be less intrinsically spastic. Somatic dysfunction left leg/pelvisOMT as above. Otherwise as above Subjective No acute events overnight. No N/V, diarrhea, or abdominal pain. Appetite improving; improving overall. Amenable to rehab. Denies fever/chills, chest pain, palpitations, cough, SOB, rash. Review of Systems Review of Systems: All systems reviewed & are unremarkable except as noted in HPI & below Physical Exam Physical Exam: General: A&Ox3. NAD. Cooperative. HEENT: Atraumatic, normocephalic. Pulm: CTAB A&P. -wheezes, -rales, -rhonchi. Symmetrical chest rise. No increase work of breathing. No respiratory distress. Cardiac: RRR, -mrg. Radial pulses intact and symmetrical. Abdominal: soft, non-tender, non-distended, BS x 4 Skin: warm, dry, no rash Results & Data Results & Data ([facility]) Vital Signs (Past 12 Hours) Vital Signs Temp Pulse Resp BP Pulse Ox 07/11/21 06:14 36.3 C L 71 16 122/80 97 07/11/21 03:53 36.6 C 62 20 131/81 99 07/10/21 20:59 87 114/75 96 Resident Activity Tracking Resident Involvement: Resident Care Provided Care Provided: Adult Hospital Medicine (1) Pressure ulcer of right buttock Pressure injury stage: unspecified pressure injury stage Qualified Code(s): L89.319 - Pressure ulcer of right buttock, unspecified stage (2) CKD (chronic kidney disease) stage 3, GFR 30-59 ml/min Chronic kidney disease stage 3 subtype: unspecified whether 3a or 3b Qualified Code(s): N18.30 - Chronic kidney disease, stage 3 unspecified (3) Atrial fibrillation Atrial fibrillation type: paroxysmal Qualified Code(s): I48.0 - Paroxysmal atrial fibrillation (4) Depression Depression Type: unspecified Qualified Code(s): F32.9 - Major depressive disorder, single episode, unspecified (5) Diarrhea Diarrhea type: unspecified type Qualified Code(s): R19.7 - Diarrhea, unspecified (6) GERD (gastroesophageal reflux disease) Esophagitis presence: esophagitis presence not specified Qualified Code(s): K21.9 - Gastro-esophageal reflux disease without esophagitis (7) HTN (hypertension) Hypertension type: essential hypertension Qualified Code(s): I10 - Essential (primary) hypertension (8) Stroke CVA mechanism: embolism Precerebral and cerebral artery: other cerebral artery Qualified Code(s): I63.49 - Cerebral infarction due to embolism of other cerebral artery
[2021-07-11] MEDS: PANTOprazole 40 MG TAB PO SCH ×2 (09:56→20:35)
[2021-07-11] MEDS: FENOFIBRATE NANOCRYSTALLIZED 48 MG TABLET PO SCH (09:56)
[2021-07-11] MEDS: FLUoxetine HCL 20 MG CAP PO SCH (09:56)
[2021-07-11] MEDS: VITAMIN B COMPLEX TAB PO SCH (09:56)
[2021-07-11] MEDS: ASPIRIN 81 MG ECTAB PO SCH (09:57)
[2021-07-11] MEDS: CLOPIDOGREL BISULFATE 75 MG TAB PO SCH (09:57)
[2021-07-11] MEDS: EZETIMIBE 10 MG TABLET PO SCH (09:57)
[2021-07-11] MEDS: APIXABAN 5 MG TABLET PO SCH ×2 (09:57→20:34)
[2021-07-11] MEDS: lisinopril 10 MG TAB PO SCH (09:58)
--- NOTE | 2021-07-11 17:19 | Billing Data ---
Date of Service July 11, 2021 Coding Level of Care Code 90209 Subseq Hosp Care Lvl 2
--- NOTE | 2021-07-11 17:20 | Hospitalist Progress Note ---
Date of Service July 11, 2021 Assessment & Plan Admission and Anticipated Discharge Date Admission Date: July 04, 2021 Results & Data Results & Data ([facility]) Vital Signs (Past 12 Hours) Vital Signs Temp Pulse Resp BP Pulse Ox 07/11/21 14:32 97.7 F 86 18 121/77 98 07/11/21 06:14 97.3 F L 71 16 122/80 97 PG Care Time/CCT Total # of Minutes Spent Total Time Spent with Patient: Total time spent is greater than 50% in coordi nation of care (as documented) at patient's floor/unit and/or counseling patient: Coding Level of Care Code None CPT Codes Musculoskeletal - Musculoskeletal: 409[address] Oste[address] Janes Tr 1-2 Body regions ([id number])
[2021-07-11] MEDS: MIRTAZAPINE TAB 15 MG TAB PO SCH (20:35)
[2021-07-11] MEDS: rOPINIRole HCL 1 MG TABLET PO SCH (20:35)
[2021-07-11] MEDS: METOPROLOL SUCC 25MG EXT REL TAB PO SCH (20:35)
--- NOTE | 2021-07-12 07:50 | Hospitalist Progress Note ---
Date of Service July 12, 2021 Assessment & Plan (1) Diarrhea: Plan: Shailesh Antonio is a 75 yo male with PMHx significant for CKD3 (Cr 1.7 - 1.8), CAD s/p CABG x3, and h/o CVA 6 months ago (with residual L-sided deficits, returned from rehab the day before admission) who was admitted to [facility] on 07/04 for diarrhea and weight loss. Diarrhea, resolved; Weight Loss Symptoms most likely due to viral GI illness. Overall weight loss likely also due to chronic deconditioning in setting of CABG and CVA in the last 9 months. Bacterial illness unlikely given negative c-diff toxin and negative stool culture. Malignancy unlikely given unremarkable CT A/P. - Appetite improving since admission, diarrhea resolved - c-diff toxin negative (gene positive), stool cultures no growth to date - FOBT negative, last Colonoscopy in 2016 (several polyps removed) - CT head unremarkable - CT A/P with no acute findings - encourage PO intake - spool salvager consulted - appreciate recs - continue nightly Mirtazapine 15mg to assist with appetite Chronic Deconditioning In setting of last CABG ~9 months ago and debilitating CVA 6 months ago, with prolonged course of rehab. Likely contributing to weight loss as stated above. - PT/OT consulted - recommend acute rehab - CM consulted - referrals made and pending Left Renal Artery Stenosis Severe stenosis, decreased perfusion of kidney and associated severe atrophy. CKDIII as stated below; this likely is contributing. - sees Dr. Mercado as outpatient; recommend f/u with him in 1-2 weeks to address this CKDIII Baseline Cr 1.4-1.6. Currently just slightly above at 1.7. - check bmp in AM Atrial Fibrillation Chronic. Rate controlled on Metoprolol. Anticoagulated on Eliquis. - Continue Eliquis - 07/12: manually holding qhs metoprolol XL 25mg because recent BP 94/56 w/ pulse of 55. restart when appropriate. Trace crackles - most likely 2/2 atelectasis given frail habitus - ordered incentive spirometry HTN - continue home Toprol XL and Lisinopril GERD - continue Pepcid H/o CVA Patient with recent CVA and residual left sided deficits. - Continue ASA, Plavix - Continue Zetia Right Buttock Pressure Ulcer - wound care consulted to manage, no signs cellulitis - complained of discomfort today; nursing order requested to redress and turn in bed more frequently. RLS Chronic. Symptoms adequately controlled with increased Ropinirole dose. - Continue Ropinirole 1mg PO QHS Depression Chronic. - Reviewed outpatient clinic records; Fluoxetine was increased from 20mg to 40mg 2 months - Will decreased back to 20mg per patient request and symptom complaint. Continue at reduced 20mg dose upon discharge. FEN/GI: Heart-healthy/DM2 diet DVT Prophylaxis: Eliquis Code Status: full code Disposition: med/surg, referrals made and pending (2) Physical deconditioning: (3) HTN (hypertension): (4) GERD (gastroesophageal reflux disease): (5) Atrial fibrillation: (6) Stroke: (7) Pressure ulcer of right buttock: (8) Restless leg syndrome: (9) CKD (chronic kidney disease) stage 3, GFR 30-59 ml/min: (10) Depression: Admission and Anticipated Discharge Date Admission Date: July 04, 2021 Supervising Physician Co-Signing Physician Notes I personally examined the patient and verified all morrison points of history and exam, discussed case, and agree with decision making with Dr Melgar Leg spasms and contractions still happening, but may be less than before. No other new complaints. Vitals noted, in general he is awake and alert pleasant no distress. HEENT normocephalic atraumatic mucous membranes moist. Breathing unlabored no accessory muscle use good effort. Skin shows no rashes no pallor or icterus. Acute on chronic deconditioning and overall weight loss/weakness acutely brought on by viral gastroenteritis, chronic weakness largely relating back to deconditioning from bypass surgery, as well as left-sided hemiplegia following CVA, compounded by may be mild protein calorie malnutritionongoing PT/OT eval and treat, will need rehab/subacute rehab, but placement has been difficult. Stable to transfer when this is approved/available, otherwise as above. Left leg spasmsrelated to stroke weakness. Suspect the spasms are getting worse because he is getting more deconditioned while we have him in the hospital waiting on rehab. Suspect more therapy would help with this. In the meantime, trial of OMT to try to loosen the musclesseem to help, so that hopefully they will be less intrinsically spastic. Somatic dysfunction left leg/pelvisOMT done 07/11 Otherwise as above Subjective Complaining of discomfort at tailbone 2/2 sitting on bed. Otherwises, feels at baseline. Diarrhea since resolved, has formed stools. Normal urination. Residual stroke weakness of L side a baseline. He is requesting his home fluoxetine dose be discontinued/reduced because it makes him feel funny and believes it to affect his memory. He states his PCP recently increased the dose of this in the outpatient setting. Review of Systems Review of Systems: All systems reviewed & are unremarkable except as noted in HPI & below Constitutional: Denies fever Cardiovascular: Denies chest pain, palpitations Respiratory: Denies shortness of breath Gastrointestinal: Denies abdominal pain, nausea, vomiting, constipation, diarrhea Genitourinary: Denies urinary symptoms including dysuria Musculoskeletal: Denies weakness, muscle aches/pain, joint aches/pain Neurological: Denies headache, numbness, tingling, focal weakness Physical Exam Physical Exam: General: Grossly A&O. NAD. Cooperative. Overall frail/weak appearing. HEENT: Atraumatic, normocephalic. Pulm: CTAB. -wheezes, -rales, -rhonchi. Trace faint crackles at L base. No respiratory distress. Cardiac: RRR, -mrg. Radial pulses intact and symmetrical. Abdominal: Nontender, nondistended, soft. Integ: tailbone has bandage pad applied, dressing is c/d/i Neuro: slow speech hung, likely 2/2 residual from previous cva Results & Data Results & Data ([facility]) Vital Signs (Past 12 Hours) Vital Signs 35.8C L temp x1. Temp Pulse Pulse Resp BP Pulse Ox 07/11/21 23:46 35.8 C L 90 18 136/83 97 07/11/21 20:33 97 H 107/68 Laboratory Results no new cbc. 07/11 BMP: Na, K wnl. BUN 40 Cr 1.7 slightly uptrending, CKD3. BUN/Cr ratio 18.7->23.3. No recent imaging. 07/04 stool studies neg. no recent ecg. 510 in 525 out. cumulative 3280ml in 5625ml out. Resident Activity Tracking Resident Involvement: Resident Care Provided Care Provided: Adult Hospital Medicine (1) Pressure ulcer of right buttock Pressure injury stage: unspecified pressure injury stage Qualified Code(s): L89.319 - Pressure ulcer of right buttock, unspecified stage (2) CKD (chronic kidney disease) stage 3, GFR 30-59 ml/min Chronic kidney disease stage 3 subtype: unspecified whether 3a or 3b Qualified Code(s): N18.30 - Chronic kidney disease, stage 3 unspecified (3) Atrial fibrillation Atrial fibrillation type: paroxysmal Qualified Code(s): I48.0 - Paroxysmal atrial fibrillation (4) Depression Depression Type: unspecified Qualified Code(s): F32.9 - Major depressive disorder, single episode, unspecified (5) Diarrhea Diarrhea type: unspecified type Qualified Code(s): R19.7 - Diarrhea, unspecified (6) GERD (gastroesophageal reflux disease) Esophagitis presence: esophagitis presence not specified Qualified Code(s): K21.9 - Gastro-esophageal reflux disease without esophagitis (7) HTN (hypertension) Hypertension type: essential hypertension Qualified Code(s): I10 - Essential (primary) hypertension (8) Stroke CVA mechanism: embolism Precerebral and cerebral artery: other cerebral artery Qualified Code(s): I63.49 - Cerebral infarction due to embolism of other cerebral artery
[2021-07-12] MEDS: CLOPIDOGREL BISULFATE 75 MG TAB PO SCH (08:37)
[2021-07-12] MEDS: ASPIRIN 81 MG ECTAB PO SCH (08:37)
[2021-07-12] MEDS: PANTOprazole 40 MG TAB PO SCH ×2 (08:38→20:24)
[2021-07-12] MEDS: lisinopril 10 MG TAB PO SCH (08:38)
[2021-07-12] MEDS: FENOFIBRATE NANOCRYSTALLIZED 48 MG TABLET PO SCH (08:38)
[2021-07-12] MEDS: VITAMIN B COMPLEX TAB PO SCH (08:38)
[2021-07-12] MEDS: APIXABAN 5 MG TABLET PO SCH ×2 (08:38→20:24)
[2021-07-12] MEDS: FLUoxetine HCL 20 MG CAP PO SCH (08:38)
[2021-07-12] MEDS: EZETIMIBE 10 MG TABLET PO SCH (08:38)
[2021-07-12] MEDS: ACETAMINOPHEN 325 MG TAB PO PRN (11:47)
--- NOTE | 2021-07-12 18:29 | Billing Data ---
Date of Service July 12, 2021 Coding Level of Care Code 42634 Subseq Hosp Care Lvl 1
[2021-07-12] MEDS: rOPINIRole HCL 1 MG TABLET PO SCH (20:24)
[2021-07-12] MEDS: MIRTAZAPINE TAB 15 MG TAB PO SCH (20:24)
[2021-07-13 06:09] LABS: Hemoglobin 14.2 g/dL (14.0-18.0); Mean Corpuscular Hemoglobin 31.4 pg (25-34); Mean Corpuscular Hgb Conc 33.8 g/dL (32-36); Mean Corpuscular Volume 92.9 fL (80-100); Mean Platelet Volume 11.9 fL (7.4-10.4); Platelet Count 194 K/uL (130-400); RDW Coefficient of Variation 13.3 % (11.5-14.5); Red Blood Count 4.52 M/uL (4.7-6.1)
[2021-07-13 06:25] LABS: BUN Creatinine Ratio 21.7 (10-20); Calcium 9.3 mg/dl (8.5-10.1); Creatinine Clr Calc Pharmacy 24.9 ml/min; Est GFR (African American) 29.5 ml/min; Est GFR (Non-African American) 25.4 ml/min; Potassium 3.7 mmol/L (3.5-5.1)
[2021-07-13] MEDS ORDERED: SODIUM CHLORIDE 0.9% 1000ML 1,000 ML IV ONE (07:21)
[2021-07-13] MEDS: ACETAMINOPHEN 325 MG TAB PO PRN (07:51)
[2021-07-13] MEDS: VITAMIN B COMPLEX TAB PO SCH (07:51)
[2021-07-13] MEDS: FENOFIBRATE NANOCRYSTALLIZED 48 MG TABLET PO SCH (07:52)
[2021-07-13] MEDS: PANTOprazole 40 MG TAB PO SCH ×2 (07:52→19:52)
[2021-07-13] MEDS: CLOPIDOGREL BISULFATE 75 MG TAB PO SCH (07:52)
[2021-07-13] MEDS: EZETIMIBE 10 MG TABLET PO SCH (07:52)
[2021-07-13] MEDS: FLUoxetine HCL 20 MG CAP PO SCH (07:52)
[2021-07-13] MEDS: APIXABAN 5 MG TABLET PO SCH ×2 (07:52→19:52)
[2021-07-13] MEDS: ASPIRIN 81 MG ECTAB PO SCH (07:52)
[2021-07-13] MEDS: LACTATED RINGER'S 1,000 ML IV SCH ×2 (09:23→17:21)
--- NOTE | 2021-07-13 10:23 | Hospitalist Progress Note ---
Date of Service July 13, 2021 Assessment & Plan (1) Diarrhea: Plan: Shailesh Antonio is a 75 yo male with PMHx significant for CKD3 (Cr 1.7 - 1.8), CAD s/p CABG x3, and h/o CVA 6 months ago (with residual L-sided deficits, returned from rehab the day before admission) who was admitted to [facility] on 07/04 for diarrhea and weight loss. LUDWIN on CKDIII, LUDWIN improving. Cr 1.7 --> 2.4 today (baseline Cr 1.7 - 1.8) with BUN:Cr ratio >20:1. Cr impr ash to 2.09 this afternoon after IVFs. Suspect pre-renal injury due to chronic poor PO intake with contributions from left renal artery stenosis and daily LIZZIE- I. - continue LR @125cc/hr - held home Lisinopril - will likely d/c on discharge given renal artery stenosis and SBPs mostly 110s/120s. - trend BMP daily Left Renal Artery Stenosis Severe stenosis, decreased perfusion of kidney and associated severe atrophy. CKDIII as stated above; this likely is contributing. - sees Dr. Mercado as outpatient; recommend f/u with him in 1-2 weeks to address this - held home Lisinopril as stated above Diarrhea, resolved; Weight Loss Symptoms most likely due to viral GI illness. Overall weight loss likely also due to chronic deconditioning in setting of CABG and CVA in the last 9 months. Bacterial illness unlikely given negative c-diff toxin and negative stool culture. Malignancy unlikely given unremarkable CT A/P. - Appetite improving since admission, diarrhea resolved - c-diff toxin negative (gene positive), stool cultures no growth to date - FOBT negative, last Colonoscopy in 2017 (several polyps removed) - CT head unremarkable - CT A/P with no acute findings - encourage PO intake - mine analyst consulted - appreciate recs - continue nightly Mirtazapine 15mg to assist with appetite Chronic Deconditioning In setting of last CABG ~9 months ago and debilitating CVA 6 months ago, with prolonged course of rehab. Likely contributing to weight loss as stated above. - PT/OT consulted - recommend acute rehab - CM consulted - referrals made and pending Atrial Fibrillation Chronic. Rate controlled on Toprol XL. Anticoagulated on Eliquis. - Continue Eliquis and Toprol XL. HTN - continue home Toprol XL and Lisinopril GERD - continue Pepcid H/o CVA Patient with recent CVA and residual left sided deficits. - Continue ASA, Plavix - Continue Zetia Right Buttock Pressure Ulcer - wound care consulted to manage, no signs cellulitis RLS Chronic. Symptoms adequately controlled with increased Ropinirole dose. - Continue Ropinirole 1mg PO QHS Depression Chronic. - continue Fluoxetine 20mg (reduced dose - per patient request) - continue Mirtazapine FEN/GI: Heart-healthy/DM2 diet DVT Prophylaxis: Eliquis Code Status: full code Disposition: med/surg, referrals made and pending (2) Physical deconditioning: (3) HTN (hypertension): (4) GERD (gastroesophageal reflux disease): (5) Atrial fibrillation: (6) Stroke: (7) Pressure ulcer of right buttock: (8) Restless leg syndrome: (9) CKD (chronic kidney disease) stage 3, GFR 30-59 ml/min: (10) Depression: Admission and Anticipated Discharge Date Admission Date: July 04, 2021 Supervising Physician Co-Signing Physician Notes I personally examined the patient and verified all morrison points of history and exam, discussed case, and agree with decision making with Dr Melgar Sleeping comfortably. No new issues identified. Discussed with case managementgiven the last case management note suggested that [facility] may have a bed available today. In discussion with case management, that might be the case, but unfortunately his insurance company closes on weekends in spite of patient's being in hospital 7 days a week, so while [facility] could potentially have a bed, he does not have an insurance approval yet. Vitals noted, in general no distress. HEENT normocephalic atraumati. Breathing unlabored no accessory muscle use good effort. Skin shows no rashes no pallor or icterus. Acute on chronic deconditioning and overall weight loss/weakness acutely brought on by viral gastroenteritis, chronic weakness largely relating back to deconditioning from bypass surgery, as well as left-sided hemiplegia following CVA, compounded by may be mild protein calorie malnutritionongoing PT/OT eval and treat, hopefully will get approval and be able to go to [facility] tomorrow. Suspect mild LUDWIN on CKD is related to poor p.o. intakeresident physician initiated IV fluids for now. Definitely when he goes to SNF they will need to monitor his p.o. fluid intake and encourage meeting fluid goals. Left leg spasmsrelated to stroke weakness. Suspect the spasms are getting worse because he is getting more deconditioned while we have him in the hospital waiting on rehab. Suspect more therapy would help with this. In the meantime, trial of OMT to try to loosen the musclesseem to help, so that hopefully they will be less intrinsically spastic. Somatic dysfunction left leg/pelvisOMT done 07/11 Otherwise as above Subjective No acute events overnight. Diarrhea resolved x4 days, had formed BM yesterday. No N/V or abdominal pain. Appetite chronically poor but patient trying to work on PO intake. Amenable to rehab. Review of Systems Review of Systems: All systems reviewed & are unremarkable except as noted in HPI & below Physical Exam Physical Exam: General: A&Ox3. NAD. Cooperative. HEENT: Atraumatic, normocephalic. Pulm: CTAB A&P. -wheezes, -rales, -rhonchi. Symmetrical chest rise. No increase work of breathing. No respiratory distress. Cardiac: RRR, -mrg. Radial pulses intact and symmetrical. Abdominal: soft, non-tender, non-distended, BS x 4 Skin: warm, dry, no rash Results & Data Results & Data ([facility]) Vital Signs (Past 12 Hours) Vital Signs Temp Pulse Resp BP Pulse Ox 07/13/21 07:03 36.4 C L 74 16 110/67 94 Resident Activity Tracking Resident Involvement: Resident Care Provided Care Provided: Adult Hospital Medicine (1) Pressure ulcer of right buttock Pressure injury stage: unspecified pressure injury stage Qualified Code(s): L89.319 - Pressure ulcer of right buttock, unspecified stage (2) CKD (chronic kidney disease) stage 3, GFR 30-59 ml/min Chronic kidney disease stage 3 subtype: unspecified whether 3a or 3b Qualified Code(s): N18.30 - Chronic kidney disease, stage 3 unspecified (3) Atrial fibrillation Atrial fibrillation type: paroxysmal Qualified Code(s): I48.0 - Paroxysmal atrial fibrillation (4) Depression Depression Type: unspecified Qualified Code(s): F32.9 - Major depressive disorder, single episode, unspecified (5) Diarrhea Diarrhea type: unspecified type Qualified Code(s): R19.7 - Diarrhea, unspecified (6) GERD (gastroesophageal reflux disease) Esophagitis presence: esophagitis presence not specified Qualified Code(s): K21.9 - Gastro-esophageal reflux disease without esophagitis (7) HTN (hypertension) Hypertension type: essential hypertension Qualified Code(s): I10 - Essential (primary) hypertension (8) Stroke CVA mechanism: embolism Precerebral and cerebral artery: other cerebral artery Qualified Code(s): I63.49 - Cerebral infarction due to embolism of other cerebral artery
[2021-07-13 13:31] LABS: Calcium 8.9 mg/dl (8.5-10.1); Creatinine Clr Calc Pharmacy 28.6 ml/min; Est GFR (African American) 34.8 ml/min; Est GFR (Non-African American) 30.1 ml/min
[2021-07-13] MEDS: MIRTAZAPINE TAB 15 MG TAB PO SCH (19:52)
[2021-07-13] MEDS: METOPROLOL SUCC 25MG EXT REL TAB PO SCH (19:52)
[2021-07-13] MEDS: rOPINIRole HCL 1 MG TABLET PO SCH (19:52)
--- NOTE | 2021-07-13 20:01 | Billing Data ---
Date of Service July 13, 2021 Coding Level of Care Code 65657 Subseq Hosp Care Lvl 1
[2021-07-14] MEDS: LACTATED RINGER'S 1,000 ML IV SCH ×2 (01:18→09:14)
[2021-07-14 06:36] LABS: Basophils # (auto) 0.06 K/uL (0-0.2); Basophils % (auto) 0.7 %; Eosinophils # (auto) 0.28 K/uL (0-0.5); Eosinophils % (auto) 3.2 %; Hemoglobin 13.7 g/dL (14.0-18.0); Immature Granulocytes # (auto) 0.04 K/uL (0.00-0.02); Immature Granulocytes % (auto) 0.5 %; Lymphocytes # (auto) 1.45 K/uL (1.2-3.4); Lymphocytes % (auto) 16.3 %; Mean Corpuscular Hgb Conc 33.4 g/dL (32-36); Mean Corpuscular Volume 92.8 fL (80-100); Mean Platelet Volume 11.8 fL (7.4-10.4); Monocytes # (auto) 0.61 K/uL (0.11-0.59); Monocytes % (auto) 6.9 %; Neutrophils # (auto) 6.44 K/uL (1.4-6.5); Neutrophils % (auto) 72.4 %; Platelet Count 181 K/uL (130-400); RDW Coefficient of Variation 13.1 % (11.5-14.5); RDW Standard Deviation 44.8 fL (36.4-46.3); Red Blood Count 4.42 M/uL (4.7-6.1); White Blood Count 8.88 K/uL (4.8-10.8)
[2021-07-14 07:10] LABS: BUN Creatinine Ratio 21.2 (10-20); Calcium 8.9 mg/dl (8.5-10.1); Creatinine Clr Calc Pharmacy 35.3 ml/min; Est GFR (Non-African American) 38.9 ml/min; Magnesium 1.9 mg/dl (1.8-2.4); Potassium 4.2 mmol/L (3.5-5.1)
[2021-07-14] MEDS: CLOPIDOGREL BISULFATE 75 MG TAB PO SCH (09:15)
[2021-07-14] MEDS: ASPIRIN 81 MG ECTAB PO SCH (09:15)
[2021-07-14] MEDS: APIXABAN 5 MG TABLET PO SCH ×2 (09:15→20:14)
[2021-07-14] MEDS: PANTOprazole 40 MG TAB PO SCH ×2 (09:16→20:14)
[2021-07-14] MEDS: FLUoxetine HCL 20 MG CAP PO SCH (09:16)
[2021-07-14] MEDS: EZETIMIBE 10 MG TABLET PO SCH (09:16)
[2021-07-14] MEDS: FENOFIBRATE NANOCRYSTALLIZED 48 MG TABLET PO SCH (09:16)
[2021-07-14] MEDS: VITAMIN B COMPLEX TAB PO SCH (09:17)
--- NOTE | 2021-07-14 13:47 | Hospitalist Progress Note ---
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 LUDWIN on CKDIII, LUDWIN improving. Cr 1.61 today (baseline Cr 1.7 - 1.8). Cr improved after IVFs. Suspect pre-renal injury due to chronic poor PO intake with contributions from left renal artery stenosis and daily LIZZIE-I. - IVF stopped as Cr downtrending, encourage PO intake - held home Lisinopril - will likely d/c on discharge given renal artery stenosis and SBPs mostly 110s/120s. - trend BMP daily Left Renal Artery Stenosis Severe stenosis, decreased perfusion of kidney and associated severe atrophy. CKDIII as stated above; this likely is contributing. - sees Dr. Meracdo as outpatient; recommend f/u with him in 1-2 weeks to address this - held home Lisinopril as stated above Diarrhea, resolved; Weight Loss Symptoms most likely due to viral GI illness. Overall weight loss likely also due to chronic deconditioning in setting of CABG and CVA in the last 9 months. Bacterial illness unlikely given negative c-diff toxin and negative stool culture. Malignancy unlikely given unremarkable CT A/P. - Appetite improving since admission, diarrhea resolved - c-diff toxin negative (gene positive), stool cultures no growth to date - FOBT negative, last Colonoscopy in 2017 (several polyps removed) - CT head unremarkable - CT A/P with no acute findings - encourage PO intake - barrel charrer helper consulted - appreciate recs - continue nightly Mirtazapine 15mg to assist with appetite Chronic Deconditioning In setting of last CABG ~9 months ago and debilitating CVA 6 months ago, with prolonged course of rehab. Likely contributing to weight loss as stated above. - PT/OT consulted - recommend acute rehab - CM consulted - referrals made and pending - Insurance authorized, [facility] to accept patient tomorrow Atrial Fibrillation Chronic. Rate controlled on Toprol XL. Anticoagulated on Eliquis. - Continue Eliquis and Toprol XL. HTN - continue home Toprol XL and Lisinopril GERD - continue Pepcid H/o CVA Patient with recent CVA and residual left sided deficits. - Continue ASA, Plavix - Continue Zetia Right Buttock Pressure Ulcer - wound care consulted to manage, no signs cellulitis RLS Chronic. Symptoms adequately controlled with increased Ropinirole dose. - Continue Ropinirole 1mg PO QHS Depression Chronic. - continue Fluoxetine 20mg (reduced dose - per patient request) - continue Mirtazapine FEN/GI: Heart-healthy/DM2 diet DVT Prophylaxis: Eliquis Code Status: full code Disposition: med/surg, likely discharge to [facility] tomorrow (2) Physical deconditioning: (3) HTN (hypertension): (4) GERD (gastroesophageal reflux disease): (5) Atrial fibrillation: (6) Stroke: (7) Pressure ulcer of right buttock: (8) Restless leg syndrome: (9) CKD (chronic kidney disease) stage 3, GFR 30-59 ml/min: (10) Depression: Admission and Anticipated Discharge Date Admission Date: July 04, 2021 Supervising Physician Co-Signing Physician Notes Resident Physician Supervision Note: I independently interviewed and examined the patient and verified the morrison history and physical, reviewed labs and image studies and agree with resident Dr. Coyne findings and care plan. Subjective No acute events overnight. Seen at bedside, resting comfortably. Reports no diarrhea in several days. Denies nausea, vomiting, abdominal pain. Has been tolerating p.o. diet well, with somewhat improved appetite, though his baseline is poor appetite. Review of Systems 2 Review of Systems: Per HPI Physical Exam Physical Exam: General: A&Ox3. NAD. Cooperative. HEENT: Atraumatic, normocephalic. Pulm: CTAB A&P. -wheezes, -rales, -rhonchi. Symmetrical chest rise. No increase work of breathing. No respiratory distress. Cardiac: RRR, -mrg. Radial pulses intact and symmetrical. Abdominal: soft, non-tender, non-distended, BS x 4 Skin: warm, dry, no rash Results & Data Results & Data ([facility]) Vital Signs (Past 12 Hours) Vital Signs Temp Pulse Resp BP Pulse Ox 07/14/21 07:20 36.3 C L 60 18 147/80 H 97 Resident Activity Tracking Resident Involvement: Resident Care Provided Care Provided: Adult Hospital Medicine (1) Pressure ulcer of right buttock Pressure injury stage: unspecified pressure injury stage Qualified Code(s): L89.319 - Pressure ulcer of right buttock, unspecified stage (2) CKD (chronic kidney disease) stage 3, GFR 30-59 ml/min Chronic kidney disease stage 3 subtype: unspecified whether 3a or 3b Qualified Code(s): N18.30 - Chronic kidney disease, stage 3 unspecified (3) Atrial fibrillation Atrial fibrillation type: paroxysmal Qualified Code(s): I48.0 - Paroxysmal atrial fibrillation (4) Depression Depression Type: unspecified Qualified Code(s): F32.9 - Major depressive disorder, single episode, unspecified (5) Diarrhea Diarrhea type: unspecified type Qualified Code(s): R19.7 - Diarrhea, unspecified (6) GERD (gastroesophageal reflux disease) Esophagitis presence: esophagitis presence not specified Qualified Code(s): K21.9 - Gastro-esophageal reflux disease without esophagitis (7) HTN (hypertension) Hypertension type: essential hypertension Qualified Code(s): I10 - Essential (primary) hypertension (8) Stroke CVA mechanism: embolism Precerebral and cerebral artery: other cerebral artery Qualified Code(s): I63.49 - Cerebral infarction due to embolism of other cerebral artery
[2021-07-14 16:36] VITALS: O2SAT 98
[2021-07-14] MEDS: METOPROLOL SUCC 25MG EXT REL TAB PO SCH (20:14)
[2021-07-14] MEDS: MIRTAZAPINE TAB 15 MG TAB PO SCH (20:14)
[2021-07-14] MEDS: rOPINIRole HCL 1 MG TABLET PO SCH (20:14)
[2021-07-15 07:31] VITALS: BP 125/81; PULSE 62; TEMP 97.9
[2021-07-15] MEDS: APIXABAN 5 MG TABLET PO SCH (08:57)
[2021-07-15] MEDS: ASPIRIN 81 MG ECTAB PO SCH (08:58)
[2021-07-15] MEDS: CLOPIDOGREL BISULFATE 75 MG TAB PO SCH (08:58)
[2021-07-15] MEDS: EZETIMIBE 10 MG TABLET PO SCH (08:58)
[2021-07-15] MEDS: FLUoxetine HCL 20 MG CAP PO SCH (08:59)
[2021-07-15] MEDS: FENOFIBRATE NANOCRYSTALLIZED 48 MG TABLET PO SCH (08:59)
[2021-07-15] MEDS: PANTOprazole 40 MG TAB PO SCH (08:59)
[2021-07-15] MEDS: VITAMIN B COMPLEX TAB PO SCH (08:59)
--- NOTE | 2021-07-15 09:49 | Discharge Summary ---
Date of Service July 15, 2021 Admission HPI Per Admitting Provider Shailesh Antonio is a 75yo male presenting with generalized weakness, difficulty ambulating and deconditioning. Patient had an acute CVA appx 6 months ago with residual left sided deficit. He [facility]. He returned to his home yesterday. He reports 14 days of profuse, green, watery diarrhea. He has at least one watery bowel movement/day. He states that after he eats food he feels that it just sits in his stomach. Then he develops lower abodominal pain and has an episode of diarrhea. He denies fever, chills, nausea, vomiting, bloody diarrhea. No recent illness or antibiotic use. No close contacts with diarrhea or travel. Patient was seen in the ER earlier today for this complaint. He had a negative workup therefore was discharged home. He states that he was unable to climb the stairs due to weakness therefore returned to the ER. Feels that his strength was improving and he was getting around better prior to diarrhea starting 2 weeks ago and now he has lost a considerable amount of strength. States he is unable to ambulate or perform his ADLs due to weakness. Principal Diagnosis Chronic deconditioning Discharge Exam General: A&Ox3. NAD. Cooperative. HEENT: Atraumatic, normocephalic. Pulm: CTAB A&P. -wheezes, -rales, -rhonchi. Symmetrical chest rise. No increase work of breathing. No respiratory distress. Cardiac: RRR, -mrg. Radial pulses intact and symmetrical. Abdominal: soft, non-tender, non-distended, BS x 4 Skin: warm, dry, no rash Discharge Data Allergies Allergy/AdvReac Type Severity Reaction Status Date / Time Corticosteroids Allergy Unknown Unknown Verified 07/04/21 00:05 (Glucocorticoids) niacin Allergy Unknown ARTHRALGIAS Verified 07/04/21 00:05 FROM ADVICOR telithromycin Allergy Unknown ARTHRALGIAS Verified 07/04/21 00:05 FROM ADVICOR atorvastatin AdvReac Intermediate Muscle Pain Verified 07/04/21 00:05 lovastatin AdvReac Intermediate ARTHRALGIAS Verified 07/04/21 00:05 FROM ADVICOR [id number]-GxP Reductase AdvReac Intermediate Muscle Pain Verified 07/04/21 00:05 Inhibitor [Obcjpxd-Fib-Cfk Reductase Inhibitor] Consultations 07/04/21 00:12 ED Decision to Admit Stat Ordered Studies 07/03/21 23:29 CT head/brain wo con Urgent 07/05/21 06:00 CT abd pelvis oral and IV con Urgent Hospital Course (1) Diarrhea: Shailesh Antonio is a 75 yo male with PMHx significant for CKD3 (Cr 1.7 - 1.8), CAD s/p CABG x3, and h/o CVA 6 months ago (with residual L-sided deficits, returned from rehab the day before admission) who was admitted to [facility] on 07/04 for diarrhea and weight loss. LUDWIN on CKDIII, LUDWIN improving. Cr 1.61 07/14 (baseline Cr 1.7 - 1.8). Cr improved after IVFs. Suspect pre-renal injury due to chronic poor PO intake with contributions from left renal artery stenosis and daily LIZZIE-I. - IVF stopped as Cr downtrending, encourage PO intake - held home Lisinopril - recommend d/c on discharge given renal artery stenosis and SBPs mostly 110s/120s. Left Renal Artery Stenosis Severe stenosis, decreased perfusion of kidney and associated severe atrophy. CKDIII as stated above; this likely is contributing. - sees Dr. Mercado as outpatient; recommend f/u with him in 1-2 weeks to address this - d/susi lisinopril Diarrhea, resolved; Weight Loss Symptoms most likely due to viral GI illness. Overall weight loss likely also due to chronic deconditioning in setting of CABG and CVA in the last 9 months. Bacterial illness unlikely given negative c-diff toxin and negative stool cul ture. Malignancy unlikely given unremarkable CT A/P. - Appetite improving since admission, diarrhea resolved - c-diff toxin negative (gene positive), stool cultures no growth to date - FOBT negative, last Colonoscopy in 2017 (several polyps removed) - CT head unremarkable - CT A/P with no acute findings - encourage PO intake - continued nightly Mirtazapine 15mg to assist with appetite Chronic Deconditioning In setting of last CABG ~9 months ago and debilitating CVA 6 months ago, with prolonged course of rehab. Likely contributing to weight loss as stated above. - PT/OT consulted - recommend acute rehab Atrial Fibrillation Chronic. Rate controlled on Toprol XL. Anticoagulated on Eliquis. - Continued Eliquis and Toprol XL. HTN - continued home Toprol XL and Lisinopril GERD - continued Pepcid H/o CVA Patient with recent CVA and residual left sided deficits. - Continue ASA, Plavix - Continue Zetia Right Buttock Pressure Ulcer - wound care consulted to manage, no signs cellulitis RLS Chronic. Symptoms adequately controlled with increased Ropinirole dose. - Continue Ropinirole 1mg PO QHS Depression Chronic. - continue Fluoxetine 20mg (reduced dose - per patient request) - continue Mirtazapine Code Status: full code Disposition:transfer to SNF (2) Physical deconditioning: (3) HTN (hypertension): (4) GERD (gastroesophageal reflux disease): (5) Atrial fibrillation: (6) Stroke: (7) Pressure ulcer of right buttock: (8) Restless leg syndrome: (9) CKD (chronic kidney disease) stage 3, GFR 30-59 ml/min: (10) Depression: Total Time Total Time Spent Total Time Spent (In Minutes): see attending attestation Discharge Plan Discharge Items Patient Disposition: Transfer [facility] Reason For Visit: WEAKNESS Discharge Diagnosis: Chronic deconditioning Activity: Per Instructions section Non-emergency contact: Primary Care Provider Call non-emergency contact if: you have any medication questions and your symptoms worsen Follow-up/Referrals: Amando Mercado DO [Physician] - (schedule patient in 1-2 weeks for moderate renal artery stenosis) Alejandrina Brooks DO [Primary Care Provider] - Diet: Carb Consistent or DM2 and Heart Healthy Addtl Attending Provider Instructions: Shailesh Antonio is a 75 yo male with PMHx significant for CKD3 (Cr 1.7 - 1.8), CAD s/p CABG x3, and h/o CVA 6 months ago (with residual L-sided deficits, returned from rehab the day before admission) who was admitted to [facility] on 07/04 for diarrhea and weight loss. LUDWIN on CKDIII - LUDWIN resolved Cr 1.61 07/15 (baseline Cr 1.7 - 1.8). Cr improved after IVFs. Suspect pre-renal injury due to chronic poor PO intake with contributions from left renal artery stenosis and daily LIZZIE-I. - Cr downtrending and IVF stopped -- encourage continued PO intake - held home Lisinopril - recommend d/c on discharge given renal artery stenosis and SBPs mostly 110s/120s. Left Renal Artery Stenosis Severe stenosis, decreased perfusion of kidney and associated severe atrophy. CKDIII as stated above; this likely is contributing. - sees Dr. Mercado as outpatient; recommend f/u with him in 1-2 weeks to address this - held home Lisinopril as stated above Diarrhea, resolved; Weight Loss Symptoms most likely due to viral GI illness. Overall weight loss likely also due to chronic deconditioning in setting of CABG and CVA in the last 9 months. Bacterial illness unlikely given negative c-diff toxin and negative stool culture. Malignancy unlikely given unremarkable CT A/P. - Appetite improving since admission, diarrhea resolved - c-diff toxin negative (gene positive), stool cultures negative - FOBT negative, last Colonoscopy in 2017 (several polyps removed) - CT head unremarkable - CT A/P with no acute findings - encourage PO intake - window and siding craftsman consulted -- continue current diet - continue nightly Mirtazapine 15mg to assist with appetite Chronic Deconditioning In setting of last CABG ~9 months ago and debilitating CVA 6 months ago, with prolonged course of rehab. Likely contributing to weight loss as stated above. - PT/OT consulted - recommend acute rehab Atrial Fibrillation Chronic. Rate controlled on Toprol XL. Anticoagulated on Eliquis. - Continue Eliquis and Toprol XL. HTN - continue home Toprol XL and Lisinopril GERD - continue Pepcid H/o CVA Patient with recent CVA and residual left sided deficits. - Continue ASA, Plavix - Continue Zetia Right Buttock Pressure Ulcer - wound care consulted to manage, no signs cellulitis RLS Chronic. Symptoms adequately controlled with increased Ropinirole dose. - Continue Ropinirole 1mg PO QHS Depression Chronic. - continue Fluoxetine 20mg (reduced dose - per patient request) - continue Mirtazapine FEN/GI: Heart-healthy/DM2 diet DVT Prophylaxis: Eliquis Code Status: full code Disposition: Transfer to [facility] Pending Studies at Discharge: No Stand-Alone Forms: My [facility] Skilled Items Patient informed of condition?: Yes DNR: No Discharge Level of Care: Skilled Communicable Disease: No Discharge Prognosis: Stable Lines: Peripheral IV Urinary Catheter: No Medications and DC Order Prescriptions: New fluoxetine 20 mg Capsule 20 mg PO DAILY 30 Days Qty: 30 RF: 0 Continued ezetimibe 10 mg tablet 10 mg PO QAM RF: 0 fenofibrate nanocrystallized 48 mg tablet 48 mg PO QAM RF: 0 docusate sodium 100 mg Capsule 100 mg PO TID RF: 0 cholecalciferol (vitamin D3) [Vitamin D3] 50 mcg (2,000 unit) Capsule 2,000 unit PO QAM RF: 0 clopidogrel 75 mg Tablet 75 mg PO QAM Qty: 30 RF: 0 vitamin B complex [Vitamins B Complex] Capsule 1 tab PO QAM Qty: 30 RF: 0 ropinirole 0.5 mg tablet 0.5 mg PO HS RF: 0 omeprazole 20 mg capsule,delayed release(DR/EC) 20 mg PO BID RF: 0 multivitamin with minerals Tablet 1 tab PO DAILY RF: 0 aspirin [Aspirin Low Dose] 81 mg Tablet,Delayed Release (Dr/Ec) 81 mg PO DAILY RF: 0 metoprolol succinate 25 mg tablet extended release 24 hr 25 mg PO HS RF: 0 ferrous sulfate 325 mg (65 mg iron) Tablet 325 mg PO AMPM RF: 0 Eliquis 5 mg tablet 5 mg PO BID RF: 0 Discontinued fluoxetine 40 mg capsule 40 mg PO DAILY RF: 0 lisinopril 10 mg tablet 10 mg PO DAILY RF: 0 Discharge Orders: Discharge Order (Routine); Ordered 07/15/21 Ordered By: Kali Cutler/Other Patient Handouts: High Blood Sugar (Hyperglycemia), Hypoglycemia (Low Blood Sugar), Managing Type 2 Diabetes, 5 Steps for Eating Healthier Admission Data Admit Date/Time: 07/04/21 14:41 Attending Provider: Faith Bush Admit Provider: Kim Giang Primary Care Provider: Alejandrina Brooks Other Providers: Kim Giang ; Italo Ferrara at [place] ; Michael Alaniz ; [facility] Other Interventions: Discharge Summary Assessment (RN) Last Done: 07/15/21 08:27 Supervising Physician Co-Signing Physician Notes Resident Physician Supervision Note: I independently interviewed and examined the patient and verified the morrison history and physical, reviewed labs and image studies and agree with resident Dr. Coyne findings and care plan. Resident Activity Tracking Resident Involvement: Resident Care Provided Care Provided: Adult Hospital Medicine
== END 2021-07-15 14:07 | DRG 392 ==
LOC: ED 22:31 → 3E 22:31 → SUATTDRO 07-04 01:53 → 3E 07-04 02:55 → SUATTDRO 07-04 14:41

== ENCOUNTER 2022-07-27 08:33 | Observation (INO) ==
[2022-07-27 09:11] LABS: Basophils # (auto) 0.08 K/uL (0-0.2); Basophils % (auto) 0.9 %; Eosinophils # (auto) 0.31 K/uL (0-0.50); Eosinophils % (auto) 3.3 %; Hematocrit (blood only) 43.5 % (40.1-51.0); Hemoglobin 15.1 g/dl (14.0-18.0); Immature Granulocytes # (auto) 0.07 K/uL (0.00-0.02); Immature Granulocytes % (auto) 0.7 %; Lymphocytes # (auto) 1.55 K/uL (1.2-3.4); Lymphocytes % (auto) 16.6 %; Mean Corpuscular Hemoglobin 31.1 pg (25.0-34.0); Mean Corpuscular Hgb Conc 34.7 g/dL (32.0-36.0); Mean Corpuscular Volume 89.5 fL (80.0-100.0); Mean Platelet Volume 11.6 fL (9.4-12.4); Monocytes # (auto) 0.62 K/uL (0.24-0.82); Monocytes % (auto) 6.6 %; Neutrophils # (auto) 6.72 K/uL (1.4-6.5); Neutrophils % (auto) 71.9 %; Platelet Count 157 K/uL (130-400); RDW Standard Deviation 42.6 fL (36.4-46.3); Red Blood Count 4.86 M/uL (4.63-6.08); White Blood Count 9.35 K/ul (4.8-10.8)
[2022-07-27 09:14] LABS: iSTAT Creatinine 1.7 mg/dl (0.6-1.3); iSTAT Hemoglobin 14.6 g/dl (14.0-18.0); iSTAT Ionized Calcium 1.16 mmol/l (1.12-1.32); iSTAT Potassium 3.3 mmol/L (3.3-5.0)
[2022-07-27 09:22] LABS: INR 1.1 (0.9-1.1); Partial Thromboplastin Ratio 1.2; Partial Thromboplastin Time 32.8 Seconds (21.0-31.0); Prothrombin Time 11.3 Seconds (9.0-12.0)
[2022-07-27 09:35] LABS: Albumin Globulin Ratio 1.5 (0.9-2); BUN Creatinine Ratio 7.9 (10-20); Bilirubin,Total 0.8 mg/dl (0.2-1.0); Creatinine Clr Calc Pharmacy 36.8 ml/min; Est GFR (Non-African American) 39.7 ml/min; Globulin 2.6 gm/dl (2.5-4.0); Magnesium 1.7 mg/dl (1.7-2.4); Potassium 3.3 mmol/L (3.5-5.1); Total Protein 6.6 gm/dl (6.0-8.3)
--- NOTE | 2022-07-27 09:37 | Emergency Department Note ---
Impression & Plan Stroke-like symptoms, HTN (hypertension), CKD (chronic kidney disease) stage 3, GFR 30-59 ml/min, Anticoagulated ED Provider Note Provider: Edgard Thomas MD DATE OF SERVICE: 07/27/2022 CHIEF COMPLAINT: Speech issues HISTORY OF PRESENT ILLNESS: Patient is a 76-year-old gentleman history of CVA with resultant left-sided deficits, DM, hypertension, GERD, CKD, CAD status post CABG, and atrial fibrillation on Eliquis presenting here today with daughter stating woke around 630 or so this morning and states his speech was slurred and not quite right. States he had little bit more difficulty getting out of his bed as well. Daughter states that his speech is still a bit off and he is norm ally very active and self-sufficient but this is not the case at the current time. No falls or trauma reported. Patient states he went to bed at 10 PM last night and was well at that time. States he has been taking his Plavix and Eliquis including this morning although daughter states he has missed a few doses of this the past week. Denies any significant headache or dizziness or nausea. Denying chest pain or shortness of breath. Denies significant new deficits in the arms or legs at this point beyond feeling less spasm this morning in his left leg than normal. Patient states he was having spasms last night and overnight. REVIEW OF SYSTEMS: A total of 10 review of systems was obtained and negative except as stated above in the HPI. PAST MEDICAL HISTORY: As noted above MEDICATIONS: Reviewed home medication and the patient and is mostly compliant with it. SOCIAL HISTORY: Lives at home, ambulates with walker, denies current smoking PHYSICAL EXAM: GENERAL: alert and oriented in no acute distress on stretcher Head: normocephalic and atraumatic EYES: No injection, discharge or icterus. PERRL, EOMI. NECK: Trachea midline. Supple. ENT: Mucous membranes pink and moist. Pharynx without erythema or exudate. LUNGS: Airway patent. No retractions. Breath sounds clear with good air entry bilaterally. HEART: Regular rate and rhythm. No chest wall tenderness ABDOMEN: Soft and non-tender, without guarding or rebound. SKIN: Acyanotic, warm, dry, without rashes EXTREMITIES: Without significant erythema or swelling of the lower extremities. Left lower leg is in a leg brace. NEUROLOGICAL: Very slight aphasia. No facial droop but perhaps a hint of slurred speech. Tongue midline normal strength and tone in the extremities. Sensation to gross touch normal in face and extremities. Patient states unchanged weakness in the left upper extremity and left leg although not having the same contracture pain is normal in the left leg. Not significantly swollen in the lower extremities. EK bpm normal sinus rhythm. No PVC or PAC. No acute ST segment elevation or depression with QTC of 468. CONTINUOUS CARDIAC MONITORING: was ordered and showed a heart rate of 60s-70s bpm in normal sinus rhythm Patient's laboratory studies and imaging reviewed. Differential includes Infection, dehydration, metabolic abnormality, hypo/hyperglycemia, electrolyte disturbance, anemia, hypoxia, cardiac sources, intracerebral event, toxicologic, neurologic, as well as other pathologies. IMPRESSION/MEDICAL DECISION MAKING: Patient with chronic deficits on the left arm and leg. Seems to have intact strength and movement of the right arm and leg which he states is at baseline. Denies any new numbness or tingling of the face or extremities. There is no evidence of facial droop on exam although he occasionally has a bit of slight aphasia. Speech does not seem that overly slurred. Occasionally has missed some Plavix and Eliquis doses may be contributing although he appears to be in sinus rhythm at this time. Outside the time window and contraindicated given his anticoagulation use for thrombolytics. Has underlying CKD and will obtain lab work to see if we can obtain a CTA to evaluate not only a Noncon head CT but as well as vessels if possible. Question this could be possible new stroke versus TIA given his multiple risk factors. Does not appear in any significant distress at this time. Denies other infectious symptoms at this point such as fever, shortness of breath, nausea or vomiting, sore throat, or cough. Creatinine returned to 1.65 similar to baseline with a GFR of the high 30s. Given the wish to exclude an LVO or significant stenoses that may require intervention did proceed with CT scan with contrast with some IV hydration. Blood work otherwise without significant anemia or leukocytosis. Mild hypokalemia 3.3 but no other severe electrolyte abnormality noted. CT without evidence of acute hemorrhage midline shift or infarct with a new age- indeterminate lacunar infarct in the right caudate nuclear is new from last June. 60% narrowing of the distal cervical right ICA with multiple other stenoses but no other acute occlusions noted. Discussed plan with patient and daughter at bedside. Given symptoms recommended that he come in for further stroke evaluation. DIAGNOSIS: Slurred speech, hypertension, CKD DISPOSITION: Hospitalist will evaluate Patient was agreeable with this plan. Past Med/Surg History Medical History Ambulatory dysfunction CAD (coronary artery disease) CHI (closed head injury) CKD (chronic kidney disease) stage 3, GFR 30-59 ml/min CVA (cerebral vascular accident) Depression Diaphragmatic paralysis Diarrhea Diarrhea Generalized weakness GERD (gastroesophageal reflux disease) HTN (hypertension) Hypercholesteremia Hypertriglyceridemia Hypotension Left rib fracture Presence of arterial stent Pressure ulcer of right buttock Restless leg syndrome TIA (transient ischemic attack) Type II diabetes mellitus Surgical History H/O knee surgery H/O vasectomy History of angioplasty of peripheral vessel Hx of colonoscopy S/P CABG x 3 Family History Grandfather Colorectal cancer Mother Diabetes Hypertension Brother Stroke Social History Smoking Status: Never smoker Tobacco Type: Cigarettes Second Hand Exposure: No; Hx Alcohol Use: Yes Alcohol type: beer Hx Substance Use: No Preferred Language: Wolof Communication Ability: Effective Hospice Care Consultant Required: No Beliefs That Will Affect Care: None marital status: Single Current Living Situation: Alone Current Living Situation Comment: JUST DISCHARGED FROM [facility] TO HOME ALONE current occupational status: retired Other Information That Helps Us Care for You: No Feels Safe at Home: Yes Safety Concerns: Feels Safe At This Time Assistive Devices: Walker and Wheelchair Assistive Devices Comment: Patient uses a hemiwalker at home and a left leg brace Allergies Allergies Allergy/AdvReac Type Severity Reaction Status Date / Time Corticosteroids Allergy Unknown Unknown Verified 07/27/22 10:43 (Glucocorticoids) niacin Allergy Unknown ARTHRALGIAS Verified 07/27/22 10:43 FROM ADVICOR telithromycin Allergy Unknown ARTHRALGIAS Verified 07/27/22 10:43 FROM ADVICOR atorvastatin AdvReac Intermediate Muscle Pain Verified 07/27/22 10:43 lovastatin AdvReac Intermediate ARTHRALGIAS Verified 07/27/22 10:43 FROM ADVICOR Wfanyio-IGO-HqN Reductase AdvReac Intermediate Muscle Pain Verified 07/27/22 10:43 Inhibitor [Hiexhev-Mwc-Ejm Reductase Inhibitor] Home Meds Home Medications Medication Instructions Recorded Confirmed ezetimibe 10 mg tablet 10 mg PO QAM 11/11/19 07/27/22 fenofibrate nanocrystallized 48 mg 48 mg PO QAM 11/27/20 07/27/22 tablet apixaban 5 mg tablet (Eliquis) 5 mg PO BID 01/17/21 07/27/22 ferrous sulfate 325 mg (65 mg 325 mg PO AMPM 01/17/21 07/27/22 iron) tablet metoprolol succinate 25 mg 25 mg PO HS 01/17/21 07/27/22 tablet,extended release 24 hr cholecalciferol (vitamin D3) 50 2,000 unit PO QAM 01/27/21 07/27/22 mcg (2,000 unit) capsule (Vitamin D3) docusate sodium 100 mg capsule 100 mg PO TID 01/27/21 07/27/22 multivitamin with minerals 1 tab PO DAILY 03/16/21 07/27/22 omeprazole 20 mg capsule,delayed 20 mg PO BID 03/16/21 07/27/22 release acetaminophen 325 mg tablet 650 mg PO Q4H PRN Pain, Mild 07/22/21 07/27/22 (Tylenol) ropinirole 0.5 mg tablet 1 mg PO HS 07/22/21 07/27/22 Previous Rx's Medication Instructions Recorded clopidogrel 75 mg tablet 75 mg PO QAM #30 tabs 01/29/21 vitamin B complex (Vitamins B 1 tab PO QAM #30 caps 01/30/21 Complex capsule) tamsulosin 0.4 mg capsule 0.4 mg PO DAILY #90 caps 07/01/22 Results & Data (ED) Vital Signs Vital Signs - 24 hr 07/27/22 08:36 07/27/22 09:11 07/27/22 09:11 Temperature 37.4 C Temperature Source Temporal Artery Scan Pulse Rate 85 Pulse Rate [Right Brachial] 71 Respiratory Rate 18 18 Respiratory Effort / Characteristics Non-Labored Spontaneous Non-Labored Respiratory Depth Normal Normal Respiratory Pattern Regular Blood Pressure 142/87 H Blood Pressure [Right Arm] 138/84 Blood Pressure Mean 105 Blood Pressure Mean [Right Arm] 102 Blood Pressure Position Sitting Pulse Oximetry 97 95 96 Oxygen Delivery Method Room Air Room Air Room Air Sepsis New/Unexplained Change in Mental Status No Sepsis Action Taken by Nursing No Action Required 07/27/22 11:09 Temperature Temperature Source Pulse Rate Pulse Rate [Right Brachial] 68 Respiratory Rate 18 Respiratory Effort / Characteristics Non-Labored Respiratory Depth Normal Respiratory Pattern Regular Blood Pressure Blood Pressure [Right Arm] 159/100 H Blood Pressure Mean Blood Pressure Mean [Right Arm] 119 Blood Pressure Position Pulse Oximetry 98 Oxygen Delivery Method Room Air Sepsis New/Unexplained Change in Mental Status Sepsis Action Taken by Nursing Laboratory Data Result diagrams: 07/27/22 08:55 07/27/22 08:55 Lab Results 07/27/22 07/27/22 07/27/22 Range/Units 08:55 08:55 08:55 WBC 9.35 (4.8-10.8) K/ul RBC 4.86 (4.63-6.08) M/uL Hgb 15.1 (14.0-18.0) g/dl POC Hgb (14.0-18.0) g/dl Hct 43.5 (40.1-51.0) % POC Hct (42-52) % MCV 89.5 (80.0-100.0) fL MCH 31.1 (25.0-34.0) pg MCHC 34.7 (32.0-36.0) g/dL RDW Std Deviation 42.6 (36.4-46.3) fL RDW Coeff of Brice 13.0 (11.5-14.5) % Plt Count 157 (130-400) K/uL MPV 11.6 (9.4-12.4) fL Immature Gran % (Auto) 0.7 % Neut % (Auto) 71.9 % Lymph % (Auto) 16.6 % [place] % (Auto) 6.6 % Eos % (Auto) 3.3 % Baso % (Auto) 0.9 % Neut # (Auto) 6.72 H (1.4-6.5) K/uL Lymph # (Auto) 1.55 (1.2-3.4) K/uL [place] # (Auto) 0.62 (0.24-0.82) K/uL Eos # (Auto) 0.31 (0-0.50) K/uL Baso # (Auto) 0.08 (0-0.2) K/uL Immature Gran # (Auto) 0.07 H (0.00-0.02) K/uL PT 11.3 (9.0-12.0) Seconds INR 1.1 (0.9-1.1) APTT 32.8 H (21.0-31.0) Seconds PTT Ratio 1.2 POC Sodium (135-144) mmol/L Sodium 139 (136-145) mmol/L POC Potassium (3.3-5.0) mmol/L Potassium 3.3 L (3.5-5.1) mmol/L POC Chloride (101-112) mmol/L Chloride 105 (98-107) mmol/L Carbon Dioxide 27 (21-32) mmol/L POC Total CO2 (24-31) mmol/L Anion Gap 7 (3-11) POC Anion Gap (16-25) mmol/L POC BUN (7-18) mg/dl BUN 13 (6-23) mg/dl Creatinine 1.65 H (0.6-1.4) mg/dl POC Creatinine (0.6-1.3) mg/dl Est Cr Clr Drug Dosing 36.8 ml/min Est GFR ( Amer) 46.0 ml/min Est GFR (Non-Af Amer) 39.7 ml/min BUN/Creatinine Ratio 7.9 L (10-20) Glucose 175 H (70-99(Fasting)) mg/dl POC Glucose (other) (70-99) mg/dl Calcium 9.0 (8.5-10.1) mg/dl POC Ioniz Calcium Delmy (1.12-1.32) mmol/l Magnesium 1.7 (1.7-2.4) mg/dl Total Bilirubin 0.8 (0.2-1.0) mg/dl AST 23 (13-39) U/L ALT 23 (7-52) U/L Alkaline Phosphatase 62 (34-104) U/L Troponin I High Sens 10.0 (0-20) pg/ml Total Protein 6.6 (6.0-8.3) gm/dl Albumin 4.0 (3.4-5.0) gm/dl Globulin 2.6 (2.5-4.0) gm/dl Albumin/Globulin Ratio 1.5 (0.9-2) SARS-CoV-2, RNA, NAAT (NEGATIVE) 07/27/22 07/27/22 07/27/22 Range/Units 09:01 09:03 10:03 WBC (4.8-10.8) K/ul RBC (4.63-6.08) M/uL Hgb (14.0-18.0) g/dl POC Hgb 14.6 (14.0-18.0) g/dl Hct (40.1-51.0) % POC Hct 43 (42-52) % MCV (80.0-100.0) fL MCH (25.0-34.0) pg MCHC (32.0-36.0) g/dL RDW Std Deviation (36.4-46.3) fL RDW Coeff of Brice (11.5-14.5) % Plt Count (130-400) K/uL MPV (9.4-12.4) fL Immature Gran % (Auto) % Neut % (Auto) % Lymph % (Auto) % [place] % (Auto) % Eos % (Auto) % Baso % (Auto) % Neut # (Auto) (1.4-6.5) K/uL Lymph # (Auto) (1.2-3.4) K/uL [place] # (Auto) (0.24-0.82) K/uL Eos # (Auto) (0-0.50) K/uL Baso # (Auto) (0-0.2) K/uL Immature Gran # (Auto) (0.00-0.02) K/uL PT (9.0-12.0) Seconds INR (0.9-1.1) APTT (21.0-31.0) Seconds PTT Ratio POC Sodium 141 (135-144) mmol/L Sodium (136-145) mmol/L POC Potassium 3.3 (3.3-5.0) mmol/L Potassium (3.5-5.1) mmol/L POC Chloride 102 (101-112) mmol/L Chloride (98-107) mmol/L Carbon Dioxide (21-32) mmol/L POC Total CO2 26 (24-31) mmol/L Anion Gap (3-11) POC Anion Gap 16.0 (16-25) mmol/L POC BUN 12 (7-18) mg/dl BUN (6-23) mg/dl Creatinine (0.6-1.4) mg/dl POC Creatinine 1.7 H (0.6-1.3) mg/dl Est Cr Clr Drug Dosing ml/min Est GFR ( Amer) ml/min Est GFR (Non-Af Amer) ml/min BUN/Creatinine Ratio (10-20) Glucose (70-99(Fasting)) mg/dl POC Glucose (other) 175 H (70-99) mg/dl Calcium (8.5-10.1) mg/dl POC Ioniz Calcium Delmy 1.16 (1.12-1.32) mmol/l Magnesium (1.7-2.4) mg/dl Total Bilirubin (0.2-1.0) mg/dl AST (13-39) U/L ALT (7-52) U/L Alkaline Phosphatase (34-104) U/L Troponin I High Sens (0-20) pg/ml Total Protein (6.0-8.3) gm/dl Albumin (3.4-5.0) gm/dl Globulin (2.5-4.0) gm/dl Albumin/Globulin Ratio (0.9-2) SARS-CoV-2, RNA, NAAT See Comment NEGATIVE (NEGATIVE) Administered Medications Potassium Chloride (K Christiano / Wtr) 10 meq in 100 mls @ 100 mls/hr IV Q1H RUPINDER Stop: 07/27/22 17:03 Last Admin: 07/27/22 14:34 Dose: 100 mls/hr Documented By: Discontinued Medications Lactated Ringer's (Lr) 500 mls @ 999 mls/hr IV .Q31M ONE Stop: 07/27/22 10:13 Last Infusion: 07/27/22 10:42 Dose: 0 mls/hr Documented By: Admin: 07/27/22 10:11 Dose: 999 mls/hr Documented By: BRYON Ioversol (Optiray 320 500ml) 120 ml IV ONCE ONE Stop: 07/27/22 10:00 Last Admin: 07/27/22 10:00 Dose: 120 ml Documented By: MAGO Imaging Data Radiologist's Impression: Head CT 07/27/22 08:58 CT angio head w con, CT head/brain wo con, CT angio neck with con CLINICAL HISTORY: 76 years-old Male with Stroke Like Symptoms. Acute strokelike symptoms COMPARISON STUDY: Head CT 07/04/2021, CTA had and neck 01/27/2021 TECHNIQUE: Unenhanced axial CT scan of the brain is performed. Subsequently, following the IV administration of 120 cc of Optiray, CT angiogram of the brain was performed from the skull base to the vertex. Images are reviewed in the axial, sagittal, and coronal planes. 3-D MIPS images are created and assessed. IV contrast was administered without complication. CTA neck was also obtained. All measurements were obtained according to NASCET criteria. A dose lowering technique was utilized adhering to the principles of ALARA. CT DOSE: 2041.47 mGycm FINDINGS: CT BRAIN: There is no acute intracranial hemorrhage, midline shift, hydrocephalus, intracranial mass, territorial ischemia or abnormal extra-axial collections. No abnormal intra-axial or extra-axial enhancement. Involutional changes with chronic microvascular ischemic disease. Chronic infarct of the right smith radiata and lentiform nucleus. Cerebral vascular calcifications. Age-indeterminate subcentimeter lacunar infarct of the right caudate nucleus, image 18 series 2 is new from prior. Trace right mastoid effusion. The left mastoid air cells are clear. No calvarial fracture. Paranasal sinuses are clear. CT ANGIOGRAM OF THE HEAD AND NECK: Three-vessel morphology of the thoracic aortic arch. Patency of the innominate and imaged subclavian arteries. There is less than 50% narrowing of the proximal left subclavian artery. There is moderate atherosclerotic plaque of the left greater than right carotid bulbs and proximal internal carotid arteries resulting in less than 50% stenosis bilaterally. 60% luminal narrowing involving the distal cervical segment right ICA on image 28 series 5 secondary to atherosclerotic plaque is new from prior. Mild multifocal luminal narrowing of the middle and anterior cerebral arteries is redemonstrated with approximately 50% luminal narrowing of the proximal left M1 segment. Dominant left vertebral artery. Multifocal luminal narrowing of the distal vertebral arteries is also stable. 50% narrowing of the mid basilar artery is stable. Unchanged multifocal luminal narrowing of the posterior cerebral arteries which includes a small area of high-grade luminal narrowing of the right posterior cerebral artery image 100 series 5. No aneurysm, dissection, high-grade stenosis or arterial occlusion identified. Cerebral venous sinuses are patent. No abnormal intracranial enhancement. No pneumothorax. Prior median sternotomy with incomplete bony healing of the sterno garett site. Unremarkable soft tissues. Multilevel degenerative changes of the spine. IMPRESSION: 1. No acute intracranial hemorrhage, midline shift or acute territorial infarct. 2. There is a subcentimeter age-indeterminate lacunar infarct of the right caudate nucleus, new from 07/04/2021. 3. 60% luminal narrowing involving the distal cervical segment right ICA has progressed from the 01/27/2021 exam. 4. Multifocal stenoses of the intracranial arteries otherwise appears generally unchanged from the prior exam. ACT 112: Negative or not required by law. The above report was generated using voice recognition software. It may contain grammatical, syntax or spelling errors. Electronically signed by: Edmar Whipple M.D. 07/27/2022 10:51 AM Head CTA 07/27/22 08:58 CT angio head w con, CT head/brain wo con, CT angio neck with con CLINICAL HISTORY: 76 years-old Male with Stroke Like Symptoms. Acute strokelike symptoms COMPARISON STUDY: Head CT 07/04/2021, CTA had and neck 01/27/2021 TECHNIQUE: Unenhanced axial CT scan of the brain is performed. Subsequently, following the IV administration of 120 cc of Optiray, CT angiogram of the brain was performed from the skull base to the vertex. Images are reviewed in the axial, sagittal, and coronal planes. 3-D MIPS images are created and assessed. IV contrast was administered without complication. CTA neck was also obtained. All measurements were obtained according to NASCET criteria. A dose lowering technique was utilized adhering to the principles of ALARA. CT DOSE: 2041.47 mGycm FINDINGS: CT BRAIN: There is no acute intracranial hemorrhage, midline shift, hydrocephalus, intracranial mass, territorial ischemia or abnormal extra-axial collections. No abnormal intra-axial or extra-axial enhancement. Involutional changes with chronic microvascular ischemic disease. Chronic infarct of the right smith radiata and lentiform nucleus. Cerebral vascular calcifications. Age- indeterminate subcentimeter lacunar infarct of the right caudate nucleus, image 18 series 2 is new from prior. Trace right mastoid effusion. The left mastoid air cells are clear. No calvarial fracture. Paranasal sinuses are clear. CT ANGIOGRAM OF THE HEAD AND NECK: Three-vessel morphology of the thoracic aortic arch. Patency of the innominate and imaged subclavian arteries. There is less than 50% narrowing of the proximal left subclavian artery. There is moderate atherosclerotic plaque of the left greater than right carotid bulbs and proximal internal carotid arteries resulting in less than 50% stenosis bilaterally. 60% luminal narrowing involving the distal cervical segment right ICA on image 28 series 5 secondary to atherosclerotic plaque is new from prior. Mild multifocal luminal narrowing of the middle and anterior cerebral arteries is redemonstrated with approximately 50% luminal narrowing of the proximal left M1 segment. Dominant left vertebral artery. Multifocal luminal narrowing of the distal vertebral arteries is also stable. 50% narrowing of the mid basilar artery is stable. Unchanged multifocal luminal narrowing of the posterior cerebral arteries which includes a small area of high-grade luminal narrowing of the right posterior cerebral artery image 100 series 5. No aneurysm, dissection, high-grade stenosis or arterial occlusion identified. Cerebral venous sinuses are patent. No abnormal intracranial enhancement. No pneumothorax. Prior median sternotomy with incomplete bony healing of the sternotomy site. Unremarkable soft tissues. Multilevel degenerative changes of the spine. IMPRESSION: 1. No acute intracranial hemorrhage, midline shift or acute territorial infarct. 2. There is a subcentimeter age-indeterminate lacunar infarct of the right caudate nucleus, new from 07/04/2021. 3. 60% luminal narrowing involving the distal cervical segment right ICA has progressed from the 01/27/2021 exam. 4. Multifocal stenoses of the intracranial arteries otherwise appears generally unchanged from the prior exam. ACT 112: Negative or not required by law. The above report was generated using voice recognition software. It may contain grammatical, syntax or spelling errors. Electronically signed by: Edmar Whipple M.D. 07/27/2022 10:51 AM Neck CTA 07/27/22 08:58 CT angio head w con, CT head/brain wo con, CT angio neck with con CLINICAL HISTORY: 76 years-old Male with Stroke Like Symptoms. Acute strokelike symptoms COMPARISON STUDY: Head CT 07/04/2021, CTA had and neck 01/27/2021 TECHNIQUE: Unenhanced axial CT scan of the brain is performed. Subsequently, following the IV administration of 120 cc of Optiray, CT angiogram of the brain was performed from the skull base to the vertex. Images are reviewed in the axial, sagittal, and coronal planes. 3-D MIPS images are created and assessed. IV contrast was administered without complication. CTA neck was also obtained. All measurements were obtained according to NASCET criteria. A dose lowering technique was utilized adhering to the principles of ALARA. CT DOSE: 2041.47 mGycm FINDINGS: CT BRAIN: There is no acute intracranial hemorrhage, midline shift, hydrocephalus, intracranial mass, territorial ischemia or abnormal extra-axial collections. No abnormal intra-axial or extra-axial enhancement. Involutional changes with chronic microvascular ischemic disease. Chronic infarct of the right smith radiata and lentiform nucleus. Cerebral vascular calcifications. Age- indeterminate subcentimeter lacunar infarct of the right caudate nucleus, image 18 series 2 is new from prior. Trace right mastoid effusion. The left mastoid air cells are clear. No calvarial fracture. Paranasal sinuses are clear. CT ANGIOGRAM OF THE HEAD AND NECK: Three-vessel morphology of the thoracic aortic arch. Patency of the innominate and imaged subclavian arteries. There is less than 50% narrowing of the proximal left subclavian artery. There is moderate atherosclerotic plaque of the left greater than right carotid bulbs and proximal internal carotid arteries resulting in less than 50% stenosis bilaterally. 60% luminal narrowing involving the distal cervical segment right ICA on image 28 series 5 secondary to atherosclerotic plaque is new from prior. Mild multifocal luminal narrowing of the middle and anterior cerebral arteries is redemonstrated with approximately 50% luminal narrowing of the proximal left M1 segment. Dominant left vertebral artery. Multifocal luminal narrowing of the distal vertebral arteries is also stable. 50% narrowing of the mid basilar artery is stable. Unchanged multifocal luminal narrowing of the posterior cerebral arteries which includes a small area of high-grade luminal narrowing of the right posterior cerebral artery image 100 series 5. No aneurysm, dissection, high-grade stenosis or arterial occlusion identified. Cerebral venous sinuses are patent. No abnormal intracranial enhancement. No pneumothorax. Prior median sternotomy with incomplete bony healing of the sternotomy site. Unremarkable soft tissues. Multilevel degenerative changes of the spine. IMPRESSION: 1. No acute intracranial hemorrhage, midline shift or acute territorial infarct. 2. There is a subcentimeter age-indeterminate lacunar infarct of the right caudate nucleus, new from 07/04/2021. 3. 60% luminal narrowing involving the distal cervical segment right ICA has progressed from the 01/27/2021 exam. 4. Multifocal stenoses of the intracranial arteries otherwise appears generally unchanged from the prior exam. ACT 112: Negative or not required by law. The above report was generated using voice recognition software. It may contain grammatical, syntax or spelling errors. Electronically signed by: Edmar Whipple M.D. 07/27/2022 10:51 AM Discharge Plan Visit Data Chief Complaint: Stroke/CVA Symptoms Stated Complaint: SLURRED SPEECH,WEAKNESS ED Provider: Edgard Thomas Discharge Problem: Stroke-like symptoms, HTN (hypertension), CKD (chronic kidney disease) stage 3, GFR 30-59 ml/min, Anticoagulated Patient Disposition: Being Evaluated by Hospitalist Discharge Instructions Interventions: ED Discharge Assessment Last Done: 07/27/22 13:53
[2022-07-27] MEDS ORDERED: LACTATED RINGER'S 500 ML IV ONE (09:43)
[2022-07-27] MEDS ORDERED: OPTIRAY 320 500ml IV ONE (09:59)
--- NOTE | 2022-07-27 10:53 | CT Scan Report ---
CT angio head w con, CT head/brain wo con, CT angio neck with con CLINICAL HISTORY: 76 years-old Male with Stroke Like Symptoms. Acute strokelike symptoms COMPARISON STUDY: Head CT 07/04/2021, CTA had and neck 01/27/2021 TECHNIQUE: Unenhanced axial CT scan of the brain is performed. Subsequently, following the IV adminis tration of 120 cc of Optiray, CT angiogram of the brain was performed from the skull base to the vert ex. Images are reviewed in the axial, sagittal, and coronal planes. 3-D MIPS images are created and a ssessed. IV contrast was administered without complication. CTA neck was also obtained. All measureme nts were obtained according to NASCET criteria. A dose lowering technique was utilized adhering to th e principles of ALARA. CT DOSE: 2041.47 mGycm FINDINGS: CT BRAIN: There is no acute intracranial hemorrhage, midline shift, hydrocephalus, intracranial mass, territori al ischemia or abnormal extra-axial collections. No abnormal intra-axial or extra-axial enhancement. Involutional changes with chronic microvascular ischemic disease. 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 Cerebral vascular calcifications. Age-indeterminate subcentimeter la cunar infarct of the right caudate nucleus, image 18 series 2 is new from prior. Trace right mastoid effusion. The left mastoid air cells are clear. No calvarial fracture. Paranasal sinuses are clear. CT ANGIOGRAM OF THE HEAD AND NECK: Three-vessel morphology of the thoracic aortic arch. Patency of the innominate and imaged subclavian arteries. There is less than 50% narrowing of the proximal left subclavian artery. There is moderate atherosclerotic plaque of the left greater than right carotid bulbs and proximal internal carotid art eries resulting in less than 50% stenosis bilaterally. 60% luminal narrowing involving the distal cer vical segment right ICA on image 28 series 5 secondary to atherosclerotic plaque is new from prior. M ild multifocal luminal narrowing of the middle and anterior cerebral arteries is redemonstrated with approximately 50% luminal narrowing of the proximal left M1 segment. Dominant left vertebral artery. Multifocal luminal narrowing of the distal vertebral arteries is also stable. 50% narrowing of the mi d basilar artery is stable. Unchanged multifocal luminal narrowing of the posterior cerebral arteries which includes a small area of high-grade luminal narrowing of the right posterior cerebral artery i mage 100 series 5. No aneurysm, dissection, high-grade stenosis or arterial occlusion identified. Cerebral venous sinuses are patent. No abnormal intracranial enhancement. No pneumothorax. Prior medi an sternotomy with incomplete bony healing of the sternotomy site. Unremarkable soft tissues. Multile sanjiv degenerative changes of the spine. IMPRESSION: 1. No acute intracranial hemorrhage, midline shift or acute territorial infarct. 2. There is a subcentimeter age-indeterminate lacunar infarct of the right caudate nucleus, new from 07/04/2021. 3. 60% luminal narrowing involving the distal cervical segment right ICA has progressed from the 2020 exam. 4. Multifocal stenoses of the intracranial arteries otherwise appears generally unchanged from the pr ior exam. ACT 112: Negative or not required by law. The above report was generated using voice recognition software. It may contain grammatical, syntax o r spelling errors. Electronically signed by: Edmar Whipple M.D. 07/27/2022 10:51 AM
--- NOTE | 2022-07-27 11:02 | Electrocardiogram Report ---
Test Reason : Blood Pressure : / mmHG Vent. Rate : 077 BPM Atrial Rate : 077 BPM P-R Int : 158 ms QRS Dur : 092 ms QT Int : 414 ms P-R-T Axes : 050 -14 039 degrees QTc Int : 468 ms Normal sinus rhythm Possible Left atrial enlargement Borderline ECG When compared with ECG of 04-JUL-2021 01:03, Premature atrial complexes are no longer Present Confirmed by Inocente Mcpherson ([id number]) on 07/27/2022 11:01:43 AM Referred By: REFERRED SELF Confirmed By:Mahad Mcpherson
--- NOTE | 2022-07-27 11:56 | History & Physical Report ---
Date of Service July 27, 2022 Assessment & Plan (1) Stroke-like symptoms: Plan: -Admit to med/tele -Patient is currently afebrile, hemodynamically stable, and stable on RA -Patient appears back to his baseline at this time, last known well prior to symptoms this am was last night at approximately 10 pm. Because of this and because he is already on Plavix and Eliquis he was not given TNK in the ED -CT of the head/CTA of the head and neck showing subcentimeter age-indeterminate lacunar infarct of the right caudate nucleus, new from 07/04/2021. -Will obtain MRI of the brain and TTE with bubble study for further workup, will consult Neurology for recommendations regarding restarting Aspirin in addition to current therapy of Eliquis and Plavix. Patient was reportedly not taking Elqiuis and Plavix as prescribed so this likely could be contributing to current issues. -PT/OT and speech therapy consults placed -Will FU on imaging -AM CBC and BMP (2) Hypokalemia: Plan: -Noted to be 3.3 today, Mag ordered by ED and in process -Will order IV KCL 10 meq x 3 doses for now as he is NPO -FU with Mag level (3) Atrial fibrillation: Plan: -Currently NSR and rate controlled -Continue Elqiuis and Metoprolol (4) HTN (hypertension): Plan: -Stable -Continue metoprolol (5) DM (diabetes mellitus): Plan: -Currently controlling BSG with diet -Ordered A1C, will use SSI while admitted (6) GERD (gastroesophageal reflux disease): Plan: -Continue omeprazole (7) Restless leg syndrome: Plan: -Continue Requip (8) Hypertriglyceridemia: Plan: -Continue Zetia and Fenofibrate (9) CKD (chronic kidney disease) stage 3, GFR 30-59 ml/min: Plan: -Stable (10) S/P CABG x 3: Plan: -Continue plavix and eliquis for now -Will see if Neurology would want to restart aspirin (11) Left hemiplegia: Plan: -at baseline Plan The patient was discussed with Dr. Mark at the time of the admission History of Present Illness Chief Complaint: Stroke-like symptoms Primary Care Provider: DO Shailesh Muñoz is a 76 year old male with a PMH significant for previous stroke (12/2019) with left-sided residual weakness on Plavix, afib on Eliquis, HTN, hyperlipidemia, DM II, CAD S/P CABG x 3 (2019), CKD, restless leg syndrome, depression, GERD, and sensorineural hearing loss who presented to the [facility] ED on 07/27/22 with a chief complaint of new stoke-like symptoms. In the ED the patient was found to be afebrile, hemodynamically stable, and stable on RA. Labs were remarkable for a potassium of 3.3, Cr of 1.65 (baseline appears to be close to 1.6), glucose of 175, and covid negative. CT of the head/jadon and CTA of the brain and neck showed "1. No acute intracranial hemorrhage, midline shift or acute territorial infarct. 2. There is a subcentimeter age-indeterminate lacunar infarct of the right caudate nucleus, new from 07/04/2021. 3. 60% luminal narrowing involving the distal cervical segment right ICA has progressed from the 01/27/2021 exam. 4. Multifocal stenoses of the intracranial arteries otherwise appears generally unchanged from the prior exam. Prior to admission the patient was given 1L lactated ringer's. We were asked to admit the patient for continue stroke workup/evaluation. At the time of the exam the patient was resting comfortably in bed in no acute distress, his family had left prior to my arrival. He states that he was in his normal state of health as of 10 pm yesterday. When he woke up this morning around approximately 0630 he thought his legs felt "funny". He yelled for his sister who thought that his speech was off from baseline and that he was difficult to understand. Because of his previous stroke he came to the ED to be evaluated. He denies recent fevers or chills, changes in vision, hearing, taste, and smell, chest pain, SOB, abdominal pain, nausea, vomiting, diarrhea, dysuria, hematuria, and recent falls. When asked, his legs feel back to baseline and he feels as though his speech is also back to baseline. He was able to take his am medications prior to coming to the ED. He uses a walker at baseline to ambulate and also uses a brace on his left leg. He confirms that he has severe left-sided weakness at baseline. Per the ED staff, his daughter told them that the patient was taking his Eliquis and plavix infrequently. Per chart review, he last saw Neurology in 2020, at that time that discontinued his Aspirin as he was doing well on the Plavix and Eliquis. I spoke to the patient regarding code status, he wishes to be a Full Code. If he could not make decisions for himself he would like his daughters to be the decision makers. Allergies Allergy/AdvReac Type Severity Reaction Status Date / Time Corticosteroids Allergy Unknown Unknown Verified 07/27/22 10:43 (Glucocorticoids) niacin Allergy Unknown ARTHRALGIAS Verified 07/27/22 10:43 FROM ADVICOR telithromycin Allergy Unknown ARTHRALGIAS Verified 07/27/22 10:43 FROM ADVICOR atorvastatin AdvReac Intermediate Muscle Pain Verified 07/27/22 10:43 lovastatin AdvReac Intermediate ARTHRALGIAS Verified 07/27/22 10:43 FROM ADVICOR Dvuvomp-REU-CuI Reductase AdvReac Intermediate Muscle Pain Verified 07/27/22 10:43 Inhibitor [Aovffya-Jnq-Ocv Reductase Inhibitor] Home Medications Medication Instructions Recorded Confirmed Type ezetimibe 10 mg tablet 10 mg PO QAM 11/11/19 07/27/22 History fenofibrate nanocrystallized 48 mg 48 mg PO QAM 11/27/20 07/27/22 History tablet apixaban 5 mg tablet (Eliquis) 5 mg PO BID 01/17/21 07/27/22 History ferrous sulfate 325 mg (65 mg 325 mg PO AMPM 01/17/21 07/27/22 History iron) tablet metoprolol succinate 25 mg 25 mg PO HS 01/17/21 07/27/22 History tablet,extended release 24 hr cholecalciferol (vitamin D3) 50 2,000 unit PO QAM 01/27/21 07/27/22 History mcg (2,000 unit) capsule (Vitamin D3) docusate sodium 100 mg capsule 100 mg PO TID 01/27/21 07/27/22 History clopidogrel 75 mg tablet 75 mg PO QAM #30 tabs 01/29/21 07/27/22 Rx vitamin B complex (Vitamins B 1 tab PO QAM #30 caps 01/30/21 07/27/22 Rx Complex capsule) multivitamin with minerals 1 tab PO DAILY 03/16/21 07/27/22 History omeprazole 20 mg capsule,delayed 20 mg PO BID 03/16/21 07/27/22 History release acetaminophen 325 mg tablet 650 mg PO Q4H PRN Pain, Mild 07/22/21 07/27/22 History (Tylenol) ropinirole 0.5 mg tablet 1 mg PO HS 07/22/21 07/27/22 History tamsulosin 0.4 mg capsule 0.4 mg PO DAILY #90 caps 07/01/22 07/27/22 Rx Past Med/Surg History Medical History Ambulatory dysfunction CAD (coronary artery disease) CHI (closed head injury) CKD (chronic kidney disease) stage 3, GFR 30-59 ml/min CVA (cerebral vascular accident) Depression Diaphragmatic paralysis Diarrhea Diarrhea Generalized weakness GERD (gastroesophageal reflux disease) HTN (hypertension) Hypercholesteremia Hypertriglyceridemia Hypotension Left rib fracture Presence of arterial stent Pressure ulcer of right buttock Restless leg syndrome TIA (transient ischemic attack) Type II diabetes mellitus Surgical History H/O knee surgery H/O vasectomy History of angioplasty of peripheral vessel Hx of colonoscopy S/P CABG x 3 Family History Grandfather Colorectal cancer Mother Diabetes Hypertension Brother Stroke Social History Smoking Status: Never smoker Tobacco Type: Cigarettes Second Hand Exposure: No; Hx Alcohol Use: No Hx Substance Use: No Preferred Language: Cambodian Communication Ability: Effective Ceo Required: No Beliefs That Will Affect Care: None marital status: Single Current Living Situation: Alone Current Living Situation Comment: JUST [facility] HOME ALONE current occupational status: retired Feels Safe at Home: Yes Assistive Devices: Walker and Wheelchair Review of Systems Review of Systems: Denies current fever, chills, headache, changes in vision, hearing, taste, and smell, chest pain, SOB, cough, abdominal pain, nausea, vomiting, diarrhea, hematemesis, melena, dysuria, hematuria, and recent falls. All systems have been reviewed and are otherwise negative. Physical Exam Physical Exam: Physical Exam: General: In no acute distress, stated age, well-nourished, good hygiene HEENT: Normocephalic, atraumatic, no scleral icterus, pupils around round, symmetrical, and reactive to light, moist mucus membranes, trachea midline, no thyromegaly Chest/Pulm: No respiratory distress, symmetrical chest expansion, clear breath sounds throughout Cardiac: RRR, no murmurs noted Abdomen: Negative for ascites and bruising, normoactive bowel sounds, soft, non-tender to palpation throughout Musculoskeletal: No acute trauma, patient with baseline left-sided weakness, intact strenght in the right upper and lower extremities Extremities: Radial, dorsalis pedis, and posterior tibial pulses are intact and symmetrical, no edema noted in the BL LE's Skin: Warm, dry, no rashes , lesions, or scars noted Neuro: Alert and oriented to person, place, month, year, and president, no focal defects, CN II-XII tested and intact, baseline left-sided weakness, speech is fluent and coherent Psych: No acute distress, calm and cooperative during the exam Results & Data Results & Data ([facility]) Vital Signs (Past 12 Hours) Vital Signs Temp Pulse Pulse Resp BP BP Pulse Ox 07/27/22 11:09 68 18 159/100 H 98 07/27/22 09:11 71 18 138/84 96 07/27/22 09:11 95 07/27/22 08:36 37.4 C 85 18 142/87 H 97 O2 Del Method 07/27/22 11:09 Room Air 07/27/22 09:11 Room Air 07/27/22 09:11 Room Air 07/27/22 08:36 Room Air Laboratory Results Abnormal lab results 07/27/22 07/27/22 07/27/22 Range/Units 08:55 08:55 08:55 Neut # (Auto) 6.72 H (1.4-6.5) K/uL Immature Gran # (Auto) 0.07 H (0.00-0.02) K/uL APTT 32.8 H (21.0-31.0) Seconds Potassium 3.3 L (3.5-5.1) mmol/L Creatinine 1.65 H (0.6-1.4) mg/dl POC Creatinine (0.6-1.3) mg/dl BUN/Creatinine Ratio 7.9 L (10-20) Glucose 175 H (70-99(Fasting)) mg/dl POC Glucose (other) (70-99) mg/dl 07/27/22 Range/Units 09:01 Neut # (Auto) (1.4-6.5) K/uL Immature Gran # (Auto) (0.00-0.02) K/uL APTT (21.0-31.0) Seconds Potassium (3.5-5.1) mmol/L Creatinine (0.6-1.4) mg/dl POC Creatinine 1.7 H (0.6-1.3) mg/dl BUN/Creatinine Ratio (10-20) Glucose (70-99(Fasting)) mg/dl POC Glucose (other) 175 H (70-99) mg/dl Diagnostic Findings Head CT 07/27/22 08:58 CT angio head w con, CT head/brain wo con, CT angio neck with con CLINICAL HISTORY: 76 years-old Male with Stroke Like Symptoms. Acute strokelike symptoms COMPARISON STUDY: Head CT 07/04/2021, CTA had and neck 01/27/2021 TECHNIQUE: Unenhanced axial CT scan of the brain is performed. Subsequently, following the IV administration of 120 cc of Optiray, CT angiogram of the brain was performed from the skull base to the vertex. Images are reviewed in the axial, sagittal, and coronal planes. 3-D MIPS images are created and assessed. IV contrast was administered without complication. CTA neck was also obtained. All measurements were obtained according to NASCET criteria. A dose lowering technique was utilized adhering to the principles of ALARA. CT DOSE: 2041.47 mGycm FINDINGS: CT BRAIN: There is no acute intracranial hemorrhage, midline shift, hydrocephalus, intracranial mass, territorial ischemia or abnormal extra-axial collections. No abnormal intra-axial or extra-axial enhancement. Involutional changes with chronic microvascular ischemic disease. Chronic infarct of the right smith radiata and lentiform nucleus. Cerebral vascular calcifications. Age- indeterminate subcentimeter lacunar infarct of the right caudate nucleus, image 18 series 2 is new from prior. Trace right mastoid effusion. The left mastoid air cells are clear. No calvarial fracture. Paranasal sinuses are clear. CT ANGIOGRAM OF THE HEAD AND NECK: Three-vessel morphology of the thoracic aortic arch. Patency of the innominate and imaged subclavian arteries. There is less than 50% narrowing of the proximal left subclavian artery. There is moderate atherosclerotic plaque of the left greater than right carotid bulbs and proximal internal carotid arteries resulting in less than 50% stenosis bilaterally. 60% luminal narrowing involving the distal cervical segment right ICA on image 28 series 5 secondary to atherosclerotic plaque is new from prior. Mild multifocal luminal narrowing of the middle and anterior cerebral arteries is redemonstrated with approximately 50% luminal narrowing of the proximal left M1 segment. Dominant left vertebral artery. Multifocal luminal narrowing of the distal vertebral arteries is also stable. 50% narrowing of the mid basilar artery is stable. Unchanged multifocal luminal narrowing of the posterior cerebral arteries which includes a small area of high-grade luminal narrowing of the right posterior cerebral artery image 100 series 5. No aneurysm, dissection, high-grade stenosis or arterial occlusion identified. Cerebral venous sinuses are patent. No abnormal intracranial enhancement. No pneumothorax. Prior median sternotomy with incomplete bony healing of the sternotomy site. Unremarkable soft tissues. Multilevel degenerative changes of the spine. IMPRESSION: 1. No acute intracranial hemorrhage, midline shift or acute territorial infarct. 2. There is a subcentimeter age-indeterminate lacunar infarct of the right caudate nucleus, new from 07/04/2021. 3. 60% luminal narrowing involving the distal cervical segment right ICA has progressed from the 01/27/2021 exam. 4. Multifocal stenoses of the intracranial arteries otherwise appears generally unchanged from the prior exam. ACT 112: Negative or not required by law. The above report was generated using voice recognition software. It may contain grammatical, syntax or spelling errors. Electronically signed by: Edmar Whipple M.D. 07/27/2022 10:51 AM Head CTA 07/27/22 08:58 CT angio head w con, CT head/brain wo con, CT angio neck with con CLINICAL HISTORY: 76 years-old Male with Stroke Like Symptoms. Acute st rokelike symptoms COMPARISON STUDY: Head CT 07/04/2021, CTA had and neck 01/27/2021 TECHNIQUE: Unenhanced axial CT scan of the brain is performed. Subsequently, following the IV administration of 120 cc of Optiray, CT angiogram of the brain was performed from the skull base to the vertex. Images are reviewed in the axial, sagittal, and coronal planes. 3-D MIPS images are created and assessed. IV contrast was administered without complication. CTA neck was also obtained. All measurements were obtained according to NASCET criteria. A dose lowering technique was utilized adhering to the principles of ALARA. CT DOSE: 2041.47 mGycm FINDINGS: CT BRAIN: There is no acute intracranial hemorrhage, midline shift, hydrocephalus, intracranial mass, territorial ischemia or abnormal extra-axial collections. No abnormal intra-axial or extra-axial enhancement. Involutional changes with chronic microvascular ischemic disease. Chronic infarct of the right smith radiata and lentiform nucleus. Cerebral vascular calcifications. Age- indeterminate subcentimeter lacunar infarct of the right caudate nucleus, image 18 series 2 is new from prior. Trace right mastoid effusion. The left mastoid air cells are clear. No calvarial fracture. Paranasal sinuses are clear. CT ANGIOGRAM OF THE HEAD AND NECK: Three-vessel morphology of the thoracic aortic arch. Patency of the innominate and imaged subclavian arteries. There is less than 50% narrowing of the proximal left subclavian artery. There is moderate atherosclerotic plaque of the left greater than right carotid bulbs and proximal internal carotid arteries resulting in less than 50% stenosis bilaterally. 60% luminal narrowing involving the distal cervical segment right ICA on image 28 series 5 secondary to atherosclerotic plaque is new from prior. Mild multifocal luminal narrowing of the middle and anterior cerebral arteries is redemonstrated with approximately 50% luminal narrowing of the proximal left M1 segment. Dominant left vertebral artery. Multifocal luminal narrowing of the distal vertebral arteries is also stable. 50% narrowing of the mid basilar artery is stable. Unchanged multifocal luminal narrowing of the posterior cerebral arteries which includes a small area of high-grade luminal narrowing of the right posterior cerebral artery image 100 series 5. No aneurysm, dissection, high-grade stenosis or arterial occlusion identified. Cerebral venous sinuses are patent. No abnormal intracranial enhancement. No pneumothorax. Prior median sternotomy with incomplete bony healing of the sternotomy site. Unremarkable soft tissues. Multilevel degenerative changes of the spine. IMPRESSION: 1. No acute intracranial hemorrhage, midline shift or acute territorial infarct. 2. There is a subcentimeter age-indeterminate lacunar infarct of the right caudate nucleus, new from 07/04/2021. 3. 60% luminal narrowing involving the distal cervical segment right ICA has progressed from the 01/27/2021 exam. 4. Multifocal stenoses of the intracranial arteries otherwise appears generally unchanged from the prior exam. ACT 112: Negative or not required by law. The above report was generated using voice recognition software. It may contain grammatical, syntax or spelling errors. Electronically signed by: Edmar Whipple M.D. 07/27/2022 10:51 AM Neck CTA 07/27/22 08:58 CT angio head w con, CT head/brain wo con, CT angio neck with con CLINICAL HISTORY: 76 years-old Male with Stroke Like Symptoms. Acute strokelike symptoms COMPARISON STUDY: Head CT 07/04/2021, CTA had and neck 01/27/2021 TECHNIQUE: Unenhanced axial CT scan of the brain is performed. Subsequently, following the IV administration of 120 cc of Optiray, CT angiogram of the brain was performed from the skull base to the vertex. Images are reviewed in the axial, sagittal, and coronal planes. 3-D MIPS images are created and assessed. IV contrast was administered without complication. CTA neck was also obtained. All measurements were obtained according to NASCET criteria. A dose lowering technique was utilized adhering to the principles of ALARA. CT DOSE: 2041.47 mGycm FINDINGS: CT BRAIN: There is no acute intracranial hemorrhage, midline shift, hydrocephalus, intracranial mass, territorial ischemia or abnormal extra-axial collections. No abnormal intra-axial or extra-axial enhancement. Involutional changes with chronic microvascular ischemic disease. Chronic infarct of the right smith radiata and lentiform nucleus. Cerebral vascular calcifications. Age- indeterminate subcentimeter lacunar infarct of the right caudate nucleus, image 18 series 2 is new from prior. Trace right mastoid effusion. The left mastoid air cells are clear. No calvarial fracture. Paranasal sinuses are clear. CT ANGIOGRAM OF THE HEAD AND NECK: Three-vessel morphology of the thoracic aortic arch. Patency of the innominate and imaged subclavian arteries. There is less than 50% narrowing of the proximal left subclavian artery. There is moderate atherosclerotic plaque of the left greater than right carotid bulbs and proximal internal carotid arteries resulting in less than 50% stenosis bilaterally. 60% luminal narrowing involving the distal cervical segment right ICA on image 28 series 5 secondary to atherosclerotic plaque is new from prior. Mild multifocal luminal narrowing of the middle and anterior cerebral arteries is redemonstrated with approximately 50% luminal narrowing of the proximal left M1 segment. Dominant left vertebral artery. Multifocal luminal narrowing of the distal vertebral arteries is also stable. 50% narrowing of the mid basilar artery is stable. Unchanged multifocal luminal narrowing of the posterior cerebral arteries which includes a small area of high-grade luminal narrowing of the right posterior cerebral artery image 100 series 5. No aneurysm, dissection, high-grade stenosis or arterial occlusion identified. Cerebral venous sinuses are patent. No abnormal intracranial enhancement. No pneumothorax. Prior median sternotomy with incomplete bony healing of the sternotomy site. Unremarkable soft tissues. Multilevel degenerative changes of the spine. IMPRESSION: 1. No acute intracranial hemorrhage, midline shift or acute territorial infarct. 2. There is a subcentimeter age-indeterminate lacunar infarct of the right caudate nucleus, new from 07/04/2021. 3. 60% luminal narrowing involving the distal cervical segment right ICA has progressed from the 01/27/2021 exam. 4. Multifocal stenoses of the intracranial arteries otherwise appears generally unchanged from the prior exam. ACT 112: Negative or not required by law. The above report was generated using voice recognition software. It may contain grammatical, syntax or spelling errors. Electronically signed by: Edmar Whipple M.D. 07/27/2022 10:51 AM ECG Additional Comments: Normal sinus rhythm Possible Left atrial enlargement Borderline ECG When compared with ECG of 04-JUL-2021 01:03, Premature atrial complexes are no longer Present Confirmed by Inocente Mcpherson ([id number]) on 07/27/2022 11:01:43 AM Code Status & VTE Plan Code Status FUll code VTE Prophylaxis Plan VTE Prophylaxis will be ordered: Yes Supervising Physician Co-Signing Physician Notes Patient seen and examined, chart reviewed, case discussed with Amando Duggan PA-C and I agree with the assessment and plan as above except as otherwise noted Labs and images reviewed 76-year-old male with history of past CVA 2020, residual left-sided deficits, A. fib on Eliquis, hyperlipidemia, hypertension, type II DM, CAD with CABG x3, CKD, GERD who presented to the emergency department after he woke up morning of admission with new dysarthria and leg weakness/funny feeling. Patient has returned to baseline by time of admission assessment. Does use a walker at baseline. At bedside patient reports that he has returned to his normal baseline, although notes his "left arm socks "and has weakness and poor coordination in his left side from his prior stroke. 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 Denies headache, dysarthria at time of visit. Lungs are clear heart rate is regular, patient with left- sided coordination/weakness, full strength to right echometer engineer, right hip flexion, right ankle dorsiflexion/plantarflexion. Strokelike symptoms: CT with no acute infarct, but new age-indeterminate right caudate infarct new from prior exam. Interval narrowing of right ICA. MRI pending. Agree with MRI and stroke work-up as above. Patient on Plavix/Eliquis [employer], neurology consulted for ?Triple therapy for 30 days. Patient is multiple statin intolerant, is on fenofibrate/Zetia instead. Lipid panel pending? PCSK9 if high Agree with management of chronic issues as above PG Care Time/CCT Total # of Minutes Spent Total Time Spent with Patient: Total time spent is greater than 50% in coordination of care (as documented) at patient's floor/unit and/or counseling patient: Coding Level of Care Code Established Pt INT OBSERVATION CARE 50M LVL 2 Patient Type Established Medical Decision Making Moderate Complexity Diagnoses Stroke-like symptoms R29.90 Hypokalemia E87.6 Atrial fibrillation I48.0 Atrial fibrillation type: paroxysmal HTN (hypertension) I10 Hypertension type: essential hypertension DM (diabetes mellitus) E11.9 Diabetes mellitus complication status: without complication Diabetes mellitus watermaster insulin use: without jail use Diabetes mellitus type: type 2 GERD (gastroesophageal reflux disease) K21.9 Esophagitis presence: esophagitis presence not specified Restless leg syndrome G25.81 Hypertriglyceridemia E78.1 CKD (chronic kidney disease) stage 3, GFR 30-59 ml/min N18.30 Chronic kidney disease stage 3 subtype: unspecified whether 3a or 3b S/P CABG x 3 Z95.1 Left hemiplegia G81.94 (1) DM (diabetes mellitus) Diabetes mellitus complication status: without complication Diabetes mellitus watermaster insulin use: without watermaster use Diabetes mellitus type: type 2 Qualified Code(s): E11.9 - Type 2 diabetes mellitus without complications (2) CKD (chronic kidney disease) stage 3, GFR 30-59 ml/min Chronic kidney disease stage 3 subtype: unspecified whether 3a or 3b Qualified Code(s): N18.30 - Chronic kidney disease, stage 3 unspecified (3) Atrial fibrillation Atrial fibrillation type: paroxysmal Qualified Code(s): I48.0 - Paroxysmal atrial fibrillation (4) GERD (gastroesophageal reflux disease) Esophagitis presence: esophagitis presence not specified Qualified Code(s): K21.9 - Gastro-esophageal reflux disease without esophagitis (5) HTN (hypertension) Hypertension type: essential hypertension Qualified Code(s): I10 - Essential (primary) hypertension
[2022-07-27] MEDS ORDERED: PHARMACIST DISCHARGE MED REC CONSULT PRN (12:09)
--- NOTE | 2022-07-27 13:39 | Magnetic Resonance Report ---
MR brain wo con HISTORY: 76 years-old Male Stroke workup acute strokelike symptoms COMPARISON: Head CT of same day TECHNIQUE: Multiplanar multisequence MRI of the brain was obtained without the use of IV contrast. FINDINGS: Degenerative changes of the imaged cervical spine. Midline structures appear unremarkable. No restric melo diffusion to suggest acute or subacute infarct. No acute intracranial hemorrhage, midline shift, abnormal extra axial collection, hydrocephalus or intracranial mass. No pathologic blooming artifact. Involutional changes with moderate to extensive T2/FLAIR hyperintensity throughout the white matter. Chronic lacunar infarcts of the basal ganglia and left cerebellum. Skull, orbits and soft tissues ar e unremarkable. Dural venous sinuses appear patent. Trace mastoid effusions with mild mucosal thicken ing of the paranasal sinuses. IMPRESSION: 1. No acute intracranial abnormality. No acute or subacute infarct. 2. Chronic lacunar infarcts of the basal ganglia and left cerebellum. 3. Involutional changes with moderate to extensive chronic microvascular ischemic disease. ACT 112: Negative or not required by law. The above report was generated using voice recognition software. It may contain grammatical, syntax o r spelling errors. Electronically signed by: Edmar Whipple M.D. 07/27/2022 1:38 PM
[2022-07-27 13:41] LABS: Appearance Urine Clear (Clear); Bilirubin Urine Negative (Negative); Blood Urine Negative (Negative); Color Urine Yellow; Glucose Urine UA Negative (Negative); Ketones Urine Negative (Negative); Leukocyte Esterase Urine Negative (Negative); Nitrite Urine Negative (Negative); Protein Urine Negative (Negative); Specific Gravity Urine 1.026 (1.000-1.030); Urobilinogen Urine Negative (Negative); pH Urine 7.5 (4.5-7.5)
[2022-07-27] MEDS ORDERED: GLUCAGON FOR INJ 1 MG VIAL SQ PRN (14:04)
[2022-07-27] MEDS ORDERED: CARBOHYDRATES FOR HYPOGLYCEMIA PO PRN (14:04)
[2022-07-27] MEDS ORDERED: LORazepam 1 MG/1 ML SYR IV PRN (14:04)
[2022-07-27] MEDS ORDERED: DEXTROSE 50% 50 ML SYRINGE IV PRN (14:04)
[2022-07-27] MEDS ORDERED: ACETAMINOPHEN 325 MG TAB PO PRN (14:04)
[2022-07-27] MEDS ORDERED: GLUCOSE 40% GEL 15 GM TUBE PO PRN (14:04)
[2022-07-27] MEDS ORDERED: GLUCOSE 10 TAB/TUBE PO PRN (14:04)
[2022-07-27] MEDS: POTASSIUM CHLORIDE / WTR 10 MEQ/100 ML PLCT IV SCH ×3 (14:34→17:10)
[2022-07-27] MEDS ORDERED: MELATONIN 3 MG TAB PO PRN (14:50)
[2022-07-27] MEDS: INSULIN ASPART PER UNIT SC SCH ×2 (16:57→21:34)
[2022-07-27] MEDS ORDERED: INSULIN ASPART PER UNIT SC SCH (18:00)
[2022-07-27] MEDS ORDERED: METOPROLOL SUCC 25MG EXT REL TAB PO SCH (21:00)
[2022-07-27] MEDS ORDERED: rOPINIRole HCL 1 MG TABLET PO SCH (21:00)
[2022-07-27] MEDS: APIXABAN 5 MG TABLET PO SCH (21:27)
[2022-07-27] MEDS: FERROUS SULFATE 325 MG TAB PO SCH (21:27)
[2022-07-27] MEDS: PANTOprazole 40 MG TAB PO SCH (21:28)
[2022-07-28] MEDS: PANTOprazole 40 MG TAB PO SCH (08:22)
[2022-07-28] MEDS: FERROUS SULFATE 325 MG TAB PO SCH (08:23)
[2022-07-28] MEDS: APIXABAN 5 MG TABLET PO SCH (08:23)
[2022-07-28] MEDS: INSULIN ASPART PER UNIT SC SCH ×2 (08:25→12:09)
[2022-07-28] MEDS ORDERED: CLOPIDOGREL BISULFATE 75 MG TAB PO SCH (09:00)
[2022-07-28] MEDS ORDERED: TAMSULOSIN HCL 0.4 MG CAP PO SCH (09:00)
[2022-07-28] MEDS ORDERED: EZETIMIBE 10 MG TABLET PO SCH (09:00)
[2022-07-28] MEDS ORDERED: FENOFIBRATE NANOCRYSTALLIZED 48 MG TABLET PO SCH (09:00)
[2022-07-28] MEDS ORDERED: VITAMIN B COMPLEX TAB PO SCH (09:00)
[2022-07-28] MEDS ORDERED: STROKE PATIENT DISCHARGE STA (13:52)
--- NOTE | 2022-07-28 13:53 | Discharge Summary ---
Date of Service July 28, 2022 Admission HPI Per Admitting Provider Shailesh is a 76 year old male with a PMH significant for previous stroke (12/2019) with left-sided residual weakness on Plavix, afib on Eliquis, HTN, hyperlipidemia, DM II, CAD S/P CABG x 3 (2019), CKD, restless leg syndrome, depression, GERD, and sensorineural hearing loss who presented to the [facility] ED on 07/27/22 with a chief complaint of new stoke-like symptoms. In the ED the patient was found to be afebrile, hemodynamically stable, and stable on RA. Labs were remarkable for a potassium of 3.3, Cr of 1.65 (baseline appears to be close to 1.6), glucose of 175, and covid negative. CT of the head/jj and CTA of the brain and neck showed "1. No acute intracranial hemorrhage, midline shift or acute territorial infarct. 2. There is a subcentimeter age-indeterminate lacunar infarct of the right caudate nucleus, new from 07/04/2021. 3. 60% luminal narrowing involving the distal cervical segment right ICA has progressed from the 01/27/2021 exam. 4. Multifocal stenoses of the intracranial arteries otherwise appears generally unchanged from the prior exam. Prior to admission the patient was given 1L lactated ringer's. We were asked to admit the patient for continue stroke workup/evaluation. At the time of the exam the patient was resting comfortably in bed in no acute distress, his family had left prior to my arrival. He states that he was in his normal state of health as of 10 pm yesterday. When he woke up this morning around approximately 0630 he thought his legs felt "funny". He yelled for his sister who thought that his speech was off from baseline and that he was difficult to understand. Because of his previous stroke he came to the ED to be evaluated. He denies recent fevers or chills, changes in vision, hearing, taste, and smell, chest pain, SOB, abdominal pain, nausea, vomiting, diarrhea, dysuria, hematuria, and recent falls. When asked, his legs feel back to baseline and he feels as though his speech is also back to baseline. He was able to take his am medications prior to coming to the ED. He uses a walker at baseline to ambulate and also uses a brace on his left leg. He confirms that he has severe left-sided weakness at baseline. Per the ED staff, his daughter told them that the patient was taking his Eliquis and plavix infrequently. Per chart review, he last saw Neurology in 2020, at that time that discontinued his Aspirin as he was doing well on the Plavix and Eliquis. I spoke to the patient regarding code status, he wishes to be a Full Code. If he could not make decisions for himself he would like his daughters to be the decision makers. Principal Diagnosis Transient ischemic attack Discharge Exam Constitutional WD/WN, vitals as above Eyes PERRL, conjunctivae normal, anicteric sclerae ENMT external ear and nose normal, oropharynx normal Neck trachea midline, no thyromegaly Respiratory normal respiratory effort, lungs clear to auscultation Cardiovascular RRR, no murmur, no edema Gastrointestinal (Abdomen) normal bowel sounds, soft, nontender, no hepatosplenomegaly Musculoskeletal no cyanosis or clubbing, extremities motor strength 5/5 Skin no rashes, warm and dry Neurologic moves all extremities and awake; no focal motor deficits and not confused Speech / Cognition: normal speech Motor/Sensory: no tremor and no pronator drift Cranial Nerves: PERRL, EOM intact bilaterally, normal facial strength, tongue midline, able to rotate head bilaterally, able to elevate shoulders bilaterally, no nystagmus and symmetric palate elevation Psychiatric A+Ox3, euthymic affect Discharge Data Allergies Allergy/AdvReac Type Severity Reaction Status Date / Time Corticosteroids Allergy Unknown Unknown Verified 07/30/22 15:00 (Glucocorticoids) niacin Allergy Unknown ARTHRALGIAS Verified 07/30/22 15:00 FROM ADVICOR telithromycin Allergy Unknown ARTHRALGIAS Verified 07/30/22 15:00 FROM ADVICOR atorvastatin AdvReac Intermediate Muscle Pain Verified 07/30/22 15:00 lovastatin AdvReac Intermediate ARTHRALGIAS Verified 07/30/22 15:00 FROM ADVICOR [id number]-[id number]-VnC Reductase AdvReac Intermediate Muscle Pain Verified 07/30/22 15:00 Inhibitor [Sydlkpu-Wra-Qee Reductase Inhibitor] Consultations 07/27/22 11:42 ED Decision to Admit Stat Ordered Studies 07/27/22 08:58 CT angio head w con Stat CT angio neck with con Stat CT head/brain wo con Stat IMPRESSION: 1. No acute intracranial hemorrhage, midline shift or acute territorial infarct. 2. There is a subcentimeter age-indeterminate lacunar infarct of the right caudate nucleus, new from 07/04/2021. 3. 60% luminal narrowing involving the distal cervical segment right ICA has progressed from the 01/27/2021 exam. 4. Multifocal stenoses of the intracranial arteries otherwise appears generally unchanged from the prior exam. 07/27/22 12:09 MR brain wo con Routine IMPRESSION: 1. No acute intracranial abnormality. No acute or subacute infarct. 2. Chronic lacunar infarcts of the basal ganglia and left cerebellum. 3. Involutional changes with moderate to extensive chronic microvascular ischemic disease. Hospital Course (1) Stroke-like symptoms: Shailesh Antonio is a 76 year old male admitted to [facility] from July 27 to July 28, 2022 due to strokelike symptoms. He was diagnosed with a transient ischemic attack. This was discussed with neurology and recommended continuing on your usual anticoagulation and antiplatelets at this time. He refused HbA1c and lipid testing due to recently having these with his primary care provider at [facility]. Recommend following up with his primary care physician within the next week to discuss further management of his diabetes and hyperlipidemia. Consider SGLT2 inhibitor if his HbA1c > 6.5 for cardiovascular protection. If not previously considered and hyperlipidemia remains given his statin intolerance consider PCSK9 inhibitors. His blood pressure has remained elevated during his admission. BP 168/84 on discharge. Recommend starting lisinopril 10 mg daily for this to help prevent further cardiovascular disease. This medication also has a renal protective factor with your concurrent diabetes. Please follow-up with your primary care physician for ongoing management of your high blood pressure. (2) Hypokalemia: (3) Atrial fibrillation: (4) HTN (hypertension): (5) DM (diabetes mellitus): (6) GERD (gastroesophageal reflux disease): (7) Restless leg syndrome: (8) Hypertriglyceridemia: (9) CKD (chronic kidney disease) stage 3, GFR 30-59 ml/min: (10) S/P CABG x 3: (11) Left hemiplegia: Total Time Total Time Spent Total Time Spent (In Minutes): 50 Discharge Plan Discharge Items Patient Disposition: Home - Self-Care Reason For Visit: STROKE LIKE SYMPTOMS Discharge Diagnosis: Transient ischemic attack (TIA) Activity: Resume your previous activity Non-emergency contact: Neurologist Call non-emergency contact if: you have any medication questions and your symptoms worsen Follow-up/Referrals: Jj Napoles MD [Physician] - 07/30/22 3:00 pm (Follow up TIA. This appointment will be with Soha Faria.) Alejandrina Brooks DO [Primary Care Provider] - 08/03/22 1:50 pm Diet: Carb Consistent or DM2 and Heart Healthy Addtl Attending Provider Instructions: You were admitted to [facility] from July 27 to July 28, 2022 due to strokelike symptoms. You were diagnosed with a transient ischemic attack (also known as a mini stroke). This was discussed with neurology and recommended continuing on your usual anticoagulation and antiplatelets at this time. You refused HbA1c and lipid testing due to recently having these with [facility]. Recommend following up with your primary care physician within the next week to discuss further management of your diabetes and hyperlipidemia. Consider SGLT2 inhibitor if your diabetes if HbA1c > 6.5 as these have a cardiovascular protective factor in addition to helping your HbA1c. If not previously considered and hyperlipidemia remains given your statin intolerance recommend discussing PCSK9 inhibitors with your primary care physician. Your blood pressure has remained elevated during her admission. Recommend starting lisinopril 10 mg daily for this to help prevent further cardiovascular disease. This medication also has a renal protective factor with your concurrent diabetes. Please follow-up with your primary care physician for ongoing management of your high blood pressure. Kind regards, Dr. Chidi Ellington Pending Studies at Discharge: No Stand-Alone Forms: My [facility], Smoking Cessation Medications and DC Order Prescriptions: New lisinopril 10 mg tablet 10 mg PO DAILY Qty: 30 0RF Continued acetaminophen [Tylenol] 325 mg tablet 650 mg PO Q4H PRN (Reason: Pain, Mild) tamsulosin 0.4 mg capsule 0.4 mg PO DAILY Qty: 90 3RF ezetimibe 10 mg tablet 10 mg PO QAM fenofibrate nanocrystallized 48 mg tablet 48 mg PO QAM docusate sodium 100 mg Capsule 100 mg PO TID cholecalciferol (vitamin D3) [Vitamin D3] 50 mcg (2,000 unit) Capsule 2,000 unit PO QAM clopidogrel 75 mg Tablet 75 mg PO QAM Qty: 30 0RF vitamin B complex [Vitamins B Complex] Capsule 1 tab PO QAM Qty: 30 0RF ropinirole 0.5 mg tablet 1 mg PO HS omeprazole 20 mg capsule,delayed release(DR/EC) 20 mg PO BID multivitamin with minerals Tablet 1 tab PO DAILY metoprolol succinate 25 mg tablet extended release 24 hr 25 mg PO HS ferrous sulfate 325 mg (65 mg iron) Tablet 325 mg PO AMPM Eliquis 5 mg tablet 5 mg PO BID Discharge Orders: Discharge Order (Routine); Ordered 07/28/22 Ordered By: Chidi Ellington Admission Data Admit Date/Time: 07/27/22 11:47 Attending Provider: Chidi Ellington Admit Provider: Raul Mark Primary Care Provider: Alejandrina Brooks Other Interventions: Discharge Summary Assessment (RN) Last Done: 07/28/22 14:22 Coding Level of Care Code D/C DAY MANAGEMENT >30 MINS Diagnoses Stroke-like symptoms R29.90 Hypokalemia E87.6 Atrial fibrillation I48.0 Atrial fibrillation type: paroxysmal HTN (hypertension) I10 Hypertension type: essential hypertension DM (diabetes mellitus) E11.9 Diabetes mellitus complication status: without complication Diabetes mellitus assisted insulin use: without intermediate teacher use Diabetes mellitus type: type 2 GERD (gastroesophageal reflux disease) K21.9 Esophagitis presence: esophagitis presence not specified Restless leg syndrome G25.81 Hypertriglyceridemia E78.1 CKD (chronic kidney disease) stage 3, GFR 30-59 ml/min N18.30 S/P CABG x 3 Z95.1 Left hemiplegia G81.94
== END 2022-07-28 15:19 | disposition home or self-care (01) | DRG 69 ==
LOC: ED 08:33 → EDINP 11:47 → SUATTDRO 11:47 → INTOOBSV 11:47 → 2N 13:53

== ENCOUNTER 2022-12-09 17:18 | Observation (INO) ==
[2022-12-09] MEDS ORDERED: SODIUM CHLORIDE 0.9% 1000ML 1,000 ML IV STA (17:45)
--- NOTE | 2022-12-09 17:50 | Emergency Department Note ---
Impression & Plan Weakness, Hypokalemia, LUDWIN (acute kidney injury) ED Provider Note NAME: CAIN NAZARIO AGE: 76 SEX: M : 1945 ARRIVES VIA: Ambulance INFORMANT: Patient, ED PROVIDER(S): Horacio Erwin DO CHIEF COMPLAINT: Weakness HPI: The patient is a 76-year-old male who presented to the emergency department for an evaluation of generalized weakness. The patient arrived with his daughter but she was not present for the majority of the history. The patient himself states that he started feeling ill over the last few days. There was a reported fever by prehospital personnel. The patient himself denies having any vomiting. He has noticed some dark foul-smelling urine. He has had difficulty ambulating. For this reason he was sent to the emergency department. His family is concerned he may have a urinary tract infection. ROS: See above HPI for pertinent positives & negatives. A total of 10 systems reviewed and were otherwise negative. PAST MEDICAL HISTORY: See Below PAST SURGICAL HISTORY: See Below FAMILY HISTORY: See Below SOCIAL HISTORY: See Below HOME MEDICATIONS: See Below ALLERGIES: See Below VITALS: See Below PHYSICAL EXAMINATION: GENERAL: The patient is awake and alert. The patient is comfortable appearing. EYES: The conjunctivae are clear. The pupils are round and reactive. EARS, NOSE, MOUTH AND THROAT: The nose is without any evidence of any deformity. Mucous membranes are dry. NECK: The neck is nontender and supple. RESPIRATORY: Normal respiratory effort is noted there is no evidence of wheezing rhonchi or rales CARDIOVASCULAR: Regular rate and rhythm noted there no murmurs rubs or gallops normal S1 normal S2. GASTROINTESTINAL: The abdomen is distended. There is diffuse tenderness to palpation but no guarding rigidity. MUSCULOSKELETAL/EXTREMITIES: There is no evidence of gross deformity full range of motion is noted in the hips and shoulders. SKIN: Skin is warm and dry. There is no pedal edema. NEUROLOGIC: Patient is awake alert and oriented x3. MEDICAL DECISION MAKING: The patient is a 76-year-old male who presented to the emergency department for an evaluation of generalized weakness. History is obtained from the patient's daughter. I discussed the patient's laboratory and radiographic studies with him. He was treated with IV fluids as well as potassium replacement in the emergency department. I do feel the patient's weakness is not being helped by the hypokalemia. I discussed his condition with his daughter. They are not comfortable the patient going home as he lives by himself and may require inpatient management as well as placement if he does not improve. For this reason I discussed his condition with the on-call [facility] hospitalist. They have agreed to evaluate the patient in the emergency department for further management and disposition. Triage Nursing notes reviewed. Prior medical records reviewed Vital Signs: reviewed and remarkable for elevated blood pressure. Differential diagnosis: Infection, dehydration, metabolic abnormality, hypo/hyperglycemia, electrolyte disturbance, anemia, hypoxia, cardiac sources, intracerebral event, toxicologic, neurologic, as well as other pathologies. ER treatment provided: See below Diagnostics interpreted by me: ECG: EKG was obtained in the emergency department. My interpretation is normal sinus rhythm at 96 bpm. There is no ectopy. There is no acute ST segment abnormalities noted. This was compared to a tracing from July 27, 2022. No changes were noted. Cardiac Monitoring: An order was placed for continuous cardiac monitoring. The monitor shows a rate of 83 bpm with sinus rhythm. Laboratory studies: As stated above and show below. Imaging studies: See below. Radiographic imaging was reviewed by myself Consultation(s): I discussed this case with Dr. Lynch who is on-call for the [facility] hospitalist group. Past Med/Surg History Medical History Ambulatory dysfunction CAD (coronary artery disease) CHI (closed head injury) CKD (chronic kidney disease) stage 3, GFR 30-59 ml/min CVA (cerebral vascular accident) january 2021 Depression Diaphragmatic paralysis Diarrhea Diarrhea Elevated lipase Fall Fall Generalized weakness GERD (gastroesophageal reflux disease) HTN (hypertension) Hypercholesteremia Hypertriglyceridemia Hypotension Left rib fracture Physical deconditioning Postoperative atrial fibrillation Presence of arterial stent L leg, unable to relate exact location. Pressure ulcer of right buttock Restless leg syndrome Stroke TIA (transient ischemic attack) Type II diabetes mellitus Surgical History H/O knee surgery stent behind left knee 2017 H/O vasectomy History of angioplasty of peripheral vessel LLE angiogram with SUP[employer]Y TE[employer]ER popliteal 05/23/2018 Hx of colonoscopy 2017 S/P CABG x 3 Family History Grandfather Colorectal cancer Mother Diabetes Hypertension Brother Stroke Social History Smoking Status: Former smoker Tobacco Type: Cigarettes Second Hand Exposure: No; Hx Alcohol Use: Yes Alcohol type: beer Hx Substance Use: No Preferred Language: Kazakh Communication Ability: Effective Front Facer Required: No Beliefs That Will Affect Care: None marital status: Single Current Living Situation: Alone Current Living Situation Comment: JUST DISCHARGED FROM [facility] TO HOME ALONE current occupational status: retired Feels Safe at Home: Yes Assistive Devices: Walker Allergies Allergies Allergy/AdvReac Type Severity Reaction Status Date / Time Corticosteroids Allergy Unknown Unknown Verified 07/30/22 15:00 (Glucocorticoids) niacin Allergy Unknown ARTHRALGIAS Verified 07/30/22 15:00 FROM ADVICOR telithromycin Allergy Unknown ARTHRALGIAS Verified 07/30/22 15:00 FROM ADVICOR atorvastatin AdvReac Intermediate Muscle Pain Verified 07/30/22 15:00 lovastatin AdvReac Intermediate ARTHRALGIAS Verified 07/30/22 15:00 FROM ADVICOR [id number] Reductase AdvReac Intermediate Muscle Pain Verified 07/30/22 15:00 Inhibitor [Wjhlysn-Fuv-Dzo Reductase Inhibitor] Home Meds Home Medications Medication Instructions Recorded Confirmed ezetimibe 10 mg tablet 10 mg PO QAM 11/11/19 07/30/22 fenofibrate nanocrystallized 48 mg 48 mg PO QAM 11/27/20 07/30/22 tablet apixaban 5 mg tablet (Eliquis) 5 mg PO BID 01/17/21 07/30/22 ferrous sulfate 325 mg (65 mg 325 mg PO AMPM 01/17/21 07/30/22 iron) tablet metoprolol succinate 25 mg 25 mg PO HS 01/17/21 07/30/22 tablet,extended release 24 hr cholecalciferol (vitamin D3) 50 2,000 unit PO QAM 01/27/21 07/30/22 mcg (2,000 unit) capsule (Vitamin D3) docusate sodium 100 mg capsule 100 mg PO TID 01/27/21 07/30/22 multivitamin with minerals 1 tab PO DAILY 03/16/21 07/30/22 omeprazole 20 mg capsule,delayed 20 mg PO BID 03/16/21 07/30/22 release acetaminophen 325 mg tablet 650 mg PO Q4H PRN Pain, Mild 07/22/21 07/30/22 (Tylenol) ropinirole 0.5 mg tablet 1 mg PO HS 07/22/21 07/30/22 Previous Rx's Medication Instructions Recorded clopidogrel 75 mg tablet 75 mg PO QAM #30 tabs 01/29/21 vitamin B complex (Vitamins B 1 tab PO QAM #30 caps 01/30/21 Complex capsule) tamsulosin 0.4 mg capsule 0.4 mg PO DAILY #90 caps 07/01/22 lisinopril 10 mg tablet 10 mg PO DAILY #30 tabs 07/28/22 Results & Data (ED) Vital Signs Vital Signs - 24 hr 12/09/22 17:36 12/09/22 17:40 12/09/22 17:48 Temperature 36.9 C Temperature Source Oral Pulse Rate 99 H 98 H 99 H Pulse Rate from SpO2 Sensor Pulse Rhythm Regular Respiratory Rate 20 15 Respiratory Effort / Characteristics Non-Labored Spontaneous Respiratory Depth Normal Blood Pressure 158/102 H Blood Pressure Mean 120 Pulse Oximetry 95 95 Oxygen Delivery Method Room Air Room Air Sepsis Recent Fever Within 48 Hours Yes Sepsis New/Unexplained Change in Mental Status No Sepsis Action Taken by Nursing No Action Required 12/09/22 17:30 12/09/22 17:40 12/09/22 17:50 Temperature Temperature Source Pulse Rate 113 H 98 H 93 H Pulse Rate from SpO2 Sensor 111 H 97 H 93 H Pulse Rhythm Respiratory Rate 15 18 15 Respiratory Effort / Characteristics Respiratory Depth Blood Pressure Blood Pressure Mean Pulse Oximetry 98 95 96 Oxygen Delivery Method Sepsis Recent Fever Within 48 Hours Sepsis New/Unexplained Change in Mental Status Sepsis Action Taken by Nursing 12/09/22 18:05 12/09/22 18:06 12/09/22 18:06 Temperature Temperature Source Pulse Rate 98 H 97 H Pulse Rate from SpO2 Sensor 97 H Pulse Rhythm Respiratory Rate 16 14 Respiratory Effort / Characteristics Respiratory Depth Blood Pressure 156/94 H Blood Pressure Mean 114 Pulse Oximetry 95 Oxygen Delivery Method Sepsis Recent Fever Within 48 Hours Sepsis New/Unexplained Change in Mental Status Sepsis Action Taken by Nursing 12/09/22 18:10 12/09/22 18:20 12/09/22 18:30 Temperature Temperature Source Pulse Rate 98 H 88 Pulse Rate from SpO2 Sensor 96 H 88 Pulse Rhythm Respiratory Rate 20 15 Respiratory Effort / Characteristics Respiratory Depth Blood Pressure 155/78 H Blood Pressure Mean 103 Pulse Oximetry 96 95 Oxygen Delivery Method Sepsis Recent Fever Within 48 Hours Sepsis New/Unexplained Change in Mental Status Sepsis Action Taken by Nursing 12/09/22 18:30 12/09/22 18:40 12/09/22 18:50 Temperature Temperature Source Pulse Rate 86 85 87 Pulse Rate from SpO2 Sensor 86 84 87 Pulse Rhythm Respiratory Rate 15 20 15 Respiratory Effort / Characteristics Respiratory Depth Blood Pressure Blood Pressure Mean Pulse Oximetry 97 96 97 Oxygen Delivery Method Sepsis Recent Fever Within 48 Hours Sepsis New/Unexplained Change in Mental Status Sepsis Action Taken by Nursing 12/09/22 19:00 12/09/22 19:00 12/09/22 19:10 Temperature Temperature Source Pulse Rate 84 81 Pulse Rate from SpO2 Sensor 83 81 Pulse Rhythm Respiratory Rate 15 16 Respiratory Effort / Characteristics Respiratory Depth Blood Pressure 182/87 H Blood Pressure Mean 118 Pulse Oximetry 95 97 Oxygen Delivery Method Sepsis Recent Fever Within 48 Hours Sepsis New/Unexplained Change in Mental Status Sepsis Action Taken by Nursing 12/09/22 19:20 12/09/22 19:30 12/09/22 19:30 Temperature Temperature Source Pulse Rate 85 83 Pulse Rate from SpO2 Sensor 84 86 Pulse Rhythm Respiratory Rate 14 14 Respiratory Effort / Characteristics Respiratory Depth Blood Pressure 160/90 H Blood Pressure Mean 113 Pulse Oximetry 97 97 Oxygen Delivery Method Sepsis Recent Fever Within 48 Hours Sepsis New/Unexplained Change in Mental Status Sepsis Action Taken by Detention Medications Current Medication List: was personally reviewed by me Laboratory Data Attestation: I reviewed the patient's lab results. 12/09/22 17:41 12/09/22 17:41 Lab Results 12/09/22 12/09/22 12/09/22 Range/Units 17:41 17:41 17:41 WBC 7.24 (4.8-10.8) K/ul RBC 5.71 (4.70-6.10) M/uL Hgb 17.1 (14.0-18.0) g/dl Hct 50.0 (42.0-52.0) % MCV 87.6 (80.0-100.0) fL MCH 29.9 (25.0-34.0) pg MCHC 34.2 (32.0-36.0) g/dL RDW Std Deviation 39.6 (36.4-46.3) fL RDW Coeff of Brice 12.5 (11.5-14.5) % Plt Count 153 (130-400) K/uL MPV 11.5 (9.4-12.4) fL Immature Gran % (Auto) 0.6 % Neut % (Auto) 71.4 % Lymph % (Auto) 16.7 % [place] % (Auto) 8.8 % Eos % (Auto) 1.7 % Baso % (Auto) 0.8 % Neut # (Auto) 5.17 (1.40-6.50) K/uL Lymph # (Auto) 1.21 (1.2-3.4) K/uL [place] # (Auto) 0.64 H (0.11-0.59) K/uL Eos # (Auto) 0.12 (0-0.50) K/uL Baso # (Auto) 0.06 (0-0.2) K/uL Immature Gran # (Auto) 0.04 (0.01-0.20) K/uL PT 11.1 (9.0-12.0) Seconds INR 1.0 (0.9-1.1) APTT 34.4 H (21.0-31.0) Seconds PTT Ratio 1.3 Sodium 139 (136-145) mmol/L Potassium 2.9 L (3.5-5.1) mmol/L Chloride 103 (98-107) mmol/L Carbon Dioxide 26 (21-32) mmol/L Anion Gap 10 (3-11) BUN 20 (6-23) mg/dl Creatinine 1.98 H (0.6-1.4) mg/dl Est Cr Clr Drug Dosing Not Reportable Est GFR ( Amer) 36.9 ml/min Est GFR (Non-Af Amer) 31.9 ml/min BUN/Creatinine Ratio 10.1 (10-20) Glucose 100 H (70-99(Fasting)) mg/dl Calcium 9.7 (8.5-10.1) mg/dl Magnesium Total Bilirubin 0.6 (0.2-1.0) mg/dl AST 29 (13-39) U/L ALT 24 (7-52) U/L Alkaline Phosphatase 91 (34-104) U/L Troponin I High Sens 9.8 (0-20) pg/ml Total Protein 8.0 (6.0-8.3) gm/dl Albumin 4.4 (3.4-5.0) gm/dl Globulin 3.6 (2.5-4.0) gm/dl Albumin/Globulin Ratio 1.2 (0.9-2) Lipase 45 (11-82) U/L Urine Color Urine Appearance (Clear) Urine pH (4.5-7.5) Ur Specific [place] (1.000-1.030) Urine Protein (Negative) Urine Glucose (UA) (Negative) Urine Ketones (Negative) Urine Blood (Negative) Urine Nitrite (Negative) Urine Bilirubin (Negative) Urine Urobilinogen (Negative) Ur Leukocyte Esterase (Negative) Urine WBC (Auto) (0-5) /hpf Urine RBC (Auto) (0-4) /hpf U Hyaline Cast (Auto) (0-5) /lpf U Epithel Cells (Auto) (0-5) /lpf Urine Bacteria (Auto) (Negative) 12/09/22 12/09/22 Range/Units 19:10 20:31 WBC (4.8-10.8) K/ul RBC (4.70-6.10) M/uL Hgb (14.0-18.0) g/dl Hct (42.0-52.0) % MCV (80.0-100.0) fL MCH (25.0-34.0) pg MCHC (32.0-36.0) g/dL RDW Std Deviation (36.4-46.3) fL RDW Coeff of Brice (11.5-14.5) % Plt Count (130-400) K/uL MPV (9.4-12.4) fL Immature Gran % (Auto) % Neut % (Auto) % Lymph % (Auto) % [place] % (Auto) % Eos % (Auto) % Baso % (Auto) % Neut # (Auto) (1.40-6.50) K/uL Lymph # (Auto) (1.2-3.4) K/uL [place] # (Auto) (0.11-0.59) K/uL Eos # (Auto) (0-0.50) K/uL Baso # (Auto) (0-0.2) K/uL Immature Gran # (Auto) (0.01-0.20) K/uL PT (9.0-12.0) Seconds INR (0.9-1.1) APTT (21.0-31.0) Seconds PTT Ratio Sodium (136-145) mmol/L Potassium (3.5-5.1) mmol/L Chloride (98-107) mmol/L Carbon Dioxide (21-32) mmol/L Anion Gap (3-11) BUN (6-23) mg/dl Creatinine (0.6-1.4) mg/dl Est Cr Clr Drug Dosing Est GFR ( Amer) ml/min Est GFR (Non-Af Amer) ml/min BUN/Creatinine Ratio (10-20) Glucose (70-99(Fasting)) mg/dl Calcium (8.5-10.1) mg/dl Magnesium Cancelled Total Bilirubin (0.2-1.0) mg/dl AST (13-39) U/L ALT (7-52) U/L Alkaline Phosphatase (34-104) U/L Troponin I High Sens (0-20) pg/ml Total Protein (6.0-8.3) gm/dl Albumin (3.4-5.0) gm/dl Globulin (2.5-4.0) gm/dl Albumin/Globulin Ratio (0.9-2) Lipase (11-82) U/L Urine Color Yellow Urine Appearance Clear (Clear) Urine pH 5.5 (4.5-7.5) Ur Specific [place] 1.021 (1.000-1.030) Urine Protein 2+ H (Negative) Urine Glucose (UA) Negative (Negative) Urine Ketones Negative (Negative) Urine Blood Negative (Negative) Urine Nitrite Negative (Negative) Urine Bilirubin Negative (Negative) Urine Urobilinogen Negative (Negative) Ur Leukocyte Esterase Negative (Negative) Urine WBC (Auto) 1-5 (0-5) /hpf Urine RBC (Auto) 0-4 (0-4) /hpf U Hyaline Cast (Auto) 1-5 (0-5) /lpf U Epithel Cells (Auto) 5-10 H (0-5) /lpf Urine Bacteria (Auto) Negative (Negative) Administered Medications Discontinued Medications Sodium Chloride (Nss 1000ml) 1,000 mls @ 999 mls/hr IV .Q1H1M STA Stop: 12/09/22 18:45 Last Infusion: 12/09/22 19:19 Dose: 0 mls/hr Documented By: Admin: 12/09/22 18:14 Dose: 999 mls/hr Documented By: JULIA Potassium Chloride (K Christiano / Wtr) 10 meq in 100 mls @ 100 mls/hr IV ONE ONE; Protocol Stop: 12/09/22 21:29 Last Infusion: 12/09/22 21:47 Dose: 0 mls/hr Documented By: Admin: 12/09/22 20:37 Dose: 100 mls/hr Documented By: DANNY Sodium Chloride (Nss 1000ml) 500 mls @ 999 mls/hr IV .Q31M ONE Stop: 12/09/22 21:00 Last Infusion: 12/09/22 21:31 Dose: 0 mls/hr Documented By: Admin: 12/09/22 20:38 Dose: 999 mls/hr Documented By: DANNY Potassium Chloride (Potassium Chloride Crtab 20 Meq Tabcr) 20 meq PO NOW STA Stop: 12/09/22 20:31 Last Admin: 12/09/22 20:37 Dose: 20 meq Documented By: DANNY Imaging Data Attestation: I personally reviewed and interpreted this imaging study as follows: My Impression: chest x-ray was obtained in the emergency department. My interpretation is no acute disease, no definite filtrate, no free air CT of the head was obtained in the emergency department. My interpretation is no intracranial hemorrhage, no mass effect, final report pending. Radiologist's Impression: Abdomen/Pelvis CT 12/09/22 17:45 CT SCAN OF THE ABDOMEN AND PELVIS WITHOUT IV CONTRAST CLINICAL HISTORY: Hematuria. COMPARISON STUDY: Abdominal CT dated 07/05/2021. TECHNIQUE: CT scan of the abdomen and pelvis is performed from the lung bases to the proximal femora. Images are reviewed in the axial, sagittal, and coronal planes. IV contrast was not administered for this examination. A dose lowering technique was utilized adhering to the principles of ALARA. The examination is degraded by motion artifact, as well as by streak artifact from the left arm which could not be elevated above the abdomen. CT DOSE: 1127.20 mGy.cm FINDINGS: Lung bases: The patient is status post midline sternotomy. The heart is mildly enlarged and without pericardial effusion. The coronary arteries and mitral annulus are densely calcified. The lung bases are clear noting bibasilar scarring/atelectasis. Liver: The unenhanced liver is top normal in size and demonstrates diffusely diminished attenuation indicating steatosis. Fatty sparing is seen adjacent to the gallbladder fossa. There is no intrahepatic biliary ductal dilatation. Gallbladder: Unremarkable. Spleen: The spleen is enlarged, measuring 14.9 cm in length. Pancreas: Unremarkable. 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 The right adrenal gland is normal in appearance. Kidneys: There is asymmetric cortical atrophy of the left kidney as compared to the right. This is similar to previous. No hydronephrosis is seen. There are at least 3 punctate nonobstructing right renal calculi. No left renal calculi are seen and there is no ureteral stone. There is no evidence of contour deforming renal mass lesion. Abdominal vasculature: The abdominal aorta is normal in course and caliber noting mild to moderate atherosclerotic calcification. Bowel: There is rectosigmoid fecal retention mild to moderate constipation. No bowel obstruction is seen. The appendix is well-visualized and normal. Peritoneum: There is no intraperitoneal free air or abdominal ascites. Lymphadenopathy: None. Pelvic viscera: The prostate gland is enlarged and heterogeneous noting median lobe hypertrophy. The bladder is mildly distended, and the wall is thickened/trabeculated indicating chronic outlet obstruction. Skeletal structures: The skeletal structures are osteopenic. There is mild lumbosacral spondylosis. No lytic or blastic lesions are seen. There are chronic/healed left-sided rib fractures. IMPRESSION: 1. No acute infectious or inflammatory findings are identified in the abdomen or pelvis. 2. Right-sided nephrolithiasis. 3. There is asymmetrical cortical atrophy of the left kidney as compared to the right. This is similar to previous. 4. Hepatic steatosis. 5. Splenomegaly. 6. 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 7. Additional findings as above ACT 112: Negative or not required by law. Electronically signed by: Bryant Graves M.D. 12/09/2022 6:52 PM Chest X-Ray 12/09/22 17:45 SINGLE VIEW CHEST CLINICAL HISTORY: Fever. FINDINGS: An AP, portable, upright chest radiograph is compared to study dated 07/03/2021. Correlation is made with chest CT dated 03/16/[address] performed earlier the same day 12/09/2022. The examination is degraded by portable technique and patient rotation. The patient is status post midline sternotomy. The heart is mildly enlarged. The pulmonary vasculature is noncongested. Chronic interstitial thickening as on the previous. A calcified granuloma is seen in the left upper lobe. Scarring/atelectasis is noted at the lung bases. No airspace consolidation or large pleural effusion is identified. No pneumothorax is seen. The skeletal structures are osteopenic. The bony thorax is grossly intact. IMPRESSION: Cardiomegaly with no acute cardiopulmonary abnormality identified. ACT 112: Negative or not required by law. Electronically signed by: Bryant Graves M.D. 12/09/2022 6:[address] 12/09/22 17:45 CT SCAN OF THE BRAIN WITHOUT IV CONTRAST CLINICAL HISTORY: Generalized weakness. Fatigue. COMPARISON STUDY: CT and MRI of the brain dated 07/27/2022. TECHNIQUE: Unenhanced axial CT scan of the brain is performed from the vertex to the skull base. A dose lowering technique was utilized adhering to the principles of ALARA. FINDINGS: Brain parenchyma: There is age-related involutional change noting moderate to advanced confluent subcortical and periventricular microangiopathic disease. There is no hemorrhage, mass effect, or evidence of acute territorial ischemia by CT criteria. Chin-white matter differentiation is preserved. Chronic lacunar infarcts are noted in the right thalamus and the right periventricular white matter. No extra-axial fluid collection is seen. Ventricles, sulci, cisterns: Prominent secondary to involutional change. Intracranial vasculature: There is atherosclerotic calcification of the cavernous carotid and vertebral arteries. Calvarium: Unremarkable. Sinuses and mastoids: There is evidence of previous paranasal sinus surgery. Mild to moderate mucosal thickening is noted within the frontal, maxillary, ethmoid, and sphenoid sinuses. The mastoid air cells are well pneumatized. Orbits: The bony orbits are grossly intact. IMPRESSION: There is no hemorrhage, mass effect, or evidence of acute territorial ischemia by CT criteria. ACT 112: Negative or not required by law. Electronically signed by: Bryant Graves M.D. 12/09/2022 6:25 PM Discharge Plan Visit Data Chief Complaint: Urinary Symptoms ED Provider: Horacio Erwin Discharge Problem: Weakness, Hypokalemia, LUDWIN (acute kidney injury) Patient Disposition: Being Evaluated by Hospitalist Forms Stand Alone Forms: My [facility] Prescriptions Prescriptions: No Action acetaminophen [Tylenol] 325 mg tablet 650 mg PO Q4H PRN (Reason: Pain, Mild) tamsulosin 0.4 mg capsule 0.4 mg PO DAILY Qty: 90 3RF ezetimibe 10 mg tablet 10 mg PO QAM fenofibrate nanocrystallized 48 mg tablet 48 mg PO QAM docusate sodium 100 mg Capsule 100 mg PO TID cholecalciferol (vitamin D3) [Vitamin D3] 50 mcg (2,000 unit) Capsule 2,000 unit PO QAM clopidogrel 75 mg Tablet 75 mg PO QAM Qty: 30 0RF vitamin B complex [Vitamins B Complex] Capsule 1 tab PO QAM Qty: 30 0RF ropinirole 0.5 mg tablet 1 mg PO HS omeprazole 20 mg capsule,delayed release(DR/EC) 20 mg PO BID multivitamin with minerals Tablet 1 tab PO DAILY metoprolol succinate 25 mg tablet extended release 24 hr 25 mg PO HS ferrous sulfate 325 mg (65 mg iron) Tablet 325 mg PO AMPM Eliquis 5 mg tablet 5 mg PO BID lisinopril 10 mg tablet 10 mg PO DAILY Qty: 30 0RF Referrals Referrals: Alejandrina Brooks DO [Primary Care Provider] -
[2022-12-09 18:25] LABS: Basophils # (auto) 0.06 K/uL (0-0.2); Basophils % (auto) 0.8 %; Eosinophils # (auto) 0.12 K/uL (0-0.50); Eosinophils % (auto) 1.7 %; Hemoglobin 17.1 g/dl (14.0-18.0); Immature Granulocytes # (auto) 0.04 K/uL (0.01-0.20); Immature Granulocytes % (auto) 0.6 %; Lymphocytes # (auto) 1.21 K/uL (1.2-3.4); Lymphocytes % (auto) 16.7 %; Mean Corpuscular Hemoglobin 29.9 pg (25.0-34.0); Mean Corpuscular Hgb Conc 34.2 g/dL (32.0-36.0); Mean Corpuscular Volume 87.6 fL (80.0-100.0); Mean Platelet Volume 11.5 fL (9.4-12.4); Monocytes # (auto) 0.64 K/uL (0.11-0.59); Monocytes % (auto) 8.8 %; Neutrophils # (auto) 5.17 K/uL (1.40-6.50); Neutrophils % (auto) 71.4 %; Platelet Count 153 K/uL (130-400); RDW Coefficient of Variation 12.5 % (11.5-14.5); RDW Standard Deviation 39.6 fL (36.4-46.3); Red Blood Count 5.71 M/uL (4.70-6.10); White Blood Count 7.24 K/ul (4.8-10.8)
--- NOTE | 2022-12-09 18:27 | CT Scan Report ---
CT SCAN OF THE BRAIN WITHOUT IV CONTRAST CLINICAL HISTORY: Generalized weakness. Fatigue. COMPARISON STUDY: CT and MRI of the brain dated 07/27/2022. TECHNIQUE: Unenhanced axial CT scan of the brain is performed from the vertex to the skull base. A do se lowering technique was utilized adhering to the principles of ALARA. FINDINGS: Brain parenchyma: There is age-related involutional change noting moderate to advanced confluent subc ortical and periventricular microangiopathic disease. There is no hemorrhage, mass effect, or evidenc e of acute territorial ischemia by CT criteria. Chin-white matter differentiation is preserved. Chron ic lacunar infarcts are noted in the right thalamus and the right periventricular white matter. No ex tra-axial fluid collection is seen. Ventricles, sulci, cisterns: Prominent secondary to involutional change. Intracranial vasculature: There is atherosclerotic calcification of the cavernous carotid and vertebr al arteries. Calvarium: Unremarkable. Sinuses and mastoids: There is evidence of previous paranasal sinus surgery. Mild to moderate mucosal thickening is noted within the frontal, maxillary, ethmoid, and sphenoid sinuses. The mastoid air ce lls are well pneumatized. Orbits: The bony orbits are grossly intact. IMPRESSION: There is no hemorrhage, mass effect, or evidence of acute territorial ischemia by CT daisy keller. ACT 112: Negative or not required by law. Electronically signed by: Bryant Graves M.D. 12/09/2022 6:25 PM
[2022-12-09 18:45] LABS: Partial Thromboplastin Ratio 1.3; Partial Thromboplastin Time 34.4 Seconds (21.0-31.0); Prothrombin Time 11.1 Seconds (9.0-12.0)
--- NOTE | 2022-12-09 18:54 | CT Scan Report ---
CT SCAN OF THE ABDOMEN AND PELVIS WITHOUT IV CONTRAST CLINICAL HISTORY: Hematuria. COMPARISON STUDY: Abdominal CT dated 07/05/2021. TECHNIQUE: CT scan of the abdomen and pelvis is performed from the lung bases to the proximal femora. Images are reviewed in the axial, sagittal, and coronal planes. IV contrast was not administered for this examination. A dose lowering technique was utilized adhering to the principles of ALARA. The ex amination is degraded by motion artifact, as well as by streak artifact from the left arm which could not be elevated above the abdomen. CT DOSE: 1127.20 mGy.cm FINDINGS: Lung bases: The patient is status post midline sternotomy. The heart is mildly enlarged and without p ericardial effusion. The coronary arteries and mitral annulus are densely calcified. The lung bases a re clear noting bibasilar scarring/atelectasis. Liver: The unenhanced liver is top normal in size and demonstrates diffusely diminished attenuation i ndicating steatosis. Fatty sparing is seen adjacent to the gallbladder fossa. There is no intrahepati c biliary ductal dilatation. Gallbladder: Unremarkable. Spleen: The spleen is enlarged, measuring 14.9 cm in length. Pancreas: Unremarkable. 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 The rig ht adrenal gland is normal in appearance. Kidneys: There is asymmetric cortical atrophy of the left kidney as compared to the right. This is si milar to previous. No hydronephrosis is seen. There are at least 3 punctate nonobstructing right olvin l calculi. No left renal calculi are seen and there is no ureteral stone. There is no evidence of con tour deforming renal mass lesion. Abdominal vasculature: The abdominal aorta is normal in course and caliber noting mild to moderate at herosclerotic calcification. Bowel: There is rectosigmoid fecal retention mild to moderate constipation. No bowel obstruction is s een. The appendix is well-visualized and normal. Peritoneum: There is no intraperitoneal free air or abdominal ascites. Lymphadenopathy: None. Pelvic viscera: The prostate gland is enlarged and heterogeneous noting median lobe hypertrophy. The bladder is mildly distended, and the wall is thickened/trabeculated indicating chronic outlet obstruc tion. Skeletal structures: The skeletal structures are osteopenic. There is mild lumbosacral spondylosis. N o lytic or blastic lesions are seen. There are chronic/healed left-sided rib fractures. IMPRESSION: 1. No acute infectious or inflammatory findings are identified in the abdomen or pelvis. 2. Right-sided nephrolithiasis. 3. There is asymmetrical cortical atrophy of the left kidney as compared to the right. This is simila r to previous. 4. Hepatic steatosis. 5. Splenomegaly. 6. 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 7. Additional findings as above ACT 112: Negative or not required by law. Electronically signed by: Bryant Graves M.D. 12/09/2022 6:52 PM
[2022-12-09 19:00] LABS: Alanine Aminotransferase 24 U/L (7-52); Albumin Globulin Ratio 1.2 (0.9-2); Albumin Level 4.4 gm/dl (3.4-5.0); Alkaline Phosphatase 91 U/L (34-104); Anion Gap 10 (3-11); Aspartate Aminotransferase 29 U/L (13-39); BUN Creatinine Ratio 10.1 (10-20); Bilirubin,Total 0.6 mg/dl (0.2-1.0); Blood Urea Nitrogen 20 mg/dl (6-23); Calcium 9.7 mg/dl (8.5-10.1); Carbon Dioxide 26 mmol/L (21-32); Chloride 103 mmol/L (98-107); Est GFR (African American) 36.9 ml/min; Est GFR (Non-African American) 31.9 ml/min; Globulin 3.6 gm/dl (2.5-4.0); Glucose 100 mg/dl (70-99(Fasting)); Lipase 45 U/L (11-82); Potassium 2.9 mmol/L (3.5-5.1); Sodium 139 mmol/L (136-145)
--- NOTE | 2022-12-09 19:01 | XRay Report ---
SINGLE VIEW CHEST CLINICAL HISTORY: Fever. FINDINGS: An AP, portable, upright chest radiograph is compared to study dated 07/03/2021. Correlation is made with chest CT dated 03/16/[address] performed earlier the same day 12/09/2022. The examination is degraded by portable technique and patient rotation. The patient is status post midli ne sternotomy. The heart is mildly enlarged. The pulmonary vasculature is noncongested. Chronic inter stitial thickening as on the previous. A calcified granuloma is seen in the left upper lobe. Scarring /atelectasis is noted at the lung bases. No airspace consolidation or large pleural effusion is ident ified. No pneumothorax is seen. The skeletal structures are osteopenic. The bony thorax is grossly in tact. IMPRESSION: Cardiomegaly with no acute cardiopulmonary abnormality identified. ACT 112: Negative or not required by law. Electronically signed by: Bryant Graves M.D. 12/09/2022 6:59 PM
[2022-12-09 19:06] LABS: Troponin I High Sensitivity 9.8 pg/ml (0-20)
[2022-12-09 19:34] LABS: Appearance Urine Clear (Clear); Bacteria Urine Automated Negative (Negative); Bilirubin Urine Negative (Negative); Blood Urine Negative (Negative); Color Urine Yellow; Glucose Urine UA Negative (Negative); Ketones Urine Negative (Negative); Leukocyte Esterase Urine Negative (Negative); Nitrite Urine Negative (Negative); Protein Urine 2+ (Negative); RBC Urine Automated 0-4 /hpf (0-4); Specific Gravity Urine 1.021 (1.000-1.030); Urobilinogen Urine Negative (Negative); pH Urine 5.5 (4.5-7.5)
[2022-12-09] MEDS ORDERED: SODIUM CHLORIDE 0.9% 1000ML 500 ML IV ONE (20:30)
[2022-12-09] MEDS ORDERED: POTASSIUM CHLORIDE CRTAB 20 MEQ TABCR PO STA (20:30)
[2022-12-09] MEDS ORDERED: POTASSIUM CHLORIDE / WTR 10 MEQ/100 ML PLCT IV ONE (20:30)
--- NOTE | 2022-12-09 21:58 | History & Physical Report ---
Date of Service December 09, 2022 Assessment & Plan (1) HTN (hypertension): (2) DM (diabetes mellitus): (3) Ambulatory dysfunction: (4) Restless leg syndrome: (5) GERD (gastroesophageal reflux disease): (6) Hypertriglyceridemia: (7) CKD (chronic kidney disease) stage 3, GFR 30-59 ml/min: (8) CAD (coronary artery disease): (9) Depression: (10) S/P CABG x 3: (11) Atrial fibrillation: (12) Left-sided weakness: (13) Left hemiplegia: (14) Cerebrovascular disease: Plan Left lower extremity weakness/left hemiplegia/secondary to CVA- Persistent and gradually worsening over time He has been at [facility] in the past for physical therapy Presently is living alone at home We will consult PT/OT Would likely benefit from at the very least short-term inpatient rehab, but name may need to be considered for long-term inpatient nursing care Hypertension/atrial fibrillation- Continue amlodipine, clopidogrel, Eliquis, lisinopril and metoprolol succinate Hypertriglyceridemia- Continue Zetia and fenofibrate RLS- Continue ropinirole GERD- Continue omeprazole/pantoprazole twice daily Constipation- Continue docusate sodium Continue vitamin D3, ferrous sulfate, vitamin B complex, and Multivite with minerals History of Present Illness Chief Complaint: The patient is brought to the emergency department via ambulance due to generalized weakness and is accompanied by his daughter who provided most of the initial history to the ED. Primary Care Provider: Alejandrina Brooks DO The patient is a 76-year-old male with a past medical history including hypertension, diabetes mellitus, GERD, RLS, hypertriglyceridemia, TIA, CKD, CAD, status post CABG x3, depression, diaphragmatic paralysis, SNHL of both ears, atrial fibrillation, left-sided weakness post CVA, chronic anticoagulation with Eliquis and generalized weakness. The patient primarily complains of decreased ability to get around due to left lower extremity weakness, which has been persistent and gradually worsening since his CVA he otherwise has no acute complaints Allergies Allergy/AdvReac Type Severity Reaction Status Date / Time Corticosteroids Allergy Unknown Unknown Verified 12/09/22 22:27 (Glucocorticoids) niacin Allergy Unknown ARTHRALGIAS Verified 12/09/22 22:28 FROM ADVICOR telithromycin Allergy Unknown ARTHRALGIAS Verified 03/15/23 22:28 FROM ADVICOR atorvastatin AdvReac Intermediate Muscle Pain Verified 12/09/22 22:27 lovastatin AdvReac Intermediate ARTHRALGIAS Verified 12/09/22 22:27 FROM ADVICOR Yjeiuus-UPG-VgD Reductase AdvReac Intermediate Muscle Pain Verified 12/09/22 22:28 Inhibitor [Fulejjq-Ovm-Syu Reductase Inhibitor] Home Medications Medication Instructions Recorded Confirmed Type ezetimibe 10 mg tablet 10 mg PO QAM 11/11/19 12/09/22 History fenofibrate nanocrystallized 48 mg 48 mg PO QAM 11/27/20 12/09/22 History tablet apixaban 5 mg tablet (Eliquis) 5 mg PO BID 01/17/21 12/09/22 History ferrous sulfate 325 mg (65 mg 325 mg PO AMPM 01/17/21 12/09/22 History iron) tablet cholecalciferol (vitamin D3) 50 2,000 unit PO QAM 01/27/21 12/09/22 History mcg (2,000 unit) capsule (Vitamin D3) docusate sodium 100 mg capsule 100 mg PO TID 01/27/21 12/09/22 History clopidogrel 75 mg tablet 75 mg PO QAM #30 tabs 01/29/21 12/09/22 Rx vitamin B complex (Vitamins B 1 tab PO QAM #30 caps 01/30/21 12/09/22 Rx Complex capsule) multivitamin with minerals 1 tab PO DAILY 03/16/21 12/09/22 History omeprazole 20 mg capsule,delayed 20 mg PO BID 03/16/21 12/09/22 History release ropinirole 0.5 mg tablet 1 mg PO HS 07/22/21 12/09/22 History lisinopril 10 mg tablet 10 mg PO DAILY #30 tabs 07/28/22 12/09/22 Rx amlodipine 2.5 mg tablet 2.5 mg PO DAILY 12/09/22 12/09/22 History metoprolol succinate 25 mg 25 mg PO HS 12/09/22 12/09/22 History tablet,extended release 24 hr Past Med/Surg History Medical History (Updated 12/10/22 @ 03:00 by Duran Lynch MD) Ambulatory dysfunction CAD (coronary artery disease) CHI (closed head injury) CKD (chronic kidney disease) stage 3, GFR 30-59 ml/min CVA (cerebral vascular accident) january 2021 Depression Diaphragmatic paralysis Diarrhea Diarrhea Elevated lipase Fall Fall Generalized weakness GERD (gastroesophageal reflux disease) HTN (hypertension) Hypercholesteremia Hypertriglyceridemia Hypotension Left rib fracture Physical deconditioning Postoperative atrial fibrillation Presence of arterial stent L leg, unable to relate exact location. Pressure ulcer of right buttock Restless leg syndrome Stroke TIA (transient ischemic attack) Type II diabetes mellitus Surgical History H/O knee surgery stent behind left knee 2017 H/O vasectomy History of angioplasty of peripheral vessel LLE angiogram with DRIVING TEACHER popliteal 05/23/2018 Hx of colonoscopy 2017 S/P CABG x 3 Family History Grandfather Colorectal cancer Mother Diabetes Hypertension Brother Stroke Social History Smoking Status: Former smoker Tobacco Type: Cigarettes Second Hand Exposure: No; Hx Alcohol Use: Yes Alcohol type: beer Hx Substance Use: No Preferred Language: Citizen Of The [place] Communication Ability: Effective Investment Strategist Required: No Beliefs That Will Affect Care: None marital status: Single Current Living Situation: Alone Current Living Situation Comment: JUST DISCHARGED FROM [facility] TO HOME ALONE current occupational status: retired Feels Safe at Home: Yes Assistive Devices: Walker and Wheelchair Review of Systems Review of Systems: The patient denies chest pain, palpitations, shortness of breath, dyspnea on exertion, cough, lower extremity swelling, sore throat, fevers, chills, sweats, weight change, fatigue, nausea, vomiting, diarrhea , constipation, abdominal pain, pelvic pain, blood in urine or stool, dysuria, urinary frequency or urgency, lightheadedness, dizziness, headache, loss of consciousness, rash, abnormal bruising or bleeding, generalized arthralgias or myalgias, back or neck pain, or night sweats. The review of systems is otherwise negative other than for that already noted above, and at least 10 systems have been reviewed. Physical Exam Physical Exam: The patient is awake, alert and oriented 3, well developed and well nourished, normocephalic and atraumatic, lying in bed and in no acute distress. HEENT--PERRL, EOMI, mucous membranes and oropharynx normal. Neck--supple. No JVD. No bruits. Thyroid normal, trachea midline, no adenopathy. Heart--normal S1 and S2. No murmurs, rubs or gallops. Lungs--clear bilaterally, no respiratory distress, no accessory muscle use. Abdomen--normal bowel sounds and soft. Nontender. Nondistended, no hernias or masses, no organomegaly. Extremities--no cyanosis or clubbing. No edema. There are good distal pulses b/l. Dermatologic--normal skin turgor, normal color, no abnormal lymph nodes, no rash. Neurologic--cranial nerves II through XII grossly intact. Rheumatologic--normal range of motion, but mildly decreased strength left lower extremity compared to right Psychiatric--normal affect. Results & Data Results & Data Vital Signs (Past 12 Hours) Vital Signs Temp Pulse Resp BP Pulse Ox O2 Del Method 12/09/22 19:30 83 14 97 12/09/22 19:30 160/90 H 12/09/22 19:20 85 14 97 12/09/22 19:10 81 16 97 12/09/22 19:00 84 15 95 12/09/22 19:00 182/87 H 12/09/22 18:50 87 15 97 12/09/22 18:40 85 20 96 12/09/22 18:30 86 15 97 12/09/22 18:30 155/78 H 12/09/22 18:20 88 15 95 12/09/22 18:10 98 H 20 96 12/09/22 18:06 97 H 14 95 12/09/22 18:06 156/94 H 12/09/22 18:05 98 H 16 12/09/22 17:50 93 H 15 96 12/09/22 17:40 98 H 18 95 12/09/22 17:30 113 H 15 98 12/09/22 17:48 99 H 15 95 Room Air 12/09/22 17:40 98 H 12/09/22 17:36 36.9 C 99 H 20 158/102 H 95 Room Air Laboratory Results Laboratory Results WBC 7.24 K/ul (4.8-10.8) 12/09/22 17:41 RBC 5.71 M/uL (4.70-6.10) 12/09/22 17:41 Hgb 17.1 g/dl (14.0-18.0) 12/09/22 17:41 Hct 50.0 % (42.0-52.0) 12/09/22 17:41 MCV 87.6 fL (80.0-100.0) 12/09/22 17:41 MCH 29.9 pg (25.0-34.0) 12/09/22 17: MCHC 34.2 g/dL (32.0-36.0) 12/09/22 17: RDW Std Deviation 39.6 fL (36.4-46.3) 12/09/22 17: RDW Coeff of Brice 12.5 % (11.5-14.5) 12/09/22 17: Plt Count 153 K/uL (130-400) 12/09/22 17:41 MPV 11.5 fL (9.4-12.4) 12/09/22 17:41 Immature Gran % (Auto) 0.6 % 12/09/22 17:41 Neut % (Auto) 71.4 % 12/09/22 17:41 Lymph % (Auto) 16.7 % 12/09/22 17:41 [place] % (Auto) 8.8 % 12/09/22 17:41 Eos % (Auto) 1.7 % 12/09/22 17:41 Baso % (Auto) 0.8 % 12/09/22 17:41 Neut # (Auto) 5.17 K/uL (1.40-6.50) 12/09/22 17:41 Lymph # (Auto) 1.21 K/uL (1.2-3.4) 12/09/22 17:41 [place] # (Auto) 0.64 K/uL (0.11-0.59) H 12/09/22 17:41 Eos # (Auto) 0.12 K/uL (0-0.50) 12/09/22 17:41 Baso # (Auto) 0.06 K/uL (0-0.2) 12/09/22 17:41 Immature Gran # (Auto) 0.04 K/uL (0.01-0.20) 12/09/22 17:41 PT 11.1 Seconds (9.0-12.0) 12/09/22 17:41 INR 1.0 (0.9-1.1) 12/09/22 17:41 APTT 34.4 Seconds (21.0-31.0) H 12/09/22 17:41 PTT Ratio 1.3 12/09/22 17:41 Sodium 139 mmol/L (136-145) 12/09/22 17:41 Potassium 2.9 mmol/L (3.5-5.1) L 12/09/22 17:41 Chloride 103 mmol/L (98-107) 12/09/22 17:41 Carbon Dioxide 26 mmol/L (21-32) 12/09/22 17:41 Anion Gap 10 (3-11) 12/09/22 17:41 BUN 20 mg/dl (6-23) 12/09/22 17:41 Creatinine 1.98 mg/dl (0.6-1.4) H 12/09/22 17:41 Est Cr Clr Drug Dosing Not Reportable 12/09/22 17:41 Est GFR ( Amer) 36.9 ml/min 12/09/22 17:41 Est GFR (Non-Af Amer) 31.9 ml/min 12/09/22 17:41 BUN/Creatinine Ratio 10.1 (10-20) 12/09/22 17:41 Glucose 100 mg/dl (70-99(Fasting)) H 12/09/22 17:41 Calcium 9.7 mg/dl (8.5-10.1) 12/09/22 17:41 Magnesium Cancelled 12/09/22 20:31 Total Bilirubin 0.6 mg/dl (0.2-1.0) 12/09/22 17:41 AST 29 U/L (13-39) 12/09/22 17:41 ALT 24 U/L (7-52) 12/09/22 17:41 Alkaline Phosphatase 91 U/L (34-104) 12/09/22 17:41 Troponin I High Sens 9.8 pg/ml (0-20) 12/09/22 17:41 Total Protein 8.0 gm/dl (6.0-8.3) 12/09/22 17:41 Albumin 4.4 gm/dl (3.4-5.0) 12/09/22 17:41 Globulin 3.6 gm/dl (2.5-4.0) 12/09/22 17:41 Albumin/Globulin Ratio 1.2 (0.9-2) 12/09/22 17:41 Lipase 45 U/L (11-82) 12/09/22 17:41 Urine Color Yellow 12/09/22 19:10 Urine Appearance Clear (Clear) 12/09/22 19:10 Urine pH 5.5 (4.5-7.5) 12/09/22 19:10 Ur Specific [place] 1.021 (1.000-1.030) 12/09/22 19:10 Urine Protein 2+ (Negative) H 12/09/22 19:10 Urine Glucose (UA) Negative (Negative) 12/09/22 19:10 Urine Ketones Negative (Negative) 12/09/22 19:10 Urine Blood Negative (Negative) 12/09/22 19:10 Urine Nitrite Negative (Negative) 12/09/22 19:10 Urine Bilirubin Negative (Negative) 12/09/22 19:10 Urine Urobilinogen Negative (Negative) 12/09/22 19:10 Ur Leukocyte Esterase Negative (Negative) 12/09/22 19:10 Urine WBC (Auto) 1-5 /hpf (0-5) 12/09/22 19:10 Urine RBC (Auto) 0-4 /hpf (0-4) 12/09/22 19:10 U Hyaline Cast (Auto) 1-5 /lpf (0-5) 12/09/22 19:10 U Epithel Cells (Auto) 5-10 /lpf (0-5) H 12/09/22 19:10 Urine Bacteria (Auto) Negative (Negative) 12/09/22 19:10 SARS-CoV-2 (PCR) NEGATIVE (Negative) 12/09/22 20:40 Influenza Type A (PCR) Negative (Neg) 12/09/22 20:40 Influenza Type B (PCR) Negative (Neg) 12/09/22 20:40 RSV (RT-PCR) Negative (Neg) 12/09/22 20:40 Impressions Abdomen/Pelvis CT 12/09/22 17:45 CT SCAN OF THE ABDOMEN AND PELVIS WITHOUT IV CONTRAST CLINICAL HISTORY: Hematuria. COMPARISON STUDY: Abdominal CT dated 07/05/2021. TECHNIQUE: CT scan of the abdomen and pelvis is performed from the lung bases to the proximal femora. Images are reviewed in the axial, sagittal, and coronal planes. IV contrast was not administered for this examination. A dose lowering technique was utilized adhering to the principles of ALARA. The examination is degraded by motion artifact, as well as by streak artifact from the left arm which could not be elevated above the abdomen. CT DOSE: 1127.20 mGy.cm FINDINGS: Lung bases: The patient is status post midline sternotomy. The heart is mildly enlarged and without pericardial effusion. The coronary arteries and mitral annulus are densely calcified. The lung bases are clear noting bibasilar scarring/atelectasis. Liver: The unenhanced liver is top normal in size and demonstrates diffusely diminished attenuation indicating steatosis. Fatty sparing is seen adjacent to the gallbladder fossa. There is no intrahepatic biliary ductal dilatation. Gallbladder: Unremarkable. Spleen: The spleen is enlarged, measuring 14.9 cm in length. Pancreas: Unremarkable. 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 The right adrenal gland is normal in appearance. Kidneys: There is asymmetric cortical atrophy of the left kidney as compared to the right. This is similar to previous. No hydronephrosis is seen. There are at least 3 punctate nonobstructing right renal calculi. No left renal calculi are seen and there is no ureteral stone. There is no evidence of contour deforming renal mass lesion. Abdominal vasculature: The abdominal aorta is normal in course and caliber noting mild to moderate atherosclerotic calcification. Bowel: There is rectosigmoid fecal retention mild to moderate constipation. No bowel obstruction is seen. The appendix is well-visualized and normal. Peritoneum: There is no intraperitoneal free air or abdominal ascites. Lymphadenopathy: None. Pelvic viscera: The prostate gland is enlarged and heterogeneous noting median lobe hypertrophy. The bladder is mildly distended, and the wall is thickened/trabeculated indicating chronic outlet obstruction. Skeletal structures: The skeletal structures are osteopenic. There is mild lumbosacral spondylosis. No lytic or blastic lesions are seen. There are chronic/healed left-sided rib fractures. IMPRESSION: 1. No acute infectious or inflammatory findings are identified in the abdomen or pelvis. 2. Right-sided nephrolithiasis. 3. There is asymmetrical cortical atrophy of the left kidney as compared to the right. This is similar to previous. 4. Hepatic steatosis. 5. Splenomegaly. 6. 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 7. Additional findings as above ACT 112: Negative or not required by law. Electronically signed by: Bryant Graves M.D. 12/09/2022 6:52 PM Chest X-Ray 12/09/22 17:45 SINGLE VIEW CHEST CLINICAL HISTORY: Fever. FINDINGS: An AP, portable, upright chest radiograph is compared to study dated 07/03/2021. Correlation is made with chest CT dated 03/16/[address] performed earlier the same day 12/09/2022. The examination is degraded by portable technique and patient rotation. The patient is status post midline sternotomy. The heart is mildly enlarged. The pulmonary vasculature is noncongested. Chronic interstitial thickening as on the previous. A calcified granuloma is seen in the left upper lobe. Scarring/atelectasis is noted at the lung bases. No airspace consolidation or large pleural effusion is identified. No pneumothorax is seen. The skeletal structures are osteopenic. The bony thorax is grossly intact. IMPRESSION: Cardiomegaly with no acute cardiopulmonary abnormality identified. ACT 112: Negative or not required by law. Electronically signed by: Bryant Graves M.D. 12/09/2022 6:[address] 12/09/22 17:45 CT SCAN OF THE BRAIN WITHOUT IV CONTRAST CLINICAL HISTORY: Generalized weakness. Fatigue. COMPARISON STUDY: CT and MRI of the brain dated 07/27/2022. TECHNIQUE: Unenhanced axial CT scan of the brain is performed from the vertex to the skull base. A dose lowering technique was utilized adhering to the principles of ALARA. FINDINGS: Brain parenchyma: There is age-related involutional change noting moderate to advanced confluent subcortical and periventricular microangiopathic disease. There is no hemorrhage, mass effect, or evidence of acute territorial ischemia by CT criteria. Chin-white matter differentiation is preserved. Chronic lacunar infarcts are noted in the right thalamus and the right periventricular white matter. No extra-axial fluid collection is seen. Ventricles, sulci, cisterns: Prominent secondary to involutional change. Intracranial vasculature: There is atherosclerotic calcification of the cavernous carotid and vertebral arteries. Calvarium: Unremarkable. Sinuses and mastoids: There is evidence of previous paranasal sinus surgery. Mild to moderate mucosal thickening is noted within the frontal, maxillary, ethmoid, and sphenoid sinuses. The mastoid air cells are well pneumatized. Orbits: The bony orbits are grossly intact. IMPRESSION: There is no hemorrhage, mass effect, or evidence of acute territorial ischemia by CT criteria. ACT 112: Negative or not required by law. Electronically signed by: Bryant Graves M.D. 12/09/2022 6:25 PM Code Status & VTE Plan Code Status Full code VTE Prophylaxis Plan VTE Prophylaxis will be ordered: Yes PG Care Time/CCT Total # of Minutes Spent Total Time Spent with Patient: Total time spent is greater than 50% in coordination of care (as documented) at patient's floor/unit and/or counseling patient: Coding Level of Care Code 38296 INT INP/OBS CARE 375MIN Diagnoses HTN (hypertension) I10 Hypertension type: essential hypertension DM (diabetes mellitus) E11.9 Diabetes mellitus type: type 2 Diabetes mellitus penitentiary insulin use: without exterminator use Diabetes mellitus complication status: without complication Ambulatory dysfunction R26.2 Restless leg syndrome G25.81 GERD (gastroesophageal reflux disease) K21.9 Esophagitis presence: esophagitis presence not specified Hypertriglyceridemia E78.1 CKD (chronic kidney disease) stage 3, GFR 30-59 ml/min N18.30 CAD (coronary artery disease) I25.110 Associated angina: with unstable angina Coronary Disease-Associated Artery/Lesion type: [place] artery [place] vs. transplanted heart: [place] heart Depression F32.9 Depression Type: unspecified S/P CABG x 3 Z95.1 Atrial fibrillation I48.0 Atrial fibrillation type: paroxysmal Left-sided weakness R53.1 Left hemiplegia G81.94 Cerebrovascular disease I67.9 (1) HTN (hypertension) Hypertension type: essential hypertension Qualified Code(s): I10 - Essential (primary) hypertension (2) DM (diabetes mellitus) Diabetes mellitus type: type 2 Diabetes mellitus exterminator insulin use: without penitentiary use Diabetes mellitus complication status: without complication Qualified Code(s): E11.9 - Type 2 diabetes mellitus without complications (5) GERD (gastroesophageal reflux disease) Esophagitis presence: esophagitis presence not specified Qualified Code(s): K21.9 - Gastro-esophageal reflux disease without esophagitis (8) CAD (coronary artery disease) Associated angina: with unstable angina Coronary Disease-Associated Artery/Lesion type: [place] artery [place] vs. transplanted heart: [place] heart Qualified Code(s): I25.110 - Atherosclerotic heart disease of [place] coronary artery with unstable angina pectoris (9) Depression Depression Type: unspecified Qualified Code(s): F32.9 - Major depressive disorder, single episode, unspecified (11) Atrial fibrillation Atrial fibrillation type: paroxysmal Qualified Code(s): I48.0 - Paroxysmal atrial fibrillation
[2022-12-09 23:03] LABS: Influenza A virus by PCR Negative (Neg); Influenza B virus by PCR Negative (Neg); RSV by PCR Negative (Neg); SARS CoV2 RNA(COVID-19) Ceph NEGATIVE (Negative)
[2022-12-10] MEDS ORDERED: ACETAMINOPHEN 325 MG TAB PO PRN (00:28)
[2022-12-10] MEDS ORDERED: ONDANSETRON INJ 2 MG/ML 2 ML VIAL IV PRN (00:28)
[2022-12-10] MEDS: FERROUS SULFATE 325 MG TAB PO SCH ×2 (01:19→08:05)
[2022-12-10] MEDS: PANTOprazole 40 MG TAB PO SCH ×2 (01:19→08:04)
[2022-12-10] MEDS: DOCUSATE SODIUM 100 MG CAP PO SCH ×2 (08:06→13:15)
[2022-12-10] MEDS ORDERED: HEPARIN SOD 5,000 UNIT/0.5 ML VIAL SQ SCH (09:00)
[2022-12-10] MEDS ORDERED: EZETIMIBE 10 MG TABLET PO SCH (09:00)
[2022-12-10] MEDS ORDERED: VITAMIN B COMPLEX TAB PO SCH (09:00)
[2022-12-10] MEDS ORDERED: TAMSULOSIN HCL 0.4 MG CAP PO SCH (09:00)
[2022-12-10] MEDS ORDERED: FENOFIBRATE NANOCRYSTALLIZED 48 MG TABLET PO SCH (09:00)
[2022-12-10] MEDS ORDERED: CEROVITE ADV FORMULA TAB PO SCH (09:00)
[2022-12-10] MEDS ORDERED: CLOPIDOGREL BISULFATE 75 MG TAB PO SCH (09:00)
[2022-12-10] MEDS ORDERED: CHOLECALCIFEROL 1,000 UNITS 25 MCG TAB PO SCH (09:00)
[2022-12-10 12:46] LABS: Basophils # (auto) 0.04 K/uL (0-0.2); Basophils % (auto) 0.7 %; Eosinophils # (auto) 0.14 K/uL (0-0.50); Eosinophils % (auto) 2.5 %; Hematocrit (blood only) 39.6 % (42.0-52.0); Hemoglobin 13.6 g/dl (14.0-18.0); Immature Granulocytes # (auto) 0.02 K/uL (0.01-0.20); Immature Granulocytes % (auto) 0.4 %; Lymphocytes # (auto) 1.33 K/uL (1.2-3.4); Lymphocytes % (auto) 23.8 %; Mean Corpuscular Hemoglobin 30.2 pg (25.0-34.0); Mean Corpuscular Hgb Conc 34.3 g/dL (32.0-36.0); Mean Corpuscular Volume 87.8 fL (80.0-100.0); Mean Platelet Volume 11.1 fL (9.4-12.4); Monocytes % (auto) 8.9 %; Neutrophils # (auto) 3.56 K/uL (1.40-6.50); Neutrophils % (auto) 63.7 %; Platelet Count 120 K/uL (130-400); RDW Coefficient of Variation 12.4 % (11.5-14.5); RDW Standard Deviation 39.9 fL (36.4-46.3); Red Blood Count 4.51 M/uL (4.70-6.10); White Blood Count 5.59 K/ul (4.8-10.8)
[2022-12-10] MEDS ORDERED: amLODIPine BESYLATE 5 MG TAB PO SCH (14:15)
--- NOTE | 2022-12-10 17:22 | Discharge Summary ---
Date of Service December 10, 2022 Admission HPI Per Admitting Provider The patient is a 76-year-old male with a past medical history including hypertension, diabetes mellitus, GERD, RLS, hypertriglyceridemia, TIA, CKD, CAD, status post CABG x3, depression, diaphragmatic paralysis, SNHL of both ears, atrial fibrillation, left-sided weakness post CVA, chronic anticoagulation with Eliquis and generalized weakness. The patient primarily complains of decreased ability to get around due to left lower extremity weakness, which has been persistent and gradually worsening since his CVA he otherwise has no acute complaints Admission Exam Per Admitting Provider The patient is awake, alert and oriented 3, well developed and well nourished, normocephalic and atraumatic, lying in bed and in no acute distress. HEENT--PERRL, EOMI, mucous membranes and oropharynx normal. Neck--supple. No JVD. No bruits. Thyroid normal, trachea midline, no adenopathy. Heart--normal S1 and S2. No murmurs, rubs or gallops. Lungs--clear bilaterally, no respiratory distress, no accessory muscle use. Abdomen--normal bowel sounds and soft. Nontender. Nondistended, no hernias or masses, no organomegaly. Extremities--no cyanosis or clubbing. No edema. There are good distal pulses b/l. Dermatologic--normal skin turgor, normal color, no abnormal lymph nodes, no rash. Neurologic--cranial nerves II through XII grossly intact. Rheumatologic--normal range of motion, but mildly decreased strength left lower extremity compared to right Psychiatric--normal affect. Principal Diagnosis Weakness, dehydration Discharge Exam Constitutional WD/WN, vitals as above Eyes Anicteric sclera ENMT Moist mucous membranes Neck trachea midline, no thyromegaly Respiratory normal respiratory effort, lungs clear to auscultation Cardiovascular Regular rate and rhythm. No rubs or gallop. No lower extremity edema. Gastrointestinal (Abdomen) normal bowel sounds, soft, nontender, no hepatosplenomegaly Musculoskeletal Able to move all limbs independently. Neuro exam without gross defect. Skin no rashes, warm and dry Psychiatric A+Ox3, euthymic affect Discharge Data Allergies Allergy/AdvReac Type Severity Reaction Status Date / Time Corticosteroids Allergy Unknown Unknown Verified 12/09/22 22:27 (Glucocorticoids) niacin Allergy Unknown ARTHRALGIAS Verified 12/09/22 22:28 FROM ADVICOR telithromycin Allergy Unknown ARTHRALGIAS Verified 12/09/22 22:28 FROM ADVICOR atorvastatin AdvReac Intermediate Muscle Pain Verified 12/09/22 22:27 lovastatin AdvReac Intermediate ARTHRALGIAS Verified 12/09/22 22:27 FROM ADVICOR Jvznxct-IQM-CyU Reductase AdvReac Intermediate Muscle Pain Verified 12/09/22 22:28 Inhibitor [Elcsrgp-Msa-Bgx Reductase Inhibitor] Consultations 12/09/22 21:28 ED Decision to Admit Stat Ordered Studies 12/09/22 17:45 CT abd pelvis wo con Stat CT head/brain wo con Stat Abdomen/Pelvis CT 12/09/22 17:45 CT SCAN OF THE ABDOMEN AND PELVIS WITHOUT IV CONTRAST CLINICAL HISTORY: Hematuria. COMPARISON STUDY: Abdominal CT dated 07/05/2021. TECHNIQUE: CT scan of the abdomen and pelvis is performed from the lung bases to the proximal femora. Images are reviewed in the axial, sagittal, and coronal planes. IV contrast was not administered for this examination. A dose lowering technique was utilized adhering to the principles of ALARA. The examination is degraded by motion artifact, as well as by streak artifact from the left arm which could not be elevated above the abdomen. CT DOSE: 1127.20 mGy.cm FINDINGS: Lung bases: The patient is status post midline sternotomy. The heart is mildly enlarged and without pericardial effusion. The coronary arteries and mitral annulus are densely calcified. The lung bases are clear noting bibasilar scarring/atelectasis. Liver: The unenhanced liver is top normal in size and demonstrates diffusely diminished attenuation indicating steatosis. Fatty sparing is seen adjacent to the gallbladder fossa. There is no intrahepatic biliary ductal dilatation. Gallbladder: Unremarkable. Spleen: The spleen is enlarged, measuring 14.9 cm in length. Pancreas: Unremarkable. 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 The right adrenal gland is normal in appearance. Kidneys: There is asymmetric cortical atrophy of the left kidney as compared to the right. This is similar to previous. No hydronephrosis is seen. There are at least 3 punctate nonobstructing right renal calculi. No left renal calculi are seen and there is no ureteral stone. There is no evidence of contour deforming renal mass lesion. Abdominal vasculature: The abdominal aorta is normal in course and caliber noting mild to moderate atherosclerotic calcification. Bowel: There is rectosigmoid fecal retention mild to moderate constipation. No bowel obstruction is seen. The appendix is well-visualized and normal. Peritoneum: There is no intraperitoneal free air or abdominal ascites. Lymphadenopathy: None. Pelvic viscera: The prostate gland is enlarged and heterogeneous noting median lobe hypertrophy. The bladder is mildly distended, and the wall is thickened/trabeculated indicating chronic outlet obstruction. Skeletal structures: The skeletal structures are osteopenic. There is mild lumbosacral spondylosis. No lytic or blastic lesions are seen. There are chronic/healed left-sided rib fractures. IMPRESSION: 1. No acute infectious or inflammatory findings are identified in the abdomen or pelvis. 2. Right-sided nephrolithiasis. 3. There is asymmetrical cortical atrophy of the left kidney as compared to the right. This is similar to previous. 4. Hepatic steatosis. 5. Splenomegaly. 6. 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 7. Additional findings as above ACT 112: Negative or not required by law. Electronically signed by: Bryant Graves M.D. 12/09/2022 6:52 PM Chest X-Ray 12/09/22 17:45 SINGLE VIEW CHEST CLINICAL HISTORY: Fever. FINDINGS: An AP, portable, upright chest radiograph is compared to study dated 07/03/2021. Correlation is made with chest CT dated 03/16/[address] performed earlier the same day 12/09/2022. The examination is degraded by portable technique and patient rotation. The patient is status post midline sternotomy. The heart is mildly enlarged. The pulmonary vasculature is noncongested. Chronic interstitial thickening as on the previous. A calcified granuloma is seen in the left upper lobe. Scarring/atelectasis is noted at the lung bases. No airspace consolidation or large pleural effusion is identified. No pneumothorax is seen. The skeletal structures are osteopenic. The bony thorax is grossly intact. IMPRESSION: Cardiomegaly with no acute cardiopulmonary abnormality identified. ACT 112: Negative or not required by law. Electronically signed by: Bryant Graves M.D. 12/09/2022 6:[address] 12/09/22 17:45 CT SCAN OF THE BRAIN WITHOUT IV CONTRAST CLINICAL HISTORY: Generalized weakness. Fatigue. COMPARISON STUDY: CT and MRI of the brain dated 07/27/2022. TECHNIQUE: Unenhanced axial CT scan of the brain is performed from the vertex to the skull base. A dose lowering technique was utilized adhering to the principles of ALARA. FINDINGS: Brain parenchyma: There is age-related involutional change noting moderate to advanced confluent subcortical and periventricular microangiopathic disease. There is no hemorrhage, mass effect, or evidence of acute territorial ischemia by CT criteria. Chin-white matter differentiation is preserved. Chronic lacunar infarcts are noted in the right thalamus and the right periventricular white matter. No extra-axial fluid collection is seen. Ventricles, sulci, cisterns: Prominent secondary to involutional change. Intracranial vasculature: There is atherosclerotic calcification of the cavernous carotid and vertebral arteries. Calvarium: Unremarkable. Sinuses and mastoids: There is evidence of previous paranasal sinus surgery. Mild to moderate mucosal thickening is noted within the frontal, maxillary, ethmoid, and sphenoid sinuses. The mastoid air cells are well pneumatized. Orbits: The bony orbits are grossly intact. IMPRESSION: There is no hemorrhage, mass effect, or evidence of acute territorial ischemia by CT criteria. ACT 112: Negative or not required by law. Electronically signed by: Bryant Graves M.D. 12/09/2022 6:25 PM 12/10/22 12/09/22 12/09/22 Range/Units 12:20 20:40 20:31 WBC 5.59 (4.8-10.8) K/ul RBC 4.51 L (4.70-6.10) M/uL Hgb 13.6 L D (14.0-18.0) g/dl Hct 39.6 L (42.0-52.0) % MCV 87.8 (80.0-100.0) fL MCH 30.2 (25.0-34.0) pg MCHC 34.3 (32.0-36.0) g/dL RDW Std Deviation 39.9 (36.4-46.3) fL RDW Coeff of Brice 12.4 (11.5-14.5) % Plt Count 120 L (130-400) K/uL MPV 11.1 (9.4-12.4) fL Immature Gran % (Auto) 0.4 % Neut % (Auto) 63.7 % Lymph % (Auto) 23.8 % [place] % (Auto) 8.9 % Eos % (Auto) 2.5 % Baso % (Auto) 0.7 % Neut # (Auto) 3.56 (1.40-6.50) K/uL Lymph # (Auto) 1.33 (1.2-3.4) K/uL [place] # (Auto) 0.50 (0.11-0.59) K/uL Eos # (Auto) 0.14 (0-0.50) K/uL Baso # (Auto) 0.04 (0-0.2) K/uL Immature Gran # (Auto) 0.02 (0.01-0.20) K/uL PT (9.0-12.0) Seconds INR (0.9-1.1) APTT (21.0-31.0) Seconds PTT Ratio Sodium (136-145) mmol/L Potassium (3.5-5.1) mmol/L Chloride (98-107) mmol/L Carbon Dioxide (21-32) mmol/L Anion Gap (3-11) BUN (6-23) mg/dl Creatinine (0.6-1.4) mg/dl Est Cr Clr Drug Dosing Est GFR ( Amer) ml/min Est GFR (Non-Af Amer) ml/min BUN/Creatinine Ratio (10-20) Glucose (70-99(Fasting)) mg/dl Calcium (8.5-10.1) mg/dl Magnesium Cancelled (1.7-2.4) mg/dl Total Bilirubin (0.2-1.0) mg/dl AST (13-39) U/L ALT (7-52) U/L Alkaline Phosphatase (34-104) U/L Troponin I High Sens (0-20) pg/ml Total Protein (6.0-8.3) gm/dl Albumin (3.4-5.0) gm/dl Globulin (2.5-4.0) gm/dl Albumin/Globulin Ratio (0.9-2) Lipase (11-82) U/L Urine Color Urine Appearance (Clear) Urine pH (4.5-7.5) Ur Specific [place] (1.000-1.030) Urine Protein (Negative) Urine Glucose (UA) (Negative) Urine Ketones (Negative) Urine Blood (Negative) Urine Nitrite (Negative) Urine Bilirubin (Negative) Urine Urobilinogen (Negative) Ur Leukocyte Esterase (Negative) Urine WBC (Auto) (0-5) /hpf Urine RBC (Auto) (0-4) /hpf U Hyaline Cast (Auto) (0-5) /lpf U Epithel Cells (Auto) (0-5) /lpf Urine Bacteria (Auto) (Negative) SARS-CoV-2 (PCR) NEGATIVE (Negative) Influenza Type A (PCR) Negative (Neg) Influenza Type B (PCR) Negative (Neg) RSV (RT-PCR) Negative (Neg) 12/09/22 12/09/22 12/09/22 Range/Units 19:10 17:41 17:41 WBC (4.8-10.8) K/ul RBC (4.70-6.10) M/uL Hgb (14.0-18.0) g/dl Hct (42.0-52.0) % MCV (80.0-100.0) fL MCH (25.0-34.0) pg MCHC (32.0-36.0) g/dL RDW Std Deviation (36.4-46.3) fL RDW Coeff of [place]ice (11.5-14.5) % Plt Count (130-400) K/uL MPV (9.4-12.4) fL Immature Gran % (Auto) % Neut % (Auto) % Lymph % (Auto) % [place] % (Auto) % Eos % (Auto) % Baso % (Auto) % Neut # (Auto) (1.40-6.50) K/uL Lymph # (Auto) (1.2-3.4) K/uL [place] # (Auto) (0.11-0.59) K/uL Eos # (Auto) (0-0.50) K/uL Baso # (Auto) (0-0.2) K/uL Immature Gran # (Auto) (0.01-0.20) K/uL PT 11.1 (9.0-12.0) Seconds INR 1.0 (0.9-1.1) APTT 34.4 H (21.0-31.0) Seconds PTT Ratio 1.3 Sodium 139 (136-145) mmol/L Potassium 2.9 L (3.5-5.1) mmol/L Chloride 103 (98-107) mmol/L Carbon Dioxide 26 (21-32) mmol/L Anion Gap 10 (3-11) BUN 20 (6-23) mg/dl Creatinine 1.98 H (0.6-1.4) mg/dl Est Cr Clr Drug Dosing Not Reportable Est GFR ( Amer) 36.9 ml/min Est GFR (Non-Af Amer) 31.9 ml/min BUN/Creatinine Ratio 10.1 (10-20) Glucose 100 H (70-99(Fasting)) mg/dl Calcium 9.7 (8.5-10.1) mg/dl Magnesium 2.0 (1.7-2.4) mg/dl Total Bilirubin 0.6 (0.2-1.0) mg/dl AST 29 (13-39) U/L ALT 24 (7-52) U/L Alkaline Phosphatase 91 (34-104) U/L Troponin I High Sens 9.8 (0-20) pg/ml Total Protein 8.0 (6.0-8.3) gm/dl Albumin 4.4 (3.4-5.0) gm/dl Globulin 3.6 (2.5-4.0) gm/dl Albumin/Globulin Ratio 1.2 (0.9-2) Lipase 45 (11-82) U/L Urine Color Yellow Urine Appearance Clear (Clear) Urine pH 5.5 (4.5-7.5) Ur Specific [place] 1.021 (1.000-1.030) Urine Protein 2+ H (Negative) Urine Glucose (UA) Negative (Negative) Urine Ketones Negative (Negative) Urine Blood Negative (Negative) Urine Nitrite Negative (Negative) Urine Bilirubin Negative (Negative) Urine Urobilinogen Negative (Negative) Ur Leukocyte Esterase Negative (Negative) Urine WBC (Auto) 1-5 (0-5) /hpf Urine RBC (Auto) 0-4 (0-4) /hpf U Hyaline Cast (Auto) 1-5 (0-5) /lpf U Epithel Cells (Auto) 5-10 H (0-5) /lpf Urine Bacteria (Auto) Negative (Negative) SARS-CoV-2 (PCR) (Negative) Influenza Type A (PCR) (Neg) Influenza Type B (PCR) (Neg) RSV (RT-PCR) (Neg) Hospital Course (1) Ambulatory dysfunction: (2) HTN (hypertension): (3) DM (diabetes mellitus): (4) GERD (gastroesophageal reflux disease): Randa Cash is a 76-year-old male with a past medical history including hypertension, diabetes mellitus, GERD, RLS, hypertriglyceridemia, TIA, CKD, CAD, status post CABG x3, depression, diaphragmatic paralysis, SNHL of both ears, atrial fibrillation, left-sided weakness post CVA, chronic anticoagulation with Eliquis and generalized weakness. Ambulatory Dysfunction 2/2 Dehydration Patient notes he had several days of poor PO intake for several days leading to worsening weakness. He has had residual left sided lower extremity weakness post-CVA, however has felt more entire body weakness over the past few days. PT/OT evaluated, case management to assist with coordinating outpatient therapy. Patient subjectively feels stronger and more "himself" since eating and drinking adequately. Hypertension (HTN) | Atrial Fibrillation Patient was hypertensive at time of admission and remained elevated to 160s-180s systolic for portion of his admission. He denied any visual changes or headache. Patient states he is adherent to his medication regiment at home, but is unsure of his typical BP reading at home. Patient was discharged on his home Amlodipine and Metoprolol Succinate, but was advised to hold his Lisinopril until this coming December 14. Continue clopidogrel and Eliquis. Acute Kidney Injury Due to poor PO intake for several days, has elevated creatinine to 1.98 (his baseline appears around 1.5-1.6). Patient was rehydrated and encouraged adequate PO intake of fluids daily, at least 60 ounces. Hypokalemia Potassium of 2.9 on admission, patient was treated with K Riders and PO KCl. Encouraged patient to get BMP lab work on Wednesday to recheck creatinine, potassium. Orders placed for outpatient. Hypertriglyceridemia Continue Zetia and fenofibrate RLS Continue ropinirole GERD Continue omeprazole/pantoprazole twice daily Total Time Total Time Spent Total Time Spent (In Minutes): . Discharge Plan Discharge Items Patient Disposition: Home - Self-Care Reason For Visit: GENERALIZED WEAKNESS,HYPOKALEMIA Discharge Diagnosis: Weakness, Dehydration Activity: Per Instructions section Non-emergency contact: Primary Care Provider Call non-emergency contact if: you have any medication questions and your symptoms worsen Follow-up/Referrals: Alejandrina Brooks DO [Primary Care Provider] - (Hospital discharge follow up appointment within 1 week, repeat BMP) Diet: Heart Healthy [facility] Attending Provider Instructions: You were admitted to the hospital for weakness. You were treated with IV fluids and increased your PO intake. A discharge summary will be sent to your primary care physician to ensure continuity of care. Follow-up appointments: Make a follow-up appointment with your PCP within the next week. It is very important that you follow up with them shortly after discharge from the hospital. * You will also need repeat blood work to check your potassium and creatinine. I will order this blood work for you to complete at [facility]. -Case management will contact you to help set up physical therapy, occupational therapy after discharge. Medications: Your medication list has been reviewed and reconciled upon discharge to ensure accuracy and continuity of care. An updated list of all your medications is included with your hospital discharge paperwork. Please review this list closely, and make note of any changes. -Please do not take your Lisinopril until Wednesday. This is because it can be "hard" on your kidneys and in light of your dehydration, it will be best to resume taking the Lisinopril on Wednesday, December 14. Please continue all other medications as you did previously. -Please aim to drink at least 60 ounces of water a day. CALL 911 OR GO TO THE EMERGENCY DEPARTMENT if you experience any of the following: Sudden, severe abdominal pain or nausea/vomiting Severe chest pain, or chest pain that radiates (moves) to your jaw or arm Sudden, severe shortness of breath or difficulty breathing Thank you for allowing us to participate in your care. Pending Studies at Discharge: No Stand-Alone Forms: My [facility], Smoking Cessation Medications and DC Order Prescriptions: Continued ezetimibe 10 mg tablet 10 mg PO QAM fenofibrate nanocrystallized 48 mg tablet 48 mg PO QAM docusate sodium 100 mg Capsule 100 mg PO TID cholecalciferol (vitamin D3) [Vitamin D3] 50 mcg (2,000 unit) Capsule 2,000 unit PO QAM clopidogrel 75 mg Tablet 75 mg PO QAM Qty: 30 0RF vitamin B complex [Vitamins B Complex] Capsule 1 tab PO QAM Qty: 30 0RF ropinirole 0.5 mg tablet 1 mg PO HS omeprazole 20 mg capsule,delayed release(DR/EC) 20 mg PO BID multivitamin with minerals Tablet 1 tab PO DAILY amlodipine 2.5 mg tablet 2.5 mg PO DAILY metoprolol succinate 25 mg Tablet Extended Release 24 Hr 25 mg PO HS ferrous sulfate 325 mg (65 mg iron) Tablet 325 mg PO AMPM Eliquis 5 mg tablet 5 mg PO BID Discontinued lisinopril 10 mg tablet 10 mg PO DAILY Qty: 30 0RF Discharge Orders: Discharge Order (Routine); Ordered 12/10/22 Ordered By: Melania Aquino Admission Data Admit Date/Time: 12/09/22 21:57 Attending Provider: Holger Rowland Admit Provider: Duran Lynch Primary Care Provider: Alejandrina Brooks Other Providers: Duran Lynch Other Interventions: Discharge Summary Assessment (RN) Last Done: 12/10/22 17:37 Supervising Physician Co-Signing Physician Notes I personally examined the patient and verified all morrison points of history and exam, discussed case, and agree with decision making with Dr Aquino feels so much better nwo that he's not dehydrated. walked well with PT, and feels like he could go home. PT notes reviewed as well. Would like to do therapy as an outpatient. Vitals noted, in general he is awake and alert pleasant no distress. Skin without rashes pallor or icterus. Mucous membranes moist. Breathing unlabored no accessory muscle use good effort. Skin shows no rashes no pallor or icterus. Viral illness causing dehydration causing weaknessinitially thought to need rehab. Fortunately doing well and if he is able to go home. Encouraged p.o. fluid intake, asked to track his fluid intake so that he does not fall behind. Safe/stable for home, outpatient therapy. Otherwise as above. Resident Activity Tracking Resident Involvement: Resident Care Provided Care Provided: Adult Hospital Medicine
--- NOTE | 2022-12-10 19:17 | Billing Data ---
Date of Service December 10, 2022 Coding Level of Care Code 04632 IN/OBS DISCH 30 MIN/LESS
[2022-12-10] MEDS ORDERED: rOPINIRole HCL 1 MG TABLET PO SCH (21:00)
[2022-12-10] MEDS ORDERED: METOPROLOL SUCC 25MG EXT REL TAB PO SCH (21:00)
--- NOTE | 2022-12-12 00:03 | Electrocardiogram Report ---
Test Reason : Blood Pressure : / mmHG Vent. Rate : 096 BPM Atrial Rate : 096 BPM P-R Int : 154 ms QRS Dur : 090 ms QT Int : 374 ms P-R-T Axes : 052 -16 085 degrees QTc Int : 472 ms Poor data quality, interpretation may be adversely affected Normal sinus rhythm Possible Left atrial enlargement Borderline ECG When compared with ECG of 27-JUL-2022 08:52, No significant change Confirmed by Kin White ([id number]) on 12/12/2022 12:02:40 AM Referred By: REFERRED SELF Confirmed By:Kin White
== END 2022-12-10 18:43 | disposition home or self-care (01) ==
LOC: 3N 17:18 → ED 17:18 → SUATTDRO 21:57 → 3N 12-10 00:05

== ENCOUNTER 2023-01-16 15:28 | Inpatient (IN) ==
[2023-01-16] MEDS ORDERED: SODIUM CHLORIDE 0.9% 1000ML 1,000 ML IV SCH (16:30)
--- NOTE | 2023-01-16 16:35 | Emergency Department Note ---
Impression & Plan AMS (altered mental status) ED Provider Note HISTORY OF PRESENT ILLNESS: Patient is a 77-year-old male presenting with altered mental status. Daughter helps provide history. Reports that the patient lives home alone and yesterday had an unwitnessed fall around 8:30 AM. She went to check on the patient at 530 and found him laying on the ground naked. He reportedly had been laying on the ground all day because he could not get to his phone. The daughter called 911 yesterday and EMS assisted the patient back up into his chair. He reportedly refused transport to the hospital last night. Daughter reports that the patient was slightly confused last night but she just thought it was secondary to laying on the ground all day. Reports that when she went to check on the patient this morning he was significantly altered. He was speaking nonsensically, which is very abnormal for him. Patient has no complaints on arrival to the emergency department. He reported to the daughter that he was unable to urinate earlier today. Patient denies any pain in the back. Denies any numbness or tingling down his legs. Denies any chest pain or shortness of breath. He is on Eliquis and Plavix. ROS: as above PHYSICAL EXAM: Constitutional: Patient appears in no acute distress. HENT: Head: Normocephalic and atraumatic. Eyes: EOMI, PERRL Mouth/Throat: Mucous membranes moist. Neck: Trachea midline. Neck supple. No midline cervical spine tenderness to palpation Cardiovascular: RRR, No murmurs, rubs or gallops. Intact distal pulses. Pulmonary/Chest: No respiratory distress. Breath sounds clear and equal bilate rally. No wheezes or rales. Abdominal: BS +. Abdomen soft, no tenderness, rebound or guarding. Back: No midline spinal tenderness, no paraspinal tenderness, no CVA tenderness. Musculoskeletal: No edema, tenderness or deformity noted. Skin: Warm and dry. No rash, erythema, pallor or cyanosis Psychiatric: Appropriate mood and affect for situation. Neurological: Alert but confused. He is continually repeating himself he is alert to person and place. He is able to move the bilateral lower extremities spontaneously in the right upper extremity. He has deficits in his left upper extremity from previous stroke MDM: - Vitals signs stable - History obtained via patient and patient's family, given his confusion. Patient presents with altered mental status. Patient had a fall from standing yesterday and laid on the ground for a number of hours before his daughter found him. She reports that the patient refused to come to the hospital last night. However, he has been significantly altered throughout today. Reports that he is normally alert and oriented and able to perform his ADLs without difficulties. Reports that he has been talking nonsensically throughout the morning. Patient denies any complaints on arrival to the emergency department. - Chronic conditions affecting care: CAD; CKD; CVA; HTN; HLD; DM-2 - Differential diagnoses include, but are not limited to: CVA; TIA; intracranial bleed; pneumonia; UTI; rhabdomyolysis - Order placed for continuous cardiac monitoring. At this time, monitor showed rate of 60 bpm with normal sinus rhythm, per my interpretation. - External medical records reviewed. EMS run sheet was reviewed. Patient vitally stable in route. Fingerstick glucose 147 prehospital - EKG reviewed by myself showed normal sinus rhythm. Rate 57 bpm. QTc 449. No acute ischemic changes - Laboratory workup interpreted by myself showed normal WBC; stable electrolytes; normal CK; CKD (Cr 1.75); normal procalcitonin - CT head wo contrast negative for acute intracranial pathology. - CXR negative for pneumonia, per my interpretation. - VBG within normal limits. - UA ordered. - Unclear etiology for patient's confusion at this time. Considered performing a lumbar puncture, but meningitis is less likely given patient's lack of fever and he is moving his head freely without any meningeal findings on physical exam. - Discussed results with the patient and his daughter at bedside. Patient is co ntinuing to be very confused and repetitive. Daughter reports this is not his baseline and does not feel comfortable taking him home. - Discussion was had with social service director about patient's case and need for admission. - Hospitalist, Dr. Giang, consulted for admission. - [facility] ASSESSMENT AND PLAN: Diagnosis: Altered mental status Plan: Admit Past Med/Surg History Medical History (Updated 01/16/23 @ 19:35 by Elissa Henderson MD) Ambulatory dysfunction CAD (coronary artery disease) CHI (closed head injury) CKD (chronic kidney disease) stage 3, GFR 30-59 ml/min CVA (cerebral vascular accident) january 2021 Depression Diaphragmatic paralysis Diarrhea Diarrhea Elevated lipase Fall Fall Generalized weakness GERD (gastroesophageal reflux disease) HTN (hypertension) Hypercholesteremia Hypertriglyceridemia Hypotension Left rib fracture Physical deconditioning Postoperative atrial fibrillation Presence of arterial stent L leg, unable to relate exact location. 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 Resource Forester Required: No Beliefs That Will Affect Care: None marital status: Single Current Living Situation: Alone Current Living Situation Comment: JUST DISCHARGED FROM [facility] TO HOME ALONE current occupational status: retired Feels Safe at Home: Yes Assistive Devices: Walker and Wheelchair Allergies Allergies Allergy/AdvReac Type Severity Reaction Status Date / Time Corticosteroids Allergy Unknown Unknown Verified 01/16/23 19:40 (Glucocorticoids) niacin Allergy Unknown ARTHRALGIAS Verified 01/16/23 19:40 FROM ADVICOR telithromycin Allergy Unknown ARTHRALGIAS Verified 01/16/23 19:40 FROM ADVICOR atorvastatin AdvReac Intermediate Muscle Pain Verified 01/16/23 19:40 lovastatin AdvReac Intermediate ARTHRALGIAS Verified 01/16/23 19:40 FROM ADVICOR Ifireth-YMJ-WvN Reductase AdvReac Intermediate Muscle Pain Verified 01/16/23 19:40 Inhibitor [Nogxxhy-Qcv-Phw Reductase Inhibitor] Home Meds Home Medications Medication Instructions Recorded Confirmed ezetimibe 10 mg tablet 10 mg PO QAM 11/11/19 12/09/22 fenofibrate nanocrystallized 48 mg 48 mg PO QAM 11/27/20 12/09/22 tablet apixaban 5 mg tablet (Eliquis) 5 mg PO BID 01/17/21 12/09/22 ferrous sulfate 325 mg (65 mg 325 mg PO AMPM 01/17/21 12/09/22 iron) tablet cholecalciferol (vitamin D3) 50 2,000 unit PO QAM 01/27/21 12/09/22 mcg (2,000 unit) capsule (Vitamin D3) docusate sodium 100 mg capsule 100 mg PO TID 01/27/21 12/09/22 multivitamin with minerals 1 tab PO DAILY 03/16/21 12/09/22 omeprazole 20 mg capsule,delayed 20 mg PO BID 03/16/21 12/09/22 release ropinirole 0.5 mg tablet 1 mg PO HS 07/22/21 12/09/22 amlodipine 2.5 mg tablet 2.5 mg PO DAILY 12/09/22 12/09/22 metoprolol succinate 25 mg 25 mg PO HS 12/09/22 12/09/22 tablet,extended release 24 hr Previous Rx's Medication Instructions Recorded clopidogrel 75 mg tablet 75 mg PO QAM #30 tabs 01/29/21 vitamin B complex (Vitamins B 1 tab PO QAM #30 caps 01/30/21 Complex capsule) Results & Data (ED) Vital Signs Vital Signs - 24 hr 01/16/23 15:52 01/16/23 15:47 01/16/23 16:00 Temperature 36.5 C Temperature Source Oral Pulse Rate 59 L 61 59 L Pulse Rate from SpO2 Sensor 62 Respiratory Rate 18 18 Respiratory Depth Normal Blood Pressure 125/66 119/65 Blood Pressure Mean 85 83 Pulse Oximetry 96 94 Oxygen Delivery Method Room Air Room Air Sepsis Recent Fever Within 48 Hours No Sepsis New/Unexplained Change in Mental Status No Sepsis Action Taken by Nursing No Action Required 01/16/23 16:31 01/16/23 17:27 01/16/23 17:30 Temperature Temperature Source Pulse Rate 58 L 55 L 53 L Pulse Rate from SpO2 Sensor 57 L 56 L 53 L Respiratory Rate 19 22 24 Respiratory Depth Blood Pressure 112/79 142/75 H 128/66 Blood Pressure Mean 90 97 86 Pulse Oximetry 95 98 98 Oxygen Delivery Method Room Air Room Air Room Air Sepsis Recent Fever Within 48 Hours Sepsis New/Unexplained Change in Mental Status Sepsis Action Taken by Nursing 01/16/23 18:00 01/16/23 18:30 01/16/23 19:05 Temperature Temperature Source Pulse Rate 58 L 56 L Pulse Rate from SpO2 Sensor 60 58 L Respiratory Rate 24 27 H Respiratory Depth Blood Pressure 153/72 H 157/69 H 146/68 H Blood Pressure Mean 99 98 94 Pulse Oximetry 97 95 Oxygen Delivery Method Room Air Room Air Sepsis Recent Fever Within 48 Hours Sepsis New/Unexplained Change in Mental Status Sepsis Action Taken by Nursing Laboratory Data 01/16/23 16:08 01/16/23 16:08 Lab Results 01/16/23 01/16/23 01/16/23 Range/Units 16:08 16:08 16:08 WBC 9.39 (4.8-10.8) K/ul RBC 4.85 (4.70-6.10) M/uL Hgb 14.6 (14.0-18.0) g/dl Hct 43.4 (42.0-52.0) % MCV 89.5 (80.0-100.0) fL MCH 30.1 (25.0-34.0) pg MCHC 33.6 (32.0-36.0) g/dL RDW Std Deviation 42.5 (36.4-46.3) fL RDW Coeff of Brice 13.0 (11.5-14.5) % Plt Count 185 (130-400) K/uL MPV 11.6 (9.4-12.4) fL Immature Gran % (Auto) 0.3 % Neut % (Auto) 79.5 % Lymph % (Auto) 13.2 % [place] % (Auto) 6.3 % Eos % (Auto) 0.3 % Baso % (Auto) 0.4 % Neut # (Auto) 7.46 H (1.40-6.50) K/uL Lymph # (Auto) 1.24 (1.2-3.4) K/uL [place] # (Auto) 0.59 (0.11-0.59) K/uL Eos # (Auto) 0.03 (0-0.50) K/uL Baso # (Auto) 0.04 (0-0.2) K/uL Immature Gran # (Auto) 0.03 (0.01-0.20) K/uL PT (9.0-12.0) Seconds INR (0.9-1.1) VBG pH (7.36-7.41) VBG pCO2 (38-50) mmHg VBG pO2 mmHg VBG HCO3 mmol/L VBG O2 Saturation % VBG Base Excess mEq/L Sodium 138 (136-145) mmol/L Potassium 3.9 (3.5-5.1) mmol/L Chloride 104 (98-107) mmol/L Carbon Dioxide 24 (21-32) mmol/L Anion Gap 10 (3-11) BUN 22 (6-23) mg/dl Creatinine 1.75 H (0.6-1.4) mg/dl Est Cr Clr Drug Dosing 33.1 ml/min Est GFR ( Amer) 42.6 ml/min Est GFR (Non-Af Amer) 36.7 ml/min BUN/Creatinine Ratio 12.6 (10-20) Glucose 123 H (70-99(Fasting)) mg/dl Lactate (0.4-2.0) mmol/L Calcium 9.3 (8.6-10.3) mg/dl Magnesium 1.8 (1.7-2.4) mg/dl Total Bilirubin 0.7 (0.2-1.0) mg/dl Direct Bilirubin 0.1 (0-0.2) mg/dl AST 44 H (13-39) U/L ALT 30 (7-52) U/L Alkaline Phosphatase 72 (34-104) U/L Total Creatine Kinase 191 (30-223) U/L Troponin I High Sens 12.5 (0-20) pg/ml Total Protein 6.6 (6.0-8.3) gm/dl Albumin 3.9 (3.4-5.0) gm/dl Procalcitonin 0.08 (0-0.5) ng/ml 01/16/23 01/16/23 01/16/23 Range/Units 16:08 17:27 17:27 WBC (4.8-10.8) K/ul RBC (4.70-6.10) M/uL Hgb (14.0-18.0) g/dl Hct (42.0-52.0) % MCV (80.0-100.0) fL MCH (25.0-34.0) pg MCHC (32.0-36.0) g/dL RDW Std Deviation (36.4-46.3) fL RDW Coeff of Brice (11.5-14.5) % Plt Count (130-400) K/uL MPV (9.4-12.4) fL Immature Gran % (Auto) % Neut % (Auto) % Lymph % (Auto) % [place] % (Auto) % Eos % (Auto) % Baso % (Auto) % Neut # (Auto) (1.40-6.50) K/uL Lymph # (Auto) (1.2-3.4) K/uL [place] # (Auto) (0.11-0.59) K/uL Eos # (Auto) (0-0.50) K/uL Baso # (Auto) (0-0.2) K/uL Immature Gran # (Auto) (0.01-0.20) K/uL PT 11.8 (9.0-12.0) Seconds INR 1.1 (0.9-1.1) VBG pH 7.38 (7.36-7.41) VBG pCO2 47 (38-50) mmHg VBG pO2 25 mmHg VBG HCO3 28 mmol/L VBG O2 Saturation < 60.0 % VBG Base Excess 2.0 mEq/L Sodium (136-145) mmol/L Potassium (3.5-5.1) mmol/L Chloride (98-107) mmol/L Carbon Dioxide (21-32) mmol/L Anion Gap (3-11) BUN (6-23) mg/dl Creatinine (0.6-1.4) mg/dl Est Cr Clr Drug Dosing ml/min Est GFR ( Amer) ml/min Est GFR (Non-Af Amer) ml/min BUN/Creatinine Ratio (10-20) Glucose (70-99(Fasting)) mg/dl Lactate 1.3 (0.4-2.0) mmol/L Calcium (8.6-10.3) mg/dl Magnesium (1.7-2.4) mg/dl Total Bilirubin (0.2-1.0) mg/dl Direct Bilirubin (0-0.2) mg/dl AST (13-39) U/L ALT (7-52) U/L Alkaline Phosphatase (34-104) U/L Total Creatine Kinase (30-223) U/L Troponin I High Sens (0-20) pg/ml Total Protein (6.0-8.3) gm/dl Albumin (3.4-5.0) gm/dl Procalcitonin (0-0.5) ng/ml Administered Medications Discontinued Medications Sodium Chloride (Nss 1000ml) 1,000 mls @ 999 mls/hr IV .Q1H1M RUPINDER Stop: 01/16/23 17:30 Last Admin: 01/16/23 17:28 Dose: 999 mls/hr Documented By: [facility] Imaging Data Radiologist's Impression: Chest X-Ray 01/16/23 16:28 XR chest 1V portable HISTORY: 77 years-old Male Sepsis acute sepsis COMPARISON: 12/09/2022 TECHNIQUE: AP view of the chest FINDINGS: Cardiac silhouette is enlarged. Prior median sternotomy with CABG. No pneumothorax, pleural effusion, airspace consolidation or pulmonary edema. Calcified granuloma of the left upper lung. Degenerative changes of the shoulders and spine. IMPRESSION: No acute process. ACT 112: Negative or not required by law. The above report was generated using voice recognition software. It may contain grammatical, syntax or spelling errors. Electronically signed by: Edmar Whipple M.D. 01/16/2023 6:[address] 01/16/23 16:28 CT head/brain wo con CLINICAL HISTORY: 77 years-old Male with confusion. Acutely altered mental status TECHNIQUE: Multiple axial CT images of the head were obtained without contrast. A dose lowering technique was utilized adhering to the principles of ALARA. CT DOSE: 537.48 mGy.cm COMPARISON: 12/09/2022 FINDINGS: No acute intracranial hemorrhage, midline shift, intracranial mass, hydrocephalus, territorial ischemia or abnormal extra-axial collection. Involutional changes with chronic microvascular ischemic disease. Unchanged appearance of the scattered chronic lacunar infarcts. Cerebral vascular calcifications. The calvarium is intact. The paranasal sinuses, mastoid air cells, and middle ear cavities are clear. IMPRESSION: No acute intracranial abnormality. ACT 112: Negative or not required by law. The above report was generated using voice recognition software. It may contain grammatical, syntax or spelling errors. Electronically signed by: Edmar Whipple M.D. 01/16/2023 5:09 PM Discharge Plan Visit Data Chief Complaint: Illness Stated Complaint: ILLNESS ED Provider: Elissa Henderson Discharge Problem: AMS (altered mental status) Forms Stand Alone Forms: My [facility] Prescriptions Prescriptions: No Action ezetimibe 10 mg tablet 10 mg PO QAM fenofibrate nanocrystallized 48 mg tablet 48 mg PO QAM docusate sodium 100 mg Capsule 100 mg PO TID cholecalciferol (vitamin D3) [Vitamin D3] 50 mcg (2,000 unit) Capsule 2,000 unit PO QAM clopidogrel 75 mg Tablet 75 mg PO QAM Qty: 30 0RF vitamin B complex [Vitamins B Complex] Capsule 1 tab PO QAM Qty: 30 0RF ropinirole 0.5 mg tablet 1 mg PO HS omeprazole 20 mg capsule,delayed release(DR/EC) 20 mg PO BID multivitamin with minerals Tablet 1 tab PO DAILY amlodipine 2.5 mg tablet 2.5 mg PO DAILY metoprolol succinate 25 mg Tablet Extended Release 24 Hr 25 mg PO HS ferrous sulfate 325 mg (65 mg iron) Tablet 325 mg PO AMPM Eliquis 5 mg tablet 5 mg PO BID Referrals Referrals: Alejandrina Brooks DO [Primary Care Provider] -
[2023-01-16 17:10] LABS: Basophils # (auto) 0.04 K/uL (0-0.2); Basophils % (auto) 0.4 %; Eosinophils # (auto) 0.03 K/uL (0-0.50); Eosinophils % (auto) 0.3 %; Hematocrit (blood only) 43.4 % (42.0-52.0); Hemoglobin 14.6 g/dl (14.0-18.0); Immature Granulocytes # (auto) 0.03 K/uL (0.01-0.20); Immature Granulocytes % (auto) 0.3 %; Lymphocytes # (auto) 1.24 K/uL (1.2-3.4); Lymphocytes % (auto) 13.2 %; Mean Corpuscular Hemoglobin 30.1 pg (25.0-34.0); Mean Corpuscular Hgb Conc 33.6 g/dL (32.0-36.0); Mean Corpuscular Volume 89.5 fL (80.0-100.0); Mean Platelet Volume 11.6 fL (9.4-12.4); Monocytes # (auto) 0.59 K/uL (0.11-0.59); Monocytes % (auto) 6.3 %; Neutrophils # (auto) 7.46 K/uL (1.40-6.50); Neutrophils % (auto) 79.5 %; Platelet Count 185 K/uL (130-400); RDW Standard Deviation 42.5 fL (36.4-46.3); Red Blood Count 4.85 M/uL (4.70-6.10); White Blood Count 9.39 K/ul (4.8-10.8)
--- NOTE | 2023-01-16 17:10 | CT Scan Report ---
CT head/brain wo con CLINICAL HISTORY: 77 years-old Male with confusion. Acutely altered mental status TECHNIQUE: Multiple axial CT images of the head were obtained without contrast. A dose lowering tech nique was utilized adhering to the principles of ALARA. CT DOSE: 537.48 mGy.cm COMPARISON: 12/09/2022 FINDINGS: No acute intracranial hemorrhage, midline shift, intracranial mass, hydrocephalus, territorial ischem ia or abnormal extra-axial collection. Involutional changes with chronic microvascular ischemic disea se. Unchanged appearance of the scattered chronic lacunar infarcts. Cerebral vascular calcifications. The calvarium is intact. The paranasal sinuses, mastoid air cells, and middle ear cavities are clear . IMPRESSION: No acute intracranial abnormality. ACT 112: Negative or not required by law. The above report was generated using voice recognition software. It may contain grammatical, syntax o r spelling errors. Electronically signed by: Edmar Whipple M.D. 01/16/2023 5:09 PM
[2023-01-16 17:26] LABS: Albumin Level 3.9 gm/dl (3.4-5.0); BUN Creatinine Ratio 12.6 (10-20); Bilirubin Direct 0.1 mg/dl (0-0.2); Bilirubin,Total 0.7 mg/dl (0.2-1.0); Calcium 9.3 mg/dl (8.6-10.3); Creatinine Clr Calc Pharmacy 33.1 ml/min; Est GFR (African American) 42.6 ml/min; Est GFR (Non-African American) 36.7 ml/min; Magnesium 1.8 mg/dl (1.7-2.4); Potassium 3.9 mmol/L (3.5-5.1); Total Protein 6.6 gm/dl (6.0-8.3)
[2023-01-16 17:32] LABS: Troponin I High Sensitivity 12.5 pg/ml (0-20)
[2023-01-16 17:34] LABS: INR 1.1 (0.9-1.1); Prothrombin Time 11.8 Seconds (9.0-12.0)
[2023-01-16 17:41] LABS: HCO3 VBG 28 mmol/L; Oxygen Saturation VBG < 60.0 %; PCO2 VBG 47 mmHg (38-50); PO2 VBG 25 mmHg; pH VBG 7.38 (7.36-7.41)
--- NOTE | 2023-01-16 18:40 | XRay Report ---
XR chest 1V portable HISTORY: 77 years-old Male Sepsis acute sepsis COMPARISON: 12/09/2022 TECHNIQUE: AP view of the chest FINDINGS: Cardiac silhouette is enlarged. Prior median sternotomy with CABG. No pneumothorax, pleural effusion, airspace consolidation or pulmonary edema. Calcified granuloma of the left upper lung. Degenerative changes of the shoulders and spine. IMPRESSION: No acute process. ACT 112: Negative or not required by law. The above report was generated using voice recognition software. It may contain grammatical, syntax o r spelling errors. Electronically signed by: Edmar Whipple M.D. 01/16/2023 6:38 PM
--- NOTE | 2023-01-16 20:11 | History & Physical Report ---
Date of Service January 16, 2023 Assessment & Plan (1) AMS (altered mental status): Plan: 77yo male presenting after being found down at home (likely down time of 9 hours), ongoing confusion - forgetful with poor memory. Workup thus far with normal CBC, VBG and chemistry revealing CKD near baseline. Mild elevation of AST=44. Normal procalcitonin and troponin. Normal RX=263. UA not suggestive of infection. CT head with no acute abnormality. Etiology unclear. ?TIA/CVA, doubt infection -Admit to medical with telemetry -Neuro checks for CVA and GCS q 4 hours -Check CTA Head and Neck -Check MRI Brain -Check 2D echo -Check Lipid panel an A1C -Check TSH and Ammonia level -PT/OT evaluation (2) HTN (hypertension): Plan: Blood pressure well controlled - presently 104/58 -Hold antihypertensives for now - Amlodipine, Lisinopril and Metoprolol -Continue to monitor blood pressure (3) GERD (gastroesophageal reflux disease): Plan: Chronic. Stable -Protonix 40mg po BID while inpatient. Patient is on BID Omeprazole (4) Restless leg syndrome: Plan: Chronic. Patient with no complaints -Continue Ropinirole 0.5mg po daily (5) CKD (chronic kidney disease) stage 3, GFR 30-59 ml/min: Plan: BUN and Cr near baseline -Continue to monitor renal function -Avoid nephrotoxic agents -Repeat chemistry in AM (6) CAD (coronary artery disease): Plan: -Continue Plavix 75mg po daily -Continue Zetia - patient is statin intolerant (7) Atrial fibrillation: Plan: Presently in sinus rhythm -Holding Metoprolol -Hold Eliquis as stroke workup is completed (8) DM (diabetes mellitus): Plan: Diet controlled. Last HgbA1C on 01/17/21 = 6.8 -Monitor blood sugars F/E/N - LR at 125mL/hr x 1L, electrolytes WNL, CC/AHA diet as tolerated Ppx - SCDs Code - Full per discussion with patient Dispo - Admit to medical with telemetry History of Present Illness Chief Complaint: confusion Primary Care Provider: DO Shailesh Muñoz Marisela is a pleasant 77yo male with multiple medical problems to include CAD, CKD, prior CVA with left sided hemiplegia, HTN, HLP and DM presenting from home after being found down. Patient is more confused than normal, repeating himself, forgetful and using inappropriate words during the conversation. He was able to provide some history, but was unclear of events preceding arrival. Collateral history obtained from patient's daughter - Katharina Oneil [phone] Patient's daughter found patient down on the floor this afternoon around 17:30. He was naked and confused. He reports that he thinks that he fell around 08:30 (at later times he denies falling). He is uncertain if he lost consciousness. EMS was called and helped the patient get up and brought him to [facility] ER. In the ER he is noted to be confused. He is repeating himself and using inappropriate words. He becomes tearful and emotional at times stating "I just don't know what's going on". Daughter mentioned that he reported some dizziness and a headache as well. Patient with prior CVA with left sided hemiparesis. He ambulates with a walker and has a motorized chair. He lives alone. He has family living locally that helps him manage his medications. His daughter does report that he is non- compliant with his medications. He has some home nursing support. Daughter reports more frequent falls at home as well as some increased forgetfulness. In the ER he is afebrile, HD stable. He denies fever, chills, chest pain, cough, SOB. Denies headache, visual changes, abdominal pain, nausea, vomiting, diarrhea or constipation. Denies focal numbness or weakness. No additional complaints. ER Course: NSS x 1L Allergies Allergy/AdvReac Type Severity Reaction Status Date / Time Corticosteroids Allergy Unknown Unknown Verified 01/16/23 19:40 (Glucocorticoids) niacin Allergy Unknown ARTHRALGIAS Verified 01/16/23 19:40 FROM ADVICOR telithromycin Allergy Unknown ARTHRALGIAS Verified 01/16/23 19:40 FROM ADVICOR atorvastatin AdvReac Intermediate Muscle Pain Verified 01/16/23 19:40 lovastatin AdvReac Intermediate ARTHRALGIAS Verified 01/16/23 19:40 FROM ADVICOR Woqzwhg-BOE-PfT Reductase AdvReac Intermediate Muscle Pain Verified 01/16/23 19:40 Inhibitor [Rfkosak-Uct-Xbs Reductase Inhibitor] Home Medications Medication Instructions Recorded Confirmed Type ezetimibe 10 mg tablet 10 mg PO QAM 11/11/19 01/16/23 History apixaban 5 mg tablet (Eliquis) 5 mg PO BID 01/17/21 01/16/23 History clopidogrel 75 mg tablet 75 mg PO QAM #30 tabs 01/29/21 01/16/23 Rx multivitamin with minerals 1 tab PO DAILY 03/16/21 01/16/23 History omeprazole 20 mg capsule,delayed 20 mg PO BID 03/16/21 01/16/23 History release amlodipine 2.5 mg tablet 2.5 mg PO DAILY 12/09/22 01/16/23 History metoprolol succinate 25 mg 25 mg PO BID 12/09/22 01/16/23 History tablet,extended release 24 hr baclofen 20 mg tablet 20 mg PO TID PRN Cramps 01/16/23 01/16/23 History lisinopril 10 mg tablet 10 mg PO DAILY 01/16/23 01/16/23 History ropinirole 0.5 mg tablet 0.5 mg PO DAILY 01/16/23 01/16/23 History tamsulosin 0.4 mg capsule 0.4 mg PO DAILY 01/16/23 01/16/23 History Past Med/Surg History Medical History (Updated 01/16/23 @ 21:50 by Kim Giang DO) Ambulatory dysfunction CAD (coronary artery disease) CHI (closed head injury) CKD (chronic kidney disease) stage 3, GFR 30-59 ml/min CVA (cerebral vascular accident) january 2021 Depression Diaphragmatic paralysis Diarrhea Elevated lipase Fall Generalized weakness GERD (gastroesophageal reflux disease) HTN (hypertension) Hypercholesteremia Hypertriglyceridemia Hypotension Left rib fracture Physical deconditioning Postoperative atrial fibrillation Presence of arterial stent L leg, unable to relate exact location. Pressure ulcer of right buttock Restless leg syndrome Stroke TIA (transient ischemic attack) Type II diabetes mellitus Surgical History H/O knee surgery stent behind left knee 2017 H/O vasectomy History of angioplasty of peripheral vessel LLE angiogram with NET ARCHITECT popliteal 05/23/2018 Hx of colonoscopy 2017 S/P CABG x 3 Family History Grandfather Colorectal cancer Mother Diabetes Hypertension Brother Stroke Social History Smoking Status: Former smoker Tobacco Type: Cigarettes Second Hand Exposure: No; Hx Alcohol Use: Yes Alcohol type: beer Hx Substance Use: No Preferred Language: Estonian Communication Ability: Effective Communication Ability Comment: Aphasia. Hammerer Helper Required: No Beliefs That Will Affect Care: None marital status: Single Current Living Situation: Alone Current Living Situation Comment: JUST DISCHARGED FROM [facility] TO HOME ALONE current occupational status: retired Feels Safe at Home: Yes Assistive Devices: Walker and Wheelchair Review of Systems Review of Systems: All systems reviewed & are unremarkable except as noted in HPI & below Physical Exam Physical Exam: General: patient resting comfortably, NAD, non-toxic in appearance, AA&O to self and location Skin: warm, dry, intact, no rashes or lesions HEENT: NC/AT, PERRL, EOMI, anicteric sclera, conjunctiva without injection, external ear normal to inspection and nontender, nares patent, moist mucus membranes, dentition intact, no oropharyngeal lesions, neck supple, trachea midline, no LAD, no thyromegaly, no JVD Heart: +S1/S2, regular, no m/r/g Lungs: equal air entry bilaterally, no rales/rhonchi/wheezes Abd: +BS, soft, NT/ND, no masses/organomegaly/ascites Ext: warm, 2+ pulses in UE/LE bilaterally, no clubbing/cyanosis or edema Neuro: AA&O to self and hospital, speech is cleared with some word finding difficulty and inappropriate word choice at time - "I was told I have to stay in the doctor" rather than "hospital". Chronic hemiparesis LUE/LLE. Strength in RUE intact 5/5. Sensation intact. CN II-XII intact Results & Data Results & Data Vital Signs (Past 12 Hours) Vital Signs Temp Pulse Resp BP Pulse Ox O2 Del Method 01/16/23 19:05 146/68 H 01/16/23 18:30 56 L 27 H 157/69 H 95 Room Air 01/16/23 18:00 58 L 24 153/72 H 97 Room Air 01/16/23 17:30 53 L 24 128/66 98 Room Air 01/16/23 17:27 55 L 22 142/75 H 98 Room Air 01/16/23 16:31 58 L 19 112/79 95 Room Air 01/16/23 16:00 59 L 18 119/65 94 Room Air 01/16/23 15:47 61 01/16/23 15:52 36.5 C 59 L 18 125/66 96 Room Air Laboratory Results Laboratory Results WBC 9.39 K/ul (4.8-10.8) 01/16/23 16:08 RBC 4.85 M/uL (4.70-6.10) 01/16/23 16:08 Hgb 14.6 g/dl (14.0-18.0) 01/16/23 16:08 Hct 43.4 % (42.0-52.0) 01/16/23 16:08 MCV 89.5 fL (80.0-100.0) 01/16/23 16:08 MCH 30.1 pg (25.0-34.0) 01/16/23 16:08 MCHC 33.6 g/dL (32.0-36.0) 01/16/23 16:08 RDW Std Deviation 42.5 fL (36.4-46.3) 01/16/23 16:08 RDW Coeff of Brice 13.0 % (11.5-14.5) 01/16/23 16:08 Plt Count 185 K/uL (130-400) 01/16/23 16:08 MPV 11.6 fL (9.4-12.4) 01/16/23 16:08 Immature Gran % (Auto) 0.3 % 01/16/23 16:08 Neut % (Auto) 79.5 % 01/16/23 16:08 Lymph % (Auto) 13.2 % 01/16/23 16:08 [place] % (Auto) 6.3 % 01/16/23 16:08 Eos % (Auto) 0.3 % 01/16/23 16:08 Baso % (Auto) 0.4 % 01/16/23 16:08 Neut # (Auto) 7.46 K/uL (1.40-6.50) H 01/16/23 16:08 Lymph # (Auto) 1.24 K/uL (1.2-3.4) 01/16/23 16:08 [place] # (Auto) 0.59 K/uL (0.11-0.59) 01/16/23 16:08 Eos # (Auto) 0.03 K/uL (0-0.50) 01/16/23 16:08 Baso # (Auto) 0.04 K/uL (0-0.2) 01/16/23 16:08 Immature Gran # (Auto) 0.03 K/uL (0.01-0.20) 01/16/23 16:08 PT 11.8 Seconds (9.0-12.0) 01/16/23 16:08 INR 1.1 (0.9-1.1) 01/16/23 16:08 VBG pH 7.38 (7.36-7.41) 01/16/23 17: VBG pCO2 47 mmHg (38-50) 01/16/23 17: VBG pO2 25 mmHg 01/16/23 17: VBG HCO3 28 mmol/L 01/16/23 17:27 VBG O2 Saturation < 60.0 % 01/16/23 17:27 VBG Base Excess 2.0 mEq/L 01/16/23 17: Sodium 138 mmol/L (136-145) 01/16/23 16:08 Potassium 3.9 mmol/L (3.5-5.1) 01/16/23 16:08 Chloride 104 mmol/L (98-107) 01/16/23 16:08 Carbon Dioxide 24 mmol/L (21-32) 01/16/23 16:08 Anion Gap 10 (3-11) 01/16/23 16:08 BUN 22 mg/dl (6-23) 01/16/23 16:08 Creatinine 1.75 mg/dl (0.6-1.4) H 01/16/23 16:08 Est Cr Clr Drug Dosing 33.1 ml/min 01/16/23 16:08 Est GFR ( Amer) 42.6 ml/min 01/16/23 16:08 Est GFR (Non-Af Amer) 36.7 ml/min 01/16/23 16:08 BUN/Creatinine Ratio 12.6 (10-20) 01/16/23 16:08 Glucose 123 mg/dl (70-99(Fasting)) H 01/16/23 16:08 Lactate 1.3 mmol/L (0.4-2.0) 01/16/23 17:27 Calcium 9.3 mg/dl (8.6-10.3) 01/16/23 16:08 Magnesium 1.8 mg/dl (1.7-2.4) 01/16/23 16:08 Total Bilirubin 0.7 mg/dl (0.2-1.0) 01/16/23 16:08 Direct Bilirubin 0.1 mg/dl (0-0.2) 01/16/23 16:08 AST 44 U/L (13-39) H 01/16/23 16:08 ALT 30 U/L (7-52) 01/16/23 16:08 Alkaline Phosphatase 72 U/L (34-104) 01/16/23 16:08 Total Creatine Kinase 191 U/L (30-223) 01/16/23 16:08 Troponin I High Sens 12.5 pg/ml (0-20) 01/16/23 16:08 Total Protein 6.6 gm/dl (6.0-8.3) 01/16/23 16:08 Albumin 3.9 gm/dl (3.4-5.0) 01/16/23 16:08 Procalcitonin 0.08 ng/ml (0-0.5) 01/16/23 16:08 Urine Color Yellow 01/16/23 20:26 Urine Appearance Clear (Clear) 01/16/23 20: Urine pH 5.0 (4.5-7.5) 01/16/23 20:26 Ur Specific [place] 1.015 (1.000-1.030) 01/16/23 20:26 Urine Protein Trace (Negative) H 01/16/23 20:26 Urine Glucose (UA) Negative (Negative) 01/16/23 20:26 Urine Ketones Negative (Negative) 01/16/23 20:26 Urine Blood Negative (Negative) 01/16/23 20:26 Urine Nitrite Negative (Negative) 01/16/23 20:26 Urine Bilirubin Negative (Negative) 01/16/23 20: Urine Urobilinogen Negative (Negative) 01/16/23 20:26 Ur Leukocyte Esterase Negative (Negative) 01/16/23 20:26 Urine WBC (Auto) 1-5 /hpf (0-5) 01/16/23 20:26 Urine RBC (Auto) 0-4 /hpf (0-4) 04/22/23 20:26 U Hyaline Cast (Auto) 1-5 /lpf (0-5) 01/16/23 20:26 U Epithel Cells (Auto) 5-10 /lpf (0-5) H 01/16/23 20:26 Urine Bacteria (Auto) Negative (Negative) 01/16/23 20:26 SARS-CoV-2, RNA, NAAT NEGATIVE (NEGATIVE) 01/16/23 20:26 Impressions Chest X-Ray 01/16/23 16:28 XR chest 1V portable HISTORY: 77 years-old Male Sepsis acute sepsis COMPARISON: 12/09/2022 TECHNIQUE: AP view of the chest FINDINGS: Cardiac silhouette is enlarged. Prior median sternotomy with CABG. No pneumothorax, pleural effusion, airspace consolidation or pulmonary edema. Calcified granuloma of the left upper lung. Degenerative changes of the shoulders and spine. IMPRESSION: No acute process. ACT 112: Negative or not required by law. The above report was generated using voice recognition software. It may contain grammatical, syntax or spelling errors. Electronically signed by: Edmar Whipple M.D. 01/16/2023 6:[address] 01/16/23 16:28 CT head/brain wo con CLINICAL HISTORY: 77 years-old Male with confusion. Acutely altered mental status TECHNIQUE: Multiple axial CT images of the head were obtained without contrast. A dose lowering technique was utilized adhering to the principles of ALARA. CT DOSE: 537.48 mGy.cm COMPARISON: 12/09/2022 FINDINGS: No acute intracranial hemorrhage, midline shift, intracranial mass, hydrocephalus, territorial ischemia or abnormal extra-axial collection. Involutional changes with chronic microvascular ischemic disease. Unchanged appearance of the scattered chronic lacunar infarcts. Cerebral vascular calcifications. The calvarium is intact. The paranasal sinuses, mastoid air cells, and middle ear cavities are clear. IMPRESSION: No acute intracranial abnormality. ACT 112: Negative or not required by law. The above report was generated using voice recognition software. It may contain grammatical, syntax or spelling errors. Electronically signed by: Edmar Whipple M.D. 01/16/2023 5:09 PM Code Status & VTE Plan VTE Prophylaxis Plan VTE Prophylaxis will be ordered: Yes PG Care Time/CCT Total # of Minutes Spent Total Time Spent with Patient: Total time spent is greater than 50% in coordination of care (as documented) at patient's floor/unit and/or counseling patient: Coding Level of Care Code 00104 INT INP/OBS CARE 75MIN Diagnoses AMS (altered mental status) R41.82 HTN (hypertension) I10 Hypertension type: essential hypertension GERD (gastroesophageal reflux disease) K21.9 Esophagitis presence: esophagitis presence not specified Restless leg syndrome G25.81 CKD (chronic kidney disease) stage 3, GFR 30-59 ml/min N18.30 CAD (coronary artery disease) I25.110 Associated angina: with unstable angina Coronary Disease-Associated Artery/Lesion type: [place] artery [place] vs. transplanted heart: [place] heart Atrial fibrillation I48.0 Atrial fibrillation type: paroxysmal DM (diabetes mellitus) E11.9 Diabetes mellitus type: type 2 Diabetes mellitus skilled nursing insulin use: without skilled nursing use Diabetes mellitus complication status: without complication (2) HTN (hypertension) Hypertension type: essential hypertension Qualified Code(s): I10 - Essential (primary) hypertension (3) GERD (gastroesophageal reflux disease) Esophagitis presence: esophagitis presence not specified Qualified Code(s): K21.9 - Gastro-esophageal reflux disease without esophagitis (6) CAD (coronary artery disease) Associated angina: with unstable angina Coronary Disease-Associated Artery/Lesion type: [place] artery [place] vs. transplanted heart: [place] heart Qualified Code(s): I25.110 - Atherosclerotic heart disease of [place] coronary artery with unstable angina pectoris (7) Atrial fibrillation Atrial fibrillation type: paroxysmal Qualified Code(s): I48.0 - Paroxysmal atrial fibrillation (8) DM (diabetes mellitus) Diabetes mellitus type: type 2 Diabetes mellitus skilled nursing insulin use: without skilled nursing use Diabetes mellitus complication status: without complication Qualified Code(s): E11.9 - Type 2 diabetes mellitus without complications
[2023-01-16 20:47] LABS: Appearance Urine Clear (Clear); Bacteria Urine Automated Negative (Negative); Bilirubin Urine Negative (Negative); Blood Urine Negative (Negative); Color Urine Yellow; Glucose Urine UA Negative (Negative); Ketones Urine Negative (Negative); Leukocyte Esterase Urine Negative (Negative); Nitrite Urine Negative (Negative); Protein Urine Trace (Negative); RBC Urine Automated 0-4 /hpf (0-4); Specific Gravity Urine 1.015 (1.000-1.030); Urobilinogen Urine Negative (Negative)
[2023-01-16] MEDS ORDERED: ASPIRIN 81 MG ECTAB PO STA (21:49)
[2023-01-16] MEDS ORDERED: ACETAMINOPHEN 325 MG TAB PO PRN (22:08)
[2023-01-16] MEDS ORDERED: LACTATED RINGER'S 1,000 ML IV SCH (22:15)
[2023-01-16] MEDS: rOPINIRole HCL 0.25 MG TABLET PO SCH (22:54)
[2023-01-16] MEDS: PANTOprazole 40 MG TAB PO SCH (22:55)
[2023-01-16] MEDS ORDERED: OPTIRAY 320 500ml IV ONE (23:58)
--- NOTE | 2023-01-17 00:21 | CT Scan Report ---
Exam(s): CTA HEAD With Contrast IV Amt: 112 ML EXAM: CT Angiography Head With Intravenous Contrast CLINICAL HISTORY: Reason for exam: AMS, word finding difficulty. TECHNIQUE: Axial computed tomographic angiography images of the head with intravenous contrast. CTDI is 29.7 mGy and DLP is 14.85 mGy-cm. Automated exposure control was utilized for the study. A dose lowering technique was utilized adhering to the principles of ALARA. MIP reconstructed images were created and reviewed. CONTRAST: Patient received 112 ML of IV contrast COMPARISON: Dated 07/27/22 FINDINGS: Right internal carotid artery: No acute findings. Intracranial segment is patent with no significant stenosis. No aneurysm. Right anterior cerebral artery: Unremarkable. No occlusion or significant stenosis. No aneurysm. Right middle cerebral artery: Unremarkable. No occlusion or significant stenosis. No aneurysm. Right posterior cerebral artery: Unremarkable. No occlusion or significant stenosis. No aneurysm. Right vertebral artery: Unremarkable as visualized. Left internal carotid artery: No acute findings. Intracranial segment is patent with no significant stenosis. No aneurysm. Left anterior cerebral artery: Unremarkable. No occlusion or significant stenosis. No aneurysm. Left middle cerebral artery: Unremarkable. No occlusion or significant stenosis. No aneurysm. Left posterior cerebral artery: Unremarkable. No occlusion or significant stenosis. No aneurysm. Left vertebral artery: Unremarkable as visualized. Basilar artery: Unremarkable. No occlusion or significant stenosis. No aneurysm. Other vasculature: There is scattered atherosclerotic disease. IMPRESSION: No acute findings in the arteries of the head/brain. Electronically signed by: Rah Webb MD 01/17/23 00:20 AM
--- NOTE | 2023-01-17 00:23 | CT Scan Report ---
Exam(s): CTA NECK With Contrast IV Amt: 112 ML EXAM: CT Angiography Neck With Intravenous Contrast CLINICAL HISTORY: Reason for exam: AMS, word finding difficulty. TECHNIQUE: Routine carotid CT angiography protocol was performed with intravenous contrast. NASCET criteria using the distal ICAs for comparison were used for evaluation of stenoses. CTDI is 14.52 mGy and DLP is 528.89 mGy-cm. Automated exposure control was utilized for the study. A dose lowering technique was utilized adhering to the principles of ALARA. MIP reconstructed images were created and reviewed. CONTRAST: Patient received 112 ML of IV contrast COMPARISON: None. FINDINGS: VASCULATURE: Right common carotid artery: Unremarkable. No occlusion or significant stenosis. No dissection. Right internal carotid artery: There is moderate atherosclerotic calcification of the right carotid bulb with less than 50% stenosis of the right internal carotid artery. No dissection. Right external carotid artery: There is significant stenosis of the right external carotid artery with distal opacification. No occlusion. Right vertebral artery: Unremarkable. No occlusion or significant stenosis. No dissection. Left common carotid artery: Unremarkable. No occlusion or significant stenosis. No dissection. Left internal carotid artery: There is dense calcification of the left carotid bulb with less than 50% stenosis of the proximal left internal carotid artery. No dissection. Left external carotid artery: Unremarkable. No occlusion. Left vertebral artery: Unremarkable. No occlusion or significant stenosis. No dissection. Other vasculature: There is moderate atherosclerotic disease. NECK: Bones/joints: Unremarkable. Soft tissues: Unremarkable. Lung apices: Clear. CAROTID STENOSIS REFERENCE USING NASCET CRITERIA: % ICA stenosis = (1 - narrowest ICA diameter/diameter of distal cervical ICA) x 100. Mild - <50% stenosis. Moderate - 50-69% stenosis. Severe - 70-94% stenosis. Near occlusion - 95-99% stenosis. Occluded - 100% stenosis. IMPRESSION: 1. Atherosclerotic disease of the carotid bulbs, left greater than right. Less than 50% stenosis of the internal carotid arteries bilaterally. 2. Significant stenosis of the right external carotid artery proximally with distal opacification. Electronically signed by: Rah Webb MD 01/17/23 00:22 AM
[2023-01-17] MEDS: PANTOprazole 40 MG TAB PO SCH ×2 (08:35→20:55)
[2023-01-17] MEDS: EZETIMIBE 10 MG TABLET PO SCH (08:35)
[2023-01-17] MEDS: CLOPIDOGREL BISULFATE 75 MG TAB PO SCH (08:35)
[2023-01-17] MEDS: TAMSULOSIN HCL 0.4 MG CAP PO SCH (08:35)
[2023-01-17 08:52] LABS: Basophils # (auto) 0.06 K/uL (0-0.2); Basophils % (auto) 0.7 %; Eosinophils # (auto) 0.05 K/uL (0-0.50); Eosinophils % (auto) 0.6 %; Hematocrit (blood only) 41.5 % (42.0-52.0); Hemoglobin 14.2 g/dl (14.0-18.0); Immature Granulocytes # (auto) 0.06 K/uL (0.01-0.20); Immature Granulocytes % (auto) 0.7 %; Lymphocytes # (auto) 1.57 K/uL (1.2-3.4); Lymphocytes % (auto) 18.2 %; Mean Corpuscular Hemoglobin 30.7 pg (25.0-34.0); Mean Corpuscular Hgb Conc 34.2 g/dL (32.0-36.0); Mean Corpuscular Volume 89.8 fL (80.0-100.0); Monocytes # (auto) 0.68 K/uL (0.11-0.59); Monocytes % (auto) 7.9 %; Neutrophils # (auto) 6.21 K/uL (1.40-6.50); Neutrophils % (auto) 71.9 %; Platelet Count 146 K/uL (130-400); RDW Coefficient of Variation 12.9 % (11.5-14.5); RDW Standard Deviation 42.6 fL (36.4-46.3); Red Blood Count 4.62 M/uL (4.70-6.10); White Blood Count 8.63 K/ul (4.8-10.8)
[2023-01-17] MEDS ORDERED: APIXABAN 5 MG TABLET PO SCH (09:00)
[2023-01-17 09:09] LABS: BUN Creatinine Ratio 12.9 (10-20); Creatinine Clr Calc Pharmacy 39.3 ml/min; Est GFR (African American) 52.6 ml/min; Est GFR (Non-African American) 45.4 ml/min; Potassium 3.8 mmol/L (3.5-5.1)
--- NOTE | 2023-01-17 11:00 | XCELERA ---
[id number] \\[id number]
[2023-01-17 11:08] LABS: Estimated Average Glucose 146 mg/dl; Hemoglobin A1C 6.7 % (4.5-5.6)
[2023-01-17] MEDS ORDERED: LORazepam 2 MG/1 ML VIAL IV STA (12:29)
[2023-01-17] MEDS ORDERED: diphenhydrAMINE 50 MG/ML VIAL IV STA (12:54)
--- NOTE | 2023-01-17 12:59 | Cardiology Consultation ---
Date of Consultation January 17, 2023 Assessment & Plan (1) Sinus bradycardia: -likely secondary to chronic therapy with metoprolol succinate. -continue to monitor on telemetry. (2) CAD (coronary artery disease): -s/p CABG x 3, August 2020. (3) HTN (hypertension): -adequate control on current regimen. (4) PAF (paroxysmal atrial fibrillation): -follows a rate control long-term anticoagulation strategy. History of Present Illness Attending Physician: Dax Worrell MD History of Present Illness Mr. Antonio is a 77 year male admitted yesterday after being found on the floor and confused. This consultation was ordered to assist in his cardiac management. Of note, patient typically follows with Dr. Small the outpatient setting. History is obtained from review of his medical record. The patient remains confused today. He was found on the floor by his daughter. Was felt that he may have been down for as long as 9 hours. Patient was significantly confused, therefore, brought to the emergency room for further care. The patient does carry history of coronary artery disease having undergone a 3 vessel bypass in August 2020. He did experience postoperative atrial fibrillation and is now maintained on rate control and long-term anticoagulation. Currently, patient is resting comfortably in bed without complaints. Past medical and surgical history 1. Coronary artery disease 2. CABG x3-August 2020 3. Hypertension 4. Hypercholesterolemia 5. Diabetes mellitus 6. Postoperative atrial fibrillation 7. History of CVA 8. Left hemiplegia 9. Ambulatory dysfunction 10. Chronic renal failure 11. GERD 12. Depression Social history Single, lives alone No tobacco alcohol Review of systems Unreliable Allergies Allergy/AdvReac Type Severity Reaction Status Date / Time Corticosteroids Allergy Unknown Unknown Verified 01/16/23 19:40 (Glucocorticoids) niacin Allergy Unknown ARTHRALGIAS Verified 01/16/23 19:40 FROM ADVICOR telithromycin Allergy Unknown ARTHRALGIAS Verified 01/16/23 19:40 FROM ADVICOR atorvastatin AdvReac Intermediate Muscle Pain Verified 01/16/23 19:40 lovastatin AdvReac Intermediate ARTHRALGIAS Verified 01/16/23 19:40 FROM ADVICOR Xcaxupr-GDX-ArZ Reductase AdvReac Intermediate Muscle Pain Verified 01/16/23 19:40 Inhibitor [Lzmrsek-Udl-Ffb Reductase Inhibitor] Home Medications Medication Instructions Recorded Confirmed Type ezetimibe 10 mg tablet 10 mg PO QAM 11/11/19 01/16/23 History apixaban 5 mg tablet (Eliquis) 5 mg PO BID 01/17/21 01/16/23 History clopidogrel 75 mg tablet 75 mg PO QAM #30 tabs 01/29/21 01/16/23 Rx multivitamin with minerals 1 tab PO DAILY 03/16/21 01/16/23 History omeprazole 20 mg capsule,delayed 20 mg PO BID 03/16/21 01/16/23 History release amlodipine 2.5 mg tablet 2.5 mg PO DAILY 12/09/22 01/16/23 History metoprolol succinate 25 mg 25 mg PO BID 12/09/22 01/16/23 History tablet,extended release 24 hr baclofen 20 mg tablet 20 mg PO TID PRN Cramps 01/16/23 01/16/23 History lisinopril 10 mg tablet 10 mg PO DAILY 01/16/23 01/16/23 History ropinirole 0.5 mg tablet 0.5 mg PO DAILY 01/16/23 01/16/23 History tamsulosin 0.4 mg capsule 0.4 mg PO DAILY 01/16/23 01/16/23 History Patient History Medical History (Updated 01/17/23 @ 13:09 by Horacio Penaloza MD) Ambulatory dysfunction CAD (coronary artery disease) CHI (closed head injury) CKD (chronic kidney disease) stage 3, GFR 30-59 ml/min CVA (cerebral vascular accident) january 2021 Depression Diaphragmatic paralysis Diarrhea Elevated lipase Fall Generalized weakness GERD (gastroesophageal reflux disease) HTN (hypertension) Hypercholesteremia Hypertriglyceridemia Hypotension Left rib fracture Physical deconditioning Postoperative atrial fibrillation Presence of arterial stent L leg, unable to relate exact location. Pressure ulcer of right buttock Restless leg syndrome Stroke TIA (transient ischemic attack) Type II diabetes mellitus Surgical History H/O knee surgery stent behind left knee 2017 H/O vasectomy History of angioplasty of peripheral vessel LLE angiogram with FUNERAL SERVICE PRACTITIONER/EMBALMER popliteal 05/23/2018 Hx of colonoscopy 2017 S/P CABG x 3 Family History Grandfather Colorectal cancer Mother Diabetes Hypertension Brother Stroke Social History (Reviewed 01/16/23 @ 21:51 by GABE Driver Smoking Status: Former smoker Tobacco Type: Cigarettes Second Hand Exposure: No; Hx Alcohol Use: Yes Alcohol type: beer Hx Substance Use: No Preferred Language: Syriac Communication Ability: Impaired Communication Ability Comment: Aphasia. 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 HEENT exam is negative. Neck is supple with full carotid upstrokes. There are no carotid bruits. Jugular venous pressure is flat at 90. There is no thyromegaly. Cardiovascular exam reveals a regular rhythm with normal S1-S2. Heart sounds are distant. Chest reveals a well-healed midline scar. Abdomen is soft without bruits. Extremities reveal intact radial artery pulses bilaterally. There is no peripheral edema. Results & Data Vital Signs (Past 12 Hours) Vital Signs Temp Pulse Pulse Resp BP Pulse Ox O2 Del Method 01/17/23 11:50 36.6 C 78 18 124/71 97 Room Air 01/17/23 07:37 63 01/17/23 07:11 36.4 C L 55 L 18 137/67 96 Room Air 01/17/23 03:06 36.4 C L 60 18 167/84 H 97 Room Air Diagnostic Findings EKG notes sinus bradycardia without abnormalities. Similar findings on telemetry. PG Care Time/CCT Total # of Minutes Spent Total Time Spent with Patient: Total time spent is greater than 50% in coordination of care (as documented) at patient's floor/unit and/or counseling patient: Coding Level of Care Code 28637 INT INP/OBS CARE 3/75MIN Diagnoses Sinus bradycardia R00.1 CAD (coronary artery disease) I25.110 Associated angina: with unstable angina Coronary Disease-Associated Artery/Lesion type: [place] artery [place] vs. transplanted heart: [place] heart HTN (hypertension) I10 Hypertension type: essential hypertension PAF (paroxysmal atrial fibrillation) I48.0 (2) CAD (coronary artery disease) Associated angina: with unstable angina Coronary Disease-Associated Artery/Lesion type: [place] artery [place] vs. transplanted heart: [place] heart Qualified Code(s): I25.110 - Atherosclerotic heart disease of [place] coronary artery with unstable angina pectoris (3) HTN (hypertension) Hypertension type: essential hypertension Qualified Code(s): I10 - Essential (primary) hypertension
--- NOTE | 2023-01-17 14:07 | Electrocardiogram Report ---
Test Reason : Blood Pressure : / mmHG Vent. Rate : 057 BPM Atrial Rate : 057 BPM P-R Int : 136 ms QRS Dur : 076 ms QT Int : 462 ms P-R-T Axes : -02 -15 045 degrees QTc Int : 449 ms Poor data quality, interpretation may be adversely affected Sinus bradycardia Otherwise normal ECG When compared with ECG of 09-DEC-2022 17:30, Vent. rate has decreased BY 39 BPM Non-specific change in ST segment in Lateral leads Confirmed by Horacio Penaloza ([id number]) on 01/17/2023 2:07:42 PM Referred By: REFERRED SELF Confirmed By:Horacio Penaloza
--- NOTE | 2023-01-17 14:15 | Hospitalist Progress Note ---
Date of Service January 17, 2023 Assessment & Plan (1) AMS (altered mental status): Plan: Suspect metabolic encephalopathy possibly from syncope at home. He was found on the floor by his daughter. However, he has no recollection of this event. This raises the possibility of a syncopal episode due to his bradycardia that was seen on telemetry. Continue supportive care. Brain MRI scan pending. Head and neck CTA shows evidence of right external carotid stenosis which does not need intervention at this time. Head CT scan on admission was negative for hemorrhage. No apparent UTI. CK level is normal. No evidence of rhabdomyolysis from being down on the floor (2) HTN (hypertension): Plan: Metoprolol on hold due to junctional bradycardia. Continue amlodipine and lisinopril. (3) GERD (gastroesophageal reflux disease): Plan: Stable. Treated with omeprazole at home. We will use Protonix while hospitalized (4) Restless leg syndrome: Plan: Stable. Continue ropinirole (5) CKD (chronic kidney disease) stage 3, GFR 30-59 ml/min: Plan: Stable. Monitor intake and output. Serial labs (6) CAD (coronary artery disease): Plan: Stable. Continue current medical management except for metoprolol (7) Atrial fibrillation: Plan: Presently in sinus rhythm. Discontinued metoprolol due to intermittent junctional bradycardia. Eliquis is also temporarily on hold (8) DM (diabetes mellitus): Plan: ADA diet. Sliding scale coverage. Plan Anticipate eventual discharge back to home Admission and Anticipated Discharge Date Admission Date: January 16, 2023 Subjective The patient is awake. No acute distress. He seems somewhat confused however. I do not know what his baseline neurological status is unfortunately. Brain MRI scan is pending. He has intermittent junctional bradycardia seen on telemetry strips. Metoprolol has been discontinued. Appreciate cardiology consultation and recommendations. Thyroid panel is pending. Review of Systems Review of Systems: Constitutional-no fever or chills ENT-no blurred vision, no double vision, no epistaxis, no sore throat Respiratory-no cough, no wheezing, no shortness of breath Cardiac-no palpitations, no chest pain. The patient is unable to recall if he actually had syncope at home GI-no nausea, vomiting, diarrhea, melena, hematochezia -no urinary retention, no urinary incontinence, no dysuria, no hematuria Musculoskeletal-no joint pain, no muscle tenderness Skin-no bruising, no rashes, no pruritus Neuro-chronic left-sided weakness from previous stroke Psych-no depression, no anxiety Physical Exam Physical Exam: General-alert and oriented x3, no fevers, no chills HEENT-head atraumatic and normocephalic, pupils equal and reactive to light, extraocular muscles intact Neck-no lymphadenopathy or thyromegaly, trachea midline Chest-clear to auscultation percussion. No rales wheezing or rhonchi Cardiac-regular rate and rhythm, normal S1 and S2 Abdomen-normal bowel sounds, nontender, no hepatosplenomegaly Extremities-no cyanosis, clubbing, or edema Neuro-cranial nerves II through XII intact, left hemiparesis from previous stroke. Psych-normal affect, normal mood Results & Data Results & Data Vital Signs (Past 12 Hours) Vital Signs Temp Pulse Pulse Resp BP Pulse Ox O2 Del Method 01/17/23 11:50 36.6 C 78 18 124/71 97 Room Air 01/17/23 07:37 63 01/17/23 07:11 36.4 C L 55 L 18 137/67 96 Room Air 01/17/23 03:06 36.4 C L 60 18 167/84 H 97 Room Air Laboratory Results 01/17/23 07:53 01/17/23 07:53 PG Care Time/CCT Total # of Minutes Spent Total Time Spent with Patient: Total time spent is greater than 50% in coordination of care (as documented) at patient's floor/unit and/or counseling patient: Coding Level of Care Code 20752 SUB INP/OBS CARE 3/50MIN Diagnoses AMS (altered mental status) R41.82 HTN (hypertension) I10 Hypertension type: essential hypertension GERD (gastroesophageal reflux disease) K21.9 Esophagitis presence: esophagitis presence not specified Restless leg syndrome G25.81 CKD (chronic kidney disease) stage 3, GFR 30-59 ml/min N18.30 CAD (coronary artery disease) I25.110 Associated angina: with unstable angina Coronary Disease-Associated Artery/Lesion type: [place] artery [place] vs. transplanted heart: [place] heart Atrial fibrillation I48.0 Atrial fibrillation type: paroxysmal DM (diabetes mellitus) E11.9 Diabetes mellitus type: type 2 Diabetes mellitus skilled nursing insulin use: without skilled nursing use Diabetes mellitus complication status: without complication (2) HTN (hypertension) Hypertension type: essential hypertension Qualified Code(s): I10 - Essential (primary) hypertension (3) GERD (gastroesophageal reflux disease) Esophagitis presence: esophagitis presence not specified Qualified Code(s): K21.9 - Gastro-esophageal reflux disease without esophagitis (6) CAD (coronary artery disease) Associated angina: with unstable angina Coronary Disease-Associated Artery/Lesion type: [place] artery [place] vs. 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
--- NOTE | 2023-01-17 16:05 | Magnetic Resonance Report ---
MRI OF THE BRAIN WITHOUT CONTRAST CLINICAL HISTORY: Possible CVA. Confusion. Fall. COMPARISON STUDY: MRI of the brain July 27, [address] and CTA of the head January 16, 2023. TECHNIQUE: Utilizing a 1.5 Lila magnet and dedicated coil, multiplanar, multiecho imaging of the bra in was performed without IV contrast. FINDINGS: There are no foci of restricted diffusion to suggest acute infarct. No acute intracranial h emorrhage, midline shift or mass effect is present. Ventricular system is stable. Basal cisterns are patent. There are no extra-axial collections. Flow-voids for the major intracranial vessels are prese nt. This exam is mildly compromised by motion artifact although is diagnostic. A small old periventri cular right frontal lobe infarct is unchanged. White matter T2 hyperintense foci are unchanged since MRI of July 27, 2022 and suggest small vessel disease. There has been no significant change in nubia earance of the brain. No intracranial masses are identified on this unenhanced exam. Calvarial signal is within normal limits. IMPRESSION: No acute intracranial findings. No change in appearance of the brain since MRI of Octobe r 2021. ACT 112: Negative or not required by law. Electronically signed by: Ronny Sanderson M.D. 01/17/2023 4:02 PM
[2023-01-17] MEDS: rOPINIRole HCL 0.25 MG TABLET PO SCH (20:55)
[2023-01-18] MEDS: amLODIPine BESYLATE 5 MG TAB PO SCH (08:11)
[2023-01-18] MEDS: CLOPIDOGREL BISULFATE 75 MG TAB PO SCH (08:12)
[2023-01-18] MEDS: lisinopril 10 MG TAB PO SCH (08:13)
[2023-01-18] MEDS: TAMSULOSIN HCL 0.4 MG CAP PO SCH (08:13)
[2023-01-18] MEDS: EZETIMIBE 10 MG TABLET PO SCH (08:13)
[2023-01-18] MEDS: PANTOprazole 40 MG TAB PO SCH ×2 (08:13→20:29)
[2023-01-18 08:25] LABS: Basophils # (auto) 0.05 K/uL (0-0.2); Basophils % (auto) 0.7 %; Eosinophils # (auto) 0.06 K/uL (0-0.50); Eosinophils % (auto) 0.8 %; Hematocrit (blood only) 42.2 % (42.0-52.0); Immature Granulocytes # (auto) 0.04 K/uL (0.01-0.20); Immature Granulocytes % (auto) 0.5 %; Lymphocytes # (auto) 1.47 K/uL (1.2-3.4); Lymphocytes % (auto) 20.1 %; Mean Corpuscular Hemoglobin 30.4 pg (25.0-34.0); Mean Corpuscular Hgb Conc 33.2 g/dL (32.0-36.0); Mean Corpuscular Volume 91.7 fL (80.0-100.0); Mean Platelet Volume 12.2 fL (9.4-12.4); Monocytes # (auto) 0.58 K/uL (0.11-0.59); Monocytes % (auto) 7.9 %; Neutrophils # (auto) 5.11 K/uL (1.40-6.50); Platelet Count 134 K/uL (130-400); RDW Coefficient of Variation 13.2 % (11.5-14.5); RDW Standard Deviation 44.3 fL (36.4-46.3); White Blood Count 7.31 K/ul (4.8-10.8)
[2023-01-18 08:58] LABS: BUN Creatinine Ratio 14.7 (10-20); Calcium 9.1 mg/dl (8.6-10.3); Creatinine Clr Calc Pharmacy 32.7 ml/min; Est GFR (Non-African American) 36.2 ml/min; Potassium 3.7 mmol/L (3.5-5.1)
--- NOTE | 2023-01-18 15:09 | Hospitalist Progress Note ---
Date of Service January 18, 2023 Assessment & Plan (1) AMS (altered mental status): Plan: Suspect metabolic encephalopathy possibly from syncope at home. He was found on the floor by his daughter. However, he has no recollection of this event. This raises the possibility of a syncopal episode due to his bradycardia that was seen on telemetry. Continue supportive care. Brain MRI scan with no changes when compared to 06/2022. Head and neck CTA shows evidence of right external carotid stenosis which does not need intervention at this time. Head CT scan on admission was negative for hemorrhage. No apparent UTI. CK level is normal. No evidence of rhabdomyolysis from being down on the floor. TSH, T3 and T4 all normal (2) HTN (hypertension): Plan: Chronic Sinus bradycardia likely swcondary to chronic therapy with Metoprolol succinate Metoprolol on hold. Continue amlodipine and lisinopril. Continue to monitor on tele Cardiology following (3) GERD (gastroesophageal reflux disease): Plan: Chronic and Stable. Continue Protonix while hospitalized (omeprazole at home) (4) Restless leg syndrome: Plan: Chronic and Stable. Continue ropinirole (5) CKD (chronic kidney disease) stage 3, GFR 30-59 ml/min: Plan: Chronic and Stable. Monitor intake and output. Serial labs (6) CAD (coronary artery disease): Plan: Chronic and Stable. Continue current medical management except for metoprolol (7) Atrial fibrillation: Plan: Presently in sinus rhythm. Held metoprolol due to intermittent junctional bradycardia. Eliquis is also temporarily on hold (8) DM (diabetes mellitus): Plan: Chronic and stable HgbA1C 6.7 ADA diet. Sliding scale coverage. Plan Daughter Najma wanting to be placed in [facility] Admission and Anticipated Discharge Date Admission Date: January 16, 2023 Subjective The patient is awake in bed, currently he is alert and oriented x 3. Apparently he has periods of confusion. Dtr Najma interested in getting guardianship for her father. CM is working on getting him placed to [facility]. Patient has no complaints this afternoon. Review of Systems Review of Systems: Constitutional-no fever or chills ENT-no blurred vision, no double vision, no epistaxis, no sore throat Respiratory-no cough, no wheezing, no shortness of breath Cardiac-no palpitations, no chest pain. The patient is unable to recall if he actually had syncope at home GI-no nausea, vomiting, diarrhea, melena, hematochezia -no urinary retention, no urinary incontinence, no dysuria, no hematuria Musculoskeletal-no joint pain, no muscle tenderness Skin-no bruising, no rashes, no pruritus Neuro-chronic left-sided weakness from previous stroke Psych-no depression, no anxiety Physical Exam Constitutional: WD/WN, vitals as above Neck: trachea midline, no thyromegaly Respiratory: normal respiratory effort, lungs clear to auscultation Cardiovascular: RRR, no murmur, no edema Gastrointestinal (Abdomen): normal bowel sounds, soft, nontender, no hepatosplenomegaly Neurologic: chronic left sided weakness and decreased ROM and strength Psychiatric: Orientation: alert, oriented to person, oriented to place and cooperative Results & Data Results & Data Vital Signs (Past 12 Hours) Vital Signs Temp Pulse Pulse Resp BP BP Pulse Ox 01/18/23 14:56 36.7 C 59 L 20 109/69 94 01/18/23 11:09 36.4 C L 75 18 129/76 94 01/18/23 07:00 36.6 C 70 20 136/77 95 01/18/23 07:15 58 L 01/18/23 03:13 36.8 C 74 18 131/77 97 O2 Del Method 01/18/23 14:56 Room Air 01/18/23 11:09 Room Air 01/18/23 07:00 Room Air 01/18/23 07:15 01/18/23 03:13 Room Air Laboratory Results Abnormal lab results 01/18/23 01/18/23 Range/Units 07:33 07:33 RBC 4.60 L (4.70-6.10) M/uL Chloride 110 H (98-107) mmol/L BUN 26 H (6-23) mg/dl Creatinine 1.77 H D (0.6-1.4) mg/dl Glucose 110 H (70-99(Fasting)) mg/dl Diagnostic Findings Brain MRI 01/17/23 12:29 MRI OF THE BRAIN WITHOUT CONTRAST CLINICAL HISTORY: Possible CVA. Confusion. Fall. COMPARISON STUDY: MRI of the brain July 27, [address] and CTA of the head January 16, 2023. TECHNIQUE: Utilizing a 1.5 Lila magnet and dedicated coil, multiplanar, multiecho imaging of the brain was performed without IV contrast. FINDINGS: There are no foci of restricted diffusion to suggest acute infarct. No acute intracranial hemorrhage, midline shift or mass effect is present. Ventricular system is stable. Basal cisterns are patent. There are no extra- axial collections. Flow-voids for the major intracranial vessels are present. This exam is mildly compromised by motion artifact although is diagnostic. A small old periventricular right frontal lobe infarct is unchanged. White matter T2 hyperintense foci are unchanged since MRI of July 27, 2022 and suggest small vessel disease. There has been no significant change in appearance of the brain. No intracranial masses are identified on this unenhanced exam. Calvarial signal is within normal limits. IMPRESSION: No acute intracranial findings. No change in appearance of the brain since MRI of July 27, 2022. ACT 112: Negative or not required by law. Electronically signed by: Ronny Sanderson M.D. 01/17/2023 4:02 PM PG Care Time/CCT Total # of Minutes Spent Total Time Spent with Patient: Total time spent is greater than 50% in coordination of care (as documented) at patient's floor/unit and/or counseling patient: Coding Level of Care Code 26179 SUB INP/OBS CARE 2/35MIN Diagnoses AMS (altered mental status) R41.82 HTN (hypertension) I10 Hypertension type: essential hypertension GERD (gastroesophageal reflux disease) K21.9 Esophagitis presence: esophagitis presence not specified Restless leg syndrome G25.81 CKD (chronic kidney disease) stage 3, GFR 30-59 ml/min N18.30 CAD (coronary artery disease) I25.110 Associated angina: with unstable angina Coronary Disease-Associated Artery/Lesion type: [place] artery [place] vs. transplanted heart: [place] heart Atrial fibrillation I48.0 Atrial fibrillation type: paroxysmal DM (diabetes mellitus) E11.9 Diabetes mellitus complication status: without complication Diabetes mellitus alf insulin use: without alf use Diabetes mellitus type: type 2 (2) HTN (hypertension) Hypertension type: essential hypertension Qualified Code(s): I10 - Essential (primary) hypertension (3) GERD (gastroesophageal reflux disease) Esophagitis presence: esophagitis presence not specified Qualified Code(s): K21.9 - Gastro-esophageal reflux disease without esophagitis (6) CAD (coronary artery disease) Associated angina: with unstable angina Coronary Disease-Associated Artery/Lesion type: [place] artery [place] vs. transplanted heart: [place] heart Qualified Code(s): I25.110 - Atherosclerotic heart disease of [place] coronary artery with unstable angina pectoris (7) Atrial fibrillation Atrial fibrillation type: paroxysmal Qualified Code(s): I48.0 - Paroxysmal atrial fibrillation (8) DM (diabetes mellitus) Diabetes mellitus complication status: without complication Diabetes mellitus intermediate accountant insulin use: without intermediate accountant use Diabetes mellitus type: type 2 Qualified Code(s): E11.9 - Type 2 diabetes mellitus without complications
[2023-01-18] MEDS: rOPINIRole HCL 0.25 MG TABLET PO SCH (20:29)
--- NOTE | 2023-01-19 07:32 | Hospitalist Progress Note ---
Date of Service January 19, 2023 Assessment & Plan (1) AMS (altered mental status): Plan: Improved - Patient A&O x 3 today Suspect metabolic encephalopathy possibly from syncope at home. He was found on the floor by his daughter. However, he has no recollection of this event. This raises the possibility of a syncopal episode due to his bradycardia that was seen on telemetry. Continue supportive care. Brain MRI scan with no changes when compared to 06/2022. Head and neck CTA shows evidence of right external carotid stenosis which does not need intervention at this time. Head CT scan on admission was negative for hemorrhage. No apparent UTI. CK level is normal. No evidence of rhabdomyolysis from being down on the floor. TSH, T3 and T4 all normal (2) HTN (hypertension): Plan: Chronic and stable Sinus bradycardia likely secondary to chronic therapy with Metoprolol succinate Metoprolol was on hold for bradycardia ( was on 25mg BID) heart rate today 120s on monitor and will restart 25mg Continue amlodipine and lisinopril. Continue to monitor on tele Cardiology following (3) GERD (gastroesophageal reflux disease): Plan: Chronic and Stable. Continue Protonix while hospitalized (omeprazole at home) (4) Restless leg syndrome: Plan: Chronic and Stable. Continue ropinirole (5) CKD (chronic kidney disease) stage 3, GFR 30-59 ml/min: Plan: Chronic and Stable. Monitor intake and output. Serial labs (6) CAD (coronary artery disease): Plan: Chronic and Stable. Continue current medical management except for metoprolol (7) Atrial fibrillation: Plan: Presently in sinus rhythm. Held metoprolol due to intermittent junctional bradycardia. Eliquis is also temporarily on hold (8) DM (diabetes mellitus): Plan: Chronic and stable HgbA1C 6.7 ADA diet. Sliding scale coverage. Plan Daughter Najma (applying for guardianship) wanting to be placed in [facility] Admission and Anticipated Discharge Date Admission Date: January 16, 2023 Subjective Patient is awake sitting up in recliner He states he feels rather well today and thinks he is getting stronger Review of Systems Review of Systems: Constitutional-no fever or chills ENT-no blurred vision, no double vision, no epistaxis, no sore throat Respiratory-no cough, no wheezing, no shortness of breath Cardiac-no palpitations, no chest pain. The patient is unable to recall if he actually had syncope at home GI-no nausea, vomiting, diarrhea, melena, hematochezia -no urinary retention, no urinary incontinence, no dysuria, no hematuria Musculoskeletal-no joint pain, no muscle tenderness, weakness left Skin-no bruising, no rashes, no pruritus Neuro-chronic left-sided weakness from previous stroke Psych-no depression, no anxiety Physical Exam Constitutional: WD/WN, vitals as above Neck: trachea midline, no thyromegaly Respiratory: normal respiratory effort, lungs clear to auscultation Cardiovascular: RRR, no murmur, no edema Gastrointestinal (Abdomen): normal bowel sounds, soft, nontender, no hepatosplenomegaly Musculoskeletal: weakness left side from previous stroke Psychiatric: Orientation: alert, oriented to person, oriented to place and cooperative Results & Data Results & Data Vital Signs (Past 12 Hours) Vital Signs Temp Pulse Pulse Resp BP Pulse Ox O2 Del Method 01/19/23 07:22 56 L 01/19/23 07:00 36.4 C L 66 18 128/76 94 Room Air 01/19/23 02:59 36.7 C 61 16 127/71 94 Room Air 01/18/23 22:02 65 01/18/23 23:15 36.8 C 58 L 16 134/72 94 Room Air 01/18/23 21:28 Room Air 01/18/23 19:44 36.9 C 66 18 107/61 95 Room Air Laboratory Results Abnormal lab results 01/18/23 Range/Units 20:20 POC Glucose 122 H (70-99) mg/dl PG Care Time/CCT Total # of Minutes Spent Total Time Spent with Patient: Total time spent is greater than 50% in coordination of care (as documented) at patient's floor/unit and/or counseling patient: Coding Level of Care Code 40169 SUB INP/OBS CARE 2/35MIN Diagnoses AMS (altered mental status) R41.82 HTN (hypertension) I10 Hypertension type: essential hypertension GERD (gastroesophageal reflux disease) K21.9 Esophagitis presence: esophagitis presence not specified Restless leg syndrome G25.81 CKD (chronic kidney disease) stage 3, GFR 30-59 ml/min N18.30 CAD (coronary artery disease) I25.110 Associated angina: with unstable angina Coronary Disease-Associated Artery/Lesion type: [place] artery [place] vs. transplanted heart: [place] heart Atrial fibrillation I48.0 Atrial fibrillation type: paroxysmal DM (diabetes mellitus) E11.9 Diabetes mellitus complication status: without complication Diabetes mellitus sampler radioactive waste insulin use: without snf use Diabetes mellitus type: type 2 (2) HTN (hypertension) Hypertension type: essential hypertension Qualified Code(s): I10 - Essential (primary) hypertension (3) GERD (gastroesophageal reflux disease) Esophagitis presence: esophagitis presence not specified Qualified Code(s): K21.9 - Gastro-esophageal reflux disease without esophagitis (6) CAD (coronary artery disease) Associated angina: with unstable angina Coronary Disease-Associated Artery /Lesion type: [place] artery [place] vs. transplanted heart: [place] heart Qualified Code(s): I25.110 - Atherosclerotic heart disease of [place] coronary artery with unstable angina pectoris (7) Atrial fibrillation Atrial fibrillation type: paroxysmal Qualified Code(s): I48.0 - Paroxysmal atrial fibrillation (8) DM (diabetes mellitus) Diabetes mellitus complication status: without complication Diabetes mellitus sampler radioactive waste insulin use: without snf use Diabetes mellitus type: type 2 Qualified Code(s): E11.9 - Type 2 diabetes mellitus without complications
[2023-01-19] MEDS: amLODIPine BESYLATE 5 MG TAB PO SCH (08:20)
[2023-01-19] MEDS: TAMSULOSIN HCL 0.4 MG CAP PO SCH (08:21)
[2023-01-19] MEDS: EZETIMIBE 10 MG TABLET PO SCH (08:21)
[2023-01-19] MEDS: CLOPIDOGREL BISULFATE 75 MG TAB PO SCH (08:21)
[2023-01-19] MEDS: PANTOprazole 40 MG TAB PO SCH ×2 (08:21→19:49)
[2023-01-19] MEDS: lisinopril 10 MG TAB PO SCH (08:21)
[2023-01-19] MEDS: METOPROLOL SUCC 25MG EXT REL TAB PO SCH (13:35)
[2023-01-19 15:40] LABS: Calcium 8.8 mg/dl (8.6-10.3)
[2023-01-19 15:46] LABS: BUN Creatinine Ratio 15.3 (10-20); Creatinine Clr Calc Pharmacy 35.5 ml/min; Est GFR (African American) 46.4 ml/min
[2023-01-19 15:57] LABS: Basophils # (auto) 0.04 K/uL (0-0.2); Basophils % (auto) 0.6 %; Eosinophils # (auto) 0.07 K/uL (0-0.50); Hematocrit (blood only) 43.2 % (42.0-52.0); Immature Granulocytes # (auto) 0.02 K/uL (0.01-0.20); Immature Granulocytes % (auto) 0.3 %; Lymphocytes # (auto) 0.99 K/uL (1.2-3.4); Lymphocytes % (auto) 14.7 %; Mean Corpuscular Hemoglobin 30.9 pg (25.0-34.0); Mean Corpuscular Hgb Conc 34.7 g/dL (32.0-36.0); Mean Corpuscular Volume 89.1 fL (80.0-100.0); Mean Platelet Volume 11.9 fL (9.4-12.4); Monocytes % (auto) 7.4 %; Neutrophils # (auto) 5.12 K/uL (1.40-6.50); Platelet Count 138 K/uL (130-400); RDW Coefficient of Variation 12.9 % (11.5-14.5); RDW Standard Deviation 41.7 fL (36.4-46.3); Red Blood Count 4.85 M/uL (4.70-6.10); White Blood Count 6.74 K/ul (4.8-10.8)
[2023-01-19] MEDS: rOPINIRole HCL 0.25 MG TABLET PO SCH (19:49)
[2023-01-20] MEDS: amLODIPine BESYLATE 5 MG TAB PO SCH (07:36)
[2023-01-20] MEDS: TAMSULOSIN HCL 0.4 MG CAP PO SCH (07:36)
[2023-01-20] MEDS: CLOPIDOGREL BISULFATE 75 MG TAB PO SCH (07:37)
[2023-01-20] MEDS: lisinopril 10 MG TAB PO SCH (07:37)
[2023-01-20] MEDS: PANTOprazole 40 MG TAB PO SCH ×2 (07:37→20:01)
[2023-01-20] MEDS: EZETIMIBE 10 MG TABLET PO SCH (07:37)
[2023-01-20] MEDS: METOPROLOL SUCC 25MG EXT REL TAB PO SCH (07:37)
--- NOTE | 2023-01-20 14:07 | Hospitalist Progress Note ---
Date of Service January 20, 2023 Assessment & Plan (1) AMS (altered mental status): Plan: Improved - Patient A&O x 2 today Slightly confused this afternoon, but he is easily directed Suspect metabolic encephalopathy possibly from syncope at home. He was found on the floor by his daughter. However, he has no recollection of this event. This raises the possibility of a syncopal episode due to his bradycardia that was seen on telemetry. Continue supportive care. Brain MRI scan with no changes when compared to 06/2022. Head and neck CTA shows evidence of right external carotid stenosis which does not need intervention at this time. Head CT scan on admission was negative for hemorrhage. No apparent UTI. CK level is normal. No evidence of rhabdomyolysis from being down on the floor. TSH, T3 and T4 all normal (2) HTN (hypertension): Plan: Chronic and stable Continue amlodipine and lisinopril and metoprolol Continue to monitor on tele Cardiology following (3) GERD (gastroesophageal reflux disease): Plan: Chronic and Stable. Continue Protonix while hospitalized (omeprazole at home) (4) Restless leg syndrome: Plan: Chronic and Stable. Continue ropinirole (5) CKD (chronic kidney disease) stage 3, GFR 30-59 ml/min: Plan: Chronic and Stable. Monitor intake and output. Serial labs (6) CAD (coronary artery disease): Plan: Chronic and Stable. Continue current medical management (7) Atrial fibrillation: Plan: Presently in sinus rhythm. On Plavix and Eliquis (8) DM (diabetes mellitus): Plan: Chronic and stable HgbA1C 6.7 ADA diet. Sliding scale coverage. Plan Daughter Najma (now POA) wanting to be placed in [facility] working on bed approval/availability Admission and Anticipated Discharge Date Admission Date: January 16, 2023 Subjective Patient is seen this afternoon. He is laying in his bed and is alert x2. He is somewhat confused and talking about going to get a lawnmower with his dtr Katharina. We are awaiting placement and authorization for [facility]. Review of Systems Review of Systems: Constitutional-no fever or chills ENT-no blurred vision, no double vision, no epistaxis, no sore throat Respiratory-no cough, no wheezing, no shortness of breath Cardiac-no palpitations, no chest pain. The patient is unable to recall if he actually had syncope at home GI-no nausea, vomiting, diarrhea, melena, hematochezia -no urinary retention, no urinary incontinence, no dysuria, no hematuria Musculoskeletal-no joint pain, no muscle tenderness, weakness left Skin-no bruising, no rashes, no pruritus Neuro-chronic left-sided weakness from previous stroke Psych-no depression, no anxiety Physical Exam Constitutional: WD/WN, vitals as above Neck: trachea midline, no thyromegaly Respiratory: normal respiratory effort, lungs clear to auscultation Cardiovascular: RRR, no murmur, no edema Gastrointestinal (Abdomen): normal bowel sounds, soft, nontender, no he patosplenomegaly Neurologic: left sided weakness from previous stroke Psychiatric: Orientation: alert, oriented to person, oriented to place and cooperative Results & Data Results & Data Vital Signs (Past 12 Hours) Vital Signs Temp Pulse Resp BP Pulse Ox O2 Del Method 01/20/23 11:24 36.5 C 61 18 114/69 96 Room Air 01/20/23 08:07 36.4 C L 87 20 156/83 H 93 Room Air 01/20/23 02:54 36.5 C 64 18 131/76 97 Room Air PG Care Time/CCT Total # of Minutes Spent Total Time Spent with Patient: Total time spent is greater than 50% in coordination of care (as documented) at patient's floor/unit and/or counseling patient: Coding Level of Care Code 94762 SUB INP/OBS CARE 2/35MIN Diagnoses AMS (altered mental status) R41.82 HTN (hypertension) I10 Hypertension type: essential hypertension GERD (gastroesophageal reflux disease) K21.9 Esophagitis presence: esophagitis presence not specified Restless leg syndrome G25.81 CKD (chronic kidney disease) stage 3, GFR 30-59 ml/min N18.30 CAD (coronary artery disease) I25.110 Associated angina: with unstable angina Coronary Disease-Associated Artery/Lesion type: [place] artery [place] vs. transplanted heart: [place] heart Atrial fibrillation I48.0 Atrial fibrillation type: paroxysmal DM (diabetes mellitus) E11.9 Diabetes mellitus complication status: without complication Diabetes mellitus terminal clerk insulin use: without terminal clerk use Diabetes mellitus type: type 2 (2) HTN (hypertension) Hypertension type: essential hypertension Qualified Code(s): I10 - Essential (primary) hypertension (3) GERD (gastroesophageal reflux disease) Esophagitis presence: esophagitis presence not specified Qualified Code(s): K21.9 - Gastro-esophageal reflux disease without esophagitis (6) CAD (coronary artery disease) Associated angina: with unstable angina Coronary Disease-Associated Artery/Lesion type: [place] artery [place] vs. transplanted heart: [place] heart Qualified Code(s): I25.110 - Atherosclerotic heart disease of [place] coronary artery with unstable angina pectoris (7) Atrial fibrillation Atrial fibrillation type: paroxysmal Qualified Code(s): I48.0 - Paroxysmal atrial fibrillation (8) DM (diabetes mellitus) Diabetes mellitus complication status: without complication Diabetes mellitus fdc insulin use: without fdc use Diabetes mellitus type: type 2 Qualified Code(s): E11.9 - Type 2 diabetes mellitus without complications
[2023-01-20] MEDS: rOPINIRole HCL 0.25 MG TABLET PO SCH (20:01)
[2023-01-20] MEDS: APIXABAN 5 MG TABLET PO SCH (20:01)
[2023-01-21] MEDS: APIXABAN 5 MG TABLET PO SCH ×2 (07:52→21:58)
[2023-01-21] MEDS: BACLOFEN 20 MG TAB PO PRN (07:53)
[2023-01-21] MEDS: EZETIMIBE 10 MG TABLET PO SCH (07:53)
[2023-01-21] MEDS: TAMSULOSIN HCL 0.4 MG CAP PO SCH (07:53)
[2023-01-21] MEDS: PANTOprazole 40 MG TAB PO SCH ×2 (07:53→21:57)
[2023-01-21] MEDS: lisinopril 10 MG TAB PO SCH (07:53)
[2023-01-21] MEDS: amLODIPine BESYLATE 5 MG TAB PO SCH (07:54)
[2023-01-21] MEDS: CLOPIDOGREL BISULFATE 75 MG TAB PO SCH (07:54)
[2023-01-21] MEDS: METOPROLOL SUCC 25MG EXT REL TAB PO SCH (07:54)
--- NOTE | 2023-01-21 13:25 | Hospitalist Progress Note ---
Date of Service January 21, 2023 Assessment & Plan (1) AMS (altered mental status): Plan: Improved - Patient A&O x 2 today Slightly confused this afternoon, but he is easily directed Suspect metabolic encephalopathy possibly from syncope at home. He was found on the floor by his daughter. However, he has no recollection of this event. This raises the possibility of a syncopal episode due to his bradycardia that was seen on telemetry. Continue supportive care. Brain MRI scan with no changes when compared to 06/2022. Head and neck CTA shows evidence of right external carotid stenosis which does not need intervention at this time. Head CT scan on admission was negative for hemorrhage. No apparent UTI. CK level is normal. No evidence of rhabdomyolysis from being down on the floor. TSH, T3 and T4 all normal Spoke with patient's daughter Najma via the phone [phone]- [phone] and she stated they are interested in a retirement bed at [facility] and are awaiting bed availability and approval (2) HTN (hypertension): Plan: Chronic and stable Continue amlodipine and lisinopril and metoprolol Cardiology following (3) GERD (gastroesophageal reflux disease): Plan: Chronic and Stable. Continue Protonix while hospitalized (omeprazole at home) (4) Restless leg syndrome: Plan: Chronic and Stable. Continue ropinirole (5) CKD (chronic kidney disease) stage 3, GFR 30-59 ml/min: Plan: Chronic and Stable. Monitor intake and output. Serial labs (6) CAD (coronary artery disease): Plan: Chronic and Stable. Continue current medical management (7) Atrial fibrillation: Plan: Presently in sinus rhythm. On Plavix and Eliquis (8) DM (diabetes mellitus): Plan: Chronic and stable HgbA1C 6.7 ADA diet. Sliding scale coverage. Plan Daughter Najma (now POA) wanting to be placed in [facility] working on bed approval/availability Admission and Anticipated Discharge Date Admission Date: January 16, 2023 Supervising Physician Co-Signing Physician Notes PA Supervision Note: I did not personally see or examine the patient today, but I verified all morrison points of SHAUN Ricks's assessment and plan with the following exceptions/additions: None Subjective Patient is seen this afternoon. He is sitting up in recliner eating lunch and is alert x2. We are awaiting placement and authorization for [facility]. I spoke with patient's dtr Najma today via the phone and she states that hey are interested in a retirement bed at [facility]. Review of Systems Review of Systems: Constitutional-no fever or chills + fatigue today ENT-no blurred vision, no double vision, no epistaxis, no sore throat Respiratory-no cough, no wheezing, no shortness of breath Cardiac-no palpitations, no chest pain. The patient is unable to recall if he actually had syncope at home GI-no nausea, vomiting, diarrhea, melena, hematochezia -no urinary retention, no urinary incontinence, no dysuria, no hematuria Musculoskeletal-no joint pain, no muscle tenderness, weakness left Skin-no bruising, no rashes, no pruritus Neuro-chronic left-sided weakness from previous stroke Psych-no depression, no anxiety Physical Exam Constitutional: WD/WN, vitals as above Neck: trachea midline, no thyromegaly Respiratory: normal respiratory effort, lungs clear to auscultation Cardiovascular: RRR, no murmur, no edema Gastrointestinal (Abdomen): normal bowel sounds, soft, nontender, no hepatosplenomegaly Psychiatric: Orientation: alert, oriented to person, oriented to place and cooperative Results & Data Results & Data Vital Signs (Past 12 Hours) Vital Signs Temp Pulse Pulse Resp BP Pulse Ox O2 Del Method 01/21/23 10:57 36.5 C 65 18 110/72 97 Room Air 01/21/23 07:28 Room Air 01/21/23 07:06 36.5 C 59 L 16 161/78 H 95 Room Air 01/21/23 07:05 58 L 01/21/23 03:55 36.3 C L 64 18 128/68 95 Room Air PG Care Time/CCT Total # of Minutes Spent Total Time Spent with Patient: Total time spent is greater than 50% in coordination of care (as documented) at patient's floor/unit and/or counseling patient: Coding Level of Care Code 09974 SUB INP/OBS CARE 235MIN Diagnoses AMS (altered mental status) R41.82 HTN (hypertension) I10 Hypertension type: essential hypertension GERD (gastroesophageal reflux disease) K21.9 Esophagitis presence: esophagitis presence not specified Restless leg syndrome G25.81 CKD (chronic kidney disease) stage 3, GFR 30-59 ml/min N18.30 CAD (coronary artery disease) I25.110 Associated angina: with unstable angina Coronary Disease-Associated Artery/Lesion type: [place] artery [place] vs. transplanted heart: [place] heart Atrial fibrillation I48.0 Atrial fibrillation type: paroxysmal DM (diabetes mellitus) E11.9 Diabetes mellitus complication status: without complication Diabetes mellitus retirement insulin use: without retirement use Diabetes mellitus type: type 2 (2) HTN (hypertension) Hypertension type: essential hypertension Qualified Code(s): I10 - Essential (primary) hypertension (3) GERD (gastroesophageal reflux disease) Esophagitis presence: esophagitis presence not specified Qualified Code(s): K21.9 - Gastro-esophageal reflux disease without esophagitis (6) CAD (coronary artery disease) Associated angina: with unstable angina Coronary Disease-Associated Artery/Lesion type: [place] artery [place] vs. transplanted heart: [place] heart Qualified Code(s): I25.110 - Atherosclerotic heart disease of [place] coronary artery with unstable angina pectoris (7) Atrial fibrillation Atrial fibrillation type: paroxysmal Qualified Code(s): I48.0 - Paroxysmal atrial fibrillation (8) DM (diabetes mellitus) Diabetes mellitus complication status: without complication Diabetes mellitus rat exterminator insulin use: without retirement use Diabetes mellitus type: type 2 Qualified Code(s): E11.9 - Type 2 diabetes mellitus without complications
[2023-01-21] MEDS: rOPINIRole HCL 0.25 MG TABLET PO SCH (21:58)
[2023-01-22] MEDS: amLODIPine BESYLATE 5 MG TAB PO SCH (07:52)
[2023-01-22] MEDS: TAMSULOSIN HCL 0.4 MG CAP PO SCH (07:52)
[2023-01-22] MEDS: APIXABAN 5 MG TABLET PO SCH ×2 (07:52→20:15)
[2023-01-22] MEDS: CLOPIDOGREL BISULFATE 75 MG TAB PO SCH (07:52)
[2023-01-22] MEDS: EZETIMIBE 10 MG TABLET PO SCH (07:52)
[2023-01-22] MEDS: lisinopril 10 MG TAB PO SCH (07:52)
[2023-01-22] MEDS: METOPROLOL SUCC 25MG EXT REL TAB PO SCH (07:53)
[2023-01-22] MEDS: PANTOprazole 40 MG TAB PO SCH ×2 (07:53→20:15)
--- NOTE | 2023-01-22 13:37 | Hospitalist Progress Note ---
Date of Service January 22, 2023 Assessment & Plan (1) AMS (altered mental status): Plan: Improved - Patient A&O x 3 today Suspect metabolic encephalopathy possibly from syncope at home. He was found on the floor by his daughter. However, he has no recollection of this event. This raises the possibility of a syncopal episode due to his bradycardia that was seen on telemetry. Continue supportive care. Brain MRI scan with no changes when compared to 06/2022. Head and neck CTA shows evidence of right external carotid stenosis which does not need intervention at this time. Head CT scan on admission was negative for hemorrhage. No apparent UTI. CK level is normal. No evidence of rhabdomyolysis from being down on the floor. TSH, T3 and T4 all normal Spoke with patient's daughter Najma via the phone 1- [phone] There is no correction bed at [facility] but had no bed availability and CM made referrals to [facility] (2) HTN (hypertension): Plan: Chronic and stable Continue amlodipine and lisinopril and metoprolol Cardiology was consulted 01/17/23 and stated the bradycardia was likely secondary to chronic therapy with metoprolol succinate (3) GERD (gastroesophageal reflux disease): Plan: Chronic and Stable. Continue Protonix while hospitalized (omeprazole at home) (4) Restless leg syndrome: Plan: Chronic and Stable. Continue ropinirole (5) CKD (chronic kidney disease) stage 3, GFR 30-59 ml/min: Plan: Chronic and Stable. Monitor intake and output. Serial labs (6) CAD (coronary artery disease): Plan: Chronic and Stable. 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 On Plavix and Eliquis (8) DM (diabetes mellitus): Plan: Chronic and stable HgbA1C 6.7 ADA diet. Sliding scale coverage. Plan Daughter Najma (now POA) CM working on bed approval/availability now to [facility] [place] Admission and Anticipated Discharge Date Admission Date: January 16, 2023 Supervising Physician Co-Signing Physician Notes PA Supervision Note: I did not personally see or examine the patient today, but I verified all morrison points of SHAUN Ricks's assessment and plan with the following exceptions/additions: None Subjective Patient is awake in bed and is aware there are no beds available at [facility] and that sent referrals to [facility] and [facility]. He states he is upset about having to stay in the hospital all weekend but understands. Review of Systems Review of Systems: Constitutional-no fever or chills + fatigue today ENT-no blurred vision, no double vision, no epistaxis, no sore throat Respiratory-no cough, no wheezing, no shortness of breath Cardiac-no palpitations, no chest pain. The patient is unable to recall if he actually had syncope at home GI-no nausea, vomiting, diarrhea, melena, hematochezia -no urinary retention, no urinary incontinence, no dysuria, no hematuria Musculoskeletal-no joint pain, no muscle tenderness, weakness left Skin-no bruising, no rashes, no pruritus Neuro-chronic left-sided weakness from previous stroke Psych-no depression, no anxiety Physical Exam Constitutional: WD/WN, vitals as above Neck: trachea midline, no thyromegaly Respiratory: normal respiratory effort, lungs clear to auscultation Cardiovascular: RRR, no murmur, no edema Gastrointestinal (Abdomen): normal bowel sounds, soft, nontender, no hepatosplenomegaly Musculoskeletal: left sided weakness from previous CVA Psychiatric: Orientation: alert, oriented to person, oriented to place and cooperative Results & Data Results & Data Vital Signs (Past 12 Hours) Vital Signs Temp Pulse Pulse Resp BP BP Pulse Ox 01/22/23 11:44 36.3 C L 58 L 18 130/78 100 01/22/23 10:56 69 01/22/23 07:36 36.4 C L 54 L 16 116/65 91 01/22/23 04:00 36.3 C L 62 18 161/82 H 97 O2 Del Method 01/22/23 11:44 Room Air 01/22/23 10:56 01/22/23 07:36 Room Air 01/22/23 04:00 Room Air PG Care Time/CCT Total # of Minutes Spent Total Time Spent with Patient: Total time spent is greater than 50% in coordination of care (as documented) at patient's floor/unit and/or counseling patient: Coding Level of Care Code 37590 SUB INP/OBS CARE 2/35MIN Diagnoses AMS (altered mental status) R41.82 HTN (hypertension) I10 Hypertension type: essential hypertension GERD (gastroesophageal reflux disease) K21.9 Esophagitis presence: esophagitis presence not specified Restless leg syndrome G25.81 CKD (chronic kidney disease) stage 3, GFR 30-59 ml/min N18.30 CAD (coronary artery disease) I25.110 Associated angina: with unstable angina Coronary Disease-Associated Artery/Lesion type: [place] artery [place] vs. transplanted heart: [place] heart Atrial fibrillation I48.0 Atrial fibrillation type: paroxysmal DM (diabetes mellitus) E11.9 Diabetes mellitus complication status: without complication Diabetes mellitus middle or intermediate school principal insulin use: without correction use Diabetes mellitus type: type 2 (2) HTN (hypertension) Hypertension type: essential hypertension Qualified Code(s): I10 - Essential (primary) hypertension (3) GERD (gastroesophageal reflux disease) Esophagitis presence: esophagitis presence not specified Qualified Code(s): K21.9 - Gastro-esophageal reflux disease without esophagitis (6) CAD (coronary artery disease) Associated angina: with unstable angina Coronary Disease-Associated Artery/Lesion type: [place] artery [place] vs. transplanted heart: [place] heart Qualified Code(s): I25.110 - Atherosclerotic heart disease of [place] coronary artery with unstable angina pectoris (7) Atrial fibrillation Atrial fibrillation type: paroxysmal Qualified Code(s): I48.0 - Paroxysmal atrial fibrillation (8) DM (diabetes mellitus) Diabetes mellitus complication status: without complication Diabetes mellitus middle or intermediate school principal insulin use: without middle or intermediate school principal use Diabetes mellitus type: type 2 Qualified Code(s): E11.9 - Type 2 diabetes mellitus without complications
[2023-01-22] MEDS: BACLOFEN 20 MG TAB PO PRN (15:21)
[2023-01-22] MEDS: rOPINIRole HCL 0.25 MG TABLET PO SCH (20:14)
[2023-01-23] MEDS: amLODIPine BESYLATE 5 MG TAB PO SCH (08:56)
[2023-01-23] MEDS: PANTOprazole 40 MG TAB PO SCH ×2 (08:57→20:13)
[2023-01-23] MEDS: METOPROLOL SUCC 25MG EXT REL TAB PO SCH (08:57)
[2023-01-23] MEDS: APIXABAN 5 MG TABLET PO SCH ×2 (08:57→20:13)
[2023-01-23] MEDS: EZETIMIBE 10 MG TABLET PO SCH (08:58)
[2023-01-23] MEDS: TAMSULOSIN HCL 0.4 MG CAP PO SCH (08:58)
[2023-01-23] MEDS: CLOPIDOGREL BISULFATE 75 MG TAB PO SCH (08:58)
[2023-01-23] MEDS: lisinopril 10 MG TAB PO SCH (08:58)
[2023-01-23] MEDS: BACLOFEN 20 MG TAB PO PRN ×2 (08:58→19:06)
[2023-01-23] MEDS: CEROVITE ADV FORMULA TAB PO SCH (11:35)
--- NOTE | 2023-01-23 13:06 | Hospitalist Progress Note ---
Date of Service January 23, 2023 Assessment & Plan (1) AMS (altered mental status): Plan: Resolved Suspect metabolic encephalopathy possibly from syncope at home. He was found on the floor by his daughter. Initially had no recollection of this event, but now on 01/23 able to tell me full details of him sliding out of the chair after his left hand got caught on chair-couldn't get it out. Doubt syncope. He remembers the mash tub cooker coming and discussions with them, reports he was very frustrated and didn't want to come to the hospital, but his daughter convinced him to come. Blood cultures negative, no evidence of infection, VSS. Brain MRI scan with no changes when compared to 06/2022. Head and neck CTA shows evidence of right external carotid stenosis which does not need intervention at this time. Head CT scan on admission was negative for hemorrhage. No apparent UTI. CK level is normal. No evidence of rhabdomyolysis from being down on the floor. TSH, T3 and T4 all normal (2) HTN (hypertension): Plan: Chronic and stable Continue amlodipine and lisinopril and metoprolol Cardiology was consulted 01/17/23 and stated the bradycardia was likely secondary to chronic therapy with metoprolol succinate-dose reduced to 25mg once daily ok to dc tele (3) GERD (gastroesophageal reflux disease): Plan: Chronic and Stable. Continue Protonix while hospitalized (omeprazole at home) (4) Restless leg syndrome: Plan: Chronic and Stable. Continue ropinirole (5) CKD (chronic kidney disease) stage 3, GFR 30-59 ml/min: Plan: Chronic and Stable. Monitor intake and output. (6) CAD (coronary artery disease): Plan: Chronic and Stable. Continue Plavix, Zetia, metoprolol, lisinopril, Eliquis -s/p CABG x August 2020 (7) Atrial fibrillation: Plan: Presently in sinus rhythm. On Plavix and Eliquis can take off tele (8) DM (diabetes mellitus): Plan: Chronic and stable HgbA1C 6.7 ADA diet. Sliding scale coverage. Plan DVT proph-Eliquis Dispo- Daughter Najma (now POA) CM working on bed approval/availability now to [facility]-not likely till Wednesday Medically stable for discharge. Downgrade to med/surg Admission and Anticipated Discharge Date Admission Date: January 16, 2023 Subjective Feeling well. Has no complaints. Describes the events of the day of admission in full detail. Says he knows he needs rehab but doesn't want to be there longer than a month. No events on tele, remains in SB and NSR Physical Exam Constitutional: WD/WN, vitals as above Respiratory: normal respiratory effort, lungs clear to auscultation Cardiovascular: RRR, no murmur, no edema Gastrointestinal (Abdomen): normal bowel sounds, soft, nontender, no hepatosplenomegaly Neurologic: + focal motor deficit (2/5 strength LUE,4/5 LLE); not confused Psychiatric: A+Ox3, euthymic affect Genitourinary: no testicular masses, no penis abnormality (condom catheter in place) Results & Data Results & Data Vital Signs (Past 12 Hours) Vital Signs Temp Pulse Pulse Resp BP BP Pulse Ox 01/23/23 11:12 36.4 C L 62 18 118/79 98 01/23/23 07:00 58 L 01/23/23 07:19 36.3 C L 72 18 166/74 H 96 01/23/23 02:43 36.5 C 62 18 137/76 97 O2 Del Method 01/23/23 11:12 Room Air 01/23/23 07:00 01/23/23 07:19 Room Air 01/23/23 02:43 Room Air Laboratory Results no labs PG Care Time/CCT Total # of Minutes Spent Total Time Spent with Patient: Total time spent is greater than 50% in coordination of care (as documented) at patient's floor/unit and/or counseling patient: Coding Level of Care Code 50543 SUB INP/OBS CARE 10/21MIN Diagnoses AMS (altered mental status) R41.82 HTN (hypertension) I10 Hypertension type: essential hypertension GERD (gastroesophageal reflux disease) K21.9 Esophagitis presence: esophagitis presence not specified Restless leg syndrome G25.81 CKD (chronic kidney disease) stage 3, GFR 30-59 ml/min N18.30 CAD (coronary artery disease) I25.110 Associated angina: with unstable angina Coronary Disease-Associated Artery/Lesion type: [place] artery [place] vs. transplanted heart: [place] heart Atrial fibrillation I48.0 Atrial fibrillation type: paroxysmal DM (diabetes mellitus) E11.9 Diabetes mellitus type: type 2 Diabetes mellitus terminal system operator insulin use: without fdc use Diabetes mellitus complication status: without complication (2) HTN (hypertension) Hypertension type: essential hypertension Qualified Code(s): I10 - Essential (primary) hypertension (3) GERD (gastroesophageal reflux disease) Esophagitis presence: esophagitis presence not specified Qualified Code(s): K21.9 - Gastro-esophageal reflux disease without esophagitis (6) CAD (coronary artery disease) Associated angina: with unstable angina Coronary Disease-Associated Artery/Lesion type: [place] artery [place] vs. transplanted heart: [place] heart Qualified Code(s): I25.110 - Atherosclerotic heart disease of [place] coronary artery with unstable angina pectoris (7) Atrial fibrillation Atrial fibrillation type: paroxysmal Qualified Code(s): I48.0 - Paroxysmal atrial fibrillation (8) DM (diabetes mellitus) Diabetes mellitus type: type 2 Diabetes mellitus terminal system operator insulin use: without fdc use Diabetes mellitus complication status: without complication Qualified Code(s): E11.9 - Type 2 diabetes mellitus without complications
[2023-01-23] MEDS: rOPINIRole HCL 0.25 MG TABLET PO SCH (20:13)
[2023-01-24] MEDS: CEROVITE ADV FORMULA TAB PO SCH (10:04)
[2023-01-24] MEDS: METOPROLOL SUCC 25MG EXT REL TAB PO SCH (10:04)
[2023-01-24] MEDS: lisinopril 10 MG TAB PO SCH (10:04)
[2023-01-24] MEDS: PANTOprazole 40 MG TAB PO SCH ×2 (10:04→20:53)
[2023-01-24] MEDS: amLODIPine BESYLATE 5 MG TAB PO SCH (10:05)
[2023-01-24] MEDS: APIXABAN 5 MG TABLET PO SCH ×2 (10:05→20:52)
[2023-01-24] MEDS: EZETIMIBE 10 MG TABLET PO SCH (10:05)
[2023-01-24] MEDS: TAMSULOSIN HCL 0.4 MG CAP PO SCH (10:06)
[2023-01-24] MEDS: CLOPIDOGREL BISULFATE 75 MG TAB PO SCH (10:06)
--- NOTE | 2023-01-24 14:12 | Hospitalist Progress Note ---
Date of Service January 24, 2023 Assessment & Plan (1) AMS (altered mental status): Plan: Waxes and wanes but overall improved Suspect metabolic encephalopathy possibly from syncope at home, but also recently prescribed Baclofen 2 days prior to admission. He was found on the floor by his daughter. Initially had no recollection of this event, but now on 01/23 able to tell me full details of him sliding out of the chair after his left hand got caught on chair-couldn't get it out. Doubt syncope. He remembers the salt lifter coming and discussions with them, reports he was very frustrated and didn't want to come to the hospital, but his daughter ml onvinced him to come. Blood cultures negative, no evidence of infection, VSS. Brain MRI scan with no changes when compared to 06/2022. Head and neck CTA shows evidence of right external carotid stenosis which does not need intervention at this time. Head CT scan on admission was negative for hemorrhage. No apparent UTI. CK level is normal. No evidence of rhabdomyolysis from being down on the floor. TSH, T3 and T4 all normal Has had some waxing and waning since admission, was AAOx3 on 01/22 and 01/23, then had sundowning on night of 01/23 and a bit confused on 01/24 He did just start taking baclofen 2 days prior to admission as per review of records and confirmed with daughter--> has received 4 doses in the last 2 days--> very likely could have contributed to his encephalopathy Had some sinus bradycardia on tele and metoprolol dose reduced to 25mg daily, but would not account for syncope most likely -discontinue Baclofen -supportive care -encourage good sleep/wake cycles (2) HTN (hypertension): Plan: Chronic and stable Continue amlodipine and lisinopril and metoprolol Cardiology was consulted 01/17/23 and stated the bradycardia was likely secondary to chronic therapy with metoprolol succinate-dose reduced to 25mg once daily (3) GERD (gastroesophageal reflux disease): Plan: Chronic and Stable. Continue Protonix while hospitalized (omeprazole at home) (4) Restless leg syndrome: Plan: Chronic and Stable. Continue ropinirole (5) CKD (chronic kidney disease) stage 3, GFR 30-59 ml/min: Plan: Chronic and Stable. Monitor intake and output. Last medical records clerk fairly normal (6) CAD (coronary artery disease): Plan: Chronic and Stable. Continue Plavix, Zetia, metoprolol, lisinopril, Eliquis -s/p CABG x August 2020 (7) Atrial fibrillation: Plan: Was in sinus rhythm throughout On Plavix and Eliquis has since been moved off tele (8) DM (diabetes mellitus): Plan: Chronic and stable HgbA1C 6.7 ADA diet. Sliding scale coverage. (9) History of stroke: Plan: With left hemiparesis. No acute issues continue Plavix, Eliquis, Zetia Plan DVT proph-Eliquis Dispo-continued stay while awaiting SNF placement with likelihood of shelter care after rehab Daughter Najma (now POA) -spoke with her on phone on 01/24 CM working on bed approval/availability now to [facility]-not likely till Wednesday Medically stable for discharge Admission and Anticipated Discharge Date Admission Date: January 16, 2023 Subjective Pt was confused overnight as per RN and climbing out of bed, not sleeping much, ripping condom cath off. Seen today early afternoon and kept repeating "wow, I'm just so out of it." Also apologizes for being confused and out of it. No BM documented in 3 days Physical Exam Constitutional: WD/WN, vitals as above Eyes: + anicteric sclerae Respiratory: normal respiratory effort, lungs clear to auscultation Cardiovascular: RRR, no murmur, no edema Gastrointestinal (Abdomen): normal bowel sounds, soft, nontender, no hepatosplenomegaly Neurologic: + focal motor deficit (2/5 strength LUE,4/5 LLE); not confused Psychiatric: Orientation: alert, oriented to person and cooperative; + not oriented to place and + not oriented to time Results & Data Results & Data Vital Signs (Past 12 Hours) Vital Signs Temp Pulse Resp BP Pulse Ox O2 Del Method 01/24/23 07:44 35.4 C L 77 16 159/83 H 99 Room Air PG Care Time/CCT Total # of Minutes Spent Total Time Spent with Patient: Total time spent is greater than 50% in coordination of care (as documented) at patient's floor/unit and/or counseling patient: Coding Level of Care Code 39222 SUB INP/OBS CARE 2/35MIN Diagnoses AMS (altered mental status) R41.82 HTN (hypertension) I10 Hypertension type: essential hypertension GERD (gastroesophageal reflux disease) K21.9 Esophagitis presence: esophagitis presence not specified Restless leg syndrome G25.81 CKD (chronic kidney disease) stage 3, GFR 30-59 ml/min N18.30 CAD (coronary artery disease) I25.110 Associated angina: with unstable angina Coronary Disease-Associated Artery/Lesion type: [place] artery [place] vs. transplanted heart: [place] heart Atrial fibrillation I48.0 Atrial fibrillation type: paroxysmal DM (diabetes mellitus) E11.9 Diabetes mellitus type: type 2 Diabetes mellitus meterman insulin use: without shelter use Diabetes mellitus complication status: without complication History of stroke Z86.73 (2) HTN (hypertension) Hypertension type: essential hypertension Qualified Code(s): I10 - Essential (primary) hypertension (3) GERD (gastroesophageal reflux disease) Esophagitis presence: esophagitis presence not specified Qualified Code(s): K21.9 - Gastro-esophageal reflux disease without esophagitis (6) CAD (coronary artery disease) Associated angina: with unstable angina Coronary Disease-Associated Artery/Lesion type: [place] artery [place] vs. transplanted heart: [place] heart Qualified Code(s): I25.110 - Atherosclerotic heart disease of [place] coronary artery with unstable angina pectoris (7) Atrial fibrillation Atrial fibrillation type: paroxysmal Qualified Code(s): I48.0 - Paroxysmal atrial fibrillation (8) DM (diabetes mellitus) Diabetes mellitus type: type 2 Diabetes mellitus shelter insulin use: without meterman use Diabetes mellitus complication status: without complication Qualified Code(s): E11.9 - Type 2 diabetes mellitus without complications
[2023-01-24] MEDS: SENNA 8.6 MG TAB PO SCH (16:24)
[2023-01-24] MEDS: rOPINIRole HCL 0.25 MG TABLET PO SCH (20:53)
[2023-01-25] MEDS: amLODIPine BESYLATE 5 MG TAB PO SCH (08:39)
[2023-01-25] MEDS: APIXABAN 5 MG TABLET PO SCH ×2 (08:40→20:10)
[2023-01-25] MEDS: EZETIMIBE 10 MG TABLET PO SCH (08:40)
[2023-01-25] MEDS: lisinopril 10 MG TAB PO SCH (08:40)
[2023-01-25] MEDS: CLOPIDOGREL BISULFATE 75 MG TAB PO SCH (08:40)
[2023-01-25] MEDS: PANTOprazole 40 MG TAB PO SCH ×2 (08:41→20:10)
[2023-01-25] MEDS: SENNA 8.6 MG TAB PO SCH (08:41)
[2023-01-25] MEDS: TAMSULOSIN HCL 0.4 MG CAP PO SCH (08:41)
[2023-01-25] MEDS: CEROVITE ADV FORMULA TAB PO SCH (08:41)
[2023-01-25] MEDS: METOPROLOL SUCC 25MG EXT REL TAB PO SCH (08:44)
[2023-01-25 10:55] LABS: Basophils # (auto) 0.07 K/uL (0-0.2); Basophils % (auto) 0.8 %; Eosinophils # (auto) 0.09 K/uL (0-0.50); Hematocrit (blood only) 43.7 % (42.0-52.0); Hemoglobin 14.7 g/dl (14.0-18.0); Immature Granulocytes # (auto) 0.03 K/uL (0.01-0.20); Immature Granulocytes % (auto) 0.3 %; Lymphocytes # (auto) 1.38 K/uL (1.2-3.4); Lymphocytes % (auto) 15.6 %; Mean Corpuscular Hemoglobin 30.6 pg (25.0-34.0); Mean Corpuscular Hgb Conc 33.6 g/dL (32.0-36.0); Mean Platelet Volume 11.8 fL (9.4-12.4); Monocytes # (auto) 0.56 K/uL (0.11-0.59); Monocytes % (auto) 6.3 %; Neutrophils # (auto) 6.72 K/uL (1.40-6.50); Platelet Count 150 K/uL (130-400); RDW Coefficient of Variation 13.2 % (11.5-14.5); RDW Standard Deviation 43.8 fL (36.4-46.3); White Blood Count 8.85 K/ul (4.8-10.8)
[2023-01-25 11:09] LABS: BUN Creatinine Ratio 18.1 (10-20); Creatinine Clr Calc Pharmacy 36.1 ml/min; Est GFR (African American) 47.5 ml/min; Est GFR (Non-African American) 40.9 ml/min
--- NOTE | 2023-01-25 14:29 | Hospitalist Progress Note ---
Date of Service January 25, 2023 Assessment & Plan (1) AMS (altered mental status): Plan: Toxic encephalopathy from baclofen which was present on admission has now resolved. No evidence of infection. Brain MRI scan with no changes when compared to 06/2022. Head and neck CTA shows evidence of right external carotid stenosis which does not need intervention at this time. Head CT scan on admission was negative for hemorrhage. (2) HTN (hypertension): Plan: Chronic and stable. Continue amlodipine, lisinopril and metoprolol . Cardiology was consulted 01/17/23 and stated the bradycardia was likely secondary to chronic therapy with metoprolol succinate- dose reduced to 25mg once daily (3) GERD (gastroesophageal reflux disease): Plan: Chronic and Stable. Continue Protonix while hospitalized (omeprazole at home) (4) Restless leg syndrome: Plan: Chronic and Stable. Continue ropinirole (5) CKD (chronic kidney disease) stage 3, GFR 30-59 ml/min: Plan: Chronic and Stable. Monitor intake and output. Serial labs (6) CAD (coronary artery disease): Plan: Chronic and Stable. Continue Plavix, Zetia, metoprolol, lisinopril, Eliquis. s/p CABG x August 2020 (7) Atrial fibrillation: Plan: Was in sinus rhythm throughout this hospitalization. Treated with Plavix and Eliquis (8) DM (diabetes mellitus): Plan: Chronic and stable. HgbA1C 6.7. ADA diet. Sliding scale coverage. (9) History of stroke: Plan: With left hemiparesis. No acute issues. Continue Plavix, Eliquis, Zetia Plan Anticipate eventual discharge to SNF facility, either [facility] or [facility], when arrangements are finalized Admission and Anticipated Discharge Date Admission Date: January 16, 2023 Subjective Alert and oriented. Toxic encephalopathy has resolved once baclofen was discontinued. He is not happy that he has not been placed in an SNF facility yet. Review of Systems Review of Systems: Constitutional-no fever or chills ENT-no blurred vision, no double vision, no epistaxis, no sore throat Respiratory-no cough, no wheezing, no shortness of breath Cardiac-no palpitations, no chest pain, no syncope GI-no nausea, vomiting, diarrhea, melena, hematochezia -no urinary retention, no urinary incontinence, no dysuria, no hematuria Musculoskeletal-no joint pain, no muscle tenderness Skin-no bruising, no rashes, no pruritus Neuro-chronic left-sided weakness after previous CVA Psych-no depression, no anxiety Physical Exam Physical Exam: General-alert and oriented x3, no fevers, no chills HEENT-head atraumatic and normocephalic, pupils equal and reactive to light, extraocular muscles intact Neck-no lymphadenopathy or thyromegaly, trachea midline Chest-clear to auscultation percussion. No rales wheezing or rhonchi Cardiac-regular rate and rhythm, normal S1 and S2 Abdomen-normal bowel sounds, nontender, no hepatosplenomegaly Extremities-no cyanosis, clubbing, or edema Neuro-cranial nerves II through XII intact, chronic left hemiparesis from previous CVA Psych-normal affect, normal mood Results & Data Results & Data Vital Signs (Past 12 Hours) Vital Signs Temp Pulse Resp BP Pulse Ox O2 Del Method 01/25/23 12:09 36.5 C 55 L 19 142/74 H 93 Room Air 01/25/23 07:56 36.4 C L 56 L 19 131/65 96 Room Air 01/25/23 03:00 36.6 C 54 L 14 117/70 93 Room Air Laboratory Results 01/25/23 10:40 01/25/23 10:40 PG Care Time/CCT Total # of Minutes Spent Total Time Spent with Patient: Total time spent is greater than 50% in coordination of care (as documented) at patient's floor/unit and/or counseling patient: Coding Level of Care Code 99585 SUB INP/OBS CARE 3/50MIN Diagnoses AMS (altered mental status) R41.82 HTN (hypertension) I10 Hypertension type: essential hypertension GERD (gastroesophageal reflux disease) K21.9 Esophagitis presence: esophagitis presence not specified Restless leg syndrome G25.81 CKD (chronic kidney disease) stage 3, GFR 30-59 ml/min N18.30 CAD (coronary artery disease) I25.110 Associated angina: with unstable angina Coronary Disease-Associated Artery/Lesion type: [place] artery [place] vs. 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 transplanted heart: [place] heart Qualified Code(s): I25.110 - Atherosclerotic heart disease of [place] coronary artery with unstable angina pectoris (7) Atrial fibrillation Atrial fibrillation type: paroxysmal Qualified Code(s): I48.0 - Paroxysmal atrial fibrillation (8) DM (diabetes mellitus) Diabetes mellitus type: type 2 Diabetes mellitus watermelon harvesting supervisor insulin use: without jail use Diabetes mellitus complication status: without complication Qualified Code(s): E11.9 - Type 2 diabetes mellitus without complications
[2023-01-25] MEDS: rOPINIRole HCL 0.25 MG TABLET PO SCH (20:09)
[2023-01-26] MEDS: CLOPIDOGREL BISULFATE 75 MG TAB PO SCH (09:07)
[2023-01-26] MEDS: TAMSULOSIN HCL 0.4 MG CAP PO SCH (09:07)
[2023-01-26] MEDS: lisinopril 10 MG TAB PO SCH (09:07)
[2023-01-26] MEDS: PANTOprazole 40 MG TAB PO SCH ×2 (09:07→20:31)
[2023-01-26] MEDS: METOPROLOL SUCC 25MG EXT REL TAB PO SCH (09:07)
[2023-01-26] MEDS: amLODIPine BESYLATE 5 MG TAB PO SCH (09:07)
[2023-01-26] MEDS: EZETIMIBE 10 MG TABLET PO SCH (09:07)
[2023-01-26] MEDS: CEROVITE ADV FORMULA TAB PO SCH (09:07)
[2023-01-26] MEDS: APIXABAN 5 MG TABLET PO SCH ×2 (09:07→20:31)
[2023-01-26] MEDS: SENNA 8.6 MG TAB PO SCH (09:08)
--- NOTE | 2023-01-26 16:52 | Hospitalist Progress Note ---
Date of Service January 26, 2023 Assessment & Plan (1) AMS (altered mental status): Plan: Toxic encephalopathy from baclofen which was present on admission has now resolved. No evidence of infection. Brain MRI scan with no changes when compared to 06/2022. Head and neck CTA shows evidence of right external carotid stenosis which does not need intervention at this time. Head CT scan on admission was negative for hemorrhage. (2) HTN (hypertension): Plan: Chronic and stable. Continue amlodipine, lisinopril and metoprolol . Cardiology was consulted 01/17/23 and stated the bradycardia was likely secondary to chronic therapy with metoprolol succinate- dose has been reduced to 25mg once daily (3) GERD (gastroesophageal reflux disease): Plan: Chronic and Stable. Continue Protonix while hospitalized (omeprazole at home) (4) Restless leg syndrome: Plan: Chronic and Stable. Continue ropinirole (5) CKD (chronic kidney disease) stage 3, GFR 30-59 ml/min: Plan: Chronic and Stable. Monitor intake and output. Serial labs (6) CAD (coronary artery disease): Plan: Chronic and Stable. Continue Plavix, Zetia, metoprolol, lisinopril, Eliquis. s/p CABG x August 2020 (7) Atrial fibrillation: Plan: Was in sinus rhythm throughout this hospitalization. Treated with Plavix and Eliquis (8) DM (diabetes mellitus): Plan: Chronic and stable. HgbA1C 6.7. ADA diet. Sliding scale coverage. (9) History of stroke: Plan: With left hemiparesis. No acute issues. Continue Plavix, Eliquis, Zetia Plan Anticipate eventual discharge to [facility] tomorrow, January 27 Admission and Anticipated Discharge Date Admission Date: January 16, 2023 Subjective Alert and oriented. No new problems. Glucose 134. Anticipate discharge to [facility] tomorrow, January 27 Review of Systems Review of Systems: Constitutional-no fever or chills ENT-no blurred vision, no double vision, no epistaxis, no sore throat Respiratory-no cough, no wheezing, no shortness of breath Cardiac-no palpitations, no chest pain, no syncope GI-no nausea, vomiting, diarrhea, melena, hematochezia -no urinary retention, no urinary incontinence, no dysuria, no hematuria Musculoskeletal-no joint pain, no muscle tenderness Skin-no bruising, no rashes, no pruritus Neuro-chronic left-sided weakness after previous CVA Psych-no depression, no anxiety Physical Exam Physical Exam: General-alert and oriented x3, no fevers, no chills HEENT-head atraumatic and normocephalic, pupils equal and reactive to light, extraocular muscles intact Neck-no lymphadenopathy or thyromegaly, trachea midline Chest-clear to auscultation percussion. No rales wheezing or rhonchi Cardiac-regular rate and rhythm, normal S1 and S2 Abdomen-normal bowel sounds, nontender, no hepatosplenomegaly Extremities-no cyanosis, clubbing, or edema Neuro-cranial nerves II through XII intact, chronic left hemiparesis from previous CVA Psych-normal affect, normal mood Results & Data Results & Data Vital Signs (Past 12 Hours) Vital Signs Temp Pulse Resp BP BP Pulse Ox O2 Del Method 01/26/23 15:24 36.4 C L 72 16 105/63 94 Room Air 01/26/23 08:21 36.5 C 77 16 122/71 94 Room Air Laboratory Results 01/25/23 10:40 01/25/23 10:40 PG Care Time/CCT Total # of Minutes Spent Total Time Spent with Patient: Total time spent is greater than 50% in coordination of care (as documented) at patient's floor/unit and/or counseling patient: Coding Level of Care Code 94809 SUB INP/OBS CARE 2/35MIN Diagnoses AMS (altered mental status) R41.82 HTN (hypertension) I10 Hypertension type: essential hypertension GERD (gastroesophageal reflux disease) K21.9 Esophagitis presence: esophagitis presence not specified Restless leg syndrome G25.81 CKD (chronic kidney disease) stage 3, GFR 30-59 ml/min N18.30 CAD (coronary artery disease) I25.110 Associated angina: with unstable angina Coronary Disease-Associated Artery/Lesion type: [place] artery [place] vs. transplanted heart: [place] heart Atrial fibrillation I48.0 Atrial fibrillation type: paroxysmal DM (diabetes mellitus) E11.9 Diabetes mellitus type: type 2 Diabetes mellitus watermelon harvesting supervisor insulin use: without residential use Diabetes mellitus complication status: without complication History of stroke Z86.73 (2) HTN (hypertension) Hypertension type: essential hypertension Qualified Code(s): I10 - Essential (primary) hypertension (3) GERD (gastroesophageal reflux disease) Esophagitis presence: esophagitis presence not specified Qualified Code(s): K21.9 - Gastro-esophageal reflux disease without esophagitis (6) CAD (coronary artery disease) Associated angina: with unstable angina Coronary Disease-Associated Artery/Lesion type: [place] artery [place] vs. transplanted heart: [place] heart Qualified Code(s): I25.110 - Atherosclerotic heart disease of [place] coronary artery with unstable angina pectoris (7) Atrial fibrillation Atrial fibrillation type: paroxysmal Qualified Code(s): I48.0 - Paroxysmal atrial fibrillation (8) DM (diabetes mellitus) Diabetes mellitus type: type 2 Diabetes mellitus watermelon harvesting supervisor insulin use: witho ut watermelon harvesting supervisor use Diabetes mellitus complication status: without complication Qualified Code(s): E11.9 - Type 2 diabetes mellitus without complications
[2023-01-26] MEDS: rOPINIRole HCL 0.25 MG TABLET PO SCH (20:31)
[2023-01-27] MEDS: CLOPIDOGREL BISULFATE 75 MG TAB PO SCH (09:17)
[2023-01-27] MEDS: amLODIPine BESYLATE 5 MG TAB PO SCH (09:18)
[2023-01-27] MEDS: APIXABAN 5 MG TABLET PO SCH ×2 (09:18→20:17)
[2023-01-27] MEDS: EZETIMIBE 10 MG TABLET PO SCH (09:19)
[2023-01-27] MEDS: lisinopril 10 MG TAB PO SCH (09:19)
[2023-01-27] MEDS: METOPROLOL SUCC 25MG EXT REL TAB PO SCH (09:20)
[2023-01-27] MEDS: CEROVITE ADV FORMULA TAB PO SCH (09:20)
[2023-01-27] MEDS: SENNA 8.6 MG TAB PO SCH (09:21)
[2023-01-27] MEDS: TAMSULOSIN HCL 0.4 MG CAP PO SCH (09:21)
[2023-01-27] MEDS: PANTOprazole 40 MG TAB PO SCH ×2 (09:21→20:17)
--- NOTE | 2023-01-27 12:16 | Discharge Summary ---
Date of Service January 27, 2023 Admission HPI Per Admitting Provider Shailesh Antonio is a pleasant 77yo male with multiple medical problems to include CAD, CKD, prior CVA with left sided hemiplegia, HTN, HLP and DM presenting from home after being found down. Patient is more confused than normal, repeating himself, forgetful and using inappropriate words during the conversation. He was able to provide some history, but was unclear of events preceding arrival. Collateral history obtained from patient's daughter - Katharina Oneil [phone] Patient's daughter found patient down on the floor this afternoon around 17:30. He was naked and confused. He reports that he thinks that he fell around 08:30 (at later times he denies falling). He is uncertain if he lost consciousness. EMS was called and helped the patient get up and brought him to [facility] ER. In the ER he is noted to be confused. He is repeating himself and using inappropriate words. He becomes tearful and emotional at times stating "I just don't know what's going on". Daughter mentioned that he reported some dizziness and a headache as well. Patient with prior CVA with left sided hemiparesis. He ambulates with a walker and has a motorized chair. He lives alone. He has family living locally that helps him manage his medications. His daughter does report that he is non- compliant with his medications. He has some home nursing support. Daughter reports more frequent falls at home as well as some increased forgetfulness. In the ER he is afebrile, HD stable. He denies fever, chills, chest pain, cough, SOB. Denies headache, visual changes, abdominal pain, nausea, vomiting, diarrhea or constipation. Denies focal numbness or weakness. No additional complaints. ER Course: NSS x 1L Principal Diagnosis Baclofen induced toxic encephalopathy Discharge Exam General-alert and oriented x3, no fevers, no chills HEENT-head atraumatic and normocephalic, pupils equal and reactive to light, extraocular muscles intact Neck-no lymphadenopathy or thyromegaly, trachea midline Chest-clear to auscultation percussion. No rales wheezing or rhonchi Cardiac-regular rate and rhythm, normal S1 and S2 Abdomen-normal bowel sounds, nontender, no hepatosplenomegaly Extremities-no cyanosis, clubbing, or edema Neuro-cranial nerves II through XII intact, chronic left hemiparesis from previous CVA Psych-normal affect, normal mood Discharge Data Allergies Allergy/AdvReac Type Severity Reaction Status Date / Time Corticosteroids Allergy Unknown Unknown Verified 01/16/23 19:40 (Glucocorticoids) niacin Allergy Unknown ARTHRALGIAS Verified 01/16/23 19:40 FROM ADVICOR telithromycin Allergy Unknown ARTHRALGIAS Verified 01/16/23 19:40 FROM ADVICOR atorvastatin AdvReac Intermediate Muscle Pain Verified 01/16/23 19:40 lovastatin AdvReac Intermediate ARTHRALGIAS Verified 01/16/23 19:40 FROM ADVICOR Irtfvjt-YWF-YjC Reductase AdvReac Intermediate Muscle Pain Verified 01/16/23 19:40 Inhibitor [Kbeorml-Gls-Ngj Reductase Inhibitor] Consultations 01/16/23 19:41 ED Decision to Admit Stat 01/17/23 08:54 Consult Cardiology Routine Ordered Studies 01/16/23 16:28 CT head/brain wo con Stat 01/16/23 22:08 CTA head w con [CT angio head w con] Urgent CTA neck with con [CT angio neck with con] Urgent 01/17/23 12:29 MRI Brain [MR brain wo con] Urgent Hospital Course (1) AMS (altered mental status): Toxic encephalopathy from baclofen which was present on admission has now resolved. No evidence of infection. Brain MRI scan with no changes when compared to 06/2022. Head and neck CTA shows evidence of right external carotid stenosis which does not need intervention at this time. Head CT scan on admission was negative for hemorrhage. (2) HTN (hypertension): Chronic and stable. Continue amlodipine, lisinopril and metoprolol . Cardiology was consulted 01/17/23 and stated the bradycardia was likely secondary to chronic therapy with metoprolol succinate- dose has been reduced to 25mg once daily (3) GERD (gastroesophageal reflux disease): Chronic and Stable. Continue Protonix while hospitalized (omeprazole at home) (4) Restless leg syndrome: Chronic and Stable. Continue ropinirole (5) CKD (chronic kidney disease) stage 3, GFR 30-59 ml/min: Chronic and Stable. Monitor intake and output. Serial labs (6) CAD (coronary artery disease): Chronic and Stable. Continue Plavix, Zetia, metoprolol, lisinopril, Eliquis. s/p CABG x 3, August 2020 (7) Atrial fibrillation: Was in sinus rhythm throughout this hospitalization. Treated with Plavix and Eliquis (8) DM (diabetes mellitus): Chronic and stable. HgbA1C 6.7. ADA diet. Sliding scale coverage. (9) History of stroke: With left hemiparesis. No acute issues. Continue Plavix, Eliquis, Zetia Plan discharge to [facility] today, January 27 Total Time Total Time Spent Total Time Spent (In Minutes): 40 minutes Discharge Plan Discharge Items Patient Disposition: Transfer [facility] Fac Reason For Visit: AMS Discharge Diagnosis: Baclofen induced toxic encephalopathy Activity: Resume your previous activity Non-emergency contact: Primary Care Provider Call non-emergency contact if: you have any medication questions Follow-up/Referrals: Alejandrina Brooks DO [Primary Care Provider] - Diet: Carb Consistent or DM2 Addtl Attending Provider Instructions: Baclofen has been discontinued Pending Studies at Discharge: No Stand-Alone Forms: My [facility] Skilled Items Patient informed of condition?: Yes DNR: Yes Discharge Level of Care: Skilled Communicable Disease: No Discharge Prognosis: Stable Lines: None Urinary Catheter: No Medications and DC Order Prescriptions: New metoprolol succinate 25 mg Tablet Extended Release 24 Hr 25 mg PO QAM Qty: 0 0RF sennosides [Senokot] 8.6 mg Tablet 8.6 mg PO QAM Qty: 0 0RF Continued ezetimibe 10 mg tablet 10 mg PO QAM clopidogrel 75 mg Tablet 75 mg PO QAM Qty: 30 0RF omeprazole 20 mg capsule,delayed release(DR/EC) 20 mg PO BID multivitamin with minerals Tablet 1 tab PO DAILY amlodipine 2.5 mg tablet 2.5 mg PO DAILY tamsulosin 0.4 mg capsule 0.4 mg PO DAILY ropinirole 0.5 mg tablet 0.5 mg PO DAILY lisinopril 10 mg tablet 10 mg PO DAILY Eliquis 5 mg tablet 5 mg PO BID Discontinued metoprolol succinate 25 mg Tablet Extended Release 24 Hr 25 mg PO BID baclofen 20 mg tablet 20 mg PO TID PRN (Reason: Cramps) Discharge Orders: Discharge Order (Routine); Ordered 01/27/23 Ordered By: Dax Cutler/Other Patient Handouts: Managing Type 2 Diabetes Admission Data Admit Date/Time: 01/16/23 20:08 Attending Provider: Dax Worrell Admit Provider: Kim Giang Primary Care Provider: Alejandrina Brooks Other Providers: [facility] ; [place] ; Kim Giang ; Oscar Waterman ; Scar Strauss ; Horacio Penaloza ; Asad Alford ; Jayesh Randolph ; Addison Díaz Jr ; Kin White ; Jennifer Barrios ; Alexandra Coles ; Jose M Agudelo ; Inocente Mcpherson ; Dax Oliver ; Dottie Ross ; Leora Barone ; Rahat Campos ; Eulalio Patel ; Asad Macdonald V. ; [facility] Coding Level of Care Code 13280 INP/OBS DISCH >30 MIN Diagnoses AMS (altered mental status) R41.82 HTN (hypertension) I10 Hypertension type: essential hypertension GERD (gastroesophageal reflux disease) K21.9 Esophagitis presence: esophagitis presence not specified Restless leg syndrome G25.81 CKD (chronic kidney disease) stage 3, GFR 30-59 ml/min N18.30 CAD (coronary artery disease) I25.110 Associated angina: with unstable angina Coronary Disease-Associated Artery/Lesion type: [place] artery [place] vs. transplanted heart: [place] heart Atrial fibrillation I48.0 Atrial fibrillation type: paroxysmal DM (diabetes mellitus) E11.9 Diabetes mellitus type: type 2 Diabetes mellitus group home insulin use: without group home use Diabetes mellitus complication status: without complication History of stroke Z86.73
[2023-01-27] MEDS: rOPINIRole HCL 0.25 MG TABLET PO SCH (20:18)
[2023-01-28] MEDS: lisinopril 10 MG TAB PO SCH (08:14)
[2023-01-28] MEDS: TAMSULOSIN HCL 0.4 MG CAP PO SCH (08:14)
[2023-01-28] MEDS: APIXABAN 5 MG TABLET PO SCH ×2 (08:14→20:10)
[2023-01-28] MEDS: PANTOprazole 40 MG TAB PO SCH ×2 (08:14→20:10)
[2023-01-28] MEDS: CLOPIDOGREL BISULFATE 75 MG TAB PO SCH (08:14)
[2023-01-28] MEDS: CEROVITE ADV FORMULA TAB PO SCH (08:15)
[2023-01-28] MEDS: METOPROLOL SUCC 25MG EXT REL TAB PO SCH (08:15)
[2023-01-28] MEDS: EZETIMIBE 10 MG TABLET PO SCH (08:15)
[2023-01-28] MEDS: SENNA 8.6 MG TAB PO SCH (08:15)
[2023-01-28] MEDS: amLODIPine BESYLATE 5 MG TAB PO SCH (08:15)
--- NOTE | 2023-01-28 16:21 | Hospitalist Progress Note ---
Date of Service January 28, 2023 Assessment & Plan (1) AMS (altered mental status): Plan: Toxic encephalopathy from baclofen which was present on admission has now resolved. No evidence of infection. Brain MRI scan with no changes when compared to 06/2022. Head and neck CTA shows evidence of right external carotid stenosis which does not need intervention at this time. Head CT scan on admission was negative for hemorrhage. (2) HTN (hypertension): Plan: Chronic and stable. Continue amlodipine, lisinopril and metoprolol . Cardiology was consulted 01/17/23 and stated the bradycardia was likely secondary to chronic therapy with metoprolol succinate- dose has been reduced to 25mg once daily (3) GERD (gastroesophageal reflux disease): Plan: Chronic and Stable. Continue Protonix while hospitalized (omeprazole at home) (4) Restless leg syndrome: Plan: Chronic and Stable. Continue ropinirole (5) CKD (chronic kidney disease) stage 3, GFR 30-59 ml/min: Plan: Chronic and Stable. Monitor intake and output. Serial labs (6) CAD (coronary artery disease): Plan: Chronic and Stable. Continue Plavix, Zetia, metoprolol, lisinopril, Eliquis. s/p CABG x August 2020 (7) Atrial fibrillation: Plan: Was in sinus rhythm throughout this hospitalization. Treated with Plavix and Eliquis (8) DM (diabetes mellitus): Plan: Chronic and stable. HgbA1C 6.7. ADA diet. Sliding scale coverage. (9) History of stroke: Plan: With left hemiparesis. No acute issues. Continue Plavix, Eliquis, Zetia Plan To be determined. Insurance denied [facility]ie [facility] referral. Admission and Anticipated Discharge Date Admission Date: January 16, 2023 Subjective Alert and oriented. No new problems. Apparently the [facility] [place] referral was denied by his insurance company who stated they never received the clinical information. However, case management states it was faxed 3 separate times and they have the fax receipts to prove it. Review of Systems Review of Systems: Constitutional-no fever or chills ENT-no blurred vision, no double vision, no epistaxis, no sore throat Respiratory-no cough, no wheezing, no shortness of breath Cardiac-no palpitations, no chest pain, no syncope GI-no nausea, vomiting, diarrhea, melena, hematochezia -no urinary retention, no urinary incontinence, no dysuria, no hematuria Musculoskeletal-no joint pain, no muscle tenderness Skin-no bruising, no rashes, no pruritus Neuro-chronic left-sided weakness after previous CVA Psych-no depression, no anxiety Physical Exam Physical Exam: General-alert and oriented x3, no fevers, no chills HEENT-head atraumatic and normocephalic, pupils equal and reactive to light, extraocular muscles intact Neck-no lymphadenopathy or thyromegaly, trachea midline Chest-clear to auscultation percussion. No rales wheezing or rhonchi Cardiac-regular rate and rhythm, normal S1 and S2 Abdomen-normal bowel sounds, nontender, no hepatosplenomegaly Extremities-no cyanosis, clubbing, or edema Neuro-cranial nerves II through XII intact, chronic left hemiparesis from previous CVA Psych-normal affect, normal mood Results & Data Results & Data Vital Signs (Past 12 Hours) Vital Signs Temp Pulse Resp BP Pulse Ox O2 Del Method 01/28/23 16:06 36.6 C 69 16 107/67 98 Room Air 01/28/23 07:55 36.4 C L 64 16 124/71 95 Room Air Laboratory Results 01/25/23 10:40 01/25/23 10:40 PG Care Time/CCT Total # of Minutes Spent Total Time Spent with Patient: Total time spent is greater than 50% in coordination of care (as documented) at patient's floor/unit and/or counseling patient: Coding Level of Care Code 93693 SUB INP/OBS CARE 2/35MIN Diagnoses AMS (altered mental status) R41.82 HTN (hypertension) I10 Hypertension type: essential hypertension GERD (gastroesophageal reflux disease) K21.9 Esophagitis presence: esophagitis presence not specified Restless leg syndrome G25.81 CKD (chronic kidney disease) stage 3, GFR 30-59 ml/min N18.30 CAD (coronary artery disease) I25.110 Associated angina: with unstable angina Coronary Disease-Associated Artery/Lesion type: [place] artery [place] vs. transplanted heart: [place] heart Atrial fibrillation I48.0 Atrial fibrillation type: paroxysmal DM (diabetes mellitus) E11.9 Diabetes mellitus type: type 2 Diabetes mellitus tank terminal gauger insulin use: without tank terminal gauger use Diabetes mellitus complication status: without complication History of stroke Z86.73 (2) HTN (hypertension) Hypertension type: essential hypertension Qualified Code(s): I10 - Essential (primary) hypertension (3) GERD (gastroesophageal reflux disease) Esophagitis presence: esophagitis presence not specified Qualified Code(s): K21.9 - Gastro-esophageal reflux disease without esophagitis (6) CAD (coronary artery disease) Associated angina: with unstable angina Coronary Disease-Associated Artery/Lesion type: [place] artery [place] vs. transplanted heart: [place] heart Qualified Code(s): I25.110 - Atherosclerotic heart disease of [place] coronary artery with unstable angina pectoris (7) Atrial fibrillation Atrial fibrillation type: paroxysmal Qualified Code(s): I48.0 - Paroxysmal atrial fibrillation (8) DM (diabetes mellitus) Diabetes mellitus type: type 2 Diabetes mellitus nursing home insulin use: without nursing home use Diabetes mellitus complication status: without complication Qualified Code(s): E11.9 - Type 2 diabetes mellitus without complications
[2023-01-28] MEDS: rOPINIRole HCL 0.25 MG TABLET PO SCH (20:10)
[2023-01-29] MEDS: CEROVITE ADV FORMULA TAB PO SCH (08:17)
[2023-01-29] MEDS: APIXABAN 5 MG TABLET PO SCH (08:17)
[2023-01-29] MEDS: PANTOprazole 40 MG TAB PO SCH (08:17)
[2023-01-29] MEDS: SENNA 8.6 MG TAB PO SCH (08:18)
[2023-01-29] MEDS: EZETIMIBE 10 MG TABLET PO SCH (08:18)
[2023-01-29] MEDS: TAMSULOSIN HCL 0.4 MG CAP PO SCH (08:18)
[2023-01-29] MEDS: CLOPIDOGREL BISULFATE 75 MG TAB PO SCH (08:18)
[2023-01-29] MEDS: lisinopril 10 MG TAB PO SCH (08:18)
[2023-01-29] MEDS: amLODIPine BESYLATE 5 MG TAB PO SCH (08:18)
[2023-01-29] MEDS: METOPROLOL SUCC 25MG EXT REL TAB PO SCH (09:34)
--- NOTE | 2023-01-29 14:50 | Hospitalist Progress Note ---
Date of Service January 29, 2023 Assessment & Plan (1) AMS (altered mental status): Plan: Toxic encephalopathy from baclofen which was present on admission has now resolved. No evidence of infection. Brain MRI scan with no changes when compared to 06/2022. Head and neck CTA shows evidence of right external carotid stenosis which does not need intervention at this time. Head CT scan on admission was negative for hemorrhage. (2) HTN (hypertension): Plan: Chronic and stable. Continue amlodipine, lisinopril and metoprolol . Cardiology was consulted 01/17/23 and stated the bradycardia was likely secondary to chronic therapy with metoprolol succinate- dose has been reduced to 25mg once daily (3) GERD (gastroesophageal reflux disease): Plan: Chronic and Stable. Continue Protonix while hospitalized (omeprazole at home) (4) Restless leg syndrome: Plan: Chronic and Stable. Continue ropinirole (5) CKD (chronic kidney disease) stage 3, GFR 30-59 ml/min: Plan: Chronic and Stable. Monitor intake and output. Serial labs (6) CAD (coronary artery disease): Plan: Chronic and Stable. Continue Plavix, Zetia, metoprolol, lisinopril, Eliquis. s/p CABG x August 2020 (7) Atrial fibrillation: Plan: Was in sinus rhythm throughout this hospitalization. Treated with Plavix and Eliquis (8) DM (diabetes mellitus): Plan: Chronic and stable. HgbA1C 6.7. ADA diet. Sliding scale coverage. (9) History of stroke: Plan: With left hemiparesis. No acute issues. Continue Plavix, Eliquis, Zetia Plan Case management is continuing appeal process with the insurance company to get him into [facility]. Admission and Anticipated Discharge Date Admission Date: January 16, 2023 Subjective Alert and oriented. No new problems. Case management is pursuing appeal process with insurance company to get him into an SNF which he definitely needs Review of Systems Review of Systems: Constitutional-no fever or chills ENT-no blurred vision, no double vision, no epistaxis, no sore throat Respiratory-no cough, no wheezing, no shortness of breath Cardiac-no palpitations, no chest pain, no syncope GI-no nausea, vomiting, diarrhea, melena, hematochezia -no urinary retention, no urinary incontinence, no dysuria, no hematuria Musculoskeletal-no joint pain, no muscle tenderness Skin-no bruising, no rashes, no pruritus Neuro-chronic left-sided weakness after previous CVA Psych-no depression, no anxiety Physical Exam Physical Exam: General-alert and oriented x3, no fevers, no chills HEENT-head atraumatic and normocephalic, pupils equal and reactive to light, extraocular muscles intact Neck-no lymphadenopathy or thyromegaly, trachea midline Chest-clear to auscultation percussion. No rales wheezing or rhonchi Cardiac-regular rate and rhythm, normal S1 and S2 Abdomen-normal bowel sounds, nontender, no hepatosplenomegaly Extremities-no cyanosis, clubbing, or edema Neuro-cranial nerves II through XII intact, chronic left hemiparesis from previous CVA Psych-normal affect, normal mood Results & Data Results & Data Vital Signs (Past 12 Hours) Vital Signs Temp Pulse Pulse Resp BP Pulse Ox O2 Del Method 01/29/23 09:34 75 01/29/23 07:22 36.7 C 57 L 16 119/66 93 Room Air Laboratory Results 01/25/23 10:40 01/25/23 10:40 PG Care Time/CCT Total # of Minutes Spent Total Time Spent with Patient: Total time spent is greater than 50% in coordination of care (as documented) at patient's floor/unit and/or counseling patient: Coding Level of Care Code 91501 SUB INP/OBS CARE 2/35MIN Diagnoses AMS (altered mental status) R41.82 HTN (hypertension) I10 Hypertension type: essential hypertension GERD (gastroesophageal reflux disease) K21.9 Esophagitis presence: esophagitis presence not specified Restless leg syndrome G25.81 CKD (chronic kidney disease) stage 3, GFR 30-59 ml/min N18.30 CAD (coronary artery disease) I25.110 Associated angina: with unstable angina Coronary Disease-Associated Artery/Lesion type: [place] artery [place] vs. transplanted heart: [place] heart Atrial fibrillation I48.0 Atrial fibrillation type: paroxysmal DM (diabetes mellitus) E11.9 Diabetes mellitus type: type 2 Diabetes mellitus mcc insulin use: without mcc use Diabetes mellitus complication status: without complication History of stroke Z86.73 (2) HTN (hypertension) Hypertension type: essential hypertension Qualified Code(s): I10 - Essential (primary) hypertension (3) GERD (gastroesophageal reflux disease) Esophagitis presence: esophagitis presence not specified Qualified Code(s): K21.9 - Gastro-esophageal reflux disease without esophagitis (6) CAD (coronary artery disease) Associated angina: with unstable angina Coronary Disease-Associated Artery/Lesion type: [place] artery [place] vs. transplanted heart: [place] heart Qualified Code(s): I25.110 - Atherosclerotic heart disease of [place] coronary artery with unstable angina pectoris (7) Atrial fibrillation Atrial fibrillation type: paroxysmal Qualified Code(s): I48.0 - Paroxysmal atrial fibrillation (8) DM (diabetes mellitus) Diabetes mellitus type: type 2 Diabetes mellitus mcc insulin use: without buttermaker helper use Diabetes mellitus complication status: without complication Qualified Code(s): E11.9 - Type 2 diabetes mellitus without c omplications
--- NOTE | 2023-01-29 15:49 | Discharge Summary ---
Date of Service January 29, 2023 Admission HPI Per Admitting Provider Shailesh Antonio is a pleasant 77yo male with multiple medical problems to include CAD, CKD, prior CVA with left sided hemiplegia, HTN, HLP and DM presenting from home after being found down. Patient is more confused than normal, repeating himself, forgetful and using inappropriate words during the conversation. He was able to provide some history, but was unclear of events preceding arrival. Collateral history obtained from patient's daughter - Katharina Oneil [phone] Patient's daughter found patient down on the floor this afternoon around 17:30. He was naked and confused. He reports that he thinks that he fell around 08:30 (at later times he denies falling). He is uncertain if he lost consciousness. EMS was called and helped the patient get up and brought him to [facility] ER. In the ER he is noted to be confused. He is repeating himself and using inappropriate words. He becomes tearful and emotional at times stating "I just don't know what's going on". Daughter mentioned that he reported some dizziness and a headache as well. Patient with prior CVA with left sided hemiparesis. He ambulates with a walker and has a motorized chair. He lives alone. He has family living locally that helps him manage his medications. His daughter does report that he is non- compliant with his medications. He has some home nursing support. Daughter reports more frequent falls at home as well as some increased forgetfulness. In the ER he is afebrile, HD stable. He denies fever, chills, chest pain, cough, SOB. Denies headache, visual changes, abdominal pain, nausea, vomiting, diarrhea or constipation. Denies focal numbness or weakness. No additional complaints. ER Course: NSS x 1L Principal Diagnosis Baclofen induced toxic encephalopathy Discharge Exam General-alert and oriented x3, no fevers, no chills HEENT-head atraumatic and normocephalic, pupils equal and reactive to light, extraocular muscles intact Neck-no lymphadenopathy or thyromegaly, trachea midline Chest-clear to auscultation percussion. No rales wheezing or rhonchi Cardiac-regular rate and rhythm, normal S1 and S2 Abdomen-normal bowel sounds, nontender, no hepatosplenomegaly Extremities-no cyanosis, clubbing, or edema Neuro-cranial nerves II through XII intact, chronic left hemiparesis from previous CVA Psych-normal affect, normal mood Discharge Data Allergies Allergy/AdvReac Type Severity Reaction Status Date / Time Corticosteroids Allergy Unknown Unknown Verified 01/16/23 19:40 (Glucocorticoids) niacin Allergy Unknown ARTHRALGIAS Verified 01/16/23 19:40 FROM ADVICOR telithromycin Allergy Unknown ARTHRALGIAS Verified 01/16/23 19:40 FROM ADVICOR atorvastatin AdvReac Intermediate Muscle Pain Verified 01/16/23 19:40 lovastatin AdvReac Intermediate ARTHRALGIAS Verified 01/16/23 19:40 FROM ADVICOR Fadztha-LGR-RpM Reductase AdvReac Intermediate Muscle Pain Verified 01/16/23 19:40 Inhibitor [Artyear-Uur-Ntb Reductase Inhibitor] Consultations 01/16/23 19:41 ED Decision to Admit Stat 01/17/23 08:54 Consult Cardiology Routine Ordered Studies 01/16/23 16:28 CT head/brain wo con Stat 01/16/23 22:08 CTA head w con [CT angio head w con] Urgent CTA neck with con [CT angio neck with con] Urgent 01/17/23 12:29 MRI Brain [MR brain wo con] Urgent Hospital Course (1) AMS (altered mental status): Toxic encephalopathy from baclofen which was present on admission has now resolved. No evidence of infection. Brain MRI scan with no changes when compared to 06/2022. Head and neck CTA shows evidence of right external carotid stenosis which does not need intervention at this time. Head CT scan on admission was negative for hemorrhage. (2) HTN (hypertension): Chronic and stable. Continue amlodipine, lisinopril and metoprolol . Cardiology was consulted 01/17/23 and stated the bradycardia was likely secondary to chronic therapy with metoprolol succinate- dose has been reduced to 25mg once daily (3) GERD (gastroesophageal reflux disease): Chronic and Stable. Continue Protonix while hospitalized (omeprazole at home) (4) Restless leg syndrome: Chronic and Stable. Continue ropinirole (5) CKD (chronic kidney disease) stage 3, GFR 30-59 ml/min: Chronic and Stable. Monitor intake and output. Serial labs (6) CAD (coronary artery disease): Chronic and Stable. Continue Plavix, Zetia, metoprolol, lisinopril, Eliquis. s/p CABG x 3, August 2020 (7) Atrial fibrillation: Was in sinus rhythm throughout this hospitalization. Treated with Plavix and Eliquis (8) DM (diabetes mellitus): Chronic and stable. HgbA1C 6.7. ADA diet. Sliding scale coverage. (9) History of stroke: With left hemiparesis. No acute issues. Continue Plavix, Eliquis, Zetia Plan Case management is continuing appeal process with the insurance company to get him into [facility]. Total Time Total Time Spent Total Time Spent (In Minutes): 40 minutes Discharge Plan Discharge Items Patient Disposition: Transfer [facility] Reason For Visit: AMS Discharge Diagnosis: Baclofen induced toxic encephalopathy Activity: Resume your previous activity Non-emergency contact: Primary Care Provider Call non-emergency contact if: you have any medication questions Follow-up/Referrals: Alejandrina Brooks DO [Primary Care Provider] - Diet: Carb Consistent or DM2 Addtl Attending Provider Instructions: Baclofen has been discontinued Pending Studies at Discharge: No Stand-Alone Forms: [facility] Skilled Items Patient informed of condition?: Yes DNR: Yes Discharge Level of Care: Skilled Communicable Disease: No Discharge Prognosis: Stable Lines: None Urinary Catheter: No Medications and DC Order Prescriptions: New metoprolol succinate 25 mg Tablet Extended Release 24 Hr 25 mg PO QAM Qty: 0 0RF sennosides [Senokot] 8.6 mg Tablet 8.6 mg PO QAM Qty: 0 0RF Continued ezetimibe 10 mg tablet 10 mg PO QAM clopidogrel 75 mg Tablet 75 mg PO QAM Qty: 30 0RF omeprazole 20 mg capsule,delayed release(DR/EC) 20 mg PO BID multivitamin with minerals Tablet 1 tab PO DAILY amlodipine 2.5 mg tablet 2.5 mg PO DAILY tamsulosin 0.4 mg capsule 0.4 mg PO DAILY ropinirole 0.5 mg tablet 0.5 mg PO DAILY lisinopril 10 mg tablet 10 mg PO DAILY Eliquis 5 mg tablet 5 mg PO BID Discontinued metoprolol succinate 25 mg Tablet Extended Release 24 Hr 25 mg PO BID baclofen 20 mg tablet 20 mg PO TID PRN (Reason: Cramps) Discharge Orders: Discharge Order (Routine); Ordered 01/29/23 Ordered By: Dax Cutler/Other Patient Handouts: Managing Type 2 Diabetes Admission Data Admit Date/Time: 01/16/23 20:08 Attending Provider: Dax Worrell Admit Provider: Kim Giang Primary Care Provider: Alejandrina Brooks Other Providers: [facility],Home Healthcare ; [place] ; Kim Giang ; Oscar Waterman ; Scar Strauss ; Horacio Penaloza ; Asad Alford ; Jayesh Randolph ; Addison Díaz Jr ; Kin White ; Jennifer Barrios ; Alexandra Coles ; Jose M Agudelo ; Inocente Mcpherson ; Dax Oliver ; Dottie Ross ; Leora Barone ; Rahat Campos ; Eulalio Patel ; Asad Macdonald V. ; [facility] Coding Level of Care Code 49713 INP/OBS DISCH >30 MIN Diagnoses AMS (altered mental status) R41.82 HTN (hypertension) I10 Hypertension type: essential hypertension GERD (gastroesophageal reflux disease) K21.9 Esophagitis presence: esophagitis presence not specified Restless leg syndrome G25.81 CKD (chronic kidney disease) stage 3, GFR 30-59 ml/min N18.30 CAD (coronary artery disease) I25.110 Associated angina: with unstable angina Coronary Disease-Associated Artery/Lesion type: [place] artery [place] vs. transplanted heart: [place] heart Atrial fibrillation I48.0 Atrial fibrillation type: paroxysmal DM (diabetes mellitus) E11.9 Diabetes mellitus type: type 2 Diabetes mellitus longterm insulin use: without longterm use Diabetes mellitus complication status: without complication History of stroke Z86.73
== END 2023-01-29 18:10 | DRG 92 ==
LOC: ED 15:28 → SUATTDRO 20:08 → 2N 20:08 → 3N 01-25 21:36

== ENCOUNTER 2023-02-18 16:00 | Inpatient (IN) ==
[2023-02-18] MEDS ORDERED: SODIUM CHLORIDE 0.9% 1000ML 500 ML IV ONE ×2 (16:09→17:34)
[2023-02-18] MEDS ORDERED: CEFEPIME 2,000 MG/20 ML VIAL IV STA (16:09)
[2023-02-18] MEDS ORDERED: ACETAMINOPHEN 1,000 MG/100 ML VIAL IV STA (16:09)
[2023-02-18] MEDS ORDERED: SODIUM CHLORIDE 0.9% 500 ML IV SCH (16:15)
--- NOTE | 2023-02-18 16:15 | Emergency Department Note ---
Impression & Plan Altered mental status, Acute dehydration, Leukocytosis, Urinary incontinence ED Provider Note NAME: CAIN NAZARIO AGE: 77 SEX: M : 1945 ARRIVES VIA: Ambulance INFORMANT: [Patient][ems, nursing] ED PROVIDER(S): [Bryant Mclaughlin MD] CHIEF COMPLAINT: Confusion HISTORY OF PRESENT ILLNESS: The patient is a 77-year-old male with a history of A-fib. He has had a stroke and has residual left hemiparesis. He lives alone. He is on Eliquis. The patient apparently was on the floor 2 days ago and called EMS. They helped him up and he seemed fine. Today, the patient was found by his family confused and altered and moaning. As per nursing staff, the patient was incontinent of urine. The patient is a poor historian. He is moaning and says he is in pain but cannot identify exactly where his pain is. On exam, the patient appears dehydrated, he is tachycardic, he appears oriented only to person. Given the circumstances, no further history obtainable. PMHx/PSHx: See Below SOCIAL HISTORY: See Below. PHYSICAL EXAM: GENERAL: Patient is in mild distress, continual moaning. HEENT: No acute trauma, normocephalic atraumatic, mucous membranes very dry, no nasal congestion. NECK: No stridor, no adenopathy, no meningismus, trachea is midline. LUNGS: Clear to auscultation bilaterally when listening anterior, no wheeze, no rhonchi, breath sounds equal. HEART: Tachycardic, no murmurs heard. Rhythm is regular. ABDOMEN: Soft, nontender, no peritonitis. No obvious abdominal distention. EXTREMITIES: No cyanosis or edema, full range of motion of all the joints without pain or difficulty, no signs for acute trauma. NEUROLOGIC: Awake, moves all extremities, moaning, oriented only to person. Cannot really follow commands. Poor historian SKIN: No rash, no jaundice, no diaphoresis. DIFFERENTIAL DIAGNOSIS: Sepsis or bacteremia, intracranial bleeding, CVA, renal or liver failure, obstruction, urinary obstruction, UTI, pneumonia, medication reaction, among others. EMERGENCY DEPARTMENT COURSE/PROCEDURES: Prior/Outside records reviewed: EMS notes, recent discharge summary. ECG per my interpretation: Indication was altered mental state. The ECG shows what appears to be a sinus tachycardia with a rate of 126. There is some baseline artifact. No obvious ST elevation. No PVCs. The QTc is 451. Continuous Cardiac Monitoring per my interpretation: An order was placed for continuous cardiac monitoring. The monitor shows a rate of 125 with sinus tachycardia. Critical Care Note: I have personally spent 46 minutes of critical care time in the direct management of this patient. This includes bedside care, interpretation of diagnostic studies, and testing, discussion with consultants, patient, and family members, and other required patient management activities. This 46 minutes is in excess of all separately billable procedures. MEDICAL DECISION MAKING: There is a mild leukocytosis, this could be consistent with infection or the stress of his presentation. There was a normal hemoglobin and platelet count. No coagulopathy. No renal failure or significant electrolyte abnormality. Lactic acid level was not elevated making severe sepsis less likely. Alk phos slightly elevated, the remaining liver enzymes were unremarkable. Ammonia level was not elevated. The patient appeared to be in a euthyroid state. ECG shows a sinus tachycardia, no obvious ischemia. Cardiac enzyme testing x1 is slightly elevated. This troponin elevation could be from cardiac injury or potentially just mismatch. Urinalysis showed some blood, no obvious infection. COVID test returned negative. Chest film per my review did not show mediastinal widening, pneumonia or pneumothorax. Brain CT showed some chronic change, no acute bleed or mass effect. Abdominal and pelvis CT showed a larger gallbladder but there was no gallbladder inflammation. No bowel obstruction, no urinary obstruction. On exam, the patient was moaning, he was confused/altered. He appeared dehydrated. He was tachycardic and hypertensive. The patient was aggressively managed. He did receive IV saline, 1.5 L. He was given IV metoprolol. The patient received IV Tylenol and IV cefepime. With the above treatment, the patient appears improved. His blood pressure is improved, his heart rate is improved, he seems to be resting comfortably. At this point, the cause for the altered mental status is unclear. He has had issues similar to today's presentation from medication interactions and certainly, this is again a possibility. The patient requires a hospital stay. I did speak with case management, the on- call hospitalist was consulted. DISPOSITION: Patient's presentation and findings warrant a hospital stay. Past Med/Surg History Medical History Ambulatory dysfunction CAD (coronary artery disease) CHI (closed head injury) CKD (chronic kidney disease) stage 3, GFR 30-59 ml/min CVA (cerebral vascular accident) january 2021 Depression Diaphragmatic paralysis Diarrhea Elevated lipase Fall Generalized weakness GERD (gastroesophageal reflux disease) History of stroke HTN (hypertension) Hypercholesteremia Hypertriglyceridemia Hypotension Left rib fracture Physical deconditioning Postoperative atrial fibrillation Presence of arterial stent L leg, unable to relate exact location. Pressure ulcer of right buttock Restless leg syndrome Stroke TIA (transient ischemic attack) Type II diabetes mellitus Surgical History H/O knee surgery stent behind left knee 2017 H/O vasectomy History of angioplasty of peripheral vessel LLE angiogram with [employer]INEER popliteal 05/23/2018 Hx of colonoscopy 2017 S/P CABG x 3 Family History Grandfather Colorectal cancer Mother Diabetes Hypertension Brother Stroke Social History Smoking Status: Never smoker Tobacco Type: Cigarettes Second Hand Exposure: No; Do You Dip or Chew Tobacco: No; Hx Alcohol Use: Yes Alcohol type: beer Hx Substance Use: No Preferred Language: Serbian Communication Ability: Impaired Communication Ability Comment: Aphasia. Neurology Specialist Required: No Beliefs That Will Affect Care: None marital status: Single Current Living Situation: Alone Current Living Situation Comment: JUST DISCHARGED FROM [facility] TO HOME ALONE current occupational status: retired Feels Safe at Home: Yes Assistive Devices: Scooter/Electric Scooter and Walker Allergies Allergies Allergy/AdvReac Type Severity Reaction Status Date / Time Corticosteroids Allergy Unknown Unknown Verified 01/16/23 19:40 (Glucocorticoids) niacin Allergy Unknown ARTHRALGIAS Verified 01/16/23 19:40 FROM ADVICOR telithromycin Allergy Unknown ARTHRALGIAS Verified 01/16/23 19:40 FROM ADVICOR atorvastatin AdvReac Intermediate Muscle Pain Verified 01/16/23 19:40 lovastatin AdvReac Intermediate ARTHRALGIAS Verified 01/16/23 19:40 FROM ADVICOR Lnythex-KEF-UgF Reductase AdvReac Intermediate Muscle Pain Verified 01/16/23 19:40 Inhibitor [Wzybbwu-Iac-Tff Reductase Inhibitor] Home Meds Home Medications Medication Instructions Recorded Confirmed ezetimibe 10 mg tablet 10 mg PO QAM 11/11/19 01/16/23 apixaban 5 mg tablet (Eliquis) 5 mg PO BID 01/17/21 01/16/23 multivitamin with minerals 1 tab PO DAILY 03/16/21 01/16/23 omeprazole 20 mg capsule,delayed 20 mg PO BID 03/16/21 01/16/23 release amlodipine 2.5 mg tablet 2.5 mg PO DAILY 12/09/22 01/16/23 lisinopril 10 mg tablet 10 mg PO DAILY 01/16/23 01/16/23 ropinirole 0.5 mg tablet 0.5 mg PO DAILY 01/16/23 01/16/23 tamsulosin 0.4 mg capsule 0.4 mg PO DAILY 01/16/23 01/16/23 Previous Rx's Medication Instructions Recorded clopidogrel 75 mg tablet 75 mg PO QAM #30 tabs 01/29/21 metoprolol succinate 25 mg 25 mg PO QAM #0 tabs 01/27/23 tablet,extended release 24 hr sennosides 8.6 mg tablet (Senokot) 8.6 mg PO QAM #0 tabs 01/27/23 Results & Data (ED) Vital Signs Vital Signs - 24 hr 02/18/23 16:11 02/18/23 16:00 02/18/23 16:04 Temperature 36.4 C L Temperature Source Oral Pulse Rate 125 H 126 H 125 H Pulse Rate from SpO2 Sensor Pulse Rhythm Regular Regular Respiratory Rate 22 22 Respiratory Effort / Characteristics Non-Labored Respiratory Depth Normal Respiratory Pattern Regular Blood Pressure 179/111 H Blood Pressure Mean 133 Pulse Oximetry 98 98 Oxygen Delivery Method Room Air Room Air Sepsis Recent Fever Within 48 Hours No Sepsis New/Unexplained Change in Mental Status Yes Sepsis Action Taken by Nursing Physician Notified 02/18/23 16:37 02/18/23 16:37 02/18/23 16:41 Temperature Temperature Source Pulse Rate 120 H 123 H 94 H Pulse Rate from SpO2 Sensor 123 H 95 H Pulse Rhythm Respiratory Rate 24 25 H Respiratory Effort / Characteristics Respiratory Depth Respiratory Pattern Blood Pressure 174/114 H 174/114 H 177/113 H Blood Pressure Mean 134 134 Pulse Oximetry 97 96 Oxygen Delivery Method Sepsis Recent Fever Within 48 Hours Sepsis New/Unexplained Change in Mental Status Sepsis Action Taken by Jail Medications Current Medication List: was personally reviewed by me Laboratory Data Attestation: I reviewed the patient's lab results. 02/18/23 16:12 02/18/23 16:12 Lab Results 02/18/23 02/18/23 02/18/23 Range/Units 16:12 16:12 16:12 WBC 11.12 H (4.8-10.8) K/ul RBC 5.43 (4.70-6.10) M/uL Hgb 16.9 (14.0-18.0) g/dl Hct 48.1 (42.0-52.0) % MCV 88.6 (80.0-100.0) fL MCH 31.1 (25.0-34.0) pg MCHC 35.1 (32.0-36.0) g/dL RDW Std Deviation 41.7 (36.4-46.3) fL RDW Coeff of Brice 12.8 (11.5-14.5) % Plt Count 205 (130-400) K/uL MPV 11.1 (9.4-12.4) fL Immature Gran % (Auto) 0.4 % Neut % (Auto) 81.3 % Lymph % (Auto) 10.1 % [place] % (Auto) 7.5 % Eos % (Auto) 0.3 % Baso % (Auto) 0.4 % Neut # (Auto) 9.06 H (1.40-6.50) K/uL Lymph # (Auto) 1.12 L (1.2-3.4) K/uL [place] # (Auto) 0.83 H (0.11-0.59) K/uL Eos # (Auto) 0.03 (0-0.50) K/uL Baso # (Auto) 0.04 (0-0.2) K/uL Immature Gran # (Auto) 0.04 (0.01-0.20) K/uL PT 12.0 (9.0-12.0) Seconds INR 1.1 (0.9-1.1) Sodium 140 (136-145) mmol/L Potassium 4.1 (3.5-5.1) mmol/L Chloride 106 (98-107) mmol/L Carbon Dioxide 22 (21-32) mmol/L Anion Gap 12 H (3-11) BUN 15 (6-23) mg/dl Creatinine 1.35 (0.6-1.4) mg/dl Est Cr Clr Drug Dosing Not Reportable Est GFR ( Amer) 58.3 ml/min Est GFR (Non-Af Amer) 50.3 ml/min BUN/Creatinine Ratio 11.1 (10-20) Glucose 140 H (70-99(Fasting)) mg/dl Lactate (0.4-2.0) mmol/L Calcium 9.6 (8.6-10.3) mg/dl Magnesium 1.8 (1.7-2.4) mg/dl Total Bilirubin 1.0 (0.2-1.0) mg/dl AST 33 (13-39) U/L ALT 23 (7-52) U/L Alkaline Phosphatase 105 H (34-104) U/L Ammonia (18-72) umol/L Troponin I High Sens 27.2 H (0-20) pg/ml Total Protein 7.7 (6.0-8.3) gm/dl Albumin 4.5 (3.4-5.0) gm/dl Globulin 3.2 (2.5-4.0) gm/dl Albumin/Globulin Ratio 1.4 (0.9-2) TSH (0.300-4.500) uIu/ml Urine Color Urine Appearance (Clear) Urine pH (4.5-7.5) Ur Specific [place] (1.000-1.030) Urine Protein (Negative) Urine Glucose (UA) (Negative) Urine Ketones (Negative) Urine Blood (Negative) Urine Nitrite (Negative) Urine Bilirubin (Negative) Urine Urobilinogen (Negative) Ur Leukocyte Esterase (Negative) Urine WBC (Auto) (0-5) /hpf Urine RBC (Auto) (0-4) /hpf U Hyaline Cast (Auto) (0-5) /lpf U Epithel Cells (Auto) (0-5) /lpf Urine Bacteria (Auto) (Negative) SARS-CoV-2, RNA, NAAT (NEGATIVE) 02/18/23 02/18/23 02/18/23 Range/Units 16:12 16:12 16:12 WBC (4.8-10.8) K/ul RBC (4.70-6.10) M/uL Hgb (14.0-18.0) g/dl Hct (42.0-52.0) % MCV (80.0-100.0) fL MCH (25.0-34.0) pg MCHC (32.0-36.0) g/dL RDW Std Deviation (36.4-46.3) fL RDW Coeff of Brice (11.5-14.5) % Plt Count (130-400) K/uL MPV (9.4-12.4) fL Immature Gran % (Auto) % Neut % (Auto) % Lymph % (Auto) % [place] % (Auto) % Eos % (Auto) % Baso % (Auto) % Neut # (Auto) (1.40-6.50) K/uL Lymph # (Auto) (1.2-3.4) K/uL [place] # (Auto) (0.11-0.59) K/uL Eos # (Auto) (0-0.50) K/uL Baso # (Auto) (0-0.2) K/uL Immature Gran # (Auto) (0.01-0.20) K/uL PT (9.0-12.0) Seconds INR (0.9-1.1) Sodium (136-145) mmol/L Potassium (3.5-5.1) mmol/L Chloride (98-107) mmol/L Carbon Dioxide (21-32) mmol/L Anion Gap (3-11) BUN (6-23) mg/dl Creatinine (0.6-1.4) mg/dl Est Cr Clr Drug Dosing Est GFR ( Amer) ml/min Est GFR (Non-Af Amer) ml/min BUN/Creatinine Ratio (10-20) Glucose (70-99(Fasting)) mg/dl Lactate 1.5 (0.4-2.0) mmol/L Calcium (8.6-10.3) mg/dl Magnesium (1.7-2.4) mg/dl Total Bilirubin (0.2-1.0) mg/dl AST (13-39) U/L ALT (7-52) U/L Alkaline Phosphatase (34-104) U/L Ammonia 21.0 (18-72) umol/L Troponin I High Sens (0-20) pg/ml Total Protein (6.0-8.3) gm/dl Albumin (3.4-5.0) gm/dl Globulin (2.5-4.0) gm/dl Albumin/Globulin Ratio (0.9-2) TSH 1.147 (0.300-4.500) uIu/ml Urine Color Urine Appearance (Clear) Urine pH (4.5-7.5) Ur Specific [place] (1.000-1.030) Urine Protein (Negative) Urine Glucose (UA) (Negative) Urine Ketones (Negative) Urine Blood (Negative) Urine Nitrite (Negative) Urine Bilirubin (Negative) Urine Urobilinogen (Negative) Ur Leukocyte Esterase (Negative) Urine WBC (Auto) (0-5) /hpf Urine RBC (Auto) (0-4) /hpf U Hyaline Cast (Auto) (0-5) /lpf U Epithel Cells (Auto) (0-5) /lpf Urine Bacteria (Auto) (Negative) SARS-CoV-2, RNA, NAAT (NEGATIVE) 02/18/23 02/18/23 Range/Units 16:22 16:41 WBC (4.8-10.8) K/ul RBC (4.70-6.10) M/uL Hgb (14.0-18.0) g/dl Hct (42.0-52.0) % MCV (80.0-100.0) fL MCH (25.0-34.0) pg MCHC (32.0-36.0) g/dL RDW Std Deviation (36.4-46.3) fL RDW Coeff of Brice (11.5-14.5) % Plt Count (130-400) K/uL MPV (9.4-12.4) fL Immature Gran % (Auto) % Neut % (Auto) % Lymph % (Auto) % [place] % (Auto) % Eos % (Auto) % Baso % (Auto) % Neut # (Auto) (1.40-6.50) K/uL Lymph # (Auto) (1.2-3.4) K/uL [place] # (Auto) (0.11-0.59) K/uL Eos # (Auto) (0-0.50) K/uL Baso # (Auto) (0-0.2) K/uL Immature Gran # (Auto) (0.01-0.20) K/uL PT (9.0-12.0) Seconds INR (0.9-1.1) Sodium (136-145) mmol/L Potassium (3.5-5.1) mmol/L Chloride (98-107) mmol/L Carbon Dioxide (21-32) mmol/L Anion Gap (3-11) BUN (6-23) mg/dl Creatinine (0.6-1.4) mg/dl Est Cr Clr Drug Dosing Est GFR ( Amer) ml/min Est GFR (Non-Af Amer) ml/min BUN/Creatinine Ratio (10-20) Glucose (70-99(Fasting)) mg/dl Lactate (0.4-2.0) mmol/L Calcium (8.6-10.3) mg/dl Magnesium (1.7-2.4) mg/dl Total Bilirubin (0.2-1.0) mg/dl AST (13-39) U/L ALT (7-52) U/L Alkaline Phosphatase (34-104) U/L Ammonia (18-72) umol/L Troponin I High Sens (0-20) pg/ml Total Protein (6.0-8.3) gm/dl Albumin (3.4-5.0) gm/dl Globulin (2.5-4.0) gm/dl Albumin/Globulin Ratio (0.9-2) TSH (0.300-4.500) uIu/ml Urine Color Dark Yellow Urine Appearance Clear (Clear) Urine pH 5.0 (4.5-7.5) Ur Specific [place] 1.022 (1.000-1.030) Urine Protein 2+ H (Negative) Urine Glucose (UA) Negative (Negative) Urine Ketones Trace H (Negative) Urine Blood 2+ H (Negative) Urine Nitrite Negative (Negative) Urine Bilirubin Negative (Negative) Urine Urobilinogen Negative (Negative) Ur Leukocyte Esterase Negative (Negative) Urine WBC (Auto) 1-5 (0-5) /hpf Urine RBC (Auto) 0-4 (0-4) /hpf U Hyaline Cast (Auto) 0 (0-5) /lpf U Epithel Cells (Auto) 10-20 H (0-5) /lpf Urine Bacteria (Auto) Negative (Negative) SARS-CoV-2, RNA, NAAT NEGATIVE (NEGATIVE) Administered Medications Sodium Chloride (Nss 1000ml) 500 mls @ 999 mls/hr IV .Q31M ONE Stop: 02/18/23 18:04 Last Admin: 02/18/23 17:42 Dose: 999 mls/hr Documented By: DARYN Discontinued Medications Sodium Chloride (Nss) 500 mls @ 999 mls/hr IV .Q31M RUPINDER Stop: 02/18/23 16:45 Last Infusion: 02/18/23 17:27 Dose: 0 mls/hr Documented By: Admin: 02/18/23 16:37 Dose: 999 mls/hr Documented By: DARYN Sodium Chloride (Nss 1000ml) 500 mls @ 999 mls/hr IV .Q31M ONE Stop: 02/18/23 16:39 Last Infusion: 02/18/23 17:27 Dose: 0 mls/hr Documented By: Admin: 02/18/23 16:37 Dose: 999 mls/hr Documented By: DARYN Acetaminophen (Ofirmev) 1,000 mg in 100 mls @ 400 mls/hr IV NOW STA Stop: 02/18/23 16:23 Last Infusion: 02/18/23 17:27 Dose: 0 mls/hr Documented By: Admin: 02/18/23 16:38 Dose: 400 mls/hr Documented By: DARYN Cefepime HCl (Maxipime) 2,000 mg in 20 mls @ 5 mls/min IV NOW STA; Protocol Stop: 02/18/23 16:12 Last Admin: 02/18/23 16:38 Dose: 5 mls/min Documented By: DARYN Metoprolol Tartrate (Metoprolol Tartrate 1 Mg/Ml Vial) 5 mg IV NOW STA Stop: 02/18/23 16:34 Last Admin: 02/18/23 16:37 Dose: 5 mg Documented By: DARYN Imaging Data Radiologist's Impression: Chest X-Ray 02/18/23 16:04 XR chest 1V portable CLINICAL HISTORY: weakness COMPARISON STUDY: Chest CT March 16, 2021. Chest radiograph January 16, 2023. FINDINGS: There are median sternotomy wires and mediastinal surgical clips. No pneumothorax or pleural effusion is present. A calcified granuloma within the left upper lobe is noted. There is no consolidation or evidence for pulmonary ed felice. Lung volumes are mildly diminished. IMPRESSION: No acute cardiopulmonary findings. ACT 112: Negative or not required by law. Electronically signed by: Ronny Sanderson M.D. 02/18/2023 5:[address] 02/18/23 16:04 CT OF THE HEAD WITHOUT CONTRAST CLINICAL HISTORY: eliquis, altered COMPARISON STUDY: Head CT and CTA of the head January 16, 2023. MRI of the brain January 17, 2023. TECHNIQUE: Helical axial images of the head were obtained without IV contrast. Automated exposure control was utilized for the study. A dose lowering technique was utilized adhering to the principles of ALARA. FINDINGS: No acute intracranial hemorrhage, midline shift or mass effect is present. White matter hypodensities are unchanged and suggest small vessel disease. Old periventricular infarct within the right frontal lobe is unchanged. The appearance of the brain is unchanged. The ventricular system is unremarkable. The basal cisterns are patent. No extra-axial collections are present. There are no findings to suggest acute dural sinus thrombosis or acute territorial infarct. No significant calvarial abnormalities are present. Visualized portions of the sinuses and mastoid air cells are clear. IMPRESSION: No acute intracranial findings. No change in appearance of the b rain. ACT 112: Negative or not required by law. Electronically signed by: Ronny Sanderson M.D. 02/18/2023 4:38 PM Abdomen/Pelvis CT 02/18/23 16:09 CT OF THE ABDOMEN AND PELVIS WITHOUT CONTRAST CLINICAL HISTORY: Possible obstruction. Abdominal pain. Confusion. COMPARISON STUDY: CT of the abdomen and pelvis December 09, 2022. TECHNIQUE: Axial images of the abdomen and pelvis were obtained without IV contrast. Images were reviewed in the axial, sagittal, and coronal planes. Automated exposure control was utilized for the study. A dose lowering te chnique was utilized adhering to the principles of ALARA. FINDINGS: No pneumatosis, free air or portal venous gas is present. The gallbladder is moderately distended. However, there is no adjacent infiltration. Evaluation of the abdomen and pelvis is suboptimal on this unenhanced exam. The appearance of the liver is unchanged. Mild splenomegaly is unchanged. Adrenal glands and pancreas are unremarkable. There is marked left renal atrophy. There are multiple punctate right renal calculi. No ureteral calculi. No hydronephrosis. Plata balloon within the bladder is present. There is no evidence for a bowel obstruction. A few colonic diverticula are noted without evidence for acute diverticulitis. No evidence for acute appendicitis. There is no lymphadenopathy. There are no acute fractures within the visualized skeletal structures. IMPRESSION: 1. No bowel obstruction. 2. Multiple punctate right renal calculi. No ureteral calculi. No hydronephrosis. 3. Moderate gallbladder distention. No pericholecystic infiltration to strongly suggest acute cholecystitis however if right upper quadrant pain, ultrasound is recommend. ACT 112: Negative or not required by law. Electronically signed by: Ronny Sanderson M.D. 02/18/2023 4:43 PM Discharge Plan Visit Data Chief Complaint: Altered Mental Status Stated Complaint: AMS, CONFUSION ED Provider: Bryant Mclaughlin Discharge Problem: Altered mental status, Acute dehydration, Leukocytosis, Urinary incontinence Patient Disposition: Admitted As Inpatient Condition: Fair Forms Stand Alone Forms: [facility] [employer] Prescriptions Prescriptions: No Action ezetimibe 10 mg tablet 10 mg PO QAM clopidogrel 75 mg Tablet 75 mg PO QAM Qty: 30 0RF omeprazole 20 mg capsule,delayed release(DR/EC) 20 mg PO BID multivitamin with minerals Tablet 1 tab PO DAILY amlodipine 2.5 mg tablet 2.5 mg PO DAILY tamsulosin 0.4 mg capsule 0.4 mg PO DAILY ropinirole 0.5 mg tablet 0.5 mg PO DAILY lisinopril 10 mg tablet 10 mg PO DAILY sennosides [Senokot] 8.6 mg Tablet 8.6 mg PO QAM Qty: 0 0RF metoprolol succinate 25 mg Tablet Extended Release 24 Hr 25 mg PO QAM Qty: 0 0RF Eliquis 5 mg tablet 5 mg PO BID Referrals Referrals: Alejandrina Brooks DO [Primary Care Provider] -
[2023-02-18] MEDS ORDERED: METOPROLOL TARTRATE 1 MG/ML VIAL IV STA (16:33)
[2023-02-18 16:39] LABS: Appearance Urine Clear (Clear); Bacteria Urine Automated Negative (Negative); Bilirubin Urine Negative (Negative); Blood Urine 2+ (Negative); Cast Urine Automated 0 /lpf (0-5); Color Urine Dark Yellow; Glucose Urine UA Negative (Negative); Ketones Urine Trace (Negative); Leukocyte Esterase Urine Negative (Negative); Nitrite Urine Negative (Negative); Protein Urine 2+ (Negative); RBC Urine Automated 0-4 /hpf (0-4); Specific Gravity Urine 1.022 (1.000-1.030); Urobilinogen Urine Negative (Negative)
[2023-02-18 16:40] LABS: Basophils # (auto) 0.04 K/uL (0-0.2); Basophils % (auto) 0.4 %; Eosinophils # (auto) 0.03 K/uL (0-0.50); Eosinophils % (auto) 0.3 %; Hematocrit (blood only) 48.1 % (42.0-52.0); Hemoglobin 16.9 g/dl (14.0-18.0); Immature Granulocytes # (auto) 0.04 K/uL (0.01-0.20); Immature Granulocytes % (auto) 0.4 %; Lymphocytes # (auto) 1.12 K/uL (1.2-3.4); Lymphocytes % (auto) 10.1 %; Mean Corpuscular Hemoglobin 31.1 pg (25.0-34.0); Mean Corpuscular Hgb Conc 35.1 g/dL (32.0-36.0); Mean Corpuscular Volume 88.6 fL (80.0-100.0); Mean Platelet Volume 11.1 fL (9.4-12.4); Monocytes # (auto) 0.83 K/uL (0.11-0.59); Monocytes % (auto) 7.5 %; Neutrophils # (auto) 9.06 K/uL (1.40-6.50); Neutrophils % (auto) 81.3 %; Platelet Count 205 K/uL (130-400); RDW Coefficient of Variation 12.8 % (11.5-14.5); RDW Standard Deviation 41.7 fL (36.4-46.3); Red Blood Count 5.43 M/uL (4.70-6.10); White Blood Count 11.12 K/ul (4.8-10.8)
--- NOTE | 2023-02-18 16:40 | CT Scan Report ---
CT OF THE HEAD WITHOUT CONTRAST CLINICAL HISTORY: deanaamberrojas, altered COMPARISON STUDY: Head CT and CTA of the head January 16, 2023. MRI of the brain January 17, 2023. TECHNIQUE: Helical axial images of the head were obtained without IV contrast. Automated exposure con trol was utilized for the study. A dose lowering technique was utilized adhering to the principles o f ALARA. FINDINGS: No acute intracranial hemorrhage, midline shift or mass effect is present. White matter hyp odensities are unchanged and suggest small vessel disease. Old periventricular infarct within the rig ht frontal lobe is unchanged. The appearance of the brain is unchanged. The ventricular system is unr emarkable. The basal cisterns are patent. No extra-axial collections are present. There are no findin gs to suggest acute dural sinus thrombosis or acute territorial infarct. No significant calvarial abn ormalities are present. Visualized portions of the sinuses and mastoid air cells are clear. IMPRESSION: No acute intracranial findings. No change in appearance of the brain. ACT 112: Negative or not required by law. Electronically signed by: Ronny Sanderson M.D. 02/18/2023 4:38 PM
--- NOTE | 2023-02-18 16:45 | CT Scan Report ---
CT OF THE ABDOMEN AND PELVIS WITHOUT CONTRAST CLINICAL HISTORY: Possible obstruction. Abdominal pain. Confusion. COMPARISON STUDY: CT of the abdomen and pelvis December 09, 2022. TECHNIQUE: Axial images of the abdomen and pelvis were obtained without IV contrast. Images were revi ewed in the axial, sagittal, and coronal planes. Automated exposure control was utilized for the amauri dy. A dose lowering technique was utilized adhering to the principles of ALARA. FINDINGS: No pneumatosis, free air or portal venous gas is present. The gallbladder is moderately dis tended. However, there is no adjacent infiltration. Evaluation of the abdomen and pelvis is suboptima l on this unenhanced exam. The appearance of the liver is unchanged. Mild splenomegaly is unchanged. Adrenal glands and pancreas are unremarkable. There is marked left renal atrophy. There are multiple punctate right renal calculi. No ureteral calculi. No hydronephrosis. Plata balloon within the bladde r is present. There is no evidence for a bowel obstruction. A few colonic diverticula are noted witho ut evidence for acute diverticulitis. No evidence for acute appendicitis. There is no lymphadenopathy . There are no acute fractures within the visualized skeletal structures. IMPRESSION: 1. No bowel obstruction. 2. Multiple punctate right renal calculi. No ureteral calculi. No hydronephrosis. 3. Moderate gallbladder distention. No pericholecystic infiltration to strongly suggest acute cholecy stitis however if right upper quadrant pain, ultrasound is recommend. ACT 112: Negative or not required by law. Electronically signed by: Ronny Sanderson M.D. 02/18/2023 4:43 PM
[2023-02-18 16:57] LABS: Alanine Aminotransferase 23 U/L (7-52); Albumin Globulin Ratio 1.4 (0.9-2); Albumin Level 4.5 gm/dl (3.4-5.0); Alkaline Phosphatase 105 U/L (34-104); Anion Gap 12 (3-11); Aspartate Aminotransferase 33 U/L (13-39); BUN Creatinine Ratio 11.1 (10-20); Blood Urea Nitrogen 15 mg/dl (6-23); Calcium 9.6 mg/dl (8.6-10.3); Carbon Dioxide 22 mmol/L (21-32); Chloride 106 mmol/L (98-107); Est GFR (African American) 58.3 ml/min; Est GFR (Non-African American) 50.3 ml/min; Globulin 3.2 gm/dl (2.5-4.0); Glucose 140 mg/dl (70-99(Fasting)); Magnesium 1.8 mg/dl (1.7-2.4); Potassium 4.1 mmol/L (3.5-5.1); Sodium 140 mmol/L (136-145); Total Protein 7.7 gm/dl (6.0-8.3)
[2023-02-18 17:03] LABS: Troponin I High Sensitivity 27.2 pg/ml (0-20)
[2023-02-18 17:09] LABS: INR 1.1 (0.9-1.1)
--- NOTE | 2023-02-18 17:14 | XRay Report ---
XR chest 1V portable CLINICAL HISTORY: weakness COMPARISON STUDY: Chest CT March 16, 2021. Chest radiograph January 16, 2023. FINDINGS: There are median sternotomy wires and mediastinal surgical clips. No pneumothorax or pleura l effusion is present. A calcified granuloma within the left upper lobe is noted. There is no consoli dation or evidence for pulmonary edema. Lung volumes are mildly diminished. IMPRESSION: No acute cardiopulmonary findings. ACT 112: Negative or not required by law. Electronically signed by: Ronny Sanderson M.D. 02/18/2023 5:12 PM
--- NOTE | 2023-02-18 18:39 | History & Physical Report ---
Date of Service February 18, 2023 Assessment & Plan (1) Encephalopathy: Plan: 77 y/o male with a PMHx of CVA with subsequent left sided hemiparesis, a fib on Eliquis, CKD III, CAD s/p CABG x3 stent placement, HTN, GERD, and RLS presented with poor PO intake and change in mental status admitted for acute encephalopathy, dehydration, and medication non-adherence. #Encephalopathy Patient seen last month for similar symptomatology. Thorough workup was completed including CK, TSH, T3, T4, Head CT, MRI Brain - no changes in comparison to 06/2022, CTA Head and Neck - right external carotid stenosis without indication for intervention. Patient had recently started baclofen which may have contributed to symptoms. Change in mental status likely multifactorial with decreased PO intake, recent fall, medication non-adherence and thus hypertensive state etc. Patient likely has a lower threshold for encephalopathy with his CVA history. Will resume home medications and monitor. -supportive care -encourage good sleep/wake cycles -fluid resuscitation -restart home meds (2) Acute dehydration: Plan: Mental status could be related to recent poor PO intake and dehydration. Adequately fluid resuscitated with 1.5 L NS. Would continue with maintenance rate NS at 80 mL/hr. (3) Leukocytosis: Plan: Likely hemoconcentrated in the setting of dehydration. Less likely infectious cause - CXR without notable consolidation, UA neg. Will trend - AM CBC (4) History of stroke: Plan: With left hemiparesis. No acute issues. CT Head unchanged from prior. Continue Plavix, Eliquis, Zetia (5) PAF (paroxysmal atrial fibrillation): Plan: Sinus tachycardia on EKG. Restart home metoprolol. On Plavix and Eliquis - Monitor on tele (6) Ambulatory dysfunction: Plan: PT/OT on board. Likely will need assistance with ADLs. Would rec CM involvement. (7) HTN (hypertension): Plan: Patient was not taking his home meds for the last few days. Likely why he is hypertensive. Restart home meds and continue to monitor - amlodipine, lisinopril, and metoprolol (reduced to 25 mg last admission as patient bradycardic) (8) CKD (chronic kidney disease) stage 3, GFR 30-59 ml/min: Plan: Cr 1.35 this admission. IVF as patient likely dehydrated. Monitor intake and output. - AM BMP (9) CAD (coronary artery disease): Plan: Chronic and Stable.Continue Plavix, Zetia, metoprolol, lisinopril, Eliquis -s/p CABG x August 2020 (10) DM (diabetes mellitus): Plan: Chronic and stable. HgbA1C 6.7. Carb consistent diet.Can add sliding scale coverage if needed. (11) GERD (gastroesophageal reflux disease): Plan: Chronic and Stable.Continue Protonix while hospitalized (omeprazole at home) (12) Restless leg syndrome: Plan: Chronic and Stable.Continue ropinirole (13) S/P CABG x 3: (14) Left hemiplegia: Plan Code: DNR/DNI DVT ppx: Eliquis Plavix GI ppx: pantoprazole FENGI: heart healthy carb consistent diet IVF NS 80 mL/hr Dispo: MedSurg with Tele, likely will need SNF placement Discussed code status with [facility] 02/18 History of Present Illness Chief Complaint: Encephalopathy Primary Care Provider: Alejandrina Brooks, DO 77 y/o with a PMHx of CVA with subsequent left sided hemiparesis, a. fib on Eliquis, CKD III, CAD s/p CABG x3 stent placement, HTN, GERD, and RLS presented with poor PO intake and change in mental status. Patient recently seen for similar presentation. He completed rehab at SNF and was in an assisted living facility. Patient abruptly decided he wanted to go home 02/14 and he was taken back home. He then fell 02/16. EMS was called and helped him back into bed. He was not deemed to need emergency care at that time. Aunt/Uncle were caring for him 02/18 and noticed a change in mental status and called EMS. Patient had several days where he did not want to eat or drink. He would not get out of bed to urinate or take his medications. No noticed fevers or chills. Mr. Antonio's daughter expressed frustration that he left the assisted living facility. She and the other members of her family are not able to care for him at home. He is adamant about remaining at home, but per Katharina this is likely not feasible. History obtained from Daughter Katharina Oneil [phone] Allergies Allergy/AdvReac Type Severity Reaction Status Date / Time Corticosteroids Allergy Unknown Unknown Verified 02/18/23 18:57 (Glucocorticoids) niacin Allergy Unknown ARTHRALGIAS Verified 02/18/23 18:57 FROM ADVICOR telithromycin Allergy Unknown ARTHRALGIAS Verified 02/18/23 18:57 FROM ADVICOR atorvastatin AdvReac Intermediate Muscle Pain Verified 02/18/23 18:57 lovastatin AdvReac Intermediate ARTHRALGIAS Verified 02/18/23 18:57 FROM ADVICOR Slrcqni-JBU-PkN Reductase AdvReac Intermediate Muscle Pain Verified 02/18/23 18:57 Inhibitor [Dkcykpc-Eoh-Wsz Reductase Inhibitor] Home Medications Medication Instructions Recorded Confirmed Type ezetimibe 10 mg tablet 10 mg PO QAM 11/11/19 02/18/23 History apixaban 5 mg tablet (Eliquis) 5 mg PO BID 01/17/21 02/18/23 History clopidogrel 75 mg tablet 75 mg PO QAM #30 tabs 01/29/21 02/18/23 Rx multivitamin with minerals 1 tab PO DAILY 03/16/21 02/18/23 History amlodipine 2.5 mg tablet 2.5 mg PO DAILY 12/09/22 02/18/23 History ropinirole 0.5 mg tablet 0.5 mg PO HS 01/16/23 02/18/23 History tamsulosin 0.4 mg capsule 0.4 mg PO DAILY 01/16/23 02/18/23 History lisinopril 10 mg tablet 10 mg PO DAILY 02/18/23 02/18/23 History metoprolol succinate 25 mg 50 mg PO HS 02/18/23 02/18/23 History tablet,extended release 24 hr pantoprazole 20 mg tablet,delayed 20 mg PO DAILY 02/18/23 02/18/23 History release sennosides 8.6 mg tablet (Senokot) 8.6 mg PO QAM PRN Constipation 02/18/23 02/18/23 History Past Med/Surg History Medical History Ambulatory dysfunction CAD (coronary artery disease) CHI (closed head injury) CKD (chronic kidney disease) stage 3, GFR 30-59 ml/min CVA (cerebral vascular accident) january 2021 Depression Diaphragmatic paralysis Diarrhea Elevated lipase Fall Generalized weakness GERD (gastroesophageal reflux disease) History of stroke HTN (hypertension) Hypercholesteremia Hypertriglyceridemia Hypotension Left rib fracture Physical deconditioning Postoperative atrial fibrillation Presence of arterial stent L leg, unable to relate exact location. Pressure ulcer of right buttock Restless leg syndrome Stroke TIA (transient ischemic attack) Type II diabetes mellitus Surgical History H/O knee surgery stent behind left knee 2017 H/O vasectomy History of angioplasty of peripheral vessel LLE angiogram with FIRE PREVENTION CHIEF popliteal 05/23/2018 Hx of colonoscopy 2017 S/P CABG x 3 Family History Grandfather Colorectal cancer Mother Diabetes Hypertension Brother Stroke Social History Smoking Status: Never smoker Tobacco Type: Cigarettes Second Hand Exposure: No; Do You Dip or Chew Tobacco: No; Hx Alcohol Use: Yes Alcohol type: beer Hx Substance Use: No Preferred Language: Togolese Communication Ability: Impaired Communication Ability Comment: Aphasia. Kitchen Manager Required: No Beliefs That Will Affect Care: None marital status: Single Current Living Situation: Alone Current Living Situation Comment: JUST DISCHARGED FROM [facility] TO HOME ALONE current occupational status: retired Feels Safe at Home: Yes Assistive Devices: Scooter/Electric Scooter and Walker Physical Exam Physical Exam: Gen: confused appearing gentleman in NAD, notable hemiparesis left side, HEENT: AT NC, PERRL, MMM Resp: CTAB no wheezing CV: tachycardic, no m/r/g appreciated 2+ peripheral pulses, no edema Abd: soft, non-tender, non-distended, no HSM or palpable masses : Plata in place Neuro: alert and oriented to person only, repeating nonsensical statements, hemiparesis left side, possible flapping tremor right hand, able to follow commands Skin: no bruising, rashes, or wounds noted Auscultation difficult as patient continues to repeat "29" Results & Data Results & Data Vital Signs (Past 12 Hours) Vital Signs Temp Pulse Resp BP Pulse Ox O2 Del Method 02/18/23 17:32 64 14 132/84 97 02/18/23 16:41 94 H 25 H 177/113 H 96 02/18/23 16:37 123 H 24 174/114 H 97 02/18/23 16:37 120 H 174/114 H 02/18/23 16:04 125 H 22 98 Room Air 02/18/23 16:00 36.4 C L 126 H 22 179/111 H 98 Room Air 02/18/23 16:11 125 H Laboratory Results 02/18/23 16:12 02/18/23 16:12 Diagnostic Findings Chest X-Ray 02/18/23 16:04 XR chest 1V portable CLINICAL HISTORY: weakness COMPARISON STUDY: Chest CT March 16, 2021. Chest radiograph January 16, 2023. FINDINGS: There are median sternotomy wires and mediastinal surgical clips. No pneumothorax or pleural effusion is present. A calcified granuloma within the left upper lobe is noted. There is no consolidation or evidence for pulmonary edema. Lung volumes are mildly diminished. IMPRESSION: No acute cardiopulmonary findings. Head CT 02/18/23 16:04 CT OF THE HEAD WITHOUT CONTRAST CLINICAL HISTORY: eliquis, altered COMPARISON STUDY: Head CT and CTA of the head January 16, 2023. MRI of the brain January 17, 2023. TECHNIQUE: Helical axial images of the head were obtained without IV contrast. Automated exposure control was utilized for the study. A dose lowering technique was utilized adhering to the principles of ALARA. FINDINGS: No acute intracranial hemorrhage, midline shift or mass effect is present. White matter hypodensities are unchanged and suggest small vessel disease. Old periventricular infarct within the right frontal lobe is unchanged. The appearance of the brain is unchanged. The ventricular system is unremarkable. The basal cisterns are patent. No extra-axial collections are present. There are no findings to suggest acute dural sinus thrombosis or acute territorial infarct. No significant calvarial abnormalities are present. Visualized portions of the sinuses and mastoid air cells are clear. IMPRESSION: No acute intracranial findings. No change in appearance of the brain. Abdomen/Pelvis CT 02/18/23 16:09 CT OF THE ABDOMEN AND PELVIS WITHOUT CONTRAST CLINICAL HISTORY: Possible obstruction. Abdominal pain. Confusion. COMPARISON STUDY: CT of the abdomen and pelvis December 09, 2022. TECHNIQUE: Axial images of the abdomen and pelvis were obtained without IV contrast. Images were reviewed in the axial, sagittal, and coronal planes. Automated exposure control was utilized for the study. A dose lowering technique was utilized adhering to the principles of ALARA. FINDINGS: No pneumatosis, free air or portal venous gas is present. The gallbladder is moderately distended. However, there is no adjacent infiltration. Evaluation of the abdomen and pelvis is suboptimal on this unenhanced exam. The appearance of the liver is unchanged. Mild splenomegaly is unchanged. Adrenal glands and pancreas are unremarkable. There is marked left renal atrophy. There are multiple punctate right renal calculi. No ureteral calculi. No hydronephrosis. Plata balloon within the bladder is present. There is no evidence for a bowel obstruction. A few colonic diverticula are noted without evidence for acute diverticulitis. No evidence for acute appendicitis. There is no lymphadenopathy. There are no acute fractures within the visualized skeletal structures. IMPRESSION: 1. No bowel obstruction. 2. Multiple punctate right renal calculi. No ureteral calculi. No hydronephros is. 3. Moderate gallbladder distention. No pericholecystic infiltration to strongly suggest acute cholecystitis however if right upper quadrant pain, ultrasound is recommend. Supervising Physician Co-Signing Physician Notes Resident Supervision Note: I personally saw and examined the patient. I verified all morrison points and agree with Dr. Conroy with the following exceptions and/or additions: S-This patient is a 77-year-old male known by me from recent previous admission, here with confusion and lethargy.He has been home for just a few days after rehab placement after a lengthy hospital stay. He had a fall a few days ago and was placed back in bed by EMS. It is unclear if he has been out of bed since then or taking any of his medications or taking p.o.. In the ER, he was found to be tachycardic, hypertensive, and dehydrated. He was given IV fluids and IV Lopressor. When I saw him, he was humming and did answer some yes or no questions and follows some simple commands. He was unable to gi ve any history. History and ROS reviewed otherwise as above O- Vitals reviewed Gen: [drowsy, does wake up, confused, NAD] HEENT: [anicteric sclerae,PERRL] CV: [RRR no mgr nl S1S2] Pulm: [CTAB no wcr] Abd: [+BS soft NT ND no masses or hernias] Ext: [no edema] Skin: [no rashes, warm/dry] Neuro: Left-sided hemiparesis, flaccid, does wiggle toes, dorsiflex and plantarflex right ankle, and squeezes my fingers with right hand on command, No facial droop Labs, rads, ECG reviewed A/W-13-kcmd[age]old male with history noted as above, here with acute encephalopathy, possible hypertensive encephalopathy, with dehydration as well, likely from medication noncompliance. No need for further work-up for stroke Restart home medications as noted above,Improved blood pressure control, give IV fluids Supportive care Resident Activity Tracking Resident Involvement: Resident Care Provided Care Provided: Adult Hospital Medicine (3) Leukocytosis Leukocytosis type: unspecified Qualified Code(s): D72.829 - Elevated white blood cell count, unspecified (7) HTN (hypertension) Hypertension type: essential hypertension Qualified Code(s): I10 - Essential (primary) hypertension (9) CAD (coronary artery disease) Associated angina: with unstable angina Coronary Disease-Associated Artery/Lesion type: [place] artery [place] vs. transplanted heart: [place] heart Qualified Code(s): I25.110 - Atherosclerotic heart disease of [place] coronary artery with unstable angina pectoris (10) DM (diabetes mellitus) Diabetes mellitus complication status: without complication Diabetes mellitus mcc insulin use: without mcc use Diabetes mellitus type: type 2 Qualified Code(s): E11.9 - Type 2 diabetes mellitus without complications (11) GERD (gastroesophageal reflux disease) Esophagitis presence: esophagitis presence not specified Qualified Code(s): K21.9 - Gastro-esophageal reflux disease without esophagitis
--- NOTE | 2023-02-18 21:28 | Billing Data ---
Date of Service February 18, 2023 Coding Level of Care Code 99779 INT INP/OBS CARE
[2023-02-18] MEDS ORDERED: ACETAMINOPHEN 325 MG TAB PO PRN (23:06)
[2023-02-19] MEDS: SODIUM CHLORIDE 0.9% 1000ML 1,000 ML IV SCH ×3 (00:13→20:51)
[2023-02-19] MEDS: rOPINIRole HCL 0.25 MG TABLET PO SCH ×3 (00:31→20:51)
[2023-02-19] MEDS: METOPROLOL SUCC 25MG EXT REL TAB PO SCH ×2 (00:32→00:45)
[2023-02-19] MEDS: APIXABAN 5 MG TABLET PO SCH ×4 (00:32→20:51)
[2023-02-19] MEDS: amLODIPine BESYLATE 5 MG TAB PO SCH ×3 (00:33→11:19)
[2023-02-19] MEDS: PANTOprazole 40 MG TAB PO SCH ×3 (00:33→11:20)
[2023-02-19] MEDS: lisinopril 10 MG TAB PO SCH ×3 (00:34→11:19)
[2023-02-19] MEDS: POLYETHYLENE (MIRALAX) 17 GM PACK PO SCH ×2 (00:34→11:20)
[2023-02-19] MEDS: EZETIMIBE 10 MG TABLET PO SCH (07:54)
[2023-02-19] MEDS: CLOPIDOGREL BISULFATE 75 MG TAB PO SCH (07:54)
[2023-02-19] MEDS: TAMSULOSIN HCL 0.4 MG CAP PO SCH (07:54)
[2023-02-19] MEDS: CEROVITE ADV FORMULA TAB PO SCH (08:05)
[2023-02-19 08:41] LABS: Hematocrit (blood only) 42.1 % (42.0-52.0); Hemoglobin 14.3 g/dl (14.0-18.0); Mean Corpuscular Hemoglobin 30.6 pg (25.0-34.0); Mean Platelet Volume 11.3 fL (9.4-12.4); Platelet Count 162 K/uL (130-400); RDW Coefficient of Variation 13.2 % (11.5-14.5); RDW Standard Deviation 43.3 fL (36.4-46.3); Red Blood Count 4.68 M/uL (4.70-6.10); White Blood Count 9.56 K/ul (4.8-10.8)
[2023-02-19 08:55] LABS: BUN Creatinine Ratio 13.2 (10-20); Creatinine Clr Calc Pharmacy 53.7 ml/min; Est GFR (African American) 71.5 ml/min; Est GFR (Non-African American) 61.7 ml/min; Potassium 3.9 mmol/L (3.5-5.1)
[2023-02-19 09:26] LABS: Lyme Ab IgG w/WB Rflx Negative (Negative); Lyme Ab IgM w/WB Rflx Negative (Negative)
[2023-02-19] MEDS ORDERED: MAGNESIUM SULFATE / D5W 1 GM/100 ML BAG IV ONE (10:05)
[2023-02-19] MEDS ORDERED: METOPROLOL SUCC 25MG EXT REL TAB PO ONE (11:45)
[2023-02-19 12:10] LABS: A calco-baum cmplx NotReported Not Detected (NotDetected); Bact fragilis Not Reported Not Detected (NotDetected); C auris Not Reported Not Detected (NotDetected); Calbicans Not Reported Not Detected (NotDetected); Candida glabrata Not Reported Not Detected (NotDetected); Candida krusei Not Reported Not Detected (NotDetected); Cneoformans/gatti Not Reported Not Detected (NotDetected); Cparapsilosis Not Reported Not Detected (NotDetected); Ctropicalis Not Reported Not Detected (NotDetected); E cloacae compx Not Reported Not Detected (NotDetected); Efaecalis Not Reported Not Detected (NotDetected); Efaecium Not Reported Not Detected (NotDetected); Enterobacterales Not Reported Not Detected (NotDetected); Escherichia coli Not Reported Not Detected (NotDetected); H influenzae Not Reported Not Detected (NotDetected); K aerogenes Not Reported Not Detected (NotDetected); Koxytoca Not Reported Not Detected (NotDetected); Kpneumoniae grp Not Reported Not Detected (NotDetected); Lmonocyt Not Reported Not Detected (NotDetected); N meningitidis Not Reported Not Detected (NotDetected); P aeruginosa Not Reported Not Detected (NotDetected); Proteus spp Not Reported Not Detected (NotDetected); Salmonella spp Not Reported Not Detected (NotDetected); Smarcescens Not Reported Not Detected (NotDetected); Staph lugdunensis Not Reported Not Detected (NotDetected); Staph spp. Not Reported DETECTED (NotDetected); Staphaureus Not Reported Not Detected (NotDetected); Staphepi Not Reported DETECTED (NotDetected); Staphylococcus spp. DETECTED (NotDetected); Stenmaltophilia Not Reported Not Detected (NotDetected); Strep agal(GrpB) Not Reported Not Detected (NotDetected); Strep pneum Not Reported Not Detected (NotDetected); Strep pyog (GrpA) Not Reported Not Detected (NotDetected); Strep spp Not Reported Not Detected (NotDetected); mecAC Resistant Gene DETECTED (NotDetected)
[2023-02-19 12:22] LABS: Staphylococcus epidermidis DETECTED (NotDetected)
[2023-02-19] MEDS ORDERED: VANCOMYCIN CONSULT ACTIVE PRN (12:42)
[2023-02-19] MEDS ORDERED: VANCOMYCIN HCL 1,500 MG in SODIUM CHLORIDE 0.9% 500 ML IV ONE (13:15)
--- NOTE | 2023-02-19 14:02 | Pharmacy Report ---
Pharmacy PK ABX Note - Date of Service February 19, 2023 - Assessment and Plan Assessment 77 year old who presented with poor PO intake and change in mental status. Started on vancomycin IV due to 1/2 BC growing gram positive cocci. BCID2 detected S. epidermidis (methicillin resistant). Per H&P, PMHx of CVA with subsequent left sided hemiparesis, a. fib on Eliquis, CKD III, CAD s/p CABG x3 stent placement, HTN, GERD, and RLS CXR: no acute cardiopulmonary findings UA: not suggestive of infection Per discussion with Hospitalist, if the remaining pending BC result as no growth, vancomycin can be discontinued due to likelihood of contamination and lack of systemic infectious symptoms. Plan Vancomycin * Loading dose: 1500 mg IV x 1 * Maintenance dose: 1000 mg IV every 18 hours * Regimen is predicted to achieve target AUC/MIRIAM of 400-600 mg/L.hr * Timing of level to be determined Pharmacy will continue to follow and will adjust dose/frequency as necessary. Thank you.0200 Pharmacy has transitioned to AUC monitoring for vancomycin. AUC/MIRIAM is the preferred PK/PD target and is associated with decreased risk of nephrotoxicity compared to traditional trough targets.
--- NOTE | 2023-02-19 14:21 | Infectious Disease Consult ---
Date of Consultation February 19, 2023 Consultation Information This patient recommendation is based on a telemedicine consult request which was completed asynchronously through chart review and information provided by the primary physician. The patient was not seen or examined today. The evaluation is consultative in nature and all patient care and treatment decisions can either be accepted or rejected by the patient's primary hospital-based treating physician using their own independent medical judgment for their patient. Formal Wear Rental Clerk contact information: Please call [facility] . (Phone Number For Physician Use Only) Time Spent Reviewing Chart: 31+ minutes History of Present Illness Attending Physician: Isaak Shearer MD Allergies Allergy/AdvReac Type Severity Reaction Status Date / Time Corticosteroids Allergy Unknown Unknown Verified 02/18/23 18:57 (Glucocorticoids) niacin Allergy Unknown ARTHRALGIAS Verified 02/18/23 18:57 FROM ADVICOR telithromycin Allergy Unknown ARTHRALGIAS Verified 02/18/23 18:57 FROM ADVICOR atorvastatin AdvReac Intermediate Muscle Pain Verified 02/18/23 18:57 lovastatin AdvReac Intermediate ARTHRALGIAS Verified 02/18/23 18:57 FROM ADVICOR Rfigvjq-BEJ-TtN Reductase AdvReac Intermediate Muscle Pain Verified 02/18/23 18:57 Inhibitor [Fyruwmc-Pmy-Kkx Reductase Inhibitor] Home Medications Medication Instructions Recorded Confirmed Type ezetimibe 10 mg tablet 10 mg PO QAM 11/11/19 02/18/23 History apixaban 5 mg tablet (Eliquis) 5 mg PO BID 01/17/21 02/18/23 History clopidogrel 75 mg tablet 75 mg PO QAM #30 tabs 01/29/21 02/18/23 Rx multivitamin with minerals 1 tab PO DAILY 03/16/21 02/18/23 History amlodipine 2.5 mg tablet 2.5 mg PO DAILY 12/09/22 02/18/23 History ropinirole 0.5 mg tablet 0.5 mg PO HS 01/16/23 02/18/23 History tamsulosin 0.4 mg capsule 0.4 mg PO DAILY 01/16/23 02/18/23 History lisinopril 10 mg tablet 10 mg PO DAILY 02/18/23 02/18/23 History metoprolol succinate 25 mg 50 mg PO HS 02/18/23 02/18/23 History tablet,extended release 24 hr pantoprazole 20 mg tablet,delayed 20 mg PO DAILY 02/18/23 02/18/23 History release sennosides 8.6 mg tablet (Senokot) 8.6 mg PO QAM PRN Constipation 02/18/23 02/18/23 History Patient History Medical History Ambulatory dysfunction CAD (coronary artery disease) CHI (closed head injury) CKD (chronic kidney disease) stage 3, GFR 30-59 ml/min CVA (cerebral vascular accident) january 2021 Depression Diaphragmatic paralysis Diarrhea Elevated lipase Fall Generalized weakness GERD (gastroesophageal reflux disease) History of stroke HTN (hypertension) Hypercholesteremia Hypertriglyceridemia Hypotension Left rib fracture Physical deconditioning Postoperative atrial fibrillation Presence of arterial stent L leg, unable to relate exact location. Pressure ulcer of right buttock Restless leg syndrome Stroke TIA (transient ischemic attack) Type II diabetes mellitus Surgical History H/O knee surgery stent behind left knee 2017 H/O vasectomy History of angioplasty of peripheral vessel LLE angiogram with BOILER ROOM OPERATOR popliteal 05/23/2018 Hx of colonoscopy 2017 S/P CABG x 3 Family History Grandfather Colorectal cancer Mother Diabetes Hypertension Brother Stroke Social History Smoking Status: Former smoker Tobacco Type: Cigarettes Second Hand Exposure: No; Do You Dip or Chew Tobacco: No; Hx Alcohol Use: Yes Alcohol type: beer Hx Substance Use: No Preferred Language: [place]aguayan Communication Ability: Impaired Communication Ability Comment: Aphasia. Electric Needle Specialist Required: No Beliefs That Will Affect Care: None marital status: Single Current Living Situation: Alone Current Living Situation Comment: please see nurses notes current occupational status: retired Feels Safe at Home: Yes Assistive Devices: Glasses, Raised Toilet Seat and Scooter/Electric Scooter Results & Data Vital Signs (Past 12 Hours) Vital Signs Temp Pulse Pulse Resp BP Pulse Ox O2 Del Method 02/19/23 10:54 36.8 C 73 18 158/92 H 98 Room Air 02/19/23 09:28 74 02/19/23 08:18 36.5 C 83 18 176/83 H 97 Room Air 02/19/23 07:52 99 Room Air 02/19/23 04:00 16 98 Oxymask 02/19/23 03:53 68 L Room Air 02/19/23 02:48 36.5 C 67 18 151/78 H 97 Room Air O2 Flow Rate 02/19/23 10:54 02/19/23 09:28 02/19/23 08:18 02/19/23 07:52 02/19/23 04:00 4 02/19/23 03:53 02/19/23 02:48
--- NOTE | 2023-02-19 14:29 | Hospitalist Progress Note ---
Date of Service February 19, 2023 Assessment & Plan (1) Encephalopathy: Plan: 77 y/o male with a PMHx of CVA with subsequent left sided hemiparesis, a fib on Eliquis, CKD III, CAD s/p CABG x3 stent placement, HTN, GERD, and RLS presented with poor PO intake and change in mental status admitted for acute encephalopathy, dehydration, and medication non-adherence. #Encephalopathy Patient seen last month for similar symptomatology. Thorough workup was completed including CK, TSH, T3, T4, Head CT, MRI Brain - no changes in comparison to 06/2022, CTA Head and Neck - right external carotid stenosis without indication for intervention. Patient had recently started baclofen which may have contributed to symptoms. Change in mental status likely multifactorial with decreased PO intake, recent fall, medication non-adherence and thus hypertensive state etc. Patient likely has a lower threshold for encephalopathy with his CVA history. Home medications have been resumed. Seen the patient for the first time today. Do not have a comparison. Per nurse, he was awake and conversant earlier. -supportive care -encourage good sleep/wake cycles -fluid resuscitation -restart home meds Reached out to the family. No answer. Blood culture positive in 1 of 2 bottles for Staph epidermidis. Ordered a dose of vancomycin. Infectious disease consulted. Not sure that this is a true infection. Could be a contaminant. As the patient has ongoing encephalopathy, decided to treat for now. (2) Acute dehydration: Plan: Mental status could be related to recent poor PO intake and dehydration. Adequately fluid resuscitated with 1.5 L NS. continue with maintenance rate NS at 80 mL/hr. (3) Leukocytosis: Plan: Likely hemoconcentrated in the setting of dehydration. Less likely infectious cause - CXR without notable consolidation, UA neg. Will trend - AM CBC (4) History of stroke: Plan: With left hemiparesis. No acute issues. CT Head unchanged from prior. Continue Plavix, Eliquis, Zetia (5) PAF (paroxysmal atrial fibrillation): Plan: Sinus tachycardia on EKG. Restart home metoprolol. On Plavix and Eliquis - Monitor on tele (6) Ambulatory dysfunction: Plan: PT/OT on board. Likely will need assistance with ADLs. Would rec CM involvement. (7) HTN (hypertension): Plan: Patient was not taking his home meds for the last few days. Likely why he is hypertensive. Restart home meds and continue to monitor - amlodipine, lisinopril, and metoprolol (8) CKD (chronic kidney disease) stage 3, GFR 30-59 ml/min: Plan: Cr 1.35 this admission. IVF as patient likely dehydrated. Monitor intake and output. - AM BMP (9) CAD (coronary artery disease): Plan: Chronic and Stable.Continue Plavix, Zetia, metoprolol, lisinopril, Eliquis -s/p CABG x August 2020 (10) DM (diabetes mellitus): Plan: Chronic and stable. HgbA1C 6.7. Carb consistent diet. (11) GERD (gastroesophageal reflux disease): Plan: Chronic and Stable.Continue Protonix while hospitalized (omeprazole at home) (12) Restless leg syndrome: Plan: Chronic and Stable.Continue ropinirole (13) S/P CABG x 3: (14) Left hemiplegia: (15) Nonsustained ventricular tachycardia: Plan: Patient had an episode of nonsustained V. tach. Potassium 3.9 Mag 1.8 Increase the dose of metoprolol to home dose 50 p.o. nightly Plan Code: DNR/DNI DVT ppx: Eliquis Plavix GI ppx: pantoprazole FENGI: heart healthy carb consistent diet IVF NS 80 mL/hr Dispo: MedSurg with Tele, likely will need SNF placement Discussed code status with [facility] 02/18 Admission and Anticipated Discharge Date Admission Date: February 18, 2023 Subjective Patient appears to be still confused. He is drowsy but arousable. Able to converse. Per nurse, he was awake and conversant earlier. Had his breakfast and is now taking a nap. Review of Systems Review of Systems: All systems reviewed & are unremarkable except as noted in Subjective Physical Exam Physical Exam: General: Drowsy, arousable. Able to converse once a week. May be slightly confused Heart: S1, S2/regular rate and rhythm, no murmur rubs or gallops Lungs: Clear to auscultation bilaterally. Normal effort Abdomen: Soft/nontender/nondistended. No hepatosplenomegaly Extremities: No clubbing/cyanosis. No edema Behavior: Appropriate, cooperative Results & Data Results & Data Vital Signs (Past 12 Hours) Vital Signs Temp Pulse Pulse Resp BP Pulse Ox O2 Del Method 02/19/23 10:54 36.8 C 73 18 158/92 H 98 Room Air 02/19/23 09:28 74 02/19/23 08:18 36.5 C 83 18 176/83 H 97 Room Air 02/19/23 07:52 99 Room Air 02/19/23 04:00 16 98 Oxymask 02/19/23 03:53 68 L Room Air 02/19/23 02:48 36.5 C 67 18 151/78 H 97 Room Air O2 Flow Rate 02/19/23 10:54 02/19/23 09:28 02/19/23 08:18 02/19/23 07:52 02/19/23 04:00 4 02/19/23 03:53 02/19/23 02:48 Laboratory Results Abnormal lab results 02/18/23 02/18/23 02/18/23 Range/Units 16:10 16:12 16:12 WBC 11.12 H (4.8-10.8) K/ul RBC (4.70-6.10) M/uL Neut # (Auto) 9.06 H (1.40-6.50) K/uL Lymph # (Auto) 1.12 L (1.2-3.4) K/uL Barren # (Auto) 0.83 H (0.11-0.59) K/uL Chloride (98-107) mmol/L Anion Gap 12 H (3-11) Glucose 140 H (70-99(Fasting)) mg/dl Alkaline Phosphatase 105 H (34-104) U/L Troponin I High Sens 27.2 H (0-20) pg/ml Urine Protein (Negative) Urine Ketones (Negative) Urine Blood (Negative) U Epithel Cells (Auto) (0-5) /lpf Staphylococcus sp PCR DETECTED A (NotDetected) mecA/C-Methicil Resis Gene DETECTED A (NotDetected) Staph epidermidis (PCR) DETECTED A (NotDetected) 02/18/23 02/18/23 02/19/23 Range/Units 16:22 18:51 00:29 WBC (4.8-10.8) K/ul RBC (4.70-6.10) M/uL Neut # (Auto) (1.40-6.50) K/uL Lymph # (Auto) (1.2-3.4) K/uL Barren # (Auto) (0.11-0.59) K/uL Chloride (98-107) mmol/L Anion Gap (3-11) Glucose (70-99(Fasting)) mg/dl Alkaline Phosphatase (34-104) U/L Troponin I High Sens 29.3 H 23.9 H (0-20) pg/ml Urine Protein 2+ H (Negative) Urine Ketones Trace H (Negative) Urine Blood 2+ H (Negative) U Epithel Cells (Auto) 10-20 H (0-5) /lpf Staphylococcus sp PCR (NotDetected) mecA/C-Methicil Resis Gene (NotDetected) Staph epidermidis (PCR) (NotDetected) 02/19/23 02/19/23 02/19/23 Range/Units 07:32 07:32 07:32 WBC (4.8-10.8) K/ul RBC 4.68 L (4.70-6.10) M/uL Neut # (Auto) (1.40-6.50) K/uL Lymph # (Auto) (1.2-3.4) K/uL Barren # (Auto) (0.11-0.59) K/uL Chloride 111 H (98-107) mmol/L Anion Gap (3-11) Glucose 105 H (70-99(Fasting)) mg/dl Alkaline Phosphatase (34-104) U/L Troponin I High Sens 23.3 H (0-20) pg/ml Urine Protein (Negative) Urine Ketones (Negative) Urine Blood (Negative) U Epithel Cells (Auto) (0-5) /lpf Staphylococcus sp PCR (NotDetected) mecA/C-Methicil Resis Gene (NotDetected) Staph epidermidis (PCR) (NotDetected) Diagnostic Findings Chest X-Ray 02/18/23 16:04 XR chest 1V portable CLINICAL HISTORY: weakness COMPARISON STUDY: Chest CT March 16, 2021. Chest radiograph January 16, 2023. FINDINGS: There are median sternotomy wires and mediastinal surgical clips. No pneumothorax or pleural effusion is present. A calcified granuloma within the left upper lobe is noted. There is no consolidation or evidence for pulmonary edema. Lung volumes are mildly diminished. IMPRESSION: No acute cardiopulmonary findings. ACT 112: Negative or not required by law. Electronically signed by: Ronny Sanderson M.D. 02/18/2023 5:[address] 02/18/23 16:04 CT OF THE HEAD WITHOUT CONTRAST CLINICAL HISTORY: eliquis, altered COMPARISON STUDY: Head CT and CTA of the head January 16, 2023. MRI of the brain January 17, 2023. TECHNIQUE: Helical axial images of the head were obtained without IV contrast. Automated exposure control was utilized for the study. A dose lowering technique was utilized adhering to the principles of ALARA. FINDINGS: No acute intracranial hemorrhage, midline shift or mass effect is present. White matter hypodensities are unchanged and suggest small vessel disease. Old periventricular infarct within the right frontal lobe is unchanged. The appearance of the brain is unchanged. The ventricular system is unremarkable. The basal cisterns are patent. No extra-axial collections are present. There are no findings to suggest acute dural sinus thrombosis or acute territorial infarct. No significant calvarial abnormalities are present. Visualized portions of the sinuses and mastoid air cells are clear. IMPRESSION: No acute intracranial findings. No change in appearance of the brain. ACT 112: Negative or not required by law. Electronically signed by: Ronny Sanderson M.D. 02/18/2023 4:38 PM Abdomen/Pelvis CT 02/18/23 16:09 CT OF THE ABDOMEN AND PELVIS WITHOUT CONTRAST CLINICAL HISTORY: Possible obstruction. Abdominal pain. Confusion. COMPARISON STUDY: CT of the abdomen and pelvis December 09, 2022. TECHNIQUE: Axial images of the abdomen and pelvis were obtained without IV contrast. Images were reviewed in the axial, sagittal, and coronal planes. Automated exposure control was utilized for the study. A dose lowering technique was utilized adhering to the principles of ALARA. FINDINGS: No pneumatosis, free air or portal venous gas is present. The gallbladder is moderately distended. However, there is no adjacent infiltration. Evaluation of the abdomen and pelvis is suboptimal on this unenhanced exam. The appearance of the liver is unchanged. Mild splenomegaly is unchanged. Adrenal glands and pancreas are unremarkable. There is marked left renal atrophy. There are multiple punctate right renal calculi. No ureteral calculi. No hydronephrosis. Plata balloon within the bladder is present. There is no evidence for a bowel obstruction. A few colonic diverticula are noted without evidence for acute diverticulitis. No evidence for acute appendicitis. There is no lymphadenopathy. There are no acute fractures within the visualized skeletal structures. IMPRESSION: 1. No bowel obstruction. 2. Multiple punctate right renal calculi. No ureteral calculi. No hydronephrosis. 3. Moderate gallbladder distention. No pericholecystic infiltration to strongly suggest acute cholecystitis however if right upper quadrant pain, ultrasound is recommend. ACT 112: Negative or not required by law. Electronically signed by: Ronny Sanderson M.D. 02/18/2023 4:43 PM PG Care Time/CCT Total # of Minutes Spent Total Time Spent with Patient: Total time spent is greater than 50% in coordination of care (as documented) at patient's floor/unit and/or counseling patient: Coding Level of Care Code 72204 SUB INP/OBS CARE 2/35MIN Diagnoses Encephalopathy G93.40 Acute dehydration E86.0 Leukocytosis D72.829 Leukocytosis type: unspecified History of stroke Z86.73 PAF (paroxysmal atrial fibrillation) I48.0 Ambulatory dysfunction R26.2 HTN (hypertension) I10 Hypertension type: essential hypertension CKD (chronic kidney disease) stage 3, GFR 30-59 ml/min N18.30 CAD (coronary artery disease) I25.110 Associated angina: with unstable angina Coronary Disease-Associated Artery/Lesion type: [place] artery [place] vs. transplanted heart: [place] heart DM (diabetes mellitus) E11.9 Diabetes mellitus type: type 2 Diabetes mellitus long-term insulin use: without oil heaterman use Diabetes mellitus complication status: without complication GERD (gastroesophageal reflux disease) K21.9 Esophagitis presence: esophagitis presence not specified Restless leg syndrome G25.81 S/P CABG x 3 Z95.1 Left hemiplegia G81.94 Nonsustained ventricular tachycardia I47.29 (3) Leukocytosis Leukocytosis type: unspecified Qualified Code(s): D72.829 - Elevated white blood cell count, unspecified (7) HTN (hypertension) Hypertension type: essential hypertension Qualified Code(s): I10 - Essential (primary) hypertension (9) CAD (coronary artery disease) Associated angina: with unstable angina Coronary Disease-Associated Artery/Lesion type: [place] artery [place] vs. transplanted heart: [place] heart Qualified Code(s): I25.110 - Atherosclerotic heart disease of [place] coronary artery with unstable angina pectoris (10) DM (diabetes mellitus) Diabetes mellitus type: type 2 Diabetes mellitus long-term insulin use: without oil heaterman use Diabetes mellitus complication status: without complication Qualified Code(s): E11.9 - Type 2 diabetes mellitus without complications (11) GERD (gastroesophageal reflux disease) Esophagitis presence: esophagitis presence not specified Qualified Code(s): K21.9 - Gastro-esophageal reflux disease without esophagitis
--- NOTE | 2023-02-19 14:39 | Electrocardiogram Report ---
Test Reason : Blood Pressure : / mmHG Vent. Rate : 126 BPM Atrial Rate : 126 BPM P-R Int : 174 ms QRS Dur : 082 ms QT Int : 312 ms P-R-T Axes : 043 -28 040 degrees QTc Int : 451 ms Poor data quality, interpretation may be adversely affected Sinus tachycardia Otherwise normal ECG When compared with ECG of 16-JAN-2023 15:57, Vent. rate has increased BY 69 BPM Confirmed by Horacio Penaloza ([id number]) on 02/19/2023 2:39:42 PM Referred By: Confirmed By:Horacio Penaloza
[2023-02-19] MEDS: METOPROLOL SUCC 50MG EXT REL TAB PO SCH (20:50)
[2023-02-20] MEDS ORDERED: VANCOMYCIN HCL 1,000 MG in SODIUM CHLORIDE 0.9% 250 ML IV SCH
[2023-02-20 00:01] LABS: Rapid Plasma Reagin Nonreactive (Nonreactive)
[2023-02-20] MEDS: MELATONIN 3 MG TAB PO PRN (00:49)
[2023-02-20] MEDS ORDERED: ACETAMINOPHEN 500 MG TAB PO PRN (01:30)
[2023-02-20] MEDS ORDERED: DICLOFENAC SOD 1% GEL 100 GM TUBE EXT SCH (06:00)
[2023-02-20 06:52] LABS: Hematocrit (blood only) 37.3 % (42.0-52.0); Hemoglobin 12.6 g/dl (14.0-18.0); Mean Corpuscular Hemoglobin 30.5 pg (25.0-34.0); Mean Corpuscular Hgb Conc 33.8 g/dL (32.0-36.0); Mean Corpuscular Volume 90.3 fL (80.0-100.0); Mean Platelet Volume 11.4 fL (9.4-12.4); Platelet Count 132 K/uL (130-400); RDW Coefficient of Variation 13.2 % (11.5-14.5); RDW Standard Deviation 43.6 fL (36.4-46.3); Red Blood Count 4.13 M/uL (4.70-6.10); White Blood Count 7.39 K/ul (4.8-10.8)
[2023-02-20] MEDS: SODIUM CHLORIDE 0.9% 1000ML 1,000 ML IV SCH (07:11)
[2023-02-20 07:31] LABS: BUN Creatinine Ratio 15.2 (10-20); Calcium 8.3 mg/dl (8.6-10.3); Creatinine Clr Calc Pharmacy 49.1 ml/min; Est GFR (Non-African American) 55.2 ml/min; Potassium 3.9 mmol/L (3.5-5.1)
[2023-02-20] MEDS: DICLOFENAC SOD 1% GEL 100 GM TUBE EXT PRN (09:22)
[2023-02-20] MEDS: TAMSULOSIN HCL 0.4 MG CAP PO SCH (09:28)
[2023-02-20] MEDS: CLOPIDOGREL BISULFATE 75 MG TAB PO SCH (09:29)
[2023-02-20] MEDS: EZETIMIBE 10 MG TABLET PO SCH (09:29)
[2023-02-20] MEDS: PANTOprazole 40 MG TAB PO SCH (09:29)
[2023-02-20] MEDS: lisinopril 10 MG TAB PO SCH (09:29)
[2023-02-20] MEDS: CEROVITE ADV FORMULA TAB PO SCH (09:29)
[2023-02-20] MEDS: POLYETHYLENE (MIRALAX) 17 GM PACK PO SCH (09:30)
[2023-02-20] MEDS: APIXABAN 5 MG TABLET PO SCH ×2 (09:30→21:06)
[2023-02-20] MEDS: amLODIPine BESYLATE 5 MG TAB PO SCH (09:30)
--- NOTE | 2023-02-20 12:20 | Hospitalist Progress Note ---
Date of Service February 20, 2023 Assessment & Plan (1) Encephalopathy: Plan: 77 y/o male with a PMHx of CVA with subsequent left sided hemiparesis, a fib on Eliquis, CKD III, CAD s/p CABG x3 stent placement, HTN, GERD, and RLS presented with poor PO intake and change in mental status admitted for acute encephalopathy, dehydration, and medication non-adherence. #Encephalopathy Patient seen last month for similar symptomatology. Thorough workup was completed including CK, TSH, T3, T4, Head CT, MRI Brain - no changes in comparison to 06/2022, CTA Head and Neck - right external carotid stenosis without indication for intervention. Patient had recently started baclofen which may have contributed to symptoms. Change in mental status likely multifactorial with decreased PO intake, recent fall, medication non-adherence and thus hypertensive state etc. Patient likely has a lower threshold for encephalopathy with his CVA history. Home medications have been resumed. Significantly improved today. -supportive care -encourage good sleep/wake cycles -Discontinue IV fluids -Continue home meds Reached out to daughter, Najma. She thinks that he may not have taken his medications correctly. Blood culture positive in 1 of 2 bottles for Staph epidermidis. Ordered a dose of vancomycin. Other bottles remain negative. Discontinue vancomycin. No fever or leukocytosis to support the diagnosis of a true infection. Could be a contaminant. (2) Acute dehydration: Plan: Mental status could be related to recent poor PO intake and dehydration. Adequately fluid resuscitated with 1.5 L NS. Discontinue IV fluids now that the mental status is much improved. (3) Leukocytosis: Plan: Likely hemoconcentrated in the setting of dehydration. Less likely infectious cause - CXR without notable consolidation, UA neg. Will trend - AM CBC Leukocytosis resolved. (4) History of stroke: Plan: With left hemiparesis. No acute issues. CT Head unchanged from prior. Continue Plavix, Eliquis, Zetia (5) PAF (paroxysmal atrial fibrillation): Plan: Sinus tachycardia on EKG. Restart home metoprolol. On Plavix and Eliquis - Monitor on tele (6) Ambulatory dysfunction: Plan: PT/OT on board. Likely will need assistance with ADLs. Case management involved. The daughter is very uncomfortable with the discharge plan to home. She would want PT/OT, case management involved. She is afraid that if he is sent home, he will go back in the cycle of medication nonadherence and then come back to the hospital. (7) HTN (hypertension): Plan: Patient was not taking his home meds for the last few days. Likely why he was hypertensive upon admission. Restarted home meds and continue to monitor - amlodipine, lisinopril, and metoprolol (8) CKD (chronic kidney disease) stage 3, GFR 30-59 ml/min: Plan: Cr 1.35 this admission. IVF as patient likely dehydrated. Monitor intake and output. Creatinine down to 1.25 today (9) CAD (coronary artery disease): Plan: Chronic and Stable.Continue Plavix, Zetia, metoprolol, lisinopril, Eliquis -s/p CABG x August 2020 (10) DM (diabetes mellitus): Plan: Chronic and stable. HgbA1C 6.7. Carb consistent diet. (11) GERD (gastroesophageal reflux disease): Plan: Chronic and Stable.Continue Protonix while hospitalized (omeprazole at home) (12) Restless leg syndrome: Plan: Chronic and Stable.Continue ropinirole (13) S/P CABG x 3: (14) Left hemiplegia: (15) Nonsustained ventricular tachycardia: Plan: Patient had an episode of nonsustained V. tach. Potassium 3.9 Mag 1.8 Increase the dose of metoprolol to home dose 50 p.o. nightly Plan Code: DNR/DNI DVT ppx: Eliquis Plavix GI ppx: pantoprazole FENGI: heart healthy carb consistent diet IVF NS 80 mL/hr Dispo: likely will need SNF placement Admission and Anticipated Discharge Date Admission Date: February 18, 2023 Subjective Patient is awake today. He is able to hold a conversation. Still slightly confused but much better than yesterday. Spoke to daughter Najma on the phone. She does not think that the patient should be discharged to home without 24/7 support. She would like for the patient to be in the hospital until a safe discharge plan is set up Review of Systems Review of Systems: All systems reviewed & are unremarkable except as noted in Subjective Physical Exam Physical Exam: General: Awake, conversant. Pleasantly confused Heart: S1, S2/regular rate and rhythm, no murmur rubs or gallops Lungs: Clear to auscultation bilaterally. Normal effort Abdomen: Soft/nontender/nondistended. No hepatosplenomegaly Extremities: No clubbing/cyanosis. No edema Behavior: Appropriate, cooperative Results & Data Results & Data Vital Signs (Past 12 Hours) Vital Signs Temp Pulse Pulse Pulse Resp BP Pulse Ox 02/20/23 12:05 36.4 C L 50 L 18 101/54 L 95 02/20/23 09:28 63 106/67 02/20/23 08:12 57 L 02/20/23 07:10 36.9 C 62 18 94/53 L 96 02/20/23 04:01 36.6 C 58 L 18 117/57 L 93 02/20/23 01:19 106/59 L 02/20/23 01:02 63 O2 Del Method 02/20/23 12:05 Room Air 02/20/23 09:28 02/20/23 08:12 02/20/23 07:10 Room Air 02/20/23 04:01 Room Air 02/20/23 01:19 02/20/23 01:02 Laboratory Results Abnormal lab results 02/18/23 02/20/23 02/20/23 Range/Units 16:10 06:22 06:22 RBC 4.13 L (4.70-6.10) M/uL Hgb 12.6 L (14.0-18.0) g/dl Hct 37.3 L (42.0-52.0) % Chloride 113 H (98-107) mmol/L Glucose 106 H (70-99(Fasting)) mg/dl POC Glucose (70-99) mg/dl Calcium 8.3 L (8.6-10.3) mg/dl Staphylococcus sp PCR DETECTED A (NotDetected) mecA/C-Methicil Resis Gene DETECTED A (NotDetected) Staph epidermidis (PCR) DETECTED A (NotDetected) 02/20/23 Range/Units 11:17 RBC (4.70-6.10) M/uL Hgb (14.0-18.0) g/dl Hct (42.0-52.0) % Chloride (98-107) mmol/L Glucose (70-99(Fasting)) mg/dl POC Glucose 172 H (70-99) mg/dl Calcium (8.6-10.3) mg/dl Staphylococcus sp PCR (NotDetected) mecA/C-Methicil Resis Gene (NotDetected) Staph epidermidis (PCR) (NotDetected) PG Care Time/CCT Total # of Minutes Spent Total Time Spent with Patient: Total time spent is greater than 50% in coordination of care (as documented) at patient's floor/unit and/or counseling patient: Coding Level of Care Code 09734 SUB INP/OBS CARE 2/35MIN Diagnoses Encephalopathy G93.40 Acute dehydration E86.0 Leukocytosis D72.829 Leukocytosis type: unspecified History of stroke Z86.73 PAF (paroxysmal atrial fibrillation) I48.0 Ambulatory dysfunction R26.2 HTN (hypertension) I10 Hypertension type: essential hypertension CKD (chronic kidney disease) stage 3, GFR 30-59 ml/min N18.30 CAD (coronary artery disease) I25.110 Associated angina: with unstable angina Coronary Disease-Associated Artery/Lesion type: [place] artery [place] vs. transplanted heart: [place] heart DM (diabetes mellitus) E11.9 Diabetes mellitus type: type 2 Diabetes mellitus correction insulin use: without long term care administrator use Diabetes mellitus complication status: without complication GERD (gastroesophageal reflux disease) K21.9 Esophagitis presence: esophagitis presence not specified Restless leg syndrome G25.81 S/P CABG x 3 Z95.1 Left hemiplegia G81.94 Nonsustained ventricular tachycardia I47.29 (3) Leukocytosis Leukocytosis type: unspecified Qualified Code(s): D72.829 - Elevated white blood cell count, unspecified (7) HTN (hypertension) Hypertension type: essential hypertension Qualified Code(s): I10 - Essential (primary) hypertension (9) CAD (coronary artery disease) Associated angina: with unstable angina Coronary Disease-Associated Artery/Lesion type: [place] artery [place] vs. transplanted heart: [place] heart Qualified Code(s): I25.110 - Atherosclerotic heart disease of [place] coronary artery with unstable angina pectoris (10) DM (diabetes mellitus) Diabetes mellitus type: type 2 Diabetes mellitus correction insulin use: without long term care administrator use Diabetes mellitus complication status: without complication Qualified Code(s): E11.9 - Type 2 diabetes mellitus without complications (11) GERD (gastroesophageal reflux disease) Esophagitis presence: esophagitis presence not specified Qualified Code(s): K21.9 - Gastro-esophageal reflux disease without esophagitis
[2023-02-20] MEDS: rOPINIRole HCL 0.25 MG TABLET PO SCH (21:05)
[2023-02-20] MEDS: METOPROLOL SUCC 50MG EXT REL TAB PO SCH (21:06)
[2023-02-21 07:07] LABS: Hematocrit (blood only) 35.8 % (42.0-52.0); Hemoglobin 12.3 g/dl (14.0-18.0); Mean Corpuscular Hemoglobin 30.8 pg (25.0-34.0); Mean Corpuscular Hgb Conc 34.4 g/dL (32.0-36.0); Mean Corpuscular Volume 89.7 fL (80.0-100.0); Mean Platelet Volume 11.9 fL (9.4-12.4); Platelet Count 125 K/uL (130-400); RDW Coefficient of Variation 12.8 % (11.5-14.5); RDW Standard Deviation 42.3 fL (36.4-46.3); Red Blood Count 3.99 M/uL (4.70-6.10)
[2023-02-21 07:33] LABS: Calcium 8.5 mg/dl (8.6-10.3); Creatinine Clr Calc Pharmacy 52.8 ml/min; Est GFR (African American) 66.5 ml/min; Est GFR (Non-African American) 57.4 ml/min; Potassium 3.7 mmol/L (3.5-5.1)
[2023-02-21] MEDS: lisinopril 10 MG TAB PO SCH (08:43)
[2023-02-21] MEDS: TAMSULOSIN HCL 0.4 MG CAP PO SCH (08:43)
[2023-02-21] MEDS: APIXABAN 5 MG TABLET PO SCH ×2 (08:43→20:38)
[2023-02-21] MEDS: CLOPIDOGREL BISULFATE 75 MG TAB PO SCH (08:43)
[2023-02-21] MEDS: PANTOprazole 40 MG TAB PO SCH (08:43)
[2023-02-21] MEDS: EZETIMIBE 10 MG TABLET PO SCH (08:43)
[2023-02-21] MEDS: CEROVITE ADV FORMULA TAB PO SCH (08:43)
[2023-02-21] MEDS: amLODIPine BESYLATE 5 MG TAB PO SCH (08:43)
[2023-02-21] MEDS: POLYETHYLENE (MIRALAX) 17 GM PACK PO SCH (08:44)
--- NOTE | 2023-02-21 11:01 | Hospitalist Progress Note ---
Date of Service February 21, 2023 Assessment & Plan (1) Encephalopathy: Plan: 77 y/o male with a PMHx of CVA with subsequent left sided hemiparesis, a fib on Eliquis, CKD III, CAD s/p CABG x3 stent placement, HTN, GERD, and RLS presented with poor PO intake and change in mental status admitted for acute encephalopathy, dehydration, and medication non-adherence. #Encephalopathy Patient seen last month for similar symptomatology. Thorough workup was completed including CK, TSH, T3, T4, Head CT, MRI Brain - no changes in comparison to 06/2022, CTA Head and Neck - right external carotid stenosis without indication for intervention. Patient had recently started baclofen which may have contributed to symptoms. Change in mental status likely multifactorial with decreased PO intake, recent fall, medication non-adherence and thus hypertensive state etc. Patient likely has a lower threshold for encephalopathy with his CVA history. Home medications have been resumed. Seems to have resolved. -supportive care -encourage good sleep/wake cycles -Continue home meds Reached out to daughterNajma on 02/20. She thinks that he may not have taken his medications correctly. She is uncomfortable with the discharge plan to home. She would like case management to be involved. Blood culture positive in 1 of 2 bottles for Staph epidermidis. Ordered a dose of vancomycin. Other bottles remain negative. Discontinued vancomycin. No fever or leukocytosis to support the diagnosis of a true infection. Could be a contaminant. (2) Acute dehydration: Plan: Mental status could be related to recent poor PO intake and dehydration. Adequately fluid resuscitated with 1.5 L NS. Discontinued IV fluids now that the mental status is much improved. (3) Leukocytosis: Plan: Likely hemoconcentrated in the setting of dehydration. Less likely infectious cause - CXR without notable consolidation, UA neg. Will trend - AM CBC Leukocytosis resolved. (4) History of stroke: Plan: With left hemiparesis. No acute issues. CT Head unchanged from prior. Continue Plavix, Eliquis, Zetia (5) PAF (paroxysmal atrial fibrillation): Plan: Sinus tachycardia on EKG. Restart home metoprolol. On Plavix and Eliquis - Monitor on tele (6) Ambulatory dysfunction: Plan: PT/OT on board. Likely will need assistance with ADLs. Case management invo lved. The daughter is very uncomfortable with the discharge plan to home. She would want PT/OT, case management involved. She is afraid that if he is sent home, he will go back in the cycle of medication nonadherence and then come back to the hospital. (7) HTN (hypertension): Plan: Patient was not taking his home meds for the last few days. Likely why he was hypertensive upon admission. Restarted home meds and continue to monitor - amlodipine, lisinopril, and metoprolol. Blood pressure well controlled on the current regimen. (8) CKD (chronic kidney disease) stage 3, GFR 30-59 ml/min: Plan: Cr 1.35 this admission. IVF as patient likely dehydrated. Monitor intake and output. Creatinine down to 1.25 today (9) CAD (coronary artery disease): Plan: Chronic and Stable.Continue Plavix, Zetia, metoprolol, lisinopril, Eliquis -s/p CABG x 3, August 2020 (10) DM (diabetes mellitus): Plan: Chronic and stable. HgbA1C 6.7. Carb consistent diet. (11) GERD (gastroesophageal reflux disease): Plan: Chronic and Stable.Continue Protonix while hospitalized (omeprazole at home) (12) Restless leg syndrome: Plan: Chronic and Stable.Continue ropinirole (13) S/P CABG x 3: (14) Left hemiplegia: (15) Nonsustained ventricular tachycardia: Plan: Patient had an episode of nonsustained V. tach. Potassium 3.9 Mag 1.8 Increase the dose of metoprolol to home dose 50 p.o. nightly Plan Code: DNR/DNI DVT ppx: Eliquis Plavix GI ppx: pantoprazole FENGI: heart healthy carb consistent diet IVF NS 80 mL/hr Dispo: likely will need SNF placement. Social issues will need to be addressed by case management. Admission and Anticipated Discharge Date Admission Date: February 18, 2023 Subjective Patient feels well today. He is back to his usual baseline. Denies chest pain or shortness of breath. Review of Systems Review of Systems: All systems reviewed & are unremarkable except as noted in Subjective Physical Exam Physical Exam: General: Awake, conversant. Heart: S1, S2/regular rate and rhythm, no murmur rubs or gallops Lungs: Clear to auscultation bilaterally. Normal effort Abdomen: Soft/nontender/nondistended. No hepatosplenomegaly Extremities: No clubbing/cyanosis. No edema Behavior: Appropriate, cooperative Results & Data Results & Data Vital Signs (Past 12 Hours) Vital Signs Temp Pulse Pulse Pulse Resp BP Pulse Ox 02/21/23 08:24 36.4 C L 55 L 18 121/64 95 02/21/23 06:06 57 L 02/20/23 23:50 54 L 02/20/23 23:26 36.7 C 60 20 128/56 L 94 O2 Del Method 02/21/23 08:24 Room Air 02/21/23 06:06 02/20/23 23:50 02/20/23 23:26 Room Air PG Care Time/CCT Total # of Minutes Spent Total Time Spent with Patient: Total time spent is greater than 50% in coordination of care (as documented) at patient's floor/unit and/or counseling patient: Coding Level of Care Code 06814 SUB INP/OBS CARE 2/35MIN Diagnoses Encephalopathy G93.40 Acute dehydration E86.0 Leukocytosis D72.829 Leukocytosis type: unspecified History of stroke Z86.73 PAF (paroxysmal atrial fibrillation) I48.0 Ambulatory dysfunction R26.2 HTN (hypertension) I10 Hypertension type: essential hypertension CKD (chronic kidney disease) stage 3, GFR 30-59 ml/min N18.30 CAD (coronary artery disease) I25.110 Associated angina: with unstable angina Coronary Disease-Associated Artery/Lesion type: [place] artery [place] vs. transplanted heart: [place] heart DM (diabetes mellitus) E11.9 Diabetes mellitus type: type 2 Diabetes mellitus terminal make up operator insulin use: without group home use Diabetes mellitus complication status: without complication GERD (gastroesophageal reflux disease) K21.9 Esophagitis presence: esophagitis presence not specified Restless leg syndrome G25.81 S/P CABG x 3 Z95.1 Left hemiplegia G81.94 Nonsustained ventricular tachycardia I47.29 (3) Leukocytosis Leukocytosis type: unspecified Qualified Code(s): D72.829 - Elevated white blood cell count, unspecified (7) HTN (hypertension) Hypertension type: essential hypertension Qualified Code(s): I10 - Essential (primary) hypertension (9) CAD (coronary artery disease) Associated angina: with unstable angina Coronary Disease-Associated [place] ry/Lesion type: [place] artery [place] vs. transplanted heart: [place] heart Qualified Code(s): I25.110 - Atherosclerotic heart disease of [place] coronary artery with unstable angina pectoris (10) DM (diabetes mellitus) Diabetes mellitus type: type 2 Diabetes mellitus group home insulin use: without terminal make up operator use Diabetes mellitus complication status: without complication Qualified Code(s): E11.9 - Type 2 diabetes mellitus without complications (11) GERD (gastroesophageal reflux disease) Esophagitis presence: esophagitis presence not specified Qualified Code(s): K21.9 - Gastro-esophageal reflux disease without esophagitis
[2023-02-21] MEDS: MELATONIN 3 MG TAB PO PRN (20:37)
[2023-02-21] MEDS: rOPINIRole HCL 0.25 MG TABLET PO SCH (20:37)
[2023-02-21] MEDS: METOPROLOL SUCC 50MG EXT REL TAB PO SCH (20:37)
[2023-02-22] MEDS: PANTOprazole 40 MG TAB PO SCH (09:12)
[2023-02-22] MEDS: POLYETHYLENE (MIRALAX) 17 GM PACK PO SCH (09:13)
[2023-02-22] MEDS: amLODIPine BESYLATE 5 MG TAB PO SCH (09:13)
[2023-02-22] MEDS: APIXABAN 5 MG TABLET PO SCH ×2 (09:13→20:53)
[2023-02-22] MEDS: EZETIMIBE 10 MG TABLET PO SCH (09:13)
[2023-02-22] MEDS: TAMSULOSIN HCL 0.4 MG CAP PO SCH (09:13)
[2023-02-22] MEDS: lisinopril 10 MG TAB PO SCH (09:13)
[2023-02-22] MEDS: CLOPIDOGREL BISULFATE 75 MG TAB PO SCH (09:13)
[2023-02-22] MEDS: CEROVITE ADV FORMULA TAB PO SCH (09:13)
--- NOTE | 2023-02-22 20:31 | Hospitalist Progress Note ---
Date of Service February 22, 2023 Assessment & Plan (1) Encephalopathy: Plan: 77 y/o male with a PMHx of CVA with subsequent left sided hemiparesis, a fib on Eliquis, CKD III, CAD s/p CABG x3 stent placement, HTN, GERD, and RLS presented with poor PO intake and change in mental status admitted for acute encephalopathy, dehydration, and medication non-adherence. #Encephalopathy Patient seen last month for similar symptomatology. Thorough workup was completed including CK, TSH, T3, T4, Head CT, MRI Brain - no changes in comparison to 06/2022, CTA Head and Neck - right external carotid stenosis without indication for intervention. Patient had recently started baclofen which may have contributed to symptoms. Change in mental status likely multifactorial with decreased PO intake, recent fall, medication non-adherence and thus hypertensive state etc. Patient likely has a lower threshold for encephalopathy with his CVA history. Home medications have been resumed. Seems to have resolved. -supportive care -encourage good sleep/wake cycles -Continue home meds Reached out to daughterNajma on 02/20. She thinks that he may not have taken his medications correctly. She is uncomfortable with the discharge plan to home. She would like case management to be involved. Blood culture positive in 1 of 2 bottles for Staph epidermidis. Ordered a dose of vancomycin. Other bottles remain negative. Discontinued vancomycin. No fever or leukocytosis to support the diagnosis of a true infection. Could be a contaminant. (2) Acute dehydration: Plan: Mental status could be related to recent poor PO intake and dehydration. Adequately fluid resuscitated with 1.5 L NS. Discontinued IV fluids now that the mental status is much improved. (3) Leukocytosis: Plan: Likely hemoconcentrated in the setting of dehydration. Less likely infectious cause - CXR without notable consolidation, UA neg. Will trend - AM CBC Leukocytosis resolved. (4) History of stroke: Plan: With left hemiparesis. No acute issues. CT Head unchanged from prior. Continue Plavix, Eliquis, Zetia (5) PAF (paroxysmal atrial fibrillation): Plan: Sinus tachycardia on EKG. Restart home metoprolol. On Plavix and Eliquis - Monitor on tele (6) Ambulatory dysfunction: Plan: PT/OT on board. Likely will need assistance with ADLs. Case management invo lved. The daughter is very uncomfortable with the discharge plan to home. She would want PT/OT, case management involved. She is afraid that if he is sent home, he will go back in the cycle of medication nonadherence and then come back to the hospital. (7) HTN (hypertension): Plan: Patient was not taking his home meds for the last few days. Likely why he was hypertensive upon admission. Restarted home meds and continue to monitor - amlodipine, lisinopril, and metoprolol. Blood pressure well controlled on the current regimen. (8) CKD (chronic kidney disease) stage 3, GFR 30-59 ml/min: Plan: Cr 1.35 this admission. IVF as patient likely dehydrated. Monitor intake and output. Creatinine down to 1.25 today (9) CAD (coronary artery disease): Plan: Chronic and Stable.Continue Plavix, Zetia, metoprolol, lisinopril, Eliquis -s/p CABG x 3, August 2020 (10) DM (diabetes mellitus): Plan: Chronic and stable. HgbA1C 6.7. Carb consistent diet. (11) GERD (gastroesophageal reflux disease): Plan: Chronic and Stable.Continue Protonix while hospitalized (omeprazole at home) (12) Restless leg syndrome: Plan: Chronic and Stable.Continue ropinirole (13) S/P CABG x 3: (14) Left hemiplegia: (15) Nonsustained ventricular tachycardia: Plan: Patient had an episode of nonsustained V. tach. Potassium 3.9 Mag 1.8 Increase the dose of metoprolol to home dose 50 p.o. nightly Plan Code: DNR/DNI DVT ppx: Eliquis Plavix GI ppx: pantoprazole FENGI: heart healthy carb consistent diet IVF NS 80 mL/hr Dispo: likely will need SNF placement. Social issues will need to be addressed by case management. Admission and Anticipated Discharge Date Admission Date: February 18, 2023 Subjective I was able to review patient's history again on today day 4 of hospitalization. This 77-year-old man was at a personal [facility] until 1 week ago and signed still felt and then went home again stopped his medications and shortly thereafter came to the emergency room with altered mental status. He was diagnosed with toxic encephalopathy due to gabapentin and slowly improving during this hospital stay. His daughters are Katharina Oneil under rate [phone] and Paulina number not specified yet as both are her caretakers. Patient is / . Patient's daughters fear of the worst if he goes home as her encouraged him to go back to half-way facility. Patient admits to feeling about 25% better than he did feel when he entered the hospital here and is admitting to needing physical therapy and Occupational Therapy. Review of Systems Review of Systems: Unobtainable due to cognitive status Results & Data Results & Data Vital Signs (Past 12 Hours) Vital Signs Temp Pulse Pulse Pulse Resp BP Pulse Ox 02/22/23 19:00 36.4 C L 62 20 134/69 93 02/22/23 15:57 57 L 02/22/23 15:15 36.3 C L 59 L 18 124/72 94 02/22/23 11:30 36.9 C 56 L 18 121/71 95 O2 Del Method 02/22/23 19:00 Room Air 02/22/23 15:57 02/22/23 15:15 Room Air 02/22/23 11:30 Room Air PG Care Time/CCT Total # of Minutes Spent Total Time Spent with Patient: Total time spent is greater than 50% in coordination of care (as documented) at patient's floor/unit and/or counseling patient: Coding Level of Care Code 47730 SUB INP/OBS CARE 3/50MIN Diagnoses Encephalopathy G93.40 Acute dehydration E86.0 Leukocytosis D72.829 Leukocytosis type: unspecified History of stroke Z86.73 PAF (paroxysmal atrial fibrillation) I48.0 Ambulatory dysfunction R26.2 HTN (hypertension) I10 Hypertension type: essential hypertension CKD (chronic kidney disease) stage 3, GFR 30-59 ml/min N18.30 CAD (coronary artery disease) I25.110 Associated angina: with unstable angina Coronary Disease-Associated Artery/Lesion type: [place] artery [place] vs. transplanted heart: [place] heart DM (diabetes mellitus) E11.9 Diabetes mellitus type: type 2 Diabetes mellitus group home insulin use: without exterminator helper termite use Diabetes mellitus complication status: without complication GERD (gastroesophageal reflux disease) K21.9 Esophagitis presence: esophagitis presence not specified Restless leg syndrome G25.81 S/P CABG x 3 Z95.1 Left hemiplegia G81.94 Nonsustained ventricular tachycardia I47.29 Time Spent (min) 50 (3) Leukocytosis Leukocytosis type: unspecified Qualified Code(s): D72.829 - Elevated white blood cell count, unspecified (7) HTN (hypertension) Hypertension type: essential hypertension Qualified Code(s): I10 - Essential (primary) hypertension (9) CAD (coronary artery disease) Associated angina: with unstable angina Coronary Disease-Associated Artery/Lesion type: [place] artery [place] vs. transplanted heart: [place] heart Qualified Code(s): I25.110 - Atherosclerotic heart disease of [place] coronary artery with unstable angina pectoris (10) DM (diabetes mellitus) Diabetes mellitus type: type 2 Diabetes mellitus exterminator helper termite insulin use: without exterminator helper termite use Diabetes mellitus complication status: without complication Qualified Code(s): E11.9 - Type 2 diabetes mellitus without complications (11) GERD (gastroesophageal reflux disease) Esophagitis presence: esophagitis presence not specified Qualified Code(s): K21.9 - Gastro-esophageal reflux disease without esophagitis
[2023-02-22] MEDS: MELATONIN 3 MG TAB PO PRN (20:52)
[2023-02-22] MEDS: rOPINIRole HCL 0.25 MG TABLET PO SCH (20:53)
[2023-02-22] MEDS: METOPROLOL SUCC 50MG EXT REL TAB PO SCH (20:53)
[2023-02-23] MEDS: APIXABAN 5 MG TABLET PO SCH ×2 (09:09→21:27)
[2023-02-23] MEDS: amLODIPine BESYLATE 5 MG TAB PO SCH (09:09)
[2023-02-23] MEDS: CLOPIDOGREL BISULFATE 75 MG TAB PO SCH (09:09)
[2023-02-23] MEDS: PANTOprazole 40 MG TAB PO SCH (09:10)
[2023-02-23] MEDS: lisinopril 10 MG TAB PO SCH (09:10)
[2023-02-23] MEDS: TAMSULOSIN HCL 0.4 MG CAP PO SCH (09:10)
[2023-02-23] MEDS: CEROVITE ADV FORMULA TAB PO SCH (09:10)
[2023-02-23] MEDS: EZETIMIBE 10 MG TABLET PO SCH (09:10)
[2023-02-23] MEDS: POLYETHYLENE (MIRALAX) 17 GM PACK PO SCH ×2 (09:10→09:31)
[2023-02-23] MEDS: SENNA 8.6 MG TAB PO PRN (10:47)
[2023-02-23] MEDS: MELATONIN 3 MG TAB PO PRN (21:27)
[2023-02-23] MEDS: rOPINIRole HCL 0.25 MG TABLET PO SCH (21:27)
[2023-02-23] MEDS: METOPROLOL SUCC 50MG EXT REL TAB PO SCH (21:28)
--- NOTE | 2023-02-24 07:17 | Hospitalist Progress Note ---
Date of Service February 23, 2023 Assessment & Plan (1) Encephalopathy: Plan: 77 y/o male with a PMHx of CVA with subsequent left sided hemiparesis, a fib on Eliquis, CKD III, CAD s/p CABG x3 stent placement, HTN, GERD, and RLS presented with poor PO intake and change in mental status admitted for acute encephalopathy, dehydration, and medication non-adherence. #Encephalopathy Patient seen last month for similar symptomatology. Thorough workup was completed including CK, TSH, T3, T4, Head CT, MRI Brain - no changes in comparison to 06/2022, CTA Head and Neck - right external carotid stenosis without indication for intervention. Patient had recently started baclofen which may have contributed to symptoms. Change in mental status likely multifactorial with decreased PO intake, recent fall, medication non-adherence and thus hypertensive state etc. Patient likely has a lower threshold for encephalopathy with his CVA history. Home medications have been resumed. Seems to have resolved. -supportive care -encourage good sleep/wake cycles -Continue home meds Reached out to daughterNajma on 02/20. She thinks that he may not have taken his medications correctly. She is uncomfortable with the discharge plan to home. She would like case management to be involved. Blood culture positive in 1 of 2 bottles for Staph epidermidis. Ordered a dose of vancomycin. Other bottles remain negative. Discontinued vancomycin. No fever or leukocytosis to support the diagnosis of a true infection. Could be a contaminant. (2) Acute dehydration: Plan: Mental status could be related to recent poor PO intake and dehydration. Adequately fluid resuscitated with 1.5 L NS. Discontinued IV fluids now that the mental status is much improved. (3) Leukocytosis: Plan: Likely hemoconcentrated in the setting of dehydration. Less likely infectious cause - CXR without notable consolidation, UA neg. Will trend - AM CBC Leukocytosis resolved. (4) History of stroke: Plan: With left hemiparesis. No acute issues. CT Head unchanged from prior. Continue Plavix, Eliquis, Zetia (5) PAF (paroxysmal atrial fibrillation): Plan: Sinus tachycardia on EKG. Restart home metoprolol. On Plavix and Eliquis - Monitor on tele (6) Ambulatory dysfunction: Plan: PT/OT on board. Likely will need assistance with ADLs. Case management invo lved. The daughter is very uncomfortable with the discharge plan to home. She would want PT/OT, case management involved. She is afraid that if he is sent home, he will go back in the cycle of medication nonadherence and then come back to the hospital. (7) HTN (hypertension): Plan: Patient was not taking his home meds for the last few days. Likely why he was hypertensive upon admission. Restarted home meds and continue to monitor - amlodipine, lisinopril, and metoprolol. Blood pressure well controlled on the current regimen. (8) CKD (chronic kidney disease) stage 3, GFR 30-59 ml/min: Plan: Cr 1.35 this admission. IVF as patient likely dehydrated. Monitor intake and output. Creatinine down to 1.25 today (9) CAD (coronary artery disease): Plan: Chronic and Stable.Continue Plavix, Zetia, metoprolol, lisinopril, Eliquis -s/p CABG x 3, August 2020 (10) DM (diabetes mellitus): Plan: Chronic and stable. HgbA1C 6.7. Carb consistent diet. (11) GERD (gastroesophageal reflux disease): Plan: Chronic and Stable.Continue Protonix while hospitalized (omeprazole at home) (12) Restless leg syndrome: Plan: Chronic and Stable.Continue ropinirole (13) S/P CABG x 3: (14) Left hemiplegia: (15) Nonsustained ventricular tachycardia: Plan: Patient had an episode of nonsustained V. tach. Potassium 3.9 Mag 1.8 Increase the dose of metoprolol to home dose 50 p.o. nightly Plan Code: DNR/DNI DVT ppx: Eliquis Plavix GI ppx: pantoprazole FENGI: heart healthy carb consistent diet IVF NS 80 mL/hr Dispo: likely will need SNF placement. Social issues will need to be addressed by case management. Admission and Anticipated Discharge Date Admission Date: February 18, 2023 Subjective Today at 0730 patient has 10 second run PAT asymptomatic , followed by Vital signs stable. Results & Data Results & Data Vital Signs (Past 12 Hours) Vital Signs Temp Pulse Pulse Resp BP Pulse Ox O2 Del Method 02/24/23 01:09 80 02/23/23 22:00 36.7 C 83 18 120/73 94 Room Air PG Care Time/CCT Total # of Minutes Spent Total Time Spent with Patient: Total time spent is greater than 50% in coordination of care (as documented) at patient's floor/unit and/or counseling patient: Coding Level of Care Code 73856 SUB INP/OBS CARE 3/50MIN Diagnoses Encephalopathy G93.40 Acute dehydration E86.0 Leukocytosis D72.829 Leukocytosis type: unspecified History of stroke Z86.73 PAF (paroxysmal atrial fibrillation) I48.0 Ambulatory dysfunction R26.2 HTN (hypertension) I10 Hypertension type: essential hypertension CKD (chronic kidney disease) stage 3, GFR 30-59 ml/min N18.30 CAD (coronary artery disease) I25.110 Associated angina: with unstable angina Coronary Disease-Associated Artery/Lesion type: [place] artery [place] vs. transplanted heart: [place] heart DM (diabetes mellitus) E11.9 Diabetes mellitus type: type 2 Diabetes mellitus terminal carman insulin use: without terminal carman use Diabetes mellitus complication status: without complication GERD (gastroesophageal reflux disease) K21.9 Esophagitis presence: esophagitis presence not specified Restless leg syndrome G25.81 S/P CABG x 3 Z95.1 Left hemiplegia G81.94 Nonsustained ventricular tachycardia I47.29 (3) Leukocytosis Leukocytosis type: unspecified Qualified Code(s): D72.829 - Elevated white blood cell count, unspecified (7) HTN (hypertension) Hypertension type: essential hypertension Qualified Code(s): I10 - Essential (primary) hypertension (9) CAD (coronary artery disease) Associated angina: with unstable angina Coronary Disease-Associated Arter y/Lesion type: [place] artery [place] vs. transplanted heart: [place] heart Qualified Code(s): I25.110 - Atherosclerotic heart disease of [place] coronary artery with unstable angina pectoris (10) DM (diabetes mellitus) Diabetes mellitus type: type 2 Diabetes mellitus terminal carman insulin use: without terminal carman use Diabetes mellitus complication status: without complication Qualified Code(s): E11.9 - Type 2 diabetes mellitus without complications (11) GERD (gastroesophageal reflux disease) Esophagitis presence: esophagitis presence not specified Qualified Code(s): K21.9 - Gastro-esophageal reflux disease without esophagitis
[2023-02-24] MEDS: POLYETHYLENE (MIRALAX) 17 GM PACK PO SCH (08:37)
[2023-02-24] MEDS: PANTOprazole 40 MG TAB PO SCH (08:40)
[2023-02-24] MEDS: amLODIPine BESYLATE 5 MG TAB PO SCH (08:40)
[2023-02-24] MEDS: lisinopril 10 MG TAB PO SCH (08:40)
[2023-02-24] MEDS: CLOPIDOGREL BISULFATE 75 MG TAB PO SCH (08:40)
[2023-02-24] MEDS: EZETIMIBE 10 MG TABLET PO SCH (08:40)
[2023-02-24] MEDS: TAMSULOSIN HCL 0.4 MG CAP PO SCH (08:40)
[2023-02-24] MEDS: APIXABAN 5 MG TABLET PO SCH ×2 (08:40→20:01)
[2023-02-24] MEDS: CEROVITE ADV FORMULA TAB PO SCH (08:40)
[2023-02-24] MEDS: rOPINIRole HCL 0.25 MG TABLET PO SCH (20:01)
[2023-02-24] MEDS: METOPROLOL SUCC 50MG EXT REL TAB PO SCH (20:01)
--- NOTE | 2023-02-24 20:29 | Hospitalist Progress Note ---
Date of Service February 24, 2023 Assessment & Plan (1) Encephalopathy: Plan: 77 y/o male with a PMHx of CVA with subsequent left sided hemiparesis, a fib on Eliquis, CKD III, CAD s/p CABG x3 stent placement, HTN, GERD, and RLS presented with poor PO intake and change in mental status admitted for acute encephalopathy, dehydration, and medication non-adherence. #Encephalopathy Patient seen last month for similar symptomatology. Thorough workup was completed including CK, TSH, T3, T4, Head CT, MRI Brain - no changes in comparison to 06/2022, CTA Head and Neck - right external carotid stenosis without indication for intervention. Patient had recently started baclofen which may have contributed to symptoms. Change in mental status likely multifactorial with decreased PO intake, recent fall, medication non-adherence and thus hypertensive state etc. Patient likely has a lower threshold for encephalopathy with his CVA history. Home medications have been resumed. Seems to have resolved. -supportive care -encourage good sleep/wake cycles -Continue home meds Reached out to daughter, Najma on 02/20. She thinks that he may not have taken his medications correctly. She is uncomfortable with the discharge plan to home. She would like case management to be involved. Blood culture positive in 1 of 2 bottles for Staph epidermidis. Ordered a dose of vancomycin. Other bottles remain negative. Discontinued vancomycin. No fever or leukocytosis to support the diagnosis of a true infection. Could be a contaminant. (2) Acute dehydration: Plan: Mental status could be related to recent poor PO intake and dehydration. Adequately fluid resuscitated with 1.5 L NS. Discontinued IV fluids now that the mental status is much improved. Present on Admission?: Yes (3) Leukocytosis: Plan: Likely hemoconcentrated in the setting of dehydration. Less likely infectious cause - CXR without notable consolidation, UA neg. Will trend - AM CBC Leukocytosis resolved. Present on Admission?: Yes (4) History of stroke: Plan: With left hemiparesis. No acute issues. CT Head unchanged from prior. Continue Plavix, Eliquis, Zetia Present on Admission?: Yes (5) PAF (paroxysmal atrial fibrillation): Plan: Sinus tachycardia on EKG. Restart home metoprolol. On Plavix and Eliquis - Monitor on tele (6) Ambulatory dysfunction: Plan: PT/OT on board. Likely will need assistance with ADLs. Case management involved. The daughter is very uncomfortable with the discharge plan to home. She would want PT/OT, case management involved. She is afraid that if he is sent home, he will go back in the cycle of medication nonadherence and then come back to the hospital. (7) HTN (hypertension): Plan: Patient was not taking his home meds for the last few days. Likely why he was hypertensive upon admission. Restarted home meds and continue to monitor - amlodipine, lisinopril, and metoprolol. Blood pressure well controlled on the current regimen. (8) CKD (chronic kidney disease) stage 3, GFR 30-59 ml/min: Plan: Cr 1.35 this admission. IVF as patient likely dehydrated. Monitor intake and output. Creatinine down to 1.25 today (9) CAD (coronary artery disease): Plan: Chronic and Stable.Continue Plavix, Zetia, metoprolol, lisinopril, Eliquis -s/p CABG x August 2020 (10) DM (diabetes mellitus): Plan: Chronic and stable. HgbA1C 6.7. Carb consistent diet. (11) GERD (gastroesophageal reflux disease): Plan: Chronic and Stable.Continue Protonix while hospitalized (omeprazole at home) (12) Restless leg syndrome: Plan: Chronic and Stable.Continue ropinirole (13) S/P CABG x 3: (14) Left hemiplegia: (15) Nonsustained ventricular tachycardia: Plan: Patient had an episode of nonsustained V. tach. Potassium 3.9 Mag 1.8 Increase the dose of metoprolol to home dose 50 p.o. nightly Plan Code: DNR/DNI DVT ppx: Eliquis Plavix GI ppx: pantoprazole FENGI: heart healthy carb consistent diet IVF NS 80 mL/hr Dispo: likely will need SNF placement. Social issues will need to be addressed by case management. Admission and Anticipated Discharge Date Admission Date: February 18, 2023 Subjective Data reviewed chart reviewed and patient seen and examined during hospitalist rounds. Patient seems generally tired and fatigued in the long-term since. He is about 25% better than when he first arrived here and is debating about going to skilled facility rehab versus home. Initially it looked like he would go to [facility] but now center care has potential availability. Patient has a good support system his daughter Katharina Oneil is local phone number [phone] and he has a daughter Najma in [place]. Review of Systems Review of Systems: Low energy Physical Exam Physical Exam: Well-developed well-nourished no acute distress Eyes: PERRL, conjunctivae normal, anicteric sclerae ENMT: external ear and nose normal, oropharynx normal Neck: trachea midline, no thyromegaly Respiratory: normal respiratory effort, lungs clear to auscultation Cardiovascular: RRR, no murmur, no edema Gastrointestinal (Abdomen): normal bowel sounds, soft, nontender, no hepatosplenomegaly Musculoskeletal: no cyanosis or clubbing, extremities motor strength 5/5 Results & Data Results & Data Vital Signs (Past 12 Hours) Vital Signs Temp Pulse Resp BP Pulse Ox O2 Del Method 02/24/23 20:09 36.4 C L 75 18 104/66 91 Room Air 02/24/23 15:14 36.3 C L 72 18 110/63 94 Room Air 02/24/23 11:15 36.4 C L 61 18 110/70 96 Room Air 02/24/23 09:00 Room Air PG Care Time/CCT Total # of Minutes Spent Total Time Spent with Patient: Total time spent is greater than 50% in coordination of care (as documented) at patient's floor/unit and/or counseling patient: Coding Level of Care Code 98500 SUB INP/OBS CARE 3/50MIN Diagnoses Encephalopathy G93.40 Acute dehydration E86.0 Leukocytosis D72.829 Leukocytosis type: unspecified History of stroke Z86.73 PAF (paroxysmal atrial fibrillation) I48.0 Ambulatory dysfunction R26.2 HTN (hypertension) I10 Hypertension type: essential hypertension CKD (chronic kidney disease) stage 3, GFR 30-59 ml/min N18.30 CAD (coronary artery disease) I25.110 Associated angina: with unstable angina Coronary Disease-Associated Artery/Lesion type: [place] artery [place] vs. transplanted heart: [place] heart DM (diabetes mellitus) E11.9 Diabetes mellitus type: type 2 Diabetes mellitus meterman insulin use: without meterman use Diabetes mellitus complication status: without complication GERD (gastroesophageal reflux disease) K21.9 Esophagitis presence: esophagitis presence not specified Restless leg syndrome G25.81 S/P CABG x 3 Z95.1 Left hemiplegia G81.94 Nonsustained ventricular tachycardia I47.29 Time Spent (min) 50 (3) Leukocytosis Leukocytosis type: unspecified Qualified Code(s): D72.829 - Elevated white blood cell count, unspecified (7) HTN (hypertension) Hypertension type: essential hypertension Qualified Code(s): I10 - Essential (primary) hypertension (9) CAD (coronary artery disease) Associated angina: with unstable angina Coronary Disease-Associated Artery/Lesion type: [place] artery [place] vs. transplanted heart: [place] heart Qualified Code(s): I25.110 - Atherosclerotic heart disease of [place] coronary artery with unstable angina pectoris (10) DM (diabetes mellitus) Diabetes mellitus type: type 2 Diabetes mellitus meterman insulin use: without senior care use Diabetes mellitus complication status: without complication Qualified Code(s): E11.9 - Type 2 diabetes mellitus without complications (11) GERD (gastroesophageal reflux disease) Esophagitis presence: esophagitis presence not specified Qualified Code(s): K21.9 - Gastro-esophageal reflux disease without esophagitis
[2023-02-25] MEDS: APIXABAN 5 MG TABLET PO SCH ×2 (08:52→19:50)
[2023-02-25] MEDS: TAMSULOSIN HCL 0.4 MG CAP PO SCH (08:53)
[2023-02-25] MEDS: CEROVITE ADV FORMULA TAB PO SCH (08:53)
[2023-02-25] MEDS: CLOPIDOGREL BISULFATE 75 MG TAB PO SCH (08:53)
[2023-02-25] MEDS: amLODIPine BESYLATE 5 MG TAB PO SCH (08:53)
[2023-02-25] MEDS: lisinopril 10 MG TAB PO SCH (08:53)
[2023-02-25] MEDS: SENNA 8.6 MG TAB PO PRN ×2 (08:53→10:32)
[2023-02-25] MEDS: EZETIMIBE 10 MG TABLET PO SCH (08:53)
[2023-02-25] MEDS: POLYETHYLENE (MIRALAX) 17 GM PACK PO SCH (08:53)
[2023-02-25] MEDS: PANTOprazole 40 MG TAB PO SCH (08:53)
[2023-02-25] MEDS: METOPROLOL SUCC 50MG EXT REL TAB PO SCH (19:50)
[2023-02-25] MEDS: rOPINIRole HCL 0.25 MG TABLET PO SCH (19:50)
--- NOTE | 2023-02-25 23:31 | Hospitalist Progress Note ---
Date of Service February 25, 2023 Assessment & Plan (1) Encephalopathy: Plan: 77 y/o male with a PMHx of CVA with subsequent left sided hemiparesis, a fib on Eliquis, CKD III, CAD s/p CABG x3 stent placement, HTN, GERD, and RLS presented with poor PO intake and change in mental status admitted for acute encephalopathy, dehydration, and medication non-adherence. #Encephalopathy Patient seen last month for similar symptomatology. Thorough workup was completed including CK, TSH, T3, T4, Head CT, MRI Brain - no changes in comparison to 06/2022, CTA Head and Neck - right external carotid stenosis without indication for intervention. Patient had recently started baclofen which may have contributed to symptoms. Change in mental status likely multifactorial with decreased PO intake, recent fall, medication non-adherence and thus hypertensive state etc. Patient likely has a lower threshold for encephalopathy with his CVA history. Home medications have been resumed. Seems to have resolved. -supportive care -encourage good sleep/wake cycles -Continue home meds Reached out to daughterNajma on 02/20. She thinks that he may not have taken his medications correctly. She is uncomfortable with the discharge plan to home. She would like case management to be involved. Blood culture positive in 1 of 2 bottles for Staph epidermidis. Ordered a dose of vancomycin. Other bottles remain negative. Discontinued vancomycin. No fever or leukocytosis to support the diagnosis of a true infection. Could be a contaminant. Appears to be improving, plan to discharge tomorrow. (2) Acute dehydration: Plan: Mental status could be related to recent poor PO intake and dehydration. Adequately fluid resuscitated with 1.5 L NS. Discontinued IV fluids now that the mental status is much improved. (3) Leukocytosis: Plan: Likely hemoconcentrated in the setting of dehydration. Less likely infectious cause - CXR without notable consolidation, UA neg. Will trend - AM CBC Leukocytosis resolved. (4) History of stroke: Plan: With left hemiparesis. No acute issues. CT Head unchanged from prior. Continue Plavix, Eliquis, Zetia (5) PAF (paroxysmal atrial fibrillation): Plan: Sinus tachycardia on EKG. Restart home metoprolol. On Plavix and Eliquis - Monitor on tele (6) Ambulatory dysfunction: Plan: PT/OT on board. Likely will need assistance with ADLs. Case management involved. The daughter is very uncomfortable with the discharge plan to home. She would want PT/OT, case management involved. She is afraid that if he is sent home, he will go back in the cycle of medication nonadherence and then come back to the hospital. (7) HTN (hypertension): Plan: Patient was not taking his home meds for the last few days. Likely why he was hypertensive upon admission. Restarted home meds and continue to monitor - amlodipine, lisinopril, and metoprolol. Blood pressure well controlled on the current regimen. (8) CKD (chronic kidney disease) stage 3, GFR 30-59 ml/min: Plan: Cr 1.35 this admission. IVF as patient likely dehydrated. Monitor intake and output. Creatinine down to 1.25 today (9) CAD (coronary artery disease): Plan: Chronic and Stable.Continue Plavix, Zetia, metoprolol, lisinopril, Eliquis -s/p CABG x 3August 2020 (10) DM (diabetes mellitus): Plan: Chronic and stable. HgbA1C 6.7. Carb consistent diet. (11) GERD (gastroesophageal reflux disease): Plan: Chronic and Stable.Continue Protonix while hospitalized (omeprazole at home) (12) Restless leg syndrome: Plan: Chronic and Stable.Continue ropinirole (13) S/P CABG x 3: (14) Left hemiplegia: (15) Nonsustained ventricular tachycardia: Plan: Patient had an episode of nonsustained V. tach. Potassium 3.9 Mag 1.8 Increase the dose of metoprolol to home dose 50 p.o. nightly Plan Code: DNR/DNI DVT ppx: Eliquis Plavix GI ppx: pantoprazole FENGI: heart healthy carb consistent diet IVF NS 80 mL/hr Dispo: likely will need SNF placement. Social issues will need to be addressed by case management. Admission and Anticipated Discharge Date Admission Date: February 18, 2023 Subjective 77 yo male reports no new symptoms. Review of Systems Review of Systems: All systems reviewed & are unremarkable except as noted in HPI & below Physical Exam Physical Exam: Well-developed well-nourished no acute distress Eyes: PERRL, conjunctivae normal, anicteric sclerae ENMT: external ear and nose normal, oropharynx normal Neck: trachea midline, no thyromegaly Respiratory: normal respiratory effort, lungs clear to auscultation Cardiovascular: RRR, no murmur, no edema Gastrointestinal (Abdomen): normal bowel sounds, soft, nontender, no hepatosplenomegaly Musculoskeletal: no cyanosis or clubbing, extremities motor strength 5/5 Results & Data Results & Data Vital Signs (Past 12 Hours) Vital Signs Temp Pulse Pulse Resp BP Pulse Ox O2 Del Method 02/25/23 19:54 36.5 C 74 20 111/70 96 Room Air 02/25/23 19:49 72 125/72 02/25/23 16:06 65 02/25/23 15:30 36.4 C L 74 18 94/56 L 97 Room Air 02/25/23 12:02 36.3 C L 65 18 109/65 97 Room Air PG Care Time/CCT Total # of Minutes Spent Total Time Spent with Patient: Total time spent is greater than 50% in coordination of care (as documented) at patient's floor/unit and/or counseling patient: Coding Level of Care Code 44960 SUB INP/OBS CARE 2/35MIN Diagnoses Encephalopathy G93.40 Acute dehydration E86.0 Leukocytosis D72.829 Leukocytosis type: unspecified History of stroke Z86.73 PAF (paroxysmal atrial fibrillation) I48.0 Ambulatory dysfunction R26.2 HTN (hypertension) I10 Hypertension type: essential hypertension CKD (chronic kidney disease) stage 3, GFR 30-59 ml/min N18.30 CAD (coronary artery disease) I25.110 Associated angina: with unstable angina Coronary Disease-Associated Artery/Lesion type: [place] artery [place] vs. transplanted heart: [place] heart DM (diabetes mellitus) E11.9 Diabetes mellitus complication status: without complication Diabetes mellitus detention insulin use: without predatory animal exterminator use Diabetes mellitus type: type 2 GERD (gastroesophageal reflux disease) K21.9 Esophagitis presence: esophagitis presence not specified Restless leg syndrome G25.81 S/P CABG x 3 Z95.1 Left hemiplegia G81.94 Nonsustained ventricular tachycardia I47.29 (3) Leukocytosis Leukocytosis type: unspecified Qualified Code(s): D72.829 - Elevated white blood cell count, unspecified (7) HTN (hypertension) Hypertension type: essential hypertension Qualified Code(s): I10 - Essential (primary) hypertension (9) CAD (coronary artery disease) Associated angina: with unstable angina Coronary Disease-Associated Artery/Lesion type: [place] artery [place] vs. transplanted heart: [place] heart Qualified Code(s): I25.110 - Atherosclerotic heart disease of [place] coronary artery with unstable angina pectoris (10) DM (diabetes mellitus) Diabetes mellitus complication status: without complication Diabetes mellitus predatory animal exterminator insulin use: without detention use Diabetes mellitus type: type 2 Qualified Code(s): E11.9 - Type 2 diabetes mellitus without complications (11) GERD (gastroesophageal reflux disease) Esophagitis presence: esophagitis presence not specified Qualified Code(s): K21.9 - Gastro-esophageal reflux disease without esophagitis
[2023-02-26] MEDS: PANTOprazole 40 MG TAB PO SCH (08:58)
[2023-02-26] MEDS: TAMSULOSIN HCL 0.4 MG CAP PO SCH (08:58)
[2023-02-26] MEDS: APIXABAN 5 MG TABLET PO SCH (08:58)
[2023-02-26] MEDS: CLOPIDOGREL BISULFATE 75 MG TAB PO SCH (08:58)
[2023-02-26] MEDS: EZETIMIBE 10 MG TABLET PO SCH (08:58)
[2023-02-26] MEDS: SENNA 8.6 MG TAB PO PRN (08:58)
[2023-02-26] MEDS: lisinopril 10 MG TAB PO SCH (08:58)
[2023-02-26] MEDS: amLODIPine BESYLATE 5 MG TAB PO SCH (08:58)
[2023-02-26] MEDS: CEROVITE ADV FORMULA TAB PO SCH (08:59)
[2023-02-26] MEDS: POLYETHYLENE (MIRALAX) 17 GM PACK PO SCH (08:59)
[2023-02-26] MEDS: DICLOFENAC SOD 1% GEL 100 GM TUBE EXT PRN (09:01)
[2023-02-26 10:56] LABS: Hematocrit (blood only) 39.6 % (42.0-52.0); Hemoglobin 13.6 g/dl (14.0-18.0); Mean Corpuscular Hemoglobin 30.6 pg (25.0-34.0); Mean Corpuscular Hgb Conc 34.3 g/dL (32.0-36.0); Mean Corpuscular Volume 89.2 fL (80.0-100.0); Mean Platelet Volume 11.7 fL (9.4-12.4); Platelet Count 175 K/uL (130-400); RDW Coefficient of Variation 13.3 % (11.5-14.5); RDW Standard Deviation 43.4 fL (36.4-46.3); Red Blood Count 4.44 M/uL (4.70-6.10); White Blood Count 8.76 K/ul (4.8-10.8)
[2023-02-26 11:04] LABS: Anion Gap 7 (3-11); BUN Creatinine Ratio 15.6 (10-20); Blood Urea Nitrogen 24 mg/dl (6-23); C Reactive Protein < 0.50 mg/dl (0-0.5); Calcium 9.3 mg/dl (8.6-10.3); Carbon Dioxide 24 mmol/L (21-32); Chloride 106 mmol/L (98-107); Creatine Kinase 156 U/L (30-223); Creatinine Clr Calc Pharmacy 41.5 ml/min; Est GFR (African American) 49.7 ml/min; Est GFR (Non-African American) 42.9 ml/min; Glucose 138 mg/dl (70-99(Fasting)); Potassium 4.1 mmol/L (3.5-5.1); Sodium 137 mmol/L (136-145)
--- NOTE | 2023-02-26 13:59 | Discharge Summary ---
Date of Service February 26, 2023 Admission HPI Per Admitting Provider 77 y/o with a PMHx of CVA with subsequent left sided hemiparesis, a. fib on Eliquis, CKD III, CAD s/p CABG x3 stent placement, HTN, GERD, and RLS presented with poor PO intake and change in mental status. Patient recently seen for similar presentation. He completed rehab at SNF and was in an assisted living facility. Patient abruptly decided he wanted to go home 02/14 and he was taken back home. He then fell 02/16. EMS was called and helped him back into bed. He was not deemed to need emergency care at that time. Aunt/Uncle were caring for him 02/18 and noticed a change in mental status and called EMS. Patient had several days where he did not want to eat or drink. He would not get out of bed to urinate or take his medications. No noticed fevers or chills. Mr. Antonio's daughter expressed frustration that he left the assisted living facility. She and the other members of her family are not able to care for him at home. He is adamant about remaining at home, but per Katharina this is likely not feasible. History obtained from Daughter Katharina Oneil [phone] Discharge Data Allergies Allergy/AdvReac Type Severity Reaction Status Date / Time Corticosteroids Allergy Unknown Unknown Verified 02/18/23 18:57 (Glucocorticoids) niacin Allergy Unknown ARTHRALGIAS Verified 02/18/23 18:57 FROM ADVICOR telithromycin Allergy Unknown ARTHRALGIAS Verified 02/18/23 18:57 FROM ADVICOR atorvastatin AdvReac Intermediate Muscle Pain Verified 02/18/23 18:57 lovastatin AdvReac Intermediate ARTHRALGIAS Verified 02/18/23 18:57 FROM ADVICOR Cbbcbqv-[id number]-JnI Reductase AdvReac Intermediate Muscle Pain Verified 02/18/23 18:57 Inhibitor [Ukuwyia-Sjk-Ndj Reductase Inhibitor] Consultations 02/18/23 17:33 ED Decision to Admit Stat 02/19/23 12:43 Consult Infectious Diseases Routine Ordered Studies 02/18/23 16:04 CT head/brain wo con Stat 02/18/23 16:09 CT abd pelvis wo con Stat Hospital Course (1) Encephalopathy: 77 y/o male with a PMHx of CVA with subsequent left sided hemiparesis, a fib on Eliquis, CKD III, CAD s/p CABG x3 stent placement, HTN, GERD, and RLS presented with poor PO intake and change in mental status admitted for acute encephalopathy, dehydration, and medication non-adherence. #Encephalopathy Patient seen last month for similar symptomatology. Thorough workup was completed including CK, TSH, T3, T4, Head CT, MRI Brain - no changes in comparison to 06/2022, CTA Head and Neck - right external carotid stenosis without indication for intervention. Patient had recently started baclofen which may have contributed to symptoms. Change in mental status likely multifactorial with decreased PO intake, recent fall, medication non-adherence and thus hypertensive state etc. Patient likely has a lower threshold for encephalopathy with his CVA history. Home medications have been resumed. Seems to have resolved. -supportive care -encourage good sleep/wake cycles -Continue home meds Reached out to daughter, Najma on 02/20. She thinks that he may not have taken his medications correctly. She is uncomfortable with the discharge plan to home. She would like case management to be involved. Blood culture positive in 1 of 2 bottles for Staph epidermidis. Ordered a dose of vancomycin. Other bottles remain negative. Discontinued vancomycin. No fever or leukocytosis to support the diagnosis of a true infection. Could be a contaminant. Appears to be improving, plan to discharge tomorrow. (2) Acute dehydration: Mental status could be related to recent poor PO intake and dehydration. Adequately fluid resuscitated with 1.5 L NS. Discontinued IV fluids now that the mental status is much improved. (3) Leukocytosis: Likely hemoconcentrated in the setting of dehydration. Less likely infectious cause - CXR without notable consolidation, UA neg. Will trend - AM CBC Leukocytosis resolved. (4) History of stroke: With left hemiparesis. No acute issues. CT Head unchanged from prior. Continue Plavix, Eliquis, Zetia (5) PAF (paroxysmal atrial fibrillation): Sinus tachycardia on EKG. Restart home metoprolol. On Plavix and Eliquis - Monitor on tele Patient had moments of bradycardia. WIll cut back to 25 mg of metoprolol which was recommended in his previous admission. (6) Ambulatory dysfunction: PT/OT on board. Likely will need assistance with ADLs. Case management involved. The daughter is very uncomfortable with the discharge plan to home. She would want PT/OT, case management involved. She is afraid that if he is sent home, he will go back in the cycle of medication nonadherence and then come back to the hospital. (7) HTN (hypertension): Patient was not taking his home meds for the last few days. Likely why he was hypertensive upon admission. Restarted home meds and continue to monitor - amlodipine, lisinopril, and metoprolol. Blood pressure well controlled on the current regimen. (8) CKD (chronic kidney disease) stage 3, GFR 30-59 ml/min: Cr 1.35 this admission. IVF as patient likely dehydrated. Monitor intake and output. Creatinine down to 1.25 today (9) CAD (coronary artery disease): Chronic and Stable.Continue Plavix, Zetia, metoprolol, lisinopril, Eliquis -s/p CABG x 3, August 2020 (10) DM (diabetes mellitus): Chronic and stable. HgbA1C 6.7. Carb consistent diet. (11) GERD (gastroesophageal reflux disease): Chronic and Stable.Continue Protonix while hospitalized (omeprazole at home) (12) Restless leg syndrome: Chronic and Stable.Continue ropinirole (13) S/P CABG x 3: (14) Left hemiplegia: (15) Nonsustained ventricular tachycardia: Patient had an episode of nonsustained V. tach. Potassium 3.9 Mag 1.8 Increase the dose of metoprolol to home dose 50 p.o. nightly Plan Code: DNR/DNI DVT ppx: Eliquis Plavix GI ppx: pantoprazole FENGI: heart healthy carb consistent diet IVF NS 80 mL/hr Dispo: likely will need SNF placement. Social issues will need to be addressed by case management. Discharge Plan Discharge Items Patient Disposition: Transfer [facility] Reason For Visit: ENCEPHALOPATHY Discharge Diagnosis: encephalopathy Condition on Discharge: Fair Activity: Resume your previous activity Non-emergency contact: Primary Care Provider Call non-emergency contact if: you have any medication questions Follow-up/Referrals: Alejandrina Brooks DO [Primary Care Provider] - Diet: Carb Consistent or DM2 and Heart Healthy Addtl Attending Provider Instructions: recommend followup with PCP in 1-2 weeks. Pending Studies at Discharge: No Stand-Alone Forms: My [facility] Skilled Items Patient informed of condition?: Yes DNR: Yes (DNR/DNI) Discharge Level of Care: Skilled Communicable Disease: No Discharge Prognosis: Stable Lines: None Urinary Catheter: No Medications and DC Order Prescriptions: New diclofenac sodium [Voltaren Arthritis Pain] 1 % Gel 2 g EXT Q6 PRN (Reason: left foot pain) Qty: 100 0RF polyethylene glycol 3350 [Miralax] 17 gram Powder In Packet 17 g PO DAILY PRN (Reason: constipation) Qty: 30 0RF acetaminophen [Tylenol Extra Strength] 500 mg Tablet 1,000 mg PO Q8H PRN (Reason: pain) Qty: 30 0RF Continued multivitamin with minerals Tablet 1 tab PO DAILY sennosides [Senokot] 8.6 mg tablet 8.6 mg PO QAM PRN (Reason: Constipation) pantoprazole 20 mg tablet,delayed release (DR/EC) 20 mg PO DAILY amlodipine 2.5 mg tablet 2.5 mg PO DAILY Qty: 30 0RF clopidogrel 75 mg Tablet 75 mg PO QAM Qty: 30 0RF tamsulosin 0.4 mg capsule 0.4 mg PO DAILY Qty: 30 0RF ropinirole 0.5 mg tablet 0.5 mg PO HS Qty: 30 0RF lisinopril 10 mg tablet 10 mg PO DAILY Qty: 30 0RF ezetimibe 10 mg tablet 10 mg PO QAM Qty: 30 0RF Eliquis 5 mg tablet 5 mg PO BID Qty: 30 0RF Changed metoprolol succinate 25 mg tablet extended release 24 hr 25 mg PO HS Qty: 30 0RF Discharge Orders: Discharge Order (Routine); Ordered 02/26/23 Ordered By: Hemant Rose Admission Data Admit Date/Time: 02/18/23 19:35 Attending Provider: Hemant Rose Admit Provider: Jeannie Conroy Primary Care Provider: Alejandrina Brooks Other Providers: Geneva Hernandez ; Laisha Jensen ; [place] ; [facility] Coding Diagnoses Encephalopathy G93.40 Acute dehydration E86.0 Leukocytosis D72.829 Leukocytosis type: unspecified History of stroke Z86.73 PAF (paroxysmal atrial fibrillation) I48.0 Ambulatory dysfunction R26.2 HTN (hypertension) I10 Hypertension type: essential hypertension CKD (chronic kidney disease) stage 3, GFR 30-59 ml/min N18.30 CAD (coronary artery disease) I25.110 Associated angina: with unstable angina Coronary Disease-Associated Artery/Lesion type: [place] artery [place] vs. transplanted heart: [place] heart DM (diabetes mellitus) E11.9 Diabetes mellitus type: type 2 Diabetes mellitus datapower developer insulin use: without datapower developer use Diabetes mellitus complication status: without complication GERD (gastroesophageal reflux disease) K21.9 Esophagitis presence: esophagitis presence not specified Restless leg syndrome G25.81 S/P CABG x 3 Z95.1 Left hemiplegia G81.94 Nonsustained ventricular tachycardia I47.29
== END 2023-02-26 14:37 | DRG 78 ==
LOC: ED 16:00 → SUATTDRO 19:35 → 2N 19:35

== ENCOUNTER 2023-05-20 02:04 | Inpatient (IN) ==
[2023-05-20 02:41] LABS: iSTAT Creatinine 1.6 mg/dl (0.6-1.3); iSTAT Ionized Calcium 1.17 mmol/l (1.12-1.32); iSTAT Potassium 3.6 mmol/L (3.3-5.0)
[2023-05-20 03:01] LABS: BUN Creatinine Ratio 11.1 (10-20); Calcium 9.1 mg/dl (8.6-10.3); Est GFR (African American) 46.7 ml/min; Est GFR (Non-African American) 40.3 ml/min; Potassium 3.6 mmol/L (3.5-5.1)
[2023-05-20 03:06] LABS: Troponin I High Sensitivity 12.7 pg/ml (0-20)
[2023-05-20 03:12] LABS: Hematocrit (blood only) 41.2 % (42.0-52.0); Hemoglobin 14.4 g/dl (14.0-18.0); Mean Corpuscular Hemoglobin 31.3 pg (25.0-34.0); Mean Corpuscular Volume 89.6 fL (80.0-100.0); Mean Platelet Volume 11.7 fL (9.4-12.4); Platelet Count 136 K/uL (130-400); RDW Coefficient of Variation 12.5 % (11.5-14.5); RDW Standard Deviation 40.6 fL (36.4-46.3); White Blood Count 11.69 K/ul (4.8-10.8)
[2023-05-20 03:15] LABS: Basophils # (auto) 0.02 K/uL (0.00-0.20); Basophils % (auto) 0.2 %; Eosinophils # (auto) 0.02 K/uL (0.00-0.50); Eosinophils % (auto) 0.2 %; Immature Granulocytes # (auto) 0.04 K/uL (0.01-0.20); Immature Granulocytes % (auto) 0.3 %; Lymphocytes # (auto) 0.39 K/uL (1.20-3.40); Lymphocytes % (auto) 3.3 %; Monocytes % (auto) 3.4 %; Neutrophils # (auto) 10.82 K/uL (1.40-6.50); Neutrophils % (auto) 92.6 %
[2023-05-20] MEDS ORDERED: ONDANSETRON INJ 2 MG/ML 2 ML VIAL IV STA (03:42)
[2023-05-20] MEDS ORDERED: SODIUM CHLORIDE 0.9% 1000ML 1,000 ML IV ONE (03:42)
[2023-05-20] MEDS ORDERED: fentaNYL citrate PF 100 MCG/2 ML VIAL IV STA (03:42)
[2023-05-20 03:53] LABS: INR 1.1 (0.9-1.1); Partial Thromboplastin Ratio 1.1; Partial Thromboplastin Time 30.3 Seconds (21.0-31.0); Prothrombin Time 11.6 Seconds (9.0-12.0)
[2023-05-20] MEDS ORDERED: AMIODARONE 150MG / 100ML D5W IV ONE ×2 (03:55→03:56)
[2023-05-20] MEDS ORDERED: AMIODARONE 360MG / 200ML D5W IV ONE (03:55)
[2023-05-20 04:00] LABS: Magnesium 1.4 mg/dl (1.7-2.4)
[2023-05-20] MEDS ORDERED: MAGNESIUM SULFATE / D5W 1 GM/100 ML BAG IV STA (04:21)
[2023-05-20] MEDS ORDERED: OPTIRAY 320 100ml IV ONE (04:32)
[2023-05-20 04:56] LABS: Albumin Globulin Ratio 1.6 (0.9-2); Albumin Level 4.2 gm/dl (3.4-5.0); Bilirubin,Total 1.4 mg/dl (0.2-1.0); Globulin 2.7 gm/dl (2.5-4.0); Total Protein 6.9 gm/dl (6.0-8.3)
[2023-05-20] MEDS ORDERED: PIPERACILLIN/TAZOBACTAM 4.5 GM/120 ML BAG IV ONE (05:18)
--- NOTE | 2023-05-20 05:28 | CT Scan Report ---
Exam(s): CT ABDOMEN + PELVIS With Contrast IV Amt: 92 ml opti 320 EXAM: CT Abdomen and Pelvis With Intravenous Contrast CLINICAL HISTORY: Evaluate for pancreatitis versus small bowel obstruction. TECHNIQUE: Axial computed tomography images of the abdomen and pelvis with intravenous contrast. CTDI is 25.77 mGy and DLP is 1450.73 mGy-cm. Automated exposure control was utilized for the study. A dose lowering technique was utilized adhering to the principles of ALARA. CONTRAST: Patient received 92 ml opti 320 of IV contrast COMPARISON: CT abdomen and pelvis 02/18/2023. FINDINGS: Lung bases: Bibasilar airspace opacities are present. ABDOMEN: Liver: Unremarkable. No mass. Gallbladder and bile ducts: Unremarkable. No calcified stones. No ductal dilation. Pancreas: There is inflammatory stranding of the pancreas. No ductal dilation. Spleen: Unremarkable. No splenomegaly. Adrenals: There is a 1.2 cm left 0.5 and 1.2 cm adrenal adenomas. No polyp is needed. The right adrenal gland is unremarkable. Kidneys and ureters: Atrophic left kidney. No hydronephrosis. Stomach and bowel: There is thickening of the wall of the distal stomach and duodenum which is likely reactive. Nonspecific thickening of the rectum. No bowel obstruction. PELVIS: Appendix: No findings to suggest acute appendicitis. Bladder: Unremarkable. No mass. Reproductive: Unremarkable as visualized. ABDOMEN and PELVIS: Intraperitoneal space: Unremarkable. No free air. No significant fluid collection. Bones/joints: No acute fracture. No dislocation. Soft tissues: Small bilateral fat-containing inguinal hernias. Vasculature: Mild atherosclerosis. No abdominal aortic aneurysm. Lymph nodes: Unremarkable. No enlarged lymph nodes. IMPRESSION: 1. There is inflammatory stranding of the pancreas. This is most consistent with acute pancreatitis. No hemorrhage, necrosis or organized peripancreatic fluid collection. 2. No bowel obstruction. 3. There is thickening of the wall of the distal stomach and duodenum which is likely reactive. 4. Atrophic left kidney. 5. Nonspecific thickening of the rectum. 6. Bibasilar airspace opacities may represent pulmonary edema, atelectasis or atypical infection. Electronically signed by: Helga Salazar MD 05/20/23 05:28 AM
--- NOTE | 2023-05-20 06:20 | History & Physical Report ---
Date of Service May 20, 2023 Assessment & Plan (1) Acute pancreatitis: Plan: 77yo male presenting with acute pancreatitis - abdominal pain, elevated lipase of 4797 and inflammatory stranding of the pancreas. No hemorrhage, necrosis or organized peripancreatic fluid collection. No stones noted in the gall bladder. No ductal dilatation of the gallbladder or pancreas. Patient denies EtOH intake. No recent medication changes. Does have a history of hypertrigl yceridemia, possible source. Calcium is normal. -Admit to PCU -Maintain NPO status -LR at 200mL/hr x 3 liters -Monitor output -Check triglyceride level - If significantly elevated, patient will need to be started on insulin drip for management. Most recently was 333 in December. Did have TG of 1154 in 2018 -Repeat LFTs in AM - mild elevation of AST=93, ALT=65, Tbili=1.4. AP is normal -Repeat lactate (2) Nonsustained ventricular tachycardia: Plan: Patient with episode of NSVT in the ER. Given Amiodarone 150mg bolus. Now in atrial fibrillation. Blood pressure has remained stable. Acute dehydration in setting of pancreatitis. Electrolyte derangement - Mg=1.4. Magnesium 1gm given in ER. No CP. Troponin x 1 is unremarkable -Telemetry monitoring -Mg x 2 gm -KCL x 40mEq -Additional Amio if needed (3) CAD (coronary artery disease): Plan: History of. 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 -Protonix 20mg po daily (6) HTN (hypertension): Plan: Elevated blood pressure in the ER -Pain control -Continue Amlodipine, Lisinopril and Metoprolol (7) DM (diabetes mellitus): Plan: Diet controlled. Last IgkR7A=5.4 on 04/02/23. Elevated blood sugar presently at 192 -fingersticks -ISS ordered for now - goal blood sugar 110 - 140. If markedly elevated triglycerides will likely need insulin drip History of Present Illness Chief Complaint: abdominal pain Primary Care Provider: Cal Lauren MD Shailesh Antonio is a 77yo male with history of AF on Eliquis anticoagulation, prior CVA with left sided hemiparesis, DM, HTN, GERD and CAD s/p CABG x 3V with stents in place presenting from [facility] with severe abdominal pain that began 05/19/23 around 20:00. Also with nausea and vomiting. Patient endorses fever, chills, MERAZ and SOB as well. Patient denies chest pain or palpitations. No known history of prior pancreatitis. In the ER he had an episode of VT and was given a bolus of Amiodarone with resolution ER Course: Amiodarone 150mg Fentanyl 50mcg Magnesium 1gm Zofran 4mg IV Zosyn 4.5gm NSS x 1L Allergies Allergy/AdvReac Type Severity Reaction Status Date / Time Corticosteroids Allergy Unknown Unknown Verified 02/18/23 18:57 (Glucocorticoids) niacin Allergy Unknown ARTHRALGIAS Verified 02/18/23 18:57 FROM ADVICOR telithromycin Allergy Unknown ARTHRALGIAS Verified 02/18/23 18:57 FROM ADVICOR atorvastatin AdvReac Intermediate Muscle Pain Verified 02/18/23 18:57 lovastatin AdvReac Intermediate ARTHRALGIAS Verified 02/18/23 18:57 FROM ADVICOR [id number] Reductase AdvReac Intermediate Muscle Pain Verified 02/18/23 18:57 Inhibitor [[id number]-Rlu Reductase Inhibitor] Home Medications Medication Instructions Recorded Confirmed Type multivitamin with minerals 1 tab PO DAILY 03/16/21 05/20/23 History pantoprazole 20 mg tablet,delayed 20 mg PO DAILY 02/18/23 05/20/23 History release acetaminophen 500 mg tablet 1,000 mg PO Q8H PRN pain #30 tabs 02/26/23 05/20/23 Rx (Tylenol Extra Strength) amlodipine 2.5 mg tablet 2.5 mg PO DAILY #30 tabs 02/26/23 05/20/23 Rx apixaban 5 mg tablet (Eliquis) 5 mg PO BID #30 tabs 02/26/23 05/20/23 Rx clopidogrel 75 mg tablet 75 mg PO QAM #30 tabs 02/26/23 05/20/23 Rx ezetimibe 10 mg tablet 10 mg PO QAM #30 tabs 02/26/23 05/20/23 Rx lisinopril 10 mg tablet 10 mg PO DAILY #30 tabs 02/26/23 05/20/23 Rx metoprolol succinate 25 mg 25 mg PO HS #30 tabs 02/26/23 05/20/23 Rx tablet,extended release 24 hr ropinirole 0.5 mg tablet 0.5 mg PO HS #30 tabs 02/26/23 05/20/23 Rx loratadine 10 mg tablet 10 mg PO DAILY 05/20/23 05/20/23 History tamsulosin 0.4 mg capsule 0.4 mg PO QAM 05/20/23 05/20/23 History Past Med/Surg History Medical History (Updated 05/20/23 @ 07:04 by Kim Giang DO) Ambulatory dysfunction Atrial fibrillation CAD (coronary artery disease) CHI (closed head injury) CKD (chronic kidney disease) stage 3, GFR 30-59 ml/min CVA (cerebral vascular accident) january 2021 Depression Diaphragmatic paralysis Diarrhea DM (diabetes mellitus) Elevated lipase Fall Generalized weakness GERD (gastroesophageal reflux disease) GERD (gastroesophageal reflux disease) History of stroke HTN (hypertension) HTN (hypertension) Hypercholesteremia Hypertriglyceridemia Hypotension Left rib fracture PAF (paroxysmal atrial fibrillation) Physical deconditioning Postoperative atrial fibrillation Presence of arterial stent L leg, unable to relate exact location. Pressure ulcer of right buttock Restless leg syndrome Stroke TIA (transient ischemic attack) Type II diabetes mellitus Surgical History H/O knee surgery stent behind left knee 2017 H/O vasectomy History of angioplasty of peripheral vessel LLE angiogram with NURSING FACULTY popliteal 05/23/2018 Hx of colonoscopy 2017 S/P CABG x 3 Family History Grandfather Colorectal cancer Mother Diabetes Hypertension Brother Stroke Social History Smoking Status: Unknown if ever smoked Tobacco Type: Cigarettes Second Hand Exposure: No; Do You Dip or Chew Tobacco: No; Hx Alcohol Use: Yes Alcohol type: beer Hx Substance Use: No Preferred Language: [place] Communication Ability: Effective Communication Ability Comment: Aphasia. Lumber Bearer Required: No Beliefs That Will Affect Care: None marital status: Single Current Living Situation: Alone Current Living Situation Comment: please see nurses notes current occupational status: retired Feels Safe at Home: Yes Assistive Devices: Walker and Wheelchair Review of Systems Review of Systems: All systems reviewed & are unremarkable except as noted in HPI & below Physical Exam Physical Exam: General: patient ill in appearance, answering questions appropriately Skin: warm, dry, intact, no rashes or lesions HEENT: NC/AT, PERRL, EOMI, anicteric sclera, conjunctiva without injection, external ear normal to inspection and nontender, nares patent, dry mucus membranes, dentition intact, no oropharyngeal lesions, neck supple, trachea midline, no LAD, no thyromegaly, no JVD Heart: +S1/S2, irregularly irregular, no m/r/g Lungs: equal air entry bilaterally, crackles in bilateral bases, no wheezes Abd: +BS, soft, mildly distended, tender to palpation, no masses/organomegaly/ascites Ext: warm, 2+ pulses in UE/LE bilaterally, no clubbing/cyanosis or edema Neuro: left sided hemiparesis Results & Data Results & Data Vital Signs (Past 12 Hours) Vital Signs Temp Pulse Resp BP Pulse Ox O2 Del Method 05/20/23 03:51 152 H 05/20/23 03:52 185 H 05/20/23 03:20 157 H 26 H 93 05/20/23 03:10 120 H 28 H 90 05/20/23 03:00 126 H 33 H 90 05/20/23 02:50 121 H 13 90 05/20/23 02:40 129 H 28 H 90 05/20/23 02:30 94 H 35 H 92 05/20/23 02:20 131 H 40 H 91 05/20/23 02:10 134 H 36 H 92 05/20/23 02:05 135 H 30 H 93 05/20/23 03:26 157 H 05/20/23 02:12 128 H 18 91 Room Air 05/20/23 02:07 134 H 05/20/23 02:14 37.3 C 130 H 34 H 149/97 H 91 Room Air Laboratory Results Laboratory Results WBC 11.69 K/ul (4.8-10.8) H 05/20/23 02:24 RBC 4.60 M/uL (4.70-6.10) L 05/20/23 02:24 Hgb 14.4 g/dl (14.0-18.0) 05/20/23 02:24 POC Hgb 15.0 g/dl (14.0-18.0) 05/20/23 02: Hct 41.2 % (42.0-52.0) L 05/20/23 02:24 POC Hct 44 % (42-52) 05/20/23 02: MCV 89.6 fL (80.0-100.0) 05/20/23 02:24 MCH 31.3 pg (25.0-34.0) 05/20/23 02: MCHC 35.0 g/dL (32.0-36.0) 05/20/23: RDW Std Deviation 40.6 fL (36.4-46.3) 05/20/23: RDW Coeff of Brice 12.5 % (11.5-14.5) 05/20/23 02: Plt Count 136 K/uL (130-400) 05/20/23 02: MPV 11.7 fL (9.4-12.4) 05/20/23 02:24 Immature Gran % (Auto) 0.3 % 05/20/23 02:24 Neut % (Auto) 92.6 % 05/20/23 02:24 Lymph % (Auto) 3.3 % 05/20/23 02:24 [place] % (Auto) 3.4 % 05/20/23 02:24 Eos % (Auto) 0.2 % 05/20/23 02:24 Baso % (Auto) 0.2 % 05/20/23 02:24 Neut # (Auto) 10.82 K/uL (1.40-6.50) H 05/20/23 02:24 Lymph # (Auto) 0.39 K/uL (1.20-3.40) L 05/20/23 02:24 [place] # (Auto) 0.40 K/uL (0.11-0.59) 05/20/23 02:24 Eos # (Auto) 0.02 K/uL (0.00-0.50) 05/20/23 02:24 Baso # (Auto) 0.02 K/uL (0.00-0.20) 05/20/23 02:24 Immature Gran # (Auto) 0.04 K/uL (0.01-0.20) 05/20/23 02:24 PT 11.6 Seconds (9.0-12.0) 05/20/23 02:24 INR 1.1 (0.9-1.1) 05/20/23 02:24 APTT 30.3 Seconds (21.0-31.0) 05/20/23 02:24 PTT Ratio 1.1 05/20/23 02:24 POC Sodium 140 mmol/L (135-144) 05/20/23 02:28 Sodium 139 mmol/L (136-145) 05/20/23 02:24 POC Potassium 3.6 mmol/L (3.3-5.0) 05/20/23 02:28 Potassium 3.6 mmol/L (3.5-5.1) 05/20/23 02:24 POC Chloride 105 mmol/L (101-112) 05/20/23 02:28 Chloride 106 mmol/L (98-107) 05/20/23 02:24 Carbon Dioxide 23 mmol/L (21-32) 05/20/23 02:24 POC Total CO2 20 mmol/L (24-31) L 05/20/23 02:28 Anion Gap 10 (3-11) 05/20/23 02:24 POC Anion Gap 19.0 mmol/L (16-25) 05/20/23 02:28 POC BUN 18 mg/dl (7-18) 05/20/23 02:28 BUN 18 mg/dl (6-23) 05/20/23 02:24 Creatinine 1.62 mg/dl (0.6-1.4) H 05/20/23 02:24 POC Creatinine 1.6 mg/dl (0.6-1.3) H 05/20/23 02:28 Est Cr Clr Drug Dosing 40.0 ml/min 05/20/23 02:24 Est GFR ( Amer) 46.7 ml/min 05/20/23 02:24 Est GFR (Non-Af Amer) 40.3 ml/min 05/20/23 02:24 BUN/Creatinine Ratio 11.1 (10-20) 05/20/23 02:24 Glucose 192 mg/dl (70-99(Fasting)) H 05/20/23 02:24 POC Glucose (other) 191 mg/dl (70-99) H 05/20/23 02:28 Lactate 2.3 mmol/L (0.4-2.0) H* 05/20/23 06:10 Calcium 9.1 mg/dl (8.6-10.3) 05/20/23 02:24 POC Ioniz Calcium Delmy 1.17 mmol/l (1.12-1.32) 05/20/23 02:28 Magnesium 1.4 mg/dl (1.7-2.4) L 05/20/23 02:24 Total Bilirubin 1.4 mg/dl (0.2-1.0) H 05/20/23 02:24 AST 93 U/L (13-39) H 05/20/23 02:24 ALT 65 U/L (7-52) H 05/20/23 02:24 Alkaline Phosphatase 96 U/L (34-104) 05/20/23 02:24 Troponin I High Sens 12.7 pg/ml (0-20) 05/20/23 02:24 Total Protein 6.9 gm/dl (6.0-8.3) 05/20/23 02:24 Albumin 4.2 gm/dl (3.4-5.0) 05/20/23 02:24 Globulin 2.7 gm/dl (2.5-4.0) 05/20/23 02:24 Albumin/Globulin Ratio 1.6 (0.9-2) 05/20/23 02:24 Lipase 4797 U/L (11-82) H 05/20/23 02:24 Procalcitonin 0.63 ng/ml (0-0.5) H 05/20/23 02:24 TSH 3.399 uIu/ml (0.300-4.500) 05/20/23 02:24 Impressions Abdomen/Pelvis CT 05/20/23 03:41 Exam(s): CT ABDOMEN + PELVIS With Contrast IV Amt: 92 ml opti 320 EXAM: CT Abdomen and Pelvis With Intravenous Contrast CLINICAL HISTORY: Evaluate for pancreatitis versus small bowel obstruction. TECHNIQUE: Axial computed tomography images of the abdomen and pelvis with intravenous contrast. CTDI is 25.77 mGy and DLP is 1450.73 mGy-cm. Automated exposure control was utilized for the study. A dose lowering technique was utilized adhering to the principles of ALARA. CONTRAST: Patient received 92 ml opti 320 of IV contrast COMPARISON: CT abdomen and pelvis 02/18/2023. FINDINGS: Lung bases: Bibasilar airspace opacities are present. ABDOMEN: Liver: Unremarkable. No mass. Gallbladder and bile ducts: Unremarkable. No calcified stones. No ductal dilation. Pancreas: There is inflammatory stranding of the pancreas. No ductal dilation. Spleen: Unremarkable. No splenomegaly. Adrenals: There is a 1.2 cm left 0.5 and 1.2 cm adrenal adenomas. No polyp is needed. The right adrenal gland is unremarkable. Kidneys and ureters: Atrophic left kidney. No hydronephrosis. Stomach and bowel: There is thickening of the wall of the distal stomach and duodenum which is likely reactive. Nonspecific thickening of the rectum. No bowel obstruction. PELVIS: Appendix: No findings to suggest acute appendicitis. Bladder: Unremarkable. No mass. Reproductive: Unremarkable as visualized. ABDOMEN and PELVIS: Intraperitoneal space: Unremarkable. No free air. No significant fluid collection. Bones/joints: No acute fracture. No dislocation. Soft tissues: Small bilateral fat-containing inguinal hernias. Vasculature: Mild atherosclerosis. No abdominal aortic aneurysm. Lymph nodes: Unremarkable. No enlarged lymph nodes. IMPRESSION: 1. There is inflammatory stranding of the pancreas. This is most consistent with acute pancreatitis. No hemorrhage, necrosis or organized peripancreatic fluid collection. 2. No bowel obstruction. 3. There is thickening of the wall of the distal stomach and duodenum which is likely reactive. 4. Atrophic left kidney. 5. Nonspecific thickening of the rectum. 6. Bibasilar airspace opacities may represent pulmonary edema, atelectasis or atypical infection. Electronically signed by: Helga Salazar MD 05/20/23 05:28 AM ECG Additional Comments: AF at 106, no acute ischemic changes PG Care Time/CCT Total # of Minutes Spent Total Time Spent with Patient: Total time spent is greater than 50% in coordination of care (as documented) at patient's floor/unit and/or counseling patient: Coding Level of Care Code 89471 INT INP/OBS CARE 3/75MIN Diagnoses Acute pancreatitis K85.90 Nonsustained ventricular tachycardia I47.29 CAD (coronary artery disease) I25.110 Associated angina: with unstable angina Coronary Disease-Associated Artery/Lesion type: marshall artery [place] vs. transplanted heart: marshall heart CVA (cerebral vascular accident) I63.9 GERD (gastroesophageal reflux disease) K21.9 HTN (hypertension) I10 Hypertension type: essential hypertension DM (diabetes mellitus) E11.9 Diabetes mellitus type: type 2 Diabetes mellitus long term care pharmacist insulin use: without long term care pharmacist use Diabetes mellitus complication status: without complication (3) CAD (coronary artery disease) Associated angina: with unstable angina Coronary Disease-Associated Artery/Lesion type: marshall artery [place] vs. transplanted heart: marshall heart Qualified Code(s): I25.110 - Atherosclerotic heart disease of marsh[place] coronary artery with unstable angina pectoris (6) HTN (hypertension) Hypertension type: essential hypertension Qualified Code(s): I10 - Essential (primary) hypertension (7) DM (diabetes mellitus) Diabetes mellitus type: type 2 Diabetes mellitus prison insulin use: without prison use Diabetes mellitus complication status: without complication Qualified Code(s): E11.9 - Type 2 diabetes mellitus without complications
--- NOTE | 2023-05-20 06:44 | Emergency Department Note ---
Impression & Plan Acute pancreatitis, Ventricular tachycardia, [facility]agn[facility] NAME: CAIN NAZARIO AGE: 77 SEX: M ARRIVES VIA: Ambulance INFORMANT: Patient and EMS ED PROVIDER(S): Montserrat Camacho DO CHIEF COMPLAINT: Nausea/vomiting; abdominal pain PLAN: Disposition: Admit to the [facility] Condition: Critical MEDICAL DECISION MAKING: This is a 77-year-old male patient presents to the emergency department with worsening abdominal pain, nausea/vomiting. Patient presents from [facility] and had been having some diffuse abdominal pain over the past couple of days. Laboratory studies revealed a lipase of 4797. The patient was medicated with IV fentanyl for his pain and runs of ventricular tachycardia. He was placed on the relator pads started on IV amiodarone bolus of 150 mg. A septic protocol was performed and the patient elevated procalcitonin. Given a dose of IV Zosyn. Other laboratory values revealed a low magnesium. IV magnesium was replaced. Patient was bolused with IV normal saline solution. Blood cell count was 11.6. Patient's presentation is consistent with acute pancreatitis. He did have an episode of ventricular tachycardia Triage Nursing notes reviewed and agree with them. External medical records were reviewed including previous hospitalizations. Vital Signs: reviewed and remarkable for tachycardia Differential diagnosis: Cardiac dysrhythmia, cardiac ischemia, perforated viscus, small bowel obstruction, pancreatitis, colitis, diverticulitis ER treatment provided: Cardiac monitoring Twelve-lead EKG IV fentanyl IV amiodarone IV magnesium IV normal saline bolus IV Zosyn Diagnostics interpreted by me: ECG: Atrial fibrillation with rapid ventricular response at a rate of 106. There is no ST segment elevation or signs of ischemia. Cardiac Monitoring: Atrial fibrillation at a rapid rate at approximately 150. Patient was having worsening episodes of ventricular tachycardia Laboratory studies: See below Imaging studies: As per stat rad CT scan of the abdomen/pelvis: See report Portable chest x-ray: As per my independent interpretation Mild pulmonary vascular congestion HPI: 77/M arrives for evaluation of abdominal pain. Patient had developed increasing abdominal pain over the past 48 hours. He was given an enema as he thought he was constipated. Pain has now escalated and nausea and vomiting. PAST MEDICAL HISTORY:See Below PAST SURGICAL HISTORY:See Below FAMILY HISTORY:See Below SOCIAL HISTORY:See Below HOME MEDICATIONS: See list ALLERGIES: See list VITALS:See Below PHYSICAL EXAMINATION: HEENT: Head - normocephalic and atraumatic. Pupils are equal, round, and reactive to light. Extraocular eye muscles are intact, and sclera are anicteric. Nose - moist nasal mucosa without discharge. Mouth - moist buccal mucosa. Oropharynx is nonerythematous and there is no tonsillar exudate or edema noted. Neck: Supple; no JVD or nuchal rigidity Heart: Tachycardic rate and rhythm. There is a normal S1 and S2 with no murmurs, clicks, or gallops appreciated. Lungs: Clear to auscultation bilaterally with no wheezes, rales, or rhonchi. Abdomen: Distended, extremely tender with palpation. There are no palpable pulsatile masses or hepatosplenomegaly. There is moderate guarding, rigidity, or rebound noted. Extremities: No evidence of cyanosis, clubbing, or edema. There are easily palpable peripheral pulses. Skin: warm and dry with good turgor and no rashes. ED COURSE: Times/Reassessments: 330 patient was evaluated in room C4. A complete history and physical was performed including a septic protocol. An order was placed for continuous cardiac monitoring. The patient was in atrial fibrillation with a rapid ventricular response at a rate of 124. Was given a dose of IV fentanyl for his pain. Was bolused with IV normal saline solution. Portable chest x-ray was performed. Patient was noted to have episodes of ventricular tachycardia. He was bolused with IV amiodarone. He went for CT scan of the abdomen/pelvis. Laboratory studies revealed evidence of hypomagnesemia. He was placed on IV magnesium supplementation. He had an elevated procalcitonin concerning for infection. He was given a dose of IV Zosyn. Discussed the case with the hospitalist and they will evaluate for further inpatient care. I have personally spent greater than 70minutes of critical care time in the direct management of this patient. This includes bedside care, interpretation of diagnostic studies, and testing, discussion with consultants, patient, and family members, and other required patient management activities. This 70 minutes is in excess of all separately billable procedures. Montserrat Camacho DO Past Med/Surg History Medical History (Updated 05/21/23 @ 14:49 by Montserrat Camacho DO) Ambulatory dysfunction Atrial fibrillation CAD (coronary artery disease) CHI (closed head injury) CKD (chronic kidney disease) stage 3, GFR 30-59 ml/min CVA (cerebral vascular accident) (2020) Depression Diaphragmatic paralysis Diarrhea DM (diabetes mellitus) Elevated lipase Fall Generalized weakness GERD (gastroesophageal reflux disease) GERD (gastroesophageal reflux disease) History of stroke HTN (hypertension) HTN (hypertension) Hypercholesteremia Hypertriglyceridemia Hypotension Left rib fracture PAF (paroxysmal atrial fibrillation) Physical deconditioning Postoperative atrial fibrillation Presence of arterial stent L leg, unable to relate exact location. Pressure ulcer of right buttock Restless leg syndrome Stroke TIA (transient ischemic attack) Type II diabetes mellitus Surgical History H/O knee surgery stent behind left knee 2017 H/O vasectomy History of angioplasty of peripheral vessel LLE angiogram with AERIAL CROP DUSTER popliteal 05/23/2018 Hx of colonoscopy 2017 S/P CABG x 3 Family History Grandfather Colorectal cancer Mother Diabetes Hypertension Brother Stroke Social History Smoking Status: Former smoker Tobacco Type: Cigarettes Second Hand Exposure: No; Do You Dip or Chew Tobacco: Yes; Hx Alcohol Use: Yes Alcohol type: beer Hx Substance Use: No Preferred Language: Azerbaijani Communication Ability: Effective Communication Ability Comment: Aphasia. Coder Operator Required: No Beliefs That Will Affect Care: None marital status: Single Current Living Situation: Senior Care Current Living Situation Comment: please see nurses notes current occupational status: retired Feels Safe at Home: Yes Assistive Devices: Wheelchair Allergies Allergies Allergy/AdvReac Type Severity Reaction Status Date / Time Corticosteroids Allergy Unknown Unknown Verified 02/18/23 18:57 (Glucocorticoids) niacin Allergy Unknown ARTHRALGIAS Verified 02/18/23 18:57 FROM ADVICOR telithromycin Allergy Unknown ARTHRALGIAS Verified 02/18/23 18:57 FROM ADVICOR atorvastatin AdvReac Intermediate Muscle Pain Verified 02/18/23 18:57 lovastatin AdvReac Intermediate ARTHRALGIAS Verified 02/18/23 18:57 FROM ADVICOR Byiiver-FRU-BtG Reductase AdvReac Intermediate Muscle Pain Verified 02/18/23 18:57 Inhibitor [Aamgesb-Mho-Nxv Reductase Inhibitor] Home Meds Home Medications Medication Instructions Recorded Confirmed multivitamin with minerals 1 tab PO DAILY 03/16/21 05/20/23 pantoprazole 20 mg tablet,delayed 20 mg PO DAILY 02/18/23 05/20/23 release loratadine 10 mg tablet 10 mg PO DAILY 05/20/23 05/20/23 tamsulosin 0.4 mg capsule 0.4 mg PO QAM 05/20/23 05/20/23 Previous Rx's Medication Instructions Recorded acetaminophen 500 mg tablet 1,000 mg PO Q8H PRN pain #30 tabs 02/26/23 (Tylenol Extra Strength) amlodipine 2.5 mg tablet 2.5 mg PO DAILY #30 tabs 02/26/23 apixaban 5 mg tablet (Eliquis) 5 mg PO BID #30 tabs 02/26/23 clopidogrel 75 mg tablet 75 mg PO QAM #30 tabs 02/26/23 ezetimibe 10 mg tablet 10 mg PO QAM #30 tabs 02/26/23 lisinopril 10 mg tablet 10 mg PO DAILY #30 tabs 02/26/23 metoprolol succinate 25 mg 25 mg PO HS #30 tabs 02/26/23 tablet,extended release 24 hr ropinirole 0.5 mg tablet 0.5 mg PO HS #30 tabs 02/26/23 Results & Data (ED) Vital Signs Vital Signs - 24 hr 05/20/23 02:14 05/20/23 02:07 05/20/23 02:12 Temperature 37.3 C Temperature Source Oral Pulse Rate 130 H 134 H 128 H Pulse Rate from SpO2 Sensor Pulse Rhythm Regular Respiratory Rate 34 H 18 Blood Pressure 149/97 H Blood Pressure Mean 114 Pulse Oximetry 91 91 Oxygen Delivery Method Room Air Room Air Sepsis Recent Fever Within 48 Hours Yes Sepsis New/Unexplained Change in Mental Status No Sepsis Action Taken by Nursing Physician Notified 05/20/23 03:26 05/20/23 02:05 05/20/23 02:10 Temperature Temperature Source Pulse Rate 157 H 135 H 134 H Pulse Rate from SpO2 Sensor 135 H 134 H Pulse Rhythm Respiratory Rate 30 H 36 H Blood Pressure Blood Pressure Mean Pulse Oximetry 93 92 Oxygen Delivery Method Sepsis Recent Fever Within 48 Hours Sepsis New/Unexplained Change in Mental Status Sepsis Action Taken by Nursing 05/20/23 02:20 05/20/23 02:30 05/20/23 02:40 Temperature Temperature Source Pulse Rate 131 H 94 H 129 H Pulse Rate from SpO2 Sensor 131 H 70 129 H Pulse Rhythm Respiratory Rate 40 H 35 H 28 H Blood Pressure Blood Pressure Mean Pulse Oximetry 91 92 90 Oxygen Delivery Method Sepsis Recent Fever Within 48 Hours Sepsis New/Unexplained Change in Mental Status Sepsis Action Taken by Nursing 05/20/23 02:50 05/20/23 03:00 05/20/23 03:10 Temperature Temperature Source Pulse Rate 121 H 126 H 120 H Pulse Rate from SpO2 Sensor 79 127 H 99 H Pulse Rhythm Respiratory Rate 13 33 H 28 H Blood Pressure Blood Pressure Mean Pulse Oximetry 90 90 90 Oxygen Delivery Method Sepsis Recent Fever Within 48 Hours Sepsis New/Unexplained Change in Mental Status Sepsis Action Taken by Nursing 05/20/23 03:20 05/20/23 03:52 05/20/23 03:51 Temperature Temperature Source Pulse Rate 157 H 185 H 152 H Pulse Rate from SpO2 Sensor 141 H Pulse Rhythm Respiratory Rate 26 H Blood Pressure Blood Pressure Mean Pulse Oximetry 93 Oxygen Delivery Method Sepsis Recent Fever Within 48 Hours Sepsis New/Unexplained Change in Mental Status Sepsis Action Taken by Nursing Laboratory Data 05/20/23 02:24 05/20/23 02:24 Lab Results 05/20/23 05/20/23 05/20/23 Range/Units 02:24 02:24 02:24 WBC 11.69 H (4.8-10.8) K/ul RBC 4.60 L (4.70-6.10) M/uL Hgb 14.4 (14.0-18.0) g/dl POC Hgb (14.0-18.0) g/dl Hct 41.2 L (42.0-52.0) % POC Hct (42-52) % MCV 89.6 (80.0-100.0) fL MCH 31.3 (25.0-34.0) pg MCHC 35.0 (32.0-36.0) g/dL RDW Std Deviation 40.6 (36.4-46.3) fL RDW Coeff of Brice 12.5 (11.5-14.5) % Plt Count 136 (130-400) K/uL MPV 11.7 (9.4-12.4) fL Immature Gran % (Auto) 0.3 % Neut % (Auto) 92.6 % Lymph % (Auto) 3.3 % [place] % (Auto) 3.4 % Eos % (Auto) 0.2 % Baso % (Auto) 0.2 % Neut # (Auto) 10.82 H (1.40-6.50) K/uL Lymph # (Auto) 0.39 L (1.20-3.40) K/uL [place] # (Auto) 0.40 (0.11-0.59) K/uL Eos # (Auto) 0.02 (0.00-0.50) K/uL Baso # (Auto) 0.02 (0.00-0.20) K/uL Immature Gran # (Auto) 0.04 (0.01-0.20) K/uL PT 11.6 (9.0-12.0) Seconds INR 1.1 (0.9-1.1) APTT 30.3 (21.0-31.0) Seconds PTT Ratio 1.1 POC Sodium (135-144) mmol/L Sodium 139 (136-145) mmol/L POC Potassium (3.3-5.0) mmol/L Potassium 3.6 (3.5-5.1) mmol/L POC Chloride (101-112) mmol/L Chloride 106 (98-107) mmol/L Carbon Dioxide 23 (21-32) mmol/L POC Total CO2 (24-31) mmol/L Anion Gap 10 (3-11) POC Anion Gap (16-25) mmol/L POC BUN (7-18) mg/dl BUN 18 (6-23) mg/dl Creatinine 1.62 H (0.6-1.4) mg/dl POC Creatinine (0.6-1.3) mg/dl Est Cr Clr Drug Dosing 40.0 ml/min Est GFR ( Amer) 46.7 ml/min Est GFR (Non-Af Amer) 40.3 ml/min BUN/Creatinine Ratio 11.1 (10-20) Glucose 192 H (70-99(Fasting)) mg/dl POC Glucose (other) (70-99) mg/dl Lactate (0.4-2.0) mmol/L Calcium 9.1 (8.6-10.3) mg/dl POC Ioniz Calcium Delmy (1.12-1.32) mmol/l Magnesium 1.4 L (1.7-2.4) mg/dl Total Bilirubin 1.4 H (0.2-1.0) mg/dl AST 93 H (13-39) U/L ALT 65 H (7-52) U/L Alkaline Phosphatase 96 (34-104) U/L Troponin I High Sens 12.7 (0-20) pg/ml Total Protein 6.9 (6.0-8.3) gm/dl Albumin 4.2 (3.4-5.0) gm/dl Globulin 2.7 (2.5-4.0) gm/dl Albumin/Globulin Ratio 1.6 (0.9-2) Lipase 4797 H (11-82) U/L Procalcitonin (0-0.5) ng/ml TSH (0.300-4.500) uIu/ml Urine Color Urine Appearance (Clear) Urine pH (4.5-7.5) Ur Specific [place] (1.000-1.030) Urine Protein (Negative) Urine Glucose (UA) (Negative) Urine Ketones (Negative) Urine Blood (Negative) Urine Nitrite (Negative) Urine Bilirubin (Negative) Urine Urobilinogen (Negative) Ur Leukocyte Esterase (Negative) Urine WBC (Auto) (0-5) /hpf Urine RBC (Auto) (0-4) /hpf U Hyaline Cast (Auto) (0-5) /lpf U Epithel Cells (Auto) (0-5) /lpf Urine Bacteria (Auto) (Negative) 05/20/23 05/20/23 05/20/23 Range/Units 02:24 02:24 02:28 WBC (4.8-10.8) K/ul RBC (4.70-6.10) M/uL Hgb (14.0-18.0) g/dl POC Hgb 15.0 (14.0-18.0) g/dl Hct (42.0-52.0) % POC Hct 44 (42-52) % MCV (80.0-100.0) fL MCH (25.0-34.0) pg MCHC (32.0-36.0) g/dL RDW Std Deviation (36.4-46.3) fL RDW Coeff of Brice (11.5-14.5) % Plt Count (130-400) K/uL MPV (9.4-12.4) fL Immature Gran % (Auto) % Neut % (Auto) % Lymph % (Auto) % [place] % (Auto) % Eos % (Auto) % Baso % (Auto) % Neut # (Auto) (1.40-6.50) K/uL Lymph # (Auto) (1.20-3.40) K/uL [place] # (Auto) (0.11-0.59) K/uL Eos # (Auto) (0.00-0.50) K/uL Baso # (Auto) (0.00-0.20) K/uL Immature Gran # (Auto) (0.01-0.20) K/uL PT (9.0-12.0) Seconds INR (0.9-1.1) APTT (21.0-31.0) Seconds PTT Ratio POC Sodium 140 (135-144) mmol/L Sodium (136-145) mmol/L POC Potassium 3.6 (3.3-5.0) mmol/L Potassium (3.5-5.1) mmol/L POC Chloride 105 (101-112) mmol/L Chloride (98-107) mmol/L Carbon Dioxide (21-32) mmol/L POC Total CO2 20 L (24-31) mmol/L Anion Gap (3-11) POC Anion Gap 19.0 (16-25) mmol/L POC BUN 18 (7-18) mg/dl BUN (6-23) mg/dl Creatinine (0.6-1.4) mg/dl POC Creatinine 1.6 H (0.6-1.3) mg/dl Est Cr Clr Drug Dosing ml/min Est GFR ( Amer) ml/min Est GFR (Non-Af Amer) ml/min BUN/Creatinine Ratio (10-20) Glucose (70-99(Fasting)) mg/dl POC Glucose (other) 191 H (70-99) mg/dl Lactate (0.4-2.0) mmol/L Calcium (8.6-10.3) mg/dl POC Ioniz Calcium Delmy 1.17 (1.12-1.32) mmol/l Magnesium (1.7-2.4) mg/dl Total Bilirubin (0.2-1.0) mg/dl AST (13-39) U/L ALT (7-52) U/L Alkaline Phosphatase (34-104) U/L Troponin I High Sens (0-20) pg/ml Total Protein (6.0-8.3) gm/dl Albumin (3.4-5.0) gm/dl Globulin (2.5-4.0) gm/dl Albumin/Globulin Ratio (0.9-2) Lipase (11-82) U/L Procalcitonin 0.63 H (0-0.5) ng/ml TSH 3.399 (0.300-4.500) uIu/ml Urine Color Urine Appearance (Clear) Urine pH (4.5-7.5) Ur Specific [place] (1.000-1.030) Urine Protein (Negative) Urine Glucose (UA) (Negative) Urine Ketones (Negative) Urine Blood (Negative) Urine Nitrite (Negative) Urine Bilirubin (Negative) Urine Urobilinogen (Negative) Ur Leukocyte Esterase (Negative) Urine WBC (Auto) (0-5) /hpf Urine RBC (Auto) (0-4) /hpf U Hyaline Cast (Auto) (0-5) /lpf U Epithel Cells (Auto) (0-5) /lpf Urine Bacteria (Auto) (Negative) 05/20/23 05/20/23 05/20/23 Range/Units 04:00 05:40 06:10 WBC (4.8-10.8) K/ul RBC (4.70-6.10) M/uL Hgb (14.0-18.0) g/dl POC Hgb (14.0-18.0) g/dl Hct (42.0-52.0) % POC Hct (42-52) % MCV (80.0-100.0) fL MCH (25.0-34.0) pg MCHC (32.0-36.0) g/dL RDW Std Deviation (36.4-46.3) fL RDW Coeff of Brice (11.5-14.5) % Plt Count (130-400) K/uL MPV (9.4-12.4) fL Immature Gran % (Auto) % Neut % (Auto) % Lymph % (Auto) % [place] % (Auto) % Eos % (Auto) % Baso % (Auto) % Neut # (Auto) (1.40-6.50) K/uL Lymph # (Auto) (1.20-3.40) K/uL [place] # (Auto) (0.11-0.59) K/uL Eos # (Auto) (0.00-0.50) K/uL Baso # (Auto) (0.00-0.20) K/uL Immature Gran # (Auto) (0.01-0.20) K/uL PT (9.0-12.0) Seconds INR (0.9-1.1) APTT (21.0-31.0) Seconds PTT Ratio POC Sodium (135-144) mmol/L Sodium (136-145) mmol/L POC Potassium (3.3-5.0) mmol/L Potassium (3.5-5.1) mmol/L POC Chloride (101-112) mmol/L Chloride (98-107) mmol/L Carbon Dioxide (21-32) mmol/L POC Total CO2 (24-31) mmol/L Anion Gap (3-11) POC Anion Gap (16-25) mmol/L POC BUN (7-18) mg/dl BUN (6-23) mg/dl Creatinine (0.6-1.4) mg/dl POC Creatinine (0.6-1.3) mg/dl Est Cr Clr Drug Dosing ml/min Est GFR ( Amer) ml/min Est GFR (Non-Af Amer) ml/min BUN/Creatinine Ratio (10-20) Glucose (70-99(Fasting)) mg/dl POC Glucose (other) (70-99) mg/dl Lactate 2.5 H* 2.3 H* (0.4-2.0) mmol/L Calcium (8.6-10.3) mg/dl POC Ioniz Calcium Delym (1.12-1.32) mmol/l Magnesium (1.7-2.4) mg/dl Total Bilirubin (0.2-1.0) mg/dl AST (13-39) U/L ALT (7-52) U/L Alkaline Phosphatase (34-104) U/L Troponin I High Sens (0-20) pg/ml Total Protein (6.0-8.3) gm/dl Albumin (3.4-5.0) gm/dl Globulin (2.5-4.0) gm/dl Albumin/Globulin Ratio (0.9-2) Lipase (11-82) U/L Procalcitonin (0-0.5) ng/ml TSH (0.300-4.500) uIu/ml Urine Color Dark Yellow Urine Appearance Clear (Clear) Urine pH 5.0 (4.5-7.5) Ur Specific [place] 1.013 (1.000-1.030) Urine Protein Trace H (Negative) Urine Glucose (UA) Negative (Negative) Urine Ketones Negative (Negative) Urine Blood Negative (Negative) Urine Nitrite Negative (Negative) Urine Bilirubin Negative (Negative) Urine Urobilinogen Negative (Negative) Ur Leukocyte Esterase Negative (Negative) Urine WBC (Auto) 1-5 (0-5) /hpf Urine RBC (Auto) 0-4 (0-4) /hpf U Hyaline Cast (Auto) 1-5 (0-5) /lpf U Epithel Cells (Auto) 0-5 (0-5) /lpf Urine Bacteria (Auto) Negative (Negative) Administered Medications Amlodipine Besylate (Amlodipine Besylate 5 Mg Tab) 2.5 mg PO DAILY [facility] Stop: 06/19/23 08:59 Last Admin: 05/21/23 08:24 Dose: 2.5 mg Documented By: Admin: 05/20/23 10:25 Dose: 2.5 mg Documented By: BRYAN Apixaban (Apixaban 5 Mg Tablet) 5 mg PO BID [facility] Stop: 06/19/23 08:59 Last Admin: 05/21/23 08:24 Dose: 5 mg Documented By: Admin: 05/20/23 21:37 Dose: 5 mg Documented By: Admin: 05/20/23 10:27 Dose: 5 mg Documented By: BRYAN Clopidogrel Bisulfate (Clopidogrel Bisulfate 75 Mg Tab) 75 mg PO QAM [facility] Stop: 06/19/23 08:59 Last Admin: 05/21/23 08:24 Dose: 75 mg Documented By: Admin: 05/20/23 10:25 Dose: 75 mg Documented By: BRYAN [facility] ([facility] 10 Mg Tab) [facility]: 06/19/23 08:59 Last Admin: 05/21/23 08:25 Dose: 10 mg Documented By: Admin: 05/20/23 10:27 Dose: 10 mg Documented By: BRYAN Piperacillin Sod/Tazobactam (Sod 4.5 gm/ Dextrose) 120 mls @ 30 mls/hr IV Q8H [facility]; Protocol Stop: 05/22/23 11:59 Last Admin: 05/21/23 12:13 Dose: 30 mls/hr Documented By: Infusion: 05/21/23 08:38 Dose: 0 mls/hr Documented By: Admin: 05/21/23 04:04 Dose: 30 mls/hr Documented By: Infusion: 05/21/23 01:24 Dose: 0 mls/hr Documented By: Admin: 05/20/23 21:24 Dose: 30 mls/hr Documented By: Infusion: 05/20/23 16:56 Dose: 0 mls/hr Documented By: Admin: 05/20/23 12:19 Dose: 30 mls/hr Documented By: BRYON Pantoprazole Sodium 40 mg/ (Syringe) 10 mls @ 5 mls/min IV BID [facility] Stop: 06/19/23 20:59 Last Admin: 05/21/23 08:24 Dose: 5 mls/min Documented By: Admin: 05/20/23 21:19 Dose: 5 mls/min Documented By: DEWAYNE Sodium Chloride (Nss 1000ml) 1,000 mls @ 100 mls/hr IV .Q10H [facility] Stop: 06/20/23 11:44 Last Admin: 05/21/23 12:13 Dose: 100 mls/hr Documented By: BUSHRA Insulin Aspart (Insulin Aspart Per Unit Charge) 0 units SC Q6 [facility] Stop: 06/19/23 17:59 Last Admin: 05/21/23 12:18 Dose: Not Given Documented By: Admin: 05/21/23 06:27 Dose: Not Given Documented By: DEWAYNE Co-signed By: SARIAH Admin: 05/21/23 00:23 Dose: Not Given Documented By: DEWAYNE Co-signed By: SARIAH Admin: 05/20/23 18:12 Dose: Not Given Documented By: KECIA Lisinopril (Lisinopril 10 Mg Tab) 10 mg PO DAILY [facility] Stop: 06/19/23 08:59 Last Admin: 05/21/23 08:25 Dose: 10 mg Documented By: Admin: 05/20/23 10:27 Dose: 10 mg Documented By: BRYAN Loratadine (Loratadine 10 Mg Tab) 10 mg PO DAILY [facility] Stop: 06/19/23 08:59 Last Admin: 05/21/23 08:24 Dose: 10 mg Documented By: Admin: 05/20/23 10:26 Dose: 10 mg Documented By: BRYAN Metoprolol Succinate (Metoprolol Succ 25mg Ext Rel Tab) [address] [facility] Stop: 06/19/23 20:59 Last Admin: 05/20/23 21:38 Dose: 25 mg Documented By: DEWAYNE Ropinirole HCl (Ropinirole Hcl 0.25 Mg Tablet) 0.[address] [facility] Stop: 06/19/23 20:59 Last Admin: 05/20/23 21:37 Dose: 0.5 mg Documented By: DEWAYNE Tamsulosin HCl (Tamsulosin Hcl 0.4 Mg Cap) 0.[facility] Stop: 06/19/23 08:59 Last Admin: 05/21/23 08:24 Dose: 0.4 mg Documented By: Admin: 05/20/23 10:26 Dose: 0.4 mg Documented By: BRYAN Discontinued Medications Amiodarone HCl/Dextrose (Amiodarone 360mg / 200ml D5w) Confirm Administered Dose 360 mg IV .STK-MED ONE Stop: 05/20/23 03:56 Last Admin: 05/20/23 05:31 Dose: Not Given Documented By: RADHA Amiodarone HCl/Dextrose (Amiodarone 150mg / 100ml D5w) Confirm Administered Dose 150 mg IV .STK-MED ONE Stop: 05/20/23 03:56 Last Admin: 05/20/23 04:00 Dose: 150 mg Documented By: RADHA Co-signed By: DARIO Amiodarone HCl/Dextrose (Amiodarone 150mg / 100ml D5w) Confirm Administered Dose 150 mg IV .STK-MED ONE Stop: 05/20/23 03:57 Last Admin: 05/20/23 05:34 Dose: Not Given Documented By: RADHA Fentanyl Citrate (Fentanyl Citrate Pf 100 Mcg/2 Ml Vial) 50 mcg IV NOW STA Stop: 05/20/23 03:43 Last Admin: 05/20/23 03:48 Dose: 50 mcg Documented By: RADHA Sodium Chloride (Nss 1000ml) 1,000 mls @ 999 mls/hr IV .Q1H1M ONE Stop: 05/20/23 04:42 Last Infusion: 05/20/23 05:38 Dose: 0 mls/hr Documented By: Admin: 05/20/23 03:48 Dose: 999 mls/hr Documented By: RADHA Magnesium Sulfate/Dextrose (Magnesium Sulfate / D5w) 1 gm in 100 mls @ 100 mls/hr IV NOW STA Stop: 05/20/23 05:20 Last Infusion: 05/20/23 07:00 Dose: 0 mls/hr Documented By: Admin: 05/20/23 05:57 Dose: 100 mls/hr Documented By: RADHA Piperacillin Sod/Tazobactam Sod (Zosyn) 4.5 gm in 120 mls @ 240 mls/hr IV NOW ONE Stop: 05/20/23 05:47 Last Infusion: 05/20/23 07:00 Dose: 0 mls/hr Documented By: Admin: 05/20/23 05:57 Dose: 240 mls/hr Documented By: RADHA Lactated Ringer's (Lr) 1,000 mls @ 150 mls/hr IV .Q6H40M [facility] Stop: 05/21/23 02:43 Last Infusion: 05/21/23 06:31 Dose: 0 mls/hr Documented By: Admin: 05/20/23 23:50 Dose: 150 mls/hr Documented By: Infusion: 05/20/23 23:50 Dose: 150 mls/hr Documented By: Admin: 05/20/23 16:06 Dose: 150 mls/hr Documented By: Infusion: 05/20/23 15:35 Dose: 200 mls/hr Documented By: Admin: 05/20/23 10:35 Dose: 200 mls/hr Documented By: BRYAN Magnesium Sulfate/Dextrose (Magnesium Sulfate / D5w) 1 gm in 100 mls @ 50 mls/h r IV Q2H [facility] Stop: 05/20/23 12:41 Last Infusion: 05/20/23 16:12 Dose: 0 mls/hr Documented By: Admin: 05/20/23 13:00 Dose: 50 mls/hr Documented By: Infusion: 05/20/23 12:24 Dose: 50 mls/hr Documented By: Admin: 05/20/23 10:24 Dose: 50 mls/hr Documented By: BRYNA Insulin Aspart (Insulin Aspart Per Unit Charge) 0 units SC ACHS RUPINDER Stop: 06/19/23 08:41 Last Admin: 05/20/23 13:09 Dose: 1 units Documented By: BRYON Co-signed By: IMMANUEL Admin: 05/20/23 11:49 Dose: Not Given Documented By: BRYON Ioversol (Optiray 320 100ml) 92 ml IV ONCE ONE Stop: 05/20/23 04:33 Last Admin: 05/20/23 04:33 Dose: 92 ml Documented By: REINALDO Ondansetron HCl (Ondansetron Inj 2 Mg/Ml 2 Ml Vial) 4 mg IV NOW STA Stop: 05/20/23 03:43 Last Admin: 05/20/23 03:48 Dose: 4 mg Documented By: RADHA Pantoprazole Sodium (Pantoprazole 40 Mg Tab) 20 mg PO DAILY RUPINDER Stop: 06/19/23 08:59 Last Admin: 05/20/23 10:26 Dose: 20 mg Documented By: BRYAN Potassium Chloride (Potassium Chloride 20 Meq/15 Ml Udc) 40 meq PO QAM ONE Stop: 05/20/23 09:01 Last Admin: 05/20/23 12:52 Dose: Not Given Documented By: BRYON Potassium Chloride (Potassium Chloride 20 Meq/15 Ml Udc) Confirm Administered Dose 20 meq .ROUTE .STK-MED ONE Stop: 05/20/23 12:03 Last Admin: 05/20/23 14:58 Dose: 20 meq Documented By: BRYON Imaging Data Radiologist's Impression: Abdomen/Pelvis CT 05/20/23 03:41 Exam(s): CT ABDOMEN + PELVIS With Contrast IV Amt: 92 ml opti 320 EXAM: CT Abdomen and Pelvis With Intravenous Contrast CLINICAL HISTORY: Evaluate for pancreatitis versus small bowel obstruction. TECHNIQUE: Axial computed tomography images of the abdomen and pelvis with intravenous contrast. CTDI is 25.77 mGy and DLP is 1450.73 mGy-cm. Automated exposure control was utilized for the study. A dose lowering technique was utilized adhering to the principles of ALARA. CONTRAST: Patient received 92 ml opti 320 of IV contrast COMPARISON: CT abdomen and pelvis 02/18/2023. FINDINGS: Lung bases: Bibasilar airspace opacities are present. ABDOMEN: Liver: Unremarkable. No mass. Gallbladder and bile ducts: Unremarkable. No calcified stones. No ductal dilation. Pancreas: There is inflammatory stranding of the pancreas. No ductal dilation. Spleen: Unremarkable. No splenomegaly. Adrenals: There is a 1.2 cm left 0.5 and 1.2 cm adrenal adenomas. No polyp is needed. The right adrenal gland is unremarkable. Kidneys and ureters: Atrophic left kidney. No hydronephrosis. Stomach and bowel: There is thickening of the wall of the distal stomach and duodenum which is likely reactive. Nonspecific thickening of the rectum. No bowel obstruction. PELVIS: Appendix: No findings to suggest acute appendicitis. Bladder: Unremarkable. No mass. Reproductive: Unremarkable as visualized. ABDOMEN and PELVIS: Intraperitoneal space: Unremarkable. No free air. No significant fluid collection. Bones/joints: No acute fracture. No dislocation. Soft tissues: Small bilateral fat-containing inguinal hernias. Vasculature: Mild atherosclerosis. No abdominal aortic aneurysm. Lymph nodes: Unremarkable. No enlarged lymph nodes. IMPRESSION: 1. There is inflammatory stranding of the pancreas. This is most consistent with acute pancreatitis. No hemorrhage, necrosis or organized peripancreatic fluid collection. 2. No bowel obstruction. 3. There is thickening of the wall of the distal stomach and duodenum which is likely reactive. 4. Atrophic left kidney. 5. Nonspecific thickening of the rectum. 6. Bibasilar airspace opacities may represent pulmonary edema, atelectasis or atypical infection. Electronically signed by: Helga Salazar MD 05/20/23 05:28 AM Discharge Plan Visit Data Chief Complaint: Abdominal Pain Stated Complaint: Abdominal Pain, Vomiting ED Provider: Montserrat Camacho Discharge Problem: Acute pancreatitis, Ventricular tachycardia, Hypomagnesemia Patient Disposition: Admitted As Inpatient Discharge Instructions Interventions: ED Discharge Assessment Last Done: 05/20/23 08:41
[2023-05-20 07:12] LABS: Appearance Urine Clear (Clear); Bacteria Urine Automated Negative (Negative); Bilirubin Urine Negative (Negative); Blood Urine Negative (Negative); Color Urine Dark Yellow; Epithelial Cell Urine Auto 0-5 /lpf (0-5); Glucose Urine UA Negative (Negative); Ketones Urine Negative (Negative); Leukocyte Esterase Urine Negative (Negative); Nitrite Urine Negative (Negative); Protein Urine Trace (Negative); RBC Urine Automated 0-4 /hpf (0-4); Specific Gravity Urine 1.013 (1.000-1.030); Urobilinogen Urine Negative (Negative)
--- NOTE | 2023-05-20 08:09 | XRay Report ---
XR chest 1V portable HISTORY: eval for sepsis COMPARISON: Chest 02/18/2023. FINDINGS: There are low lung volumes. No pneumothorax. Linear density within the periphery of the lef t upper lobe favors a skin fold. Left upper lobe calcified granulomas again noted. There are postster notomy changes. The heart is normal in size. There is progressive interstitial/vascular thickening soni ggestive of mild congestive change. No new focal lung consolidations identified. The heart is stable in size. No pleural effusions. IMPRESSION: Progressive interstitial/vascular thickening consistent with mild congestive change. ACT 112: Negative or not required by law. Electronically signed by: Chris Oliveira M.D. 05/20/2023 8:08 AM
[2023-05-20] MEDS ORDERED: ONDANSETRON INJ 2 MG/ML 2 ML VIAL IV PRN (08:42)
[2023-05-20] MEDS ORDERED: GLUCAGON FOR INJ 1 MG VIAL SQ PRN (08:42)
[2023-05-20] MEDS ORDERED: MoRPHine SULFATE 4 MG/ML 1 ML CARP\\VIAL IV PRN (08:42)
[2023-05-20] MEDS ORDERED: DEXTROSE 50% 50 ML SYRINGE IV PRN (08:42)
[2023-05-20] MEDS ORDERED: CARBOHYDRATES FOR HYPOGLYCEMIA PO PRN (08:42)
[2023-05-20] MEDS ORDERED: GLUCOSE 10 TAB/TUBE PO PRN (08:42)
[2023-05-20] MEDS ORDERED: GLUCOSE 40% GEL 15 GM TUBE PO PRN (08:42)
[2023-05-20] MEDS ORDERED: ACETAMINOPHEN 325 MG TAB PO PRN (08:42)
[2023-05-20] MEDS ORDERED: MoRPHine SULFATE 2 MG/ML CARP IV PRN (08:42)
[2023-05-20] MEDS ORDERED: PANTOprazole 40 MG TAB PO SCH (09:00)
[2023-05-20] MEDS ORDERED: POTASSIUM CHLORIDE 20 MEQ/15 ML UDC PO ONE (09:00)
[2023-05-20] MEDS: MAGNESIUM SULFATE / D5W 1 GM/100 ML BAG IV SCH ×2 (10:24→13:00)
[2023-05-20] MEDS: amLODIPine BESYLATE 5 MG TAB PO SCH (10:25)
[2023-05-20] MEDS: CLOPIDOGREL BISULFATE 75 MG TAB PO SCH (10:25)
[2023-05-20] MEDS: LORATADINE 10 MG TAB PO SCH (10:26)
[2023-05-20] MEDS: TAMSULOSIN HCL 0.4 MG CAP PO SCH (10:26)
[2023-05-20] MEDS: lisinopril 10 MG TAB PO SCH (10:27)
[2023-05-20] MEDS: EZETIMIBE 10 MG TAB PO SCH (10:27)
[2023-05-20] MEDS: APIXABAN 5 MG TABLET PO SCH ×2 (10:27→21:37)
[2023-05-20] MEDS: LACTATED RINGER'S 1,000 ML IV SCH ×3 (10:35→23:50)
[2023-05-20 11:27] LABS: Phosphorus 1.7 mg/dl (2.5-4.9)
[2023-05-20] MEDS: INSULIN ASPART PER UNIT CHARGE SC SCH ×3 (11:49→18:12)
[2023-05-20] MEDS ORDERED: POTASSIUM CHLORIDE 20 MEQ/15 ML UDC ONE (12:02)
[2023-05-20] MEDS: PIPERACILLIN/TAZOBACTAM 4.5 GM in DEXTROSE 5% 100 ML IV SCH ×2 (12:19→21:24)
--- NOTE | 2023-05-20 14:42 | Hospitalist Progress Note ---
Date of Service May 20, 2023 Assessment & Plan (1) Acute pancreatitis: Plan: Continue n.p.o. status. IV fluids. Antiemetics as needed. Serial lab studies. Await triglyceride level. He is a nondrinker. CT scan obtained on admission negative for cholelithiasis or choledocholithiasis. (2) Nonsustained ventricular tachycardia: Plan: Past history of NSVT. Currently on amiodarone drip. Telemetry. Cardiology consultation requested. Will correct electrolyte abnormalities. (3) CAD (coronary artery disease): Plan: History of. s/p CABG x 3V with stents. No chest pain. Stable. 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 Stable. Continue current medical management with Plavix, Eliquis, Zetia (5) GERD (gastroesophageal reflux disease): Plan: Stable. Continue Protonix therapy (6) HTN (hypertension): Plan: Elevated blood pressure in the ER. Pain control. Continue Amlodipine, Lisinopril and Metoprolol (7) DM (diabetes mellitus): Plan: Diet controlled. Last NvmA4H=7.4 on 04/02/23. Sliding scale coverage as needed. Plan Hopeful discharge to home sometime next week Admission and Anticipated Discharge Date Admission Date: May 20, 2023 Subjective Alert and oriented. He states he feels better since treatment initiated in the ED. There is dried vomitus on the left cheek. Admission lipase 4797. We will continue n.p.o. status along with IV fluids. He remains on a amiodarone drip for his nonsustained V. tach which she has intermittently and is not new. Nevertheless, cardiology consultation requested. Will monitor daily lab studies. Mild acute kidney injury with creatinine 1.6. Review of Systems Review of Systems: Constitutional-no fever or chills ENT-no blurred vision, no double vision, no epistaxis, no sore throat Respiratory-no cough, no wheezing, no shortness of breath Cardiac- no chest pain, no syncope. He states he can tell when he is in ventricular tachycardia GI-upper abdominal pain. Nausea and vomiting. No hematemesis. No melena or hematochezia -no urinary retention, no urinary incontinence, no dysuria, no hematuria Musculoskeletal-no joint pain, no muscle tenderness Skin-no bruising, no rashes, no pruritus Neuro-no isolated weakness, no paresthesia, no weakness Psych-no depression, no anxiety Physical Exam Physical Exam: General-alert and oriented x3, no fevers, no chills HEENT-head atraumatic and normocephalic, pupils equal and reactive to light, extraocular muscles intact Neck-no lymphadenopathy or thyromegaly, trachea midline Chest-clear to auscultation percussion. No rales wheezing or rhonchi Cardiac-irregular rhythm. Controlled rate. Normal S1 and S2. Abdomen-mildly distended. Hypoactive bowel sounds but present. Mild diffuse tenderness. No rebound or guarding. No masses Extremities-no cyanosis, clubbing, or edema Neuro-cranial nerves II through XII intact, motor and sensory function within normal limits, strength symmetrical , no focal deficits Psych-normal affect, normal mood Results & Data Results & Data Vital Signs (Past 12 Hours) Vital Signs Temp Pulse Pulse Resp BP BP Pulse Ox 05/20/23 14:08 127 H 19 100 05/20/23 13:12 36.8 C 76 18 121/63 97 05/20/23 11:48 05/20/23 11:47 36.8 C 68 18 124/68 100 05/20/23 11:35 36.8 C 62 108/61 100 05/20/23 08:43 96 H 24 110/69 95 05/20/23 07:23 100 H 05/20/23 07:00 105 H 31 H 91 05/20/23 06:45 104 H 34 H 104/66 91 05/20/23 06:30 100 H 20 92 05/20/23 06:15 113 H 30 H 102/59 L 92 05/20/23 06:00 104 H 28 H 107/62 95 05/20/23 05:45 103 H 35 H 106/69 93 05/20/23 05:30 110 H 17 94 05/20/23 05:30 104/70 05/20/23 05:15 111 H 27 H 101/61 95 05/20/23 05:00 131 H 20 124/69 95 05/20/23 04:45 116 H 32 H 113/77 91 05/20/23 04:43 100 H 24 123/88 92 05/20/23 04:40 113 H 29 H 90 05/20/23 04:15 128 H 32 H 115/79 94 05/20/23 04:10 135 H 31 H 96 05/20/23 04:10 111/79 05/20/23 04:10 111/79 05/20/23 04:00 130 H 28 H 111/87 93 05/20/23 03:58 164 H 33 H 104/84 93 05/20/23 03:38 121 H 38 H 105/81 96 05/20/23 03:30 129 H 19 92 05/20/23 03:51 152 H 05/20/23 03:52 185 H 05/20/23 03:20 157 H 26 H 93 05/20/23 03:10 120 H 28 H 90 05/20/23 03:00 126 H 33 H 90 05/20/23 02:50 121 H 13 90 05/20/23 02:40 129 H 28 H 90 05/20/23 03:26 157 H Pulse Ox O2 Del Method O2 Del Method O2 Flow Rate O2 Flow Rate 05/20/23 14:08 Nasal Cannula 2 05/20/23 13:12 Nasal Cannula 05/20/23 11:48 100 Nasal Cannula, Oxyhood 2 05/20/23 11:47 Nasal Cannula 2 05/20/23 11:35 Nasal Cannula 98 05/20/23 08:43 Room Air 05/20/23 07:23 05/20/23 07:00 05/20/23 06:45 05/20/23 06:30 05/20/23 06:15 05/20/23 06:00 05/20/23 05:45 05/20/23 05:30 05/20/23 05:30 05/20/23 05:15 05/20/23 05:00 05/20/23 04:45 05/20/23 04:43 05/20/23 04:40 05/20/23 04:15 05/20/23 04:10 05/20/23 04:10 05/20/23 04:10 05/20/23 04:00 05/20/23 03:58 05/20/23 03:38 05/20/23 03:30 05/20/23 03:51 05/20/23 03:52 05/20/23 03:20 05/20/23 03:10 05/20/23 03:00 05/20/23 02:50 05/20/23 02:40 05/20/23 03:26 Laboratory Results 05/20/23 02:24 05/20/23 02:24 PG Care Time/CCT Total # of Minutes Spent Total Time Spent with Patient: Total time spent is greater than 50% in coordination of care (as documented) at patient's floor/unit and/or counseling patient: Coding Level of Care Code 27083 SUB INP/OBS CARE 3/50MIN Diagnoses Acute pancreatitis K85.90 Nonsustained ventricular tachycardia I47.29 CAD (coronary artery disease) I25.110 Associated angina: with unstable angina Coronary Disease-Associated Artery/Lesion type: [place] artery [place] vs. transplanted heart: [place] heart CVA (cerebral vascular accident) I63.9 GERD (gastroesophageal reflux disease) K21.9 HTN (hypertension) I10 Hypertension type: essential hypertension DM (diabetes mellitus) E11.9 Diabetes mellitus type: type 2 Diabetes mellitus long term care phlebotomist insulin use: without detention use Diabetes mellitus complication status: without complication (3) CAD (coronary artery disease) Associated angina: with unstable angina Coronary Disease-Associated Artery/Lesion type: [place] artery [place] vs. transplanted heart: [place] heart Qualified Code(s): I25.110 - Atherosclerotic heart disease of [place] coronary artery with unstable angina pectoris (6) HTN (hypertension) Hypertension type: essential hypertension Qualified Code(s): I10 - Essential (primary) hypertension (7) DM (diabetes mellitus) Diabetes mellitus type: type 2 Diabetes mellitus detention insulin use: without long term care phlebotomist use Diabetes mellitus complication status: without complication Qualified Code(s): E11.9 - Type 2 diabetes mellitus without complications
--- NOTE | 2023-05-20 16:36 | Electrocardiogram Report ---
Test Reason : Blood Pressure : / mmHG Vent. Rate : 135 BPM Atrial Rate : 135 BPM P-R Int : 146 ms QRS Dur : 088 ms QT Int : 286 ms P-R-T Axes : 003 -23 049 degrees QTc Int : 429 ms Sinus tachycardia Incomplete right bundle branch block Abnormal ECG When compared with ECG of 18-FEB-2023 16:10, No significant change was found Confirmed by Scar Strauss ([id number]) on 05/20/2023 4:36:10 PM Referred By: REFERRED SELF Confirmed By:Scar Strauss
--- NOTE | 2023-05-20 16:37 | Electrocardiogram Report ---
Test Reason : Blood Pressure : / mmHG Vent. Rate : 106 BPM Atrial Rate : 000 BPM P-R Int : 000 ms QRS Dur : 088 ms QT Int : 350 ms P-R-T Axes : 000 -13 036 degrees QTc Int : 464 ms Atrial fibrillation with rapid ventricular response Cannot rule out Old Septal infarct (cited on or before 20-MAY-2023) Abnormal ECG When compared with ECG of 20-MAY-2023 02:06, Atrial fibrillation has replaced Sinus rhythm Borderline Criteria for Septal infarct now present HR has decreased by 29 bpm Confirmed by Scar Strauss ([id number]) on 05/20/2023 4:37:02 PM Referred By: REFERRED SELF Confirmed By:Scar Strauss
--- NOTE | 2023-05-20 19:13 | Cardiology Consultation ---
Date of Consultation May 20, 2023 Assessment & Plan (1) Atrial flutter with rapid ventricular response: (2) Paroxysmal atrial fibrillation with rapid ventricular response: (3) Wide-complex tachycardia: (4) Acute pancreatitis: (5) CAD (coronary artery disease): (6) S/P CABG x 3: (7) Sinus bradycardia: (8) Anticoagulated: Plan 77-year-old man with known CAD who is status post CABG 2019 admitted with acute pancreatitis who had transient dysrhythmias in the setting of acute pain, hypomagnesemia, and borderline hypokalemia. As noted, he appeared to have predominantly atrial dysrhythmias, his single 6 beat episode of wide-complex tachycardia was likely aberrancy. Would not continue amiodarone routinely, since he has previously demonstrated an intolerance to taking this medication long-term. Also, would not automatically increase his metoprolol, since he demonstrated brief bradycardia today and has shown bradycardia in the past (such as during a February 2023 hospitalization for encephalopathy), however would increase metoprolol if he has any recurrent atrial dysrhythmias. Since he has remained in sinus rhythm after his acute pain/hyperadrenergic state resolved and his magnesium was replaced, would simply recommend he be placed on a magnesium supplement (such as Slow-Mag 64 mg twice daily) upon discharge. Fortunately, at recent baseline he has been active with no suggestion of ongoing myocardial ischemia and he tolerated the tachydysrhythmia's today without symptoms or enzyme elevation. No change in his usual cardiac regimen. Dr. Dupont will be rounding tomorrow, please contact him if there are further questions. If there are difficulties scheduling the patient with Dr. Small for near-term follow-up (he may be unavailable), I would be glad to see the patient short-term for hospital follow-up. History of Present Illness Reason for Consultation: NSVT Requesting Physician: Dax Worrell MD Attending Physician: Dax Worrell MD History of Present Illness 77-year-old man with CAD (three-vessel CABG 2019), DM, paroxysmal atrial fibrillation (metoprolol/apixaban), left hemiparesis status post CVA 2020, CRI (creatinine 1.6), PAD (INSURANCE INVESTIGATOR popliteal 2017), and HTN who was admitted from [place] care today with severe abdominal pain and found to have pancreatitis, during his observation in the ER he had multiple atrial dysrhythmias and a 6 beat run of wide-complex tachycardia and received amiodarone. Review of his rhythm strips shows sinus tachycardia, episodes of atrial flutter with ventricular rate 150 bpm, brief episodes of atrial fibrillation, brief sinus bradycardia (down to 30 bpm), and one 6 beat wide-complex tachycardia at rates similar to adjacent atrial flutter rates, suggesting that this was actually aberrantly conducted atrial flutter rather than ventricular tachycardia. Aside from this one 6 beat run, there has been no significant ventricular ectopy and no evidence of recurrent wide-complex tachycardia. Since initial treatment with IV amiodarone (since discontinued) he has not had any recurrent dysrhythmias throughout today and remains in sinus rhythm. Of note, patient's potassium was 3.6 and magnesium 1.4. At recent baseline, he was able to go up and down stairs without difficulty and has not noted any chest pain, dyspnea exertion, palpitations, lightheadedness, presyncope, or syncope. During his dysrhythmias in the ER, he noted no chest pain, palpitations, or other symptoms. His only prior episode of atrial dysrhythmia was within 1 month after his CABG in 2019, he was on amiodarone for about 7 months but this was stopped due to vertigo type symptoms. Patient is followed by Dr. Small, however in reviewing the records it does not appear that he has been seen in the office for a cardiology visit since mid 2021. He has been on low-dose metoprolol (25 mg daily). At the time of my evaluation this evening, he had no somatic complaints. He was no longer noting abdominal pain. Allergies Allergy/AdvReac Type Severity Reaction Status Date / Time Corticosteroids Allergy Unknown Unknown Verified 02/18/23 18:57 (Glucocorticoids) niacin Allergy Unknown ARTHRALGIAS Verified 02/18/23 18:57 FROM ADVICOR telithromycin Allergy Unknown ARTHRALGIAS Verified 02/18/23 18:57 FROM ADVICOR atorvastatin AdvReac Intermediate Muscle Pain Verified 02/18/23 18:57 lovastatin AdvReac Intermediate ARTHRALGIAS Verified 02/18/23 18:57 FROM ADVICOR Dttaxga-[id number]-AvW Reductase AdvReac Intermediate Muscle Pain Verified 02/18/23 18:57 Inhibitor [Tefdato-Puu-Kkm Reductase Inhibitor] Home Medications Medication Instructions Recorded Confirmed Type multivitamin with minerals 1 tab PO DAILY 03/16/21 05/20/23 History pantoprazole 20 mg tablet,delayed 20 mg PO DAILY 02/18/23 05/20/23 History release acetaminophen 500 mg tablet 1,000 mg PO Q8H PRN pain #30 tabs 02/26/23 05/20/23 Rx (Tylenol Extra Strength) amlodipine 2.5 mg tablet 2.5 mg PO DAILY #30 tabs 02/26/23 05/20/23 Rx apixaban 5 mg tablet (Eliquis) 5 mg PO BID #30 tabs 02/26/23 05/20/23 Rx clopidogrel 75 mg tablet 75 mg PO QAM #30 tabs 02/26/23 05/20/23 Rx ezetimibe 10 mg tablet 10 mg PO QAM #30 tabs 02/26/23 05/20/23 Rx lisinopril 10 mg tablet 10 mg PO DAILY #30 tabs 02/26/23 05/20/23 Rx metoprolol succinate 25 mg 25 mg PO HS #30 tabs 02/26/23 05/20/23 Rx tablet,extended release 24 hr ropinirole 0.5 mg tablet 0.5 mg PO HS #30 tabs 02/26/23 05/20/23 Rx loratadine 10 mg tablet 10 mg PO DAILY 05/20/23 05/20/23 History tamsulosin 0.4 mg capsule 0.4 mg PO QAM 05/20/23 05/20/23 History Patient History Medical History (Updated 05/20/23 @ 19:22 by Scar Strauss MD) Ambulatory dysfunction Atrial fibrillation CAD (coronary artery disease) CHI (closed head injury) CKD (chronic kidney disease) stage 3, GFR 30-59 ml/min CVA (cerebral vascular accident) (2020) Depression Diaphragmatic paralysis Diarrhea DM (diabetes mellitus) Elevated lipase Fall Generalized weakness GERD (gastroesophageal reflux disease) GERD (gastroesophageal reflux disease) History of stroke HTN (hypertension) HTN (hypertension) Hypercholesteremia Hypertriglyceridemia Hypotension Left rib fracture PAF (paroxysmal atrial fibrillation) Physical deconditioning Postoperative atrial fibrillation Presence of arterial stent L leg, unable to relate exact location. Pressure ulcer of right buttock Restless leg syndrome Stroke TIA (transient ischemic attack) Type II diabetes mellitus Surgical History H/O knee surgery stent behind left knee 2017 H/O vasectomy History of angioplasty of peripheral vessel LLE angiogram with INSURANCE INVESTIGATOR popliteal 05/23/2018 Hx of colonoscopy 2017 S/P CABG x 3 Family History Grandfather Colorectal cancer Mother Diabetes Hypertension Brother Stroke Social History Smoking Status: Former smoker Tobacco Type: Cigarettes Second Hand Exposure: No; Do You Dip or Chew Tobacco: Yes; Hx Alcohol Use: Yes Alcohol type: beer Hx Substance Use: No Preferred Language: Syriac Communication Ability: Effective Communication Ability Comment: Aphasia. Lawyer Required: No Beliefs That Will Affect Care: None marital status: Single Current Living Situation: Residential Current Living Situation Comment: please see nurses notes current occupational status: retired Feels Safe at Home: Yes Assistive Devices: Cane and Walker Physical Exam Physical Exam: No distress. Afebrile. Normotensive. Pulse 72 bpm and regular. Skin: no ecchymoses or generalized lesions. HEENT: unremarkable. Neck: JVP at the clavicle at 90 degrees, no carotid bruits. Lungs: clear. Cardiac: regular rhythm, normal S1-2, no murmur. Abdomen: benign. Extremities: no edema, pulses intact. Neurologic: normal affect and conversation, nonfocal. Results & Data Laboratory Results Potassium and magnesium as noted in HPI. BUN 18, creatinine 1.62. WBC 11.7, normal hemoglobin and platelet count. Initial troponin normal. Diagnostic Findings Initial ECG showed sinus tachycardia at 135 bpm with incomplete right bundle branch block, similar to an ECG from 02/18/2023. Second ECG today showed atrial fibrillation with ventricular rate of 106 bpm, possible old anteroseptal infarct (likely lead placement), heart rate had decreased by 29 bpm from earlier ECG. desk monitor since that time has shown sinus rhythm at 70 bpm. Chest x-ray showed mild interstitial thickening. PG Care Time/CCT Total # of Minutes Spent Total Time Spent with Patient: Total time spent is greater than 50% in coordination of care (as documented) at patient's floor/unit and/or counseling patient: Coding Level of Care Code 20279 INT INP/OBS CARE 3/75MIN Diagnoses Atrial flutter with rapid ventricular response I48.92 Paroxysmal atrial fibrillation with rapid ventricular response I48.0 Wide-complex tachycardia R00.0 Acute pancreatitis K85.90 CAD (coronary artery disease) I25.110 Associated angina: with unstable angina Coronary Disease-Associated Artery/Lesion type: [place] artery [place] vs. transplanted heart: [place] heart S/P CABG x 3 Z95.1 Sinus bradycardia R00.1 Anticoagulated Z79.01 (5) CAD (coronary artery disease) Associated angina: with unstable angina Coronary Disease-Associated Artery/Lesion type: [place] artery [place] vs. transplanted heart: [place] heart Qualified Code(s): I25.110 - Atherosclerotic heart disease of [place] coronary artery with unstable angina pectoris
[2023-05-20] MEDS: PANTOprazole 40 MG in SYRINGE 0 ML IV SCH (21:19)
[2023-05-20] MEDS: rOPINIRole HCL 0.25 MG TABLET PO SCH (21:37)
[2023-05-20] MEDS: METOPROLOL SUCC 25MG EXT REL TAB PO SCH (21:38)
[2023-05-21] MEDS: INSULIN ASPART PER UNIT CHARGE SC SCH ×4 (00:23→17:47)
[2023-05-21] MEDS: PIPERACILLIN/TAZOBACTAM 4.5 GM in DEXTROSE 5% 100 ML IV SCH ×3 (04:04→19:38)
[2023-05-21 07:37] LABS: Basophils # (auto) 0.03 K/uL (0.00-0.20); Basophils % (auto) 0.3 %; Eosinophils # (auto) 0.11 K/uL (0.00-0.50); Eosinophils % (auto) 1.2 %; Hematocrit (blood only) 32.3 % (42.0-52.0); Hemoglobin 11.4 g/dl (14.0-18.0); Immature Granulocytes # (auto) 0.03 K/uL (0.01-0.20); Immature Granulocytes % (auto) 0.3 %; Lymphocytes # (auto) 0.96 K/uL (1.20-3.40); Lymphocytes % (auto) 10.4 %; Mean Corpuscular Hemoglobin 31.6 pg (25.0-34.0); Mean Corpuscular Hgb Conc 35.3 g/dL (32.0-36.0); Mean Corpuscular Volume 89.5 fL (80.0-100.0); Mean Platelet Volume 12.1 fL (9.4-12.4); Monocytes # (auto) 0.48 K/uL (0.11-0.59); Monocytes % (auto) 5.2 %; Neutrophils # (auto) 7.62 K/uL (1.40-6.50); Neutrophils % (auto) 82.6 %; Platelet Count 109 K/uL (130-400); RDW Coefficient of Variation 13.1 % (11.5-14.5); RDW Standard Deviation 42.9 fL (36.4-46.3); Red Blood Count 3.61 M/uL (4.70-6.10); White Blood Count 9.23 K/ul (4.8-10.8)
[2023-05-21 08:00] LABS: Albumin Globulin Ratio 1.4 (0.9-2); Albumin Level 3.2 gm/dl (3.4-5.0); BUN Creatinine Ratio 10.8 (10-20); Bilirubin Direct 0.5 mg/dl (0-0.2); Bilirubin,Total 1.7 mg/dl (0.2-1.0); Calcium 8.3 mg/dl (8.6-10.3); Creatinine Clr Calc Pharmacy 35.8 ml/min; Est GFR (African American) 45.1 ml/min; Est GFR (Non-African American) 38.9 ml/min; Globulin 2.3 gm/dl (2.5-4.0); Potassium 3.9 mmol/L (3.5-5.1); Total Protein 5.5 gm/dl (6.0-8.3)
[2023-05-21] MEDS: CLOPIDOGREL BISULFATE 75 MG TAB PO SCH (08:24)
[2023-05-21] MEDS: TAMSULOSIN HCL 0.4 MG CAP PO SCH (08:24)
[2023-05-21] MEDS: APIXABAN 5 MG TABLET PO SCH ×2 (08:24→21:35)
[2023-05-21] MEDS: PANTOprazole 40 MG in SYRINGE 0 ML IV SCH ×2 (08:24→21:34)
[2023-05-21] MEDS: amLODIPine BESYLATE 5 MG TAB PO SCH (08:24)
[2023-05-21] MEDS: LORATADINE 10 MG TAB PO SCH (08:24)
[2023-05-21] MEDS: EZETIMIBE 10 MG TAB PO SCH (08:25)
[2023-05-21] MEDS: lisinopril 10 MG TAB PO SCH (08:25)
[2023-05-21] MEDS: SODIUM CHLORIDE 0.9% 1000ML 1,000 ML IV SCH ×2 (12:13→22:41)
--- NOTE | 2023-05-21 14:24 | Cardiology Progress Note ---
Date of Service May 21, 2023 Assessment & Plan (1) Paroxysmal atrial fibrillation with rapid ventricular response: (2) Wide-complex tachycardia: (3) CAD (coronary artery disease): Plan 1. Paroxysmal atrial arrhythmias: These occurred in the setting of presentation for pancreatitis, he had electrolyte abnormalities which are being corrected. He has had no further episodes since yesterday. He does have a long history of atrial arrhythmias however and is on aspirin and clopidogrel. I would continue these medications to minimize the risk of future stroke. 2. Wide-complex tachycardia: He had brief episodes of wide-complex tachycardia, this may be aberrancy but I would not alter therapy based on them. 3. Coronary disease: He has a history of coronary disease and bypass surgery, he does not have symptoms to suggest progression. I would continue his cholesterol medication (Zetia) as well as clopidogrel. His left ventricular ejection fraction was normal in December of this year. Admission and Anticipated Discharge Date Admission Date: May 20, 2023 Subjective Chart reviewed and patient examined. He presented with symptoms primarily from abdominal discomfort, he did not have a lot of palpitations and denies presyncope or syncope. He has had none of these symptoms since admission. Physical Exam Physical Exam: Constitutional: Alert, cooperative and in no distress. Pulmonary: Clear to auscultation bilaterally. Cardiac: Regular rhythm with no murmur, gallop or rub. Abdomen: Soft, some tenderness, with reduced bowel sounds. Extremities: No edema. Skin: No rash, ecchymoses or petechiae. Results & Data Vital Signs (Past 12 Hours) Vital Signs Temp Pulse Pulse Pulse Resp BP Pulse Ox 05/21/23 12:22 37.4 C 80 18 122/70 93 05/21/23 07:35 71 05/21/23 07:18 36.7 C 71 18 121/72 95 05/21/23 03:33 36.4 C L 80 20 119/71 92 O2 Del Method 05/21/23 12:22 Room Air 05/21/23 07:35 05/21/23 07:18 Room Air 05/21/23 03:33 Room Air Laboratory Results Cardiac Enzymes 05/21/23 Range/Units 06:44 AST 29 (13-39) U/L CBC 05/21/23 Range/Units 06:44 WBC 9.23 (4.8-10.8) K/ul RBC 3.61 L (4.70-6.10) M/uL Hgb 11.4 L D (14.0-18.0) g/dl Hct 32.3 L (42.0-52.0) % Plt Count 109 L (130-400) K/uL Neut # (Auto) 7.62 H (1.40-6.50) K/uL Lymph # (Auto) 0.96 L (1.20-3.40) K/uL [place] # (Auto) 0.48 (0.11-0.59) K/uL Eos # (Auto) 0.11 (0.00-0.50) K/uL Baso # (Auto) 0.03 (0.00-0.20) K/uL Comprehensive Metabolic Panel 05/21/23 Range/Units 06:44 Sodium 136 (136-145) mmol/L Potassium 3.9 (3.5-5.1) mmol/L Chloride 108 H (98-107) mmol/L Carbon Dioxide 22 (21-32) mmol/L BUN 18 (6-23) mg/dl Creatinine 1.67 H (0.6-1.4) mg/dl Glucose 129 H (70-99(Fasting)) mg/dl Calcium 8.3 L (8.6-10.3) mg/dl Direct Bilirubin 0.5 H (0-0.2) mg/dl AST 29 (13-39) U/L ALT 40 (7-52) U/L Alkaline Phosphatase 58 (34-104) U/L Total Protein 5.5 L D (6.0-8.3) gm/dl Albumin 3.2 L (3.4-5.0) gm/dl Intake and Output 05/20/23 05/21/23 05/21/23 22:59 06:59 14:59 Intake Total 1220 / 3660 2120 / 3660 120 / 120 Output Total 200 / 450 250 / 450 Balance 1020 / 3210 1870 / 3210 120 / 120 Intake: IV 1220 / 3660 2120 / 3660 120 / 120 Lactated Ringer's 1,000 ml @ 1000 / 3000 2000 / 3000 150 mls/hr IV .Q6H40M RUPINDER Rx#: [id number] Magnesium Sulfate / D5w 1 gm In 100 / 200 100 ml @ 50 mls/hr IV Q2H RUPINDER Rx#:[id number] Piperacillin/Tazobactam 4.5 gm 120 / 240 120 / 240 120 / 120 In Dextrose 5% 100 ml @ 30 mls/ hr IV Q8H RUPINDER Rx#:[id number] Output: Urine Amount (Catheter) 200 / 450 250 / 450 External 200 / 450 250 / 450 Other: # Unmeasured Voids 1 Weight 78.6 kg Weight Measurement Method Built in [facility] Diagnostic Findings Telemetry: Sinus rhythm with no significant arrhythmias since yesterday. PG Care Time/CCT Total # of Minutes Spent Total Time Spent with Patient: Total time spent is greater than 50% in coordination of care (as documented) at patient's floor/unit and/or counseling patient: Coding Level of Care Code 08767 SUB INP/OBS CARE 2/35MIN Diagnoses Paroxysmal atrial fibrillation with rapid ventricular response I48.0 Wide-complex tachycardia R00.0 CAD (coronary artery disease) I25.110 Associated angina: with unstable angina Coronary Disease-Associated Artery/Lesion type: [place] artery [place] vs. transplanted heart: [place] heart (3) CAD (coronary artery disease) Associated angina: with unstable angina Coronary Disease-Associated Artery/Lesion type: [place] artery [place] vs. transplanted heart: [place] heart Qualified Code(s): I25.110 - Atherosclerotic heart disease of [place] coronary artery with unstable angina pectoris
--- NOTE | 2023-05-21 16:08 | Hospitalist Progress Note ---
Date of Service May 21, 2023 Assessment & Plan (1) Acute pancreatitis: Plan: Improving. Lipase is down to 1041. IV fluids taper down. Will allow ice chips. Hopefully clear liquids can start tomorrow, May 22. He is a nondrinker. Triglyceride level only 205. Serial lab studies. CT scan obtained on admission negative for cholelithiasis or choledocholithiasis. (2) Nonsustained ventricular tachycardia: Plan: Past history of NSVT. Cardiology consultation appreciated. Amiodarone drip has been discontinued. Telemetry. Will correct electrolyte abnormalities. (3) CAD (coronary artery disease): Plan: History of. s/p CABG x 3V with stents. No chest pain. Stable. 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 Stable. Continue current medical management with Plavix, Eliquis, Zetia (5) GERD (gastroesophageal reflux disease): Plan: Stable. Continue Protonix therapy (6) HTN (hypertension): Plan: Elevated blood pressure in the ER. Now improved. Pain control. Continue Amlodipine, Lisinopril and Metoprolol (7) DM (diabetes mellitus): Plan: Diet controlled. Last TcqQ9C=4.4 on 04/02/23. Sliding scale coverage as needed. Plan Anticipate eventual return back to [facility] early next week Admission and Anticipated Discharge Date Admission Date: May 20, 2023 Subjective Alert and oriented. He is feeling somewhat better and is hungry. Lipase has improved but still too high to start oral feedings. Hopefully we can start clear liquids tomorrow. IV fluids have been tapered down. Creatinine is stable at 1.6 and eventually will return to baseline. Triglyceride level was only 205 so this was not the etiology of the pancreatitis. He is a nondrinker also. Glucose remains stable. Review of Systems Review of Systems: Constitutional-no fever or chills ENT-no blurred vision, no double vision, no epistaxis, no sore throat Respiratory-no cough, no wheezing, no shortness of breath Cardiac- no chest pain, no syncope. He states he can tell when he is in ventricular tachycardia GI-mild upper abdominal pain. Nausea and vomiting have resolved. No hematemesis. No melena or hematochezia -no urinary retention, no urinary incontinence, no dysuria, no hematuria Musculoskeletal-no joint pain, no muscle tenderness Skin-no bruising, no rashes, no pruritus Neuro-no isolated weakness, no paresthesia, no weakness Psych-no depression, no anxiety Physical Exam Physical Exam: General-alert and oriented x3, no fevers, no chills HEENT-head atraumatic and normocephalic, pupils equal and reactive to light, extraocular muscles intact Neck-no lymphadenopathy or thyromegaly, trachea midline Chest-clear to auscultation percussion. No rales wheezing or rhonchi Cardiac-irregular rhythm. Controlled rate. Normal S1 and S2. Abdomen-active bowel sounds. Mild epigastric tenderness. No masses. No rebound or guarding Extremities-no cyanosis, clubbing, or edema Neuro-cranial nerves II through XII intact, motor and sensory function within normal limits, strength symmetrical , no focal deficits Psych-normal affect, normal mood Results & Data Results & Data Vital Signs (Past 12 Hours) Vital Signs Temp Pulse Pulse Pulse Resp BP Pulse Ox 05/21/23 14:57 36.5 C 71 18 118/71 93 05/21/23 12:22 37.4 C 80 18 122/70 93 05/21/23 07:35 71 05/21/23 07:18 36.7 C 71 18 121/72 95 O2 Del Method 05/21/23 14:57 Room Air 05/21/23 12:22 Room Air 05/21/23 07:35 05/21/23 07:18 Room Air Laboratory Results 05/21/23 06:44 05/21/23 06:44 PG Care Time/CCT Total # of Minutes Spent Total Time Spent with Patient: Total time spent is greater than 50% in coordination of care (as documented) at patient's floor/unit and/or counseling patient: Coding Level of Care Code 88977 SUB INP/OBS CARE 3/50MIN Diagnoses Acute pancreatitis K85.90 Nonsustained ventricular tachycardia I47.29 CAD (coronary artery disease) I25.110 Associated angina: with unstable angina Coronary Disease-Associated Artery/Lesion type: [place] artery [place] vs. transplanted heart: [place] heart CVA (cerebral vascular accident) I63.9 GERD (gastroesophageal reflux disease) K21.9 HTN (hypertension) I10 Hypertension type: essential hypertension DM (diabetes mellitus) E11.9 Diabetes mellitus type: type 2 Diabetes mellitus senior living insulin use: without senior living use Diabetes mellitus complication status: without complication (3) CAD (coronary artery disease) Associated angina: with unstable angina Coronary Disease-Associated Artery/Lesion type: [place] artery [place] vs. transplanted heart: [place] heart Qualified Code(s): I25.110 - Atherosclerotic heart disease of [place] coronary artery with unstable angina pectoris (6) HTN (hypertension) Hypertension type: essential hypertension Qualified Code(s): I10 - Essential (primary) hypertension (7) DM (diabetes mellitus) Diabetes mellitus type: type 2 Diabetes mellitus senior living insulin use: without terminal carman use Diabetes mellitus complication status: without complication Qualified Code(s): E11.9 - Type 2 diabetes mellitus without complications
[2023-05-21] MEDS: METOPROLOL SUCC 25MG EXT REL TAB PO SCH (21:34)
[2023-05-21] MEDS: rOPINIRole HCL 0.25 MG TABLET PO SCH (21:34)
[2023-05-22] MEDS: INSULIN ASPART PER UNIT CHARGE SC SCH ×6 (00:11→20:05)
[2023-05-22] MEDS: PIPERACILLIN/TAZOBACTAM 4.5 GM in DEXTROSE 5% 100 ML IV SCH (03:05)
[2023-05-22] MEDS: CLOPIDOGREL BISULFATE 75 MG TAB PO SCH (08:14)
[2023-05-22] MEDS: lisinopril 10 MG TAB PO SCH (08:14)
[2023-05-22] MEDS: SODIUM CHLORIDE 0.9% 1000ML 1,000 ML IV SCH ×2 (08:14→20:00)
[2023-05-22] MEDS: EZETIMIBE 10 MG TAB PO SCH (08:14)
[2023-05-22] MEDS: LORATADINE 10 MG TAB PO SCH (08:14)
[2023-05-22] MEDS: TAMSULOSIN HCL 0.4 MG CAP PO SCH (08:14)
[2023-05-22] MEDS: APIXABAN 5 MG TABLET PO SCH ×2 (08:14→20:04)
[2023-05-22] MEDS: amLODIPine BESYLATE 5 MG TAB PO SCH (08:15)
[2023-05-22] MEDS: PANTOprazole 40 MG in SYRINGE 0 ML IV SCH ×2 (08:15→20:04)
[2023-05-22 10:26] LABS: Basophils # (auto) 0.03 K/uL (0.00-0.20); Basophils % (auto) 0.5 %; Eosinophils # (auto) 0.12 K/uL (0.00-0.50); Hematocrit (blood only) 35.9 % (42.0-52.0); Hemoglobin 12.6 g/dl (14.0-18.0); Immature Granulocytes # (auto) 0.02 K/uL (0.01-0.20); Immature Granulocytes % (auto) 0.3 %; Lymphocytes # (auto) 0.57 K/uL (1.20-3.40); Lymphocytes % (auto) 9.4 %; Mean Corpuscular Hemoglobin 31.7 pg (25.0-34.0); Mean Corpuscular Hgb Conc 35.1 g/dL (32.0-36.0); Mean Corpuscular Volume 90.2 fL (80.0-100.0); Mean Platelet Volume 11.3 fL (9.4-12.4); Monocytes # (auto) 0.36 K/uL (0.11-0.59); Monocytes % (auto) 5.9 %; Neutrophils # (auto) 4.99 K/uL (1.40-6.50); Neutrophils % (auto) 81.9 %; Platelet Count 123 K/uL (130-400); RDW Coefficient of Variation 12.3 % (11.5-14.5); RDW Standard Deviation 40.6 fL (36.4-46.3); Red Blood Count 3.98 M/uL (4.70-6.10); White Blood Count 6.09 K/ul (4.8-10.8)
[2023-05-22 10:47] LABS: Albumin Globulin Ratio 1.3 (0.9-2); Albumin Level 3.5 gm/dl (3.4-5.0); BUN Creatinine Ratio 10.3 (10-20); Bilirubin,Total 1.4 mg/dl (0.2-1.0); Calcium 8.6 mg/dl (8.6-10.3); Est GFR (African American) 57.8 ml/min; Est GFR (Non-African American) 49.8 ml/min; Globulin 2.6 gm/dl (2.5-4.0); Potassium 4.2 mmol/L (3.5-5.1); Total Protein 6.1 gm/dl (6.0-8.3)
[2023-05-22] MEDS ORDERED: Nursing to Pharmacy Communication SCH (12:15)
--- NOTE | 2023-05-22 13:55 | Hospitalist Progress Note ---
Date of Service May 22, 2023 Assessment & Plan (1) Acute pancreatitis: Plan: Improving. Lipase is down to 443. IV fluids tapered down. Clear liquids ordered. He is a nondrinker. Triglyceride level only 205. Serial lab studies. CT scan obtained on admission negative for cholelithiasis or choledocholithiasis. (2) Nonsustained ventricular tachycardia: Plan: Past history of NSVT. Cardiology consultation appreciated. Amiodarone drip has been discontinued. Telemetry. Will correct electrolyte abnormalities. (3) Dyspnea: Plan: Portable chest x-ray pending. Not hypoxic (4) CAD (coronary artery disease): Plan: History of. s/p CABG x 3V with stents. No chest pain. Stable. Continue current medical management (5) CVA (cerebral vascular accident): Plan: With residual left sided hemiparesis. Stable. Continue current medical management with Plavix, Eliquis, Zetia (6) GERD (gastroesophageal reflux disease): Plan: Stable. Continue Protonix therapy (7) HTN (hypertension): Plan: Elevated blood pressure in the ER. Now improved. Pain control. Continue Amlodipine, Lisinopril and Metoprolol (8) DM (diabetes mellitus): Plan: Diet controlled. Last ZheQ9X=0.4 on 04/02/23. Sliding scale coverage as needed. Plan Anticipate eventual return back to [facility] early next week Admission and Anticipated Discharge Date Admission Date: May 20, 2023 Subjective Alert and oriented. Complaining of dyspnea. He has received quite a bit of intravenous fluid since admission. Portable chest x-ray is pending. He is not hypoxic. Lipase is down to 443. Clear liquids have been started. IV fluids taper down. Creatinine improved to 1.6. Triglyceride level was only 205 Review of Systems Review of Systems: Constitutional-no fever or chills ENT-no blurred vision, no double vision, no epistaxis, no sore throat Respiratory-no cough, no wheezing, no shortness of breath Cardiac- no chest pain, no syncope. He states he can tell when he is in ventricular tachycardia GI-mild upper abdominal pain. Nausea and vomiting have resolved. No hematemesis. No melena or hematochezia -no urinary retention, no urinary incontinence, no dysuria, no hematuria Musculoskeletal-no joint pain, no muscle tenderness Skin-no bruising, no rashes, no pruritus Neuro-no isolated weakness, no paresthesia, no weakness Psych-no depression, no anxiety Physical Exam Physical Exam: General-alert and oriented x3, no fevers, no chills HEENT-head atraumatic and normocephalic, pupils equal and reactive to light, extraocular muscles intact Neck-no lymphadenopathy or thyromegaly, trachea midline Chest-clear to auscultation percussion. No rales wheezing or rhonchi Cardiac-irregular rhythm. Controlled rate. Normal S1 and S2. Abdomen-active bowel sounds. Mild epigastric tenderness. No masses. No rebou nd or guarding Extremities-no cyanosis, clubbing, or edema Neuro-cranial nerves II through XII intact, motor and sensory function within normal limits, strength symmetrical , no focal deficits Psych-normal affect, normal mood Results & Data Results & Data Vital Signs (Past 12 Hours) Vital Signs Temp Pulse Pulse Resp BP Pulse Ox O2 Del Method 05/22/23 12:16 37.0 C 87 18 155/84 H 95 Room Air 05/22/23 07:41 36.6 C 70 19 133/69 95 Room Air 05/22/23 07:15 82 05/22/23 02:34 36.5 C 84 22 144/82 H 93 Room Air Laboratory Results 05/22/23 09:42 05/22/23 09:42 PG Care Time/CCT Total # of Minutes Spent Total Time Spent with Patient: Total time spent is greater than 50% in coordination of care (as documented) at patient's floor/unit and/or counseling patient: Coding Level of Care Code 72861 SUB INP/OBS CARE 3/50MIN Diagnoses Acute pancreatitis K85.90 Nonsustained ventricular tachycardia I47.29 Dyspnea R06.00 CAD (coronary artery disease) I25.110 Associated angina: with unstable angina Coronary Disease-Associated Artery/Lesion type: [place] artery [place] vs. 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 transplanted heart: [place] heart Qualified Code(s): I25.110 - Atherosclerotic heart disease of [place] coronary artery with unstable angina pectoris (7) HTN (hypertension) Hypertension type: essential hypertension Qualified Code(s): I10 - Essential (primary) hypertension (8) DM (diabetes mellitus) Diabetes mellitus type: type 2 Diabetes mellitus halfway insulin use: without termite exterminator helper use Diabetes mellitus complication status: without complication Qualified Code(s): E11.9 - Type 2 diabetes mellitus without complications
--- NOTE | 2023-05-22 14:58 | XRay Report ---
XR chest 1V portable CLINICAL HISTORY: dyspnea COMPARISON STUDY: Chest CT March 16, 2021. Chest radiograph May 20, 2023. FINDINGS: There are median sternotomy wires and mediastinal surgical clips. No pneumothorax or pleura l effusion is present. There is no consolidation. No evidence for pulmonary edema. Calcified granulom a within the left upper lobe is incidentally noted. IMPRESSION: No acute cardiopulmonary findings. ACT 112: Negative or not required by law. Electronically signed by: Ronny Sanderson M.D. 05/22/2023 2:56 PM
[2023-05-22] MEDS: METOPROLOL SUCC 25MG EXT REL TAB PO SCH (20:05)
[2023-05-22] MEDS: rOPINIRole HCL 0.25 MG TABLET PO SCH (21:15)
[2023-05-23] MEDS: lisinopril 10 MG TAB PO SCH (08:09)
[2023-05-23] MEDS: TAMSULOSIN HCL 0.4 MG CAP PO SCH (08:10)
[2023-05-23] MEDS: amLODIPine BESYLATE 5 MG TAB PO SCH (08:10)
[2023-05-23] MEDS: LORATADINE 10 MG TAB PO SCH (08:10)
[2023-05-23] MEDS: PANTOprazole 40 MG in SYRINGE 0 ML IV SCH ×2 (08:10→20:20)
[2023-05-23] MEDS: EZETIMIBE 10 MG TAB PO SCH (08:10)
[2023-05-23] MEDS: CLOPIDOGREL BISULFATE 75 MG TAB PO SCH (08:10)
[2023-05-23] MEDS: APIXABAN 5 MG TABLET PO SCH ×2 (08:10→20:20)
[2023-05-23] MEDS: SODIUM CHLORIDE 0.9% 1000ML 1,000 ML IV SCH ×2 (08:13→12:48)
[2023-05-23 08:22] LABS: Basophils # (auto) 0.03 K/uL (0.00-0.20); Basophils % (auto) 0.5 %; Eosinophils # (auto) 0.09 K/uL (0.00-0.50); Eosinophils % (auto) 1.5 %; Hematocrit (blood only) 37.5 % (42.0-52.0); Hemoglobin 13.1 g/dl (14.0-18.0); Immature Granulocytes # (auto) 0.05 K/uL (0.01-0.20); Immature Granulocytes % (auto) 0.8 %; Lymphocytes # (auto) 0.74 K/uL (1.20-3.40); Lymphocytes % (auto) 12.4 %; Mean Corpuscular Hemoglobin 30.8 pg (25.0-34.0); Mean Corpuscular Hgb Conc 34.9 g/dL (32.0-36.0); Mean Corpuscular Volume 88.2 fL (80.0-100.0); Mean Platelet Volume 10.6 fL (9.4-12.4); Monocytes # (auto) 0.49 K/uL (0.11-0.59); Monocytes % (auto) 8.2 %; Neutrophils # (auto) 4.59 K/uL (1.40-6.50); Neutrophils % (auto) 76.6 %; Platelet Count 147 K/uL (130-400); RDW Coefficient of Variation 12.3 % (11.5-14.5); RDW Standard Deviation 39.2 fL (36.4-46.3); Red Blood Count 4.25 M/uL (4.70-6.10); White Blood Count 5.99 K/ul (4.8-10.8)
[2023-05-23] MEDS: INSULIN ASPART PER UNIT CHARGE SC SCH ×4 (08:23→20:23)
[2023-05-23 08:38] LABS: Bilirubin,Total 0.8 mg/dl (0.2-1.0)
[2023-05-23 08:39] LABS: Albumin Globulin Ratio 1.3 (0.9-2); Albumin Level 3.6 gm/dl (3.4-5.0); BUN Creatinine Ratio 9.9 (10-20); Calcium 8.9 mg/dl (8.6-10.3); Creatinine Clr Calc Pharmacy 49.5 ml/min; Est GFR (African American) 66.5 ml/min; Est GFR (Non-African American) 57.4 ml/min; Globulin 2.8 gm/dl (2.5-4.0); Potassium 4.1 mmol/L (3.5-5.1); Total Protein 6.4 gm/dl (6.0-8.3)
--- NOTE | 2023-05-23 13:51 | Hospitalist Progress Note ---
Date of Service May 23, 2023 Assessment & Plan (1) Acute pancreatitis: Plan: Improving. Lipase is down now to 210. IV fluids tapered down further. Clear liquids advance to full liquids. He is a nondrinker. Triglyceride level only 205. Serial lab studies. CT scan obtained on admission negative for cholelithiasis or choledocholithiasis. (2) Nonsustained ventricular tachycardia: Plan: Past history of NSVT. Cardiology consultation appreciated. Amiodarone drip has been discontinued. Telemetry. Will correct electrolyte abnormalities. (3) Delirium: Plan: Hospital-acquired. Supportive care (4) Dyspnea: Plan: Portable chest x-ray negative for CHF or acute dyspnea. He is on room air. (5) CAD (coronary artery disease): Plan: History of. s/p CABG x 3V with stents. No chest pain. Stable. Continue current medical management (6) CVA (cerebral vascular accident): Plan: With residual left sided hemiparesis. Stable. Continue current medical management with Plavix, Eliquis, Zetia (7) GERD (gastroesophageal reflux disease): Plan: Stable. Continue Protonix therapy (8) HTN (hypertension): Plan: Elevated blood pressure in the ER. Now improved. Pain control. Continue Amlodipine, Lisinopril and Metoprolol (9) DM (diabetes mellitus): Plan: Diet controlled. Last MclN5P=2.4 on 04/02/23. Sliding scale coverage as needed. Plan Hopeful discharge back to [facility] tomorrow, May 24 Admission and Anticipated Discharge Date Admission Date: May 20, 2023 Subjective Alert. He has developed hospital acquired delirium though. Hopefully this will resolve soon. He is feeling better however. Lipase is nearly normalized down to 210. Creatinine normalized to 1.2. Diet advanced to full liquids. IV fluids taper down further. Hopefully he can return to [facility] tomorrow, May 24 Review of Systems Review of Systems: Constitutional-no fever or chills ENT-no blurred vision, no double vision, no epistaxis, no sore throat Respiratory-no cough, no wheezing, no shortness of breath Cardiac- no chest pain, no syncope. He states he can tell when he is in ventricular tachycardia GI-mild upper abdominal pain. Nausea and vomiting have resolved. No hematemesis. No melena or hematochezia -no urinary retention, no urinary incontinence, no dysuria, no hematuria Musculoskeletal-no joint pain, no muscle tenderness Skin-no bruising, no rashes, no pruritus Neuro-no isolated weakness, no paresthesia, no weakness Psych-no depression, no anxiety Physical Exam Physical Exam: General-alert and oriented x3, no fevers, no chills HEENT-head atraumatic and normocephalic, pupils equal and reactive to light, e xtraocular muscles intact Neck-no lymphadenopathy or thyromegaly, trachea midline Chest-clear to auscultation percussion. No rales wheezing or rhonchi Cardiac-irregular rhythm. Controlled rate. Normal S1 and S2. Abdomen-active bowel sounds. Mild epigastric tenderness. No masses. No rebound or guarding Extremities-no cyanosis, clubbing, or edema Neuro-cranial nerves II through XII intact, motor and sensory function within normal limits, strength symmetrical , no focal deficits Psych-normal affect, normal mood Results & Data Results & Data Vital Signs (Past 12 Hours) Vital Signs Temp Pulse Pulse Resp BP Pulse Ox O2 Del Method 05/23/23 11:33 36.8 C 82 19 134/80 94 Room Air 05/23/23 08:00 78 05/23/23 07:57 36.5 C 98 H 18 135/83 92 Room Air 05/23/23 02:24 36.6 C 80 20 131/69 96 Room Air Laboratory Results 05/23/23 08:01 05/23/23 08:01 PG Care Time/CCT Total # of Minutes Spent Total Time Spent with Patient: Total time spent is greater than 50% in coordination of care (as documented) at patient's floor/unit and/or counseling patient: Coding Level of Care Code 31848 SUB INP/OBS CARE 2/35MIN Diagnoses Acute pancreatitis K85.90 Nonsustained ventricular tachycardia I47.29 Delirium R41.0 Dyspnea R06.00 CAD (coronary artery disease) I25.110 Associated angina: with unstable angina Coronary Disease-Associated Artery/Lesion type: [place] artery [place] vs. 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 transplanted heart: [place] heart Qualified Code(s): I25.110 - Atherosclerotic heart disease of [place] coronary artery with unstable angina pectoris (8) HTN (hypertension) Hypertension type: essential hypertension Qualified Code(s): I10 - Essential (primary) hypertension (9) DM (diabetes mellitus) Diabetes mellitus type: type 2 Diabetes mellitus residential insulin use: without residential use Diabetes mellitus complication status: without complication Qualified Code(s): E11.9 - Type 2 diabetes mellitus without complications
[2023-05-23] MEDS: METOPROLOL SUCC 25MG EXT REL TAB PO SCH (20:20)
[2023-05-23] MEDS: rOPINIRole HCL 0.25 MG TABLET PO SCH (20:21)
[2023-05-24 06:36] LABS: Basophils # (auto) 0.04 K/uL (0.00-0.20); Basophils % (auto) 0.7 %; Eosinophils # (auto) 0.16 K/uL (0.00-0.50); Eosinophils % (auto) 2.9 %; Hematocrit (blood only) 37.2 % (42.0-52.0); Hemoglobin 12.9 g/dl (14.0-18.0); Immature Granulocytes # (auto) 0.04 K/uL (0.01-0.20); Immature Granulocytes % (auto) 0.7 %; Lymphocytes # (auto) 1.05 K/uL (1.20-3.40); Lymphocytes % (auto) 19.3 %; Mean Corpuscular Hemoglobin 31.1 pg (25.0-34.0); Mean Corpuscular Hgb Conc 34.7 g/dL (32.0-36.0); Mean Corpuscular Volume 89.6 fL (80.0-100.0); Mean Platelet Volume 10.6 fL (9.4-12.4); Neutrophils # (auto) 3.56 K/uL (1.40-6.50); Neutrophils % (auto) 65.4 %; Platelet Count 146 K/uL (130-400); RDW Coefficient of Variation 12.5 % (11.5-14.5); RDW Standard Deviation 40.9 fL (36.4-46.3); Red Blood Count 4.15 M/uL (4.70-6.10); White Blood Count 5.45 K/ul (4.8-10.8)
[2023-05-24 07:29] LABS: Albumin Globulin Ratio 1.3 (0.9-2); Albumin Level 3.5 gm/dl (3.4-5.0); BUN Creatinine Ratio 9.4 (10-20); Bilirubin,Total 0.7 mg/dl (0.2-1.0); Calcium 8.8 mg/dl (8.6-10.3); Creatinine Clr Calc Pharmacy 47.1 ml/min; Est GFR (African American) 62.7 ml/min; Est GFR (Non-African American) 54.1 ml/min; Globulin 2.6 gm/dl (2.5-4.0); Potassium 3.7 mmol/L (3.5-5.1); Total Protein 6.1 gm/dl (6.0-8.3)
[2023-05-24] MEDS: TAMSULOSIN HCL 0.4 MG CAP PO SCH (07:59)
[2023-05-24] MEDS: amLODIPine BESYLATE 5 MG TAB PO SCH (07:59)
[2023-05-24] MEDS: APIXABAN 5 MG TABLET PO SCH (07:59)
[2023-05-24] MEDS: EZETIMIBE 10 MG TAB PO SCH (07:59)
[2023-05-24] MEDS: CLOPIDOGREL BISULFATE 75 MG TAB PO SCH (08:01)
[2023-05-24] MEDS: lisinopril 10 MG TAB PO SCH (08:01)
[2023-05-24] MEDS: LORATADINE 10 MG TAB PO SCH (08:01)
[2023-05-24] MEDS: PANTOprazole 40 MG in SYRINGE 0 ML IV SCH (08:01)
[2023-05-24] MEDS: INSULIN ASPART PER UNIT CHARGE SC SCH ×2 (08:12→12:00)
[2023-05-24] MEDS: SODIUM CHLORIDE 0.9% 1000ML 1,000 ML IV SCH (10:20)
[2023-05-24 15:06] LABS: Base Excess VBG -4.2 mEq/L; HCO3 VBG 20 mmol/L; PCO2 VBG 34 mmHg (38-50); PO2 VBG 42 mmHg; pH VBG 7.38 (7.36-7.41)
--- NOTE | 2023-05-24 16:58 | Discharge Summary ---
Date of Service May 24, 2023 Admission HPI Per Admitting Provider Shailesh Antonio is a 77yo male with history of AF on Eliquis anticoagulation, prior CVA with left sided hemiparesis, DM, HTN, GERD and CAD s/p CABG x 3V with stents in place presenting from [facility] with severe abdominal pain that began 05/19/23 around 20:00. Also with nausea and vomiting. Patient endorses fever, chills, MERAZ and SOB as well. Patient denies chest pain or palpitations. No known history of prior laurent creatitis. In the ER he had an episode of VT and was given a bolus of Amiodarone with resolution ER Course: Amiodarone 150mg Fentanyl 50mcg Magnesium 1gm Zofran 4mg IV Zosyn 4.5gm NSS x 1L Discharge Data Allergies Allergy/AdvReac Type Severity Reaction Status Date / Time Corticosteroids Allergy Unknown Unknown Verified 02/18/23 18:57 (Glucocorticoids) niacin Allergy Unknown ARTHRALGIAS Verified 02/18/23 18:57 FROM ADVICOR telithromycin Allergy Unknown ARTHRALGIAS Verified 02/18/23 18:57 FROM ADVICOR atorvastatin AdvReac Intermediate Muscle Pain Verified 02/18/23 18:57 lovastatin AdvReac Intermediate ARTHRALGIAS Verified 02/18/23 18:57 FROM AD[facility]ICOR Dqjuvvn-[id number]-DgH Reductase AdvReac Intermediate Muscle Pain Verified 02/18/23 18:57 Inhibitor [Xtguhpy-Dkp-Xol Reductase Inhibitor] Consultations 05/20/23 05:59 ED Decision to Admit Stat 05/20/23 14:34 Consult Cardiology Routine Ordered Studies 05/20/23 03:41 CT Abd and Pelvis [CT abd pelvis IV con only] Stat Hospital Course (1) Acute pancreatitis: Improving. Lipase is down now to 210. IV fluids tapered down further. Clear liquids advance to full liquids. He is a nondrinker. Triglyceride level only 205. Serial lab studies. CT scan obtained on admission negative for cholelithiasis or choledocholithiasis. (2) Nonsustained ventricular tachycardia: Past history of NSVT. Cardiology consultation appreciated. Amiodarone drip has been discontinued. Telemetry. Will correct electrolyte abnormalities. (3) Delirium: Hospital-acquired. Supportive care (4) Dyspnea: Portable chest x-ray negative for CHF or acute dyspnea. He is on room air. (5) CAD (coronary artery disease): History of. s/p CABG x 3V with stents. No chest pain. Stable. Continue current medical management (6) CVA (cerebral vascular accident): With residual left sided hemiparesis. Stable. Continue current medical management with Plavix, Eliquis, Zetia (7) GERD (gastroesophageal reflux disease): Stable. Continue Protonix therapy (8) HTN (hypertension): Elevated blood pressure in the ER. Now improved. Pain control. Continue Amlodipine, Lisinopril and Metoprolol (9) DM (diabetes mellitus): Diet controlled. Last AsyJ3O=7.4 on 04/02/23. Sliding scale coverage as needed. Plan Hopeful discharge back to [facility] tomorrow, May 24 Discharge Plan Discharge Items Patient Disposition: Transfer Intermediate Fac Reason For Visit: ACUTE PANCREATITIS Discharge Diagnosis: acute pancreatitis Activity: Resume your previous activity Non-emergency contact: Primary Care Provider Call non-emergency contact if: you have any medication questions Follow-up/Referrals: Cal Lauren III, MD [Primary Care Provider] - Diet: Carb Consistent or DM2 and Low Fat Addtl Attending Provider Instructions: Recommend a low fat diet. Recommend followup in 2 weeks with PCP. Continue condom catheter Pending Studies at Discharge: No Stand-Alone Forms: My [facility] Skilled Items Patient informed of condition?: Yes DNR: No Discharge Level of Care: Skilled Communicable Disease: No Discharge Prognosis: Stable Lines: None Urinary Catheter: Yes Medications and DC Order Prescriptions: Continued multivitamin with minerals Tablet 1 tab PO DAILY loratadine 10 mg Tablet 10 mg PO DAILY tamsulosin 0.4 mg capsule 0.4 mg PO QAM pantoprazole 20 mg tablet,delayed release (DR/EC) 20 mg PO DAILY acetaminophen [Tylenol Extra Strength] 500 mg Tablet 1,000 mg PO Q8H PRN (Reason: pain) Qty: 30 0RF amlodipine 2.5 mg tablet 2.5 mg PO DAILY Qty: 30 0RF clopidogrel 75 mg Tablet 75 mg PO QAM Qty: 30 0RF ropinirole 0.5 mg tablet 0.5 mg PO HS Qty: 30 0RF lisinopril 10 mg tablet 10 mg PO DAILY Qty: 30 0RF metoprolol succinate 25 mg tablet extended release 24 hr 25 mg PO HS Qty: 30 0RF ezetimibe 10 mg tablet 10 mg PO QAM Qty: 30 0RF Eliquis 5 mg tablet 5 mg PO BID Qty: 30 0RF Discharge Orders: Discharge Order (Routine); Ordered 05/24/23 Ordered By: Hemant Rose Admission Data Admit Date/Time: 05/20/23 06:19 Attending Provider: Hemant Rose Admit Provider: Kim Giang Primary Care Provider: Cal Lauren III Other Providers: Kim Giang ; Oscar Waterman ; Scar Strauss ; Horacio Penaloza ; Asad Alford ; Jayesh Randolph ; Addison Díaz Jr ; Kin White ; Jennifer Barrios ; Alexandra Coles ; Jose M Agudelo ; Inocente Mcpherson ; Dax Oliver ; Dottie Ross ; Leora Barone ; Rahat Campos ; Eulalio Patel ; Asad Macdonald V. ; [facility] Other Interventions: Discharge Summary Assessment (RN) Last Done: 05/24/23 15:44 Coding Diagnoses Acute pancreatitis K85.90 Nonsustained ventricular tachycardia I47.29 Delirium R41.0 Dyspnea R06.00 CAD (coronary artery disease) I25.110 Associated angina: with unstable angina Coronary Disease-Associated Artery/Lesion type: [place] artery [place] vs. transplanted heart: [place]chan heart CVA (cerebral vascular accident) I63.9 GERD (gastroesophageal reflux disease) K21.9 HTN (hypertension) I10 Hypertension type: essential hypertension DM (diabetes mellitus) E11.9 Diabetes mellitus type: type 2 Diabetes mellitus joint terminal attack controller insulin use: without retirement use Diabetes mellitus complication status: without complication
== END 2023-05-24 16:26 | DRG 439 ==
LOC: ED 02:04 → SUATTDRO 06:19 → EDINP 06:19 → 2S 08:41